=== PATIENT | female | born 1950 | race Caucasian/White ===

== ENCOUNTER → 2019-01-29 | Outpatient (CLI) | payer MEDICARE ==
--- NOTE | 2019-01-31 13:45 | MM ---
Reason for exam: screening (asymptomatic). Last mammogram was performed 11 years and 4 months ago. Physical Findings: A clinical breast exam by your physician is recommended on an annual basis and results should be correlated with mammographic findings. MG 3D Screening Mammo W/Cad Bilateral CC and MLO view(s) were taken. Prior study comparison: September 19, 2007, bilateral digital screening mammogram. The breast tissue is almost entirely fat. No significant changes when compared with prior studies. ASSESSMENT: Benign, BI-RAD 2 RECOMMENDATION: Routine screening mammogram of both breasts in 1 year.
== END | disposition home or self-care (01) ==
LOC: RADMAMWWP 13:16
PROVIDERS: ATTEND Family Medicine
DX: Z12.31 Encounter for screening mammogram for malignant neoplasm of breast (principal)
CPT/HCPCS: 77063; 77067

== ENCOUNTER → 2023-06-06 | Outpatient (CLI) | payer MEDICARE ==
--- NOTE | 2023-06-06 14:52 | XR ---
EXAMINATION TYPE: XR chest 2V DATE OF EXAM: 06/06/2023 COMPARISON: None HISTORY: 73-year-old female cough and shortness of breath TECHNIQUE: Frontal and lateral views FINDINGS: The heart is normal size. Aorta and pulmonary vasculature within normal limits. Atherosclerotic arch calcifications. Hyperinflation. There is patchy left basilar opacity in the periphery of the lung. No other consolidation or pleural effusion seen. IMPRESSION: 1. COPD. 2. There is some patchy opacity at the periphery of the left base that could represent atelectasis or a developing infiltrate/pneumonia. Clinically correlate.
== END | disposition home or self-care (01) ==
LOC: RADXRYALE 11:19
PROVIDERS: ATTEND Physician Assistant
DX: J44.9 Chronic obstructive pulmonary disease, unspecified (principal)
CPT/HCPCS: 71046

== ENCOUNTER 2023-06-17 12:51 | Inpatient (IN) | payer MEDICARE ==
[2023-06-17] MEDS ORDERED: DILTIAZEM DRIP BOLUS FROM BAG 1 MG SOLN IV STA (13:14)
[2023-06-17] MEDS ORDERED: ASPIRIN 81 MG PO STA (13:14)
[2023-06-17] MEDS ORDERED: DILTIAZEM 125 MG in SODIUM CHLORIDE 0.9% 100 ML IV SCH (13:15)
[2023-06-17] MEDS ORDERED: SODIUM CHLORIDE 0.9% 500 ML 500 ML IV STA (13:19)
--- NOTE | 2023-06-17 13:28 | ED ---
General Adult HPI - General Chief complaint: Arrhythmia/Palpitations Stated complaint: Tachycardia Time Seen by Provider: 06/17/23 13:02 Source: patient, RN notes reviewed, old records reviewed Mode of arrival: ambulatory Limitations: no limitations, physical limitation - History of Present Illness Initial comments: Patient is a 73-year-old female with past medical history remarkable for COPD, hypertension who presents mostly department: Palpitations and intermittent shortness of breath for last 2 days. Just finished a long course of steroids and antibiotics 3 days ago for upper respiratory infection as prescribed by PCP. States that since that time she has been feeling somewhat off. Originally thought it was just residual effects from the steroids however said comments today due to persistent palpitations. Denies any cristina chest pain. States she feels like her heart is racing. Denies nausea, vomiting, abdominal pain. Nurses mild exertional dyspnea. Is not usually on oxygen at home. Denies any lower extremity edema. No history of blood clots. No history of cardiac stents. Presents for further evaluation of this time. Is not on blood thinners. No trauma. - Related Data Home Medications Medication Instructions Recorded Confirmed Albuterol Sulfate [Albuterol 1 - 2 puff PO RT-Q4H PRN 06/17/23 06/17/23 Sulfate Hfa] Fluticasone/Umeclidin/Vilanter 1 puff INHALATION RT-DAILY 06/17/23 06/17/23 [Trelegy Ellipta 100-62.5-25] Lisinopril-Hctz 20-12.5 mg 1 tab PO DAILY 06/17/23 06/17/23 [Zestoretic 20-12.5] Allergies Allergy/AdvReac Type Severity Reaction Status Date / Time No Known Allergies Allergy Verified 06/17/23 17:11 Review of Systems ROS Statement: Those systems with pertinent positive or pertinent negative responses have been documented in the HPI. Review of Systems: CONST: Denies fever EYES: Denies blurry vision ENT: Denies nasal congestion C/V: Endorses palpitations RESP: Endorses mild shortness of breath GI: Denies abdominal pain : Denies dysuria SKIN: Denies rash. MSK: Denies joint pain. NEURO: Denies headache ROS Other: All systems not noted in ROS Statement are negative. Past Medical History Past Medical History: COPD, Hypertension History of Any Multi-Drug Resistant Organisms: None Reported Additional Past Surgical History / Comment(s): Eye Past Psychological History: No Psychological Hx Reported Smoking Status: Former smoker Past Alcohol Use History: Occasional Past Drug Use History: Marijuana General Exam - General Exam Comments Initial Comments: General: Appears in no acute distress. HEAD: Normal with no signs of head trauma. EYES: PERRLA, EOMI, conjunctiva normal, no discharge. ENT: Hearing grossly intact, normal oropharynx. RESPIRATORY: Clear breath sounds bilaterally. Very mild wheezing bilaterally C/V: Irregular rate and rhythm. S1 and S2 auscultated, no significant edema, peripheral pulses 2+ and intact throughout ABD: Abd is soft, nontender, nondistended EXT: Normal range of motion, no obvious deformity SKIN: No rashes or lesions observed on exposed skin.] NEURO:Alert and oriented x 4. Limitations: no limitations, physical limitation Course Vital Signs 06/17/23 06/17/23 06/17/23 12:54 13:30 13:59 Temperature 98.3 F Pulse Rate 170 H 158 H 144 H Respiratory 22 19 18 Rate Blood Pressure 60/32 129/88 116/72 O2 Sat by Pulse 92 L 97 Oximetry 06/17/23 06/17/23 14:00 15:00 Temperature Pulse Rate 133 H 120 H Respiratory 18 Rate Blood Pressure 98/82 113/82 O2 Sat by Pulse 97 Oximetry Medical Decision Making - Medical Decision Making Was pt. sent in by a medical professional or institution ([facility], OIL PIPE INSPECTOR, urgent care, hospital, or alf...) When possible be specific @ -No Did you speak to anyone other than the patient for history (EMS, parent, family, police, friend...)? What history was obtained from this source @ -No Did you review nursing and triage notes (agree or disagree)? Why? @ -I reviewed and agree with nursing and triage notes Were old charts reviewed (outside hosp., previous admission, EMS record, old EKG, old radiological studies, urgent care reports/EKG's, alf records)? Report findings @ -Old charts reviewed Differential Diagnosis (chest pain, altered mental status, abdominal pain women, abdominal pain men, vaginal bleeding, weakness, fever, dyspnea, syncope, headache, dizziness, GI bleed, back pain, seizure, CVA, palpatations, mental health, musculoskeletal)? @ -Differential Palpitations Ventricular arrhythmias, atrial arrhythmias, myocardial infarction, anemia, thyrotoxicosis, electrolyte imbalance, hypokalemia, pulmonary embolism, pulmonary disease, drugs, alcohol, anxiety, stress.... This is not meant to be an all-inclusive list. EKG interpreted by me (3pts min.). @ -As above X-rays interpreted by me (1pt min.). @ -Chest x-ray reveals possible right lower lobe infiltrate. CT interpreted by me (1pt min.). @ -None done U/S interpreted by me (1pt. min.). @ -None done What testing was considered but not performed or refused? (CT, X-rays, U/S, labs)? Why? @ -None What meds were considered but not given or refused? Why? @ -None Did you discuss the management of the patient with other professionals (professionals i.e. , PA, OIL PIPE INSPECTOR, lab, RT, psych nurse, social media job titles, radio sales account executive, teacher, mechanical engineering officer, field nurse case manager)? Give summary @ -I discussed with the admitting physician, Dr. Sánchez who accepted the patient. Was smoking cessation discussed for >3mins.? @ -No Was critical care preformed (if so, how long)? @ -Yes, 38 minutes Were there social determinants of health that impacted care today? How? (Homelessness, low income, unemployed, alcoholism, drug addiction, transportation, low edu. Level, literacy, decrease access to med. care, prison, rehab)? @ -No Was there de-escalation of care discussed even if they declined (Discuss DNR or withdrawal of care, Hospice)? DNR status @ -No What co-morbidities impacted this encounter? (DM, HTN, Smoking, COPD, CAD, Cancer, CVA, ARF, Chemo, Hep., AIDS, mental health diagnosis, sleep apnea, morbid obesity)? @ -None Was patient admitted / discharged? Hospital course, mention meds given and route, prescriptions, significant lab abnormalities, going to OR and other pertinent info. @ -Based on the patient's presentation and physical exam, patient presents lying of palpitations. Appears to be in atrial fibrillation with RVR. Blood pressure with questionable reliability obtained in triage was 60/32. Patient was brought to trauma bay 1. Repeat blood pressures within acceptable limits. Patient has no symptoms at this time other than mild palpitations and is in A. fib with RVR. We will obtain cardiac workup. Patient agreement this plan. She will receive a small bolus of IV fluids as well as Cardizem drip and an aspirin. We'll screen the patient for a PE. Patient was in agreement this plan. Patient also be started on heparin. Patient was in agreement this plan. Chest x-ray unremarkable other than possible mild developing right lower lobe infiltrate. Labs are remarkable for an elevated d-dimer at 2.19. Undetectable troponin. BNP slightly elevated for her age. Likely secondary to the A. fib. Remainder the labs are within acceptable limits. I discussed results of the patient. Due to the elevated d-dimer, we will obtain a CT PE. CT shows possible infectious process in bilateral lungs but no evidence of pulmonary embolism. On reevaluation, on a Cardizem drip patient's heart rate has improved from 170s to 180s to 120 or less on average. Remains hemodialysis stable. We discussed her workup as well as findings. We will treat the patient with IV antibiotics for the pneumonia, Rocephin as well as azithromycin. He'll be kept on Cardizem drip. She was started on a heparin drip for new onset A. fib. Patient in agreement with this plan. Cardiology consulted. Echo ordered. Discussed with the admitting team, Dr. Sánchez who accepted the patient. Undiagnosed new problem with uncertain prognosis? @ -No Drug Therapy requiring intensive monitoring for toxicity (Heparin, Nitro, Insulin, Cardizem)? @ -Heparin, Cardizem Were any procedures done? @ -No Diagnosis/symptom? @ -New-onset atrial fibrillation with RVR, pneumonia Acute, or Chronic, or Acute on Chronic? @ -Acute Uncomplicated (without systemic symptoms) or Complicated (systemic symptoms)? @ -Complicated Side effects of treatment? @ -No Exacerbation, Progression, or Severe Exacerbation? @ -No Poses a threat to life or bodily function? How? (Chest pain, USA, IA, pneumonia, PE, COPD, DKA, ARF, appy, cholecystitis, CVA, Diverticulitis, Homicidal, Suicidal, threat to staff... and all critical care pts) @ -Yes - Lab Data Result diagrams: 06/17/23 13:20 06/17/23 13:20 Lab Results 06/17/23 06/17/23 06/17/23 Range/Units 13:20 13:20 13:20 WBC 9.8 (3.8-10.6) k/uL RBC 3.92 (3.80-5.40) m/uL Hgb 13.8 (11.4-16.0) gm/dL Hct 41.2 (34.0-46.0) % MCV 105.0 H (80.0-100.0) fL MCH 35.2 H (25.0-35.0) pg MCHC 33.5 (31.0-37.0) g/dL RDW 13.2 (11.5-15.5) % Plt Count 298 (150-450) k/uL MPV 7.8 Neutrophils % 79 % Lymphocytes % 13 % Monocytes % 5 % Eosinophils % 1 % Basophils % 0 % Neutrophils # 7.8 H (1.3-7.7) k/uL Lymphocytes # 1.3 (1.0-4.8) k/uL Monocytes # 0.5 (0-1.0) k/uL Eosinophils # 0.1 (0-0.7) k/uL Basophils # 0.0 (0-0.2) k/uL Macrocytosis Slight PT 11.8 (10.0-12.5) sec INR 1.1 (<1.2) APTT 22.3 (22.0-30.0) sec D-Dimer 2.92 H (<0.60) mg/L FEU Sodium (137-145) mmol/L Potassium (3.5-5.1) mmol/L Chloride (98-107) mmol/L Carbon Dioxide (22-30) mmol/L Anion Gap mmol/L BUN (7-17) mg/dL Creatinine (0.52-1.04) mg/dL Est GFR (CKD-EPI)AfAm (>60 ml/min/1.73 sqM) Est GFR (CKD-EPI)NonAf (>60 ml/min/1.73 sqM) Glucose (74-99) mg/dL Calcium (8.4-10.2) mg/dL Magnesium (1.6-2.3) mg/dL Total Bilirubin (0.2-1.3) mg/dL AST (14-36) U/L ALT (4-34) U/L Alkaline Phosphatase (38-126) U/L Troponin I (0.000-0.034) ng/mL NT-Pro-B Natriuret Pep pg/mL Total Protein (6.3-8.2) g/dL Albumin (3.5-5.0) g/dL TSH (0.465-4.680) mIU/L Urine Color Yellow Urine Appearance Clear (Clear) Urine pH 6.0 (5.0-8.0) Ur Specific [place] 1.012 (1.001-1.035) Urine Protein Negative (Negative) Urine Glucose (UA) Negative (Negative) Urine Ketones Negative (Negative) Urine Blood Negative (Negative) Urine Nitrite Negative (Negative) Urine Bilirubin Negative (Negative) Urine Urobilinogen <2.0 (<2.0) mg/dL Ur Leukocyte Esterase Negative (Negative) Influenza Type A (PCR) (Not Detectd) Influenza Type B (PCR) (Not Detectd) RSV (PCR) (Not Detectd) SARS-CoV-2 (PCR) (Not Detectd) 06/17/23 06/17/23 06/17/23 Range/Units 13:20 13:20 13:20 WBC (3.8-10.6) k/uL RBC (3.80-5.40) m/uL Hgb (11.4-16.0) gm/dL Hct (34.0-46.0) % MCV (80.0-100.0) fL MCH (25.0-35.0) pg MCHC (31.0-37.0) g/dL RDW (11.5-15.5) % Plt Count (150-450) k/uL MPV Neutrophils % % Lymphocytes % % Monocytes % % Eosinophils % % Basophils % % Neutrophils # (1.3-7.7) k/uL Lymphocytes # (1.0-4.8) k/uL Monocytes # (0-1.0) k/uL Eosinophils # (0-0.7) k/uL Basophils # (0-0.2) k/uL Macrocytosis PT (10.0-12.5) sec INR (<1.2) APTT (22.0-30.0) sec D-Dimer (<0.60) mg/L FEU Sodium 131 L (137-145) mmol/L Potassium 4.0 (3.5-5.1) mmol/L Chloride 97 L (98-107) mmol/L Carbon Dioxide 22 (22-30) mmol/L Anion Gap 12 mmol/L BUN 15 (7-17) mg/dL Creatinine 0.62 (0.52-1.04) mg/dL Est GFR (CKD-EPI)AfAm >90 (>60 ml/min/1.73 sqM) Est GFR (CKD-EPI)NonAf >90 (>60 ml/min/1.73 sqM) Glucose 133 H (74-99) mg/dL Calcium 8.9 (8.4-10.2) mg/dL Magnesium 1.9 (1.6-2.3) mg/dL Total Bilirubin 0.7 (0.2-1.3) mg/dL AST 52 H (14-36) U/L ALT 66 H (4-34) U/L Alkaline Phosphatase 96 (38-126) U/L Troponin I <0.012 (0.000-0.034) ng/mL NT-Pro-B Natriuret Pep pg/mL Total Protein 6.6 (6.3-8.2) g/dL Albumin 3.6 (3.5-5.0) g/dL TSH 0.843 (0.465-4.680) mIU/L Urine Color Urine Appearance (Clear) Urine pH (5.0-8.0) Ur Specific [place] (1.001-1.035) Urine Protein (Negative) Urine Glucose (UA) (Negative) Urine Ketones (Negative) Urine Blood (Negative) Urine Nitrite (Negative) Urine Bilirubin (Negative) Urine Urobilinogen (<2.0) mg/dL Ur Leukocyte Esterase (Negative) Influenza Type A (PCR) Not Detected (Not Detectd) Influenza Type B (PCR) Not Detected (Not Detectd) RSV (PCR) Not Detected (Not Detectd) SARS-CoV-2 (PCR) Not Detected (Not Detectd) 06/17/23 Range/Units 13:20 WBC (3.8-10.6) k/uL RBC (3.80-5.40) m/uL Hgb (11.4-16.0) gm/dL Hct (34.0-46.0) % MCV (80.0-100.0) fL MCH (25.0-35.0) pg MCHC (31.0-37.0) g/dL RDW (11.5-15.5) % Plt Count (150-450) k/uL MPV Neutrophils % % Lymphocytes % % Monocytes % % Eosinophils % % Basophils % % Neutrophils # (1.3-7.7) k/uL Lymphocytes # (1.0-4.8) k/uL Monocytes # (0-1.0) k/uL Eosinophils # (0-0.7) k/uL Basophils # (0-0.2) k/uL Macrocytosis PT (10.0-12.5) sec INR (<1.2) APTT (22.0-30.0) sec D-Dimer (<0.60) mg/L FEU Sodium (137-145) mmol/L Potassium (3.5-5.1) mmol/L Chloride (98-107) mmol/L Carbon Dioxide (22-30) mmol/L Anion Gap mmol/L BUN (7-17) mg/dL Creatinine (0.52-1.04) mg/dL Est GFR (CKD-EPI)AfAm (>60 ml/min/1.73 sqM) Est GFR (CKD-EPI)NonAf (>60 ml/min/1.73 sqM) Glucose (74-99) mg/dL Calcium (8.4-10.2) mg/dL Magnesium (1.6-2.3) mg/dL Total Bilirubin (0.2-1.3) mg/dL AST (14-36) U/L ALT (4-34) U/L Alkaline Phosphatase (38-126) U/L Troponin I (0.000-0.034) ng/mL NT-Pro-B Natriuret Pep 2890 pg/mL Total Protein (6.3-8.2) g/dL Albumin (3.5-5.0) g/dL TSH (0.465-4.680) mIU/L Urine Color Urine Appearance (Clear) Urine pH (5.0-8.0) Ur Specific [place] (1.001-1.035) Urine Protein (Negative) Urine Glucose (UA) (Negative) Urine Ketones (Negative) Urine Blood (Negative) Urine Nitrite (Negative) Urine Bilirubin (Negative) Urine Urobilinogen (<2.0) mg/dL Ur Leukocyte Esterase (Negative) Influenza Type A (PCR) (Not Detectd) Influenza Type B (PCR) (Not Detectd) RSV (PCR) (Not Detectd) SARS-CoV-2 (PCR) (Not Detectd) - EKG Data -: EKG Interpreted by Me EKG Comments: 12-lead Electrocardiogram Interpretation Note EKG was reviewed and interpreted by myself. 12-lead ECG performed at 1259 is interpreted by me as revealing atrial fibrillation with RVR at a rate of 168 be ats per minute. [place] is normal. QRS duration is 101 ms, QTc is 344 ms.. There were no ST or T wave abnormalities to suggest myocardial ischemia or injury. R wave progression across the precordium was satisfactory. Critical Care Time Critical Care Time: Yes Total Critical Care Time: 38 Disposition Clinical Impression: Atrial fibrillation, Pneumonia Disposition: ADMITTED IP TO THIS HOSP Condition: Serious Time of Disposition: 16:18
[2023-06-17 13:56] LABS: Basophils % (A) 0 %; Eosinophils # (A) 0.1 k/uL (0-0.7); Eosinophils % (A) 1 %; HCT 41.2 % (34.0-46.0); HGB 13.8 gm/dL (11.4-16.0); Lymphocytes # (A) 1.3 k/uL (1.0-4.8); Lymphocytes % (A) 13 %; MCH 35.2 pg (25.0-35.0); MCHC 33.5 g/dL (31.0-37.0); Macrocytosis Slight; Mean Platelet Volume 7.8; Monocytes # (A) 0.5 k/uL (0-1.0); Monocytes % (A) 5 %; Neutrophils # (A) 7.8 k/uL (1.3-7.7); Neutrophils % (A) 79 %; Platelet Count 298 k/uL (150-450); RBC 3.92 m/uL (3.80-5.40); RDW 13.2 % (11.5-15.5); WBC 9.8 k/uL (3.8-10.6)
--- NOTE | 2023-06-17 14:00 | XR ---
EXAMINATION TYPE: XR chest 1V portable DATE OF EXAM: 06/17/2023 1:55 PM CLINICAL INDICATION:Female, 73 years old with history of cough; [facility] COMPARISON: Chest radiographs from 06/06/2023 TECHNIQUE: XR chest 1V portable Frontal view of the chest. FINDINGS: Lungs/Pleura: Subtle hazy airspace opacities within the right lung base. No evidence of pleural effus ion or pneumothorax Pulmonary vascularity: Unremarkable. Heart/mediastinum: Cardiomediastinal silhouette is unremarkable. Atherosclerotic calcifications are seen in the aorta. Musculoskeletal: No acute osseous pathology. IMPRESSION: Subtle hazy right lower lung airspace opacities which may represent developing airspace disease
[2023-06-17 14:09] LABS: INR 1.1 (<1.2); Partial Thromboplastin Time 22.3 sec (22.0-30.0); Prothrombin Time 11.8 sec (10.0-12.5)
[2023-06-17 14:17] LABS: ALT 66 U/L (4-34); AST 52 U/L (14-36); African American GFR (CKD) >90 (>60 ml/min/1.73 sqM); Albumin 3.6 g/dL (3.5-5.0); Alkaline Phosphatase 96 U/L (38-126); Anion Gap 12 mmol/L; Blood Urea Nitrogen 15 mg/dL (7-17); Calcium 8.9 mg/dL (8.4-10.2); Carbon Dioxide 22 mmol/L (22-30); Chloride 97 mmol/L (98-107); Glucose 133 mg/dL (74-99); Magnesium 1.9 mg/dL (1.6-2.3); Non-African American GFR(CKD) >90 (>60 ml/min/1.73 sqM); Sodium 131 mmol/L (137-145); Total Bilirubin 0.7 mg/dL (0.2-1.3); Total Protein 6.6 g/dL (6.3-8.2)
[2023-06-17 15:04] LABS: Appearance,Urine Clear (Clear); Bilirubin,Urine Negative (Negative); Blood,Urine Negative (Negative); Color,Urine Yellow; Glucose,Urine (UA) Negative (Negative); Ketones,Urine Negative (Negative); Leukocyte Esterase,Urine Negative (Negative); Nitrite,Urine Negative (Negative); Protein,Urine Negative (Negative); Specific Gravity,Urine 1.012 (1.001-1.035); Urobilinogen,Urine <2.0 mg/dL (<2.0)
--- NOTE | 2023-06-17 16:14 | CT ---
EXAMINATION TYPE: CT chest angio for PE CT DLP: 306ml mGycm, Automated exposure control for dose reduction was used. DATE OF EXAM: 06/17/2023 3:17 PM COMPARISON: None. CLINICAL INDICATION:Female, 73 years old with history of elevated dimer, eval for pe; elevated dimer, eval for pe and tachycardia TECHNIQUE/CONTRAST: CTA scan of the thorax is performed with IV Contrast, patient injected with 70ml mL of Isovue 370, [place] P images are created and reviewed these are created on a separate workstation.. FINDINGS: Pulmonary Artery: There is no evidence for a filling defect within the pulmonary vasculature to sugge st acute pulmonary embolism. The pulmonary artery is of normal size 2.5 cm. Heart: The heart is mildly enlarged for size. Mild to moderate coronary arterial calcifications. Vasculature: Mild/moderate calcified atherosclerosis of the aorta without evidence of aneurysm. Mediastinum: Multiple mildly prominent mediastinal nodes without enlargement by size criteria, likely reactive. Airway: Central airways are patent. Mild secretion in the distal trachea. Borderline bronchiectasis b ilaterally. Lower neck: No significant findings. Soft Tissues: Unremarkable. Lungs/Pleura: Moderate to severe centrilobular emphysematous changes bilaterally. There is no discret e mass seen. There are moderate right and small left pleural effusions. Mild stranding at the left lauren ng base, likely atelectasis over infiltrate. Some atelectasis adjacent to the right effusion, with th e appearance of patchy consolidation and some interstitial opacities in the right lung base raising c oncern for possible superimposed pneumonia. No pneumothorax. Musculoskeletal: Generalized bony demineralization. Mild/moderate degenerative changes throughout the spine with slightly exaggerated kyphosis. No acute bony abnormality is seen. Upper Abdomen: No acute abnormalities. There is reflux of contrast to the hepatic veins suggesting ri ght heart insufficiency. Calcified atherosclerotic plaque of the upper abdominal aorta. A low-density 3.3 cm partially exophytic nodule from the superior left kidney, consistent with a cyst. IMPRESSION: 1. No evidence of pulmonary embolism. 2. Atherosclerotic calcifications of the aorta and coronary arteries. 3. Mild cardiomegaly with evidence of right heart insufficiency. Moderate right and small left pleur al effusions. 4. Bibasilar pulmonary opacities, likely atelectasis, with superimposed infectious process considere d especially in the right lung base. 5. Moderate to severe centrilobular pulmonary emphysema.
[2023-06-17] MEDS ORDERED: HEPARIN SODIUM 1,000 UN/ML (10ML VL) IV ONE (16:40)
[2023-06-17] MEDS ORDERED: NALOXONE 0.4 MG/ML 1 ML VIAL IV PRN (16:41)
[2023-06-17] MEDS ORDERED: ONDANSETRON 4 MG/2 ML VIAL IVP PRN (16:41)
[2023-06-17] MEDS ORDERED: ACETAMINOPHEN TAB 325 MG TAB PO PRN (16:41)
[2023-06-17] MEDS ORDERED: SODIUM CHLORIDE 0.9% 1,000 ML IV SCH (16:45)
[2023-06-17] MEDS ORDERED: AZITHROMYCIN 500 MG in SODIUM CHLORIDE 0.9% 250 ML IVPB STA (16:46)
[2023-06-17] MEDS: HEPARIN SOD,PORK IN 0.45% NACL 25,000 UNIT in 0.45% NACL 1 250ML.BAG IV SCH (16:59)
[2023-06-17] MEDS ORDERED: IPRATROPIUM-ALBUTEROL 3 ML NEB INHALATION PRN (18:22)
--- NOTE | 2023-06-17 18:33 | P.HPIM ---
History of Present Illness H&P Date: 06/17/23 History of Presenting Illness: Patient is a very pleasant 73-year-old female with a past medical history of COPD and former nicotine dependence, hypertension, and hyperlipidemia. She reports that over the past 2 weeks she was battling a COPD exacerbation because of a upper respiratory infection. Patient reports she has been using her inhaler frequently and just completed a prednisone taper and 10 day course of doxycycline. Patient reports her upper respiratory infection seems a little better but today she presented to the emergency department secondary to concerns of palpitations and increasing shortness of breath over the past 2 days. Patient states she thought at first she was having a reaction to the steroids, but her PCP told her that is very unlikely she came to the emergency department for evaluation. Patient reports having significant palpitations occur heart is racing out of her chest and is noticed increased shortness of breath during this time. Patient denies having any fevers, chills, diaphoresis, headache, lightheadedness, dizziness, chest pain, or experiencing any numbness/tingling/weakness/swelling in extremities. Patient underwent full evaluation in the emergency department. Vital signs upon arrival heart rate 170, blood pressure 60/32, respiratory rate 22, temperature 98.3F, SpO2 of 92% on room air. EKG completed showing atrial fibrillation with RVR at 168 bpm. Chest x-ray completed showing subtle hazy right lower lung airspace opacities. Labs were completed and reviewed. CBC showing macrocytosis with MCV of 105.0 and MCH of 35.2. BMP showing hyponatremia with sodium of 131 and hypochloremia with chloride of 97. Liver profile showing elevated AST of 52 and ALT of 66. Troponin less than 0.012 and proBNP of 2890. TSH normal findings is 0.843. Urinalysis was negative for infection. Influenza A, influenza B, RSV, and Covid PCR negative. D-dimer coming back elevated at 2.9 to so patient was sent for a CTA chest. CT chest was completed showing no evidence of pulmonary emboli but did reveal mild cardiomegaly with evidence of right heart insufficiency, moderate right and small left pleural effusions, diabetes or pulmonary opacities likely atelectasis, and moderate to severe centrilobular pulmonary emphysema. Patient provided with IV fluid bolus followed by Cardizem bolus and initiation o f Cardizem infusion for control of rapid ventricular rate. Patient started on low intensity heparin infusion for new onset atrial fibrillation. Patient's ventricular rate initially fluctuating between 160s and 180s and is now showing improvement on Cardizem infusion ranging between 90s and 130's. Review of systems: Pertinent positives and negatives as discussed in HPI, a complete review of systems was performed and all other systems are negative. Physical exam: Vital signs reviewed and stable. General: Nontoxic, no distress and appears stated age. Derm: Skin warm and dry, normal coloration for ethnicity. Head: Atraumatic, normocephalic and symmetric. Eyes: EOMs intact, no lid lag, and anicteric sclera Mouth: no lip lesions, mucus membranes moist Cardiovascular: Irregularly irregular, positive posterior tibial pulses bilaterally, and cap refill < 2 seconds. Lungs: Respirations even, regular, and unlabored on room air. Lungs diminished with soft expiratory wheezes, no rhonchi, rales, or crackles noted at this time Abdominal: soft, nontender to palpation, no guarding, no appreciable orga nomegaly Ext: ROM intact. No gross muscle atrophy, no edema, no contractures Neuro: Speech clear, face symmetrical and CN II-XII grossly intact with no noted focal neuro deficits Psych: Alert and oriented to person, place, time, and situation. Appropriate and pleasant affect. Assessment and Plan of Care: New-onset atrial fibrillation with RVR Bilateral pleural effusions COPD with emphysema with mild exacerbation Hypertension Hyperlipidemia Elevated d-dimer, CTA negative for PE -Cardiology consulted for new onset atrial fibrillation with RVR, appreciate recommendations -Continuation of heparin infusion along intensity rate at 12 units/kg/hr. monitor PTT every 6 hours for therapeutic goal of 44-79 seconds. -Continuation of Cardizem infusion at 7.5 mg/hr. Patient's ventricular rate initially fluctuating between 160s and 180s and is now showing improvement on Cardizem infusion ranging between 90s and 130's. -Start patient on metoprolol 25 mg twice a day -Trend troponins -Placed order for Echocardiogram to be completed -Consult to Pulmonology for mild COPD exacerbation -Continue with IV antibiotics Rocephin 2 g IVPB daily and azithromycin 500 mg daily pending pro-calcitonin results. -Oxygenation to be administered and titrated as needed to maintain SPO2 equal to or greater than 92% -Patient remain on Telemetry monitoring. -Continuous Pulse-oximetry -Duonebs scheduled every 4 hours and as needed for SOB and/or wheezing -Incentive Spirometry -Steroids: Solu-Medrol 125 mg IVP 1 dose followed by 40 mg IVP twice daily. Data and imaging reviewed: -Vital signs upon arrival heart rate 170, blood pressure 60/32, respiratory rate 22, temperature 98.3F, SpO2 of 92% on room air. -EKG completed showing atrial fibrillation with RVR at 168 bpm. -Chest x-ray completed showing subtle hazy right lower lung airspace opacities. -Labs were completed and reviewed. CBC showing macrocytosis with MCV of 105.0 and MCH of 35.2. BMP showing hyponatremia with sodium of 131 and hypochloremia with chloride of 97. Liver profile showing elevated AST of 52 and ALT of 66. Troponin less than 0.012 and proBNP of 2890. TSH normal findings is 0.843. Urinalysis was negative for infection. -Influenza A, influenza B, RSV, and Covid PCR negative. -D-dimer coming back elevated at 2.9 to so patient was sent for a CTA chest. CT chest was completed showing no evidence of pulmonary emboli but did reveal mild cardiomegaly with evidence of right heart insufficiency, moderate right and small left pleural effusions, diabetes or pulmonary opacities likely atelect asis, and moderate to severe centrilobular pulmonary emphysema. The patient is admitted with an anticipated greater than 2 midnight stay for evaluation of atrial fibrillation with RVR CODE STATUS: Full code DVT prophylaxis: Heparin infusion Anticipated discharge date: Clinical course to determine Anticipated discharge place: Clinical course to determine Patient was seen independently by Nurse Practitioner. This document was prepared using [employer] dictation software. Please allow for errors in workers compensation analyst while rare they do occur. Ronan Downs NP rendered care for this patient independently, reviewed the findings and plan as documented in the note above. I did not physically speak with or examine the patient on this date. Past Medical History Past Medical History: COPD, Hypertension History of Any Multi-Drug Resistant Organisms: None Reported Additional Past Surgical History / Comment(s): Eye Past Psychological History: No Psychological Hx Reported Smoking Status: Former smoker Past Alcohol Use History: Occasional Past Drug Use History: Marijuana Medications and Allergies Home Medications Medication Instructions Recorded Confirmed Type Albuterol Sulfate [Albuterol 1 - 2 puff PO RT-Q4H PRN 06/17/23 06/17/23 History Sulfate Hfa] Fluticasone/Umeclidin/Vilanter 1 puff INHALATION RT-DAILY 06/17/23 06/17/23 History [Trelegy Ellipta 100-62.5-25] Lisinopril-Hctz 20-12.5 mg 1 tab PO DAILY 06/17/23 06/17/23 History [Zestoretic 20-12.5] Apixaban [Eliquis] 5 mg PO BID 30 Days #60 tab 06/18/23 Rx Allergies Allergy/AdvReac Type Severity Reaction Status Date / Time No Known Allergies Allergy Verified 06/17/23 17:11 Physical Exam Vitals: Vital Signs Temp Pulse Resp BP Pulse Ox 06/17/23 15:00 120 H 113/82 06/17/23 14:00 133 H 18 98/82 97 06/17/23 13:59 144 H 18 116/72 97 06/17/23 13:30 158 H 19 129/88 06/17/23 12:54 98.3 F 170 H 22 60/32 92 L Intake and Output 06/17/23 06/17/23 06/17/23 06:59 14:59 22:59 Other: Weight 71.214 kg Results CBC & Chem 7: 06/18/23 06:36 06/18/23 06:36 Labs: Abnormal Lab Results - Last 24 Hours (Table) 06/17/23 06/17/23 06/17/23 Range/Units 13:20 13:20 13:20 MCV 105.0 H (80.0-100.0) fL MCH 35.2 H (25.0-35.0) pg Neutrophils # 7.8 H (1.3-7.7) k/uL D-Dimer 2.92 H (<0.60) mg/L FEU Sodium 131 L (137-145) mmol/L Chloride 97 L (98-107) mmol/L Glucose 133 H (74-99) mg/dL AST 52 H (14-36) U/L ALT 66 H (4-34) U/L
[2023-06-17] MEDS: SODIUM CHLORIDE 0.9% 1,000 ML IV SCH (18:44)
[2023-06-17] MEDS: methylPREDNISolone SOD SUCCI 125 MG/2 ML VIAL IV STA (18:54)
[2023-06-17] MEDS: IPRATROPIUM-ALBUTEROL 3 ML NEB INHALATION SCH (19:42)
[2023-06-17] MEDS ORDERED: IPRATROPIUM-ALBUTEROL 3 ML NEB INHALATION SCH (20:00)
[2023-06-17] MEDS ORDERED: METOPROLOL TARTRATE 25 MG TAB PO SCH (21:00)
[2023-06-18] MEDS: HEPARIN SODIUM 1,000 UN/ML (10ML VL) IV PRN ×2 (01:50→13:16)
--- NOTE | 2023-06-18 03:57 | P.CNPUL ---
History of Present Illness Consult date: 06/18/23 Requesting physician: Ronan Downs Reason for consult: COPD Chief complaint: Heart palpitations, lightheadedness, shortness of breath History of present illness: I am seeing this patient in consultation today 06/18/2023 in the emergency room after the patient presented yesterday afternoon with the chief complaint of heart palpitations with associated lightheadedness and shortness of breath. She was found to be in atrial fibrillation with RVR. Also, likely has an exacerbation of her known COPD. Patient is a 73-year-old female with past medical history significant for hypertension, COPD, and his remote ex-smoker. Her PCP is Sherin Dow, delores PA out of Dr. Montenegro's office. She normally manages her COPD with a combination of Trelegy inhaler and albuterol rescue inhaler. Over the last 3 weeks, she's been struggling with URI-like symptoms, such as nasal congestion, postnasal drip, and cough with pale yellow sputum. Denies any fevers or chest pain. States that she thinks her granddaughter gave her a cold. She originally visited an urgent care center when this started, and then recently followed up with her PCP. She received a burst taper prednisone and doxycycline outpatient. She did have some initial improvement, but then started to experience chest palpitations that are accompanied with dizziness/lightheaded and shortness of breath. Denies any syncope. Denies any chest pain, lower extremity swelling. On arrival to the emergency room, the patient was found to be in atrial fibrillation with rapid ventricular rate. She was started on Cardizem which is currently infusing at 5 mg per hour. She is also been started on heparin per protocol. Chest x-ray on arrival demonstrated subtle haziness of the right lower lung which may represent developing airspace disease versus atelectasis. D-dimer was elevated. Patient did have a follow-up chest CTA which did not show any pulmonary embolism. There was mild cardiomegaly with evidence of right heart insufficiency. Moderate right and small left pleural effusions. Bibasilar pulmonary opacities likely atelectasis with possible superimposed infectious process at the right lung base. There is moderate to severe centrilobular pulmonary emphysema. Patient is currently sitting up in bed, on room air, in no acute distress. Heart rhythm remains atrial fibrillation with more controlled rate of about 100-110 bpm while at rest. Blood pressure is normotensive. Afebrile. CBC was unremarkable without any leukocytosis. BMP with sodium of 131, potassium 4, chloride 97, serum bicarb 22, BUN 15, creatinine 0.62, glucose 133. Troponins are elevated 3. NT proBNP was 2890. Procalcitonin level low at 0.07. Negative for influenza, RSV, COVID-19. Patient was started on a combination of azithromycin and Rocephin in the ER. Also receiving a combination of DuoNeb's, Symbicort inhaler, and IV Solu-Medrol. Patient is being admitted to the cardiac stepdown unit once bed available. Review of Systems REVIEW OF SYSTEMS: CONSTITUTIONAL: Denies any recent significant weight loss or weight gain. EYES: Denies change in vision. EARS, NOSE, MOUTH, THROAT: Denies headaches, denies sore throat. CARDIOVASCULAR: See HPI. RESPIRATORY: See HPI GASTROINTESTINAL: Denies change in appetite, abdominal pain, nausea and vomiting, or diarrhea GENITOURINARY: Denies hematuria, denies infections. MUSKULOSKELETAL: Denies pain, denies swelling. INTEGUMENTARY: Denies rash, denies eczema. NEUROLOGICAL: Denies recent memory loss, no recent seizure activity. PSYCHIATRIC: Denies anxiety, denies depression. HEMATOLOGIC/LYMPHATIC: Denies anemia, denies enlarged lymph nodes Past Medical History Past Medical History: COPD, Hypertension History of Any Multi-Drug Resistant Organisms: None Reported Additional Past Surgical History / Comment(s): Eye Past Psychological History: No Psychological Hx Reported Smoking Status: Former smoker Past Alcohol Use History: Occasional Past Drug Use History: Marijuana Medications and Allergies Home Medications Medication Instructions Recorded Confirmed Type Albuterol Sulfate [Albuterol 1 - 2 puff PO RT-Q4H PRN 06/17/23 06/17/23 History Sulfate Hfa] Fluticasone/Umeclidin/Vilanter 1 puff INHALATION RT-DAILY 06/17/23 06/17/23 History [Trelegy Ellipta 100-62.5-25] Lisinopril-Hctz 20-12.5 mg 1 tab PO DAILY 06/17/23 06/17/23 History [Zestoretic 20-12.5] Allergies Allergy/AdvReac Type Severity Reaction Status Date / Time No Known Allergies Allergy Verified 06/17/23 17:11 Physical Exam Vitals: Vital Signs Temp Pulse Resp BP Pulse Ox 06/18/23 01:17 107 H 14 105/57 06/17/23 23:18 101 H 14 107/70 92 L 06/17/23 22:21 96 14 91/58 92 L 06/17/23 21:28 93 14 91/59 92 L 06/17/23 20:23 105 H 90/59 92 L 06/17/23 19:44 111 H 16 91/58 95 06/17/23 19:37 104 H 06/17/23 19:32 102 H 06/17/23 18:57 101 H 18 96/47 94 L 06/17/23 15:00 120 H 113/82 06/17/23 14:00 133 H 18 98/82 97 06/17/23 13:59 144 H 18 116/72 97 06/17/23 13:30 158 H 19 129/88 06/17/23 12:54 98.3 F 170 H 22 60/32 92 L Intake and Output 06/17/23 06/17/23 06/18/23 14:59 22:59 06:59 Intake Total 75.062 Balance 75.062 Intake: Intake, IV Titration 75.062 Amount Heparin Sod,Pork in 0.45% 75.062 NaCl 25,000 unit In 0.45 % NaCl 1 250ml.bag @ 12 UNITS/KG/HR 8.546 mls/hr IV .Q24H [facility] Rx#: [id number] Other: Weight 71.214 kg GENERAL EXAM: Alert, 73-year-old white female appearing stated age, comfortable in no apparent distress. HEAD: Normocephalic and atraumatic EYES: Normal reaction of pupils, equal size. NOSE: Clear with pink turbinates. THROAT: No erythema or exudates. NECK: No masses, no JVD. CHEST: No chest wall deformity. LUNGS: Equal air entry with mild end expiratory wheezes heard throughout. No crackles, rhonchi, dullness. On room air. No conversational dyspnea or accessory muscle use.. CVS: S1 and S2 normal with no audible murmur, irregular rhythm. No extra heart sounds ABDOMEN: No hepatosplenomegaly, active bowel sounds, no guarding or rigidity. SPINE: No scoliosis or deformity SKIN: No rashes CENTRAL NERVOUS SYSTEM: No focal deficits, tone is normal in all 4 extremities. EXTREMITIES: There is no peripheral edema, clubbing, or cyanosis. Peripheral pulses are intact. Results - Laboratory Findings CBC and BMP: 06/17/23 13:20 06/17/23 13:20 PT/INR, D-dimer PT 11.8 sec (10.0-12.5) 06/17/23 13:20 INR 1.1 (<1.2) 06/17/23 13:20 D-Dimer 2.92 mg/L FEU (<0.60) H 06/17/23 13:20 Abnormal lab findings: Abnormal Labs 06/17/23 06/17/23 06/17/23 13:20 13:20 13:20 MCV 105.0 H MCH 35.2 H Neutrophils # 7.8 H APTT D-Dimer 2.92 H Sodium 131 L Chloride 97 L Glucose 133 H AST 52 H ALT 66 H 06/17/23 22:58 MCV MCH Neutrophils # APTT 34.5 H D-Dimer Sodium Chloride Glucose AST ALT - Diagnostic Findings Chest x-ray: image reviewed CT scan - chest: image reviewed Assessment and Plan Assessment: New-onset atrial fibrillation with rapid ventricular rate, ventricular response is better controlled, currently on Cardizem infusion Dyspnea, secondary to mild exacerbation of COPD and suspected exacerbation of congestive heart failure. Chest CTA did not show any pulmonary embolism. There was mild cardiomegaly with evidence of right heart insufficiency. Moderate right and small left pleural effusions. Bibasilar pulmonary opacities likely atelectasis with possible superimposed infectious process at the right lung base. There is moderate to severe centrilobular pulmonary emphysema. Benign essential hypertension Chronic obstructive pulmonary disease Remote ex-tobacco smoker Plan: Patient's medications, labs, imaging reviewed Currently on room air. Clinically, superimposed right-sided pneumonia is felt to be less likely. Empiric antibiotics started in ER. Procalcitonin level 0.07. Negative for influenza, RSV, COVID-19 Patient has been started on a combination of DuoNeb's, Symbicort inhaler, and IV Solu-Medrol. Remains on Cardizem infusion at 5 mg per hour and heparin per protocol Echocardiogram is pending. Cardiology also consulted for management of the patient's atrial fibrillation We will continue to follow I have personally seen and examined the patient, performed the documentation and the assessment and plan as written. Number of minutes spent on the visit:20 Time with Patient: Greater than 30
[2023-06-18] MEDS: methylPREDNISolone SOD SUCCI 125 MG/2 ML VIAL IV SCH ×4 (06:32→23:36)
[2023-06-18] MEDS ORDERED: IPRATROPIUM 0.5 MG/2.5 ML NEBU INHALATION SCH (08:00)
[2023-06-18] MEDS ORDERED: NON FORMULARY DRUG (Fluticasone/Umeclidin/Vilanter [Trelegy Ellipta 100-62.5-25] 1 EACH Bl INHALATION SCH (08:00)
[2023-06-18] MEDS ORDERED: SYMBICORT 80-4.5 MCG INHALER INHALATION SCH (08:00)
[2023-06-18] MEDS: SYMBICORT 160-4.5 MCG INHALER INHALATION SCH ×2 (08:11→21:24)
[2023-06-18] MEDS: IPRATROPIUM-ALBUTEROL 3 ML NEB INHALATION SCH ×4 (08:16→21:24)
[2023-06-18 08:49] LABS: Basophils % (A) 0 %; Eosinophils # (A) 0.1 k/uL (0-0.7); Eosinophils % (A) 2 %; HCT 38.3 % (34.0-46.0); HGB 12.6 gm/dL (11.4-16.0); Lymphocytes # (A) 1.4 k/uL (1.0-4.8); Lymphocytes % (A) 22 %; MCH 34.9 pg (25.0-35.0); MCHC 32.9 g/dL (31.0-37.0); MCV 106.2 fL (80.0-100.0); Macrocytosis Moderate; Mean Platelet Volume 8.3; Monocytes # (A) 0.5 k/uL (0-1.0); Monocytes % (A) 8 %; Neutrophils % (A) 65 %; Platelet Count 236 k/uL (150-450); RBC 3.61 m/uL (3.80-5.40); RDW 13.7 % (11.5-15.5); WBC 6.3 k/uL (3.8-10.6)
[2023-06-18] MEDS ORDERED: LISINOPRIL-HCTZ 20-12.5 MG 1 EACH TAB PO SCH (09:00)
[2023-06-18] MEDS ORDERED: AZITHROMYCIN 500 MG in SODIUM CHLORIDE 0.9% 250 ML IVPB SCH (09:00)
[2023-06-18] MEDS ORDERED: methylPREDNISolone SOD SUCCI 40 MG/ML 1 ML VIAL IV SCH (09:00)
[2023-06-18 09:01] LABS: INR 1.1 (<1.2); Prothrombin Time 11.7 sec (10.0-12.5)
[2023-06-18 09:13] LABS: African American GFR (CKD) >90 (>60 ml/min/1.73 sqM); Anion Gap 9 mmol/L; Blood Urea Nitrogen 13 mg/dL (7-17); Calcium 8.6 mg/dL (8.4-10.2); Carbon Dioxide 23 mmol/L (22-30); Chloride 100 mmol/L (98-107); Glucose 90 mg/dL (74-99); Non-African American GFR(CKD) >90 (>60 ml/min/1.73 sqM); Potassium 3.7 mmol/L (3.5-5.1); Sodium 132 mmol/L (137-145)
[2023-06-18] MEDS: METOPROLOL TARTRATE 50 MG TAB PO SCH ×2 (10:01→20:46)
--- NOTE | 2023-06-18 10:19 | CONS ---
CONSULTATION CHIEF COMPLAINT: Palpitations. HISTORY OF PRESENT ILLNESS: Emilia is a 73-year-old lady with history of hypertension and severe COPD, who presented to hospital with sustained palpitations and was found to be in atrial fibrillation with rapid ventricular rate. She has recently suffered from respiratory tract infection and has had COPD exacerbation. At the time of my evaluation, the patient is in atrial fibrillation with better controlled ventricular rate on intravenous Cardizem. There is no prior history of coronary artery disease or congestive heart failure. There is no prior history of atrial fibrillation. The patient's history is significant for hypertension and is currently on Zestoretic. I am going to stop the Cardizem, start her on Lopressor 50 b.i.d., obtain a 2D echo, continue the heparin and convert her to Eliquis or Xarelto depending upon what her insurance covers. PAST MEDICAL HISTORY: Significant for COPD and hypertension. MEDICATIONS: Include: 1. Zestoretic. 2. Albuterol. ALLERGIES: There are no known drug allergies. FAMILY HISTORY: Negative for premature coronary artery disease. SOCIAL HISTORY: Negative for smoking, EtOH abuse, or drug abuse. REVIEW OF SYSTEMS: HEENT: Unremarkable. CARDIAC: As described above. RESPIRATORY: As described above. GI: Negative. GENITOURINARY: Negative. ALLERGY/IMMUNOLOGY: Negative. SKIN: Negative. MUSCULOSKELETAL: Significant for arthritis. PSYCHOSOCIAL: Negative. DERM: Negative. CONSTITUTIONAL: Negative. ONCOLOGICAL: Negative. HAZARD WASTE HANDLER: Negative. Rest of the system review is not relevant. PHYSICAL EXAMINATION: GENERAL: The patient is comfortable at rest. VITAL SIGNS: Afebrile, heart rate is 80 beats per minute, blood pressure is 110/50, respiratory rate is 18. NECK: There is no jugular venous distention. Carotid upstroke is diminished. There is no bruit. CHEST: Reveals good air entry bilaterally without any crackles or rhonchi. HEART: Reveals first and second heart sounds. No gallop. No murmur. ABDOMEN: Soft and nontender. EXTREMITIES: Did not reveal any edema. Peripheral pulses are felt. LABORATORY DATA: Show hemoglobin of 12.6, platelet count is 236. Three sets of troponins are negative. BNP is 2890 of unclear clinical significance. D-dimer was elevated. However, a CT scan of the chest is negative for pulmonary embolism. The chest x-ray did not reveal any evidence of heart failure. CT scan of the chest revealed calcification of the coronaries and the aorta and no pulmonary embolism. ASSESSMENT: 1. Persistent atrial fibrillation with poorly-controlled ventricular rate. 2. Chronic obstructive pulmonary disease exacerbation. 3. Coronary artery disease. PLAN: I will treat the patient with Lopressor. Continue heparin. We need to find out whether she is covered for Eliquis or Xarelto. If not, the patient does not wish to take Coumadin, and if the insurance does not cover it, she states that she will not be able to afford either Xarelto or Eliquis, but we need to find out what it costs. If not, she wishes to take aspirin. MMODL / IJN: [id number] /
[2023-06-18] MEDS: SODIUM CHLORIDE 0.9% 1,000 ML IV SCH (13:27)
--- NOTE | 2023-06-18 14:40 | CA ---
Transthoracic Echo Report Name: Emilia Woodward Age: 73 Gender: F : 1950 Exam Date: 06/18/2023 11:59 Exam Location: [facility] Ht (in): 64 Wt (lb): 157 Ordering Physician: Ronan Downs Attending/Referring Phys: Split Leather Mosser Ted Tillman Procedure CPT: Indications: new-onset atrial fibrillation Cardiac Hx: Technical Quality: Fair Contrast 1: Total Dose (mL): Contrast 2: Total Dose (mL): MEASUREMENTS (Male / Female) Normal Values 2D ECHO LV Diastolic Diameter PLAX 5.4 cm 4.2 - 5.9 / 3.9 - 5.3 cm IVS Diastolic Thickness 0.8 cm 0.6 - 1.0 / 0.6 - 0.9 cm LVPW Diastolic Thickness 1.0 cm 0.6 - 1.0 / 0.6 - 0.9 cm LV Relative Wall Thickness 0.3 RV Internal Dim ED PLAX 2.5 cm LVOT Diameter 1.9 cm Aortic Root Diameter 2.2 cm LA Systolic Diameter LX 3.3 cm 3.0 - 4.0 / 2.7 - 3.8 cm LV Diastolic Volume MOD BP 72.4 cm??? 67 - 155 / 56 - 104 cm??? LV Systolic Volume MOD BP 49.5 cm??? 22 - 58 / 19 - 49 cm??? LV Ejection Fraction MOD BP 31.7 % >= 55 % LV Cardiac Index MOD BP 1128.2 cm???/min???m??? LV Diastolic Volume MOD 4C 69.2 cm??? LV Systolic Volume MOD 4C 51.0 cm??? LV Ejection Fraction MOD 4C 26.3 % LV Cardiac Index MOD 4C 896.0 cm???/min???m??? LV Diastolic Length 4C 6.6 cm LV Systolic Length 4C 6.4 cm LV Diastolic Volume MOD 2C 66.5 cm??? LV Systolic Volume MOD 2C 41.4 cm??? LV Ejection Fraction MOD 2C 37.7 % LV Cardiac Index MOD 2C 1231.7 cm???/min???m??? LV Diastolic Length 2C 5.8 cm LV Systolic Length 2C 5.5 cm LA Volume 50.8 cm??? 18 - 58 / 22 - 52 cm??? LA Volume Index 28.1 cm???/m??? 16 - 28 cm???/m??? Ascending Aorta Diameter 2.9 cm DOPPLER MV Peak Velocity 108.8 cm/s MV Peak Gradient 4.7 mmHg MV Mean Velocity 43.4 cm/s MV Mean Gradient 1.0 mmHg MV Velocity Time Integral 22.4 cm MR Peak Velocity 325.8 cm/s MR Peak Gradient 42.5 mmHg Mitral E Point Velocity 98.2 cm/s Mitral A Point Velocity 35.2 cm/s Mitral E to A Ratio 2.8 MV Deceleration Time 108.0 ms MV E' Velocity 8.8 cm/s Mitral E to MV E' Ratio 11.2 TR Peak Velocity 291.2 cm/s TR Peak Gradient 33.9 mmHg Right Ventricular Systolic Press 38.9 mmHg PV Peak Velocity 76.3 cm/s PV Peak Gradient 2.3 mmHg FINDINGS Left Ventricle Normal LV size and wall thickness. Left ventricular ejection fraction is estimated at 25-30 %. Right Ventricle Normal right ventricular size. RVSP=39mmHg. Right Atrium Normal right atrial size. Left Atrium Normal left atrial size. LA volume index= 29ml/m2 Mitral Valve Structurally normal mitral valve. Mild MR. Aortic Valve Trileaflet aortic valve. No aortic regurgitation. No aortic stenosis. Tricuspid Valve Structurally normal tricuspid valve. Mild to Moderate TR. Pulmonic Valve Pulmonic valve not well visualized. No pulmonic regurgitation. Pericardium Normal pericardium. Aorta Normal size aortic root . CONCLUSIONS Left ventricular ejection fraction 25-30% RVSP 39 Mild mitral regurgitation [id number] tricuspid regurgitation No pericardial effusion Previewed by: Dr. Blaise Urena DO (Electronically Signed) Final Date: 18 June 2023 14:39
--- NOTE | 2023-06-18 17:04 | P.PN ---
Subjective Progress Note Date: 06/18/23 Hospital course: Patient is a very pleasant 73-year-old female with a past medical history of COPD and former nicotine dependence, hypertension, and hyperlipidemia. She reports that over the past 2 weeks she was battling a COPD exacerbation because of a upper respiratory infection. Patient reports she has been using her inhaler frequently and just completed a prednisone taper and 10 day course of doxycycline. Patient reports her upper respiratory infection seems a little better but today she presented to the emergency department secondary to concerns of palpitations and increasing shortness of breath over the past 2 days. Patient states she thought at first she was having a reaction to the steroids, but her PCP told her that is very unlikely she came to the emergency department for evaluation. Patient reports having significant palpitations occur heart is racing out of her chest and is noticed increased shortness of breath during this time. Patient denies having any fevers, chills, diaphoresis, headache, lightheadedness, dizziness, chest pain, or experiencing any numbness/tingling/weakness/swelling in extremities. Patient underwent full e valuation in the emergency department. Vital signs upon arrival heart rate 170, blood pressure 60/32, respiratory rate 22, temperature 98.3F, SpO2 of 92% on room air. EKG completed showing atrial fibrillation with RVR at 168 bpm. Chest x-ray completed showing subtle hazy right lower lung airspace opacities. Labs were completed and reviewed. CBC showing macrocytosis with MCV of 105.0 and MCH of 35.2. BMP showing hyponatremia with sodium of 131 and hypochloremia with chloride of 97. Liver profile showing elevated AST of 52 and ALT of 66. Troponin less than 0.012 and proBNP of 2890. TSH normal findings is 0.843. Urinalysis was negative for infection. Influenza A, influenza B, RSV, and Covid PCR negative. D-dimer coming back elevated at 2.9 to so patient was sent for a CTA chest. CT chest was completed showing no evidence of pulmonary emboli but did reveal mild cardiomegaly with evidence of right heart insufficiency, moderate right and small left pleural effusions, diabetes or pulmonary opacities likely atelectasis, and moderate to severe centrilobular pulmonary emphysema. Patient provided with IV fluid bolus followed by Cardizem bolus and initiation of Cardizem infusion for control of rapid ventricular rate. Patient started on low intensity heparin infusion for new onset atrial fibrillation. Patient's ventricular rate initially fluctuating between 160s and 180s and is now showing improvement on Cardizem infusion ranging between 90s and 130's. Physical exam: Patient seen and fully evaluated at bedside this morning she remains with rapid ventricular rate and reports continued cough and shortness of breath. Patient d oes report being somewhat better but states her palpitations severely worsened with any movement just getting up to the bedside commode. Vital signs reviewed and stable. General: Nontoxic, no distress and appears stated age. Derm: Skin warm and dry, normal coloration for ethnicity. Head: Atraumatic, normocephalic and symmetric. Eyes: EOMs intact, no lid lag, and anicteric sclera Mouth: no lip lesions, mucus membranes moist Cardiovascular: Irregularly irregular, positive posterior tibial pulses bilaterally, and cap refill < 2 seconds. Lungs: Respirations even, regular, and unlabored on room air. Lungs diminished with soft expiratory wheezes, no rhonchi, rales, or crackles noted at this time Abdominal: soft, nontender to palpation, no guarding, no appreciable organomegaly Ext: ROM intact. No gross muscle atrophy, no edema, no contractures Neuro: Speech clear, face symmetrical and CN II-XII grossly intact with no noted focal neuro deficits Psych: Alert and oriented to person, place, time, and situation. Appropriate and pleasant affect. Assessment and Plan of Care: New-onset atrial fibrillation with persistent RVR Bilateral pleural effusions COPD with emphysema with mild exacerbation Hypertension Hyperlipidemia Elevated d-dimer, CTA negative for PE -Cardiology following increased metoprolol to 50 mg twice daily. -Continuation of heparin infusion along intensity rate at 12 units/kg/hr. m onitor PTT every 6 hours for therapeutic goal of 44-79 seconds.(PTT subtherapeutic at 22.4 heparin infusion increased to 18 units/kg/hr) -Cardizem infusion was discontinued and metoprolol was increased. -Troponins trended overnight all negative at less than 0.012, 0.016, and less than 0.012. -Placed order for Echocardiogram to be completed -Pulmonology following for mild COPD exacerbation and increased Solu-Medrol to 60 mg IVP every 6 hours. -Pro-calcitonin was negative at 0.07. Discontinued IV antibiotics Rocephin and azithromycin as patient just completed 10 day course of doxycycline. -Oxygenation to be administered and titrated as needed to maintain SPO2 equal to or greater than 92% -Patient remain on Telemetry monitoring. -Monitor Pulse-oximetry -Duonebs scheduled every 4 hours and as needed for SOB and/or wheezing -Incentive Spirometry Data and imaging reviewed: -Vital signs reviewed. Blood pressure 100/55, heart rate 1:15, respiratory rate 20, temp 97.2F, and SpO2 of 95% on room air. -Labs completed and reviewed. CBC unremarkable. BMP revealing hypernatremia with sodium 132. Eliquis script sent to pharmacy for verification of insurance coverage/cost, will plan to transition patient to oral anticoagulant tomorrow morning. CODE STATUS: Full code DVT prophylaxis: Heparin infusion Anticipated discharge date: Clinical course to determine Anticipated discharge place: Clinical course to determine Patient was seen independently by Nurse Practitioner. This document was prepared using [employer] dictation software. Please allow for errors in data warehouse specialist while rare they do occur. Ronan Downs NP rendered care for this patient independently, reviewed the f indings and plan as documented in the note above. I did not physically speak with or examine the patient on this date. Objective - Vital Signs Vital signs: Vital Signs Temp 98.3 F 06/17/23 12:54 Pulse 86 06/18/23 05:41 Resp 16 06/18/23 05:41 BP 103/55 06/18/23 05:41 Pulse Ox 92 L 06/18/23 08:16 FiO2 Intake & Output 06/17/23 06/18/23 06/18/23 18:59 06:59 18:59 Intake Total 75.062 Balance 75.062 Weight 71.214 kg Intake: Intake, IV Titration 75.062 Amount Heparin Sod,Pork in 0.45% 75.062 NaCl 25,000 unit In 0.45 % NaCl 1 250ml.bag @ 12 UNITS/KG/HR 8.546 mls/hr IV .Q24H [facility] Rx#: [id number] - Labs CBC & Chem 7: 06/18/23 06:36 06/18/23 06:36 Labs: Abnormal Lab Results - Last 24 Hours (Table) 06/17/23 06/17/23 06/17/23 Range/Units 13:20 13:20 13:20 MCV 105.0 H (80.0-100.0) fL MCH 35.2 H (25.0-35.0) pg Neutrophils # 7.8 H (1.3-7.7) k/uL APTT (22.0-30.0) sec D-Dimer 2.92 H (<0.60) mg/L FEU Sodium 131 L (137-145) mmol/L Chloride 97 L (98-107) mmol/L Glucose 133 H (74-99) mg/dL AST 52 H (14-36) U/L ALT 66 H (4-34) U/L // Range/Units 22:58 MCV (80.0-100.0) fL MCH (25.0-35.0) pg Neutrophils # (1.3-7.7) k/uL APTT 34.5 H (22.0-30.0) sec D-Dimer (<0.60) mg/L FEU Sodium (137-145) mmol/L Chloride (98-107) mmol/L Glucose (74-99) mg/dL AST (14-36) U/L ALT (4-34) U/L
[2023-06-19 02:29] LABS: Chol/HDL Ratio 2.75 Ratio; LDL Cholesterol,Calculated 86.8 mg/dL (0.0-131.0); VLDL Calculation 16.94 mg/dL (5.00-40.00)
[2023-06-19] MEDS: HEPARIN SOD,PORK IN 0.45% NACL 25,000 UNIT in 0.45% NACL 1 250ML.BAG IV SCH ×2 (03:10→20:28)
[2023-06-19] MEDS: methylPREDNISolone SOD SUCCI 125 MG/2 ML VIAL IV SCH (05:51)
[2023-06-19] MEDS: METOPROLOL TARTRATE 50 MG TAB PO SCH ×2 (08:44→19:59)
[2023-06-19] MEDS: SYMBICORT 160-4.5 MCG INHALER INHALATION SCH (09:53)
[2023-06-19] MEDS: IPRATROPIUM-ALBUTEROL 3 ML NEB INHALATION SCH (09:55)
--- NOTE | 2023-06-19 12:25 | P.PN ---
Subjective Progress Note Date: 06/19/23 Principal diagnosis: Shortness of breath. I am seeing this patient in consultation today 06/18/2023 in the emergency room after the patient presented yesterday afternoon with the chief complaint of heart palpitations with associated lightheadedness and shortness of breath. She was found to be in atrial fibrillation with RVR. Also, likely has an exacerbation of her known COPD. Patient is a 73-year-old female with past medical history significant for hypertension, COPD, and his remote ex-smoker. Her PCP is delores Houston out of Dr. Montenegro's office. She normally m anages her COPD with a combination of Trelegy inhaler and albuterol rescue inhaler. Over the last 3 weeks, she's been struggling with URI-like symptoms, such as nasal congestion, postnasal drip, and cough with pale yellow sputum. Denies any fevers or chest pain. States that she thinks her granddaughter gave her a cold. She originally visited an urgent care center when this started, and then recently followed up with her PCP. She received a burst taper prednisone and doxycycline outpatient. She did have some initial improvement, but then started to experience chest palpitations that are accompanied with dizziness/lightheaded and shortness of breath. Denies any syncope. Denies any chest pain, lower extremity swelling. On arrival to the emergency room, the patient was found to be in atrial fibrillation with rapid ventricular rate. She was started on Cardizem which is currently infusing at 5 mg per hour. She is also been started on heparin per protocol. Chest x-ray on arrival demonstrated subtle haziness of the right lower lung which may represent developing airspace disease versus atelectasis. D-dimer was elevated. Patient did have a follow-up chest CTA which did not show any pulmonary embolism. There was mild cardiomegaly with evidence of right heart insufficiency. Moderate right and small left pleural effusions. Bibasilar pulmonary opacities likely atelectasis with possible superimposed infectious process at the right lung base. There is moderate to severe centrilobular pulmonary emphysema. Patient is currently sitting up in bed, on room air, in no acute distress. Heart rhythm remains atrial fibrillation with more controlled rate of about 100-110 bpm while at rest. Blood pressure is normotensive. Afebrile. CBC was unremarkable without any leukocytosis. BMP with sodium of 131, potassium 4, chloride 97, serum bicarb 22, BUN 15, creatinine 0.62, glucose 133. Troponins are elevated 3. NT proBNP was 2890. Procalcitonin level low at 0.07. Negative for influenza, RSV, COVID-19. Patient was started on a combination of azithromycin and Rocephin in the ER. Also receiving a combination of DuoNeb's, Symbicort inhaler, and IV Solu-Medrol. Patient is being admitted to the cardiac stepdown unit once bed available. Progress note dated 06/19/2023. 73-year-old female who was seen in room 382. She was initially seen in the emergency department, for complaints of heart palpitations, lightheadedness, and shortness of breath. She was found to have atrial fibrillation with RVR. The patient does have a history of hypertension, and COPD. Typically, she is on an albuterol inhaler, and Trelegy. Currently, the patient is on room air. She is receiving IV heparin. We will DC her updrafts, and DC her Symbicort. She will use her home inhalers instead. Laboratory data today includes only a PTT of 55.2. Objective - Vital Signs Vital signs: Vital Signs Temp 97.7 F 06/19/23 08:00 Pulse 134 H 06/19/23 08:00 Resp 18 06/19/23 08:00 BP 95/63 06/19/23 08:00 Pulse Ox 95 06/19/23 08:00 FiO2 Intake & Output 06/18/23 06/19/23 06/19/23 18:59 06:59 18:59 Intake Total 174.938 0 Balance 174.938 0 Weight 63.5 kg 63.5 kg Intake: Intake, IV Titration 174.938 Amount Heparin Sod,Pork in 0.45% 174.938 NaCl 25,000 unit In 0.45 % NaCl 1 250ml.bag @ 12 UNITS/KG/HR 8.546 mls/hr IV .Q24H [facility] Rx#: [id number] Oral 0 Other: Voiding Method Bedside Commode Bedside Commode # Voids 1 # Bowel Movements 1 - Exam No acute distress, oriented 3. Currently on room air. Saturations are 95%. HEENT examination is grossly unremarkable. Mucous membranes are moist. No oral lesions. Neck supple. Full range of motion. No adenopathy thyromegaly or neck vein distention. Cardiovascular examination reveals an irregular rhythm and rate. S1-S2 normal. No S3 or S4. No discernible murmur noted. Heart rate is 134 bpm. The patient is clearly in atrial fibrillation. Lungs reveal mostly clear breath sounds. Breath sounds are equal bilaterally. Minimal scattered rhonchi and crackles are appreciated. No wheezes. Room air saturation 95%. Abdomen soft bowel sounds are heard. No masses or tenderness. Extremities are intact. No cyanosis clubbing or edema. Skin is without rash or lesion. Neurologic examination is brief but nonfocal. - Labs CBC & Chem 7: 06/18/23 06:36 06/18/23 06:36 Labs: Abnormal Lab Results - Last 24 Hours (Table) 06/18/23 06/19/23 Range/Units 19:21 08:14 APTT 59.0 H 55.2 H (22.0-30.0) sec Microbiology - Last 24 Hours (Table) 06/17/23 17:05 Blood Culture - Preliminary Blood 06/17/23 17:20 Blood Culture - Preliminary Blood Assessment and Plan Assessment: New-onset atrial fibrillation with rapid ventricular response. Shortness of breath, multifactorial, in part related to COPD exacerbation, mild CHF, and atrial fibrillation with RVR. Benign essential hypertension. History of COPD, from previous tobacco use. Plan: Plan dated 06/19/2023. The patient is seen in room 382. The patient continues on IV heparin. The patient will use her home inhalers, rather than what we've ordered here in the hospital. Respiratory status is stable. Her room air saturation is 95%. The patient has atrial fibrillation with RVR, with a heart rate of 134 bpm. We will continue to follow, and make recommendations along the way. Overall prognosis remains guarded. She seems relatively stable today. Labs, x-rays, and medications are reviewed. Time with Patient: Less than 30
[2023-06-19] MEDS: FUROSEMIDE 10 MG/ML 2 ML VIAL IV SCH (12:32)
--- NOTE | 2023-06-19 14:03 | P.PN ---
Subjective Progress Note Date: 06/19/23 Hospital course: Patient is a very pleasant 73-year-old female with a past medical history of COPD and former nicotine dependence, hypertension, and hyperlipidemia. She reports that over the past 2 weeks she was battling a COPD exacerbation because of a upper respiratory infection. Patient reports she has been using her inhaler frequently and just completed a prednisone taper and 10 day course of doxycycline. Patient reports her upper respiratory infection seems a little better but today she presented to the emergency department secondary to concerns of palpitations and increasing shortness of breath x2 days. Patient underwent full evaluation in the emergency department. Vital signs upon arrival heart rate 170, blood pressure 60/32, respiratory rate 22, temperature 98.3F, SpO2 of 92% on room air. EKG completed showing atrial fibrillation with RVR at 168 bpm. Chest x-ray completed showing subtle hazy right lower lung airspace opacities. Labs were completed and reviewed. CBC showing macrocytosis with MCV of 105.0 and MCH of 35.2. BMP showing hyponatremia with sodium of 131 and hypochloremia with chloride of 97. Liver profile showing elevated AST of 52 and ALT of 66. Troponin less than 0.012 and proBNP of 2890. TSH normal findings is 0.843. Urinalysis was negative for infection. Influenza A, influenza B, RSV, and Covid PCR negative. D-dimer coming back elevated at 2.9 to so patient was sent for a CTA chest. CT chest was completed showing no evidence of pulmonary emboli but did reveal mild cardiomegaly with evidence of right heart insufficiency, moderate right and small left pleural effusions, diabetes or pulmonary opacities likely atelectasis, and moderate to severe centrilobular pulmonary emphysema. Patient provided with IV fluid bolus followed by Cardizem bolus and initiation of Cardizem infusion for control of rapid ventricular rate, ventricular rate remains rapid but improved and patient's blood pressure did stabilize as well. Patient started on low intensity heparin infusion for new onset atrial fibrillation. She was admitted under our services of consultation to cardiology. Echocardiogram was completed showing a severely impaired EF of 25- 30% with mild to moderate tricuspid regurgitation. Despite medication changes patient remains with uncontrolled rapid ventricular rate. Cardiology discussed with patient recommendations for SHELIA with cardioversion and patient is in agreement. Patient is scheduled to undergo SHELIA with cardioversion tomorrow morning. Physical exam: Patient seen and fully evaluated at bedside this morning she remains with rapid uncontrolled ventricular rate and reports continued shortness of breath accompanied by palpitations with any movement or exertion. Vital signs reviewed and stable. General: Nontoxic, no distress and appears stated age. Derm: Skin warm and dry, normal coloration for ethnicity. Head: Atraumatic, normocephalic and symmetric. Eyes: EOMs intact, no lid lag, and anicteric sclera Mouth: no lip lesions, mucus membranes moist Cardiovascular: Irregularly irregular, positive posterior tibial pulses bilater ally, and cap refill < 2 seconds. Lungs: Respirations even, regular, and unlabored on room air. Lungs diminished with soft expiratory wheezes, no rhonchi, rales, or crackles noted at this time Abdominal: soft, nontender to palpation, no guarding, no appreciable organomegaly Ext: ROM intact. No gross muscle atrophy, no edema, no contractures Neuro: Speech clear, face symmetrical and CN II-XII grossly intact with no noted focal neuro deficits Psych: Alert and oriented to person, place, time, and situation. Appropriate and pleasant affect. Assessment and Plan of Care: New-onset atrial fibrillation with persistent RVR Bilateral pleural effusions secondary to acute systolic heart failure with EF of 25-30% COPD with emphysema with mild exacerbation Hypertension Hyperlipidemia Elevated d-dimer, CTA negative for PE -Cardiology following and discussed case with after school teacher, patient scheduled to undergo SHELIA with cardioversion tomorrow morning. -Continuation of heparin infusion at 18 units/kg/hr and scheduled to discontinue at 9 PM (2 hours after starting oral anticoagulation). Monitor PTT every 6 hours for therapeutic goal of 44-79 seconds.(PTT therapeutic this morning at 59.0, continue rate at 18 Units/kg/hr) -Eliquis sent to pharmacy for insurance auth/verification and will be $150/month. Pt states she is okay with this and order placed for patient to transition to oral anticoagulation with Eliquis 5 mg BID starting tonight. -Continue metoprolol 50 mg twice daily -Echocardiogram revealing Severely reduced EF 25-30% -Pulmonology following for mild COPD exacerbation and increased Solu-Medrol to 60 mg IVP every 6 hours. -Oxygenation to be administered and titrated as needed to maintain SPO2 equal to or greater than 92% -Patient to remain on Telemetry monitoring. -Monitor Pulse-oximetry -Duonebs scheduled every 4 hours and as needed for SOB and/or wheezing -Incentive Spirometry, recommended using 10-15 times hourly while awake. Data and imaging reviewed: -Vital signs reviewed. Blood pressure 95/63, heart rate 134, respiratory rate 18, temperature 97.7F, SpO2 is 95% on room air. CODE STATUS: Full code DVT prophylaxis: Heparin infusion, transitioning to oral anticoagulation with Eliquis. Anticipated discharge date: Clinical course to determine Anticipated discharge place: Clinical course to determine Patient was seen independently by Nurse Practitioner. This document was prepared using [email or web address] dictation software. Please allow for errors in fuse maker while rare they do occur. Ronan Downs NP rendered care for this patient independently, reviewed the findings and plan as documented in the note above. I did not physically speak with or examine the patient on this date. Objective - Vital Signs Vital signs: Vital Signs Temp 97.9 F 06/18/23 20:07 Pulse 110 H 06/19/23 03:55 Resp 18 06/19/23 03:55 BP 98/62 06/19/23 03:55 Pulse Ox 93 L 06/19/23 03:55 FiO2 Intake & Output 06/18/23 06/19/23 06/19/23 18:59 06:59 18:59 Intake Total 174.938 0 Balance 174.938 0 Weight 63.5 kg Intake: Intake, IV Titration 174.938 Amount Heparin Sod,Pork in 0.45% 174.938 NaCl 25,000 unit In 0.45 % NaCl 1 250ml.bag @ 12 UNITS/KG/HR 8.546 mls/hr IV .Q24H [facility] Rx#: [id number] Oral 0 Other: Voiding Method Bedside Commode # Voids 1 # Bowel Movements 1 - Labs CBC & Chem 7: 06/18/23 06:36 06/18/23 06:36 Labs: Abnormal Lab Results - Last 24 Hours (Table) 06/18/23 06/18/23 Range/Units 06:36 19:21 APTT 59.0 H (22.0-30.0) sec Sodium 132 L (137-145) mmol/L Microbiology - Last 24 Hours (Table) 06/17/23 17:05 Blood Culture - Preliminary Blood 06/17/23 17:20 Blood Culture - Preliminary Blood
[2023-06-19] MEDS ORDERED: MIDAZOLAM 2 MG/2 ML VIAL IV PRN (14:28)
[2023-06-19] MEDS ORDERED: BENZOCAINE SPRAY 1 CAN TOPICAL PRN (14:28)
[2023-06-19] MEDS ORDERED: fentaNYL (PF) 50 MCG/ML 5 ML AMP IVP PRN (14:28)
--- NOTE | 2023-06-19 17:56 | P.PN ---
Subjective Progress Note Date: 06/19/23 SUBJECTIVE: Patient continues to be in atrial fibrillation with rapid ventricular response. Her echo cardiac exam showed an EF of 20%. She appears mildly volume overloaded with elevated JVD and 1+ pitting edema in bilateral lower extremity Synopsis: 73-year-old with hypertension and severe COPD presented to the hospital with also of palpitations and chest heaviness. On admission she was found to be in atrial fibrillation with rapid ventricular response. Pulse 125, heart rate 108/77, PHYSICAL EXAMINATION Vital signs reviewed. Head: Normocephalic. Eyes: Sclerae nonicteric. Neck: Brisk carotid upstroke, no jugular venous distention. Lungs: Clear to auscultation. Heart: Irregularly irregular, S1-S2, no S3, no murmur or rub. Abdomen: Soft nontender, positive bowel sounds no organomegaly. Extremities: No edema, intact distal pulses. ASSESSMENT Persistent atrial fibrillation with rapid ventricular response. 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 Continue anticoagulation with Eliquis. Continue metoprolol Patient needs aggressive COPD exacerbation treatment with IV steroids and inhaler therapy. Objective - Vital Signs Vital signs: Vital Signs Temp 98.3 F 06/19/23 16:00 Pulse 125 H 06/19/23 16:00 Resp 18 06/19/23 16:00 BP 130/66 06/19/23 16:00 Pulse Ox 95 06/19/23 16:00 FiO2 Intake & Output 06/18/23 06/19/23 06/19/23 18:59 06:59 18:59 Intake Total 174.938 0 118 Balance 174.938 0 118 Weight 63.5 kg 63.5 kg Intake: Intake, IV Titration 174.938 Amount Heparin Sod,Pork in 0.45% 174.938 NaCl 25,000 unit In 0.45 % NaCl 1 250ml.bag @ 12 UNITS/KG/HR 8.546 mls/hr IV .Q24H [facility] Rx#: [id number] Oral 0 118 Other: Voiding Method Bedside Commode Bedside Commode # Voids 1 # Bowel Movements 1 - Labs CBC & Chem 7: 06/18/23 06:36 06/18/23 06:36 Labs: Abnormal Lab Results - Last 24 Hours (Table) 06/18/23 06/19/23 Range/Units 19:21 08:14 APTT 59.0 H 55.2 H (22.0-30.0) sec Microbiology - Last 24 Hours (Table) 06/17/23 17:05 Blood Culture - Preliminary Blood 06/17/23 17:20 Blood Culture - Preliminary Blood
[2023-06-19] MEDS: APIXABAN 5 MG TAB PO SCH (19:59)
[2023-06-19] MEDS: SODIUM CHLORIDE 0.9% 1,000 ML IV SCH (20:27)
[2023-06-20] MEDS: SODIUM CHLORIDE 0.9% 1,000 ML IV SCH (04:58)
[2023-06-20] MEDS: APIXABAN 5 MG TAB PO SCH ×2 (09:17→19:48)
[2023-06-20] MEDS: predniSONE 10 MG TAB PO SCH (09:17)
[2023-06-20] MEDS: METOPROLOL TARTRATE 50 MG TAB PO SCH ×2 (09:18→19:48)
[2023-06-20] MEDS: FUROSEMIDE 10 MG/ML 2 ML VIAL IV SCH (09:19)
[2023-06-20] MEDS ORDERED: LACTATED RINGERS 1,000 ML IV ONE (10:10)
[2023-06-20] MEDS ORDERED: LIDOCAINE 1% INJ 10MG/ML (20 ML MDV) ONE (10:15)
[2023-06-20] MEDS ORDERED: PROPOFOL 10 MG/ML 20 ML VIAL IV ONE (10:15)
[2023-06-20 10:36] VITALS: TEMP 98
[2023-06-20 12:26] LABS: HCT 38.3 % (34.0-46.0); HGB 12.6 gm/dL (11.4-16.0); MCH 35.2 pg (25.0-35.0); MCV 106.6 fL (80.0-100.0); Macrocytosis Moderate; Mean Platelet Volume 7.5; Platelet Count 235 k/uL (150-450); RBC 3.59 m/uL (3.80-5.40); RDW 13.3 % (11.5-15.5); WBC 11.4 k/uL (3.8-10.6)
[2023-06-20] MEDS: LOSARTAN 25 MG TAB PO SCH (12:32)
[2023-06-20] MEDS: AMIODARONE 200 MG TAB PO SCH ×2 (12:32→19:49)
[2023-06-20 12:44] LABS: ALT 63 U/L (4-34); AST 37 U/L (14-36); African American GFR (CKD) 88 (>60 ml/min/1.73 sqM); Albumin 3.3 g/dL (3.5-5.0); Alkaline Phosphatase 64 U/L (38-126); Anion Gap 10 mmol/L; Blood Urea Nitrogen 25 mg/dL (7-17); Calcium 8.8 mg/dL (8.4-10.2); Carbon Dioxide 26 mmol/L (22-30); Chloride 100 mmol/L (98-107); Glucose 111 mg/dL (74-99); Non-African American GFR(CKD) 76 (>60 ml/min/1.73 sqM); Potassium 3.3 mmol/L (3.5-5.1); Sodium 136 mmol/L (137-145); Total Bilirubin 0.5 mg/dL (0.2-1.3); Total Protein 6.1 g/dL (6.3-8.2)
--- NOTE | 2023-06-20 14:32 | P.PN ---
Subjective Progress Note Date: 06/20/23 Principal diagnosis: Shortness of breath. I am seeing this patient in consultation today 06/18/2023 in the emergency room after the patient presented yesterday afternoon with the chief complaint of heart palpitations with associated lightheadedness and shortness of breath. She was found to be in atrial fibrillation with RVR. Also, likely has an exacerbation of her known COPD. Patient is a 73-year-old female with past medical history significant for hypertension, COPD, and his remote ex-smoker. Her PCP is delores Houston out of Dr. Montenegro's office. She normally m anages her COPD with a combination of Trelegy inhaler and albuterol rescue inhaler. Over the last 3 weeks, she's been struggling with URI-like symptoms, such as nasal congestion, postnasal drip, and cough with pale yellow sputum. Denies any fevers or chest pain. States that she thinks her granddaughter gave her a cold. She originally visited an urgent care center when this started, and then recently followed up with her PCP. She received a burst taper prednisone and doxycycline outpatient. She did have some initial improvement, but then started to experience chest palpitations that are accompanied with dizziness/lightheaded and shortness of breath. Denies any syncope. Denies any chest pain, lower extremity swelling. On arrival to the emergency room, the patient was found to be in atrial fibrillation with rapid ventricular rate. She was started on Cardizem which is currently infusing at 5 mg per hour. She is also been started on heparin per protocol. Chest x-ray on arrival demonstrated subtle haziness of the right lower lung which may represent developing airspace disease versus atelectasis. D-dimer was elevated. Patient did have a follow-up chest CTA which did not show any pulmonary embolism. There was mild cardiomegaly with evidence of right heart insufficiency. Moderate right and small left pleural effusions. Bibasilar pulmonary opacities likely atelectasis with possible superimposed infectious process at the right lung base. There is moderate to severe centrilobular pulmonary emphysema. Patient is currently sitting up in bed, on room air, in no acute distress. Heart rhythm remains atrial fibrillation with more controlled rate of about 100-110 bpm while at rest. Blood pressure is normotensive. Afebrile. CBC was unremarkable without any leukocytosis. BMP with sodium of 131, potassium 4, chloride 97, serum bicarb 22, BUN 15, creatinine 0.62, glucose 133. Troponins are elevated 3. NT proBNP was 2890. Procalcitonin level low at 0.07. Negative for influenza, RSV, COVID-19. Patient was started on a combination of azithromycin and Rocephin in the ER. Also receiving a combination of DuoNeb's, Symbicort inhaler, and IV Solu-Medrol. Patient is being admitted to the cardiac stepdown unit once bed available. Progress note dated 06/19/2023. 73-year-old female who was seen in room 382. She was initially seen in the emergency department, for complaints of heart palpitations, lightheadedness, and shortness of breath. She was found to have atrial fibrillation with RVR. The patient does have a history of hypertension, and COPD. Typically, she is on an albuterol inhaler, and Trelegy. Currently, the patient is on room air. She is receiving IV heparin. We will DC her updrafts, and DC her Symbicort. She will use her home inhalers instead. Laboratory data today includes only a PTT of 55.2. Progress note dated 06/20/2023. 73-year-old female seen in consultation 2 days ago. She seen today in room 382. The patient is scheduled for a transesophageal echocardiogram, and cardioversion today. She's on room air. She has a basic IV. Currently, white count 11.4, hemoglobin 12.6, hematocrit 38.3, with a normal platelet count of 235,000. Sodium 136, potassium 3.3, chlorides 100, CO2 26, BUN 25, and creatinine 0.79. Objective - Vital Signs Vital signs: Vital Signs Temp 98 F 06/20/23 10:45 Pulse 114 H 06/20/23 12:31 Resp 17 06/20/23 11:28 BP 107/70 06/20/23 12:31 Pulse Ox 94 L 06/20/23 11:28 FiO2 Intake & Output 06/19/23 06/20/23 06/20/23 18:59 06:59 18:59 Intake Total 118 221.555 290 Balance 118 221.555 290 Weight 63.5 kg Intake: IV 50 Intake, IV Titration 221.555 Amount Heparin Sod,Pork in 0.45% 221.555 NaCl 25,000 unit In 0.45 % NaCl 1 250ml.bag @ 12 UNITS/KG/HR 8.546 mls/hr IV .Q24H [facility] Rx#: [id number] Oral 118 240 Other: Voiding Method Bedside Commode Bedside Commode Bedside Commode # Voids 3 - Exam No acute distress, oriented 3. Currently on room air. Saturations are 94%. HEENT examination is grossly unremarkable. Mucous membranes are moist. No oral lesions. Neck supple. Full range of motion. No adenopathy thyromegaly or neck vein distention. Cardiovascular examination reveals an irregular rhythm and rate. S1-S2 normal. No S3 or S4. No discernible murmur noted. Heart rate is 114 bpm. The patient is clearly in atrial fibrillation. Lungs reveal mostly clear breath sounds. Breath sounds are equal bilaterally. Minimal scattered rhonchi and crackles are appreciated. No wheezes. Room air saturation 94 %. Abdomen soft bowel sounds are heard. No masses or tenderness. Extremities are intact. No cyanosis clubbing or edema. Skin is without rash or lesion. Neurologic examination is brief but nonfocal. - Labs CBC & Chem 7: 06/20/23 11:52 06/20/23 11:52 Labs: Abnormal Lab Results - Last 24 Hours (Table) 06/20/23 06/20/23 Range/Units 11:52 11:52 WBC 11.4 H (3.8-10.6) k/uL RBC 3.59 L (3.80-5.40) m/uL MCV 106.6 H (80.0-100.0) fL MCH 35.2 H (25.0-35.0) pg Sodium 136 L (137-145) mmol/L Potassium 3.3 L (3.5-5.1) mmol/L BUN 25 H (7-17) mg/dL Glucose 111 H (74-99) mg/dL AST 37 H (14-36) U/L ALT 63 H (4-34) U/L Total Protein 6.1 L (6.3-8.2) g/dL Albumin 3.3 L (3.5-5.0) g/dL Microbiology - Last 24 Hours (Table) 06/17/23 17:05 Blood Culture - Preliminary Blood 06/17/23 17:20 Blood Culture - Preliminary Blood Assessment and Plan Assessment: New-onset atrial fibrillation with rapid ventricular response. Shortness of breath, multifactorial, in part related to COPD exacerbation, mild CHF, and atrial fibrillation with RVR. Benign essential hypertension. History of COPD, from previous tobacco use. Plan: Plan dated 06/19/2023. The patient is seen in room 382. The patient continues on IV heparin. The patient will use her home inhalers, rather than what we've ordered here in the hospital. Respiratory status is stable. Her room air saturation is 95%. The patient has atrial fibrillation with RVR, with a heart rate of 134 bpm. We will continue to follow, and make recommendations along the way. Overall prognosis remains guarded. She seems relatively stable today. Labs, x-rays, and medications are reviewed. Plan dated 06/20/2023. The patient is seen in room 382. The patient scheduled for a transesophageal echocardiogram, and possible cardioversion today. From the pulmonary standpoint, she is doing well. She's on room air. Saturations are 94%. She is using her home bronchodilators. Labs, x-rays, medications are reviewed. We will continue to follow the patient, and make recommendations where appropriate. Prognosis is guarded. Time with Patient: Less than 30
[2023-06-20] MEDS ORDERED: POTASSIUM CHLORIDE ER 20 MEQ TAB.ER PO STA (16:00)
--- NOTE | 2023-06-20 16:04 | P.PN ---
Subjective Progress Note Date: 06/20/23 (delayed charting seen at 1215) Patient is a t 73-year-old female with COPD , hypertension, and hyperlipidemia who presented to the ED with compliants of palpitations. For the last 2 weeks she has been battling a COPD exacerbation due to a upper respiratory tract infection, she just completed a prednisone taper and 10 day course of doxycycline. In the emergency department she underwent an extensive evaluation. Her initial heart rate was 170 and blood pressure 60/32. EKG confirmed atrial fibrillation with RVR. Chest x-ray demonstrated subtle right lower lobe opacities. CTA of the chest showed bilateral pulmonary opacities likely atelectasis, moderate to severe emphysema, and mild cardiomegaly with evidence of right heart insufficiency. Initial labs were remarkable for d-dimer of 2.92, sodium 132, BNP 2890. Insulin to A/P/RSV/COVID-19 testing was negative. Patient was subsequently started on IV fluids and a Cardizem bolus. She was then initiated on a heparin drip. New-onset A. fib. She was admitted with consultation to cardiology and pulmonary. She was transitioned from Cardizem to amiodarone. A cardiogram was completed and showed ejection fraction of 25-30% with mild to moderate tricuspid regurgitation. Her troponins remained negative. She continued to have atrial fibrillation with rapid ventricular spots the patient underwent cardioversion on 06/20/23. Unfortunately cardioversion was unsuccessful. Patient seen and examined at bedside. She continues to have some palpitation. She denies any overt chest discomfort. She has significant dyspnea when she attempts to move. She is frustrated that the cardioversion was unsuccessful. Vital signs reviewed General: nontoxic, no distress, appears at stated age Cardiovascular: S1-S2 regular and tachycardic, no murmur, positive posterior tibial pulse bilateral, Lungs: CTA bilateral, no rhonchi, no rales , no accessory muscle use Abdominal: soft, nontender to palpation, no guarding, no appreciable organomegaly Ext: no gross muscle atrophy, 1+ pitting edema bilateral lower extremities, no contractures Neuro: CN II-XI grossly intact, no focal neuro deficits Psych: Alert, oriented, appropriate affect Assessment/Plan: Newly discovered atrial fibrillation with rapid ventricular response Newly discovered systolic cardiomyopathy with acute exacerbation, ejection fraction 25-30% Transaminitis, improving, likely secondary congestion Hyponatremia, suspect secondary to fluid overload, improving Acute exacerbation of COPD -Eliquis 5 mg by mouth twice daily -Patient has been transitioned from IV amiodarone to amiodarone 400 mg by mouth twice daily, metoprolol 50 mg twice daily -Add Cozaar 12.5 mg daily for guideline-directed medical therapy, repeat K+ in AM and consider adding aldactone. -Pulmonary review: Continue with bronchodilators transitioned to oral prednisone -Prednisone 30 mg daily - Completed 2 doses of IV lasix. Hypokalemia -Potassium chloride 40 mEq by mouth 1 Imaging: None New Data Review: Labs reviewed from today include CBC and CMP which are remarkable for white blood cell count 11.4, sodium 136, potassium 3.3, AST 37, ALT 63 DVT prophylaxis: Discussed with: Anticipated discharge date: Anticipated discharge place: This dictation was prepared using [employer] voice recognition software. Though every attempt is made to correct errors during dictation some may still exist. Objective - Vital Signs Vital signs: Vital Signs Temp 98 F 06/20/23 10:45 Pulse 114 H 06/20/23 12:31 Resp 17 06/20/23 11:28 BP 107/59 06/20/23 14:30 Pulse Ox 94 L 06/20/23 11:28 FiO2 Intake & Output 06/19/23 06/20/23 06/20/23 18:59 06:59 18:59 Intake Total 118 221.555 290 Balance 118 221.555 290 Weight 63.5 kg Intake: IV 50 Intake, IV Titration 221.555 Amount Heparin Sod,Pork in 0.45% 221.555 NaCl 25,000 unit In 0.45 % NaCl 1 250ml.bag @ 12 UNITS/KG/HR 8.546 mls/hr IV .Q24H [facility] Rx#: [id number] Oral 118 240 Other: Voiding Method Bedside Commode Bedside Commode Bedside Commode # Voids 3 - Labs CBC & Chem 7: 06/20/23 11:52 06/20/23 11:52 Labs: Abnormal Lab Results - Last 24 Hours (Table) 06/20/23 06/20/23 Range/Units 11:52 11:52 WBC 11.4 H (3.8-10.6) k/uL RBC 3.59 L (3.80-5.40) m/uL MCV 106.6 H (80.0-100.0) fL MCH 35.2 H (25.0-35.0) pg Sodium 136 L (137-145) mmol/L Potassium 3.3 L (3.5-5.1) mmol/L BUN 25 H (7-17) mg/dL Glucose 111 H (74-99) mg/dL AST 37 H (14-36) U/L ALT 63 H (4-34) U/L Total Protein 6.1 L (6.3-8.2) g/dL Albumin 3.3 L (3.5-5.0) g/dL Microbiology - Last 24 Hours (Table) 06/17/23 17:05 Blood Culture - Preliminary Blood 06/17/23 17:20 Blood Culture - Preliminary Blood
--- NOTE | 2023-06-21 00:20 | CE ---
CARDIAC ELECTROPHYSIOLOGY REPORT INDICATION: Persistent atrial fibrillation with rapid ventricular rate. PROCEDURE: Transesophageal echocardiogram. INDICATION: To rule out intracardiac thrombus prior to cardioversion. PROCEDURE NOTE: After obtaining informed consent, transesophageal echocardiogram was performed in left lateral position using an Omniplane probe. Local and IV sedation were obtained by the electrical engineering technologist. FINDINGS: 1. There is no intracardiac thrombus within the left atrial appendage, left atrium, right atrium, left ventricle, or right ventricle. 2. There is severe biatrial enlargement. 3. Right ventricle has normal size and function. 4. Left ventricle appears mildly dilated, shows severe diffuse global hypokinesis with severe LV dysfunction with an ejection fraction 25% to 30%. 5. Mitral valve is anatomically normal. There is moderate central mitral regurgitation noted. 6. There is mild tricuspid regurgitation noted. 7. The aortic valve is a 3-leaflet valve. There is no evidence of aortic stenosis or regurgitation. Aortic root appears normal. 8. There is no evidence of [id number] shunt by color-flow Doppler or [id number]-[id number] shunt by agitated saline contrast study. CONCLUSIONS: 1. Severe LV systolic dysfunction. 2. No evidence of intracardiac thrombus. 3. Moderate central mitral regurgitation. PLAN: The patient will undergo cardioversion. CARDIOVERSION NOTE: INDICATION: Persistent atrial fibrillation with poorly controlled ventricular rate. PROCEDURE: After obtaining informed consent, electrical cardioversion was attempted with synchronized DC current escalating from 125 to 150 to 200. After 3 shocks, the patient did not convert to sinus rhythm. She was adequately anticoagulated with Eliquis and intracardiac thrombus was ruled out by transesophageal echo. We will continue on current medications and try to add rhythm suppressive agent and attempted cardioversion again down the road. MMODL / IJN: [id number] /
[2023-06-21] MEDS: SODIUM CHLORIDE 0.9% 1,000 ML IV SCH (06:59)
[2023-06-21] MEDS: METOPROLOL TARTRATE 50 MG TAB PO SCH (08:09)
[2023-06-21] MEDS: APIXABAN 5 MG TAB PO SCH (08:09)
[2023-06-21] MEDS: predniSONE 10 MG TAB PO SCH (08:09)
[2023-06-21] MEDS: AMIODARONE 200 MG TAB PO SCH (08:09)
[2023-06-21] MEDS: LOSARTAN 25 MG TAB PO SCH (08:09)
[2023-06-21 08:36] LABS: HCT 41.8 % (34.0-46.0); HGB 13.6 gm/dL (11.4-16.0); MCH 34.9 pg (25.0-35.0); MCHC 32.6 g/dL (31.0-37.0); Macrocytosis Moderate; Mean Platelet Volume 8.4; Platelet Count 261 k/uL (150-450); RBC 3.91 m/uL (3.80-5.40); RDW 13.9 % (11.5-15.5); WBC 13.5 k/uL (3.8-10.6)
[2023-06-21 09:03] LABS: African American GFR (CKD) >90 (>60 ml/min/1.73 sqM); Anion Gap 9 mmol/L; Blood Urea Nitrogen 22 mg/dL (7-17); Calcium 9.3 mg/dL (8.4-10.2); Carbon Dioxide 27 mmol/L (22-30); Chloride 101 mmol/L (98-107); Glucose 108 mg/dL (74-99); Magnesium 2.1 mg/dL (1.6-2.3); Non-African American GFR(CKD) 85 (>60 ml/min/1.73 sqM); Potassium 3.8 mmol/L (3.5-5.1); Sodium 137 mmol/L (137-145)
[2023-06-21 11:54] VITALS: BP 117/84; PULSE 103; RESP 15
[2023-06-21] MEDS ORDERED: FUROSEMIDE 20 MG TAB PO SCH (12:15)
[2023-06-21 12:17] VITALS: BMI 27.2
--- NOTE | 2023-06-21 12:55 | P.PN ---
Subjective HISTORY OF PRESENT ILLNESS: Patient continues to be in atrial fibrillation with rapid ventricular response. Her echo cardiac exam showed an EF of 20%. She appears mildly volume overloaded with elevated JVD and 1+ pitting edema in bilateral lower extremity Synopsis: 73-year-old with hypertension and severe COPD presented to the hospital with also of palpitations and chest heaviness. On admission she was found to be in atrial fibrillation with rapid ventricular response. Pulse 125, heart rate 108/77, 06/21/2023 Patient is status post attempted cardioversion 3 with unsuccessful conversion t o sinus mechanism. Oral amiodarone was added to patient's medication regimen. Telemetry this morning reveals atrial fibrillation with a heart rate in the 90- 110s. Blood pressure stable at 108/68. PHYSICAL EXAM: VITAL SIGNS: Reviewed. GENERAL: Well-developed in no acute distress. NECK: Supple. No JVD or thyromegaly LUNGS: Respirations even and unlabored. Lungs essentially clear to auscultation bilaterally. HEART: Irregular rate and rhythm. S1 and S2 heard. EXTREMITIES: Normal range of motion. No clubbing or cyanosis. Peripheral pulses intact. No lower extremity edema ASSESSMENT: Persistent atrial fibrillation with rapid ventricular response. 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 Signing provider agrees with the documented findings, assessment, and plan of care. Objective - Vital Signs Vital signs: Vital Signs Temp 98 F 06/20/23 10:45 Pulse 106 H 06/21/23 08:04 Resp 17 06/21/23 08:04 BP 108/68 06/21/23 08:04 Pulse Ox 96 06/21/23 08:04 FiO2 Intake & Output 06/20/23 06/21/23 06/21/23 18:59 06:59 18:59 Intake Total 650 360 Output Total 1250 Balance -600 360 Intake: IV 50 Oral 600 360 Output: Urine 1250 Other: Voiding Method Bedside Commode Bedside Commode Bedside Commode # Voids 2 - Labs CBC & Chem 7: 06/21/23 08:04 06/21/23 08:04 Labs: Abnormal Lab Results - Last 24 Hours (Table) 06/20/23 06/20/23 06/21/23 Range/Units 11:52 11:52 08:04 WBC 11.4 H 13.5 H (3.8-10.6) k/uL RBC 3.59 L (3.80-5.40) m/uL MCV 106.6 H 107.0 H (80.0-100.0) fL MCH 35.2 H (25.0-35.0) pg Sodium 136 L (137-145) mmol/L Potassium 3.3 L (3.5-5.1) mmol/L BUN 25 H (7-17) mg/dL Glucose 111 H (74-99) mg/dL AST 37 H (14-36) U/L ALT 63 H (4-34) U/L Total Protein 6.1 L (6.3-8.2) g/dL Albumin 3.3 L (3.5-5.0) g/dL 06/21/23 Range/Units 08:04 WBC (3.8-10.6) k/uL RBC (3.80-5.40) m/uL MCV (80.0-100.0) fL MCH (25.0-35.0) pg Sodium (137-145) mmol/L Potassium (3.5-5.1) mmol/L BUN 22 H (7-17) mg/dL Glucose 108 H (74-99) mg/dL AST (14-36) U/L ALT (4-34) U/L Total Protein (6.3-8.2) g/dL Albumin (3.5-5.0) g/dL Microbiology - Last 24 Hours (Table) 06/17/23 17:05 Blood Culture - Preliminary Blood 06/17/23 17:20 Blood Culture - Preliminary Blood
--- NOTE | 2023-06-21 14:27 | P.DS ---
Providers Date of admission: 06/17/23 16:45 Expected date of discharge: 06/21/23 Attending physician: Georges Sánchez MD Consults: 06/17/23 16:41 Consult Physician Routine Consulting Provider: [facility] Consult Reason/Comments: new onset afib Do you want consulting provider notified?: Yes 06/17/23 18:19 Consult Physician Routine Consulting Provider: Anderson Mix Consult Reason/Comments: COPD/Emphysema and bilat pleural effusions, mild exacerbation Do you want consulting provider notified?: Yes, Notify in am Primary care physician: McPherson Hospital Course: Discharge Diagnosis: Newly discovered atrial fibrillation with rapid ventricular response Newly discovered systolic cardiomyopathy with acute exacerbation, ejection fra ction 25-30% Transaminitis, improving, likely secondary congestion Hyponatremia, suspect secondary to fluid overload, improving Acute exacerbation of COPD Hypokalemia Hospital Course: Patient is a t 73-year-old female with COPD , hypertension, and hyperlipidemia who presented to the ED with complaints of palpitations. For the last 2 weeks she has been battling a COPD exacerbation due to a upper respiratory tract infection, she just completed a prednisone taper and 10 day course of doxycycline. In the emergency department she underwent an extensive evaluation. Her initial heart rate was 170 and blood pressure 60/32. EKG confirmed atrial fibrillation with RVR. Chest x-ray demonstrated subtle right lower lobe opacities. CTA of the chest showed bilateral pulmonary opacities likely atelectasis, moderate to severe emphysema, and mild cardiomegaly with evidence of right heart insufficiency. Initial labs were remarkable for d-dimer of 2.92, sodium 132, BNP 2890. Influenza A/B/RSV/COVID-19 testing was negative. Patient was subsequently started on IV fluids and a Cardizem bolus. She was then initiated on a heparin drip for New-onset A. fib. She was admitted with consultation to cardiology and pulmonary. She was transitioned from Cardizem to amiodarone. An echocardiogram was completed and showed ejection fraction of 25- 30% with mild to moderate tricuspid regurgitation. Her troponins remained negative. She continued to have atrial fibrillation with rapid ventricular response. She patient underwent cardioversion on 06/20/23. Unfortunately cardioversion was unsuccessful. Her medications were adjusted and she had improved rate control. Patient was able to ambulate in the hallways and required frequent breaks, but was otherwise asymptomatic. Her HR maxed at 130s wiht ambulation. She felt comfortable and cardio cleared her for discharge home. Follow-up: Dr. Ring in 1 week, Dr. Dumas in 1-2 days. Medications include amiodarone 400 mg twice daily, Lasix 20 mg daily, metoprolol 50 mg twice daily, Eliquis 5 mg twice daily, Cozaar 12.5 mg daily Patient seen and examined at bedside.Doing well, tolerated walking with short breaks. Wants to go home. Vital signs reviewed and stable. General: nontoxic, no distress, appears at stated age Cardiovascular: S1S2 irreg, no murmur, positive posterior tibial pulse bilateral, Lungs: CTA bilateral, no rhonchi, no rales , no accessory muscle use Abdominal: soft, nontender to palpation, no guarding, no appreciable organomegaly Ext: no gross muscle atrophy, no edema b/l lower extremities, no contractures Neuro: CN II-XI grossly intact, no focal neuro deficits Psych: Alert, oriented, appropriate affect A total of 32 minutes of time were spent preparing this complex discharge summary. Patient was discharged on 06/21/23. This dictation was prepared using [employer] voice recognition software. Though every attempt is made to correct errors during dictation some may still exist. Patient Condition at Discharge: Serious Plan - Discharge Summary Discharge Rx Participant: No New Discharge Prescriptions: New Furosemide [Lasix] 20 mg PO DAILY #90 tab Metoprolol Tartrate [Lopressor] 50 mg PO BID #180 tab Amiodarone [Cordarone] 400 mg PO BID #180 tab Apixaban [Eliquis] 5 mg PO BID 30 Days #60 tab Losartan [Cozaar] 12.5 mg PO DAILY #90 tab predniSONE [Deltasone] 20 mg PO DAILY #2 tab Continue Albuterol Sulfate [Albuterol Sulfate Hfa] 1 - 2 puff PO RT-Q4H PRN PRN Reason: Shortness Of Breath Fluticasone/Umeclidin/Vilanter [Trelegy Ellipta 100-62.5-25] 1 puff INHALATION RT-DAILY Discontinued Lisinopril-Hctz 20-12.5 mg [Zestoretic 20-12.5] 1 tab PO DAILY Discharge Medication List Albuterol Sulfate [Albuterol Sulfate Hfa] 1 - 2 puff PO RT-Q4H PRN 06/17/23 [History] Fluticasone/Umeclidin/Vilanter [Trelegy Ellipta 100-62.5-25] 1 puff INHALATION RT-DAILY 06/17/23 [History] Apixaban [Eliquis] 5 mg PO BID 30 Days #60 tab 06/18/23 [Rx] Amiodarone [Cordarone] 400 mg PO BID #180 tab 06/21/23 [Rx] Furosemide [Lasix] 20 mg PO DAILY #90 tab 06/21/23 [Rx] Losartan [Cozaar] 12.5 mg PO DAILY #90 tab 06/21/23 [Rx] Metoprolol Tartrate [Lopressor] 50 mg PO BID #180 tab 06/21/23 [Rx] predniSONE [Deltasone] 20 mg PO DAILY #2 tab 06/21/23 [Rx] Follow up Appointment(s)/Referral(s): Dusty Dumas DO [Primary Care Provider] - 1-2 days Claudy Ring MD [STAFF PHYSICIAN] - 1 Week Activity/Diet/Wound Care/Special Instructions: Activity: As tolerated Diet: [employer] Special Instructions: Return with worsening Shortness of breath, palpitations, light headedness, dizziness. Take your weight daily. Call the [facility] if you gain more than 3 pounds in 1 day or 5 pounds in 3 days. Discharge Disposition: HOME SELF-CARE
--- NOTE | 2023-06-21 15:02 | P.PN ---
Subjective Progress Note Date: 06/21/23 I am seeing this patient in consultation today 06/18/2023 in the emergency room after the patient presented yesterday afternoon with the chief complaint of heart palpitations with associated lightheadedness and shortness of breath. She was found to be in atrial fibrillation with RVR. Also, likely has an exacerbation of her known COPD. Patient is a 73-year-old female with past medical history significant for hypertension, COPD, and his remote ex-smoker. Her PCP is delores Houston out of Dr. Montenegro's office. She normally manages her COPD with a combination of Trelegy inhaler and albuterol rescue inhaler. Over the last 3 weeks, she's been struggling with URI-like symptoms, such as nasal congestion, postnasal drip, and cough with pale yellow sputum. Denies any fevers or chest pain. States that she thinks her granddaughter gave her a cold. She originally visited an urgent care center when this started, and then recently followed up with her PCP. She received a burst taper prednisone and doxycycline outpatient. She did have some initial improvement, but then started to experience chest palpitations that are accompanied with dizziness/lightheaded and shortness of breath. Denies any syncope. Denies any chest pain, lower extremity swelling. On arrival to the emergency room, the patient was found to be in atrial fibrillation with rapid ventricular rate. She was started on Cardizem which is currently infusing at 5 mg per hour. She is also been started on heparin per protocol. Chest x-ray on arrival demonstrated subtle haziness of the right lower lung which may represent developing airspace disease versus atelectasis. D-dimer was elevated. Patient did have a follow-up chest CTA which did not show any pulmonary embolism. There was mild cardiomegaly with evidence of right heart insufficiency. Moderate right and small left pleural effusions. Bibasilar pulmonary opacities likely atelectasis with possible superimposed infectious process at the right lung base. There is moderate to severe centrilobular pulmonary emphysema. Patient is currently sitting up in bed, on room air, in no acute distress. Heart rhythm remains atrial fibrillation with more controlled rate of about 100-110 bpm while at rest. Blood pressure is normotensive. Afebrile. CBC was unremarkable without any leukocytosis. BMP with sodium of 131, potassium 4, chloride 97, serum bicarb 22, BUN 15, creatinine 0.62, glucose 133. Troponins are elevated 3. NT proBNP was 2890. Procalcitonin level low at 0.07. Negative for influenza, RSV, COVID-19. Patient was started on a combination of azithromycin and Rocephin in the ER. Also receiving a combination of DuoNeb's, Symbicort inhaler, and IV Solu-Medrol. Patient is being admitted to the cardiac stepdown unit once bed available. Progress note dated 06/19/2023. 73-year-old female who was seen in room 382. She was initially seen in the emergency department, for complaints of heart palpitations, lightheadedness, and shortness of breath. She was found to have atrial fibrillation with RVR. The patient does have a history of hypertension, and COPD. Typically, she is on an albuterol inhaler, and Trelegy. Currently, the patient is on room air. She is receiving IV heparin. We will DC her updrafts, and DC her Symbicort. She will use her home inhalers instead. Laboratory data today includes only a PTT of 55.2. Progress note dated 06/20/2023. 73-year-old female seen in consultation 2 days ago. She seen today in room 382. The patient is scheduled for a transesophageal echocardiogram, and cardioversion today. She's on room air. She has a basic IV. Currently, white count 11.4, hemoglobin 12.6, hematocrit 38.3, with a normal platelet count of 235,000. Sodium 136, potassium 3.3, chlorides 100, CO2 26, BUN 25, and creatinine 0.79. The patient is seen today 06/21/2023 in follow-up on the selective care unit. She is currently sitting up in bed. Awake and alert in no acute distress. Maintaining good O2 saturations in the 90s on room air. She did undergo cardioversion that was not successful yesterday. She remains in atrial fibrillation. Cultures revealed no growth. White count 13.5. Hemoglobin 13.6. Sodium 137. Potassium 3.8. Bicarb 27. BUN 22. Creatinine 0.72. Glucose 108. He is continued on anticoagulation the form of Eliquis. She remains on bronchodilators and a prednisone taper. Objective - Vital Signs Vital signs: Vital Signs Temp 98 F 06/20/23 10:45 Pulse 103 H 06/21/23 11:33 Resp 15 06/21/23 11:33 BP 117/84 06/21/23 11:33 Pulse Ox 94 L 06/21/23 11:33 FiO2 Intake & Output 06/20/23 06/21/23 06/21/23 18:59 06:59 18:59 Intake Total 650 480 Output Total 1250 Balance -600 480 Weight 71.95 kg Intake: IV 50 Oral 600 480 Output: Urine 1250 Other: Voiding Method Bedside Commode Bedside Commode Bedside Commode # Voids 2 2 - Exam GENERAL EXAM: Alert, pleasant 73-year-old female, sitting up in bed, on room air, comfortable in no apparent distress. HEAD: Normocephalic. EYES: Normal reaction of pupils, equal size. NOSE: Clear with pink turbinates. THROAT: No erythema or exudates. NECK: No masses, no JVD. CHEST: No chest wall deformity. LUNGS: Equal air entry with no crackles, wheeze, rhonchi or dullness. CVS: S1 and S2 normal with no audible murmur, irregular rhythm. ABDOMEN: No hepatosplenomegaly, normal bowel sounds, no guarding or rigidity. SPINE: No scoliosis or deformity SKIN: No rashes CENTRAL NERVOUS SYSTEM: No focal deficits, tone is normal in all 4 extremities. EXTREMITIES: There is no peripheral edema. No clubbing, no cyanosis. Peripheral pulses are intact. - Labs CBC & Chem 7: 06/21/23 08:04 06/21/23 08:04 Labs: Abnormal Lab Results - Last 24 Hours (Table) 06/21/23 06/21/23 Range/Units 08:04 08:04 WBC 13.5 H (3.8-10.6) k/uL MCV 107.0 H (80.0-100.0) fL BUN 22 H (7-17) mg/dL Glucose 108 H (74-99) mg/dL Microbiology - Last 24 Hours (Table) 06/17/23 17:05 Blood Culture - Preliminary Blood 06/17/23 17:20 Blood Culture - Preliminary Blood Assessment and Plan Assessment: New-onset atrial fibrillation with rapid ventricular response. Failed cardioversion. Anticoagulated with Eliquis. Shortness of breath, multifactorial, in part related to COPD exacerbation, mild CHF, and atrial fibrillation with RVR. Benign essential hypertension. History of COPD, from previous tobacco use. Plan: The patient was seen and evaluated Stable and on room air Anticoagulated with Eliquis Home once cleared by cardiology Continue her home pulmonary medications, prednisone taper I have personally seen and examined the patient, performed the documentation and the assessment and plan as written. Number of minutes spent on the visit: 10.
== END 2023-06-21 15:27 | disposition home or self-care (01) | DRG 308 ==
LOC: EC 12:51 → 3SCARD 16:45
PROVIDERS: ADMIT Student in an Organized Health Care Education/Training Program; ATTEND Student in an Organized Health Care Education/Training Program
PROC: 5A2204Z Restoration of Cardiac Rhythm, Single (ICD-10-PCS; principal; 2023-06-20 07:30)
PROC: B246ZZ4 Ultrasonography of Right and Left Heart, Transesophageal (ICD-10-PCS; principal; 2023-06-20 07:30)
DX: I48.19 Other persistent atrial fibrillation (principal); I50.21 Acute systolic (congestive) heart failure; E87.1 Hypo-osmolality and hyponatremia; J44.1 Chronic obstructive pulmonary disease with (acute) exacerbation; J44.0 Chronic obstructive pulmonary disease with (acute) lower respiratory infection; J98.11 Atelectasis; I42.8 Other cardiomyopathies; E87.8 Other disorders of electrolyte and fluid balance, not elsewhere classified; J43.2 Centrilobular emphysema; I11.0 Hypertensive heart disease with heart failure; J22 Unspecified acute lower respiratory infection; I07.1 Rheumatic tricuspid insufficiency; E78.5 Hyperlipidemia, unspecified; E87.6 Hypokalemia; I25.10 Atherosclerotic heart disease of native coronary artery without angina pectoris; R74.01 Elevation of levels of liver transaminase levels; D75.89 Other specified diseases of blood and blood-forming organs; Z79.51 Long term (current) use of inhaled steroids; Z79.899 Other long term (current) drug therapy; Z87.891 Personal history of nicotine dependence
CPT/HCPCS: 36415; 71045; 71275; 80048; 80053; 80061; 81003; 83735; 83880; 84145; 84443; 84484; 85025; 85027; 85379; 85610; 85730; 87040; 87636; 92960; 93005; 93306; 93312; 93320; 93325; 94640; 94760; 96365; 96366; 96368; 96375; 99291

== ENCOUNTER 2023-08-17 03:03 | Inpatient (IN) | payer MEDICARE ==
[2023-08-17] MEDS ORDERED: IPRATROPIUM-ALBUTEROL 3 ML NEB INHALATION STA (03:07)
[2023-08-17] MEDS ORDERED: LORazepam 2 MG/ML INJ IV STA (03:11)
[2023-08-17] MEDS ORDERED: MAGNESIUM SULFATE-D5W PMX 1 GM in DEXTROSE/WATER 1 100ML.BAG IVPB STA (03:25)
[2023-08-17] MEDS ORDERED: methylPREDNISolone SOD SUCCI 125 MG/2 ML VIAL IV STA (03:25)
[2023-08-17 03:35] LABS: Allen Test Performed? Yes
[2023-08-17 03:38] LABS: Basophils # (A) 0.1 k/uL (0-0.2); Basophils % (A) 1 %; Eosinophils # (A) 0.1 k/uL (0-0.7); Eosinophils % (A) 1 %; HCT 47.2 % (34.0-46.0); HGB 15.3 gm/dL (11.4-16.0); Lymphocytes % (A) 11 %; MCH 34.8 pg (25.0-35.0); MCHC 32.4 g/dL (31.0-37.0); MCV 107.5 fL (80.0-100.0); Macrocytosis Moderate; Mean Platelet Volume 9.5; Monocytes # (A) 0.7 k/uL (0-1.0); Monocytes % (A) 8 %; Neutrophils # (A) 6.7 k/uL (1.3-7.7); Neutrophils % (A) 75 %; Platelet Count 184 k/uL (150-450); RBC 4.39 m/uL (3.80-5.40); RDW 13.9 % (11.5-15.5); WBC 8.9 k/uL (3.8-10.6)
[2023-08-17 03:41] LABS: ABG Base Excess -0.3 mmol/L; ABG HCO3 27 mmol/L (21-25); ABG Oxygen Saturation 98.1 % (94-97); ABG PCO2 60 mmHg (35-45); ABG PH 7.26 (7.35-7.45); ABG PO2 137 mmHg (83-108); ABG TCO2 29 mmol/L (19-24)
[2023-08-17 03:42] LABS: ALT 29 U/L (4-34); African American GFR (CKD) >90 (>60 ml/min/1.73 sqM); Albumin 4.3 g/dL (3.5-5.0); Anion Gap 8 mmol/L; Blood Urea Nitrogen 13 mg/dL (7-17); Calcium 8.8 mg/dL (8.4-10.2); Carbon Dioxide 23 mmol/L (22-30); Chloride 103 mmol/L (98-107); Glucose 223 mg/dL (74-99); Non-African American GFR(CKD) 89 (>60 ml/min/1.73 sqM); Sodium 134 mmol/L (137-145); Total Bilirubin 0.8 mg/dL (0.2-1.3); Total Protein 7.8 g/dL (6.3-8.2)
[2023-08-17 03:50] LABS: AST 51 U/L (14-36); Alkaline Phosphatase 94 U/L (38-126); Magnesium 1.8 mg/dL (1.6-2.3); NT-Pro-B-Type Natriuretic Pept 5220 pg/mL; Potassium 4.3 mmol/L (3.5-5.1)
--- NOTE | 2023-08-17 03:51 | ED ---
SOB HPI - General Chief Complaint: Shortness of Breath Stated Complaint: MONCHO Time Seen by Provider: 08/17/23 03:10 Source: patient Mode of arrival: EMS Limitations: no limitations - History of Present Illness Initial Comments: 73-year-old female with past medical history of COPD, CHF, A-fib who presents to the emergency department with shortness of breath. States she has been short of breath for the past couple of days. She has been using albuterol updrafts without any improvement in her symptoms. Upon EMS arrival patient had extremely labored breathing with oxygen saturations in the 70s. They attempted to place her on CPAP however she did not tolerate it. Patient has respiratory rate of 40. Denies fevers, chills or cough. No chest pain. Denies any lower extremity swelling. She was given a DuoNeb breathing treatment en route to the hospital. Patient has been taking her diuretic as directed without missed doses. No other alleviating, precipitating or modifying factors - Related Data Home Medications Medication Instructions Recorded Confirmed Fluticasone/Umeclidin/Vilanter 1 puff INHALATION RT-DAILY 06/17/23 06/17/23 [Trelegy Ellipta 100-62.5-25] Albuterol Inhaler [Ventolin Hfa 1 - 2 puff INHALATION RT-Q4H PRN 08/17/23 08/17/23 Inhaler] Amiodarone [Cordarone] 200 mg PO DAILY 08/17/23 08/17/23 Warfarin [Coumadin] 5 mg PO DAILY 08/17/23 08/17/23 Previous Rx's Medication Instructions Recorded Furosemide [Lasix] 20 mg PO DAILY #90 tab 06/21/23 Losartan [Cozaar] 12.5 mg PO DAILY #90 tab 06/21/23 Metoprolol Tartrate [Lopressor] 50 mg PO BID #180 tab 06/21/23 Allergies Allergy/AdvReac Type Severity Reaction Status Date / Time No Known Allergies Allergy Verified 08/17/23 07:43 Review of Systems ROS Statement: Those systems with pertinent positive or pertinent negative responses have been documented in the HPI. ROS Other: All systems not noted in ROS Statement are negative. Past Medical History Past Medical History: COPD, Hypertension History of Any Multi-Drug Resistant Organisms: None Reported Past Surgical History: Section, Hysterectomy Additional Past Surgical History / Comment(s): Eye Past Anesthesia/Blood Transfusion Reactions: No Reported Reaction Past Psychological History: No Psychological Hx Reported Smoking Status: Former smoker Past Alcohol Use History: Occasional Past Drug Use History: Marijuana General Exam Limitations: altered mental status General appearance: in distress Head exam: Present: atraumatic, normocephalic, normal inspection Eye exam: Present: normal appearance, PERRL, EOMI. Absent: scleral icterus, conjunctival injection, periorbital swelling ENT exam: Present: normal exam, mucous membranes moist Neck exam: Present: normal inspection. Absent: tenderness, meningismus, lymphadenopathy Respiratory exam: Present: wheezes, decreased breath sounds, other (Extremely diminished breath sounds) Cardiovascular Exam: Present: normal rhythm, tachycardia GI/Abdominal exam: Present: soft, normal bowel sounds. Absent: distended, tenderness, guarding, rebound, rigid Extremities exam: Present: normal inspection Back exam: Present: normal inspection Psychiatric exam: Present: anxious Skin exam: Present: diaphoretic Course Vital Signs 08/17/23 08/17/23 08/17/23 03:05 03:11 03:13 Temperature 98 F Pulse Rate 113 H 114 H 114 H Respiratory 40 H 42 H Rate Blood Pressure 197/174 212/118 O2 Sat by Pulse 95 95 Oximetry Fraction of Inspired Oxygen (FIO2) 08/17/23 08/17/23 08/17/23 03:18 03:20 03:23 Temperature Pulse Rate 124 H 114 H Respiratory 42 H 32 H Rate Blood Pressure 192/160 156/143 O2 Sat by Pulse 93 L 99 Oximetry Fraction of 80 Inspired Oxygen (FIO2) 08/17/23 08/17/23 08/17/23 03:25 03:45 03:47 Temperature Pulse Rate 113 H 102 H Respiratory 31 H Rate Blood Pressure 157/83 O2 Sat by Pulse 98 Oximetry Fraction of 50 Inspired Oxygen (FIO2) 08/17/23 08/17/23 08/17/23 03:58 04:00 04:30 Temperature Pulse Rate 96 85 Respiratory 28 H 28 H 22 Rate Blood Pressure 143/73 110/60 O2 Sat by Pulse 98 99 Oximetry Fraction of Inspired Oxygen (FIO2) 08/17/23 08/17/23 05:52 06:00 Temperature Pulse Rate 72 77 Respiratory 18 18 Rate Blood Pressure 120/57 117/56 O2 Sat by Pulse 99 97 Oximetry Fraction of Inspired Oxygen (FIO2) Procedures - ABG Interpretation Ph: 7.25 PCO2: 60 PO2: 137 Bicarbonate: 26.8 Interpretation: respiratory acidosis Medical Decision Making - Medical Decision Making Was pt. sent in by a medical professional or institution (CASEY Zamora, VENTILATION MECHANIC, urgent care, hospital, or correction...) When possible be specific @ -No Did you speak to anyone other than the patient for history (EMS, parent, family, police, friend...)? What history was obtained from this source @ -Spoke with EMS Did you review nursing and triage notes (agree or disagree)? Why? @ -I reviewed and agree with nursing and triage notes Were old charts reviewed (outside hosp., previous admission, EMS record, old EKG, old radiological studies, urgent care reports/EKG's, correction records)? Report findings @ -I reviewed patient's last echo which revealed an EF of 20% Differential Diagnosis (chest pain, altered mental status, abdominal pain women, abdominal pain men, vaginal bleeding, weakness, fever, dyspnea, syncope, headache, dizziness, GI bleed, back pain, seizure, CVA, palpatations, mental health, musculoskeletal)? @ -Differential Dyspnea: Coronary syndrome, arrhythmia, tamponade, asthma, COPD, pulmonary embolism, pneumonia, pneumothorax, pulmonary effusion, anaphylaxis, diabetic ketoacidosis, flailed chest, pulmonary contusion, diaphragmatic rupture, anemia, neuromuscular, this is not meant to be an all-inclusive list. EKG interpreted by me (3pts min.). @ -Yes and demonstrates sinus tachycardia with a rate of 108. MD interval 185. QRS 118. QTc is 415. No acute ST segment elevations or depressions X-rays interpreted by me (1pt min.). @ -Yes which demonstrates interstitial edema CT interpreted by me (1pt min.). @ -None done U/S interpreted by me (1pt. min.). @ -None done What testing was considered but not performed or refused? (CT, X-rays, U/S, labs)? Why? @ -None What meds were considered but not given or refused? Why? @ -None Did you discuss the management of the patient with other professionals (professionals i.e. CASEY Zamora, VENTILATION MECHANIC, lab, RT, psych nurse, long term care social worker, air traffic control supervisor, teacher, special forces warrant officer, rn case mgr)? Give summary @ -Spoke with Dr. Hernandez who will admit the patient Was smoking cessation discussed for >3mins.? @ -No Was critical care preformed (if so, how long)? @ -Yes, 40 minutes for BiPAP management Were there social determinants of health that impacted care today? How? (Homelessness, low income, unemployed, alcoholism, drug addiction, transportation, low edu. Level, literacy, decrease access to med. care, group home, rehab)? @ -No Was there de-escalation of care discussed even if they declined (Discuss DNR or withdrawal of care, Hospice)? DNR status @ -Yes, patient is DNR/DNI. I did confirm this with the patient's who is in agreement with this decision What co-morbidities impacted this encounter? (DM, HTN, Smoking, COPD, CAD, Cancer, CVA, ARF, Chemo, Hep., AIDS, mental health diagnosis, sleep apnea, morbid obesity)? @ -CHF, COPD, A-fib Was patient admitted / discharged? Hospital course, mention meds given and route, prescriptions, significant lab abnormalities, going to OR and other pertinent info. @ -Upon arrival patient was placed into room 2. Thorough history and physical exam was performed. Patient has significant increased work of breathing. She is on a nonrebreather. Patient was given 2 DuoNebs breathing treatments. Due to continued significant work of breathing we did recommend BiPAP. Patient requesting something for anxiety. She was given 2 mg of Ativan and placed on the BiPAP. Laboratory studies are conducted. Chest x-ray was performed. Laboratory studies are reviewed. Patient positive for RSV. BNP elevated. Chest x-ray performed which demonstrates some interstitial edema. Patient was given a 40 mg dose of Lasix. She was additionally given 1 g of magnesium and 125 Solu-Medrol. Due to patient's significant work of breathing I did recommend admission for which she was agreeable. At this time the patient has markedly improved and therefore stable for 3 S. I spoke with Dr. Hernandez who will be the admitting physician with pulmonology on consult Undiagnosed new problem with uncertain prognosis? @ -yes Drug Therapy requiring intensive monitoring for toxicity (Heparin, Nitro, Insulin, Cardizem)? @ -No Were any procedures done? @ -No Diagnosis/symptom? @ -Acute hypoxic respiratory failure, acute BiPAP dependent respiratory failure, acute exacerbation of COPD, acute exacerbation of CHF, rsv bronchitis Acute, or Chronic, or Acute on Chronic? @ -Acute Uncomplicated (without systemic symptoms) or Complicated (systemic symptoms)? @ -Complicated Side effects of treatment? @ -No Exacerbation, Progression, or Severe Exacerbation? @ -No Poses a threat to life or bodily function? How? (Chest pain, USA, SC, pneumonia, PE, COPD, DKA, ARF, appy, cholecystitis, CVA, Diverticulitis, Homicidal, Suicidal, threat to staff... and all critical care pts) @ -Yes patient did arrive in respiratory distress with hypoxia - Lab Data Result diagrams: 08/17/23 03:27 08/17/23 03:27 Lab Results 08/17/23 08/17/23 08/17/23 Range/Units 03:27 03: 03:27 WBC 8.9 (3.8-10.6) k/uL RBC 4.39 (3.80-5.40) m/uL Hgb 15.3 (11.4-16.0) gm/dL Hct 47.2 H (34.0-46.0) % MCV 107.5 H (80.0-100.0) fL MCH 34.8 (25.0-35.0) pg MCHC 32.4 (31.0-37.0) g/dL RDW 13.9 (11.5-15.5) % Plt Count 184 (150-450) k/uL MPV 9.5 Neutrophils % 75 % Lymphocytes % 11 % Monocytes % 8 % Eosinophils % 1 % Basophils % 1 % Neutrophils # 6.7 (1.3-7.7) k/uL Lymphocytes # 1.0 (1.0-4.8) k/uL Monocytes # 0.7 (0-1.0) k/uL Eosinophils # 0.1 (0-0.7) k/uL Basophils # 0.1 (0-0.2) k/uL Macrocytosis Moderate PT 40.3 H (10.0-12.5) sec INR 4.1 H (<1.2) APTT 22.6 (22.0-30.0) sec Sample Site ABG pH (7.35-7.45) ABG pCO2 (35-45) mmHg ABG pO2 (83-108) mmHg ABG HCO3 (21-25) mmol/L ABG Total CO2 (19-24) mmol/L ABG O2 Saturation (94-97) % ABG Base Excess mmol/L Bradnon Test FiO2 % Sodium 134 L (137-145) mmol/L Potassium 4.3 (3.5-5.1) mmol/L Chloride 103 (98-107) mmol/L Carbon Dioxide 23 (22-30) mmol/L Anion Gap 8 mmol/L BUN 13 (7-17) mg/dL Creatinine 0.66 (0.52-1.04) mg/dL Est GFR (CKD-EPI)AfAm >90 (>60 ml/min/1.73 sqM) Est GFR (CKD-EPI)NonAf 89 (>60 ml/min/1.73 sqM) Glucose 223 H (74-99) mg/dL Plasma Lactic Acid Luis (0.7-2.0) mmol/L Calcium 8.8 (8.4-10.2) mg/dL Magnesium 1.8 (1.6-2.3) mg/dL Total Bilirubin 0.8 (0.2-1.3) mg/dL AST 51 H (14-36) U/L ALT 29 (4-34) U/L Alkaline Phosphatase 94 (38-126) U/L Troponin I (0.000-0.034) ng/mL NT-Pro-B Natriuret Pep 5220 pg/mL Total Protein 7.8 (6.3-8.2) g/dL Albumin 4.3 (3.5-5.0) g/dL Influenza Type A (PCR) (Not Detectd) Influenza Type B (PCR) (Not Detectd) RSV (PCR) (Not Detectd) SARS-CoV-2 (PCR) (Not Detectd) 08/17/23 08/17/23 08/17/23 Range/Units 03:27 03:27 03:27 WBC (3.8-10.6) k/uL RBC (3.80-5.40) m/uL Hgb (11.4-16.0) gm/dL Hct (34.0-46.0) % MCV (80.0-100.0) fL MCH (25.0-35.0) pg MCHC (31.0-37.0) g/dL RDW (11.5-15.5) % Plt Count (150-450) k/uL MPV Neutrophils % % Lymphocytes % % Monocytes % % Eosinophils % % Basophils % % Neutrophils # (1.3-7.7) k/uL Lymphocytes # (1.0-4.8) k/uL Monocytes # (0-1.0) k/uL Eosinophils # (0-0.7) k/uL Basophils # (0-0.2) k/uL Macrocytosis PT (10.0-12.5) sec INR (<1.2) APTT (22.0-30.0) sec Sample Site L radial ABG pH 7.26 L (7.35-7.45) ABG pCO2 60 H (35-45) mmHg ABG pO2 137 H (83-108) mmHg ABG HCO3 27 H (21-25) mmol/L ABG Total CO2 29 H (19-24) mmol/L ABG O2 Saturation 98.1 H (94-97) % ABG Base Excess -0.3 mmol/L Brandon Test Yes FiO2 50 % Sodium (137-145) mmol/L Potassium (3.5-5.1) mmol/L Chloride (98-107) mmol/L Carbon Dioxide (22-30) mmol/L Anion Gap mmol/L BUN (7-17) mg/dL Creatinine (0.52-1.04) mg/dL Est GFR (CKD-EPI)AfAm (>60 ml/min/1.73 sqM) Est GFR (CKD-EPI)NonAf (>60 ml/min/1.73 sqM) Glucose (74-99) mg/dL Plasma Lactic Acid Luis 1.8 (0.7-2.0) mmol/L Calcium (8.4-10.2) mg/dL Magnesium (1.6-2.3) mg/dL Total Bilirubin (0.2-1.3) mg/dL AST (14-36) U/L ALT (4-34) U/L Alkaline Phosphatase (38-126) U/L Troponin I <0.012 (0.000-0.034) ng/mL NT-Pro-B Natriuret Pep pg/mL Total Protein (6.3-8.2) g/dL Albumin (3.5-5.0) g/dL Influenza Type A (PCR) (Not Detectd) Influenza Type B (PCR) (Not Detectd) RSV (PCR) (Not Detectd) SARS-CoV-2 (PCR) (Not Detectd) 08/17/23 Range/Units 03:50 WBC (3.8-10.6) k/uL RBC (3.80-5.40) m/uL Hgb (11.4-16.0) gm/dL Hct (34.0-46.0) % MCV (80.0-100.0) fL MCH (25.0-35.0) pg MCHC (31.0-37.0) g/dL RDW (11.5-15.5) % Plt Count (150-450) k/uL MPV Neutrophils % % Lymphocytes % % Monocytes % % Eosinophils % % Basophils % % Neutrophils # (1.3-7.7) k/uL Lymphocytes # (1.0-4.8) k/uL Monocytes # (0-1.0) k/uL Eosinophils # (0-0.7) k/uL Basophils # (0-0.2) k/uL Macrocytosis PT (10.0-12.5) sec INR (<1.2) APTT (22.0-30.0) sec Sample Site ABG pH (7.35-7.45) ABG pCO2 (35-45) mmHg ABG pO2 (83-108) mmHg ABG HCO3 (21-25) mmol/L ABG Total CO2 (19-24) mmol/L ABG O2 Saturation (94-97) % ABG Base Excess mmol/L Brandon Test FiO2 % Sodium (137-145) mmol/L Potassium (3.5-5.1) mmol/L Chloride (98-107) mmol/L Carbon Dioxide (22-30) mmol/L Anion Gap mmol/L BUN (7-17) mg/dL Creatinine (0.52-1.04) mg/dL Est GFR (CKD-EPI)AfAm (>60 ml/min/1.73 sqM) Est GFR (CKD-EPI)NonAf (>60 ml/min/1.73 sqM) Glucose (74-99) mg/dL Plasma Lactic Acid Luis (0.7-2.0) mmol/L Calcium (8.4-10.2) mg/dL Magnesium (1.6-2.3) mg/dL Total Bilirubin (0.2-1.3) mg/dL AST (14-36) U/L ALT (4-34) U/L Alkaline Phosphatase (38-126) U/L Troponin I (0.000-0.034) ng/mL NT-Pro-B Natriuret Pep pg/mL Total Protein (6.3-8.2) g/dL Albumin (3.5-5.0) g/dL Influenza Type A (PCR) Not Detected (Not Detectd) Influenza Type B (PCR) Not Detected (Not Detectd) RSV (PCR) Detected A (Not Detectd) SARS-CoV-2 (PCR) Not Detected (Not Detectd) Disposition Clinical Impression: COPD (chronic obstructive pulmonary disease), Pulmonary edema, RSV (respiratory syncytial virus infection), BiPAP (biphasic positive airway pressure) dependence Disposition: ADMITTED IP TO THIS [facility] Condition: Serious Is patient prescribed a controlled substance at d/c from ED?: No Time of Disposition: 04:47 Decision to Admit Reason: Admit from EC Decision Date: 08/17/23 Decision Time: 04:47
--- NOTE | 2023-08-17 04:27 | XR ---
EXAM: XR Chest, 1 View CLINICAL HISTORY: ITS.REASON XR Reason: sob TECHNIQUE: Frontal view of the chest. COMPARISON: 2 views of the chest June 06, 2023 IMPRESSION: 1. Diffuse interstitial changes in the lungs. Findings may relate to interstitial pulmonary edema given that this is more apparent than on prior study June 06, 2023.
[2023-08-17 04:29] LABS: INR 4.1 (<1.2); Partial Thromboplastin Time 22.6 sec (22.0-30.0); Prothrombin Time 40.3 sec (10.0-12.5)
[2023-08-17] MEDS ORDERED: FUROSEMIDE 10 MG/ML 4 ML VIAL IV STA (04:39)
[2023-08-17] MEDS ORDERED: NALOXONE 0.4 MG/ML 1 ML VIAL IV PRN (04:48)
--- NOTE | 2023-08-17 06:20 | P.HPIM ---
History of Present Illness H&P Date: 08/17/23 Chief Complaint: Shortness of breath 73-year-old female with atrial fibrillation on Eliquis, hypertension COPD not on home oxygen Patient coming into the hospital for evaluation due to sudden onset shortness of breath, she does report 2 to 3-day history of not feeling well having symptoms of upper respiratory infection with sore throat coughing fevers and chills. She denies any hemoptysis denies any chest pain she denies any recent travel or hospital stay denies any history of blood clots denies any known sick contacts. She became very hypoxic and short of breath today for which notified EMS and was brought into the hospital, she is currently on BiPAP and provides limited history due to BiPAP dependency. Patient denies tobacco smoking illicit drugs or heavy alcohol review of systems Pertinent positives as noted in HPI. All other systems were reviewed and are negative on exam Constitutional: No acute distress, BiPAP dependent Eyes: Anicteric sclerae, moist conjunctiva, Pupils equal round reactive to light ENMT: NC/AT Oropharynx clear, no erythema, or exudates Neck: Supple, no masses, or JVD No carotid bruits No thyromegaly Lungs: Decreased breath sounds with prolonged expiratory phase and wheezing Clear to percussion Patient using accessory muscles of respiration Cardiovascular: Heart regular in rate and rhythm, No murmurs, gallops, or rubs No peripheral edema Abdominal: Soft Nontender, no guarding, rebound or rigidity Abdomen moving with respiration Normoactive bowel sounds No hepatomegaly, No splenomegaly No palpable mass No abdominal wall hernia noted Extremities: No digital cyanosis No clubbing Pedal pulses intact and symmetrical Radial pulses intact and symmetrical No calf tenderness Psychiatric: Alert and oriented to person, place Neuro Muscles Strength 4/5 in all 4 extremities Sensation to light touch grossly present throughout Cranial nerves II-XII grossly intact Lymphatics: no palpable cervical or supraclavicular lymph nodes Past Medical History Past Medical History: COPD, Hypertension History of Any Multi-Drug Resistant Organisms: None Reported Past Surgical History: Section, Hysterectomy Additional Past Surgical History / Comment(s): Eye Past Anesthesia/Blood Transfusion Reactions: No Reported Reaction Past Psychological History: No Psychological Hx Reported Smoking Status: Former smoker Past Alcohol Use History: Occasional Past Drug Use History: Marijuana Medications and Allergies Home Medications Medication Instructions Recorded Confirmed Type Albuterol Sulfate [Albuterol 1 - 2 puff PO RT-Q4H PRN 06/17/23 06/17/23 History Sulfate Hfa] Fluticasone/Umeclidin/Vilanter 1 puff INHALATION RT-DAILY 06/17/23 06/17/23 History [Trelegy Ellipta 100-62.5-25] Apixaban [Eliquis] 5 mg PO BID 30 Days #60 tab 06/18/23 Rx Amiodarone [Cordarone] 400 mg PO BID #180 tab 06/21/23 Rx Furosemide [Lasix] 20 mg PO DAILY #90 tab 06/21/23 Rx Losartan [Cozaar] 12.5 mg PO DAILY #90 tab 06/21/23 Rx Metoprolol Tartrate [Lopressor] 50 mg PO BID #180 tab 06/21/23 Rx predniSONE [Deltasone] 20 mg PO DAILY #2 tab 06/21/23 Rx Allergies Allergy/AdvReac Type Severity Reaction Status Date / Time No Known Allergies Allergy Verified 06/17/23 17:11 Physical Exam Vitals: Vital Signs Temp Pulse Resp BP Pulse Ox FiO2 08/17/23 05:52 72 18 120/57 99 08/17/23 04:30 85 22 110/60 99 08/17/23 04:00 96 28 H 143/73 98 08/17/23 03:58 28 H 08/17/23 03:47 50 08/17/23 03:45 102 H 31 H 157/83 98 08/17/23 03:25 113 H 08/17/23 03:23 114 H 32 H 156/143 99 08/17/23 03:20 80 08/17/23 03:18 124 H 42 H 192/160 93 L 08/17/23 03:13 114 H 42 H 212/118 95 08/17/23 03:11 114 H 08/17/23 03:05 98 F 113 H 40 H 197/174 95 Intake and Output 08/16/23 08/16/23 08/17/23 14:59 22:59 06:59 Other: Weight 54.431 kg Results CBC & Chem 7: 08/17/23 03:27 08/17/23 03:27 Labs: Abnormal Lab Results - Last 24 Hours (Table) 08/17/23 08/17/23 08/17/23 Range/Units 03:27 03:27 03:27 Hct 47.2 H (34.0-46.0) % MCV 107.5 H (80.0-100.0) fL PT 40.3 H (10.0-12.5) sec INR 4.1 H (<1.2) ABG pH (7.35-7.45) ABG pCO2 (35-45) mmHg ABG pO2 (83-108) mmHg ABG HCO3 (21-25) mmol/L ABG Total CO2 (19-24) mmol/L ABG O2 Saturation (94-97) % Sodium 134 L (137-145) mmol/L Glucose 223 H (74-99) mg/dL AST 51 H (14-36) U/L RSV (PCR) (Not Detectd) 08/17/23 08/17/23 Range/Units 03:27 03:50 Hct (34.0-46.0) % MCV (80.0-100.0) fL PT (10.0-12.5) sec INR (<1.2) ABG pH 7.26 L (7.35-7.45) ABG pCO2 60 H (35-45) mmHg ABG pO2 137 H (83-108) mmHg ABG HCO3 27 H (21-25) mmol/L ABG Total CO2 29 H (19-24) mmol/L ABG O2 Saturation 98.1 H (94-97) % Sodium (137-145) mmol/L Glucose (74-99) mg/dL AST (14-36) U/L RSV (PCR) Detected A (Not Detectd) Assessment and Plan Assessment: 73-year-old female with A-fib, COPD not on home oxygen coming in with 3-day history of upper respiratory infection and today with sudden onset shortness of breath I discussed case with ED doctor accepted the admission for acute hypoxic respiratory failure secondary to COPD exacerbation secondary to RSV infection with anticipated length of stay more than 2 midnights Acute hypoxic and hypercapnic respiratory failure Acute viral pneumonia with RSV positive COPD exacerbation Supplemental oxygen as needed Systemic IV steroids with Solu-Medrol 60 mg IV every 6 hours DuoNebs every 4 hours and as needed Acute respiratory viral panel positive for RSV negative for influenza and COVID Supportive care Tylenol for fever ABG showing pH of 7.2 6/60/137 Paroxysmal A-fib on Eliquis Continue with Eliquis Continue with amiodarone home medication Troponin is negative EKG showing sinus tachycardia no acute ST changes Chest x-ray showed diffuse interstitial disease Hypertension controlled Continue with losartan and metoprolol home medications DVT prophylaxis on Eliquis for A-fib CODE STATUS DNR Blood work reviewed Hemoglobin 15.3 white count 8.9 Sodium 134 potassium 4.3 BUN 13 creatinine 0.6 renal function unremarkable
[2023-08-17] MEDS ORDERED: IPRATROPIUM-ALBUTEROL 3 ML NEB INHALATION SCH (08:00)
[2023-08-17] MEDS ORDERED: APIXABAN 5 MG TAB PO SCH (09:00)
[2023-08-17] MEDS ORDERED: AMIODARONE 200 MG TAB PO SCH (09:00)
[2023-08-17] MEDS: methylPREDNISolone SOD SUCCI 125 MG/2 ML VIAL IV SCH ×3 (10:04→21:49)
[2023-08-17] MEDS: AMIODARONE 200 MG TAB PO SCH (10:05)
[2023-08-17] MEDS: METOPROLOL TARTRATE 50 MG TAB PO SCH ×2 (10:05→21:49)
[2023-08-17] MEDS: LOSARTAN 25 MG TAB PO SCH (10:05)
[2023-08-17] MEDS: IPRATROPIUM-ALBUTEROL 3 ML NEB INHALATION SCH ×4 (10:09→22:03)
[2023-08-17] MEDS ORDERED: methylPREDNISolone SOD SUCCI 125 MG/2 ML VIAL IV SCH (11:00)
[2023-08-17] MEDS ORDERED: ALBUTEROL NEBULIZED 2.5 MG/3 ML INHALATION PRN (12:13)
--- NOTE | 2023-08-17 15:23 | P.CNPUL ---
History of Present Illness Consult date: 08/17/23 Requesting physician: Kameron Hernandez Reason for consult: dyspnea, hypoxemia, abnormal CXR/CT Chief complaint: Shortness of breath, cough, congestion History of present illness: This is a pleasant 73-year-old female patient with a known history of atrial fibrillation, anticoagulated with warfarin, chronic obstructive pulmonary disease, former smoker however quit 20 years ago, hypertension. She presented to the emergency room early this morning with a 3-day history of increasing shortness of breath, cough and congestion. Home updraft treatments were not improving her symptoms. She was found to have O2 saturations in the 70s by EMS and was placed on BiPAP. Chest x-ray reveals diffuse interstitial changes. Suspect interstitial pulmonary edema. White count 8.9. Hemoglobin 15.3. Pl atelets 184. Sodium 134. Potassium 4.3. BUN 13. Creatinine 0.66. Glucose 223. proBNP 5020. Troponin negative x 1. Viral screen is positive for RSV. Arterial blood gases on 50% FiO2 revealed a pO2 of 137, pCO2 of 60 and a pH of 7.26. She has been initiated on DuoNeb and elations, Pulmicort and perform scintillations, Solu-Medrol. Anticoagulated with warfarin. Currently sinus tachycardia. She is seen in consultation in the emergency department. She is sitting up in the stretcher. On BiPAP 14/6 and 50% FiO2. She is awake and alert in no acute distress. She is feeling a bit better than when she first presented. Review of Systems REVIEW OF SYSTEMS: CONSTITUTIONAL: Denies any recent significant weight loss or weight gain. EYES: Denies change in vision. EARS, NOSE, MOUTH, THROAT: Denies headaches, denies sore throat. CARDIOVASCULAR: Denies chest pain, palpitations or syncopal episodes. RESPIRATORY: Positive for shortness of breath, cough, congestion no hemoptysis. GASTROINTESTINAL: Denies change in appetite, denies abdominal pain GENITOURINARY: Denies hematuria, denies infections. MUSKULOSKELETAL: Denies pain, denies swelling. INTEGUMENTARY: Denies rash, denies eczema. NEUROLOGICAL: Denies recent memory loss, no recent seizure activity. PSYCHIATRIC: Denies anxiety, denies depression. HEMATOLOGIC/LYMPHATIC: Denies anemia, denies enlarged lymph nodes. Past Medical History Past Medical History: Atrial Fibrillation, Heart Failure, COPD, Hypertension History of Any Multi-Drug Resistant Organisms: None Reported Past Surgical History: Section, Hysterectomy Additional Past Surgical History / Comment(s): Eye Past Anesthesia/Blood Transfusion Reactions: No Reported Reaction Past Psychological History: No Psychological Hx Reported Smoking Status: Former smoker Past Alcohol Use History: Occasional Past Drug Use History: Marijuana - Past Family History Mother Additional Family Medical History / Comment(s): Wegeners disease Father Family Medical History: Congestive Heart Failure (CHF) Medications and Allergies Home Medications Medication Instructions Recorded Confirmed Type Fluticasone/Umeclidin/Vilanter 1 puff INHALATION RT-DAILY 06/17/23 08/17/23 History [Trelegy Ellipta 100-62.5-25] Furosemide [Lasix] 20 mg PO DAILY #90 tab 06/21/23 08/17/23 Rx Losartan [Cozaar] 12.5 mg PO DAILY #90 tab 06/21/23 08/17/23 Rx Metoprolol Tartrate [Lopressor] 50 mg PO BID #180 tab 06/21/23 08/17/23 Rx Albuterol Inhaler [Ventolin Hfa 1 - 2 puff INHALATION RT-Q4H PRN 08/17/23 08/17/23 History Inhaler] Amiodarone [Cordarone] 200 mg PO DAILY 08/17/23 08/17/23 History Warfarin [Coumadin] 5 mg PO DAILY 08/17/23 08/17/23 History Allergies Allergy/AdvReac Type Severity Reaction Status Date / Time No Known Allergies Allergy Verified 08/17/23 07:43 Physical Exam Vitals: Vital Signs Temp Pulse Pulse Resp BP BP Pulse Ox 08/17/23 13:16 72 22 131/70 100 08/17/23 12:23 63 08/17/23 12:12 60 08/17/23 10:21 72 08/17/23 10:10 71 08/17/23 10:00 98 F 75 19 127/58 96 08/17/23 06:00 77 18 117/56 97 08/17/23 05:52 72 18 120/57 99 08/17/23 04:30 85 22 110/60 99 08/17/23 04:00 96 28 H 143/73 98 08/17/23 03:58 28 H 08/17/23 03:47 08/17/23 03:45 102 H 31 H 157/83 98 08/17/23 03:25 113 H 08/17/23 03:23 114 H 32 H 156/143 99 08/17/23 03:20 08/17/23 03:18 124 H 42 H 192/160 93 L 08/17/23 03:13 114 H 42 H 212/118 95 08/17/23 03:11 114 H 08/17/23 03:05 98 F 113 H 40 H 197/174 95 FiO2 08/17/23 13:16 08/17/23 12:23 08/17/23 12:12 35 08/17/23 10:21 08/17/23 10:10 35 08/17/23 10:00 08/17/23 06:00 08/17/23 05:52 08/17/23 04:30 08/17/23 04:00 08/17/23 03:58 08/17/23 03:47 50 08/17/23 03:45 08/17/23 03:25 08/17/23 03:23 08/17/23 03:20 80 08/17/23 03:18 08/17/23 03:13 08/17/23 03:11 08/17/23 03:05 Intake and Output 08/17/23 08/17/23 08/17/23 06:59 14:59 22:59 Other: Weight 54.431 kg 54.431 kg GENERAL EXAM: Alert, very pleasant 73-year-old female, on BiPAP 14/6 and 50% FiO2, fairly comfortable in no apparent distress. HEAD: Normocephalic. EYES: Normal reaction of pupils, equal size. NOSE: Clear with pink turbinates. THROAT: No erythema or exudates. NECK: No masses, no JVD. CHEST: No chest wall deformity. LUNGS: Equal air entry with crackles in the bilateral bases. CVS: S1 and S2 normal with no audible murmur, regular rhythm. ABDOMEN: No hepatosplenomegaly, normal bowel sounds, no guarding or rigidity. SPINE: No scoliosis or deformity SKIN: No rashes CENTRAL NERVOUS SYSTEM: No focal deficits, tone is normal in all 4 extremities. EXTREMITIES: There is no peripheral edema. No clubbing, no cyanosis. Peripheral pulses are intact. Results - Laboratory Findings CBC and BMP: 08/17/23 03:27 08/17/23 03:27 ABG ABG pH 7.26 (7.35-7.45) L 08/17/23 03:27 ABG pCO2 60 mmHg (35-45) H 08/17/23 03:27 ABG pO2 137 mmHg (83-108) H 08/17/23 03:27 ABG O2 Saturation 98.1 % (94-97) H 08/17/23 03:27 PT/INR, D-dimer PT 40.3 sec (10.0-12.5) H 08/17/23 03:27 INR 4.1 (<1.2) H 08/17/23 03:27 Abnormal lab findings: Abnormal Labs 08/17/23 08/17/23 08/17/23 03:27 03:27 03:27 Hct 47.2 H MCV 107.5 H PT 40.3 H INR 4.1 H ABG pH ABG pCO2 ABG pO2 ABG HCO3 ABG Total CO2 ABG O2 Saturation Sodium 134 L Glucose 223 H AST 51 H RSV (PCR) 08/17/23 08/17/23 03:27 03:50 Hct MCV PT INR ABG pH 7.26 L ABG pCO2 60 H ABG pO2 137 H ABG HCO3 27 H ABG Total CO2 29 H ABG O2 Saturation 98.1 H Sodium Glucose AST RSV (PCR) Detected A - Diagnostic Findings Chest x-ray: image reviewed Assessment and Plan Assessment: Acute hypoxemic respiratory failure secondary to systolic congestive heart failure previous echocardiogram revealed impaired left ventricular systolic function with ejection fraction of 25 to 30% Acute hypercapnic respiratory failure secondary to suspected COPD exacerbation Former smoker however quit 20 years ago History of atrial fibrillation anticoagulated with warfarin, currently in sinus rhythm Hypertension Plan: The patient was seen and evaluated Chest x-ray, labs, ABGs and medications reviewed Titrate down the FiO2 as tolerated Transition to nasal cannula once recovered Continue DuoNeb ventilations, Pulmicort and perform inhalation, steroids Check a procalcitonin Continue diuretics Anticoagulated with warfarin We will continue to follow and make further recommendations based on her cl inical status I have personally seen and examined the patient, performed the documentation and the assessment and plan as written. Number of minutes spent on the visit: 20.
[2023-08-17] MEDS ORDERED: WARFARIN 0.5 MG TAB PO ONE (18:00)
[2023-08-17 20:45] LABS: Glucose,Whole Blood 210 mg/dL (70-110)
[2023-08-17 21:12] LABS: Glucose,Whole Blood 183 mg/dL (70-110)
[2023-08-17] MEDS: FORMOTEROL FUMARATE 20 MCG/2 ML NEBU INHALATION SCH (22:04)
[2023-08-17] MEDS: BUDESONIDE 1 MG/2 ML NEBU INHALATION SCH (22:04)
[2023-08-18] MEDS: methylPREDNISolone SOD SUCCI 125 MG/2 ML VIAL IV SCH ×2 (03:47→08:51)
[2023-08-18 06:11] LABS: Glucose,Whole Blood 203 mg/dL (70-110)
[2023-08-18] MEDS ORDERED: NON FORMULARY DRUG (Fluticasone/Umeclidin/Vilanter [Trelegy Ellipta 100-62.5-25] 1 EACH Bl INHALATION SCH (08:00)
[2023-08-18] MEDS: METOPROLOL TARTRATE 50 MG TAB PO SCH ×2 (08:51→20:22)
[2023-08-18] MEDS: LOSARTAN 25 MG TAB PO SCH (08:51)
[2023-08-18] MEDS: AMIODARONE 200 MG TAB PO SCH (08:51)
[2023-08-18 09:22] LABS: Basophils % (A) 0 %; Eosinophils % (A) 0 %; HGB 14.3 gm/dL (11.4-16.0); Lymphocytes # (A) 0.5 k/uL (1.0-4.8); Lymphocytes % (A) 8 %; MCH 34.3 pg (25.0-35.0); MCHC 32.4 g/dL (31.0-37.0); MCV 105.8 fL (80.0-100.0); Macrocytosis Moderate; Mean Platelet Volume 8.6; Monocytes # (A) 0.3 k/uL (0-1.0); Monocytes % (A) 4 %; Neutrophils # (A) 5.4 k/uL (1.3-7.7); Neutrophils % (A) 86 %; Platelet Count 194 k/uL (150-450); RBC 4.16 m/uL (3.80-5.40); RDW 14.3 % (11.5-15.5); WBC 6.2 k/uL (3.8-10.6)
[2023-08-18 09:35] LABS: INR 4.5 (<1.2); Prothrombin Time 44.3 sec (10.0-12.5)
[2023-08-18] MEDS: BUDESONIDE 1 MG/2 ML NEBU INHALATION SCH ×2 (09:39→22:11)
[2023-08-18] MEDS: IPRATROPIUM-ALBUTEROL 3 ML NEB INHALATION SCH ×4 (09:40→22:11)
[2023-08-18] MEDS: FORMOTEROL FUMARATE 20 MCG/2 ML NEBU INHALATION SCH ×2 (09:40→22:11)
[2023-08-18 09:46] LABS: African American GFR (CKD) >90 (>60 ml/min/1.73 sqM); Anion Gap 4 mmol/L; Blood Urea Nitrogen 20 mg/dL (7-17); Calcium 9.4 mg/dL (8.4-10.2); Carbon Dioxide 29 mmol/L (22-30); Chloride 99 mmol/L (98-107); Glucose 215 mg/dL (74-99); Non-African American GFR(CKD) >90 (>60 ml/min/1.73 sqM); Potassium 4.2 mmol/L (3.5-5.1); Sodium 132 mmol/L (137-145)
[2023-08-18 11:37] LABS: Glucose,Whole Blood 186 mg/dL (70-110)
[2023-08-18] MEDS ORDERED: DEXTROSE 50% SYRINGE 50 ML IVP PRN ×2 (11:46)
--- NOTE | 2023-08-18 11:47 | P.PN ---
Subjective Progress Note Date: 08/18/23 Hospital Course: 73-year-old female with a history of COPD, hypertension, atrial fibrillation on warfarin presenting with shortness of breath. On initial presentation, patient was hypertensive, tachycardic, and respiratory distress and required nonrebreather, and subsequently BiPAP. CBC was unremarkable. Patient was acidotic with pCO2 of 60, pH of 7.26, BMP unremarkable, proBNP 5000, troponin negative, procalcitonin 0.29, RSV positive. Patient started on IV steroids, and bronchodilators. Pulmonology also consulted. Subjective: Patient seen and examined at bedside. No acute events overnight. Respiratory function improved. Now on supplemental oxygen. Minimal cough. Denies any chest pain. Pertinent positives and negatives as discussed above, a complete review of systems was performed and all other systems are negative. Vitals Signs Reviewed. General: Nontoxic, no distress, appears at stated age Derm: Warm, dry Head: Atraumatic, normocephalic, symmetric Eyes: EOMI, no lid lag, anicteric sclera Mouth: No lip lesion, mucus membranes moist Cardiovascular: S1S2 reg, no murmur Lungs: Bibasilar Rales, scattered wheezing, no accessory muscle use, supplemental oxygen Abdominal: Soft, nontender to palpation, no guarding, no appreciable organomegaly Ext: No gross muscle atrophy, no edema, no contractures Neuro: CN II-XI grossly intact, no focal neuro deficits Psych: Alert, oriented, appropriate affect Data Reviewed Today: Pertinent Labs: WBC 6.2, hemoglobin 14.3, INR 4.5, sodium 132, creatinine 0.57, glucose range between 183-215 Imaging: No new imaging Assessment and Plan: Active: Acute hypoxic and hypercapnic respiratory failure Acute viral pneumonia with RSV Superimposed bacterial pneumonia Acute COPD exacerbation -Off of BiPAP, on nasal cannula, continue to wean oxygen -DuoNebs scheduled 4 times daily, continue budesonide twice daily, formoterol twice daily, albuterol as needed -Started on Medrol Dosepak per pulmonology -Also on azithromycin oral 500 daily for total of 3 doses -Pulmonology following -Continue home Lasix 20 mg daily Hypertension -Losartan 12.5 daily Atrial fibrillation Supratherapeutic INR -Continue metoprolol 50 twice daily, and 200 mg amiodarone daily -Warfarin pharmacy to dose -No active bleeding, continue to hold warfarin Hyperglycemia -Started on sliding scale insulin, A1c pending, monitor for hypoglycemia DVT ppx: Supratherapeutic INR Code status: DNR Anticipated discharge place: Pending clinical course Anticipated discharge time: Pending clinical course Objective - Vital Signs Vital signs: Vital Signs Temp 98.1 F 08/18/23 08:00 Pulse 72 08/18/23 10:04 Resp 16 08/18/23 08:00 BP 143/82 08/18/23 08:00 Pulse Ox 98 08/18/23 09:40 FiO2 35 08/17/23 12:12 Intake & Output 08/17/23 08/18/23 08/18/23 18:59 06:59 18:59 Intake Total 240 Balance 240 Weight 54.431 kg Intake: Oral 240 Other: Voiding Method Toilet Toilet # Voids 2 - Labs CBC & Chem 7: 08/18/23 08:22 08/18/23 08:22 Labs: Abnormal Lab Results - Last 24 Hours (Table) 08/17/23 08/17/23 08/17/23 Range/Units 09:25 20:44 21:10 MCV (80.0-100.0) fL Lymphocytes # (1.0-4.8) k/uL PT (10.0-12.5) sec INR (<1.2) Sodium (137-145) mmol/L BUN (7-17) mg/dL Glucose (74-99) mg/dL POC Glucose (mg/dL) 210 H 183 H (70-110) mg/dL Procalcitonin 0.29 H (0.02-0.09) ng/mL 08/18/23 08/18/23 08/18/23 Range/Units 06:09 08:22 08:22 MCV 105.8 H (80.0-100.0) fL Lymphocytes # 0.5 L (1.0-4.8) k/uL PT 44.3 H (10.0-12.5) sec INR 4.5 H (<1.2) Sodium (137-145) mmol/L BUN (7-17) mg/dL Glucose (74-99) mg/dL POC Glucose (mg/dL) 203 H (70-110) mg/dL Procalcitonin (0.02-0.09) ng/mL 08/18/23 08/18/23 Range/Units 08:22 11:32 MCV (80.0-100.0) fL Lymphocytes # (1.0-4.8) k/uL PT (10.0-12.5) sec INR (<1.2) Sodium 132 L (137-145) mmol/L BUN 20 H (7-17) mg/dL Glucose 215 H (74-99) mg/dL POC Glucose (mg/dL) 186 H (70-110) mg/dL Procalcitonin (0.02-0.09) ng/mL
[2023-08-18] MEDS: INSULIN ASPART (NovoLOG) 100 UNIT/ML VIAL SQ SCH ×3 (11:58→20:16)
[2023-08-18] MEDS: AZITHROMYCIN 500 MG TAB PO SCH (11:58)
--- NOTE | 2023-08-18 13:57 | P.PN ---
Subjective Progress Note Date: 08/18/23 This is a pleasant 73-year-old female patient with a known history of atrial fibrillation, anticoagulated with warfarin, chronic obstructive pulmonary disease, former smoker however quit 20 years ago, hypertension. She presented to the emergency room early this morning with a 3-day history of increasing shortness of breath, cough and congestion. Home updraft treatments were not improving her symptoms. She was found to have O2 saturations in the 70s by EMS and was placed on BiPAP. Chest x-ray reveals diffuse interstitial changes. Suspect interstitial pulmonary edema. White count 8.9. Hemoglobin 15.3. Platelets 184. Sodium 134. Potassium 4.3. BUN 13. Creatinine 0.66. Glucose 223. proBNP 5020. Troponin negative x 1. Viral screen is positive for RSV. Arterial blood gases on 50% FiO2 revealed a pO2 of 137, pCO2 of 60 and a pH of 7.26. She has been initiated on DuoNeb and elations, Pulmicort and perform scintillations, Solu-Medrol. Anticoagulated with warfarin. Currently sinus tachycardia. She is seen in consultation in the emergency department. She is sitting up in the stretcher. On BiPAP 14/6 and 50% FiO2. She is awake and alert in no acute distress. She is feeling a bit better than when she first presented. The patient is seen today August 18, 2023 in follow-up on the selective care unit. She is currently sitting up in bed. Awake and alert in no acute distre ss. She is maintaining O2 saturations in the 90s on 4 L/min per nasal cannula. White count 6.2. Hemoglobin 14.3. INR 4.5. Sodium 132. Potassium 4.2. Bicarb 29. BUN 20. Creatinine 0.57. Glucose 215. She remains on DuoNeb ventilations, Pulmicort and Perforomist inhalations. Warfarin adjustments per pharmacy. Objective - Vital Signs Vital signs: Vital Signs Temp 98.1 F 08/18/23 08:00 Pulse 72 08/18/23 13:12 Resp 16 08/18/23 12:00 BP 146/73 08/18/23 12:00 Pulse Ox 94 L 08/18/23 12:00 FiO2 35 08/17/23 12:12 Intake & Output 08/17/23 08/18/23 08/18/23 18:59 06:59 18:59 Intake Total 240 Balance 240 Weight 54.431 kg Intake: Oral 240 Other: Voiding Method Toilet Toilet # Voids 2 - Exam GENERAL EXAM: Alert, pleasant 73-year-old female, on 4 L nasal cannula, comfortable in no apparent distress. HEAD: Normocephalic. EYES: Normal reaction of pupils, equal size. NOSE: Clear with pink turbinates. THROAT: No erythema or exudates. NECK: No masses, no JVD. CHEST: No chest wall deformity. LUNGS: Equal air entry with crackles in the bilateral bases. CVS: S1 and S2 normal with no audible murmur, regular rhythm. ABDOMEN: No hepatosplenomegaly, normal bowel sounds, no guarding or rigidity. SPINE: No scoliosis or deformity SKIN: No rashes CENTRAL NERVOUS SYSTEM: No focal deficits, tone is normal in all 4 extremities. EXTREMITIES: There is no peripheral edema. No clubbing, no cyanosis. Peripheral pulses are intact. - Labs CBC & Chem 7: 08/18/23 08:22 08/18/23 08:22 Labs: Abnormal Lab Results - Last 24 Hours (Table) 08/17/23 08/17/23 08/17/23 Range/Units 09:25 20:44 21:10 MCV (80.0-100.0) fL Lymphocytes # (1.0-4.8) k/uL PT (10.0-12.5) sec INR (<1.2) Sodium (137-145) mmol/L BUN (7-17) mg/dL Glucose (74-99) mg/dL POC Glucose (mg/dL) 210 H 183 H (70-110) mg/dL Procalcitonin 0.29 H (0.02-0.09) ng/mL 08/18/23 08/18/23 08/18/23 Range/Units 06:09 08:22 08:22 MCV 105.8 H (80.0-100.0) fL Lymphocytes # 0.5 L (1.0-4.8) k/uL PT 44.3 H (10.0-12.5) sec INR 4.5 H (<1.2) Sodium (137-145) mmol/L BUN (7-17) mg/dL Glucose (74-99) mg/dL POC Glucose (mg/dL) 203 H (70-110) mg/dL Procalcitonin (0.02-0.09) ng/mL 08/18/23 08/18/23 Range/Units 08:22 11:32 MCV (80.0-100.0) fL Lymphocytes # (1.0-4.8) k/uL PT (10.0-12.5) sec INR (<1.2) Sodium 132 L (137-145) mmol/L BUN 20 H (7-17) mg/dL Glucose 215 H (74-99) mg/dL POC Glucose (mg/dL) 186 H (70-110) mg/dL Procalcitonin (0.02-0.09) ng/mL Assessment and Plan Assessment: Acute hypoxemic respiratory failure secondary to systolic congestive heart deangelo casey previous echocardiogram revealed impaired left ventricular systolic function with ejection fraction of 25 to 30% Acute hypercapnic respiratory failure secondary to suspected COPD exacerbation, complicated by RSV Former smoker however quit 20 years ago History of atrial fibrillation anticoagulated with warfarin, currently in sinus rhythm Hypertension Plan: The patient was seen and evaluated Labs and medications reviewed Titrate down the FiO2 as tolerated Continue bronchodilators Transition to Z-Tucker, Medrol Dosepak Probable discharge in the a.m. We will continue to follow I have personally seen and examined the patient, performed the documentation and the assessment and plan as written. Number of minutes spent on the visit: 10.
[2023-08-18 16:17] LABS: Glucose,Whole Blood 271 mg/dL (70-110)
[2023-08-18] MEDS ORDERED: WARFARIN 0.5 MG TAB PO ONE (18:00)
[2023-08-18 19:45] LABS: Glucose,Whole Blood 140 mg/dL (70-110)
[2023-08-19 06:05] LABS: Glucose,Whole Blood 144 mg/dL (70-110)
[2023-08-19] MEDS: INSULIN ASPART (NovoLOG) 100 UNIT/ML VIAL SQ SCH (06:07)
[2023-08-19] MEDS ORDERED: methylPREDNISolone 4 MG TAB TAPER PO SCH (09:00)
[2023-08-19] MEDS ORDERED: FUROSEMIDE 20 MG TAB PO SCH (09:00)
[2023-08-19] MEDS: IPRATROPIUM-ALBUTEROL 3 ML NEB INHALATION SCH (09:07)
[2023-08-19] MEDS: BUDESONIDE 1 MG/2 ML NEBU INHALATION SCH (09:08)
[2023-08-19] MEDS: FORMOTEROL FUMARATE 20 MCG/2 ML NEBU INHALATION SCH (09:08)
[2023-08-19] MEDS: AZITHROMYCIN 500 MG TAB PO SCH (09:12)
[2023-08-19] MEDS: LOSARTAN 25 MG TAB PO SCH (09:12)
[2023-08-19] MEDS: AMIODARONE 200 MG TAB PO SCH (09:12)
[2023-08-19] MEDS: METOPROLOL TARTRATE 50 MG TAB PO SCH (09:12)
[2023-08-19 09:38] LABS: INR 2.1 (<1.2); Prothrombin Time 20.7 sec (10.0-12.5)
--- NOTE | 2023-08-19 10:58 | P.DS ---
Providers Date of admission: 08/17/23 04:48 Expected date of discharge: 08/19/23 Attending physician: Kameron Hernandez MD Consults: 08/17/23 04:48 Consult Physician Urgent Consulting Provider: Anderson Mix Consult Reason/Comments: acute bipap dependant resp failure, aecopd, aechf, rsv Do you want consulting provider notified?: Yes Primary care physician: [facility] Course: Discharge Diagnosis: Acute hypoxic and hypercapnic respiratory failure Acute viral pneumonia with RSV Superimposed bacterial pneumonia Acute COPD exacerbation Atrial fibrillation Supratherapeutic INR Hyperglycemia Hypertension Hospital Course: 73-year-old female with a history of COPD, hypertension, atrial fibrillation on warfarin presenting with shortness of breath. On initial presentation, patient was hypertensive, tachycardic, and respiratory distress and required nonrebreather, and subsequently BiPAP. CBC was unremarkable. Patient was acidotic with pCO2 of 60, pH of 7.26, BMP unremarkable, proBNP 5000, troponin negative, procalcitonin 0.29, RSV positive. Patient started on IV steroids, and bronchodilators. Pulmonology also consulted. Also started on oral azithromycin . Respiratory function stable at the time of discharge. Patient on room air. INR therapeutic at the time of discharge. She has been discharged home with steroid taper and follow-up with pulmonology. Patient seen and examined at bedside. Vital signs reviewed and stable. General: Nontoxic, no distress, appears at stated age Derm: Warm, dry Head: Atraumatic, normocephalic, symmetric Eyes: EOMI, no lid lag, anicteric sclera Mouth: No lip lesion, mucus membranes moist Cardiovascular: S1S2 reg, no murmur Lungs: CTA bilateral, no rhonchi, no rales, no accessory muscle use Abdominal: Soft, nontender to palpation, no guarding, no appreciable organomegaly Ext: No gross muscle atrophy, no edema, no contractures Neuro: CN II-XI grossly intact, no focal neuro deficits Psych: Alert, oriented, appropriate affect A total of 33 minutes of time were spent preparing this complex discharge summary. Patient was discharged on 08/19/2023 at 10: 51. Patient Condition at Discharge: Serious Plan - Discharge Summary Discharge Rx Participant: Yes New Discharge Prescriptions: New Azithromycin [Zithromax] 500 mg PO DAILY #1 tab methylPREDNISolone Dose Pack [Medrol Dose Pack] 24 mg PO DAILY #15 tab Continue Furosemide [Lasix] 20 mg PO DAILY #90 tab Metoprolol Tartrate [Lopressor] 50 mg PO BID #180 tab Amiodarone [Cordarone] 200 mg PO DAILY Fluticasone/Umeclidin/Vilanter [Trelegy Ellipta 100-62.5-25] 1 puff INHALATION RT-DAILY Losartan [Cozaar] 12.5 mg PO DAILY #90 tab Albuterol Inhaler [Ventolin Hfa Inhaler] 1 - 2 puff INHALATION RT-Q4H PRN PRN Reason: Shortness Of Breath Warfarin [Coumadin] 5 mg PO DAILY Discharge Medication List Fluticasone/Umeclidin/Vilanter [Trelegy Ellipta 100-62.5-25] 1 puff INHALATION RT-DAILY 06/17/23 [History] Furosemide [Lasix] 20 mg PO DAILY #90 tab 06/21/23 [Rx] Losartan [Cozaar] 12.5 mg PO DAILY #90 tab 06/21/23 [Rx] Metoprolol Tartrate [Lopressor] 50 mg PO BID #180 tab 06/21/23 [Rx] Albuterol Inhaler [Ventolin Hfa Inhaler] 1 - 2 puff INHALATION RT-Q4H PRN 08/17/23 [History] Amiodarone [Cordarone] 200 mg PO DAILY 08/17/23 [History] Warfarin [Coumadin] 5 mg PO DAILY 08/17/23 [History] Azithromycin [Zithromax] 500 mg PO DAILY #1 tab 08/19/23 [Rx] methylPREDNISolone Dose Pack [Medrol Dose Pack] 24 mg PO DAILY #15 tab 08/19/23 [Rx] Follow up Appointment(s)/Referral(s): Anderson Mix MD [STAFF PHYSICIAN] - 1 Week Dusty Dumas DO [Primary Care Provider] - 1-2 days Patient Instructions/Handouts: Respiratory Syncytial Virus (DC), COPD (Chronic Obstructive Pulmonary Disease) (DC) Activity/Diet/Wound Care/Special Instructions: Please see PCP and pulmonology. No changes in warfarin dose. Your INR is now within range. You need repeat INR check on Sunday as discussed. Discharge Disposition: HOME SELF-CARE
[2023-08-19 11:13] VITALS: BP 115/58; PULSE 68; RESP 18; TEMP 97.6
--- NOTE | 2023-08-19 14:23 | P.PN ---
Subjective Progress Note Date: 08/19/23 Principal diagnosis: Acute hypoxic and hypercapnic respiratory failure with acute systolic congestive heart failure and acute exacerbation of COPD complicated by RSV This is a pleasant 73-year-old female patient with a known history of atrial fibrillation, anticoagulated with warfarin, chronic obstructive pulmonary disease, former smoker however quit 20 years ago, hypertension. She presented to the emergency room early this morning with a 3-day history of increasing shortness of breath, cough and congestion. Home updraft treatments were not improving her symptoms. She was found to have O2 saturations in the 70s by EMS and was placed on BiPAP. Chest x-ray reveals diffuse interstitial changes. Suspect interstitial pulmonary edema. White count 8.9. Hemoglobin 15.3. Platelets 184. Sodium 134. Potassium 4.3. BUN 13. Creatinine 0.66. Glucose 223. proBNP 5020. Troponin negative x 1. Viral screen is positive for RSV. Arterial blood gases on 50% FiO2 revealed a pO2 of 137, pCO2 of 60 and a pH of 7.26. She has been initiated on DuoNeb and elations, Pulmicort and perform scintillations, Solu-Medrol. Anticoagulated with warfarin. Currently sinus tachycardia. She is seen in consultation in the emergency department. She is sitting up in the stretcher. On BiPAP 14/6 and 50% FiO2. She is awake and alert in no acute distress. She is feeling a bit better than when she first presented. The patient is seen today August 18, 2023 in follow-up on the selective care unit. She is currently sitting up in bed. Awake and alert in no acute distress. She is maintaining O2 saturations in the 90s on 4 L/min per nasal cannula. White count 6.2. Hemoglobin 14.3. INR 4.5. Sodium 132. Potassium 4.2. Bicarb 29. BUN 20. Creatinine 0.57. Glucose 215. She remains on DuoNeb ventilations, Pulmicort and Perforomist inhalations. Warfarin adjustments per pharmacy. Reevaluate today on 08/19/2023, patient is doing well, she wants to go home, she is basically asymptomatic except for intermittent cough and wheezing feeling much better compared to how she felt when she came in, she is normally on albuterol and Trelegy Ellipta. She is also on diuretics for her congestive heart failure, doing great and again she would like to go home today. Objective - Vital Signs Vital signs: Vital Signs Temp 97.6 F 08/19/23 08:00 Pulse 71 08/19/23 09:30 Resp 18 08/19/23 08:00 BP 115/58 08/19/23 08:00 Pulse Ox 96 08/19/23 09:08 FiO2 35 08/17/23 12:12 Intake & Output 08/18/23 08/19/23 08/19/23 18:59 06:59 18:59 Intake Total 240 780 240 Balance 240 780 240 Intake: Oral 240 780 240 Other: Voiding Method Toilet Toilet Toilet # Voids 3 2 - Exam GENERAL EXAM: Alert, pleasant 73-year-old female, on room air, not in distress. HEAD: Normocephalic. EYES: Normal reaction of pupils, equal size. NOSE: Clear with pink turbinates. THROAT: No erythema or exudates. NECK: No masses, no JVD. CHEST: No chest wall deformity. LUNGS: Equal air entry . wheezing on forced expiratory maneuver. CVS: S1 and S2 normal with no audible murmur, regular rhythm. ABDOMEN: No hepatosplenomegaly, normal bowel sounds, no guarding or rigidity. CENTRAL NERVOUS SYSTEM: No focal deficits, tone is normal in all 4 extremities. EXTREMITIES: There is no peripheral edema. No clubbing, no cyanosis. Peripheral pulses are intact. Skin: No rashes - Labs CBC & Chem 7: 08/18/23 08:22 08/18/23 08:22 Labs: Abnormal Lab Results - Last 24 Hours (Table) 08/18/23 08/18/23 08/19/23 Range/Units 16:16 19:44 06:03 PT (10.0-12.5) sec INR (<1.2) POC Glucose (mg/dL) 271 H 140 H 144 H (70-110) mg/dL 08/19/23 Range/Units 08:29 PT 20.7 H (10.0-12.5) sec INR 2.1 H (<1.2) POC Glucose (mg/dL) (70-110) mg/dL Microbiology - Last 24 Hours (Table) 08/17/23 02:59 Blood Culture - Preliminary Blood 08/17/23 03:16 Blood Culture - Preliminary Blood Assessment and Plan Assessment: Pression:Acute hypoxemic respiratory failure secondary to systolic congestive heart failure previous echocardiogram revealed impaired left ventricular systolic function with ejection fraction of 25 to 30% Acute hypercapnic respiratory failure secondary to suspected COPD exacerbation, complicated by RSV Former smoker however quit 20 years ago History of atrial fibrillation anticoagulated with warfarin, currently in sinus rhythm Hypertension Recommendation: Continue Z-Tucker and Medrol Dosepak, Patient to go on her usual medication of albuterol/Ventolin and Trelegy Ellipta Will clear the patient for discharge Follow-up with me on outpatient basis in 1 to 2-week Time with Patient: Less than 30
[2023-08-19] MEDS ORDERED: WARFARIN 5 MG TAB PO ONE (18:00)
== END 2023-08-19 12:05 | disposition home or self-care (01) | DRG 193 ==
LOC: EC 03:03 → 3SCARD 04:48
PROVIDERS: ADMIT Internal Medicine; ATTEND Internal Medicine
PROC: 5A09357 Assistance with Respiratory Ventilation, Less than 24 Consecutive Hours, Continuous Positive Airway Pressure (ICD-10-PCS; principal; 2023-08-17)
DX: J12.1 Respiratory syncytial virus pneumonia (principal); I50.21 Acute systolic (congestive) heart failure; J96.01 Acute respiratory failure with hypoxia; J96.02 Acute respiratory failure with hypercapnia; J44.1 Chronic obstructive pulmonary disease with (acute) exacerbation; J44.0 Chronic obstructive pulmonary disease with (acute) lower respiratory infection; J15.9 Unspecified bacterial pneumonia; I11.0 Hypertensive heart disease with heart failure; I48.0 Paroxysmal atrial fibrillation; Z66 Do not resuscitate; R73.9 Hyperglycemia, unspecified; R79.1 Abnormal coagulation profile; F41.9 Anxiety disorder, unspecified; Z79.01 Long term (current) use of anticoagulants; Z79.51 Long term (current) use of inhaled steroids; Z79.899 Other long term (current) drug therapy; Z87.891 Personal history of nicotine dependence
CPT/HCPCS: 36415; 36600; 71045; 80048; 80053; 82805; 83036; 83605; 83735; 83880; 84145; 84484; 85025; 85610; 85730; 87040; 87636; 93005; 94640; 94660; 94760; 96365; 96375; 96376; 99291

== ENCOUNTER 2023-10-31 18:50 | Inpatient (IN) | payer MEDICARE ==
--- NOTE | 2023-10-31 19:14 | ED ---
General Adult HPI - General Chief complaint: Shortness of Breath Stated complaint: SOB congestion Time Seen by Provider: 10/31/23 19:00 Source: patient, RN notes reviewed, old records reviewed Mode of arrival: ambulatory Limitations: no limitations - History of Present Illness Initial comments: This is a 73-year-old female who presents to the emergency department complaining of difficulty breathing. Patient states she has a 40-year smoker and has quit. Patient states her breathing is gotten worse over the last couple of days she does have a slight cough but does not know if she has had any fever. Patient states she is getting tighter and tighter to the point where she needed to come to the emergency department. Patient is any chest pain or palpitations. Patient [place] any abdominal pain patient is nausea vomiting diarrhea. Patient has any swelling to the legs or calf tenderness. - Related Data Home Medications Medication Instructions Recorded Confirmed Fluticasone/Umeclidin/Vilanter 1 puff INHALATION RT-DAILY 06/17/23 08/17/23 [Trelegy Ellipta 100-62.5-25] Albuterol Inhaler [Ventolin Hfa 1 - 2 puff INHALATION RT-Q4H PRN 08/17/23 08/17/23 Inhaler] Amiodarone [Cordarone] 200 mg PO DAILY 08/17/23 08/17/23 Warfarin [Coumadin] 5 mg PO DAILY 08/17/23 08/17/23 Previous Rx's Medication Instructions Recorded Furosemide [Lasix] 20 mg PO DAILY #90 tab 06/21/23 Losartan [Cozaar] 12.5 mg PO DAILY #90 tab 06/21/23 Metoprolol Tartrate [Lopressor] 50 mg PO BID #180 tab 06/21/23 Azithromycin [Zithromax] 500 mg PO DAILY #1 tab 08/19/23 methylPREDNISolone Dose Pack 24 mg PO DAILY #15 tab 08/19/23 [Medrol Dose Pack] Allergies Allergy/AdvReac Type Severity Reaction Status Date / Time No Known Allergies Allergy Verified 10/31/23 18:56 Review of Systems ROS Statement: Those systems with pertinent positive or pertinent negative responses have been documented in the HPI. ROS Other: All systems not noted in ROS Statement are negative. Past Medical History Past Medical History: Atrial Fibrillation, Heart Failure, COPD, Hypertension History of Any Multi-Drug Resistant Organisms: None Reported Past Surgical History: Section, Hysterectomy Additional Past Surgical History / Comment(s): Eye Past Anesthesia/Blood Transfusion Reactions: No Reported Reaction Past Psychological History: No Psychological Hx Reported Smoking Status: Former smoker Past Alcohol Use History: Daily Past Drug Use History: Marijuana - Past Family History Mother Additional Family Medical History / Comment(s): Wegeners disease Father Family Medical History: Congestive Heart Failure (CHF) General Exam - General Exam Comments Initial Comments: GENERAL: Patient is well-developed and well-nourished. Patient is nontoxic and well- hydrated and is in mild distress. ENT: Neck is soft and supple. No significant lymphadenopathy is noted. Oropharynx is clear. Moist mucous membranes. Neck has full range of motion without eliciting any pain. EYES: The sclera were anicteric and conjunctiva were pink and moist. Extraocular movements were intact and pupils were equal round and reactive to light. Eyelids were unremarkable. PULMONARY: Patient is not moving much air. CARDIOVASCULAR: There is a regular rate and rhythm without any murmurs gallops or rubs. ABDOMEN: Soft and nontender with normal bowel sounds. SKIN: Skin is clear with no lesions or rashes and otherwise unremarkable. NEUROLOGIC: Patient is alert and oriented x3. Cranial nerves II through XII are grossly intact. Motor and sensory are also intact. Normal speech, volume and content. Symmetrical smile. MUSCULOSKELETAL: Normal extremities with adequate strength and full range of motion. LYMPHATICS: No significant lymphadenopathy is noted PSYCHIATRIC: Normal psychiatric evaluation. Limitations: no limitations Course Vital Signs 10/31/23 10/31/23 10/31/23 18:54 19:24 19:48 Temperature 99.2 F Pulse Rate 85 91 95 Respiratory 18 22 20 Rate Blood Pressure 179/77 O2 Sat by Pulse 90 L Oximetry 10/31/23 20:00 Temperature Pulse Rate 106 H Respiratory 30 H Rate Blood Pressure 113/85 O2 Sat by Pulse 85 L Oximetry Medical Decision Making - Medical Decision Making EKG is interpreted by myself. EKG shows a sinus rhythm with frequent PVCs at a rate of 89 bpm FL of 177 QRS is 117 QT interval 316 QTc is [address] segment elevation Was pt. sent in by a medical professional or institution (, PA, AUTOMATION CONTROL INTEGRATOR, urgent care, hospital, or [facility]...) When possible be specific @ -No Did you speak to anyone other than the patient for history (EMS, parent, family, police, friend...)? What history was obtained from this source @ -No Did you review nursing and triage notes (agree or disagree)? Why? @ -I reviewed and agree with nursing and triage notes Were old charts reviewed (outside hosp., previous admission, EMS record, old EKG, old radiological studies, urgent care reports/EKG's, [facility] records)? Report findings @ -Ambulatory chest x-ray with previous chest x-ray I saw no acute abnormality today's lab work was also compared to previous lab work. Differential Diagnosis (chest pain, altered mental status, abdominal pain women, abdominal pain men, vaginal bleeding, weakness, fever, dyspnea, syncope, headache, dizziness, GI bleed, back pain, seizure, CVA, palpatations, mental health, musculoskeletal)? @ -Differential Dyspnea: Coronary syndrome, arrhythmia, tamponade, asthma, COPD, pulmonary embolism, pneumonia, pneumothorax, pulmonary effusion, anaphylaxis, diabetic ketoacidosis, flailed chest, pulmonary contusion, diaphragmatic rupture, anemia, neuromuscular, this is not meant to be an all-inclusive list. EKG interpreted by me (3pts min.). @ -As above X-rays interpreted by me (1pt min.). @ -Chest x-ray shows no acute abnormality. CT interpreted by me (1pt min.). @ -None done U/S interpreted by me (1pt. min.). @ -None done What testing was considered but not performed or refused? (CT, X-rays, U/S, labs)? Why? @ -None What meds were considered but not given or refused? Why? @ -None Did you discuss the management of the patient with other professionals (professionals i.e. , PA, AUTOMATION CONTROL INTEGRATOR, lab, RT, psych nurse, social work supervisor, bridge builder, teacher, chief digital media officer, correctional casework specialist)? Give summary @ -I spoke with sound physicians they agreed to admit the patient Was smoking cessation discussed for >3mins.? @ -No Was critical care preformed (if so, how long)? @ -35 minutes Were there social determinants of health that impacted care today? How? (Homelessness, low income, unemployed, alcoholism, drug addiction, transportation, low edu. Level, literacy, decrease access to med. care, senior living, rehab)? @ -No Was there de-escalation of care discussed even if they declined (Discuss DNR or withdrawal of care, Hospice)? DNR status @ -No What co-morbidities impacted this encounter? (DM, HTN, Smoking, COPD, CAD, Cancer, CVA, ARF, Chemo, Hep., AIDS, mental health diagnosis, sleep apnea, morbid obesity)? @ -None Was patient admitted / discharged? Hospital course, mention meds given and route, prescriptions, significant lab abnormalities, going to OR and other perti nent info. @ -Patient was given multiple breathing treatments in the emergency department and steroids. Patient was also given Rocephin for the COPD exacerbation. Patient feels considerably better however patient will be admitted to hospital. Patient's potassium was slightly low patient had replacement in the emergency department. Drug Therapy requiring intensive monitoring for toxicity (Heparin, Nitro, Insulin, Cardizem)? @ -No Were any procedures done? @ -No Diagnosis/symptom? @ -Acute exacerbation of COPD Acute, or Chronic, or Acute on Chronic? @ -Default Uncomplicated (without systemic symptoms) or Complicated (systemic symptoms)? @ -Acute complicated Side effects of treatment? @ -No Exacerbation, Progression, or Severe Exacerbation? @ -No Poses a threat to life or bodily function? How? (Chest pain, [place], [place], pneumonia, PE, COPD, DKA, ARF, appy, cholecystitis, CVA, Diverticulitis, Homicidal, Suicidal, threat to staff... and all critical care pts) @ -Yes this can lead to hypoxia and endorgan dysfunction Diagnosis/symptom? @ -Hypokalemia Acute, or Chronic, or Acute on Chronic? @ -Acute Uncomplicated (without systemic symptoms) or Complicated (systemic symptoms)? @ -Uncomplicated Side effects of treatment? @ -None Exacerbation, Progression, or Severe Exacerbation] @ -No Poses a threat to life or bodily function? @ -No - Lab Data Result diagrams: 10/31/23 19:35 10/31/23 19:35 Lab Results 10/31/23 10/31/23 10/31/23 Range/Units 19:35 19:35 19:35 WBC 8.2 (3.8-10.6) k/uL RBC 4.13 (3.80-5.40) m/uL Hgb 14.3 (11.4-16.0) gm/dL Hct 44.2 (34.0-46.0) % MCV 106.8 H (80.0-100.0) fL MCH 34.5 (25.0-35.0) pg MCHC 32.3 (31.0-37.0) g/dL RDW 13.6 (11.5-15.5) % Plt Count 192 (150-450) k/uL MPV 8.8 Neutrophils % 81 % Lymphocytes % 7 % Monocytes % 8 % Eosinophils % 1 % Basophils % 0 % Neutrophils # 6.7 (1.3-7.7) k/uL Lymphocytes # 0.6 L (1.0-4.8) k/uL Monocytes # 0.6 (0-1.0) k/uL Eosinophils # 0.0 (0-0.7) k/uL Basophils # 0.0 (0-0.2) k/uL Macrocytosis Moderate PT 32.3 H (10.0-12.5) sec INR 3.3 H (<1.2) APTT 36.7 H (22.0-30.0) sec Sodium 136 L (137-145) mmol/L Potassium 2.8 L (3.5-5.1) mmol/L Chloride 96 L (98-107) mmol/L Carbon Dioxide 29 (22-30) mmol/L Anion Gap 11 mmol/L BUN 9 (7-17) mg/dL Creatinine 0.57 (0.52-1.04) mg/dL Est GFR (CKD-EPI)AfAm >90 (>60 ml/min/1.73 sqM) Est GFR (CKD-EPI)NonAf >90 (>60 ml/min/1.73 sqM) Glucose 128 H (74-99) mg/dL Plasma Lactic Acid Luis (0.7-2.0) mmol/L Calcium 9.1 (8.4-10.2) mg/dL Magnesium 1.6 (1.6-2.3) mg/dL Total Bilirubin 0.9 (0.2-1.3) mg/dL AST 47 H (14-36) U/L ALT 34 (4-34) U/L Alkaline Phosphatase 95 (38-126) U/L Total Protein 7.5 (6.3-8.2) g/dL Albumin 4.2 (3.5-5.0) g/dL 10/31/23 Range/Units 19:35 WBC (3.8-10.6) k/uL RBC (3.80-5.40) m/uL Hgb (11.4-16.0) gm/dL Hct (34.0-46.0) % MCV (80.0-100.0) fL MCH (25.0-35.0) pg MCHC (31.0-37.0) g/dL RDW (11.5-15.5) % Plt Count (150-450) k/uL MPV Neutrophils % % Lymphocytes % % Monocytes % % Eosinophils % % Basophils % % Neutrophils # (1.3-7.7) k/uL Lymphocytes # (1.0-4.8) k/uL Monocytes # (0-1.0) k/uL Eosinophils # (0-0.7) k/uL Basophils # (0-0.2) k/uL Macrocytosis PT (10.0-12.5) sec INR (<1.2) APTT (22.0-30.0) sec Sodium (137-145) mmol/L Potassium (3.5-5.1) mmol/L Chloride (98-107) mmol/L Carbon Dioxide (22-30) mmol/L Anion Gap mmol/L BUN (7-17) mg/dL Creatinine (0.52-1.04) mg/dL Est GFR (CKD-EPI)AfAm (>60 ml/min/1.73 sqM) Est GFR (CKD-EPI)NonAf (>60 ml/min/1.73 sqM) Glucose (74-99) mg/dL Plasma Lactic Acid Luis 1.9 (0.7-2.0) mmol/L Calcium (8.4-10.2) mg/dL Magnesium (1.6-2.3) mg/dL Total Bilirubin (0.2-1.3) mg/dL AST (14-36) U/L ALT (4-34) U/L Alkaline Phosphatase (38-126) U/L Total Protein (6.3-8.2) g/dL Albumin (3.5-5.0) g/dL Disposition Clinical Impression: Acute exacerbation of chronic obstructive pulmonary disease, Hypokalemia Disposition: ADMITTED IP TO THIS HOSP Referrals: Dusty Dumas DO [Primary Care Provider] - 1-2 days Time of Disposition: 21:03
[2023-10-31] MEDS: TERBUTALINE 1 MG/ML VIAL SQ STA (19:22)
[2023-10-31] MEDS: ALBUTEROL NEBULIZED 2.5 MG/3 ML INHALATION STA (19:23)
[2023-10-31] MEDS: IPRATROPIUM 0.5 MG/2.5 ML NEBU INHALATION STA (19:23)
[2023-10-31] MEDS: methylPREDNISolone SOD SUCCI 125 MG/2 ML VIAL IV STA (19:27)
[2023-10-31 19:52] LABS: Basophils % (A) 0 %; Eosinophils % (A) 1 %; HCT 44.2 % (34.0-46.0); HGB 14.3 gm/dL (11.4-16.0); Lymphocytes # (A) 0.6 k/uL (1.0-4.8); Lymphocytes % (A) 7 %; MCH 34.5 pg (25.0-35.0); MCHC 32.3 g/dL (31.0-37.0); MCV 106.8 fL (80.0-100.0); Macrocytosis Moderate; Mean Platelet Volume 8.8; Monocytes # (A) 0.6 k/uL (0-1.0); Monocytes % (A) 8 %; Neutrophils # (A) 6.7 k/uL (1.3-7.7); Neutrophils % (A) 81 %; Platelet Count 192 k/uL (150-450); RBC 4.13 m/uL (3.80-5.40); RDW 13.6 % (11.5-15.5); WBC 8.2 k/uL (3.8-10.6)
[2023-10-31] MEDS: cefTRIAXone IN SWFI 1,000 MG/10 ML SYRINGE IVP STA (20:16)
--- NOTE | 2023-10-31 20:30 | XR ---
EXAMINATION TYPE: XR chest 2V DATE OF EXAM: 10/31/2023 8:24 PM CLINICAL INDICATION:Female, 73 years old with history of difficulty breathing; [facility] COMPARISON: Chest radiographs from 08/29/2023 TECHNIQUE: XR chest 2V Frontal and lateral views of the chest. FINDINGS: Lungs/Pleura: There is no evidence of pleural effusion, focal consolidation, or pneumothorax. Pulmonary vascularity: Unremarkable. Heart/mediastinum: Cardiomediastinal silhouette is unremarkable. Atherosclerotic calcifications are seen in the aorta. Musculoskeletal: No acute osseous pathology. IMPRESSION: No acute cardiopulmonary disease/process.
[2023-10-31 20:49] LABS: INR 3.3 (<1.2); Partial Thromboplastin Time 36.7 sec (22.0-30.0); Prothrombin Time 32.3 sec (10.0-12.5)
[2023-10-31 20:55] LABS: ALT 34 U/L (4-34); AST 47 U/L (14-36); African American GFR (CKD) >90 (>60 ml/min/1.73 sqM); Albumin 4.2 g/dL (3.5-5.0); Alkaline Phosphatase 95 U/L (38-126); Anion Gap 11 mmol/L; Blood Urea Nitrogen 9 mg/dL (7-17); Calcium 9.1 mg/dL (8.4-10.2); Carbon Dioxide 29 mmol/L (22-30); Chloride 96 mmol/L (98-107); Glucose 128 mg/dL (74-99); Magnesium 1.6 mg/dL (1.6-2.3); Non-African American GFR(CKD) >90 (>60 ml/min/1.73 sqM); Potassium 2.8 mmol/L (3.5-5.1); Sodium 136 mmol/L (137-145); Total Bilirubin 0.9 mg/dL (0.2-1.3); Total Protein 7.5 g/dL (6.3-8.2)
[2023-10-31] MEDS ORDERED: NALOXONE 0.4 MG/ML 1 ML VIAL IVP PRN (21:03)
[2023-10-31] MEDS ORDERED: IPRATROPIUM-ALBUTEROL 3 ML NEB INHALATION PRN (21:03)
[2023-10-31] MEDS: POTASSIUM CHLORIDE 20 MEQ in WATER FOR INJECTION 1 100ML.BAG IVPB STA (21:06)
[2023-10-31] MEDS: POTASSIUM CHLORIDE ER 20 MEQ TAB.ER PO STA (21:07)
[2023-11-01] MEDS: methylPREDNISolone SOD SUCCI 125 MG/2 ML VIAL IV SCH (00:20)
--- NOTE | 2023-11-01 02:17 | P.HPIM ---
History of Present Illness H&P Date: 10/31/23 Patient is a 73-year-old female with a PMH of COPD with chronic hypoxic and hypercapnic respiratory failure, A-fib on Coumadin, and hypertension who presents to the emergency room with complaints of shortness of breath. Patient reports she has been experiencing cough productive of whitish-yellow phlegm, nasal congestion, and shortness of breath for the past 3 days, somewhat similar to her prior episode in July of this year. Denies experiencing chest discomfort, fever, chills, nausea, vomiting, abdominal pain, diarrhea. Also denied lower extremity swelling or pain. Chest x-ray in the emergency room was unremarkable with EKG showing sinus rhythm with PVCs at 89 bpm with an incomplete right bundle branch block as reviewed by me. Laboratory evaluation was remarkable for sodium 136, potassium 2.8, INR 3.3, chloride 96, glucose 128, troponin less than 0.012, and MCV 106.8 with WBC count 8.2. ED documentation reviewed and case discussed with ED provider. Review of systems: Pertinent positives and negatives as discussed in HPI, a complete review of systems was performed and all other systems are negative. Physical examination: Vital signs reviewed General: non toxic, no distress, appears at stated age, normal weight Derm: no unusual rashes/lesions, warm Head: atraumatic, normocephalic, symmetric Eyes: EOMI, no lid lag, anicteric sclera, pupils equal round reactive to light ENT: Nose and ears atraumatic Neck: No cervical lymphadenopathy, trachea midline, supple Mouth: no lip lesion, mucus membranes moist Cardiovascular: S1S2 reg, no murmur, positive dorsalis pedis pulse bilateral, no edema Lungs: Somewhat diminished air entry bilaterally without rhonchi or rales, no ac cessory muscle use Abdominal: soft, nontender to palpation, no guarding Ext: muscle strength 5 out of 5 in all 4 extremities grossly, no gross muscle atrophy, no contractures, Neuro: CN II-XI grossly intact, no gross focal neuro deficits Psych: Alert, oriented, appropriate affect Assessment: Acute COPD exacerbation Supratherapeutic INR on Coumadin Hypokalemia Macrocytosis Chronic conditions: A-fib on Coumadin, hypertension Imaging: Chest x-ray in the emergency room was unremarkable with EKG showing sinus rhythm with PVCs at 89 bpm with an incomplete right bundle branch block as reviewed by me. Data Review: Laboratory evaluation was remarkable for sodium 136, potassium 2.8, INR 3.3, chloride 96, glucose 128, troponin less than 0.012, and MCV 106.8 with WBC count 8.2. Plan: Continue with Solu-Medrol 60 mg every 6 hourly Continue DuoNeb [id number] and as needed Replace potassium and monitor BMP Hold patient's INR for now with pharmacy to dose subsequently Resume remaining home medications DVT prophylaxis: Coumadin The patient is admitted with an anticipated greater than 2 midnight stay for evaluation of acute COPD exacerbation CODE STATUS: Full Code Discussed with: Patient Anticipated discharge place: Home Past Medical History Past Medical History: Atrial Fibrillation, Heart Failure, COPD, Hypertension History of Any Multi-Drug Resistant Organisms: None Reported Past Surgical History: Section, Hysterectomy Additional Past Surgical History / Comment(s): cataracts Past Anesthesia/Blood Transfusion Reactions: No Reported Reaction Past Psychological History: No Psychological Hx Reported Smoking Status: Former smoker Past Alcohol Use History: Daily Past Drug Use History: Marijuana - Past Family History Mother Additional Family Medical History / Comment(s): Wegeners disease Father Family Medical History: Congestive Heart Failure (CHF) Medications and Allergies Home Medications Medication Instructions Recorded Confirmed Type Fluticasone/Umeclidin/Vilanter 1 puff INHALATION RT-DAILY 06/17/23 10/31/23 History [[place] Ellipta 100-62.5-25] Furosemide [Lasix] 20 mg PO DAILY #90 tab 06/21/23 10/31/23 Rx Losartan [Cozaar] 12.5 mg PO DAILY #90 tab 06/21/23 10/31/23 Rx Metoprolol Tartrate [Lopressor] 50 mg PO BID #180 tab 06/21/23 10/31/23 Rx Albuterol Inhaler [Ventolin Hfa 1 - 2 puff INHALATION RT-Q4H PRN 08/17/23 10/31/23 History Inhaler] Amiodarone [Cordarone] 200 mg PO DAILY 08/17/23 10/31/23 History Warfarin [Coumadin] 5 mg PO SUTUWETHSA 08/17/23 10/31/23 History Cetirizine HCl [Zyrtec] 10 mg PO DAILY PRN 10/31/23 10/31/23 History Fluticasone Nasal [place] [Flonase 1 spray EA NOSTRIL DAILY PRN 10/31/23 10/31/23 History Nasal [place]] Warfarin [Coumadin] 2.5 mg PO MOFR 10/31/23 10/31/23 History Allergies Allergy/AdvReac Type Severity Reaction Status Date / Time No Known Allergies Allergy Verified 10/31/23 21:02 Physical Exam Vitals: Vital Signs Temp Pulse Pulse Resp BP BP Pulse Ox 10/31/23 22:06 98.3 F 84 16 152/71 94 L 10/31/23 21:00 94 24 113/85 94 L 10/31/23 20:00 106 H 30 H 113/85 85 L 10/31/23 19:48 95 20 10/31/23 19:24 91 22 10/31/23 18:54 99.2 F 85 18 179/77 90 L Intake and Output 10/31/23 10/31/23 11/01/23 14:59 22:59 06:59 Other: # Voids 1 Weight 71.214 kg Results CBC & Chem 7: 10/31/23 19:35 10/31/23 19:35 Labs: Abnormal Lab Results - Last 24 Hours (Table) 10/31/23 10/31/23 10/31/23 Range/Units 19:35 19:35 19:35 MCV 106.8 H (80.0-100.0) fL Lymphocytes # 0.6 L (1.0-4.8) k/uL PT 32.3 H (10.0-12.5) sec INR 3.3 H (<1.2) APTT 36.7 H (22.0-30.0) sec Sodium 136 L (137-145) mmol/L Potassium 2.8 L (3.5-5.1) mmol/L Chloride 96 L (98-107) mmol/L Glucose 128 H (74-99) mg/dL AST 47 H (14-36) U/L Thrombosis Risk Factor Assmnt - Choose All That Apply Any of the Below Risk Factors Present?: Yes Each Factor Represents 1 point: Abnormal pulmonary function (COPD) Each Risk Factor Represents 2 Points: Age 61-74 years Thrombosis Risk Factor Assessment Total Risk Factor Score: 3 Thrombosis Risk Factor Assessment Level: Moderate Risk
[2023-11-01 04:58] LABS: HCT 39.8 % (34.0-46.0); HGB 13.2 gm/dL (11.4-16.0); MCH 35.5 pg (25.0-35.0); MCHC 33.2 g/dL (31.0-37.0); MCV 107.1 fL (80.0-100.0); Macrocytosis Moderate; Mean Platelet Volume 7.8; Platelet Count 200 k/uL (150-450); RBC 3.72 m/uL (3.80-5.40); RDW 13.5 % (11.5-15.5); WBC 4.4 k/uL (3.8-10.6)
[2023-11-01 05:12] LABS: Blood Urea Nitrogen 9 mg/dL (7-17); Calcium 8.8 mg/dL (8.4-10.2); Chloride 101 mmol/L (98-107); Glucose 191 mg/dL (74-99); Potassium 3.7 mmol/L (3.5-5.1); Sodium 136 mmol/L (137-145)
[2023-11-01 05:17] LABS: African American GFR (CKD) >90 (>60 ml/min/1.73 sqM); Anion Gap 5 mmol/L; Carbon Dioxide 30 mmol/L (22-30); Non-African American GFR(CKD) >90 (>60 ml/min/1.73 sqM)
[2023-11-01 06:10] LABS: Glucose,Whole Blood 174 mg/dL (70-110)
[2023-11-01] MEDS: INSULIN ASPART (NovoLOG) 100 UNIT/ML VIAL SQ SCH (06:26)
[2023-11-01] MEDS: IPRATROPIUM-ALBUTEROL 3 ML NEB INHALATION SCH (07:42)
[2023-11-01] MEDS: SYMBICORT 80-4.5 MCG INHALER INHALATION SCH (07:42)
[2023-11-01] MEDS: AMIODARONE 200 MG TAB PO SCH (09:37)
[2023-11-01] MEDS: FUROSEMIDE 20 MG TAB PO SCH (09:37)
[2023-11-01] MEDS: AMOXIC-POT CLAV 875-125MG 1 EACH TAB PO SCH (09:37)
[2023-11-01] MEDS: LOSARTAN 25 MG TAB PO SCH (09:38)
[2023-11-01] MEDS: METOPROLOL TARTRATE 50 MG TAB PO SCH (09:38)
[2023-11-01 11:10] LABS: Glucose,Whole Blood 205 mg/dL (70-110)
--- NOTE | 2023-11-01 11:33 | P.PN ---
Subjective Progress Note Date: 11/01/23 Patient is a 73-year-old female with a PMH of COPD with chronic hypoxic and hypercapnic respiratory failure, A-fib on Coumadin, and hypertension who presents to the emergency room with complaints of shortness of breath. Patient reports she has been experiencing cough productive of whitish-yellow phlegm, nasal congestion, and shortness of breath for the past 3 days, somewhat similar to her prior episode in July of this year. Denies experiencing chest discomfort, fever, chills, nausea, vomiting, abdominal pain, diarrhea. Also denied lower extremity swelling or pain. Chest x-ray in the emergency room was unremarkable with EKG showing sinus rhythm with PVCs at 89 bpm with an incomplete right bundle branch block. Laboratory evaluation was remarkable for sodium 136, potassium 2.8, INR 3.3, chloride 96, glucose 128, troponin less than 0.012, and MCV 106.8 with WBC count 8.2. Started on bronchodilators and SoluMedrol. 10/31 Patient was seen and examined. Breathing 50% better. Does not have a nebulizer at home. Follows Dr. Mix. CBC RBC 3.72, MCV 107.1. BMP Na 136, Cr 0.47, glu 191. Vital signs reviewed General: non toxic, no distress, appears at stated age, normal weight Derm: no unusual rashes/lesions, warm Head: atraumatic, normocephalic, symmetric Eyes: EOMI, no lid lag, anicteric sclera ENT: Nose and ears atraumatic Neck: No cervical lymphadenopathy, trachea midline, supple Mouth: no lip lesion, mucus membranes moist Cardiovascular: S1S2 reg, no murmur, no edema Lungs: Mild diffuse rhonchi without wheezing, no accessory muscle use Ext: muscle strength 5 out of 5 in all 4 extremities grossly, no gross muscle atrophy, no contractures, Neuro: no gross focal neuro deficits Psych: Alert, oriented, appropriate affect Based on my assessment of this patient, this patient meets a high complexity level of care. Patient has an acute diagnosis of COPD exacerbation that poses a threat to life or bodily function. Acute hypoxic respiratory failure Acute COPD exacerbation: DuoNeb QID scheduled and Q2H PRN for SOB/wheezing. SoluMedrol 60 mg IV Q6H. Pulmonary consult. Supratherapeutic INR on Coumadin: Coumadin dosed per pharmacy. Hypokalemia: Resolved. Macrocytosis CODE STATUS: FULL CODE. DVT Prophylaxis: Coumadin GI Prophylaxis: Protonix Designated medical POA if patient is not able to make medical decisions for themselves: I have reviewed the following bi consultant notes: I have reviewed the results of the following tests: CBC, BMP I have ordered the following tests: I have discussed the care of this patient with the following independent historian: I have independently interpreted the following test below: I have discussed the management of this patient with the following physician: Objective - Vital Signs Vital signs: Vital Signs Temp 97.8 F 11/01/23 07:05 Pulse 65 11/01/23 08:00 Resp 16 11/01/23 08:00 BP 155/80 11/01/23 07:05 Pulse Ox 96 11/01/23 07:45 FiO2 Intake & Output 10/31/23 11/01/23 11/01/23 18:59 06:59 18:59 Intake Total 200 Balance 200 Weight 71.214 kg 71.214 kg Intake: Oral 200 Other: Voiding Method Toilet # Voids 1 - Labs CBC & Chem 7: 11/01/23 04:34 11/01/23 04:34 Labs: Abnormal Lab Results - Last 24 Hours (Table) 10/31/23 10/31/23 10/31/23 Range/Units 19:35 19:35 19:35 RBC (3.80-5.40) m/uL MCV 106.8 H (80.0-100.0) fL MCH (25.0-35.0) pg Lymphocytes # 0.6 L (1.0-4.8) k/uL PT 32.3 H (10.0-12.5) sec INR 3.3 H (<1.2) APTT 36.7 H (22.0-30.0) sec Sodium 136 L (137-145) mmol/L Potassium 2.8 L (3.5-5.1) mmol/L Chloride 96 L (98-107) mmol/L Creatinine (0.52-1.04) mg/dL Glucose 128 H (74-99) mg/dL POC Glucose (mg/dL) (70-110) mg/dL AST 47 H (14-36) U/L 11/01/23 11/01/23 11/01/23 Range/Units 04:34 04:34 06:08 RBC 3.72 L (3.80-5.40) m/uL MCV 107.1 H (80.0-100.0) fL MCH 35.5 H (25.0-35.0) pg Lymphocytes # (1.0-4.8) k/uL PT (10.0-12.5) sec INR (<1.2) APTT (22.0-30.0) sec Sodium 136 L (137-145) mmol/L Potassium (3.5-5.1) mmol/L Chloride (98-107) mmol/L Creatinine 0.47 L (0.52-1.04) mg/dL Glucose 191 H (74-99) mg/dL POC Glucose (mg/dL) 174 H (70-110) mg/dL AST (14-36) U/L 11/01/23 Range/Units 11:08 RBC (3.80-5.40) m/uL MCV (80.0-100.0) fL MCH (25.0-35.0) pg Lymphocytes # (1.0-4.8) k/uL PT (10.0-12.5) sec INR (<1.2) APTT (22.0-30.0) sec Sodium (137-145) mmol/L Potassium (3.5-5.1) mmol/L Chloride (98-107) mmol/L Creatinine (0.52-1.04) mg/dL Glucose (74-99) mg/dL POC Glucose (mg/dL) 205 H (70-110) mg/dL AST (14-36) U/L
[2023-11-01 12:04] LABS: INR 2.76 sec (0.93-1.11); Prothrombin Time 27.9 sec (9.9-11.9)
--- NOTE | 2023-11-01 15:21 | P.CNPUL ---
History of Present Illness Consult date: 11/01/23 Reason for consult: COPD History of present illness: This is a 73-year-old female patient was being seen in the hospital for worsening shortness of breath. The patient follows up in our office regarding her COPD. She is a ex-smoker. She is currently maintained on Trelegy Ellipta regarding her COPD and using albuterol on as-needed basis. She also has history of chronic A-fib maintained on anticoagulation with warfarin. The patient started experiencing increased dyspnea cough chest tightness chest congestion and wheezing. This has been going on for the past 3 days. She had a similar episode back in July of this year and at that time, the patient was diagnosed having an RSV infection and she required a brief hospitalization. The patient has quit smoking around 20 years ago. She carries more than [id number] smoking history. She also has history of CHF and she has impaired LV function with systolic heart failure and ejection fraction of 25%. Current INR is at 2.7 with a hemoglobin of 13.2 and a white cell count of 4.4. BUN is at 9 with a creatinine of 0.7 and sodium levels at 136. Troponins are negative. The LFTs are normal. The patient had a chest x-ray at the time of admission that showed no acute cardiopulmonary abnormalities. Her EKG showed sinus rhythm with frequent PVCs and incomplete right bundle branch block pattern. Review of Systems CONSTITUTIONAL: Denies any recent significant weight loss or weight gain. EYES: Denies change in vision. EARS, NOSE, MOUTH, THROAT: Denies headaches, denies sore throat. CARDIOVASCULAR: Denies chest pain, palpitations or syncopal episodes. RESPIRATORY: Positive for shortness of breath, cough, congestion no hemoptysis. GASTROINTESTINAL: Denies change in appetite, denies abdominal pain GENITOURINARY: Denies hematuria, denies infections. MUSKULOSKELETAL: Denies pain, denies swelling. INTEGUMENTARY: Denies rash, denies eczema. NEUROLOGICAL: Denies recent memory loss, no recent seizure activity. PSYCHIATRIC: Denies anxiety, denies depression. HEMATOLOGIC/LYMPHATIC: Denies anemia, denies enlarged lymph nodes. Constitutional: Reports fatigue Eyes: denies as per HPI, denies blurred vision, denies bulging eye, denies decreased vision, denies diplopia, denies discharge, denies dry eye, denies irritation, denies itching, denies pain, denies photophobia, denies loss of peripheral vision, denies loss of vision, denies tunnel vision/blind spots Ears: deny: decreased hearing, ear discharge, earache, tinnitus Ears, nose, mouth and throat: Reports as per HPI Breasts: absent: as per HPI, change in shape, gynecomastia, masses, nipple discharge, pain, skin changes, swelling Cardiovascular: Reports decreased exercise tolerance, Reports dyspnea on exertion, Reports irregular heart beat Respiratory: Reports congestion, Reports dyspnea, Reports wheezing Gastrointestinal: Reports as per HPI Genitourinary: Reports as per HPI Menstruation: Reports as per HPI Musculoskeletal: Reports as per HPI Musculoskeletal: absent: ankle pain, ankle stiffness, ankle swelling Integumentary: Reports as per HPI Neurological: Reports as per HPI Psychiatric: Reports as per HPI Endocrine: Reports as per HPI Hematologic/Lymphatic: Reports as per HPI Past Medical History Past Medical History: Atrial Fibrillation, Heart Failure, COPD, Hypertension History of Any Multi-Drug Resistant Organisms: None Reported Past Surgical History: Section, Hysterectomy Additional Past Surgical History / Comment(s): cataracts Past Anesthesia/Blood Transfusion Reactions: No Reported Reaction Past Psychological History: No Psychological Hx Reported Smoking Status: Former smoker Past Alcohol Use History: Daily Past Drug Use History: Marijuana - Past Family History Mother Additional Family Medical History / Comment(s): Wegeners disease Father Family Medical History: Congestive Heart Failure (CHF) Medications and Allergies Home Medications Medication Instructions Recorded Confirmed Type Fluticasone/Umeclidin/Vilanter 1 puff INHALATION RT-DAILY 06/17/23 10/31/23 History [[place] H[place]ron 100-62.5-25] Furosemide [Lasix] 20 mg PO DAILY #90 tab 06/21/23 10/31/23 Rx Losartan [Cozaar] 12.5 mg PO DAILY #90 tab 06/21/23 10/31/23 Rx Metoprolol Tartrate [Lopressor] 50 mg PO BID #180 tab 06/21/23 10/31/23 Rx Albuterol Inhaler [Ventolin Hfa 1 - 2 puff INHALATION RT-Q4H PRN 08/17/23 10/31/23 History Inhaler] Amiodarone [Cordarone] 200 mg PO DAILY 08/17/23 10/31/23 History Warfarin [Coumadin] 5 mg PO SUTUWETHSA 08/17/23 10/31/23 History Cetirizine HCl [Zyrtec] 10 mg PO DAILY PRN 10/31/23 10/31/23 History Fluticasone Nasal [place] [Flonase 1 spray EA NOSTRIL DAILY PRN 10/31/23 10/31/23 History Nasal [place]] Warfarin [Coumadin] 2.5 mg PO MOFR 10/31/23 10/31/23 History Allergies Allergy/AdvReac Type Severity Reaction Status Date / Time No Known Allergies Allergy Verified 10/31/23 21:02 Physical Exam Vitals: Vital Signs Temp Pulse Pulse Resp BP BP Pulse Ox 11/01/23 08:00 65 16 11/01/23 07:55 92 11/01/23 07:45 88 96 11/01/23 07:05 97.8 F 65 13 155/80 97 11/01/23 01:53 98.1 F 68 15 138/68 92 L 10/31/23 22:06 98.3 F 84 16 152/71 94 L 10/31/23 21:00 94 24 113/85 94 L 10/31/23 20:00 106 H 30 H 113/85 85 L 10/31/23 19:48 95 20 10/31/23 19:24 91 22 10/31/23 18:54 99.2 F 85 18 179/77 90 L Intake and Output 10/31/23 11/01/23 11/01/23 22:59 06:59 14:59 Intake Total 200 Balance 200 Intake: Oral 200 Other: Voiding Method Toilet # Voids 1 Weight 71.214 kg GENERAL EXAM: Alert, very pleasant 73-year-old female, on 3 L of oxygen by nasal cannula,, comfortable not in acute respiratory distress. EYES: Normal reaction of pupils, equal size. NOSE: Clear with pink turbinates. THROAT: No erythema or exudates. NECK: No masses, no JVD. CHEST: No chest wall deformity. LUNGS: Exhalation phase of breathing. CVS: S1 and S2 normal with no audible murmur, regular rhythm. ABDOMEN: No hepatosplenomegaly, normal bowel sounds, no guarding or rigidity. SPINE: No scoliosis or deformity SKIN: No rashes CENTRAL NERVOUS SYSTEM: No focal deficits, tone is normal in all 4 extremities. EXTREMITIES: There is no peripheral edema. No clubbing, no cyanosis. Perip heral pulses are intact. Results - Laboratory Findings CBC and BMP: 11/01/23 04:34 11/01/23 04:34 PT/INR, D-dimer PT 32.3 sec (10.0-12.5) H 10/31/23 19:35 INR 3.3 (<1.2) H 10/31/23 19:35 Abnormal lab findings: Abnormal Labs 10/31/23 10/31/23 10/31/23 19:35 19:35 19:35 RBC MCV 106.8 H MCH Lymphocytes # 0.6 L PT 32.3 H INR 3.3 H APTT 36.7 H Sodium 136 L Potassium 2.8 L Chloride 96 L Creatinine Glucose 128 H POC Glucose (mg/dL) AST 47 H 11/01/23 11/01/23 11/01/23 04:34 04:34 06:08 RBC 3.72 L MCV 107.1 H MCH 35.5 H Lymphocytes # PT INR APTT Sodium 136 L Potassium Chloride Creatinine 0.47 L Glucose 191 H POC Glucose (mg/dL) 174 H AST 11/01/23 11:08 RBC MCV MCH Lymphocytes # PT INR APTT Sodium Potassium Chloride Creatinine Glucose POC Glucose (mg/dL) 205 H AST - Diagnostic Findings Chest x-ray: image reviewed Assessment and Plan Plan: Acute hypoxemic respiratory failure, currently on 3 L of oxygen by nasal cannula and this is related to the COPD exacerbation. COPD exacerbation. Rule out underlying tracheobronchitis. No evidence of pneumonia based on today's chest x-ray.. The patient has been maintained on Trelegy Ellipta on an outpatient basis regarding her COPD. systolic congestive heart failure previous echocardiogram revealed impaired left ventricular systolic function with ejection fraction of 25 to 30% Chronic atrial fibrillation, current rhythm is sinus and the patient has a normal sinus rhythm with a RBB pattern and frequent PVCs. Acute hypercapnic respiratory failure secondary RSV infection in Jul 2023 Former smoker however quit 20 years ago and she has 40 pyear smoking Plan Titrate oxygen flow to maintain saturation above 90% Obtain viral screen including RSV COVID-19 and influenza Start the patient on DuoNeb nebulized treatments [id number] Trelegy Ellipta has been replaced with Symbicort as maintenance during her hospital stay IV Solu-Medrol 60 mg every 6 hours Resume home medications Daily PT/INR monitoring and monitored and adjusted warfarin dose No signs of any decompensated heart failure at this point in time We will continue to follow
[2023-11-01 16:16] LABS: Glucose,Whole Blood 144 mg/dL (70-110)
[2023-11-01] MEDS: WARFARIN 5 MG TAB PO ONE (18:36)
[2023-11-01 20:13] LABS: Glucose,Whole Blood 213 mg/dL (70-110)
[2023-11-02 05:54] LABS: Glucose,Whole Blood 172 mg/dL (70-110)
[2023-11-02] MEDS: PANTOPRAZOLE 40 MG TABLET PO SCH (05:58)
[2023-11-02 06:39] LABS: INR 2.3 (<1.2); Prothrombin Time 22.6 sec (10.0-12.5)
[2023-11-02] MEDS ORDERED: ALBUTEROL NEBULIZED 2.5 MG/3 ML INHALATION PRN (10:06)
--- NOTE | 2023-11-02 11:37 | CA ---
Transthoracic Echo Report Name: Emilia Woodward Age: 73 Gender: F : 1950 Exam Date: 11/02/2023 10:15 Exam Location: [facility] Ht (in): 64 Wt (lb): 157 Ordering Physician: Rubina Callahan MD Attending/Referring Phys: Fisher Mussel May De Jesus RDCS Procedure CPT: Indications: chf Cardiac Hx: Technical Quality: Technically difficult study Contrast 1: Definity Total Dose (mL): 2 Contrast 2: Total Dose (mL): MEASUREMENTS (Male / Female) Normal Values 2D ECHO LV Diastolic Diameter PLAX 5.4 cm 4.2 - 5.9 / 3.9 - 5.3 cm LV Systolic Diameter PLAX 4.0 cm IVS Diastolic Thickness 1.1 cm 0.6 - 1.0 / 0.6 - 0.9 cm LVPW Diastolic Thickness 1.0 cm 0.6 - 1.0 / 0.6 - 0.9 cm LV Relative Wall Thickness 0.4 RV Internal Dim ED PLAX 3.5 cm LV Diastolic Volume MOD BP 98.1 cm??? 67 - 155 / 56 - 104 cm??? LV Systolic Volume MOD BP 65.3 cm??? 22 - 58 / 19 - 49 cm??? LV Ejection Fraction MOD BP 33.4 % >= 55 % LV Cardiac Index MOD BP 1195.2 cm???/min???m??? LV Diastolic Volume MOD 4C 87.0 cm??? LV Systolic Volume MOD 4C 68.5 cm??? LV Ejection Fraction MOD 4C 21.3 % LV Cardiac Index MOD 4C 675.2 cm???/min???m??? LV Diastolic Length 4C 6.8 cm LV Systolic Length 4C 5.7 cm LV Diastolic Volume MOD 2C 107.4 cm??? LV Systolic Volume MOD 2C 60.8 cm??? LV Ejection Fraction MOD 2C 43.4 % LV Cardiac Index MOD 2C 1700.0 cm???/min???m??? LV Diastolic Length 2C 7.0 cm LV Systolic Length 2C 5.5 cm LA Volume 99.2 cm??? 18 - 58 / 22 - 52 cm??? LA Volume Index 54.8 cm???/m??? 16 - 28 cm???/m??? M-MODE LV Diastolic Diameter MM 6.5 cm 4.2 - 5.9 / 3.9 - 5.3 cm LV Systolic Diameter MM 5.6 cm LV Cardiac Index MM Teich 2173.3 cm???/min???m??? IVS Diastolic Thickness MM 1.3 cm 0.6 - 1.0 / 0.6 - 0.9 cm LVPW Diastolic Thickness MM 1.6 cm 0.6 - 1.0 / 0.6 - 0.9 cm LV Relative Wall Thickness MM 0.5 0.24 - 0.42 / 0.22 - 0.42 LV Mass Index MM 257.0 g/m??? 49 - 115 / 43 - 95 g/m??? Aortic Root Diameter MM 2.6 cm LA Systolic Diameter MM 5.2 cm LA Ao Ratio MM 2.0 AV Cusp Separation MM 2.0 cm DOPPLER AV Peak Velocity 153.5 cm/s AV Peak Gradient 9.4 mmHg AV Mean Velocity 120.7 cm/s AV Mean Gradient 6.1 mmHg AV Velocity Time Integral 33.5 cm LVOT Peak Velocity 105.7 cm/s LVOT Peak Gradient 4.5 mmHg LVOT Velocity Time Integral 23.7 cm MV Area PHT 4.5 cm??? Mitral E Point Velocity 94.9 cm/s Mitral A Point Velocity 84.6 cm/s Mitral E to A Ratio 1.1 MV Deceleration Time 166.8 ms MV E' Velocity 4.8 cm/s Mitral E to MV E' Ratio 19.7 TR Peak Velocity 319.8 cm/s TR Peak Gradient 40.9 mmHg Right Ventricular Systolic Press 45.9 mmHg FINDINGS Left Ventricle Severely increased left ventricular mass. Mildly increased septal wall thickness. Mildly increased posterior wall thickness. Moderately decreased left ventricular ejection fraction. Left ventricular ejection fraction is estimated at 40-45 %. Grade 2 diastolic dysfunction. Right Ventricle Mild right ventricular dilatation. Mild pulmonary hypertension. Right Atrium Mild right atrial dilatation. Left Atrium Severely increased left atrial volume. Mildly increased left atrial area. Mitral Valve Structurally normal mitral valve. Mild mitral annular calcification. Moderate mitral regurgitation. Aortic Valve No aortic valve stenosis or regurgitation. Tricuspid Valve Structurally normal tricuspid valve. Moderate tricuspid regurgitation. Pulmonic Valve Structurally normal pulmonic valve. Pericardium No pericardial effusion. Aorta Normal size aortic root and proximal ascending aorta. CONCLUSIONS Left ventricle is at upper limits of normal with moderate concentric LVH. Right ventricle is mildly dilated. There is mild pulmonary hypertension. Mitral annular calcification and aortic valve sclerosis without restriction. Moderate mitral regurgitation. No pericardial effusion. The global decrease in contractility noted ejection fraction is about 40-45 % Previewed by: Dr. John Paul Wright MD (Electronically Signed) Final Date: 02 November 2023 11:36
[2023-11-02 11:42] LABS: Glucose,Whole Blood 233 mg/dL (70-110)
[2023-11-02] MEDS: methylPREDNISolone SOD SUCCI 125 MG/2 ML VIAL IV SCH (13:07)
--- NOTE | 2023-11-02 15:18 | P.PN ---
Subjective Progress Note Date: 11/02/23 Patient is a 73-year-old female with a PMH of COPD with chronic hypoxic and hypercapnic respiratory failure, A-fib on Coumadin, and hypertension who presents to the emergency room with complaints of shortness of breath. Patient reports she has been experiencing cough productive of whitish-yellow phlegm, nasal congestion, and shortness of breath for the past 3 days, somewhat similar to her prior episode in July of this year. Denies experiencing chest discomfort, fever, chills, nausea, vomiting, abdominal pain, diarrhea. Also denied lower extremity swelling or pain. Chest x-ray in the emergency room was unremarkable with EKG showing sinus rhythm with PVCs at 89 bpm with an incomplete right bundle branch block. Laboratory evaluation was remarkable for sodium 136, potassium 2.8, INR 3.3, chloride 96, glucose 128, troponin less than 0.012, and MCV 106.8 with WBC count 8.2. Started on bronchodilators and SoluMedrol. 10/31 Patient was seen and examined. Breathing 50% better. Does not have a nebulizer at home. Follows Dr. Mix. CBC RBC 3.72, MCV 107.1. BMP Na 136, Cr 0.47, glu 191. 11/01 Patient was seen and examined this morning. Breathing better. Still wheezing. Home O2 eval shows that she desaturates to 84% on RA. We will monitor the patient for one more day to possibly avoid discharging her with oxygen. INR 2.3 PT 22.6. Vital signs reviewed General: non toxic, no distress, appears at stated age, normal weight Derm: no unusual rashes/lesions, warm Head: atraumatic, normocephalic, symmetric Eyes: EOMI, no lid lag, anicteric sclera ENT: Nose and ears atraumatic Neck: No cervical lymphadenopathy, trachea midline, supple Mouth: no lip lesion, mucus membranes moist Cardiovascular: S1S2 reg, no murmur, no edema Lungs: Mild diffuse rhonchi without wheezing, no accessory muscle use Ext: muscle strength 5 out of 5 in all 4 extremities grossly, no gross muscle atrophy, no contractures, Neuro: no gross focal neuro deficits Psych: Alert, oriented, appropriate affect Based on my assessment of this patient, this patient meets a high complexity level of care. Patient has an acute diagnosis of COPD exacerbation that poses a threat to life or bodily function. Acute hypoxic respiratory failure Acute COPD exacerbation: DuoNeb QID scheduled and Q2H PRN for SOB/wheezing. Linsey uMedrol 60 mg IV Q6H. Pulmonary consult. Supratherapeutic INR on Coumadin: Coumadin dosed per pharmacy. Hypokalemia: Resolved. Macrocytosis CODE STATUS: FULL CODE. DVT Prophylaxis: Coumadin GI Prophylaxis: Protonix Designated medical POA if patient is not able to make medical decisions for themselves: I have reviewed the following farm consultant notes: Pulmonary I have reviewed the results of the following tests: INR. I have ordered the following tests: I have discussed the care of this patient with the following independent historian: HORACIO. I have independently interpreted the following test below: I have discussed the management of this patient with the following physician: Objective - Vital Signs Vital signs: Vital Signs Temp 98.7 F 11/02/23 14:05 Pulse 85 11/02/23 14:05 Resp 17 11/02/23 14:05 BP 153/79 11/02/23 14:05 Pulse Ox 93 L 11/02/23 14:05 FiO2 Intake & Output 11/01/23 11/02/23 11/02/23 18:59 06:59 18:59 Intake Total 450 Balance 450 Intake: Oral 450 Other: Voiding Method Toilet Toilet # Voids 1 2 3 - Labs CBC & Chem 7: 11/01/23 04:34 11/01/23 04:34 Labs: Abnormal Lab Results - Last 24 Hours (Table) 11/01/23 11/01/23 11/02/23 Range/Units 16:15 20:12 05:52 PT (10.0-12.5) sec INR (<1.2) POC Glucose (mg/dL) 144 H 213 H 172 H (70-110) mg/dL 11/02/23 11/02/23 Range/Units 05:55 11:40 PT 22.6 H (10.0-12.5) sec INR 2.3 H (<1.2) POC Glucose (mg/dL) 233 H (70-110) mg/dL Microbiology - Last 24 Hours (Table) 10/31/23 19:45 Blood Culture - Preliminary Blood
--- NOTE | 2023-11-02 15:39 | P.PN ---
Subjective Progress Note Date: 11/02/23 This is a 73-year-old female patient was being seen in the hospital for worseni ng shortness of breath. The patient follows up in our office regarding her COPD. She is a ex-smoker. She is currently maintained on Trelegy Ellipta regarding her COPD and using albuterol on as-needed basis. She also has history of chronic A-fib maintained on anticoagulation with warfarin. The patient started experiencing increased dyspnea cough chest tightness chest congestion and wheezing. This has been going on for the past 3 days. She had a similar episode back in July of this year and at that time, the patient was diagnosed having an RSV infection and she required a brief hospitalization. The patient has quit smoking around 20 years ago. She carries more than [id number] smo ankita history. She also has history of CHF and she has impaired LV function with systolic heart failure and ejection fraction of 25%. Current INR is at 2.7 with a hemoglobin of 13.2 and a white cell count of 4.4. BUN is at 9 with a creatinine of 0.7 and sodium levels at 136. Troponins are negative. The LFTs are normal. The patient had a chest x-ray at the time of admission that showed no acute cardiopulmonary abnormalities. Her EKG showed sinus rhythm with frequent PVCs and incomplete right bundle branch block pattern. On today's evaluation of 11/02/2023, the patient is being seen for a follow-up. The patient is known to have COPD maintained Trelegy Ellipta on outpatient basis and the patient also has issues with chronic atrial fibrillation. Patient also has CHF with impaired LV function with an ejection fraction of 25 to 30%. On today's evaluation, she is feeling better. Less short of breath and less bronchospastic compared to yesterday although she is not fully recovered. No fever. No chills. INR is at 2.3 and the patient remains on warfarin. She is currently Augmentin as an empiric antibiotic coverage for now. No other significant events overnight. The patient remains on 2 L of oxygen by nasal cannula with a pulse ox of 92%. Objective - Vital Signs Vital signs: Vital Signs Temp 98.9 F 11/02/23 07:42 Pulse 70 11/02/23 12:04 Resp 18 11/02/23 07:42 BP 159/83 11/02/23 07:42 Pulse Ox 94 L 11/02/23 08:32 FiO2 Intake & Output 11/01/23 11/02/23 11/02/23 18:59 06:59 18:59 Intake Total 450 Balance 450 Intake: Oral 450 Other: Voiding Method Toilet Toilet # Voids 1 2 - Exam GENERAL EXAM: Alert, very pleasant 73-year-old female, on 3 L of oxygen by nasal cannula,, comfortable not in acute respiratory distress. EYES: Normal reaction of pupils, equal size. NOSE: Clear with pink turbinates. THROAT: No erythema or exudates. NECK: No masses, no JVD. CHEST: No chest wall deformity. LUNGS: Exhalation phase of breathing. CVS: S1 and S2 normal with no audible murmur, regular rhythm. ABDOMEN: No hepatosplenomegaly, normal bowel sounds, no guarding or rigidity. SPINE: No scoliosis or deformity SKIN: No rashes CENTRAL NERVOUS SYSTEM: No focal deficits, tone is normal in all 4 extremities. EXTREMITIES: There is no peripheral edema. No clubbing, no cyanosis. Peripheral pulses are intact. - Labs CBC & Chem 7: 11/01/23 04:34 11/01/23 04:34 Labs: Abnormal Lab Results - Last 24 Hours (Table) 11/01/23 11/01/23 11/02/23 Range/Units 16:15 20:12 05:52 PT (10.0-12.5) sec INR (<1.2) POC Glucose (mg/dL) 144 H 213 H 172 H (70-110) mg/dL 11/02/23 11/02/23 Range/Units 05:55 11:40 PT 22.6 H (10.0-12.5) sec INR 2.3 H (<1.2) POC Glucose (mg/dL) 233 H (70-110) mg/dL Microbiology - Last 24 Hours (Table) 10/31/23 19:45 Blood Culture - Preliminary Blood Assessment and Plan Plan: Acute hypoxemic respiratory failure, currently on 2 L of oxygen by nasal cannula and this is related to the COPD exacerbation. COPD exacerbation. Rule out underlying tracheobronchitis. No evidence of pneumonia based on today's chest x-ray.. The patient has been maintained on Trelegy Ellipta on an outpatient basis regarding her COPD. Clinically improving and less short of breath compared to yesterday systolic congestive heart failure previous echocardiogram revealed impaired left ventricular systolic function with ejection fraction of 25 to 30% Chronic atrial fibrillation, current rhythm is sinus and the patient has a normal sinus rhythm with a RBB pattern and frequent PVCs. Acute hypercapnic respiratory failure secondary RSV infection in Jul 2023 Former smoker however quit 20 years ago and she has 40 pyear smoking Plan Clinically improving and less bronchospastic and wheezy on today's evaluation Titrate oxygen flow to maintain saturation above 90% Obtain viral screen including RSV COVID-19 and influenza Continue the patient on DuoNeb nebulized treatments [id number] Trelegy Ellipta has been replaced with Symbicort as maintenance during her hospital stay IV Solu-Medrol 60 mg every 6 hours Resume home medications Daily PT/INR monitoring and monitored and adjusted warfarin dose, INR therapeutic at 2.3 No signs of any decompensated heart failure at this point in time We will continue to follow
[2023-11-02 16:23] LABS: Glucose,Whole Blood 142 mg/dL (70-110)
[2023-11-02] MEDS: WARFARIN 2.5 MG TAB PO ONE (18:19)
[2023-11-02 21:21] LABS: Glucose,Whole Blood 217 mg/dL (70-110)
[2023-11-03 05:59] LABS: Glucose,Whole Blood 184 mg/dL (70-110)
[2023-11-03 07:21] LABS: INR 2.2 (<1.2); Prothrombin Time 22.2 sec (10.0-12.5)
[2023-11-03 09:26] VITALS: BP 162/77; PULSE 76; RESP 18; TEMP 98
--- NOTE | 2023-11-03 11:02 | P.DS ---
Providers Date of admission: 10/31/23 21:04 Expected date of discharge: 11/03/23 Attending physician: Dawson Fleming MD Consults: 11/01/23 07:07 Consult Physician Stat Consulting Provider: Diane Barth Consult Reason/Comments: COPD Do you want consulting provider notified?: Yes Primary care physician: [facility] Course: Patient is a 73-year-old female with a PMH of COPD with chronic hypoxic and hypercapnic respiratory failure, A-fib on Coumadin, and hypertension who presents to the emergency room with complaints of shortness of breath. Patient reports she has been experiencing cough productive of whitish-yellow phlegm, nasal congestion, and shortness of breath for the past 3 days, somewhat similar to her prior episode in July of this year. Denies experiencing chest discomfort, fever, chills, nausea, vomiting, abdominal pain, diarrhea. Also denied lower extremity swelling or pain. Chest x-ray in the emergency room was unremarkable with EKG showing sinus rhythm with PVCs at 89 bpm with an incomplete right bundle branch block. Laboratory evaluation was remarkable for sodium 136, potassium 2.8, INR 3.3, chloride 96, glucose 128, troponin less than 0.012, and MCV 106.8 with WBC count 8.2. Started on bronchodilators and SoluMedrol. Pulmonology consulted. Started on Augmentin. Echo showed EF 40-45% with G2DD. 10/31 Patient was seen and examined. Breathing 50% better. Does not have a nebulizer at home. Follows Dr. Mix. CBC RBC 3.72, MCV 107.1. BMP Na 136, Cr 0.47, glu 191. 11/01 Patient was seen and examined this morning. Breathing better. Still wheezing. Home O2 eval shows that she desaturates to 84% on RA. We will monitor the patient for one more day to possibly avoid discharging her with oxygen. INR 2.3 PT 22.6. 11/02 Patient was seen and examined. Breathing better. Desaturated to 80s on rest on RA. Plans to obtain oxygen today. Plans for discharge home today. Vital signs reviewed General: non toxic, no distress, appears at stated age, normal weight Derm: no unusual rashes/lesions, warm Head: atraumatic, normocephalic, symmetric Eyes: EOMI, no lid lag, anicteric sclera ENT: Nose and ears atraumatic Neck: No cervical lymphadenopathy, trachea midline, supple Mouth: no lip lesion, mucus membranes moist Cardiovascular: S1S2 reg, no murmur, no edema Lungs: Mild expiratory wheezing scattered, no accessory muscle use Ext: muscle strength 5 out of 5 in all 4 extremities grossly, no gross muscle atrophy, no contractures, Neuro: no gross focal neuro deficits Psych: Alert, oriented, appropriate affect Discharge Diagnosis: Acute hypoxic respiratory failure Acute COPD exacerbation Supratherapeutic INR on Coumadin Atrial fibrillation Hypertension Hypokalemia Macrocytosis This complex discharge took 35 minutes to complete. Patient Condition at Discharge: Stable Plan - Discharge Summary Discharge Rx Participant: Yes New Discharge Prescriptions: New Ipratropium-Albuterol Nebulize [Duoneb 0.5 mg-3 mg/3 ml Soln] 3 ml INHALATION RT-Q2H PRN #120 each PRN Reason: Shortness Of Breath Or Wheezing predniSONE See Taper PO DIRECTED #30 tab Amoxic-Pot Clav 875-125Mg [Augmentin 875-125] 1 each PO Q12HR #5 tab Pantoprazole [Protonix] 40 mg PO AC-BRKFST #30 tab Continue Furosemide [Lasix] 20 mg PO DAILY #90 tab Metoprolol Tartrate [Lopressor] 50 mg PO BID #180 tab Amiodarone [Cordarone] 200 mg PO DAILY Fluticasone Nasal Potrero [Flonase Nasal Potrero] 1 spray EA NOSTRIL DAILY PRN PRN Reason: Allergy Symptoms Cetirizine HCl [Zyrtec] 10 mg PO DAILY PRN PRN Reason: Allergy Symptoms Warfarin [Coumadin] 2.5 mg PO MOFR Fluticasone/Umeclidin/Vilanter [Trelegy Ellipta 100-62.5-25] 1 puff INHALATION RT-DAILY Losartan [Cozaar] 12.5 mg PO DAILY #90 tab Albuterol Inhaler [Ventolin Hfa Inhaler] 1 - 2 puff INHALATION RT-Q4H PRN PRN Reason: Shortness Of Breath Warfarin [Coumadin] 5 mg PO SUTUWETHSA Discharge Medication List Fluticasone/Umeclidin/Vilanter [Trelegy Ellipta 100-62.5-25] 1 puff INHALATION RT-DAILY 06/17/23 [History] Furosemide [Lasix] 20 mg PO DAILY #90 tab 06/21/23 [Rx] Losartan [Cozaar] 12.5 mg PO DAILY #90 tab 06/21/23 [Rx] Metoprolol Tartrate [Lopressor] 50 mg PO BID #180 tab 06/21/23 [Rx] Albuterol Inhaler [Ventolin Hfa Inhaler] 1 - 2 puff INHALATION RT-Q4H PRN 08/17/23 [History] Amiodarone [Cordarone] 200 mg PO DAILY 08/17/23 [History] Warfarin [Coumadin] 5 mg PO SUTUWETHSA 08/17/23 [History] Cetirizine HCl [Zyrtec] 10 mg PO DAILY PRN 10/31/23 [History] Fluticasone Nasal Potrero [Flonase Nasal Potrero] 1 spray EA NOSTRIL DAILY PRN 10/31/23 [History] Warfarin [Coumadin] 2.5 mg PO MOFR 10/31/23 [History] Amoxic-Pot Clav 875-125Mg [Augmentin 875-125] 1 each PO Q12HR #5 tab 11/03/23 [Rx] Ipratropium-Albuterol Nebulize [Duoneb 0.5 mg-3 mg/3 ml Soln] 3 ml INHALATION RT-Q2H PRN #120 each 11/03/23 [Rx] Pantoprazole [Protonix] 40 mg PO AC-BRKFST #30 tab 11/03/23 [Rx] predniSONE See Taper PO DIRECTED #30 tab 11/03/23 [Rx] Follow up Appointment(s)/Referral(s): [facility] [NON-STAFF] - As Needed (nebulizer) Dusty Dumas DO [Primary Care Provider] - 1-2 days Diane Barth MD [STAFF PHYSICIAN] - 1 Week Discharge Disposition: HOME SELF-CARE
--- NOTE | 2023-11-03 16:15 | P.PN ---
Subjective Progress Note Date: 11/03/23 This is a 73-year-old female patient was being seen in the hospital for worseni ng shortness of breath. The patient follows up in our office regarding her COPD. She is a ex-smoker. She is currently maintained on Trelegy Ellipta regarding her COPD and using albuterol on as-needed basis. She also has history of chronic A-fib maintained on anticoagulation with warfarin. The patient started experiencing increased dyspnea cough chest tightness chest congestion and wheezing. This has been going on for the past 3 days. She had a similar episode back in July of this year and at that time, the patient was diagnosed having an RSV infection and she required a brief hospitalization. The patient has quit smoking around 20 years ago. She carries more than [id number] smo ankita history. She also has history of CHF and she has impaired LV function with systolic heart failure and ejection fraction of 25%. Current INR is at 2.7 with a hemoglobin of 13.2 and a white cell count of 4.4. BUN is at 9 with a creatinine of 0.7 and sodium levels at 136. Troponins are negative. The LFTs are normal. The patient had a chest x-ray at the time of admission that showed no acute cardiopulmonary abnormalities. Her EKG showed sinus rhythm with frequent PVCs and incomplete right bundle branch block pattern. On today's evaluation of 11/02/2023, the patient is being seen for a follow-up. The patient is known to have COPD maintained Trelegy Ellipta on outpatient basis and the patient also has issues with chronic atrial fibrillation. Patient also has CHF with impaired LV function with an ejection fraction of 25 to 30%. On today's evaluation, she is feeling better. Less short of breath and less bronchospastic compared to yesterday although she is not fully recovered. No fever. No chills. INR is at 2.3 and the patient remains on warfarin. She is currently Augmentin as an empiric antibiotic coverage for now. No other significant events overnight. The patient remains on 2 L of oxygen by nasal cannula with a pulse ox of 92%. On today's evaluation of 11/03/2023, the patient is doing well. No specific complaints. Feeling well. No chest pain. No significant cough sputum production chest tightness or wheezing. Shortness of breath is improved and the patient recovered from her COPD exacerbation. As such, the patient is being considered for discharge. She is known to have chronic A-fib. She is also known to have chronic systolic heart failure. No new labs are available from today. Her INR is at 2.2 as the patient is taking warfarin for anticoagulation. She has been maintained on Trelegy Ellipta on outpatient basis. Objective - Vital Signs Vital signs: Vital Signs Temp 98.0 F 11/03/23 07:30 Pulse 76 11/03/23 09:08 Resp 18 11/03/23 07:30 BP 162/77 11/03/23 07:30 Pulse Ox 94 L 11/03/23 08:58 FiO2 Intake & Output 11/02/23 11/03/23 11/03/23 18:59 06:59 18:59 Weight 73.4 kg Other: Voiding Method Toilet Toilet Toilet # Voids 3 1 - Exam GENERAL EXAM: Alert, very pleasant 73-year-old female, on 3 L of oxygen by nasal cannula,, comfortable not in acute respiratory distress. EYES: Normal reaction of pupils, equal size. NOSE: Clear with pink turbinates. THROAT: No erythema or exudates. NECK: No masses, no JVD. CHEST: No chest wall deformity. LUNGS: Exhalation phase of breathing. CVS: S1 and S2 normal with no audible murmur, regular rhythm. ABDOMEN: No hepatosplenomegaly, normal bowel sounds, no guarding or rigidity. SPINE: No scoliosis or deformity SKIN: No rashes CENTRAL NERVOUS SYSTEM: No focal deficits, tone is normal in all 4 extremities. EXTREMITIES: There is no peripheral edema. No clubbing, no cyanosis. Peripheral pulses are intact. - Labs CBC & Chem 7: 11/01/23 04:34 11/01/23 04:34 Labs: Abnormal Lab Results - Last 24 Hours (Table) 11/02/23 11/02/23 11/02/23 Range/Units 11:40 16:21 21:19 PT (10.0-12.5) sec INR (<1.2) POC Glucose (mg/dL) 233 H 142 H 217 H (70-110) mg/dL 11/03/23 11/03/23 Range/Units 05:58 06:06 PT 22.2 H (10.0-12.5) sec INR 2.2 H (<1.2) POC Glucose (mg/dL) 184 H (70-110) mg/dL Microbiology - Last 24 Hours (Table) 10/31/23 19:45 Blood Culture - Preliminary Blood Assessment and Plan Plan: Acute hypoxemic respiratory failure, currently on 2 L of oxygen by nasal cannula and this is related to the COPD exacerbation. COPD exacerbation. Rule out underlying tracheobronchitis. No evidence of pneumonia based on today's chest x-ray.. The patient has been maintained on Trelegy Ellipta on an outpatient basis regarding her COPD. Clinically improving and less short of breath compared to yesterday systolic congestive heart failure previous echocardiogram revealed impaired left ventricular systolic function with ejection fraction of 25 to 30% Chronic atrial fibrillation, current rhythm is sinus and the patient has a normal sinus rhythm with a RBB pattern and frequent PVCs. Acute hypercapnic respiratory failure secondary RSV infection in Jul 2023 Former smoker however quit 20 years ago and she has 40 pyear smoking Plan Clinically improving and less bronchospastic and wheezy and the patient will be discharged home today on a prednisone burst taper. Resume Trelegy Ellipta at home Prednisone burst taper Resume home medications Daily PT/INR monitoring and monitored and adjusted warfarin dose, INR therapeutic is therapeutic No signs of any decompensated heart failure at this point in time We will continue to follow on outpatient basis
[2023-11-03] MEDS ORDERED: WARFARIN 2 MG TAB PO ONE (18:00)
== END 2023-11-03 12:50 | disposition home or self-care (01) | DRG 190 ==
LOC: EC 18:50 → 4SSUR 21:04
PROVIDERS: ADMIT Internal Medicine; ATTEND Internal Medicine
DX: J44.1 Chronic obstructive pulmonary disease with (acute) exacerbation (principal); J96.21 Acute and chronic respiratory failure with hypoxia; J96.22 Acute and chronic respiratory failure with hypercapnia; I50.22 Chronic systolic (congestive) heart failure; I48.20 Chronic atrial fibrillation, unspecified; R79.1 Abnormal coagulation profile; T45.515A Adverse effect of anticoagulants, initial encounter; I45.10 Unspecified right bundle-branch block; I11.0 Hypertensive heart disease with heart failure; E87.6 Hypokalemia; D75.89 Other specified diseases of blood and blood-forming organs; Z79.01 Long term (current) use of anticoagulants; Z79.899 Other long term (current) drug therapy; Z87.891 Personal history of nicotine dependence; Z11.52 Encounter for screening for COVID-19
CPT/HCPCS: 36415; 71046; 80048; 80053; 83605; 83735; 84484; 85025; 85027; 85610; 85730; 87040; 87636; 93005; 93306; 94640; 94760; 96365; 96372; 96375; 99291

== ENCOUNTER 2024-08-28 17:48 | Inpatient (IN) | payer MEDICARE ==
--- NOTE | 2024-08-28 18:01 | ED ---
General Adult HPI - General Stated complaint: MONCHO Time Seen by Provider: 08/28/24 17:48 Source: patient, RN notes reviewed, old records reviewed - History of Present Illness Initial comments: This is a 74-year-old female with a past medical history significant for COPD and congestive heart failure. Patient states for the last week she has been getting worse and worse with her breathing and she also has been having a significant cough. Patient was unable to continue at home she was called the ambulance. According to EMS the patient was in the tripod position and breathing quite heavy and they finally got around of BiPAP which considerably improved her breathing and she is feeling much more comfortable. Patient denies any chest pain or palpitations. Patient denies any back pain. Patient has abdominal pain patient has nausea vomiting diarrhea. Patient states swelling in her feet has gotten considerably worse over the last week. - Related Data Home Medications Medication Instructions Recorded Confirmed Albuterol Inhaler [Ventolin Hfa 2 puff INHALATION RT-Q4H 08/17/23 08/28/24 Inhaler] Warfarin [Coumadin] 2.5 mg PO SUTUWEFRSA 08/17/23 08/28/24 Warfarin [Coumadin] 5 mg PO MOTH 10/31/23 08/28/24 Amiodarone [Cordarone] 100 mg PO DAILY 08/28/24 08/28/24 Budesonide/Glycopyr/Formoterol 2 puff INHALATION RT-BID 08/28/24 08/28/24 [Breztri Aerosphere Inhaler] Ipratropium-Albuterol Nebulize 3 ml INHALATION RT-QID 08/28/24 08/28/24 [Duoneb 0.5 mg-3 mg/3 ml Soln] Levothyroxine Sodium [Synthroid] 100 mcg PO DAILY 08/28/24 08/28/24 Spironolactone [Aldactone] 25 mg PO DAILY 08/28/24 08/28/24 Previous Rx's Medication Instructions Recorded Furosemide [Lasix] 20 mg PO DAILY #90 tab 06/21/23 Losartan [Cozaar] 12.5 mg PO DAILY #90 tab 06/21/23 Metoprolol Tartrate [Lopressor] 50 mg PO BID #180 tab 06/21/23 Allergies Allergy/AdvReac Type Severity Reaction Status Date / Time No Known Allergies Allergy Verified 08/28/24 18:46 Review of Systems ROS Statement: Those systems with pertinent positive or pertinent negative responses have been documented in the HPI. ROS Other: All systems not noted in ROS Statement are negative. Past Medical History Past Medical History: Atrial Fibrillation, Heart Failure, COPD, Hypertension History of Any Multi-Drug Resistant Organisms: None Reported Past Surgical History: Section, Hysterectomy Additional Past Surgical History / Comment(s): cataracts Past Anesthesia/Blood Transfusion Reactions: No Reported Reaction Past Psychological History: No Psychological Hx Reported Smoking Status: Former smoker Past Alcohol Use History: Daily Past Drug Use History: Marijuana - Past Family History Mother Additional Family Medical History / Comment(s): Wegeners disease Father Family Medical History: Congestive Heart Failure (CHF) General Exam - General Exam Comments Initial Comments: GENERAL: Patient is well-developed and well-nourished. Patient is nontoxic and well-hydrated and is in moderate distress. ENT: Neck is soft and supple. No significant lymphadenopathy is noted. Oropharynx is clear. Moist mucous membranes. Neck has full range of motion without eliciting any pain. EYES: The sclera were anicteric and conjunctiva were pink and moist. Extraocular mov ements were intact and pupils were equal round and reactive to light. Eyelids were unremarkable. PULMONARY: Patient has diminished breath sounds CARDIOVASCULAR: There is a regular rate and rhythm without any murmurs gallops or rubs. ABDOMEN: Soft and nontender with normal bowel sounds. No palpable organomegaly was noted. There is no palpable pulsatile mass. SKIN: Skin is clear with no lesions or rashes and otherwise unremarkable. NEUROLOGIC: Patient is alert and oriented x3. Cranial nerves II through XII are grossly intact. Motor and sensory are also intact. Normal speech, volume and content. Symmetrical smile. MUSCULOSKELETAL: Normal extremities with adequate strength and full range of motion. 2+ edema bilaterally LYMPHATICS: No significant lymphadenopathy is noted PSYCHIATRIC: Normal psychiatric evaluation. Course Vital Signs 08/28/24 08/28/24 08/28/24 17:50 17:56 18:00 Temperature 101.2 F H Pulse Rate 105 H Respiratory 45 H Rate Blood Pressure 142/82 O2 Sat by Pulse 99 Oximetry Fraction of 100 70 Inspired Oxygen (FIO2) 08/28/24 08/28/24 08/28/24 18:07 18:35 18:47 Temperature Pulse Rate 96 100 100 Respiratory 36 H Rate Blood Pressure 145/89 O2 Sat by Pulse 99 Oximetry Fraction of Inspired Oxygen (FIO2) 08/28/24 08/28/24 19:20 19:30 Temperature 99.6 F Pulse Rate 95 Respiratory 18 Rate Blood Pressure 140/78 O2 Sat by Pulse 99 Oximetry Fraction of 50 Inspired Oxygen (FIO2) Medical Decision Making - Medical Decision Making EKG is interpreted by myself but EKG shows a sinus tachycardia at 101 bpm NV 176 QRS 121 QT interval 358 QTc is 416. Patient's EKG shows no ST segment elevation or depression. Was pt. sent in by a medical professional or institution (, [facility], FAMILY DEVELOPMENT SPECIALIST, urgent care, hospital, or assisted...) When possible be specific @ -No Did you speak to anyone other than the patient for history (EMS, parent, family, police, friend...)? What history was obtained from this source @ -No Did you review nursing and triage notes (agree or disagree)? Why? @ -I reviewed and agree with nursing and triage notes Were old charts reviewed (outside hosp., previous admission, EMS record, old EKG, old radiological studies, urgent care reports/EKG's, assisted records)? Report findings @ -No old charts were reviewed Differential Diagnosis? @ -Differential Dyspnea: Coronary syndrome, arrhythmia, tamponade, asthma, COPD, pulmonary embolism, pneumonia, pneumothorax, pulmonary effusion, anaphylaxis, diabetic ketoacidosis, flailed chest, pulmonary contusion, diaphragmatic rupture, anemia, neuromuscular, this is not meant to be an all-inclusive list. EKG interpreted by me (3pts min.). @ -As above X-rays interpreted by me (1pt min.). @ -Chest x-ray shows pulmonary edema CT interpreted by me (1pt min.). @ -None done U/S interpreted by me (1pt. min.). @ -None done What testing was considered but not performed or refused? (CT, X-rays, U/S, labs)? Why? @ -None What meds were considered but not given or refused? Why? @ -None Did you discuss the management of the patient with other professionals (professionals i.e. [facility]Y Zamora, FAMILY DEVELOPMENT SPECIALIST, lab, RT, psych nurse, nephrology social worker, title lawyer, teacher, identification officer, outsole caser)? Give summary @ -I spoke with sound physicians agreed admit the patient admit the patient wrote admitting orders Was smoking cessation discussed for >3mins.? @ -No Was critical care preformed (if so, how long)? @ -35 minutes Were there social determinants of health that impacted care today? How? (Homelessness, low income, unemployed, alcoholism, drug addiction, transportation, low edu. Level, literacy, decrease access to med. care, senior care, rehab)? @ -No Was there de-escalation of care discussed even if they declined (Discuss DNR or withdrawal of care, Hospice)? DNR status @ -No What co-morbidities impacted this encounter? (DM, HTN, Smoking, COPD, CAD, Cancer, CVA, ARF, Chemo, Hep., AIDS, mental health diagnosis, sleep apnea, morbid obesity)? @ -None Was patient admitted / discharged? Hospital course, mention meds given and route, prescriptions, significant lab abnormalities, going to OR and other pertinent info. @ -Patient was placed on BiPAP as soon as she got here she was feeling much better on BiPAP. Patient eventually want to be taken off the BiPAP and so she was. Patient was flu positive patient also had elevated BNP and pulmonary edema on x-ray and a low magnesium the patient's liver enzymes are also elevated. Patient was on 4 L and resting comfortably and satting 96% patient did receive Lasix also received breathing treatments and steroids because she has a COPD her and initially her breath sounds were significantly diminished I will admit to sound physicians Undiagnosed new problem with uncertain prognosis? @ -No Drug Therapy requiring intensive monitoring for toxicity (Heparin, Nitro, Insulin, Cardizem)? @ -No Were any procedures done? @ -No Diagnosis/symptom? @ -Pulmonary edema Acute, or Chronic, or Acute on Chronic? @ -Acute Uncomplicated (without systemic symptoms) or Complicated (systemic symptoms)? @ -Complicated Side effects of treatment? @ -No Exacerbation, Progression, or Severe Exacerbation? @ -No Poses a threat to life or bodily function? How? (Chest pain, [place], [place], pneumonia, PE, COPD, DKA, ARF, appy, cholecystitis, CVA, Diverticulitis, Homicidal, Suicidal, threat to staff... and all critical care pts) @ -Yes this can lead to hypoxia and endorgan dysfunction Diagnosis/symptom? @ -Hypomagnesemia Acute, or Chronic, or Acute on Chronic? @ -Acute Uncomplicated (without systemic symptoms) or Complicated (systemic symptoms)? @ -Uncomplicated Side effects of treatment? @ -None Exacerbation, Progression, or Severe Exacerbation] @ -No Poses a threat to life or bodily function? @ -No Diagnosis/symptom? @ -Flu Acute, or Chronic, or Acute on Chronic? @ -Acute Uncomplicated (without systemic symptoms) or Complicated (systemic symptoms)? @ -Uncomplicated Side effects of treatment? @ -None Exacerbation, Progression, or Severe Exacerbation] @ -No Poses a threat to life or bodily function? @ -No Diagnosis/symptom? @ -Hyperbilirubinemia and transaminitis Acute, or Chronic, or Acute on Chronic? @ -Acute Uncomplicated (without systemic symptoms) or Complicated (systemic symptoms)? @ -Complicated Side effects of treatment? @ -None Exacerbation, Progression, or Severe Exacerbation] @ -No Poses a threat to life or bodily function? @ -No - Lab Data Result diagrams: 08/28/24 18:09 08/28/24 18:09 Lab Results 08/28/24 08/28/24 08/28/24 Range/Units 18:09 18:09 18:09 WBC 10.2 (3.8-10.6) k/uL RBC 4.14 (3.80-5.40) m/uL Hgb 14.5 (11.4-16.0) gm/dL Hct 42.9 (34.0-46.0) % MCV 103.7 H (80.0-100.0) fL MCH 34.9 (25.0-35.0) pg MCHC 33.7 (31.0-37.0) g/dL RDW 14.7 (11.5-15.5) % Plt Count 151 (150-450) k/uL MPV 10.6 Neutrophils % 88 % Lymphocytes % 6 % Monocytes % 5 % Eosinophils % 0 % Basophils % 0 % Neutrophils # 8.9 H (1.3-7.7) k/uL Lymphocytes # 0.6 L (1.0-4.8) k/uL Monocytes # 0.5 (0-1.0) k/uL Eosinophils # 0.0 (0-0.7) k/uL Basophils # 0.0 (0-0.2) k/uL Manual Slide Review Performed Large Platelets Present Polychromasia Present Macrocytosis Slight PT 27.3 H (10.0-12.5) sec INR 2.7 H (<1.2) APTT 24.5 (22.0-30.0) sec Sodium 131 L (137-145) mmol/L Potassium 3.9 (3.5-5.1) mmol/L Chloride 87 L (98-107) mmol/L Carbon Dioxide 30 (22-30) mmol/L Anion Gap 14 mmol/L BUN 18 H (7-17) mg/dL Creatinine 0.77 (0.52-1.04) mg/dL Est GFR (CKD-EPI)AfAm 89 (>60 ml/min/1.73 sqM) Est GFR (CKD-EPI)NonAf 77 (>60 ml/min/1.73 sqM) Glucose 117 H (74-99) mg/dL Plasma Lactic Acid Luis (0.7-2.0) mmol/L Calcium 8.7 (8.4-10.2) mg/dL Magnesium 1.3 L (1.6-2.3) mg/dL Total Bilirubin 3.5 H (0.2-1.3) mg/dL AST 77 H (14-36) U/L ALT 48 H (4-34) U/L Alkaline Phosphatase 145 H (38-126) U/L Troponin I (0.000-0.034) ng/mL NT-Pro-B Natriuret Pep 8330 pg/mL Total Protein 7.3 (6.3-8.2) g/dL Albumin 3.7 (3.5-5.0) g/dL Influenza Type A (PCR) (Not Detectd) Influenza Type B (PCR) (Not Detectd) RSV (PCR) (Not Detectd) SARS-CoV-2 (PCR) (Not Detectd) 08/28/24 08/28/24 08/28/24 Range/Units 18:09 18:09 18:12 WBC (3.8-10.6) k/uL RBC (3.80-5.40) m/uL Hgb (11.4-16.0) gm/dL Hct (34.0-46.0) % MCV (80.0-100.0) fL MCH (25.0-35.0) pg MCHC (31.0-37.0) g/dL RDW (11.5-15.5) % Plt Count (150-450) k/uL MPV Neutrophils % % Lymphocytes % % Monocytes % % Eosinophils % % Basophils % % Neutrophils # (1.3-7.7) k/uL Lymphocytes # (1.0-4.8) k/uL Monocytes # (0-1.0) k/uL Eosinophils # (0-0.7) k/uL Basophils # (0-0.2) k/uL Manual Slide Review Large Platelets Polychromasia Macrocytosis PT (10.0-12.5) sec INR (<1.2) APTT (22.0-30.0) sec Sodium (137-145) mmol/L Potassium (3.5-5.1) mmol/L Chloride (98-107) mmol/L Carbon Dioxide (22-30) mmol/L Anion Gap mmol/L BUN (7-17) mg/dL Creatinine (0.52-1.04) mg/dL Est GFR (CKD-EPI)AfAm (>60 ml/min/1.73 sqM) Est GFR (CKD-EPI)NonAf (>60 ml/min/1.73 sqM) Glucose (74-99) mg/dL Plasma Lactic Acid Luis 3.5 H* (0.7-2.0) mmol/L Calcium (8.4-10.2) mg/dL Magnesium (1.6-2.3) mg/dL Total Bilirubin (0.2-1.3) mg/dL AST (14-36) U/L ALT (4-34) U/L Alkaline Phosphatase (38-126) U/L Troponin I <0.012 (0.000-0.034) ng/mL NT-Pro-B Natriuret Pep pg/mL Total Protein (6.3-8.2) g/dL Albumin (3.5-5.0) g/dL Influenza Type A (PCR) Detected A (Not Detectd) Influenza Type B (PCR) Not Detected (Not Detectd) RSV (PCR) Not Detected (Not Detectd) SARS-CoV-2 (PCR) Not Detected (Not Detectd) Disposition Clinical Impression: Acute pulmonary edema, Influenza, Hypomagnesemia, Transaminitis, Hyperbilirubinemia Disposition: ADMITTED IP TO THIS HOSP Referrals: Dusty Dumas DO [Primary Care Provider] - 1-2 days Time of Disposition: 20:47
[2024-08-28] MEDS: IBUPROFEN 600 MG TAB PO STA (18:06)
[2024-08-28] MEDS: ALBUTEROL NEBULIZED 2.5 MG/3 ML INHALATION STA (18:06)
[2024-08-28] MEDS: IPRATROPIUM 0.5 MG/2.5 ML NEBU INHALATION STA (18:07)
[2024-08-28] MEDS: ACETAMINOPHEN TAB 500 MG TAB PO STA (18:07)
[2024-08-28] MEDS: methylPREDNISolone SOD SUCCI 125 MG/2 ML VIAL IV STA (18:15)
[2024-08-28] MEDS: FUROSEMIDE 10 MG/ML 4 ML VIAL IV STA (18:18)
[2024-08-28 18:26] LABS: Basophils % (A) 0 %; Eosinophils % (A) 0 %; HCT 42.9 % (34.0-46.0); HGB 14.5 gm/dL (11.4-16.0); Lymphocytes # (A) 0.6 k/uL (1.0-4.8); Lymphocytes % (A) 6 %; MCH 34.9 pg (25.0-35.0); MCHC 33.7 g/dL (31.0-37.0); MCV 103.7 fL (80.0-100.0); Macrocytosis Slight; Mean Platelet Volume 10.6; Monocytes # (A) 0.5 k/uL (0-1.0); Monocytes % (A) 5 %; Neutrophils # (A) 8.9 k/uL (1.3-7.7); Neutrophils % (A) 88 %; RBC 4.14 m/uL (3.80-5.40); RDW 14.7 % (11.5-15.5); WBC 10.2 k/uL (3.8-10.6)
[2024-08-28 18:28] LABS: INR 2.7 (<1.2); Partial Thromboplastin Time 24.5 sec (22.0-30.0); Prothrombin Time 27.3 sec (10.0-12.5)
[2024-08-28 18:37] LABS: ALT 48 U/L (4-34); AST 77 U/L (14-36); African American GFR (CKD) 89 (>60 ml/min/1.73 sqM); Albumin 3.7 g/dL (3.5-5.0); Alkaline Phosphatase 145 U/L (38-126); Anion Gap 14 mmol/L; Blood Urea Nitrogen 18 mg/dL (7-17); Calcium 8.7 mg/dL (8.4-10.2); Carbon Dioxide 30 mmol/L (22-30); Chloride 87 mmol/L (98-107); Glucose 117 mg/dL (74-99); Magnesium 1.3 mg/dL (1.6-2.3); Non-African American GFR(CKD) 77 (>60 ml/min/1.73 sqM); Potassium 3.9 mmol/L (3.5-5.1); Sodium 131 mmol/L (137-145); Total Bilirubin 3.5 mg/dL (0.2-1.3); Total Protein 7.3 g/dL (6.3-8.2)
[2024-08-28 18:44] LABS: NT-Pro-B-Type Natriuretic Pept 8330 pg/mL
[2024-08-28 18:57] LABS: Influenza A Detected (Not Detectd); Influenza B Not Detected (Not Detectd); RSV Not Detected (Not Detectd)
[2024-08-28 19:01] LABS: Large Platelets Present
[2024-08-28 19:02] LABS: Polychromasia Present
[2024-08-28 19:04] LABS: Platelet Count 151 k/uL (150-450)
--- NOTE | 2024-08-28 20:01 | XR ---
EXAMINATION TYPE: XR chest 1V portable DATE OF EXAM: 08/28/2024 6:34 PM COMPARISON: 10/31/2023 CLINICAL INDICATION: Female, 74 years old with history of difficulty breathing, TECHNIQUE: XR chest 1V portable view(s) obtained. FINDINGS: The heart size is slightly prominent.. The pulmonary vasculature is prominent. Diffuse increased lung markings are present. Correlate for congestive heart failure IMPRESSION: 1. Cardiomegaly with prominent pulmonary vascular markings and increased lung markings. Correlate for congestive heart failure. [facility], Workstation: [facility], 08/28/2024 7:59 PM
[2024-08-28] MEDS ORDERED: NALOXONE 0.4 MG/ML 1 ML VIAL IVP PRN (20:49)
[2024-08-28] MEDS: MAGNESIUM SULFATE-D5W PMX 1 GM in DEXTROSE/WATER 1 100ML.BAG IVPB SCH (21:14)
[2024-08-28] MEDS: METOPROLOL TARTRATE 50 MG TAB PO SCH (21:14)
--- NOTE | 2024-08-29 00:25 | P.HPIM ---
History of Present Illness H&P Date: 08/28/24 Chief Complaint: difficulty breathing Patient is a 74-year-old female with past medical history significant for COPD, CHF, atrial fibrillation on Coumadin, and hypertension presents today for 1 week worsening of breathing as well as significant cough. She wears 2 L of oxygen at night but says that she has had to wear 2 L 24/7 for the past week. About 5 days ago she saw Dr. Lorenzo and he started her on spironolactone due to leg swelling and fluid retention. She states that the leg swelling has improved since. She has experienced COPD exacerbations like this before. Of note her granddaughter had the flu last week. At the time of this interview, she states that she is feeling better after receiving BiPAP, Lasix, and breathing treatments. Initially in the ED: Albuterol nebulizer 5 mg x 1, Lasix IV 40 mg x 1, ipratropium nebulized 0.5 mg x 1, Solu-Medrol IV 125 mg x 1 Initial EKG: Sinus tachycardia with a ventricular rate of 101 bpm Initial chest x-ray: Cardiomegaly with prominent pulmonary vascular markings and increased lung markings, correlate for congestive heart failure Review of Systems Constitutional: Denies chills, Denies fever Cardiovascular: Reports dyspnea on exertion, Reports leg edema, Reports orthopnea, Reports shortness of breath, Denies chest pain, Denies palpitations Respiratory: Reports cough with sputum (dark yellow), Reports dyspnea, Reports home oxygen (2 L) Gastrointestinal: Denies abdominal pain, Denies BRBPR, Denies nausea, Denies vomiting Genitourinary: Denies hematuria Past Medical History Past Medical History: Atrial Fibrillation, Heart Failure, COPD, Hypertension History of Any Multi-Drug Resistant Organisms: None Reported Past Surgical History: Section, Hysterectomy Additional Past Surgical History / Comment(s): cataracts Past Anesthesia/Blood Transfusion Reactions: No Reported Reaction Past Psychological History: No Psychological Hx Reported Smoking Status: Former smoker Past Alcohol Use History: Daily Past Drug Use History: Marijuana - Past Family History Mother Additional Family Medical History / Comment(s): Wegeners disease Father Family Medical History: Congestive Heart Failure (CHF) Medications and Allergies Home Medications Medication Instructions Recorded Confirmed Type Furosemide [Lasix] 20 mg PO DAILY #90 tab 06/21/23 08/28/24 Rx Losartan [Cozaar] 12.5 mg PO DAILY #90 tab 06/21/23 08/28/24 Rx Metoprolol Tartrate [Lopressor] 50 mg PO BID #180 tab 06/21/23 08/28/24 Rx Albuterol Inhaler [Ventolin Hfa 2 puff INHALATION RT-Q4H 08/17/23 08/28/24 History Inhaler] Warfarin [Coumadin] 2.5 mg PO SUTUWEFRSA 08/17/23 08/28/24 History Warfarin [Coumadin] 5 mg PO MOTH 10/31/23 08/28/24 History Amiodarone [Cordarone] 100 mg PO DAILY 08/28/24 08/28/24 History Budesonide/Glycopyr/Formoterol 2 puff INHALATION RT-BID 08/28/24 08/28/24 History [Breztri Aerosphere Inhaler] Ipratropium-Albuterol Nebulize 3 ml INHALATION RT-QID 08/28/24 08/28/24 History [Duoneb 0.5 mg-3 mg/3 ml Soln] Levothyroxine Sodium [Synthroid] 100 mcg PO DAILY 08/28/24 08/28/24 History Spironolactone [Aldactone] 25 mg PO DAILY 08/28/24 08/28/24 History Allergies Allergy/AdvReac Type Severity Reaction Status Date / Time No Known Allergies Allergy Verified 08/28/24 18:46 Physical Exam Vitals: Vital Signs Temp Pulse Resp BP Pulse Ox FiO2 08/28/24 19:30 99.6 F 95 18 140/78 99 08/28/24 19:20 50 08/28/24 18:47 100 36 H 145/89 99 08/28/24 18:35 100 08/28/24 18:07 96 08/28/24 18:00 70 08/28/24 17:56 100 08/28/24 17:50 101.2 F H 105 H 45 H 142/82 99 Intake and Output 08/28/24 08/28/24 08/28/24 06:59 14:59 22:59 Other: Weight 71.214 kg - Constitutional General appearance: no acute distress - Respiratory Respiratory: bilateral: wheezing (expiratory) - Cardiovascular Rhythm: regular (distant) leg Peripheral Edema: bilateral: 1+ (to the thigh) - Gastrointestinal General gastrointestinal: normal bowel sounds, no tenderness - Psychiatric Psychiatric: A&O x's 3, appropriate affect, intact judgment & insight Results CBC & Chem 7: 08/28/24 18:09 08/28/24 18:09 Labs: Abnormal Lab Results - Last 24 Hours (Table) 08/28/24 08/28/24 08/28/24 Range/Units 18:09 18:09 18:09 MCV 103.7 H (80.0-100.0) fL Neutrophils # 8.9 H (1.3-7.7) k/uL Lymphocytes # 0.6 L (1.0-4.8) k/uL PT 27.3 H (10.0-12.5) sec INR 2.7 H (<1.2) Sodium 131 L (137-145) mmol/L Chloride 87 L (98-107) mmol/L BUN 18 H (7-17) mg/dL Glucose 117 H (74-99) mg/dL Plasma Lactic Acid Luis (0.7-2.0) mmol/L Magnesium 1.3 L (1.6-2.3) mg/dL Total Bilirubin 3.5 H (0.2-1.3) mg/dL AST 77 H (14-36) U/L ALT 48 H (4-34) U/L Alkaline Phosphatase 145 H (38-126) U/L Influenza Type A (PCR) (Not Detectd) 08/28/24 08/28/24 Range/Units 18:09 18:12 MCV (80.0-100.0) fL Neutrophils # (1.3-7.7) k/uL Lymphocytes # (1.0-4.8) k/uL PT (10.0-12.5) sec INR (<1.2) Sodium (137-145) mmol/L Chloride (98-107) mmol/L BUN (7-17) mg/dL Glucose (74-99) mg/dL Plasma Lactic Acid Luis 3.5 H* (0.7-2.0) mmol/L Magnesium (1.6-2.3) mg/dL Total Bilirubin (0.2-1.3) mg/dL AST (14-36) U/L ALT (4-34) U/L Alkaline Phosphatase (38-126) U/L Influenza Type A (PCR) Detected A (Not Detectd) Thrombosis Risk Factor Assmnt - DVT/VTE Prophylaxis DVT/VTE Prophylaxis: Pharmacologic Prophylaxis ordered - Choose All That Apply Any of the Below Risk Factors Present?: Yes Each Factor Represents 1 point: Abnormal pulmonary function (COPD), Obesity (BMI >25), Swollen legs (current) Each Risk Factor Represents 2 Points: Age 61-74 years Thrombosis Risk Factor Assessment Total Risk Factor Score: 5 Thrombosis Risk Factor Assessment Level: High Risk Assessment and Plan Assessment: Patient is a 74-year-old female with past medical history significant for COPD, CHF with reduced ejection fraction, atrial fibrillation on Coumadin, and hypertension admitted for acute CHF exacerbation. #. Sepsis, criteria met: Tachycardic, tachypneic, lactic acidosis on admission #. Acute exacerbation of CHF with reduced ejection fraction, EF 40-45% (11/03/2023) #. Acute COPD exacerbation #. Hypomagnesemia #. Transaminitis #. Influenza A #. Hypertension #. Paroxysmal atrial fibrillation maintained on warfarin #. Hypothyroidism Plan: #. Sepsis, criteria met: Tachycardic, tachypneic, lactic acidosis on admission Initial lactic acid 3.5, repeat is 2 Acute on chronic hypoxic respiratory failure multifactorial , pulmonary congestion , and copd #. Acute exacerbation of CHF with reduced ejection fraction, EF 40-45% (11/03/2023) Chest x-ray: Cardiomegaly with prominent pulmonary vascular markings and increased lung markings, correlate for congestive heart failure Given IV Lasix 40 mg in ED IV Lasix 40 mg every 12 hours Spironolactone 25 mg daily #. COPD exacerbation Oxygen supplementation as needed to maintain O2 saturation >88% DuoNebs 4 times daily Solu-Medrol IV 60 mg every 6 hours Spiriva daily Symbicort 160-4.5 mcg twice daily no tamiflu as symptoms started a 1 week ago no antibiotics as this is thought to be precipitated by acute viral infection influenza A #. Hypomagnesemia Initial magnesium 1.3 Replete magnesium 1 g x 2 repeat level s in am #. Transaminitis Total bilirubin 3.5, AST 77, ALT 48, alkaline phosphatase 145 Repeat CMP in the morning #. Influenza A Patient not currently symptomatic no tamiflu as symptoms started a 1 week ago #. Hypertension Lopressor 50 mg twice daily Cozaar 12.5 mg daily #. Paroxysmal atrial fibrillation maintained on warfarin Continue warfarin, pharmacy to dose goal INR 2-3 Amiodarone 100 mg daily #. Hypothyroidism Levothyroxine 100 mcg daily DVT ppx on coumadin full code I have seen and evaluated the patient today. I Discussed the case with the resident and agree with the resident's findings I edited the assessment and plan as necessary as documented in the resident's note.
[2024-08-29] MEDS: methylPREDNISolone SOD SUCCI 125 MG/2 ML VIAL IV SCH ×2 (00:41→16:22)
[2024-08-29] MEDS: NITROGLYCERIN OINT 1 INCH/GM PACKET TOPICAL SCH (00:41)
[2024-08-29] MEDS ORDERED: FUROSEMIDE 10 MG/ML 4 ML VIAL IV SCH ×2 (02:00)
[2024-08-29] MEDS: LORazepam 2 MG/ML INJ IV PRN ×3 (04:13→23:21)
[2024-08-29] MEDS: LEVOTHYROXINE 100 MCG TAB PO SCH (06:50)
[2024-08-29 07:06] LABS: INR 2.3 (<1.2); Prothrombin Time 23.2 sec (10.0-12.5)
[2024-08-29] MEDS: PANTOPRAZOLE 40 MG TABLET PO SCH (07:17)
[2024-08-29 07:21] LABS: ALT 59 U/L (4-34); AST 83 U/L (14-36); African American GFR (CKD) 85 (>60 ml/min/1.73 sqM); Albumin 3.2 g/dL (3.5-5.0); Alkaline Phosphatase 119 U/L (38-126); Anion Gap 8 mmol/L; Blood Urea Nitrogen 21 mg/dL (7-17); Calcium 8.3 mg/dL (8.4-10.2); Carbon Dioxide 37 mmol/L (22-30); Chloride 91 mmol/L (98-107); Glucose 149 mg/dL (74-99); Non-African American GFR(CKD) 74 (>60 ml/min/1.73 sqM); Potassium 3.5 mmol/L (3.5-5.1); Sodium 136 mmol/L (137-145); Total Bilirubin 2.5 mg/dL (0.2-1.3); Total Protein 6.6 g/dL (6.3-8.2)
[2024-08-29] MEDS: SYMBICORT 160-4.5 MCG INHALER INHALATION SCH (07:53)
[2024-08-29] MEDS: IPRATROPIUM-ALBUTEROL 3 ML NEB INHALATION SCH (07:53)
[2024-08-29] MEDS: TIOTROPIUM 2.5 MCG INHALER INHALATION SCH (07:54)
[2024-08-29] MEDS: LOSARTAN 25 MG TAB PO SCH (08:09)
[2024-08-29] MEDS: SPIRONOLACTONE 25 MG TAB PO SCH (08:09)
[2024-08-29] MEDS: AMIODARONE 100 MG TAB PO SCH (08:09)
[2024-08-29] MEDS: FUROSEMIDE 10 MG/ML 4 ML VIAL IV SCH (08:09)
[2024-08-29] MEDS: DAPAGLIFLOZIN PROPANEDIOL 10 MG TABLET PO SCH (10:09)
--- NOTE | 2024-08-29 11:27 | P.CRDCN ---
History of Present Illness History of present illness: HISTORY OF PRESENT ILLNESS: This is a 74-year-old female with a past medical history significant for persistent atrial fibrillation, valvular heart disease, congestive heart failure, and nonischemic cardiomyopathy. Patient follows in the office with Dr. Ring. We have been asked to see the patient in consultation for CHF. Patient examined at the bedside in the emergency room. Patient states over the past few weeks she has been noticing increased lower extremity edema and mild shortness of breath. 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 She states despite that she continued to have shortness of breath. Patient presented to the hospital for further evaluation. Patient was found to be positive for influenza. She was also found to be in acute CHF and was started on IV diuretics. She continues to report shortness of breath this morning although improved. She reports a cough with thick yellow sputum production. She denies any chest pain or pressure. DIAGNOSTICS: - EKG reveals sinus tachycardia with no signs of acute ischemia. - Chest xray with prominent pulmonary vascular markings. Correlate for CHF. - Most recent echocardiogram obtained in October 2023 revealed ejection fraction 40 to 45%, moderate MR, moderate TR - Patient underwent Lexiscan stress test in July 2023 revealing nonischemic cardiomyopathy and no reversible perfusion defects noted. REVIEW OF SYSTEMS: At the time of my exam: CONSTITUTIONAL: Denies fever or chills. HEENT: Denies blurred vision, vision changes, or eye pain. Denies hemoptysis CARDIOVASCULAR: Denies chest pain. Denies orthopnea. Denies PND. Denies palpitations RESPIRATORY: Denies shortness of breath. GASTROINTESTINAL: Denies abdominal pain. Denies nausea or vomiting. HEMATOLOGIC: Denies bleeding disorders. GENITOURINARY: Denies any blood in urine. SKIN: Denies pruitis. Denies rash. PHYSICAL EXAM: VITAL SIGNS: Reviewed. GENERAL: Well-developed in no acute distress. HEENT: Head is normocephalic. Pupils are equal, round. Sclerae anicteric. Mucous membranes of the mouth are moist. Neck supple. No JVD or thyromegaly LUNGS: Respirations even and unlabored. Lungs with expiratory wheezing bilaterally HEART: Regular rate and rhythm. S1 and S2 heard. ABDOMEN: Soft. Nondistended. Nontender. EXTREMITIES: Normal range of motion. No clubbing or cyanosis. Peripheral pulses intact. No lower extremity edema NEUROLOGIC: Awake and alert. Oriented x 3. ASSESSMENT: Acute influenza A Shortness of breath Acute on chronic heart failure with reduced EF Paroxysmal atrial fibrillation, on Coumadin outpatient History of nonischemic cardiomyopathy Hypertension Hyperlipidemia Moderate mitral regurgitation PLAN: Obtain 2D echo to assess cardiac structure and function Resume home cardiac medications Continue anticoagulation with Coumadin. Monitor INR. Continue IV Lasix Daily weights, accurate intake and output, and monitoring of kidney function Further recommendations pending patient course Nurse practitioner note has been reviewed by physician. Signing provider agrees with the documented findings, assessment, and plan of care documented by JINRIKISHA DRIVER as a scribe. Past Medical History Past Medical History: Atrial Fibrillation, Heart Failure, COPD, Hypertension History of Any Multi-Drug Resistant Organisms: None Reported Past Surgical History: Section, Hysterectomy Additional Past Surgical History / Comment(s): cataracts Past Anesthesia/Blood Transfusion Reactions: No Reported Reaction Past Psychological History: No Psychological Hx Reported Smoking Status: Former smoker Past Alcohol Use History: Daily Past Drug Use History: Marijuana - Past Family History Mother Additional Family Medical History / Comment(s): Wegeners disease Father Family Medical History: Congestive Heart Failure (CHF) Medications and Allergies Home Medications Medication Instructions Recorded Confirmed Type Furosemide [Lasix] 20 mg PO DAILY #90 tab 06/21/23 08/28/24 Rx Losartan [Cozaar] 12.5 mg PO DAILY #90 tab 06/21/23 08/28/24 Rx Metoprolol Tartrate [Lopressor] 50 mg PO BID #180 tab 06/21/23 08/28/24 Rx Albuterol Inhaler [Ventolin Hfa 2 puff INHALATION RT-Q4H 08/17/23 08/28/24 History Inhaler] Warfarin [Coumadin] 2.5 mg PO SUTUWEFRSA 08/17/23 08/28/24 History Warfarin [Coumadin] 5 mg PO MOTH 10/31/23 08/28/24 History Amiodarone [Cordarone] 100 mg PO DAILY 08/28/24 08/28/24 History Budesonide/Glycopyr/Formoterol 2 puff INHALATION RT-BID 08/28/24 08/28/24 History [Breztri Aerosphere Inhaler] Ipratropium-Albuterol Nebulize 3 ml INHALATION RT-QID 08/28/24 08/28/24 History [Duoneb 0.5 mg-3 mg/3 ml Soln] Levothyroxine Sodium [Synthroid] 100 mcg PO DAILY 08/28/24 08/28/24 History Spironolactone [Aldactone] 25 mg PO DAILY 08/28/24 08/28/24 History Allergies Allergy/AdvReac Type Severity Reaction Status Date / Time No Known Allergies Allergy Verified 08/28/24 18:46 Physical Exam Vitals: Vital Signs Temp Pulse Resp BP Pulse Ox FiO2 08/29/24 10:10 69 18 114/89 95 08/29/24 08:12 82 08/29/24 07:54 78 08/29/24 07:50 50 08/29/24 07:25 80 16 123/83 95 08/29/24 06:30 65 18 128/71 98 08/29/24 04:10 80 20 145/78 98 08/29/24 03:40 50 08/29/24 02:46 77 18 142/106 98 08/29/24 00:00 78 18 122/68 98 08/28/24 22:00 80 18 139/99 98 08/28/24 21:00 88 18 140/93 96 08/28/24 19:30 99.6 F 95 18 140/78 99 08/28/24 19:20 50 08/28/24 18:47 100 36 H 145/89 99 08/28/24 18:35 100 08/28/24 18:07 96 08/28/24 18:00 70 08/28/24 17:56 100 08/28/24 17:50 101.2 F H 105 H 45 H 142/82 99 Intake and Output 08/28/24 08/29/24 08/29/24 22:59 06:59 14:59 Output Total 300 Balance -300 Output: Urine 300 Female - External 300 Other: Weight 71.214 kg Results 08/28/24 18:09 08/29/24 05:19 Cardiac Enzymes 08/28/24 08/28/24 08/29/24 Range/Units 18:09 18:09 05:19 AST 77 H 83 H (14-36) U/L Troponin I <0.012 (0.000-0.034) ng/mL Coagulation 08/28/24 08/29/24 Range/Units 18:09 05:19 PT 27.3 H 23.2 H (10.0-12.5) sec APTT 24.5 (22.0-30.0) sec CBC 08/28/24 Range/Units 18:09 WBC 10.2 (3.8-10.6) k/uL RBC 4.14 (3.80-5.40) m/uL Hgb 14.5 (11.4-16.0) gm/dL Hct 42.9 (34.0-46.0) % Plt Count 151 (150-450) k/uL Comprehensive Metabolic Panel 08/28/24 08/29/24 Range/Units 18:09 05:19 Sodium 131 L 136 L (137-145) mmol/L Potassium 3.9 3.5 (3.5-5.1) mmol/L Chloride 87 L 91 L (98-107) mmol/L Carbon Dioxide 30 37 H (22-30) mmol/L BUN 18 H 21 H (7-17) mg/dL Creatinine 0.77 0.80 (0.52-1.04) mg/dL Glucose 117 H 149 H (74-99) mg/dL Calcium 8.7 8.3 L (8.4-10.2) mg/dL AST 77 H 83 H (14-36) U/L ALT 48 H 59 H (4-34) U/L Alkaline Phosphatase 145 H 119 (38-126) U/L Total Protein 7.3 6.6 (6.3-8.2) g/dL Albumin 3.7 3.2 L (3.5-5.0) g/dL Current Medications Generic Name Dose Route Start Last Admin Trade Name Freq PRN Reason Stop Dose Admin Acetaminophen 650 mg 08/28/24 20:49 Acetaminophen Tab 325 Mg Tab PO Q4HR PRN Mild Pain or Fever > 100.5 Albuterol/Ipratropium 3 ml 08/29/24 08:00 08/29/24 07:53 Ipratropium-Albuterol 3 Ml Neb INHALATION 3 ml RT-QID CARLY Administration Amiodarone HCl 100 mg 08/29/24 09:00 08/29/24 08:09 Amiodarone 100 Mg Tab PO 100 mg DAILY CARLY Administration Budesonide/Formoterol Fumarate 2 puff 08/29/24 08:00 08/29/24 07:53 Symbicort 160-4.5 Mcg Inhaler INHALATION 2 puff RT-BID CARLY Administration Dapagliflozin 10 mg 08/29/24 09:00 08/29/24 10:09 Dapagliflozin Propanediol 10 Mg Tablet PO 10 mg DAILY ON LICENSE OF [facility] Administration Furosemide 40 mg 08/29/24 09:00 08/29/24 08:09 Furosemide 10 Mg/Ml 4 Ml Vial IV 40 mg Q12HR CARLY Administration Levothyroxine Sodium 100 mcg 08/29/24 06:30 08/29/24 06:50 Levothyroxine 100 Mcg Tab PO 100 mcg DAILY@0630 ON LICENSE OF [facility] Administration Lorazepam 1 mg 08/29/24 03:56 08/29/24 04:13 Lorazepam 2 Mg/Ml Inj IV 1 mg Q6HR PRN Administration Anxiety Losartan Potassium 12.5 mg 08/29/24 09:00 08/29/24 08:09 Losartan 25 Mg Tab PO 12.5 mg DAILY ON LICENSE OF [facility] Administration Methylprednisolone Sodium Succinate 60 mg 08/29/24 16:00 Methylprednisolone Sod Succi 125 Mg/2 Ml Vial IV Q8HR ON LICENSE OF [facility] Metoprolol Tartrate 50 mg 08/28/24 21:00 08/29/24 08:09 Metoprolol Tartrate 50 Mg Tab PO 50 mg BID ON LICENSE OF [facility] Administration Miscellaneous Information 0 each 08/28/24 21:04 Warfarin Per Pharmacy MISCELLANE DIRECTED PRN PER PROTOCOL Naloxone HCl 0.2 mg 08/28/24 20:49 Naloxone 0.4 Mg/Ml 1 Ml Vial IVP Q2M PRN Opioid Reversal Pantoprazole Sodium 40 mg 08/29/24 07:30 08/29/24 07:17 Pantoprazole 40 Mg Tablet PO Not Given AC-BRKFST ON LICENSE OF [facility] Spironolactone 25 mg 08/29/24 09:00 08/29/24 08:09 Spironolactone 25 Mg Tab PO 25 mg DAILY ON LICENSE OF [facility] Administration Tiotropium Alta 2 puff 08/29/24 08:00 08/29/24 07:54 Tiotropium 2.5 Mcg Inhaler INHALATION 2 puff RT-DAILY ON LICENSE OF [facility] Administration Warfarin Sodium 2.5 mg 08/29/24 18:00 Warfarin 2.5 Mg Tab PO SuTuWeFrSa@1800 ON LICENSE OF [facility] Protocol Warfarin Sodium 5 mg 09/01/24 18:00 Warfarin 5 Mg Tab PO MoTh@1800 ON LICENSE OF [facility] Protocol Intake and Output 08/28/24 08/29/24 08/29/24 22:59 06:59 14:59 Output Total 300 Balance -300 Output: Urine 300 Female - External 300 Other: Weight 71.214 kg 08/28/24 18:09 08/29/24 05:19
--- NOTE | 2024-08-29 12:43 | P.PN ---
Subjective Progress Note Date: 08/29/24 Hospital Course: shira is a 74-year-old female with past medical history significant for COPD, CHF, atrial fibrillation on Coumadin, and hypertension presents today for 1 week worsening of breathing as well as significant cough. She wears 2 L of oxygen at night but says that she has had to wear 2 L 24/7 for the past week. About 5 days ago she saw Dr. Lorenzo and he started her on spironolactone due to leg swelling and fluid retention. She states that the leg swelling has improved since. She has experienced COPD exacerbations like this before. Of note her granddaughter had the flu last week. Treated for management of acute on chronic hypoxic respiratory failure secondary to COPD exacerbation, influenza A, acute HFrEF exacerbation. Cardiology consulted. Started on IV Lasix, Coumadin continued, TTE ordered. Subjective: Seen and examined at bedside in the ER, feeling better, continues to have productive cough, shortness of breath improved, denies chest pain, abdominal pa in Pertinent positives and negatives as discussed above, a complete review of systems was performed and all other systems are negative. Vitals Signs Reviewed. General: [nontoxic], [no distress], [appears at stated age] Derm: [warm], [dry] Head: [atraumatic], [normocephalic], [symmetric] Eyes: [EOMI], [no lid lag], [anicteric sclera] Mouth: [no lip lesion], [mucus membranes moist] Cardiovascular: [S1S2 reg], [no murmur] Lungs: Arthrodesis], [no rhonchi, no rales] , [no accessory muscle use] Abdominal: [soft], [ nontender to palpation], [no guarding], [no appreciable organomegaly] Ext: [no gross muscle atrophy], [no lower extremity edema], [no contractures] Neuro: [ CN II-XI grossly intact], [no focal neuro deficits] Psych: [Alert], [oriented], [appropriate affect] Data Reviewed Today: Pertinent Labs: INR 2.3, sodium 136, potassium 2.5, creatinine 0.8, glucose 149, AST 83, ALT 59., Total bilirubin 2.4- Assessment and Plan: Acute on chronic hypoxic respiratory failure multifactorial, secondary to acute influenza A, acute COPD exacerbation, acute on chronic HFrEF Patient met sepsis criteria, likely caused by acute on chronic respiratory distress, nonseptic -Cardiology consulted -Continue IV Lasix 40 twice daily -TTE ordered, pending -Continue breathing treatment -Continue Solu-Medrol, decreased to 60 every 8 hours -Continue supplemental oxygen Paroxysmal A-fib on Coumadin, continue Lopressor 50 twice daily, Coumadin pharmacy to dose INR goal 2-3, continue amiodarone 100 daily Hypothyroidism: Continue levothyroxine 100 mcg daily HTN: Continue home Lopressor 50 twice daily, Cozaar 12.5 HLD Moderate mitral regurgitation Transaminitis Elevated bilirubin -Monitor CMP, ordered abdominal ultrasound, limited abdominal pain DVT ppx: coumadin Anticipated discharge pending Clinical course Anticipated discharge time: pending Clinical course Objective - Vital Signs Vital signs: Vital Signs Temp 99.6 F 08/28/24 19:30 Pulse 82 08/29/24 11:59 Resp 18 08/29/24 10:10 BP 114/89 08/29/24 10:10 Pulse Ox 95 08/29/24 10:10 FiO2 50 08/29/24 07:50 Intake & Output 08/28/24 08/29/24 08/29/24 18:59 06:59 18:59 Output Total 300 Balance -300 Weight 71.214 kg Output: Urine 300 Female - External 300 - Labs CBC & Chem 7: 08/28/24 18:09 08/29/24 05:19 Labs: Abnormal Lab Results - Last 24 Hours (Table) 08/28/24 08/28/24 08/28/24 Range/Units 18:09 18:09 18:09 MCV 103.7 H (80.0-100.0) fL Neutrophils # 8.9 H (1.3-7.7) k/uL Lymphocytes # 0.6 L (1.0-4.8) k/uL PT 27.3 H (10.0-12.5) sec INR 2.7 H (<1.2) Sodium 131 L (137-145) mmol/L Chloride 87 L (98-107) mmol/L Carbon Dioxide (22-30) mmol/L BUN 18 H (7-17) mg/dL Glucose 117 H (74-99) mg/dL Plasma Lactic Acid Luis (0.7-2.0) mmol/L Calcium (8.4-10.2) mg/dL Magnesium 1.3 L (1.6-2.3) mg/dL Total Bilirubin 3.5 H (0.2-1.3) mg/dL AST 77 H (14-36) U/L ALT 48 H (4-34) U/L Alkaline Phosphatase 145 H (38-126) U/L Albumin (3.5-5.0) g/dL Influenza Type A (PCR) (Not Detectd) 08/28/24 08/28/24 08/29/24 Range/Units 18:09 18:12 05:19 MCV (80.0-100.0) fL Neutrophils # (1.3-7.7) k/uL Lymphocytes # (1.0-4.8) k/uL PT 23.2 H (10.0-12.5) sec INR 2.3 H (<1.2) Sodium (137-145) mmol/L Chloride (98-107) mmol/L Carbon Dioxide (22-30) mmol/L BUN (7-17) mg/dL Glucose (74-99) mg/dL Plasma Lactic Acid Luis 3.5 H* (0.7-2.0) mmol/L Calcium (8.4-10.2) mg/dL Magnesium (1.6-2.3) mg/dL Total Bilirubin (0.2-1.3) mg/dL AST (14-36) U/L ALT (4-34) U/L Alkaline Phosphatase (38-126) U/L Albumin (3.5-5.0) g/dL Influenza Type A (PCR) Detected A (Not Detectd) 08/29/24 Range/Units 05:19 MCV (80.0-100.0) fL Neutrophils # (1.3-7.7) k/uL Lymphocytes # (1.0-4.8) k/uL PT (10.0-12.5) sec INR (<1.2) Sodium 136 L (137-145) mmol/L Chloride 91 L (98-107) mmol/L Carbon Dioxide 37 H (22-30) mmol/L BUN 21 H (7-17) mg/dL Glucose 149 H (74-99) mg/dL Plasma Lactic Acid Luis (0.7-2.0) mmol/L Calcium 8.3 L (8.4-10.2) mg/dL Magnesium (1.6-2.3) mg/dL Total Bilirubin 2.5 H (0.2-1.3) mg/dL AST 83 H (14-36) U/L ALT 59 H (4-34) U/L Alkaline Phosphatase (38-126) U/L Albumin 3.2 L (3.5-5.0) g/dL Influenza Type A (PCR) (Not Detectd)
--- NOTE | 2024-08-29 17:19 | CA ---
Transthoracic Echo Report Name: Emilia Woodward Age: 74 Gender: F : 1950 Exam Date: 08/29/2024 10:26 Exam Location: [place] [facility] Ht (in): 63 Wt (lb): 157 Ordering Physician: Archana Campos Attending/Referring Phys: [id number], Andres Mender [employer] Nithya Reynolds RDCS Procedure CPT: Indications: LV function, CHF, + flu Cardiac Hx: Technical Quality: Technically difficult study Contrast 1: Definity Total Dose (mL): 3 Contrast 2: Total Dose (mL): MEASUREMENTS (Male / Female) Normal Values 2D ECHO LV Diastolic Diameter PLAX 6.1 cm 4.2 - 5.9 / 3.9 - 5.3 cm LV Systolic Diameter PLAX 5.5 cm IVS Diastolic Thickness 0.6 cm 0.6 - 1.0 / 0.6 - 0.9 cm LVPW Diastolic Thickness 0.7 cm 0.6 - 1.0 / 0.6 - 0.9 cm LV Relative Wall Thickness 0.2 LVOT Diameter 1.8 cm LV Diastolic Volume MOD BP 151.6 cm??? 67 - 155 / 56 - 104 cm??? LV Systolic Volume MOD BP 98.6 cm??? 22 - 58 / 19 - 49 cm??? LV Ejection Fraction MOD BP 35.0 % >= 55 % LV Cardiac Index MOD BP 2122.8 cm???/min???m??? LV Diastolic Volume MOD 4C 154.7 cm??? LV Systolic Volume MOD 4C 95.3 cm??? LV Ejection Fraction MOD 4C 38.4 % LV Cardiac Index MOD 4C 2377.4 cm???/min???m??? LV Diastolic Length 4C 8.4 cm LV Systolic Length 4C 7.5 cm LV Diastolic Volume MOD 2C 145.2 cm??? LV Systolic Volume MOD 2C 102.1 cm??? LV Ejection Fraction MOD 2C 29.7 % LV Cardiac Index MOD 2C 1728.2 cm???/min???m??? LV Diastolic Length 2C 8.2 cm LV Systolic Length 2C 7.5 cm LA Volume 81.2 cm??? 18 - 58 / 22 - 52 cm??? LA Volume Index 45.1 cm???/m??? 16 - 28 cm???/m??? DOPPLER AV Peak Velocity 100.2 cm/s AV Peak Gradient 4.0 mmHg AV Mean Velocity 76.9 cm/s AV Mean Gradient 2.5 mmHg AV Velocity Time Integral 22.0 cm LVOT Peak Velocity 97.3 cm/s LVOT Peak Gradient 3.8 mmHg LVOT Velocity Time Integral 19.9 cm LVOT Stroke Volume 49.8 cm??? LVOT Stroke Volume Index 28.5 ml/m??? LVOT Cardiac Index 1991.6 cm???/min???m??? AV Area Cont Eq vti 2.3 cm??? AV Area Cont Eq pk 2.4 cm??? MV Area PHT 4.9 cm??? Mitral E Point Velocity 89.7 cm/s Mitral A Point Velocity 55.1 cm/s Mitral E to A Ratio 1.6 MV Deceleration Time 154.7 ms TR Peak Velocity 354.6 cm/s TR Peak Gradient 50.3 mmHg Right Atrial Pressure 20.0 mmHg Pulmonary Artery Systolic Pressu 70.3 mmHg Right Ventricular Systolic Press 70.3 mmHg PV Peak Velocity 77.5 cm/s PV Peak Gradient 2.4 mmHg FINDINGS Left Ventricle Left ventricular ejection fraction is estimated at 30- %. Moderately increased left ventricular diastolic diameter. Severely increased left ventricular diastolic volume. Severely increased left ventricular systolic volume. Moderately decreased left ventricular ejection fraction. Right Ventricle Right ventricular dilatation with moderately reduced function. Severe pulmonary hypertension. Right Atrium Severe right atrial dilatation. Left Atrium Severely increased left atrial volume. Mildly increased left atrial area. Mitral Valve Mitral valve thickened. Mitral annular calcification. No evidence for mitral valve prolapse. No mitral stenosis. Mild mitral regurgitation. Aortic Valve Trileaflet aortic valve. No aortic valve stenosis or regurgitation. Tricuspid Valve Structurally normal tricuspid valve. No tricuspid stenosis. [id number] tricuspid regurgitation. Pulmonic Valve Pulmonic valve not well visualized. No pulmonic stenosis. Trace pulmonic regurgitation. Pericardium No pericardial effusion. Aorta Aortic annulus normal. CONCLUSIONS Severe LV systolic dysfunction with an ejection fraction 35% Severe pulmonary hypertension Mild biatrial enlargement Mild mitral and [id number] tricuspid regurgitation Previewed by: Dr. Claudy Ring MD (Electronically Signed) Final Date: 29 August 2024 17:18
[2024-08-29] MEDS: WARFARIN 2.5 MG TAB PO SCH (19:45)
--- NOTE | 2024-08-29 20:57 | US ---
EXAMINATION TYPE: US abdomen limited DATE OF EXAM: 08/29/2024 COMPARISON: NONE CLINICAL INDICATION: Female, 74 years old with history of hyperbilirubinemia, elevated LFTs; Hyperbil irubinemia, elevated LFTs TECHNIQUE: Grayscale and color Doppler imaging of the right upper quadrant. FINDINGS: EXAM MEASUREMENTS: Liver Length: 16.8 cm Gallbladder Wall: 0.25 cm CBD: 0.40 cm, color Doppler imaging was utilized to isolate the common bile duct for measurement. Right Kidney: 11.4 x 5.2 x 4.3 cm RECREATIONAL RESORT MANAGER NOTES: Exam is very limited due to great amount of gas and a lot of patient movement. Pancreas: Head and tail were obscured. Liver: Appears heterogeneous. Gallbladder: limited. Hyperechoic area seen attached to gallbladder wall: 0.3 x 0.2 x 0.2 cm. Evidence for sonographic Underwood's sign: No CBD: wnl Right Kidney: *Hyperechoic focus seen at mid: 0.4 x 0.3 x 0.4 cm. IMPRESSION: 1. No evidence for acute process. 2. Adherent gallstone versus small polyp measuring 3 mm. 3. Nonobstructing right renal calculi. [facility], , 08/29/2024 8:55 PM
[2024-08-29 22:55] LABS: Glucose,Whole Blood 166 mg/dL (70-110)
[2024-08-29] MEDS: chlordiazePOXIDE 25 MG CAP PO SCH (23:00)
--- NOTE | 2024-08-29 23:03 | XR ---
EXAMINATION TYPE: XR chest 1V portable DATE OF EXAM: 08/29/2024 10:38 PM COMPARISON: Chest radiographs from 08/28/2024 CLINICAL INDICATION: Female, 74 years old with history of Resp distress; [facility] TECHNIQUE: XR chest 1V portable Frontal view of the chest. FINDINGS: Lungs/Pleura: There is no evidence of pleural effusion, focal consolidation, or pneumothorax. Pulmonary vascularity: Pulmonary vascular congestion. Heart/mediastinum: Cardiomediastinal silhouette is enlarged and stable. Musculoskeletal: No acute osseous pathology. IMPRESSION: Cardiomegaly and mild pulmonary vascular congestion. Correlate with BNP for congestive heart failure. [facility], , 08/29/2024 11:01 PM
[2024-08-29] MEDS: ACETAMINOPHEN IV (For NPO) 1,000 MG in EMPTY BAG 1 BAG IVPB SCH (23:35)
[2024-08-29] MEDS ORDERED: NALOXONE 0.4 MG/ML 1 ML VIAL IV PRN (23:47)
[2024-08-29] MEDS: THIAMINE 100 MG/ML 2 ML VIAL IM STA (23:52)
[2024-08-30 00:16] LABS: Basophils % (A) 0 %; Eosinophils % (A) 0 %; HCT 42.7 % (34.0-46.0); HGB 13.6 gm/dL (11.4-16.0); Lymphocytes # (A) 0.2 k/uL (1.0-4.8); Lymphocytes % (A) 2 %; MCH 33.9 pg (25.0-35.0); MCHC 31.8 g/dL (31.0-37.0); MCV 106.8 fL (80.0-100.0); Macrocytosis Moderate; Mean Platelet Volume 8.4; Monocytes # (A) 0.9 k/uL (0-1.0); Monocytes % (A) 6 %; Neutrophils # (A) 14.1 k/uL (1.3-7.7); Neutrophils % (A) 92 %; Platelet Count 283 k/uL (150-450); RBC 3.99 m/uL (3.80-5.40); RDW 14.4 % (11.5-15.5); WBC 15.3 k/uL (3.8-10.6)
[2024-08-30 00:22] LABS: African American GFR (CKD) 79 (>60 ml/min/1.73 sqM); Anion Gap 11 mmol/L; Blood Urea Nitrogen 28 mg/dL (7-17); Calcium 8.7 mg/dL (8.4-10.2); Carbon Dioxide 31 mmol/L (22-30); Chloride 92 mmol/L (98-107); Glucose 161 mg/dL (74-99); Magnesium 1.9 mg/dL (1.6-2.3); Non-African American GFR(CKD) 68 (>60 ml/min/1.73 sqM); Sodium 134 mmol/L (137-145)
[2024-08-30] MEDS: MAGNESIUM SULFATE-D5W PMX 1 GM in DEXTROSE/WATER 1 100ML.BAG IVPB ONE ×2 (00:48→06:02)
[2024-08-30 05:14] LABS: HCT 39.4 % (34.0-46.0); HGB 12.3 gm/dL (11.4-16.0); Hypochromasia Slight; MCH 33.5 pg (25.0-35.0); MCHC 31.3 g/dL (31.0-37.0); MCV 106.9 fL (80.0-100.0); Macrocytosis Moderate; Mean Platelet Volume 8.1; Platelet Count 210 k/uL (150-450); RBC 3.69 m/uL (3.80-5.40); RDW 14.1 % (11.5-15.5); WBC 11.9 k/uL (3.8-10.6)
[2024-08-30 05:28] LABS: ALT 88 U/L (4-34); AST 135 U/L (14-36); African American GFR (CKD) >90 (>60 ml/min/1.73 sqM); Albumin 2.8 g/dL (3.5-5.0); Alkaline Phosphatase 102 U/L (38-126); Anion Gap 3 mmol/L; Blood Urea Nitrogen 28 mg/dL (7-17); Calcium 8.2 mg/dL (8.4-10.2); Carbon Dioxide 39 mmol/L (22-30); Chloride 93 mmol/L (98-107); Glucose 137 mg/dL (74-99); Magnesium 1.9 mg/dL (1.6-2.3); Non-African American GFR(CKD) 79 (>60 ml/min/1.73 sqM); Potassium 3.4 mmol/L (3.5-5.1); Sodium 135 mmol/L (137-145); Total Bilirubin 1.8 mg/dL (0.2-1.3)
[2024-08-30 05:30] LABS: INR 3.1 (<1.2); Prothrombin Time 30.3 sec (10.0-12.5)
[2024-08-30] MEDS: POTASSIUM CHLORIDE 10 MEQ in WATER FOR INJECTION 1 100ML.BAG IVPB SCH (06:01)
--- NOTE | 2024-08-30 07:02 | XR ---
EXAMINATION TYPE: XR chest 1V portable DATE OF EXAM: 08/30/2024 COMPARISON: 08/29/2024 CLINICAL INDICATION: Female, 74 years old with history of pulmonary edema; TECHNIQUE: Single frontal view of the chest is obtained. FINDINGS: There is no change in the diffuse opacity and mild cardiomegaly. There has been interval de velopment of a small left pleural effusion. There is no pneumothorax. IMPRESSION: No significant interval change in the pulmonary vascular congestion and interstitial edema. Developme nt of a small left pleural effusion. [facility], Workstation: [email or web address], 08/30/2024 7:00 AM
--- NOTE | 2024-08-30 09:12 | P.PN ---
Subjective Progress Note Date: 08/30/24 Was seen and evaluated this morning but apparently she was transferred to the intensive care unit overnight because of change in mental status and deterioration of the respiratory status but currently she is on BiPAP. She underwent an echo which revealed cardiomyopathy with EF appeared to be in the range of 30% with evidence of severe pulmonary hypertension and she is on maximized medical treatment for cardiomyopathy except that she is not on SGLT2 inhibitors and with that and going to add Farxiga to the current medical regimen. Also follow-up with the second set of troponin. She continues to be on Lasix IV. Kidney function remains stable. ASSESSMENT: Acute influenza A Shortness of breath Acute on chronic heart failure with reduced EF Paroxysmal atrial fibrillation, on Coumadin outpatient History of nonischemic cardiomyopathy Hypertension Hyperlipidemia Moderate mitral regurgitation PLAN: Continue anticoagulation with Coumadin. Monitor INR. Continue IV Lasix Add Farxiga to the current medical regimen Daily weights, accurate intake and output, and monitoring of kidney function Further recommendations pending patient course Objective - Vital Signs Vital signs: Vital Signs Temp 97.9 F 08/30/24 04:00 Pulse 75 08/30/24 07:00 Resp 18 08/30/24 07:00 BP 128/78 08/30/24 07:00 Pulse Ox 95 08/30/24 07:00 FiO2 50 08/30/24 08:14 Intake & Output 08/29/24 08/30/24 08/30/24 18:59 06:59 18:59 Intake Total 600 Output Total 795 Balance -195 Weight 71 kg Intake: IV 600 ACETAMINOPHEN IV (For NPO 200 ) 1,000 mg In Empty Bag 1 bag @ 400 mls/hr IVPB Q6HR [facility] Rx#:[id number] Magnesium Sulfate-D5w Pmx 200 1 gm In Dextrose/Water 1 100ml.bag @ 100 mls/hr IVPB ONCE ONE Rx#: [id number] Potassium Chloride 10 meq 200 In Water For Injection 1 100ml.bag @ 100 mls/hr IVPB Q1HR [facility] Rx#: [id number] Output: Urine 795 Other: Voiding Method Indwelling Catheter - Labs CBC & Chem 7: 08/30/24 03:55 08/30/24 03:55 Labs: Abnormal Lab Results - Last 24 Hours (Table) 08/29/24 08/29/24 08/29/24 Range/Units 22:54 23:15 23:15 WBC 15.3 H (3.8-10.6) k/uL RBC (3.80-5.40) m/uL MCV 106.8 H (80.0-100.0) fL Neutrophils # 14.1 H (1.3-7.7) k/uL Lymphocytes # 0.2 L (1.0-4.8) k/uL PT (10.0-12.5) sec INR (<1.2) Sodium 134 L (137-145) mmol/L Potassium (3.5-5.1) mmol/L Chloride 92 L (98-107) mmol/L Carbon Dioxide 31 H (22-30) mmol/L BUN 28 H (7-17) mg/dL Glucose 161 H (74-99) mg/dL POC Glucose (mg/dL) 166 H (70-110) mg/dL Calcium (8.4-10.2) mg/dL Total Bilirubin (0.2-1.3) mg/dL AST (14-36) U/L ALT (4-34) U/L Total Protein (6.3-8.2) g/dL Albumin (3.5-5.0) g/dL 08/30/24 08/30/24 08/30/24 Range/Units 03:55 03:55 03:55 WBC 11.9 H (3.8-10.6) k/uL RBC 3.69 L (3.80-5.40) m/uL MCV 106.9 H (80.0-100.0) fL Neutrophils # (1.3-7.7) k/uL Lymphocytes # (1.0-4.8) k/uL PT 30.3 H (10.0-12.5) sec INR 3.1 H (<1.2) Sodium 135 L (137-145) mmol/L Potassium 3.4 L (3.5-5.1) mmol/L Chloride 93 L (98-107) mmol/L Carbon Dioxide 39 H (22-30) mmol/L BUN 28 H (7-17) mg/dL Glucose 137 H (74-99) mg/dL POC Glucose (mg/dL) (70-110) mg/dL Calcium 8.2 L (8.4-10.2) mg/dL Total Bilirubin 1.8 H (0.2-1.3) mg/dL AST 135 H (14-36) U/L ALT 88 H (4-34) U/L Total Protein 6.0 L (6.3-8.2) g/dL Albumin 2.8 L (3.5-5.0) g/dL
[2024-08-30] MEDS: THIAMINE 100 MG TAB PO SCH (10:06)
--- NOTE | 2024-08-30 11:44 | P.CNPUL ---
History of Present Illness Consult date: 08/30/24 Requesting physician: Kameron Hernandez Reason for consult: COPD Chief complaint: Worsening shortness of breath History of present illness: This is a 74-year-old female, familiar to my service, patient is known to have history of COPD, severe, history of chronic cor pulmonale, history of nonische saroj cardiomyopathy and LV dysfunction as well as history of chronic atrial fibrillation maintained on Coumadin. Patient is also known to have history of moderate mitral regurgitation. Patient is normally on oxygen at 2 L/min, she is normally on diuretics, and she was very seen about a week ago in my office with worsening swelling of her lower extremities, and patient was placed on Aldactone in addition to her Lasix. Her leg swelling improved, however patient came into the ER on 08/28/2024, came in mostly with worsening shortness of breath, cough, wheezing, apparently when she was brought in by EMS she was found to be in tripod position and she was breathing quite heavy. Patient was placed on BiPAP, that seemed to improve her pulmonary status significantly on BiPAP. In the ER, patient was noted to have positive screening for acute influenza A. Last night I was notified about this patient about her shortness of breath and being BiPAP dependent, patient is known to have history of alcohol drinking, and there was also a concern about the patient going into alcohol withdrawal. Patient required some Ativan, admitted to the ICU for close monitoring. I was asked to see her in consultation. In addition to her COPD, patient had positive screening for influenza A. Today I saw the patient in the ICU, she is still on BiPAP 12/5/40%, patient is receiving Lasix, she is also on Aldactone, patient is on Tamiflu, and she is on her usual bronchodilators and on Solu-Medrol. WBC count is 11.9 hemoglobin 12.3 INR is 3.1 electrolytes are normal renal profile is normal troponin is less than 0.012 Review of Systems CONSTITUTIONAL: Weakness fatigue no fever no chills no weight loss Head: Negative HEENT: Negative CARDIOVASCULAR: Negative RESPIRATORY: As noted in HPI mostly cough and shortness of breath GASTROINTESTINAL: Negative. HEMATOLOGIC: No clotting bleeding or bruising GENITOURINARY: No hematuria, no dysuria no frequency no urgency SKIN: No rashes, no itching Psychiatric: No symptoms of active depression. Past Medical History Past Medical History: Atrial Fibrillation, Heart Failure, COPD, Hypertension History of Any Multi-Drug Resistant Organisms: None Reported Past Surgical History: Section, Hysterectomy Additional Past Surgical History / Comment(s): cataracts Past Anesthesia/Blood Transfusion Reactions: No Reported Reaction Past Psychological History: No Psychological Hx Reported Smoking Status: Former smoker Past Alcohol Use History: Daily Past Drug Use History: Marijuana - Past Family History Mother Additional Family Medical History / Comment(s): Wegeners disease Father Family Medical History: Congestive Heart Failure (CHF) Medications and Allergies Home Medications Medication Instructions Recorded Confirmed Type Furosemide [Lasix] 20 mg PO DAILY #90 tab 06/21/23 08/28/24 Rx Losartan [Cozaar] 12.5 mg PO DAILY #90 tab 06/21/23 08/28/24 Rx Metoprolol Tartrate [Lopressor] 50 mg PO BID #180 tab 06/21/23 08/28/24 Rx Albuterol Inhaler [Ventolin Hfa 2 puff INHALATION RT-Q4H 08/17/23 08/28/24 History Inhaler] Warfarin [Coumadin] 2.5 mg PO SUTUWEFRSA 08/17/23 08/28/24 History Warfarin [Coumadin] 5 mg PO MOTH 10/31/23 08/28/24 History Amiodarone [Cordarone] 100 mg PO DAILY 08/28/24 08/28/24 History Budesonide/Glycopyr/Formoterol 2 puff INHALATION RT-BID 08/28/24 08/28/24 History [Breztri Aerosphere Inhaler] Ipratropium-Albuterol Nebulize 3 ml INHALATION RT-QID 08/28/24 08/28/24 History [Duoneb 0.5 mg-3 mg/3 ml Soln] Levothyroxine Sodium [Synthroid] 100 mcg PO DAILY 08/28/24 08/28/24 History Spironolactone [Aldactone] 25 mg PO DAILY 08/28/24 08/28/24 History Allergies Allergy/AdvReac Type Severity Reaction Status Date / Time No Known Allergies Allergy Verified 08/28/24 18:46 Physical Exam Vitals: Vital Signs Temp Pulse Resp BP Pulse Ox FiO2 08/30/24 09:40 100 08/30/24 09:30 100 08/30/24 08:14 50 08/30/24 07:00 75 18 128/78 95 08/30/24 06:00 76 15 118/55 96 08/30/24 05:00 87 24 118/59 95 08/30/24 04:00 97.9 F 79 18 111/47 98 50 08/30/24 03:41 50 08/30/24 03:00 83 21 112/60 98 08/30/24 02:00 79 19 105/53 97 08/30/24 01:00 82 19 95/45 96 08/30/24 00:00 100.8 F H 93 21 147/86 96 50 08/29/24 23:45 102 H 23 147/86 96 08/29/24 23:09 50 08/29/24 23:00 36 H 147/85 94 L 08/29/24 22:15 116 H 26 H 103/91 98 08/29/24 22:00 101.8 F H 116 H 32 H 153/107 99 08/29/24 21:46 117 H 08/29/24 21:45 118 H 24 153/102 98 08/29/24 21:36 120 H 50 08/29/24 21:30 118 H 24 156/112 99 08/29/24 21:04 107 H 94 L 08/29/24 21:00 108 H 24 131/83 08/29/24 20:36 98 26 H 131/83 97 08/29/24 20:00 92 22 144/76 98 08/29/24 19:52 92 26 H 144/76 98 08/29/24 19:00 88 23 130/74 100 08/29/24 18:00 89 24 122/78 96 08/29/24 17:00 86 21 140/79 08/29/24 16:49 85 08/29/24 16:39 82 08/29/24 16:00 78 29 H 132/69 99 08/29/24 15:00 74 17 120/57 100 08/29/24 14:00 81 22 128/62 98 50 08/29/24 13:00 75 24 133/69 98 08/29/24 12:00 75 24 118/85 96 08/29/24 11:59 82 08/29/24 11:43 78 Intake and Output 08/29/24 08/30/24 08/30/24 22:59 06:59 14:59 Intake Total 600 Output Total 795 Balance -195 Intake: IV 600 ACETAMINOPHEN IV (For NPO 200 ) 1,000 mg In Empty Bag 1 bag @ 400 mls/hr IVPB Q6HR [facility] Rx#:[id number] Magnesium Sulfate-D5w Pmx 200 1 gm In Dextrose/Water 1 100ml.bag @ 100 mls/hr IVPB ONCE ONE Rx#: [id number] Potassium Chloride 10 meq 200 In Water For Injection 1 100ml.bag @ 100 mls/hr IVPB Q1HR [facility] Rx#: [id number] Output: Urine 795 Other: Voiding Method Indwelling Catheter Weight 71 kg General: Revealed 72-year-old female in no distress, on BiPAP Head: Atraumatic normocephalicPupils are equal, round. Sclerae anicteric. Moist mucous membranes no JVD LUNGS: Diminished breath sound bilaterally some wheezing on forced expiratory maneuver HEART: Regular rate and rhythm. S1 and S2 heard. ABDOMEN: Soft nontender no rebound no guarding positive bowel sounds EXTREMITIES: No clubbing edema or cyanosis a NEUROLOGIC: Patient is arousable, seems to be a bit confused, otherwise no gross focal deficit Psychiatric: Normal mood affect and confused mental status. Results - Laboratory Findings CBC and BMP: 08/30/24 03:55 08/30/24 03:55 PT/INR, D-dimer PT 30.3 sec (10.0-12.5) H 08/30/24 03:55 INR 3.1 (<1.2) H 08/30/24 03:55 Abnormal lab findings: Abnormal Labs 08/28/24 08/28/24 08/28/24 18:09 18:09 18:09 WBC RBC MCV 103.7 H Neutrophils # 8.9 H Lymphocytes # 0.6 L PT 27.3 H INR 2.7 H Sodium 131 L Potassium Chloride 87 L Carbon Dioxide BUN 18 H Glucose 117 H POC Glucose (mg/dL) Plasma Lactic Acid Luis Calcium Magnesium 1.3 L Total Bilirubin 3.5 H AST 77 H ALT 48 H Alkaline Phosphatase 145 H Total Protein Albumin Influenza Type A (PCR) 08/28/24 08/28/24 08/29/24 18:09 18:12 05:19 WBC RBC MCV Neutrophils # Lymphocytes # PT 23.2 H INR 2.3 H Sodium Potassium Chloride Carbon Dioxide BUN Glucose POC Glucose (mg/dL) Plasma Lactic Acid Luis 3.5 H* Calcium Magnesium Total Bilirubin AST ALT Alkaline Phosphatase Total Protein Albumin Influenza Type A (PCR) Detected A 08/29/24 08/29/24 08/29/24 05:19 22:54 23:15 WBC 15.3 H RBC MCV 106.8 H Neutrophils # 14.1 H Lymphocytes # 0.2 L PT INR Sodium 136 L Potassium Chloride 91 L Carbon Dioxide 37 H BUN 21 H Glucose 149 H POC Glucose (mg/dL) 166 H Plasma Lactic Acid Luis Calcium 8.3 L Magnesium Total Bilirubin 2.5 H AST 83 H ALT 59 H Alkaline Phosphatase Total Protein Albumin 3.2 L Influenza Type A (PCR) 08/29/24 08/30/24 08/30/24 23:15 03:55 03:55 WBC RBC MCV Neutrophils # Lymphocytes # PT 30.3 H INR 3.1 H Sodium 134 L 135 L Potassium 3.4 L Chloride 92 L 93 L Carbon Dioxide 31 H 39 H BUN 28 H 28 H Glucose 161 H 137 H POC Glucose (mg/dL) Plasma Lactic Acid Luis Calcium 8.2 L Magnesium Total Bilirubin 1.8 H AST 135 H ALT 88 H Alkaline Phosphatase Total Protein 6.0 L Albumin 2.8 L Influenza Type A (PCR) 08/30/24 03:55 WBC 11.9 H RBC 3.69 L MCV 106.9 H Neutrophils # Lymphocytes # PT INR Sodium Potassium Chloride Carbon Dioxide BUN Glucose POC Glucose (mg/dL) Plasma Lactic Acid Luis Calcium Magnesium Total Bilirubin AST ALT Alkaline Phosphatase Total Protein Albumin Influenza Type A (PCR) - Diagnostic Findings Chest x-ray: image reviewed (Chest x-ray showed minimal interstitial congestion and interstitial edema with small left pleural effusion) Assessment and Plan Assessment: Impression: Acute influenza A chronic hypoxic respiratory failure Paroxysmal atrial fibrillation Acute exacerbation of COPD Acute on chronic systolic congestive heart failure History of alcohol use Moderate mitral regurgitation Nonischemic cardiomyopathy Hypertension Dyslipidemia History of hypothyroidism Recommendation: Continue BiPAP for now Continue Tamiflu Continue bronchodilators Continue diuretics GI DVT prophylaxis Resume home meds Continue steroids CIWA protocol for history of alcohol use Will continue to follow Time with Patient: Greater than 30
--- NOTE | 2024-08-30 13:58 | P.PN ---
Subjective Progress Note Date: 08/30/24 shira is a 74-year-old female with past medical history significant for COPD, CHF, atrial fibrillation on Coumadin, and hypertension presents today for 1 week worsening of breathing as well as significant cough. She wears 2 L of oxygen at night but says that she has had to wear 2 L 24/7 for the past week. About 5 days ago she saw Dr. Lorenzo and he started her on spironolactone due to leg sw elling and fluid retention. She states that the leg swelling has improved since. She has experienced COPD exacerbations like this before. Of note her granddaughter had the flu last week. Treated for management of acute on chronic hypoxic respiratory failure secondary to COPD exacerbation, influenza A, acute HFrEF exacerbation. Cardiology consulted. Started on IV Lasix, Coumadin continued, TTE ordered. Severe LV systolic dysfunction with EF 35%, severe pulmonary hypertension. Added Farxiga to her current medical regimen. Elevated LFTs, bilirubin, abdominal ultrasound was obtained and showed no acute finding, negative Underwood sign, adherent gallstone versus small polyp measuring 3 mm. Nonobstructing renal calculi on the right. 08/29 in the evening patient became progressively short of breath, started hallucinating. She was placed on BiPAP, given her history of alcohol drinking, she was started on CIWA with Ativan, transferred to ICU for close monitoring. Subjective: At bedside in the ICU, patient was on BiPAP, complains of shortness of breath, denied chest pain, abdominal pain. Pertinent positives and negatives as discussed above, a complete review of systems was performed and all other systems are negative. Vitals Signs Reviewed. General: [nontoxic], [no distress], [appears at stated age] Derm: [warm], [dry] Head: [atraumatic], [normocephalic], [symmetric] Eyes: [EOMI], [no lid lag], [anicteric sclera] Mouth: [no lip lesion], [mucus membranes moist] Cardiovascular: [S1S2 irregular, Lungs: Coarse breath sounds bilaterally, [no rhonchi, no rales] , [no accessory muscle use] Abdominal: [soft], [ nontender to palpation], [no guarding], [no appreciable organomegaly] Ext: [no gross muscle atrophy], [no lower extremity edema], [no contractures] Neuro: [ CN II-XI grossly intact], [no focal neuro deficits] Psych: [Alert], [oriented], [appropriate affect] Data Reviewed Today: Pertinent Labs: WBC is trending down 11.9, hemoglobin normal stable at 12.3, platelet count 210, INR 3.1, sodium 135, potassium 3.4, carbon dioxide 39, creatinine 0.76, AST and ALT trending up 135 and 88 accordingly, troponin negative Assessment and Plan: Acute on chronic hypoxic respiratory failure multifactorial, secondary to acute influenza A, acute COPD exacerbation, acute on chronic HFrEF Severe pulmonary hypertension Acute toxic metabolic encephalopathy History of alcohol use Patient met sepsis criteria, likely caused by acute on chronic respiratory distress, nonseptic -Cardiology consulted: Added Farxiga -Continue IV Lasix 40 twice daily -Continue breathing treatment -Continue Solu-Medrol, decreased to 60 every 8 hours -CIWA with Ativan. Thiamine -Continue supplemental oxygen -08/30 Attempted to call patient's and patient's son, no response Paroxysmal A-fib on Coumadin, continue Lopressor 50 twice daily, Coumadin pharmacy to dose INR goal 2-3, continue amiodarone 100 daily Hypothyroidism: Continue levothyroxine 100 mcg daily HTN: Continue home Lopressor 50 twice daily, Cozaar 12.5 HLD nephroLithiasis, right Moderate mitral regurgitation Transaminitis Elevated bilirubin -Monitor CMP, ordered abdominal ultrasound, -negative -No abdominal pain, nausea DVT ppx: coumadin Anticipated discharge pending Clinical course Anticipated discharge time: pending Clinical course Objective - Vital Signs Vital signs: Vital Signs Temp 97.9 F 08/30/24 04:00 Pulse 90 08/30/24 12:00 Resp 22 08/30/24 12:00 BP 113/81 08/30/24 12:00 Pulse Ox 95 08/30/24 12:00 FiO2 40 08/30/24 09:00 Intake & Output 08/29/24 08/30/24 08/30/24 18:59 06:59 18:59 Intake Total 600 Output Total 795 Balance -195 Weight 71 kg 71 kg Intake: IV 600 ACETAMINOPHEN IV (For NPO 200 ) 1,000 mg In Empty Bag 1 bag @ 400 mls/hr IVPB Q6HR [facility] Rx#:[id number] Magnesium Sulfate-D5w Pmx 200 1 gm In Dextrose/Water 1 100ml.bag @ 100 mls/hr IVPB ONCE ONE Rx#: [id number] Potassium Chloride 10 meq 200 In Water For Injection 1 100ml.bag @ 100 mls/hr IVPB Q1HR [facility] Rx#: [id number] Output: Urine 795 Other: Voiding Method Indwelling Catheter - Labs CBC & Chem 7: 08/30/24 03:55 08/30/24 03:55 Labs: Abnormal Lab Results - Last 24 Hours (Table) 08/29/24 08/29/24 08/29/24 Range/Units 22:54 23:15 23:15 WBC 15.3 H (3.8-10.6) k/uL RBC (3.80-5.40) m/uL MCV 106.8 H (80.0-100.0) fL Neutrophils # 14.1 H (1.3-7.7) k/uL Lymphocytes # 0.2 L (1.0-4.8) k/uL PT (10.0-12.5) sec INR (<1.2) Sodium 134 L (137-145) mmol/L Potassium (3.5-5.1) mmol/L Chloride 92 L (98-107) mmol/L Carbon Dioxide 31 H (22-30) mmol/L BUN 28 H (7-17) mg/dL Glucose 161 H (74-99) mg/dL POC Glucose (mg/dL) 166 H (70-110) mg/dL Calcium (8.4-10.2) mg/dL Total Bilirubin (0.2-1.3) mg/dL AST (14-36) U/L ALT (4-34) U/L Total Protein (6.3-8.2) g/dL Albumin (3.5-5.0) g/dL 08/30/24 08/30/24 08/30/24 Range/Units 03:55 03:55 03:55 WBC 11.9 H (3.8-10.6) k/uL RBC 3.69 L (3.80-5.40) m/uL MCV 106.9 H (80.0-100.0) fL Neutrophils # (1.3-7.7) k/uL Lymphocytes # (1.0-4.8) k/uL PT 30.3 H (10.0-12.5) sec INR 3.1 H (<1.2) Sodium 135 L (137-145) mmol/L Potassium 3.4 L (3.5-5.1) mmol/L Chloride 93 L (98-107) mmol/L Carbon Dioxide 39 H (22-30) mmol/L BUN 28 H (7-17) mg/dL Glucose 137 H (74-99) mg/dL POC Glucose (mg/dL) (70-110) mg/dL Calcium 8.2 L (8.4-10.2) mg/dL Total Bilirubin 1.8 H (0.2-1.3) mg/dL AST 135 H (14-36) U/L ALT 88 H (4-34) U/L Total Protein 6.0 L (6.3-8.2) g/dL Albumin 2.8 L (3.5-5.0) g/dL
[2024-08-30] MEDS: WARFARIN 1 MG TAB PO ONE (18:08)
[2024-08-31] MEDS: LORazepam 2 MG/ML INJ IV PRN (00:17)
[2024-08-31 06:00] LABS: Basophils % (A) 0 %; Eosinophils % (A) 0 %; HCT 44.4 % (34.0-46.0); HGB 14.3 gm/dL (11.4-16.0); Hypochromasia Moderate; Lymphocytes # (A) 0.2 k/uL (1.0-4.8); Lymphocytes % (A) 2 %; MCH 34.9 pg (25.0-35.0); MCHC 32.3 g/dL (31.0-37.0); Macrocytosis Marked; Mean Platelet Volume 8.5; Monocytes # (A) 0.4 k/uL (0-1.0); Monocytes % (A) 4 %; Neutrophils # (A) 10.6 k/uL (1.3-7.7); Neutrophils % (A) 93 %; Platelet Count 217 k/uL (150-450); RBC 4.11 m/uL (3.80-5.40); WBC 11.4 k/uL (3.8-10.6)
[2024-08-31 06:28] LABS: INR 3.3 (<1.2); Prothrombin Time 32.4 sec (10.0-12.5)
[2024-08-31 06:29] LABS: African American GFR (CKD) >90 (>60 ml/min/1.73 sqM); Anion Gap 10 mmol/L; Blood Urea Nitrogen 27 mg/dL (7-17); Calcium 8.7 mg/dL (8.4-10.2); Chloride 92 mmol/L (98-107); Glucose 117 mg/dL (74-99); Non-African American GFR(CKD) 89 (>60 ml/min/1.73 sqM); Potassium 3.9 mmol/L (3.5-5.1); Sodium 142 mmol/L (137-145)
[2024-08-31 06:39] LABS: Carbon Dioxide 40 mmol/L (22-30)
--- NOTE | 2024-08-31 06:52 | XR ---
EXAMINATION TYPE: XR chest 1V portable DATE OF EXAM: 08/31/2024 COMPARISON: 08/30/2024 CLINICAL INDICATION: Female, 74 years old with history of flu A; TECHNIQUE: Single frontal view of the chest is obtained. FINDINGS: Persistent mild cardiomegaly and pulmonary vascular congestion. Small partially consolidated infiltra te retrocardiac region which could reflect pulmonary edema or small pneumonic infiltrate. There is no pleural effusion or pneumothorax. The osseous structures are. IMPRESSION: 1. No change in mild cardiomegaly and pulmonary vascular congestion. Findings most consistent with CH F. 2. Cannot exclude small retrocardiac infiltrate could reflect pulmonary edema or focal pneumonic infi ltrate. [facility], Workstation: [email or web address], 08/31/2024 6:50 AM
[2024-08-31] MEDS: POTASSIUM CHLORIDE ER 20 MEQ TAB.ER PO SCH (06:54)
[2024-08-31] MEDS: DOXYCYCLINE 100 MG CAP PO SCH (10:22)
--- NOTE | 2024-08-31 12:02 | P.PN ---
Subjective Progress Note Date: 08/31/24 Principal diagnosis: Acute influenza A infection with acute exacerbation of COPD This is a 74-year-old female, familiar to my service, patient is known to have history of COPD, severe, history of chronic cor pulmonale, history of nonischemic cardiomyopathy and LV dysfunction as well as history of chronic atrial fibrillation maintained on Coumadin. Patient is also known to have history of moderate mitral regurgitation. Patient is normally on oxygen at 2 L/min, she is normally on diuretics, and she was very seen about a week ago in my office with worsening swelling of her lower extremities, and patient was placed on Aldactone in addition to her Lasix. Her leg swelling improved, however patient came into the ER on 08/28/2024, came in mostly with worsening shortness of breath, cough, wheezing, apparently when she was brought in by EMS she was found to be in tripod position and she was breathing quite heavy. Patient was placed on BiPAP, that seemed to improve her pulmonary status significantly on BiPAP. In the ER, patient was noted to have positive screening for acute influenza A. Last night I was notified about this patient about her shortness of breath and being BiPAP dependent, patient is known to have history of alcohol drinking, and there was also a concern about the patient going into alcohol withdrawal. Patient required some Ativan, admitted to the ICU for close monitoring. I was asked to see her in consultation. In addition to her COPD, patient had positive screening for influenza A. Today I saw the patient in the ICU, she is still on BiPAP 12/5/40%, patient is receiving Lasix, she is also on Aldactone, patient is on Tamiflu, and she is on her usual bronchodilators and on Solu-Medrol. WBC count is 11.9 hemoglobin 12.3 INR is 3.1 electrolytes are normal renal profile is normal troponin is less than 0.012 Evaluated today on 08/31/2024, patient remains in the ICU, patient is on 4 L nasal cannula, last night she was on BiPAP 12/5/40%, patient remains on bronchodilators, Lasix, Coumadin, and she is also on doxycycline. Baseline FEV1 from my office chart is 42% at best. Clearly the patient has severe underlying COPD. Patient is now on nasal cannula, had to be on BiPAP yesterday. Chest x- ray today is suggestive of interstitial edema, underlying pneumonia is felt to be less likely but not entirely ruled out. WBC count is 11.4 hemoglobin is 14.3 INR is 3.3 electrolytes are normal bicarb is 4 0 BUN is 27 creatinine 0.66 Objective - Vital Signs Vital signs: Vital Signs Temp 99.7 F H 08/31/24 08:00 Pulse 98 08/31/24 11:00 Resp 28 H 08/31/24 11:00 BP 130/62 08/31/24 11:00 Pulse Ox 95 08/31/24 11:00 FiO2 40 08/31/24 04:25 Intake & Output 08/30/24 08/31/24 08/31/24 18:59 06:59 18:59 Intake Total 400 130 20 Output Total 2225 1515 785 Balance -3024 -1212 -884 Weight 71 kg 86.7 kg Intake: IV 400 130 20 ACETAMINOPHEN IV (For NPO 100 ) 1,000 mg In Empty Bag 1 bag @ 400 mls/hr IVPB Q6HR [facility] Rx#:[id number] Normal Saline as KVO @ 100 130 20 10mL/hr Potassium Chloride 10 meq 200 In Water For Injection 1 100ml.bag @ 100 mls/hr IVPB Q1HR [facility] Rx#: [id number] Output: Urine 2225 1515 785 Other: Voiding Method Indwelling Catheter Indwelling Catheter Indwelling Catheter - Exam General: Revealed 72-year-old female in no distress, on 4 L nasal cannula patient is a little lethargic, confused. Head: Atraumatic normocephalicPupils are equal, round. Sclerae anicteric. Moist mucous membranes no JVD LUNGS: Diminished breath sound bilaterally some wheezing on forced expiratory maneuver HEART: Regular rate and rhythm. S1 and S2 heard. ABDOMEN: Soft nontender no rebound no guarding positive bowel sounds EXTREMITIES: No clubbing edema or cyanosis a NEUROLOGIC: Patient is arousable, seems to be a bit confused, otherwise no gross focal deficit Psychiatric: Normal mood affect and confused mental status. - Labs CBC & Chem 7: 08/31/24 05:20 08/31/24 05:20 Labs: Abnormal Lab Results - Last 24 Hours (Table) 08/31/24 08/31/24 08/31/24 Range/Units 05:20 05:20 05:20 WBC 11.4 H (3.8-10.6) k/uL MCV 108.0 H (80.0-100.0) fL Neutrophils # 10.6 H (1.3-7.7) k/uL Lymphocytes # 0.2 L (1.0-4.8) k/uL Macrocytosis Marked A PT 32.4 H (10.0-12.5) sec INR 3.3 H (<1.2) Chloride 92 L (98-107) mmol/L Carbon Dioxide 40 H (22-30) mmol/L BUN 27 H (7-17) mg/dL Glucose 117 H (74-99) mg/dL Microbiology - Last 24 Hours (Table) 08/29/24 23:15 Blood Culture - Preliminary Blood Assessment and Plan Assessment: Impression: Acute influenza A chronic hypoxic respiratory failure Paroxysmal atrial fibrillation Acute exacerbation of COPD Acute on chronic systolic congestive heart failure Acute metabolic encephalopathy History of alcohol use Moderate mitral regurgitation Nonischemic cardiomyopathy Hypertension Dyslipidemia History of hypothyroidism Recommendation: Continue to monitor in the ICU for now. As the patient seems to have marginal pulmonary status. Continue alternating BiPAP with nasal cannula as needed Continue Tamiflu Continue bronchodilators Continue doxycycline Continue diuretics GI DVT prophylaxis Continue steroids [place] protocol for history of alcohol use Will continue to follow Time with Patient: Less than 30
--- NOTE | 2024-08-31 13:08 | P.PN ---
Subjective Progress Note Date: 08/31/24 Patient is a 74-year-old female with past medical history significant for COPD, CHF, atrial fibrillation on Coumadin, and hypertension presents today for 1 week worsening of breathing as well as significant cough. She wears 2 L of oxygen at night but says that she has had to wear 2 L / for the past week. About 5 days ago she saw Dr. Lorenzo and he started her on spironolactone due to leg swelling and fluid retention. She states that the leg swelling has improved since. She has experienced COPD exacerbations like this before. Of note her granddaughter had the flu last week. Treated for management of acute on chronic hypoxic respiratory failure secondary to COPD exacerbation, influenza A, acute HFrEF exacerbation. Cardiology consulted. Started on IV Lasix, Coumadin continued, TTE ordered. Severe LV systolic dysfunction with EF 35%, severe pulmonary hypertension. Added Farxiga to her current medical regimen. Elevated LFTs, bilirubin, abdominal ultrasound was obtained and showed no acute finding, negative Underwood sign, adherent gallstone versus small polyp measuring 3 mm. Nonobstructing renal calculi on the right. 08/29 in the evening patient became progressively short of breath, started hallucinating. She was placed on BiPAP, given her history of alcohol drinking, she was started on CIWA with Ativan, transferred to ICU for close monitoring. Subjective: Patient seen this morning. She was sitting up in the chair. However she was encephalopathic so no history could be obtained from the patient. She was mumbling her words. She is not really following any commands. Vitals Signs Reviewed. General examination - Alert and Oriented 0 in NAD, appears chronically debilitated Heart - + S1S2 no murmurs Lungs -diminished sounds bilaterally Abdomen soft NT ND +ve BS Extremities - No edema [facility] [employer] - Moving all 4 extremities spontaneously, not following any commands Psych -confused Assessment and Plan: Acute on chronic hypoxic respiratory failure multifactorial, secondary to acute influenza A, acute COPD exacerbation, acute on chronic HFrEF Severe pulmonary hypertension Acute COPD exacerbation Anxiety Acute on chronic systolic heart failure Severe pulmonary hypertension Moderate mitral regurgitation I have reviewed chest x-ray from this morning that shows interstitial edema Continue with IV Lasix 40 mg twice daily and spironolactone 25 mg p.o. daily Continue with IV Solu-Medrol 60 mg every 8 hours and doxycycline 100 mg p.o. twice daily Continue with DuoNeb 4 times a day Continue Symbicort 162 puffs twice daily Continue with Farxiga 10 mg p.o. daily and metoprolol 50 mg p.o. twice daily and losartan 12.5 mg p.o. daily WBC this morning 11.4. CBC to monitor infection Creatinine 0.66 and potassium 3.4. Trend BMP while patient on diuretics Notes was tolerated. Patient currently on 3 L nasal cannula Cardiology on board. Digital Associate on board Acute toxic metabolic encephalopathy secondary to the above History of alcohol abuse Continue with Librium 25 mg p.o. 3 times daily and thiamine 1 mg p.o. daily CIWA protocol Patient still confused this morning Paroxysmal Atrial fibrillation Pharmacy to dose Coumadin At this morning 3.3. Pharmacy to adjust dose for goal of 2-3 Continue with amiodarone 200 mg p.o. daily Continue beta-sudha Hypertension Continue with home meds as mentioned above DVT prophylaxis: Patient on Coumadin Anticipated discharge pending Clinical course Anticipated discharge time: pending Clinical course Objective - Vital Signs Vital signs: Vital Signs Temp 99.9 F H 08/31/24 12:00 Pulse 88 08/31/24 13:00 Resp 26 H 08/31/24 13:00 BP 140/70 08/31/24 13:00 Pulse Ox 92 L 08/31/24 13:00 FiO2 40 08/31/24 04:25 Intake & Output 08/30/24 08/31/24 08/31/24 18:59 06:59 18:59 Intake Total 400 130 20 Output Total 2225 1515 785 Balance -2669 -4859 -763 Weight 71 kg 86.7 kg 86.7 kg Intake: IV 400 130 20 ACETAMINOPHEN IV (For NPO 100 ) 1,000 mg In Empty Bag 1 bag @ 400 mls/hr IVPB Q6HR [facility] Rx#:[id number] Normal Saline as KVO @ 100 130 20 10mL/hr Potassium Chloride 10 meq 200 In Water For Injection 1 100ml.bag @ 100 mls/hr IVPB Q1HR [facility] Rx#: [id number] Output: Urine 2225 1515 785 Other: Voiding Method Indwelling Catheter Indwelling Catheter Indwelling Catheter - Labs CBC & Chem 7: 08/31/24 05:20 08/31/24 05:20 Labs: Abnormal Lab Results - Last 24 Hours (Table) 02/04/1608/31/24 08/31/24 Range/Units 05:20 05:20 05:20 WBC 11.4 H (3.8-10.6) k/uL MCV 108.0 H (80.0-100.0) fL Neutrophils # 10.6 H (1.3-7.7) k/uL Lymphocytes # 0.2 L (1.0-4.8) k/uL Macrocytosis Marked A PT 32.4 H (10.0-12.5) sec INR 3.3 H (<1.2) Chloride 92 L (98-107) mmol/L Carbon Dioxide 40 H (22-30) mmol/L BUN 27 H (7-17) mg/dL Glucose 117 H (74-99) mg/dL Microbiology - Last 24 Hours (Table) 08/29/24 23:15 Blood Culture - Preliminary Blood
--- NOTE | 2024-08-31 15:25 | P.PN ---
Subjective Progress Note Date: 08/31/24 Was seen and evaluated this morning but apparently she was transferred to the intensive care unit overnight because of change in mental status and deterioration of the respiratory status but currently she is on BiPAP. She underwent an echo which revealed cardiomyopathy with EF appeared to be in the range of 30% with evidence of severe pulmonary hypertension and she is on maximized medical treatment for cardiomyopathy except that she is not on SGLT2 inhibitors and with that and going to add Farxiga to the current medical regimen. Also follow-up with the second set of troponin. She continues to be on Lasix IV. Kidney function remains stable. August 31, 2024 The patient was seen and evaluated this morning. She is overall doing better. She was on BiPAP and now she is on nasal cannula which she has been diuresing very well with the kidney function remains stable. She is on oral anticoagula tion with Coumadin. From a cardiovascular standpoint of view, we will continue the current medical regimen including the current dose of Lasix IV and continue monitor the kidney function and electrolytes and follow-up with the patient. The physical examination is remarkable for bilateral rhonchi and bilateral lower extremities edema ASSESSMENT: Acute influenza A Shortness of breath Acute on chronic heart failure with reduced EF Paroxysmal atrial fibrillation, on Coumadin outpatient History of nonischemic cardiomyopathy Hypertension Hyperlipidemia Moderate mitral regurgitation PLAN: Continue anticoagulation with Coumadin. Monitor INR. Continue IV Lasix Daily weights, accurate intake and output, and monitoring of kidney function Further recommendations pending patient course Objective - Vital Signs Vital signs: Vital Signs Temp 99.9 F H 08/31/24 12:00 Pulse 88 08/31/24 13:00 Resp 26 H 08/31/24 13:00 BP 140/70 08/31/24 13:00 Pulse Ox 92 L 08/31/24 13:00 FiO2 40 08/31/24 04:25 Intake & Output 08/30/24 08/31/24 08/31/24 18:59 06:59 18:59 Intake Total 400 130 20 Output Total 0108 1249 787 Balance -8891 -9561 -454 Weight 71 kg 86.7 kg 86.7 kg Intake: IV 400 130 20 ACETAMINOPHEN IV (For NPO 100 ) 1,000 mg In Empty Bag 1 bag @ 400 mls/hr IVPB Q6HR [facility] Rx#:[id number] Normal Saline as KVO @ 100 130 20 10mL/hr Potassium Chloride 10 meq 200 In Water For Injection 1 100ml.bag @ 100 mls/hr IVPB Q1HR [facility] Rx#: [id number] Output: Urine 2348 4735 785 Other: Voiding Method Indwelling Catheter Indwelling Catheter Indwelling Catheter - Labs CBC & Chem 7: 08/31/24 05:20 08/31/24 05:20 Labs: Abnormal Lab Results - Last 24 Hours (Table) 08/31/24 08/31/24 08/31/24 Range/Units 05:20 05:20 05:20 WBC 11.4 H (3.8-10.6) k/uL MCV 108.0 H (80.0-100.0) fL Neutrophils # 10.6 H (1.3-7.7) k/uL Lymphocytes # 0.2 L (1.0-4.8) k/uL Macrocytosis Marked A PT 32.4 H (10.0-12.5) sec INR 3.3 H (<1.2) Chloride 92 L (98-107) mmol/L Carbon Dioxide 40 H (22-30) mmol/L BUN 27 H (7-17) mg/dL Glucose 117 H (74-99) mg/dL Microbiology - Last 24 Hours (Table) 08/29/24 23:15 Blood Culture - Preliminary Blood
[2024-08-31] MEDS: WARFARIN 0.5 MG TAB PO ONE (17:54)
[2024-09-01 05:36] LABS: African American GFR (CKD) >90 (>60 ml/min/1.73 sqM); Blood Urea Nitrogen 39 mg/dL (7-17); Calcium 8.6 mg/dL (8.4-10.2); Chloride 93 mmol/L (98-107); Glucose 154 mg/dL (74-99); Non-African American GFR(CKD) 88 (>60 ml/min/1.73 sqM); Potassium 3.9 mmol/L (3.5-5.1); Sodium 150 mmol/L (137-145)
[2024-09-01 05:42] LABS: Anion Gap 12 mmol/L
[2024-09-01 05:53] LABS: INR 4.8 (<1.2)
[2024-09-01 05:54] LABS: HCT 46.8 % (34.0-46.0); HGB 14.4 gm/dL (11.4-16.0); Hypochromasia Marked; MCH 34.1 pg (25.0-35.0); MCHC 30.8 g/dL (31.0-37.0); MCV 110.5 fL (80.0-100.0); Macrocytosis Marked; Mean Platelet Volume 8.8; Platelet Count 169 k/uL (150-450); RBC 4.23 m/uL (3.80-5.40); RDW 14.2 % (11.5-15.5); WBC 11.4 k/uL (3.8-10.6)
[2024-09-01 06:03] LABS: Carbon Dioxide 45 mmol/L (22-30)
[2024-09-01 06:04] LABS: Prothrombin Time 47.6 sec (10.0-12.5)
--- NOTE | 2024-09-01 08:26 | XR ---
EXAMINATION TYPE: XR chest 1V portable DATE OF EXAM: 09/01/2024 4:48 AM COMPARISON: 08/31/2024 CLINICAL INDICATION: Female, 74 years old with history of fluid overload/Flu A+, , FINDINGS: Heart is moderately enlarged. Mild hyperinflation. Diffuse medium interstitial opacities without markie k consolidation or pleural effusion. IMPRESSION: Overall similar moderate interstitial opacities. [facility], Workstation: [facility], 09/01/2024 8:24 AM
[2024-09-01] MEDS: WARFARIN 0.5 MG TAB PO ONE (08:48)
[2024-09-01] MEDS ORDERED: Potassium Replacement Protocol 1 EACH MISC MISCELLANE PRN (09:21)
[2024-09-01] MEDS ORDERED: Magnesium Replacement Protocol 1 EACH MISC MISCELLANE PRN (09:21)
[2024-09-01 09:36] LABS: ABG Oxygen Saturation 93.2 % (94-97); ABG PH 7.39 (7.35-7.45); ABG PO2 69 mmHg (83-108); ABG PO2, Temp Corrected 68.8; Allen Test Performed? Yes
[2024-09-01 09:38] LABS: ABG HCO3 42 mmol/L (21-25); ABG PCO2 79 mmHg (35-45)
[2024-09-01 09:39] LABS: ABG Base Excess 22.3 mmol/L; ABG TCO2 79 mmol/L (19-24)
[2024-09-01] MEDS ORDERED: HALOPERIDOL LACTATE 5 MG/ML 1 ML VIAL IVP PRN (09:55)
[2024-09-01] MEDS: POTASSIUM CHLORIDE 10 MEQ in WATER FOR INJECTION 1 100ML.BAG IVPB SCH (10:02)
[2024-09-01] MEDS: HALOPERIDOL LACTATE 5 MG/ML 1 ML VIAL IVP PRN (10:02)
[2024-09-01] MEDS: MAGNESIUM SULFATE-D5W PMX 1 GM in DEXTROSE/WATER 1 100ML.BAG IVPB ONE (10:02)
[2024-09-01] MEDS: HYDROmorphone 0.5 MG/0.5 ML SYRINGE IVP PRN (10:03)
--- NOTE | 2024-09-01 12:35 | P.PN ---
Subjective Progress Note Date: 09/01/24 This is a 74-year-old female, familiar to my service, patient is known to have history of COPD, severe, history of chronic cor pulmonale, history of nonischemic cardiomyopathy and LV dysfunction as well as history of chronic atrial fibrillation maintained on Coumadin. Patient is also known to have history of moderate mitral regurgitation. Patient is normally on oxygen at 2 L/min, she is normally on diuretics, and she was very seen about a week ago in my office with worsening swelling of her lower extremities, and patient was placed on Aldactone in addition to her Lasix. Her leg swelling improved, however patient came into the ER on 08/28/2024, came in mostly with worsening shortness of breath, cough, wheezing, apparently when she was brought in by EMS she was found to be in tripod position and she was breathing quite heavy. Patient was placed on BiPAP, that seemed to improve her pulmonary status significantly on BiPAP. In the ER, patient was noted to have positive screening for acute influenza A. Last night I was notified about this patient about her shortness of breath and being BiPAP dependent, patient is known to have history of alcohol drinking, and there was also a concern about the patient going into alcohol withdrawal. Patient required some Ativan, admitted to the ICU for close monitoring. I was asked to see her in consultation. In addition to her COPD, patient had positive screening for influenza A. Today I saw the patient in the ICU, she is still on BiPAP 12/5/40%, patient is receiving Lasix, she is also on Aldactone, patient is on Tamiflu, and she is on her usual bronchodilators and on Solu-Medrol. WBC count is 11.9 hemoglobin 12.3 INR is 3.1 electrolytes are normal renal profile is normal troponin is less than 0.012 Evaluated today on 08/31/2024, patient remains in the ICU, patient is on 4 L nasal cannula, last night she was on BiPAP 12/5/40%, patient remains on bronchodilators, Lasix, Coumadin, and she is also on doxycycline. Baseline FEV1 from my office chart is 42% at best. Clearly the patient has severe underlying COPD. Patient is now on nasal cannula, had to be on BiPAP yesterday. Chest x- ray today is suggestive of interstitial edema, underlying pneumonia is felt to be less likely but not entirely ruled out. WBC count is 11.4 hemoglobin is 14.3 INR is 3.3 electrolytes are normal bicarb is 4 0 BUN is 27 creatinine 0.66 The patient is seen today September 01, 2024 in follow-up in the intensive care unit. She is currently sitting up in bed. She is quite restless. Moving from [id number]. She was on BiPAP 12/5 and 40% FiO2. She is currently on 4 L nasal cannula. Her O2 saturation did drop into the 70s when she had her oxygen off. She did require Ativan throughout the night. Recent arterial blood gases revealed a PH of 69, pCO2 79 and a pH of 7.38. She is continued on DuoNeb inhalations, Symbicort, Solu-Medrol. Empiric antibiotics in the form of doxycycline. She remains on IV diuretics. Remains on the [facility] protocol. Anticoagulated with warfarin. White count 11.4. Hemoglobin 14.4. Platelets 169. INR 4.8. Sodium 150. Potassium 3.9. Bicarb 45. BUN 39. Creatinine 0.67. Chest x-ray reveals similar moderate interstitial opacities. Objective - Vital Signs Vital signs: Vital Signs Temp 98.4 F 09/01/24 11:27 Pulse 78 09/01/24 12:11 Resp 13 09/01/24 12:11 BP 119/54 09/01/24 11:00 Pulse Ox 93 L 09/01/24 11:00 FiO2 40 09/01/24 11:57 Intake & Output 08/31/24 09/01/24 09/01/24 18:59 06:59 18:59 Intake Total 20 20 220 Output Total 1065 1385 570 Balance -1045 1365 -350 Weight 86.7 kg 86.3 kg Intake: IV 20 20 220 Invasive Line 4 20 20 Magnesium Sulfate-D5w Pmx 100 1 gm In Dextrose/Water 1 100ml.bag @ 100 mls/hr IVPB ONCE ONE Rx#: [id number] Normal Saline as KVO @ 20 10mL/hr Potassium Chloride 10 meq 100 In Water For Injection 1 100ml.bag @ 100 mls/hr IVPB Q1H [facility] Rx#: [id number] Output: Urine 1065 1385 570 Other: Voiding Method Indwelling Catheter Indwelling Catheter Indwelling Catheter - Exam GENERAL EXAM: Alert, Frieda, confused 74-year-old female, on BiPAP 12/5 and 40% FiO2. HEAD: Normocephalic. EYES: Normal reaction of pupils, equal size. NOSE: Clear with pink turbinates. THROAT: No erythema or exudates. NECK: No masses, no JVD. CHEST: No chest wall deformity. LUNGS: Equal air entry with few scattered rhonchi. CVS: S1 and S2 normal with no audible murmur, regular rhythm. ABDOMEN: No hepatosplenomegaly, normal bowel sounds, no guarding or rigidity. SPINE: No scoliosis or deformity SKIN: No rashes CENTRAL NERVOUS SYSTEM: No focal deficits, tone is normal in all 4 extremities. EXTREMITIES: There is no peripheral edema. No clubbing, no cyanosis. Peripheral pulses are intact. - Labs CBC & Chem 7: 09/01/24 04:21 09/01/24 04:21 Labs: Abnormal Lab Results - Last 24 Hours (Table) 09/01/24 09/01/24 09/01/24 Range/Units 04:21 04:21 04:21 WBC 11.4 H (3.8-10.6) k/uL Hct 46.8 H (34.0-46.0) % MCV 110.5 H (80.0-100.0) fL MCHC 30.8 L (31.0-37.0) g/dL Macrocytosis Marked A PT 47.6 H (10.0-12.5) sec INR 4.8 H (<1.2) ABG pCO2 (35-45) mmHg ABG pO2 (83-108) mmHg ABG HCO3 (21-25) mmol/L ABG Total CO2 (19-24) mmol/L ABG O2 Saturation (94-97) % Sodium 150 H (137-145) mmol/L Chloride 93 L (98-107) mmol/L Carbon Dioxide 45 H* (22-30) mmol/L BUN 39 H (7-17) mg/dL Glucose 154 H (74-99) mg/dL 09/01/24 Range/Units 09:34 WBC (3.8-10.6) k/uL Hct (34.0-46.0) % MCV (80.0-100.0) fL MCHC (31.0-37.0) g/dL Macrocytosis PT (10.0-12.5) sec INR (<1.2) ABG pCO2 79 H* (35-45) mmHg ABG pO2 69 L (83-108) mmHg ABG HCO3 42 H* (21-25) mmol/L ABG Total CO2 79 H (19-24) mmol/L ABG O2 Saturation 93.2 L (94-97) % Sodium (137-145) mmol/L Chloride (98-107) mmol/L Carbon Dioxide (22-30) mmol/L BUN (7-17) mg/dL Glucose (74-99) mg/dL Microbiology - Last 24 Hours (Table) 08/29/24 23:15 Blood Culture - Preliminary Blood Assessment and Plan Assessment: Acute on chronic hypoxic respiratory failure secondary to a COPD exacerbation, systolic CHF exacerbation, influenza A Acute influenza A Acute exacerbation of COPD Acute on chronic systolic congestive heart failure History of alcohol use Acute metabolic encephalopathy secondary to above Paroxysmal atrial fibrillation, anticoagulated with warfarin Moderate mitral regurgitation Nonischemic cardiomyopathy Hypertension Dyslipidemia Hypothyroidism Plan: The patient was seen and evaluated Chest x-ray, ABGs, labs and medications reviewed The patient sodium is up to 150 Add D5W at 75 mls per hour Hold warfarin today Check LFTs The patient is fairly altered today Continue the CIWA protocol Add Dilaudid 0.5 mg every 6 hours as needed Add Haldol 4 to 8 mg every 6 hours as needed Continue BiPAP support for now Alternate with nasal cannula as tolerated We will continue to follow and make further recommendations based on her clinical status I have personally seen and examined the patient, performed the documentation and the assessment and plan as written. Number of minutes spent on the visit: 20 Dictation was produced using [employer] dictation software. Please excuse any grammatical, word or spelling errors.
[2024-09-01 13:40] LABS: ALT 73 U/L (4-34); AST 70 U/L (14-36)
[2024-09-01] MEDS: PANTOPRAZOLE 40 MG/10 ML VIAL IVP SCH (15:17)
[2024-09-01] MEDS: THIAMINE 100 MG/ML 2 ML VIAL IVP SCH (16:40)
[2024-09-01] MEDS: METOPROLOL TARTRATE 5 MG/5 ML VIAL IVP SCH (17:06)
--- NOTE | 2024-09-01 17:10 | P.PN ---
Subjective Progress Note Date: 09/01/24 Was seen and evaluated this morning but apparently she was transferred to the intensive care unit overnight because of change in mental status and deterioration of the respiratory status but currently she is on BiPAP. She underwent an echo which revealed cardiomyopathy with EF appeared to be in the range of 30% with evidence of severe pulmonary hypertension and she is on maximized medical treatment for cardiomyopathy except that she is not on SGLT2 inhibitors and with that and going to add Farxiga to the current medical regimen. Also follow-up with the second set of troponin. She continues to be on Lasix IV. Kidney function remains stable. August 31, 2024 The patient was seen and evaluated this morning. She is overall doing better. She was on BiPAP and now she is on nasal cannula which she has been diuresing very well with the kidney function remains stable. She is on oral anticoagul ation with Coumadin. From a cardiovascular standpoint of view, we will continue the current medical regimen including the current dose of Lasix IV and continue monitor the kidney function and electrolytes and follow-up with the patient. The physical examination is remarkable for bilateral rhonchi and bilateral lower extremities edema 09/01/2024 Patient is seen and examined at bedside this a.m. She is on BiPAP support. Patient was getting agitated for which she received some Dilaudid and currently patient is somnolent. On exam Regular pulses, S1-S2 audible, no significant murmurs appreciated On BiPAP support, crackles or rhonchi audible in bilateral lung perez 1+ edema in bilateral lower extremity, mild elevated JVP ASSESSMENT: Acute influenza A Shortness of breath Acute on chronic heart failure with reduced EF Cardiomyopathy with a EF of 35% Severe pulmonary hypertension Paroxysmal atrial fibrillation, on Coumadin outpatient History of nonischemic cardiomyopathy Hypertension Hyperlipidemia Moderate mitral regurgitation PLAN: Patient is not tolerating oral medications. She is on Farxiga, amiodarone 100 mg, metoprolol, warfarin which are on hold at this time Continue IV metoprolol 2.5 mg every 8 hours. Hold if heart rate less than 60 and sleep less than 100. Once patient starts tolerating oral medication Continue IV Lasix 40 mg twice daily Objective - Vital Signs Vital signs: Vital Signs Temp 98.4 F 09/01/24 11:27 Pulse 80 09/01/24 15:42 Resp 13 09/01/24 15:42 BP 115/52 09/01/24 14:00 Pulse Ox 94 L 09/01/24 14:00 FiO2 40 09/01/24 15:34 Intake & Output 08/31/24 09/01/24 09/01/24 18:59 06:59 18:59 Intake Total 20 20 320 Output Total 1065 1385 895 Balance -2099 -6294 -725 Weight 86.7 kg 86.3 kg Intake: IV 20 20 320 Invasive Line 4 20 20 Magnesium Sulfate-D5w Pmx 100 1 gm In Dextrose/Water 1 100ml.bag @ 100 mls/hr IVPB ONCE ONE Rx#: [id number] Normal Saline as KVO @ 20 10mL/hr Potassium Chloride 10 meq 200 In Water For Injection 1 100ml.bag @ 100 mls/hr IVPB Q1H [facility] Rx#: [id number] Output: Urine 1065 1385 895 Other: Voiding Method Indwelling Catheter Indwelling Catheter Indwelling Catheter - Labs CBC & Chem 7: 09/01/24 04:21 09/01/24 04:21 Labs: Abnormal Lab Results - Last 24 Hours (Table) 09/01/24 09/01/24 09/01/24 Range/Units 04:21 04:21 04:21 WBC 11.4 H (3.8-10.6) k/uL Hct 46.8 H (34.0-46.0) % MCV 110.5 H (80.0-100.0) fL MCHC 30.8 L (31.0-37.0) g/dL Macrocytosis Marked A PT 47.6 H (10.0-12.5) sec INR 4.8 H (<1.2) ABG pCO2 (35-45) mmHg ABG pO2 (83-108) mmHg ABG HCO3 (21-25) mmol/L ABG Total CO2 (19-24) mmol/L ABG O2 Saturation (94-97) % Sodium 150 H (137-145) mmol/L Chloride 93 L (98-107) mmol/L Carbon Dioxide 45 H* (22-30) mmol/L BUN 39 H (7-17) mg/dL Glucose 154 H (74-99) mg/dL AST (14-36) U/L ALT (4-34) U/L 09/01/24 09/01/24 Range/Units 04:21 09:34 WBC (3.8-10.6) k/uL Hct (34.0-46.0) % MCV (80.0-100.0) fL MCHC (31.0-37.0) g/dL Macrocytosis PT (10.0-12.5) sec INR (<1.2) ABG pCO2 79 H* (35-45) mmHg ABG pO2 69 L (83-108) mmHg ABG HCO3 42 H* (21-25) mmol/L ABG Total CO2 79 H (19-24) mmol/L ABG O2 Saturation 93.2 L (94-97) % Sodium (137-145) mmol/L Chloride (98-107) mmol/L Carbon Dioxide (22-30) mmol/L BUN (7-17) mg/dL Glucose (74-99) mg/dL AST 70 H (14-36) U/L ALT 73 H (4-34) U/L Microbiology - Last 24 Hours (Table) 08/29/24 23:15 Blood Culture - Preliminary Blood
--- NOTE | 2024-09-01 17:16 | P.PN ---
Subjective Progress Note Date: 09/01/24 Patient is a 74-year-old female with past medical history significant for COPD, CHF, atrial fibrillation on Coumadin, and hypertension presents today for 1 week worsening of breathing as well as significant cough. She wears 2 L of oxygen at night but says that she has had to wear 2 L 24/ for the past week. About 5 days ago she saw Dr. Lorenzo and he started her on spironolactone due to leg swelling and fluid retention. She states that the leg swelling has improved since. She has experienced COPD exacerbations like this before. Of note her granddaughter had the flu last week. Treated for management of acute on chronic hypoxic respiratory failure secondary to COPD exacerbation, influenza A, acute HFrEF exacerbation. Cardiology consulted. Started on IV Lasix, Coumadin continued, TTE ordered. Severe LV systolic dysfunction with EF 35%, severe pulmonary hypertension. Added Farxiga to her current medical regimen. Elevated LFTs, bilirubin, abdominal ultrasound was obtained and showed no acute finding, negative Underwood sign, adherent gallstone versus small polyp measuring 3 mm. Nonobstructing renal calculi on the right. 08/29 in the evening patient became progressively short of breath, started hallucinating. She was placed on BiPAP, given her history of alcohol drinking, she was started on CIWA with Ativan, transferred to ICU for close monitoring. Subjective: She was hypoxic and restless this morning requiring Haldol. Currently on BiPAP 12/5 FiO2 40%. She is sedated. CBC, Coag panel, CMP significant for WBC 11.4, Hct 46.8, MCV 110.5, PT 47.6, INR 4.8, Na 150, Cl 93, bicarb 45, BUN 39, glu 154, AST 70, ALT 73. Vitals Signs Reviewed. 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 Continue with IV Lasix 40 mg twice daily and spironolactone 25 mg p.o. daily Continue with IV Solu-Medrol 60 mg every 8 hours and doxycycline 100 mg p.o. twice daily Continue with DuoNeb 4 times a day Continue Symbicort 162 puffs twice daily Continue with Farxiga 10 mg p.o. daily and metoprolol 50 mg p.o. twice daily and losartan 12.5 mg p.o. daily WBC this morning 11.4. CBC to monitor infection Creatinine 0.67 and potassium 3.9. Trend BMP while patient on diuretics Notes was tolerated. Patient currently on 3 L nasal cannula Cardiology on board. Neonatal Nurse Practitioner on board Acute toxic metabolic encephalopathy secondary to the above History of alcohol abuse Continue with Librium 25 mg p.o. 3 times daily and thiamine 1 mg p.o. daily Haldol 4 mg IV Q6H PRN agitation CIWA protocol with Ativan PRN Paroxysmal Atrial fibrillation Pharmacy to dose Coumadin At this morning 4.8. Pharmacy to adjust dose for goal of 2-3 Continue with amiodarone 200 mg p.o. daily Continue beta-sudha Hypertension Continue with home meds as mentioned above DVT prophylaxis: Patient on Coumadin Anticipated discharge pending Clinical course Anticipated discharge time: pending Clinical course Objective - Vital Signs Vital signs: Vital Signs Temp 98.4 F 09/01/24 11:27 Pulse 80 09/01/24 15:42 Resp 13 09/01/24 15:42 BP 115/52 09/01/24 14:00 Pulse Ox 94 L 09/01/24 14:00 FiO2 40 09/01/24 15:34 Intake & Output 08/31/24 09/01/24 09/01/24 18:59 06:59 18:59 Intake Total 20 20 320 Output Total 1065 1385 895 Balance -8474 -2371 -845 Weight 86.7 kg 86.3 kg Intake: IV 20 20 320 Invasive Line 4 20 20 Magnesium Sulfate-D5w Pmx 100 1 gm In Dextrose/Water 1 100ml.bag @ 100 mls/hr IVPB ONCE ONE Rx#: [id number] Normal Saline as KVO @ 20 10mL/hr Potassium Chloride 10 meq 200 In Water For Injection 1 100ml.bag @ 100 mls/hr IVPB Q1H [facility] Rx#: [id number] Output: Urine 1065 1385 895 Other: Voiding Method Indwelling Catheter Indwelling Catheter Indwelling Catheter - Labs CBC & Chem 7: 09/01/24 04:21 09/01/24 04:21 Labs: Abnormal Lab Results - Last 24 Hours (Table) 09/01/24 09/01/24 09/01/24 Range/Units 04:21 04:21 04:21 WBC 11.4 H (3.8-10.6) k/uL Hct 46.8 H (34.0-46.0) % MCV 110.5 H (80.0-100.0) fL MCHC 30.8 L (31.0-37.0) g/dL Macrocytosis Marked A PT 47.6 H (10.0-12.5) sec INR 4.8 H (<1.2) ABG pCO2 (35-45) mmHg ABG pO2 (83-108) mmHg ABG HCO3 (21-25) mmol/L ABG Total CO2 (19-24) mmol/L ABG O2 Saturation (94-97) % Sodium 150 H (137-145) mmol/L Chloride 93 L (98-107) mmol/L Carbon Dioxide 45 H* (22-30) mmol/L BUN 39 H (7-17) mg/dL Glucose 154 H (74-99) mg/dL AST (14-36) U/L ALT (4-34) U/L 09/01/24 09/01/24 Range/Units 04:21 09:34 WBC (3.8-10.6) k/uL Hct (34.0-46.0) % MCV (80.0-100.0) fL MCHC (31.0-37.0) g/dL Macrocytosis PT (10.0-12.5) sec INR (<1.2) ABG pCO2 79 H* (35-45) mmHg ABG pO2 69 L (83-108) mmHg ABG HCO3 42 H* (21-25) mmol/L ABG Total CO2 79 H (19-24) mmol/L ABG O2 Saturation 93.2 L (94-97) % Sodium (137-145) mmol/L Chloride (98-107) mmol/L Carbon Dioxide (22-30) mmol/L BUN (7-17) mg/dL Glucose (74-99) mg/dL AST 70 H (14-36) U/L ALT 73 H (4-34) U/L Microbiology - Last 24 Hours (Table) 08/29/24 23:15 Blood Culture - Preliminary Blood
[2024-09-01] MEDS ORDERED: WARFARIN 5 MG TAB PO SCH (18:00)
[2024-09-01] MEDS: DOXYCYCLINE 100 MG in SODIUM CHLORIDE 0.9% 100 ML IVPB SCH (21:36)
[2024-09-01] MEDS: METOPROLOL TARTRATE 5 MG/5 ML VIAL IVP STA (23:29)
[2024-09-02] MEDS: DEXTROSE 5% IN WATER 1,000 ML IV SCH (00:40)
[2024-09-02 00:47] LABS: Glucose,Whole Blood 201 mg/dL (70-110)
[2024-09-02] MEDS: DEXTROSE 5% IN WATER 100 ML with AMIODARONE 150 MG IV ONE (00:48)
[2024-09-02] MEDS: AMIODARONE 360 MG in DEXTROSE 5% IN WATER 200 ML IV ONE (01:24)
[2024-09-02] MEDS: LEVOTHYROXINE IVP 100 MCG/5 ML VIAL IV SCH (05:30)
[2024-09-02 06:15] LABS: Basophils # (A) 0.1 k/uL (0-0.2); Basophils % (A) 1 %; Eosinophils % (A) 0 %; HCT 48.7 % (34.0-46.0); HGB 14.7 gm/dL (11.4-16.0); Hypochromasia Marked; Lymphocytes # (A) 0.1 k/uL (1.0-4.8); Lymphocytes % (A) 1 %; MCH 33.9 pg (25.0-35.0); MCHC 30.2 g/dL (31.0-37.0); Macrocytosis Marked; Mean Platelet Volume 8.6; Monocytes # (A) 0.5 k/uL (0-1.0); Monocytes % (A) 4 %; Neutrophils # (A) 10.5 k/uL (1.3-7.7); Neutrophils % (A) 92 %; Platelet Count 173 k/uL (150-450); RBC 4.33 m/uL (3.80-5.40); RDW 14.2 % (11.5-15.5); WBC 11.4 k/uL (3.8-10.6)
[2024-09-02 06:21] LABS: MCV 112.4 fL (80.0-100.0)
[2024-09-02 06:28] LABS: African American GFR (CKD) >90 (>60 ml/min/1.73 sqM); Blood Urea Nitrogen 59 mg/dL (7-17); Calcium 8.5 mg/dL (8.4-10.2); Chloride 95 mmol/L (98-107); Glucose 294 mg/dL (74-99); Magnesium 2.2 mg/dL (1.6-2.3); Non-African American GFR(CKD) 88 (>60 ml/min/1.73 sqM); Potassium 4.2 mmol/L (3.5-5.1); Sodium 150 mmol/L (137-145)
[2024-09-02 06:35] LABS: Anion Gap 8 mmol/L
[2024-09-02 06:43] LABS: Carbon Dioxide 47 mmol/L (22-30)
[2024-09-02] MEDS: AMIODARONE 450 MG in DEXTROSE 5% IN WATER 250 ML IV SCH (06:46)
[2024-09-02 06:51] LABS: Prothrombin Time 72.2 sec (10.0-12.5)
[2024-09-02 06:53] LABS: INR 7.2 (<1.2)
[2024-09-02 07:20] LABS: ALT 58 U/L (4-34); AST 50 U/L (14-36); Albumin 2.6 g/dL (3.5-5.0); Alkaline Phosphatase 87 U/L (38-126); Total Bilirubin 1.7 mg/dL (0.2-1.3)
[2024-09-02] MEDS: PHYTONADIONE 10 MG in SODIUM CHLORIDE 0.9% 50 ML IVPB STA (08:12)
--- NOTE | 2024-09-02 08:14 | XR ---
EXAMINATION TYPE: XR chest 1V portable DATE OF EXAM: 09/02/2024 4:06 AM COMPARISON: 09/01/2024 CLINICAL INDICATION: Female, 74 years old with history of f/u CHF exacerbation, , FINDINGS: Patient rotated towards the left altering the normal cardiac and mediastinal contours. Heart remains mild to moderately enlarged. Hyperinflation. Diffuse interstitial opacities persist with Kevin B caroline es. Some mild patchy bibasilar densities also persist. No sizable pleural effusion on the frontal vie w. IMPRESSION: COPD with ongoing superimposed CHF with interstitial pulmonary edema. [facility], Workstation: [id number], 09/02/2024 8:12 AM
[2024-09-02 08:24] LABS: ABG Base Excess 20.5 mmol/L; ABG Oxygen Saturation 96.5 % (94-97); ABG PH 7.34 (7.35-7.45); ABG PO2 90 mmHg (83-108); ABG TCO2 55 mmol/L (19-24); Allen Test Performed? Yes
[2024-09-02 08:25] LABS: ABG PCO2 97 mmHg (35-45)
[2024-09-02 08:26] LABS: ABG HCO3 52 mmol/L (21-25)
[2024-09-02] MEDS ORDERED: LEVOTHYROXINE IVP 100 MCG/5 ML VIAL IV SCH (09:00)
[2024-09-02] MEDS ORDERED: IPRATROPIUM-ALBUTEROL 3 ML NEB INHALATION PRN (09:44)
[2024-09-02 09:57] LABS: Glucose,Whole Blood 351 mg/dL (70-110)
[2024-09-02] MEDS: MORPHINE SULFATE 4 MG/ML SYRINGE IVP STA (10:21)
[2024-09-02] MEDS: LORazepam 2 MG/ML INJ IV STA (10:22)
[2024-09-02] MEDS: CISATRACURIUM 2 MG/ML 5 ML VIAL IV PRN (10:30)
[2024-09-02] MEDS: CISATRACURIUM 2 MG/ML 5 ML VIAL IV ONE (10:30)
[2024-09-02] MEDS: SUCCINYLCHOLINE CHLORIDE 200 MG/10 ML VIAL IV STA (10:43)
[2024-09-02] MEDS ORDERED: DEXTROSE 50% SYRINGE 50 ML IVP PRN (10:48)
[2024-09-02 11:02] LABS: ABG Base Excess 20.9 mmol/L; ABG Oxygen Saturation >100.0 % (94-97); ABG PH 7.43 (7.35-7.45); ABG PO2 332 mmHg (83-108); ABG TCO2 52 mmol/L (19-24)
[2024-09-02 11:04] LABS: ABG HCO3 50 mmol/L (21-25); ABG PCO2 75 mmHg (35-45)
--- NOTE | 2024-09-02 11:09 | P.PN ---
Subjective Progress Note Date: 09/02/24 Was seen and evaluated this morning but apparently she was transferred to the intensive care unit overnight because of change in mental status and deterioration of the respiratory status but currently she is on BiPAP. She underwent an echo which revealed cardiomyopathy with EF appeared to be in the range of 30% with evidence of severe pulmonary hypertension and she is on maximized medical treatment for cardiomyopathy except that she is not on SGLT2 inhibitors and with that and going to add Farxiga to the current medical regimen. Also follow-up with the second set of troponin. She continues to be on Lasix IV. Kidney function remains stable. August 31, 2024 The patient was seen and evaluated this morning. She is overall doing better. She was on BiPAP and now she is on nasal cannula which she has been diuresing very well with the kidney function remains stable. She is on oral anticoagula tion with Coumadin. From a cardiovascular standpoint of view, we will continue the current medical regimen including the current dose of Lasix IV and continue monitor the kidney function and electrolytes and follow-up with the patient. The physical examination is remarkable for bilateral rhonchi and bilateral lower extremities edema 09/01/2024 Patient is seen and examined at bedside this a.m. She is on BiPAP support. Patient was getting agitated for which she received some Dilaudid and currently patient is somnolent. 09/02/2024 Patient is seen and examined at bedside this a.m. Patient was obtunded and not tolerating BiPAP with increased work of breathing. For this she was intubated this morning. Labs shows hemoglobin 14.7, MCV is elevated at 112, INR is elevated at 7.2 ABG shows respiratory alkalosis with hypercapnia BUN 59, creatinine 0.6 On exam Regular pulses, S1-S2 audible, no significant murmurs appreciated Intubated, ET tube in place, on ventilator support, mild crackles or rhonchi audible No significant swelling noticed in bilateral lower extremity Under sedation, detailed neuroexam was not performed ASSESSMENT: Acute influenza A Shortness of breath Acute on chronic heart failure with reduced EF Cardiomyopathy with a EF of 35% Severe pulmonary hypertension Paroxysmal atrial fibrillation, on Coumadin outpatient Supratherapeutic INR History of nonischemic cardiomyopathy Hypertension Hyperlipidemia Moderate mitral regurgitation PLAN: Patient is not tolerating oral medications. She is on Farxiga, amiodarone 100 mg, metoprolol 50 mg twice daily. Hold Farxiga Continue amiodarone at 100 mg daily. Continue metoprolol at 50 mg twice daily. Hold warfarin. Monitor INR Continue IV Lasix 40 mg twice daily Objective - Vital Signs Vital signs: Vital Signs Temp 100.0 F H 09/02/24 08:00 Pulse 142 H 09/02/24 08:00 Resp 12 09/02/24 08:00 BP 102/83 09/02/24 08:00 Pulse Ox 96 09/02/24 08:00 FiO2 100 09/02/24 10:26 Intake & Output 09/01/24 09/02/24 09/02/24 18:59 06:59 18:59 Intake Total 330 860 169 Output Total 1285 520 60 Balance -955 340 109 Weight 85.1 kg Intake: IV 330 660 169 Dextrose 5% in Water 1, 600 149 000 ml @ 75 mls/hr IV . [id number] [facility] Rx#:[id number] Invasive Line 4 30 40 10 Invasive Line 5 20 10 Magnesium Sulfate-D5w Pmx 100 1 gm In Dextrose/Water 1 100ml.bag @ 100 mls/hr IVPB ONCE ONE Rx#: [id number] Potassium Chloride 10 meq 200 In Water For Injection 1 100ml.bag @ 100 mls/hr IVPB Q1H [facility] Rx#: [id number] Intake, IV Titration 200 Amount Dextrose 5% in Water 100 100 ml @ 618 mls/hr IV .Q10M ONE with Amiodarone 150 mg Rx#:[id number] Doxycycline 100 mg In 100 Sodium Chloride 0.9% 100 ml @ 100 mls/hr IVPB Q12HR [facility] Rx#:[id number] Output: Urine 1285 520 60 Other: Voiding Method Indwelling Catheter Indwelling Catheter Indwelling Catheter - Labs CBC & Chem 7: 09/02/24 05:24 09/02/24 05:24 Labs: Abnormal Lab Results - Last 24 Hours (Table) 09/01/24 09/01/24 09/02/24 Range/Units 04:21 04:21 00:46 WBC (3.8-10.6) k/uL Hct (34.0-46.0) % MCV (80.0-100.0) fL MCHC (31.0-37.0) g/dL Neutrophils # (1.3-7.7) k/uL Lymphocytes # (1.0-4.8) k/uL Macrocytosis PT (10.0-12.5) sec INR (<1.2) ABG pH (7.35-7.45) ABG pCO2 (35-45) mmHg ABG pO2 (83-108) mmHg ABG HCO3 (21-25) mmol/L ABG Total CO2 (19-24) mmol/L ABG O2 Saturation (94-97) % Sodium (137-145) mmol/L Chloride (98-107) mmol/L Carbon Dioxide (22-30) mmol/L BUN (7-17) mg/dL Glucose (74-99) mg/dL POC Glucose (mg/dL) 201 H (70-110) mg/dL Total Bilirubin (0.2-1.3) mg/dL AST 70 H (14-36) U/L ALT 73 H (4-34) U/L Total Protein (6.3-8.2) g/dL Albumin (3.5-5.0) g/dL Procalcitonin 0.71 H (0.02-0.50) ng/mL 09/02/24 09/02/24 09/02/24 Range/Units 05:24 05:24 05:24 WBC 11.4 H (3.8-10.6) k/uL Hct 48.7 H (34.0-46.0) % MCV 112.4 H (80.0-100.0) fL MCHC 30.2 L (31.0-37.0) g/dL Neutrophils # 10.5 H (1.3-7.7) k/uL Lymphocytes # 0.1 L (1.0-4.8) k/uL Macrocytosis Marked A PT 72.2 H (10.0-12.5) sec INR 7.2 H* (<1.2) ABG pH (7.35-7.45) ABG pCO2 (35-45) mmHg ABG pO2 (83-108) mmHg ABG HCO3 (21-25) mmol/L ABG Total CO2 (19-24) mmol/L ABG O2 Saturation (94-97) % Sodium 150 H (137-145) mmol/L Chloride 95 L (98-107) mmol/L Carbon Dioxide 47 H* (22-30) mmol/L BUN 59 H (7-17) mg/dL Glucose 294 H (74-99) mg/dL POC Glucose (mg/dL) (70-110) mg/dL Total Bilirubin 1.7 H (0.2-1.3) mg/dL AST 50 H (14-36) U/L ALT 58 H (4-34) U/L Total Protein 6.0 L (6.3-8.2) g/dL Albumin 2.6 L (3.5-5.0) g/dL Procalcitonin (0.02-0.50) ng/mL 09/02/24 09/02/24 09/02/24 Range/Units 08:21 09:55 11:00 WBC (3.8-10.6) k/uL Hct (34.0-46.0) % MCV (80.0-100.0) fL MCHC (31.0-37.0) g/dL Neutrophils # (1.3-7.7) k/uL Lymphocytes # (1.0-4.8) k/uL Macrocytosis PT (10.0-12.5) sec INR (<1.2) ABG pH 7.34 L (7.35-7.45) ABG pCO2 97 H* 75 H* (35-45) mmHg ABG pO2 332 H (83-108) mmHg ABG HCO3 52 H* 50 H* (21-25) mmol/L ABG Total CO2 55 H 52 H (19-24) mmol/L ABG O2 Saturation >100.0 H (94-97) % Sodium (137-145) mmol/L Chloride (98-107) mmol/L Carbon Dioxide (22-30) mmol/L BUN (7-17) mg/dL Glucose (74-99) mg/dL POC Glucose (mg/dL) 351 H (70-110) mg/dL Total Bilirubin (0.2-1.3) mg/dL AST (14-36) U/L ALT (4-34) U/L Total Protein (6.3-8.2) g/dL Albumin (3.5-5.0) g/dL Procalcitonin (0.02-0.50) ng/mL Microbiology - Last 24 Hours (Table) 08/29/24 23:15 Blood Culture - Preliminary Blood
--- NOTE | 2024-09-02 11:20 | XR ---
EXAMINATION TYPE: XR chest 1V portable DATE OF EXAM: 09/02/2024 11:09 AM COMPARISON: 09/02/2024 CLINICAL INDICATION: Female, 74 years old with history of Tube placement, , FINDINGS: ET tube is satisfactory. NG tube side hole close to the GE junction. Consider slight further advancem ent. Left subclavian CVC tip at the cavoatrial junction. Heart mildly enlarged. Mild interstitial den sity. Similar patchy left basilar retrocardiac opacity. Overall aeration shows slight improvement. Mi ld hyperinflation. IMPRESSION: Consider COPD with superimposed pulmonary vascular congestion. Aeration is improving from prior. Ongo ing patchy left basilar and retrocardiac opacity. [facility], , 09/02/2024 11:18 AM
--- NOTE | 2024-09-02 11:38 | PCN ---
PROCEDURE NOTE PROCEDURE: Emergent intubation. PREOPERATIVE DIAGNOSIS: Respiratory failure. POSTOPERATIVE DIAGNOSIS: Respiratory failure. There was informed consent and universal timeout. The patient's procedure took place in room 254. The patient received sedation prior including 2 mg of Ativan, 5 mg of morphine, 3 mL of succinylcholine and then after intubation, 10 mg of Nimbex. We used a standard laryngoscope with #3 Eric blade and a #8 endotracheal tube. OPERATORS: Dr. Fox, Dr. Pruitt, and Dr. Sánchez. After the patient was adequately sedated and being bagged, with 100% oxygen, the laryngoscope was used to evaluate the glottic opening and visualize the glottic opening. A #8 endotracheal tube was seen to pass through the glottic opening into the trachea. The balloon on the endotracheal tube was inflated. The capnograph device was used to see that there was a good color change, and that we were properly placed. The tube was secured. The patient was connected to the mechanical ventilator. There was no immediate complication. A chest x-ray was ordered to check placement. MMODL / IJN: [id number] /
--- NOTE | 2024-09-02 11:38 | PCN ---
PROCEDURE NOTE PROCEDURE: Right radial arterial line. PREOPERATIVE DIAGNOSIS: Frequent blood draws and blood gas monitoring. POSTOPERATIVE DIAGNOSIS: Frequent blood draws and blood gas monitoring. OPERATORS: Dr. Fox, Dr. Pruitt, and Dr. Sánchez. We used the right radial artery. There was informed consent and universal timeout. The patient's procedure took place in room 254. ARTERIAL LINE PLACEMENT: Indications: Hemodynamic monitoring. A time-out was completed verifying correct patient, procedure, site, positioning, and implant(s) or special equipment if applicable. Brandon's test was performed to ensure adequate perfusion. The patient's right wrist or right groin was prepped and draped in sterile fashion. 1% Lidocaine was used to anesthetize the area. An 18G Arrow arterial line was introduced into the right radial artery. The catheter was threaded over the guide wire and the needle was removed with appropriate pulsatile blood return. Blood loss was minimal. The catheter was then sutured in place to the skin and a sterile dressing applied. Perfusion to the extremity distal to the point of catheter insertion was checked and found to be adequate. The patient tolerated the procedure well and there were no complications. We used a right radial artery. There was good waveform and blood pressure reading. The catheter was sutured in place. Sterile dressing was applied by the nurse. There was no immediate complication. MMODL / IJN: [id number] /
--- NOTE | 2024-09-02 11:38 | PCN ---
PROCEDURE NOTE PROCEDURE: Insertion of a left subclavian triple-lumen catheter. PREOPERATIVE DIAGNOSIS: Administration of fluids and pressors. POSTOPERATIVE DIAGNOSIS: Administration of fluids and pressors. OPERATORS: Dr. Fox, Dr. Pruitt, and Dr. Sánchez. There was informed consent and universal timeout. The patient's procedure took place in room 254. We used the left subclavian site. TRIPLE LUMEN CATHETER PLACEMENT: Indication: Hemodynamic monitoring/Intravenous access. A time-out was completed verifying correct patient, procedure, site, positioning, and implant(s) or special equipment if applicable. The patient was placed in a dependent position appropriate for triple lumen catheter placement based on the vein to be cannulated. The patient's left shoulder or left neck or left groin was prepped and draped in sterile fashion. 1% Lidocaine was used to anesthetize the surrounding skin area. A triple lumen 9F Cordis catheter was introduced into the left subclavian vein using Seldinger technique. The catheter was threaded smoothly over the guide wire and appropriate blood return was obtained. Each lumen of the catheter was evacuated of air and flushed with sterile saline. The catheter was then sutured in place to the skin and a sterile dressing applied. Perfusion to the extremity distal to the point of catheter insertion was checked and found to be adequate. There was no immediate complication. There was good blood return from all 3 ports. The catheter was sutured in place. Sterile dressing was applied by the nurse. The tip of the catheter was seen at the junction of superior vena cava and right atrium. The patient tolerated the procedure well without any complications whatsoever. There was informed consent and universal timeout. MMODL / IJN: [id number] /
[2024-09-02] MEDS: NOREPINEPHRINE 4 MG in SODIUM CHLORIDE 0.9% 250 ML IV SCH (11:58)
[2024-09-02] MEDS: METOPROLOL TARTRATE 50 MG TAB PO SCH (12:01)
[2024-09-02] MEDS: NOREPINEPHRINE 8 MG in SODIUM CHLORIDE 0.9% 250 ML IV SCH (12:01)
[2024-09-02 12:08] LABS: Glucose,Whole Blood 378 mg/dL (70-110)
[2024-09-02] MEDS: INSULIN REGULAR 100 UNIT in SODIUM CHLORIDE 0.9% 100 ML IV SCH (12:13)
--- NOTE | 2024-09-02 12:38 | P.PN ---
Subjective Progress Note Date: 09/02/24 This is a 74-year-old female, familiar to my service, patient is known to have history of COPD, severe, history of chronic cor pulmonale, history of nonischemic cardiomyopathy and LV dysfunction as well as history of chronic atrial fibrillation maintained on Coumadin. Patient is also known to have history of moderate mitral regurgitation. Patient is normally on oxygen at 2 L/min, she is normally on diuretics, and she was very seen about a week ago in my office with worsening swelling of her lower extremities, and patient was placed on Aldactone in addition to her Lasix. Her leg swelling improved, however patient came into the ER on 08/28/2024, came in mostly with worsening shortness of breath, cough, wheezing, apparently when she was brought in by EMS she was found to be in tripod position and she was breathing quite heavy. Patient was placed on BiPAP, that seemed to improve her pulmonary status significantly on BiPAP. In the ER, patient was noted to have positive screening for acute influenza A. Last night I was notified about this patient about her shortness of breath and being BiPAP dependent, patient is known to have history of alcohol drinking, and there was also a concern about the patient going into alcohol withdrawal. Patient required some Ativan, admitted to the ICU for close monitoring. I was asked to see her in consultation. In addition to her COPD, patient had positive screening for influenza A. Today I saw the patient in the ICU, she is still on BiPAP 12/5/40%, patient is receiving Lasix, she is also on Aldactone, patient is on Tamiflu, and she is on her usual bronchodilators and on Solu-Medrol. WBC count is 11.9 hemoglobin 12.3 INR is 3.1 electrolytes are normal renal profile is normal troponin is less than 0.012 Evaluated today on 08/31/2024, patient remains in the ICU, patient is on 4 L nasal cannula, last night she was on BiPAP 12/5/40%, patient remains on bronchodilators, Lasix, Coumadin, and she is also on doxycycline. Baseline FEV1 from my office chart is 42% at best. Clearly the patient has severe underlying COPD. Patient is now on nasal cannula, had to be on BiPAP yesterday. Chest x- ray today is suggestive of interstitial edema, underlying pneumonia is felt to be less likely but not entirely ruled out. WBC count is 11.4 hemoglobin is 14.3 INR is 3.3 electrolytes are normal bicarb is 4 0 BUN is 27 creatinine 0.66 The patient is seen today September 01, 2024 in follow-up in the intensive care unit. She is currently sitting up in bed. She is quite restless. Moving from [id number]. She was on BiPAP 12/5 and 40% FiO2. She is currently on 4 L nasal cannula. Her O2 saturation did drop into the 70s when she had her oxygen off. She did require Ativan throughout the night. Recent arterial blood gases revealed a PH of 69, pCO2 79 and a pH of 7.38. She is continued on DuoNeb inhalations, Symbicort, Solu-Medrol. Empiric antibiotics in the form of doxycycline. She remains on IV diuretics. Remains on the CINV protocol. Anticoagulated with warfarin. White count 11.4. Hemoglobin 14.4. Platelets 169. INR 4.8. Sodium 150. Potassium 3.9. Bicarb 45. BUN 39. Creatinine 0.67. Chest x-ray reveals similar moderate interstitial opacities. The patient is seen today September 02, 2024 in follow-up in the intensive care unit. Throughout the night and early this morning she became more obtunded. She was maintained on BiPAP 12/5 and 50% FiO2. PaO2 of 90, pCO2 of 97 and a pH of 7.34. She subsequently had undergone intubation and mechanical ventilatory support. She is currently on assist-control mode at a rate of 20, tidal volume 350, FiO2 100% and a PEEP of 5. Follow-up blood gases revealed a PaO2 of 332, pCO2 75 and a pH of 7.43. The FiO2 was decreased to 40%. White count 11.4. Hemoglobin 14.7. Platelets 173. Sodium 150. Potassium 4.2. Bicarb 47. BUN 59. Creatinine 0.67. Glucose 378. AST 50. ALT 58. Amiodarone at 0.5 mg/h. Her INR was 7.2. She did receive vitamin K. She is requiring norepinephrine at 0.03 mcg/kg/min. Propofol at 15 mcg/kg/min. Continued on DuoNeb inhalations, Symbicort, doxycycline. Chest x-ray shows evidence of COPD with superimposed pulmonary vascular congestion. Ongoing patchy left basilar and retrocardiac opacity. Objective - Vital Signs Vital signs: Vital Signs Temp 100.0 F H 09/02/24 08:00 Pulse 131 H 09/02/24 11:37 Resp 20 09/02/24 11:37 BP 102/83 09/02/24 08:00 Pulse Ox 96 09/02/24 08:00 FiO2 40 09/02/24 12:24 Intake & Output 09/01/24 09/02/24 09/02/24 18:59 06:59 18:59 Intake Total 330 860 469 Output Total 1285 520 375 Balance -955 340 94 Weight 85.1 kg Intake: IV 330 660 469 Dextrose 5% in Water 1, 600 449 000 ml @ 75 mls/hr IV . [id number] [facility] Rx#:[id number] Invasive Line 4 30 40 10 Invasive Line 5 20 10 Magnesium Sulfate-D5w Pmx 100 1 gm In Dextrose/Water 1 100ml.bag @ 100 mls/hr IVPB ONCE ONE Rx#: [id number] Potassium Chloride 10 meq 200 In Water For Injection 1 100ml.bag @ 100 mls/hr IVPB Q1H [facility] Rx#: [id number] Intake, IV Titration 200 Amount Dextrose 5% in Water 100 100 ml @ 618 mls/hr IV .Q10M ONE with Amiodarone 150 mg Rx#:[id number] Doxycycline 100 mg In 100 Sodium Chloride 0.9% 100 ml @ 100 mls/hr IVPB Q12HR [facility] Rx#:[id number] Output: Urine 1285 520 375 Other: Voiding Method Indwelling Catheter Indwelling Catheter Indwelling Catheter # Bowel Movements 0 - Exam GENERAL EXAM: Intubated, sedated 74-year-old female, on the mechanical ventilator. HEAD: Normocephalic. EYES: Normal reaction of pupils, equal size. NOSE: Clear with pink turbinates. THROAT: No erythema or exudates. NECK: No masses, no JVD. CHEST: No chest wall deformity. LUNGS: Equal air entry with few scattered rhonchi. CVS: S1 and S2 normal with no audible murmur, regular rhythm. ABDOMEN: No hepatosplenomegaly, normal bowel sounds, no guarding or rigidity. SPINE: No scoliosis or deformity SKIN: Areas of ecchymosis and bruising. CENTRAL NERVOUS SYSTEM: Sedated, tone is normal in all 4 extremities. EXTREMITIES: There is no peripheral edema. No clubbing, no cyanosis. Peripheral pulses are intact. - Labs CBC & Chem 7: 09/02/24 05:24 09/02/24 05:24 Labs: Abnormal Lab Results - Last 24 Hours (Table) 09/01/24 09/01/24 09/02/24 Range/Units 04:21 04:21 00:46 WBC (3.8-10.6) k/uL Hct (34.0-46.0) % MCV (80.0-100.0) fL MCHC (31.0-37.0) g/dL Neutrophils # (1.3-7.7) k/uL Lymphocytes # (1.0-4.8) k/uL Macrocytosis PT (10.0-12.5) sec INR (<1.2) ABG pH (7.35-7.45) ABG pCO2 (35-45) mmHg ABG pO2 (83-108) mmHg ABG HCO3 (21-25) mmol/L ABG Total CO2 (19-24) mmol/L ABG O2 Saturation (94-97) % Sodium (137-145) mmol/L Chloride (98-107) mmol/L Carbon Dioxide (22-30) mmol/L BUN (7-17) mg/dL Glucose (74-99) mg/dL POC Glucose (mg/dL) 201 H (70-110) mg/dL Total Bilirubin (0.2-1.3) mg/dL AST 70 H (14-36) U/L ALT 73 H (4-34) U/L Total Protein (6.3-8.2) g/dL Albumin (3.5-5.0) g/dL Procalcitonin 0.71 H (0.02-0.50) ng/mL 09/02/24 09/02/24 09/02/24 Range/Units 05:24 05:24 05:24 WBC 11.4 H (3.8-10.6) k/uL Hct 48.7 H (34.0-46.0) % MCV 112.4 H (80.0-100.0) fL MCHC 30.2 L (31.0-37.0) g/dL Neutrophils # 10.5 H (1.3-7.7) k/uL Lymphocytes # 0.1 L (1.0-4.8) k/uL Macrocytosis Marked A PT 72.2 H (10.0-12.5) sec INR 7.2 H* (<1.2) ABG pH (7.35-7.45) ABG pCO2 (35-45) mmHg ABG pO2 (83-108) mmHg ABG HCO3 (21-25) mmol/L ABG Total CO2 (19-24) mmol/L ABG O2 Saturation (94-97) % Sodium 150 H (137-145) mmol/L Chloride 95 L (98-107) mmol/L Carbon Dioxide 47 H* (22-30) mmol/L BUN 59 H (7-17) mg/dL Glucose 294 H (74-99) mg/dL POC Glucose (mg/dL) (70-110) mg/dL Total Bilirubin 1.7 H (0.2-1.3) mg/dL AST 50 H (14-36) U/L ALT 58 H (4-34) U/L Total Protein 6.0 L (6.3-8.2) g/dL Albumin 2.6 L (3.5-5.0) g/dL Procalcitonin (0.02-0.50) ng/mL 09/02/24 09/02/24 09/02/24 Range/Units 08:21 09:55 11:00 WBC (3.8-10.6) k/uL Hct (34.0-46.0) % MCV (80.0-100.0) fL MCHC (31.0-37.0) g/dL Neutrophils # (1.3-7.7) k/uL Lymphocytes # (1.0-4.8) k/uL Macrocytosis PT (10.0-12.5) sec INR (<1.2) ABG pH 7.34 L (7.35-7.45) ABG pCO2 97 H* 75 H* (35-45) mmHg ABG pO2 332 H (83-108) mmHg ABG HCO3 52 H* 50 H* (21-25) mmol/L ABG Total CO2 55 H 52 H (19-24) mmol/L ABG O2 Saturation >100.0 H (94-97) % Sodium (137-145) mmol/L Chloride (98-107) mmol/L Carbon Dioxide (22-30) mmol/L BUN (7-17) mg/dL Glucose (74-99) mg/dL POC Glucose (mg/dL) 351 H (70-110) mg/dL Total Bilirubin (0.2-1.3) mg/dL AST (14-36) U/L ALT (4-34) U/L Total Protein (6.3-8.2) g/dL Albumin (3.5-5.0) g/dL Procalcitonin (0.02-0.50) ng/mL 09/02/24 Range/Units 12:07 WBC (3.8-10.6) k/uL Hct (34.0-46.0) % MCV (80.0-100.0) fL MCHC (31.0-37.0) g/dL Neutrophils # (1.3-7.7) k/uL Lymphocytes # (1.0-4.8) k/uL Macrocytosis PT (10.0-12.5) sec INR (<1.2) ABG pH (7.35-7.45) ABG pCO2 (35-45) mmHg ABG pO2 (83-108) mmHg ABG HCO3 (21-25) mmol/L ABG Total CO2 (19-24) mmol/L ABG O2 Saturation (94-97) % Sodium (137-145) mmol/L Chloride (98-107) mmol/L Carbon Dioxide (22-30) mmol/L BUN (7-17) mg/dL Glucose (74-99) mg/dL POC Glucose (mg/dL) 378 H (70-110) mg/dL Total Bilirubin (0.2-1.3) mg/dL AST (14-36) U/L ALT (4-34) U/L Total Protein (6.3-8.2) g/dL Albumin (3.5-5.0) g/dL Procalcitonin (0.02-0.50) ng/mL Microbiology - Last 24 Hours (Table) 08/29/24 23:15 Blood Culture - Preliminary Blood Assessment and Plan Assessment: Acute on chronic hypoxic respiratory failure secondary to a COPD exacerbation, systolic CHF exacerbation, influenza A. The patient required intubation and mechanical ventilatory support on 09/02/2024 Acute influenza A Acute exacerbation of COPD Acute on chronic systolic congestive heart failure History of alcohol use Acute metabolic encephalopathy secondary to above Paroxysmal atrial fibrillation, anticoagulated with warfarin Transaminitis with coagulopathy, warfarin on hold Moderate mitral regurgitation Nonischemic cardiomyopathy Hypertension Dyslipidemia Hypothyroidism Plan: The patient was seen and evaluated Chest x-ray, ABGs, labs and medications reviewed The patient patient became quite obtunded while on BiPAP She ended up requiring intubation and mechanical ventilatory support She will be sedated on propofol Norepinephrine for hypotension Continued on amiodarone Continue on D5W at 75 mL/h Lasix discontinued Warfarin remains on hold for an INR of 7.2 Continue DuoNeb inhalations every 4 hours Continued on doxycycline Insulin drip for hyperglycemia Change Symbicort to Pulmicort and Perforomist inhalations Consult dietitian for nutritional support We will continue to follow and make further recommendations based on her clinical status I have personally seen and examined the patient, performed the documentation and the assessment and plan as written. Number of minutes spent on the visit: 30 Dictation was produced using [employer] dictation software. Please excuse any grammatical, word or spelling errors.
[2024-09-02 12:58] LABS: Glucose,Whole Blood 377 mg/dL (70-110)
[2024-09-02 14:04] LABS: Glucose,Whole Blood 296 mg/dL (70-110)
--- NOTE | 2024-09-02 14:27 | P.PN ---
Subjective Progress Note Date: 09/02/24 Patient is a 74-year-old female with past medical history significant for COPD, CHF, atrial fibrillation on Coumadin, and hypertension presents today for 1 week worsening of breathing as well as significant cough. She wears 2 L of oxygen at night but says that she has had to wear 2 L 24/7 for the past week. About 5 days ago she saw Dr. Lorenzo and he started her on spironolactone due to leg swelling and fluid retention. She states that the leg swelling has improved since. She has experienced COPD exacerbations like this before. Of note her granddaughter had the flu last week. Treated for management of acute on chronic hypoxic respiratory failure secondary to COPD exacerbation, influenza A, acute HFrEF exacerbation. Cardiology consulted. Started on IV Lasix, Coumadin continued, TTE ordered. Severe LV systolic dysfunction with EF 35%, severe pulmonary hypertension. Added Farxiga to her current medical regimen. Elevated LFTs, bilirubin, abdominal ultrasound was obtained and showed no acute finding, negative Underwood sign, adherent gallstone versus small polyp measuring 3 mm. Nonobstructing renal calculi on the right. 08/29 in the evening patient became progressively short of breath, started hallucinating. She was placed on BiPAP, given her history of alcohol drinking, she was started on CIWA with Ativan, transferred to ICU for close monitoring. Patient became obtunded and was intubated on 09/02. Subjective: Intubated. Currently AFib RVR with HR in the 140s. Rate of 20, tidal volume 250, FiO2 100% with PEEP of 5. Currently on Propofol at 20 mcg/kg/min. Also on Levophed at 0.03 mcg/kg/min. Amiodarone at 0.5 mg/min. CBC, Coag panel, CMP significant for WBC 11.4, Hct 48.7, MCV 112.4, PT 72.2, INR 7.2, Na 150, Cl 95, bicarb 47, BUN 59, glu 294, T. Bili 1.7, AST 50, ALT 58. ABG pH 7.43, pCO2 75. CXR consistent with CHF exacerbation slightly improved from previous day. Vitals Signs Reviewed. General examination - Intubated Heart - + S1S2 no murmurs Lungs -diminished sounds bilaterally Abdomen soft NT ND +ve BS Extremities - No edema [employer] - unable to determine Psych -unable to determine Assessment and Plan: Atrial fibrillation with RVR and Supratherapeutic INR Pharmacy to dose Coumadin Status post vitamin K At this morning 7.2. Pharmacy to adjust dose for goal of 2-3 Continue amiodarone drip. Continue Metoprolol 50 mg PO BID. Acute on chronic hypoxic respiratory failure multifactorial, secondary to acute influenza A, acute COPD exacerbation, acute on chronic HFrEF Severe pulmonary hypertension Acute COPD exacerbation Anxiety Acute on chronic systolic heart failure Severe pulmonary hypertension Moderate mitral regurgitation I have reviewed chest x-ray from this morning that shows interstitial edema similar to yesterdays CXR. Laisx, Aldactone, Losartan, Farxiga on hold. Continue with IV Solu-Medrol 60 mg every 8 hours and doxycycline 100 mg p.o. twice daily Continue with DuoNeb 4 times a day Continue Symbicort 162 puffs twice daily WBC this morning 11.4. CBC to monitor infection Cardiology on board. [employer] on board Acute toxic metabolic encephalopathy secondary to the above History of alcohol abuse Continue with Librium 25 mg p.o. 3 times daily and thiamine 1 mg p.o. daily Haldol 4 mg IV Q6H PRN agitation CIWA protocol with Ativan PRN Hypertension now hypotensive DVT prophylaxis: Patient on Coumadin Anticipated discharge pending Clinical course Anticipated discharge time: pending Clinical course Objective - Vital Signs Vital signs: Vital Signs Temp 99.7 F H 09/02/24 12:00 Pulse 134 H 09/02/24 13:00 Resp 20 09/02/24 13:00 BP 127/77 09/02/24 12:00 Pulse Ox 93 L 09/02/24 13:00 FiO2 40 09/02/24 13:00 Intake & Output 09/01/24 09/02/24 09/02/24 18:59 06:59 18:59 Intake Total 330 860 575.411 Output Total 1285 520 410 Balance -955 340 165.411 Weight 85.1 kg 85.1 kg Intake: IV 330 660 564 Dextrose 5% in Water 1, 600 524 000 ml @ 75 mls/hr IV . [id number] [facility] Rx#:[id number] Invasive Line 4 30 40 20 Invasive Line 5 20 20 Magnesium Sulfate-D5w Pmx 100 1 gm In Dextrose/Water 1 100ml.bag @ 100 mls/hr IVPB ONCE ONE Rx#: [id number] Potassium Chloride 10 meq 200 In Water For Injection 1 100ml.bag @ 100 mls/hr IVPB Q1H [facility] Rx#: [id number] Intake, IV Titration 200 11.411 Amount Dextrose 5% in Water 100 100 ml @ 618 mls/hr IV .Q10M ONE with Amiodarone 150 mg Rx#:[id number] Doxycycline 100 mg In 100 Sodium Chloride 0.9% 100 ml @ 100 mls/hr IVPB Q12HR [facility] Rx#:[id number] Insulin Regular 100 unit 10.645 In Sodium Chloride 0.9% 100 ml @ Titrate IV .Q0M [facility] Rx#:[id number] propofoL 1,000 mg In 0.766 Empty Bag 1 bag @ 15 MCG/ KG/MIN 7.659 mls/hr IV . Q13H4M [facility] Rx#:[id number] Output: Urine 1285 520 410 Other: Voiding Method Indwelling Catheter Indwelling Catheter Indwelling Catheter # Bowel Movements 0 ABP, PAP, CO, CI - Last Documented Arterial Blood Pressure 96/52 - Labs CBC & Chem 7: 09/02/24 05:24 09/02/24 05:24 Labs: Abnormal Lab Results - Last 24 Hours (Table) 09/01/24 09/02/24 09/02/24 Range/Units 04:21 00:46 05:24 WBC (3.8-10.6) k/uL Hct (34.0-46.0) % MCV (80.0-100.0) fL MCHC (31.0-37.0) g/dL Neutrophils # (1.3-7.7) k/uL Lymphocytes # (1.0-4.8) k/uL Macrocytosis PT 72.2 H (10.0-12.5) sec INR 7.2 H* (<1.2) ABG pH (7.35-7.45) ABG pCO2 (35-45) mmHg ABG pO2 (83-108) mmHg ABG HCO3 (21-25) mmol/L ABG Total CO2 (19-24) mmol/L ABG O2 Saturation (94-97) % Sodium (137-145) mmol/L Chloride (98-107) mmol/L Carbon Dioxide (22-30) mmol/L BUN (7-17) mg/dL Glucose (74-99) mg/dL POC Glucose (mg/dL) 201 H (70-110) mg/dL Total Bilirubin (0.2-1.3) mg/dL AST (14-36) U/L ALT (4-34) U/L Total Protein (6.3-8.2) g/dL Albumin (3.5-5.0) g/dL Procalcitonin 0.71 H (0.02-0.50) ng/mL 09/02/24 09/02/24 09/02/24 Range/Units 05:24 05:24 08:21 WBC 11.4 H (3.8-10.6) k/uL Hct 48.7 H (34.0-46.0) % MCV 112.4 H (80.0-100.0) fL MCHC 30.2 L (31.0-37.0) g/dL Neutrophils # 10.5 H (1.3-7.7) k/uL Lymphocytes # 0.1 L (1.0-4.8) k/uL Macrocytosis Marked A PT (10.0-12.5) sec INR (<1.2) ABG pH 7.34 L (7.35-7.45) ABG pCO2 97 H* (35-45) mmHg ABG pO2 (83-108) mmHg ABG HCO3 52 H* (21-25) mmol/L ABG Total CO2 55 H (19-24) mmol/L ABG O2 Saturation (94-97) % Sodium 150 H (137-145) mmol/L Chloride 95 L (98-107) mmol/L Carbon Dioxide 47 H* (22-30) mmol/L BUN 59 H (7-17) mg/dL Glucose 294 H (74-99) mg/dL POC Glucose (mg/dL) (70-110) mg/dL Total Bilirubin 1.7 H (0.2-1.3) mg/dL AST 50 H (14-36) U/L ALT 58 H (4-34) U/L Total Protein 6.0 L (6.3-8.2) g/dL Albumin 2.6 L (3.5-5.0) g/dL Procalcitonin (0.02-0.50) ng/mL 09/02/24 09/02/24 09/02/24 Range/Units 09:55 11:00 12:07 WBC (3.8-10.6) k/uL Hct (34.0-46.0) % MCV (80.0-100.0) fL MCHC (31.0-37.0) g/dL Neutrophils # (1.3-7.7) k/uL Lymphocytes # (1.0-4.8) k/uL Macrocytosis PT (10.0-12.5) sec INR (<1.2) ABG pH (7.35-7.45) ABG pCO2 75 H* (35-45) mmHg ABG pO2 332 H (83-108) mmHg ABG HCO3 50 H* (21-25) mmol/L ABG Total CO2 52 H (19-24) mmol/L ABG O2 Saturation >100.0 H (94-97) % Sodium (137-145) mmol/L Chloride (98-107) mmol/L Carbon Dioxide (22-30) mmol/L BUN (7-17) mg/dL Glucose (74-99) mg/dL POC Glucose (mg/dL) 351 H 378 H (70-110) mg/dL Total Bilirubin (0.2-1.3) mg/dL AST (14-36) U/L ALT (4-34) U/L Total Protein (6.3-8.2) g/dL Albumin (3.5-5.0) g/dL Procalcitonin (0.02-0.50) ng/mL 09/02/24 09/02/24 Range/Units 12:57 14:03 WBC (3.8-10.6) k/uL Hct (34.0-46.0) % MCV (80.0-100.0) fL MCHC (31.0-37.0) g/dL Neutrophils # (1.3-7.7) k/uL Lymphocytes # (1.0-4.8) k/uL Macrocytosis PT (10.0-12.5) sec INR (<1.2) ABG pH (7.35-7.45) ABG pCO2 (35-45) mmHg ABG pO2 (83-108) mmHg ABG HCO3 (21-25) mmol/L ABG Total CO2 (19-24) mmol/L ABG O2 Saturation (94-97) % Sodium (137-145) mmol/L Chloride (98-107) mmol/L Carbon Dioxide (22-30) mmol/L BUN (7-17) mg/dL Glucose (74-99) mg/dL POC Glucose (mg/dL) 377 H 296 H (70-110) mg/dL Total Bilirubin (0.2-1.3) mg/dL AST (14-36) U/L ALT (4-34) U/L Total Protein (6.3-8.2) g/dL Albumin (3.5-5.0) g/dL Procalcitonin (0.02-0.50) ng/mL Microbiology - Last 24 Hours (Table) 08/29/24 23:15 Blood Culture - Preliminary Blood
[2024-09-02 14:57] LABS: Glucose,Whole Blood 249 mg/dL (70-110)
[2024-09-02] MEDS: IPRATROPIUM-ALBUTEROL 3 ML NEB INHALATION SCH (15:07)
[2024-09-02 16:18] LABS: Glucose,Whole Blood 189 mg/dL (70-110)
[2024-09-02] MEDS: WARFARIN 0.5 MG TAB PO ONE (16:48)
[2024-09-02 16:54] LABS: Glucose,Whole Blood 162 mg/dL (70-110)
[2024-09-02 18:02] LABS: Glucose,Whole Blood 132 mg/dL (70-110)
[2024-09-02] MEDS: FORMOTEROL FUMARATE 20 MCG/2 ML NEBU INHALATION SCH (18:37)
[2024-09-02] MEDS: BUDESONIDE 1 MG/2 ML NEBU INHALATION SCH (18:37)
[2024-09-02 19:02] LABS: Glucose,Whole Blood 125 mg/dL (70-110)
[2024-09-02 20:14] LABS: Glucose,Whole Blood 142 mg/dL (70-110)
[2024-09-02 21:26] LABS: Glucose,Whole Blood 219 mg/dL (70-110)
[2024-09-02 21:59] LABS: Glucose,Whole Blood 219 mg/dL (70-110)
[2024-09-02 23:00] LABS: Glucose,Whole Blood 204 mg/dL (70-110)
[2024-09-03] MEDS: AMIODARONE 360 MG in DEXTROSE 5% IN WATER 200 ML IV ONE (00:22)
[2024-09-03 00:54] LABS: Glucose,Whole Blood 177 mg/dL (70-110)
[2024-09-03 01:56] LABS: Glucose,Whole Blood 171 mg/dL (70-110)
[2024-09-03 02:56] LABS: Glucose,Whole Blood 189 mg/dL (70-110)
[2024-09-03 03:55] LABS: Glucose,Whole Blood 185 mg/dL (70-110)
[2024-09-03 04:58] LABS: Glucose,Whole Blood 194 mg/dL (70-110)
[2024-09-03 05:12] LABS: ABG Base Excess 17.3 mmol/L; ABG Oxygen Saturation 96.4 % (94-97); ABG PH 7.38 (7.35-7.45); ABG PO2 83 mmHg (83-108); ABG TCO2 50 mmol/L (19-24)
[2024-09-03 05:16] LABS: ABG HCO3 47 mmol/L (21-25); ABG PCO2 80 mmHg (35-45); Allen Test Performed? no
[2024-09-03 05:24] LABS: African American GFR (CKD) 73 (>60 ml/min/1.73 sqM); Blood Urea Nitrogen 70 mg/dL (7-17); Calcium 8.6 mg/dL (8.4-10.2); Chloride 86 mmol/L (98-107); Glucose 213 mg/dL (74-99); Non-African American GFR(CKD) 63 (>60 ml/min/1.73 sqM); Potassium 3.8 mmol/L (3.5-5.1); Sodium 136 mmol/L (137-145)
[2024-09-03 05:27] LABS: INR 1.6 (<1.2)
[2024-09-03 05:30] LABS: Anion Gap 5 mmol/L
[2024-09-03 05:37] LABS: Carbon Dioxide 45 mmol/L (22-30)
[2024-09-03 05:51] LABS: Glucose,Whole Blood 206 mg/dL (70-110)
[2024-09-03 05:53] LABS: Basophils # (A) 0.2 k/uL (0-0.2); Basophils % (A) 1 %; Eosinophils # (A) 0.1 k/uL (0-0.7); Eosinophils % (A) 0 %; HCT 47.2 % (34.0-46.0); HGB 14.5 gm/dL (11.4-16.0); Hypochromasia Marked; Lymphocytes # (A) 0.3 k/uL (1.0-4.8); Lymphocytes % (A) 2 %; MCH 33.8 pg (25.0-35.0); MCHC 30.7 g/dL (31.0-37.0); Mean Platelet Volume 8.3; Monocytes # (A) 0.6 k/uL (0-1.0); Monocytes % (A) 3 %; Neutrophils # (A) 15.7 k/uL (1.3-7.7); Neutrophils % (A) 92 %; Platelet Count 222 k/uL (150-450); RBC 4.29 m/uL (3.80-5.40)
[2024-09-03] MEDS: POTASSIUM BICARBONATE/CIT AC 20 MEQ TABLET.EFF NG-TUBE SCH (05:55)
[2024-09-03 06:02] LABS: Macrocytosis Marked
[2024-09-03 06:49] LABS: Glucose,Whole Blood 181 mg/dL (70-110)
[2024-09-03 08:16] LABS: Glucose,Whole Blood 178 mg/dL (70-110)
--- NOTE | 2024-09-03 08:47 | XR ---
EXAMINATION TYPE: XR chest 1V portable DATE OF EXAM: 09/03/2024 4:34 AM COMPARISON: 09/02/2024 CLINICAL INDICATION: Female, 74 years old with history of Tube placement, , FINDINGS: ET tube satisfactory. NG tube courses below the diaphragm. Leftward patient rotation A normal cardiac mediastinal contours. There is a left subclavian CVC catheter with tip at the cavoatrial junction. H eart mildly enlarged. Hyperinflation with diffuse interstitial densities persisting. Underlying small left pleural effusion with dense retrocardiac opacity. IMPRESSION: Overall similar exam with diffuse interstitial changes on a background of COPD. Small left pleural ef fusion with extensive retrocardiac consolidation/atelectasis. [facility], , 09/03/2024 8:45 AM
[2024-09-03 09:05] LABS: Glucose,Whole Blood 150 mg/dL (70-110)
[2024-09-03] MEDS: LACTATED RINGERS 1,000 ML IV SCH (09:30)
[2024-09-03 09:59] LABS: Glucose,Whole Blood 145 mg/dL (70-110)
[2024-09-03 11:17] LABS: Glucose,Whole Blood 144 mg/dL (70-110)
[2024-09-03 12:01] LABS: Glucose,Whole Blood 137 mg/dL (70-110)
--- NOTE | 2024-09-03 12:14 | P.PN ---
Subjective Progress Note Date: 09/03/24 This is a 74-year-old female, familiar to my service, patient is known to have history of COPD, severe, history of chronic cor pulmonale, history of nonischemic cardiomyopathy and LV dysfunction as well as history of chronic atrial fibrillation maintained on Coumadin. Patient is also known to have history of moderate mitral regurgitation. Patient is normally on oxygen at 2 L/min, she is normally on diuretics, and she was very seen about a week ago in my office with worsening swelling of her lower extremities, and patient was placed on Aldactone in addition to her Lasix. Her leg swelling improved, however patient came into the ER on 08/28/2024, came in mostly with worsening shortness of breath, cough, wheezing, apparently when she was brought in by EMS she was found to be in tripod position and she was breathing quite heavy. Patient was placed on BiPAP, that seemed to improve her pulmonary status significantly on BiPAP. In the ER, patient was noted to have positive screening for acute influenza A. Last night I was notified about this patient about her shortness of breath and being BiPAP dependent, patient is known to have history of alcohol drinking, and there was also a concern about the patient going into alcohol withdrawal. Patient required some Ativan, admitted to the ICU for close monitoring. I was asked to see her in consultation. In addition to her COPD, patient had positive screening for influenza A. Today I saw the patient in the ICU, she is still on BiPAP 12/5/40%, patient is receiving Lasix, she is also on Aldactone, patient is on Tamiflu, and she is on her usual bronchodilators and on Solu-Medrol. WBC count is 11.9 hemoglobin 12.3 INR is 3.1 electrolytes are normal renal profile is normal troponin is less than 0.012 Evaluated today on 08/31/2024, patient remains in the ICU, patient is on 4 L nasal cannula, last night she was on BiPAP 12/5/40%, patient remains on bronchodilators, Lasix, Coumadin, and she is also on doxycycline. Baseline FEV1 from my office chart is 42% at best. Clearly the patient has severe underlying COPD. Patient is now on nasal cannula, had to be on BiPAP yesterday. Chest x- ray today is suggestive of interstitial edema, underlying pneumonia is felt to be less likely but not entirely ruled out. WBC count is 11.4 hemoglobin is 14.3 INR is 3.3 electrolytes are normal bicarb is 4 0 BUN is 27 creatinine 0.66 The patient is seen today September 01, 2024 in follow-up in the intensive care unit. She is currently sitting up in bed. She is quite restless. Moving from [id number]. She was on BiPAP 12/5 and 40% FiO2. She is currently on 4 L nasal cannula. Her O2 saturation did drop into the 70s when she had her oxygen off. She did require Ativan throughout the night. Recent arterial blood gases revealed a PH of 69, pCO2 79 and a pH of 7.38. She is continued on DuoNeb inhalations, Symbicort, Solu-Medrol. Empiric antibiotics in the form of doxycycline. She remains on IV diuretics. Remains on the CINY protocol. Anticoagulated with warfarin. White count 11.4. Hemoglobin 14.4. Platelets 169. INR 4.8. Sodium 150. Potassium 3.9. Bicarb 45. BUN 39. Creatinine 0.67. Chest x-ray reveals similar moderate interstitial opacities. The patient is seen today September 02, 2024 in follow-up in the intensive care unit. Throughout the night and early this morning she became more obtunded. She was maintained on BiPAP 12/5 and 50% FiO2. PaO2 of 90, pCO2 of 97 and a pH of 7.34. She subsequently had undergone intubation and mechanical ventilatory support. She is currently on assist-control mode at a rate of 20, tidal volume 350, FiO2 100% and a PEEP of 5. Follow-up blood gases revealed a PaO2 of 332, pCO2 75 and a pH of 7.43. The FiO2 was decreased to 40%. White count 11.4. Hemoglobin 14.7. Platelets 173. Sodium 150. Potassium 4.2. Bicarb 47. BUN 59. Creatinine 0.67. Glucose 378. AST 50. ALT 58. Amiodarone at 0.5 mg/h. Her INR was 7.2. She did receive vitamin K. She is requiring norepinephrine at 0.03 mcg/kg/min. Propofol at 15 mcg/kg/min. Continued on DuoNeb inhalations, Symbicort, doxycycline. Chest x-ray shows evidence of COPD with superimposed pulmonary vascular congestion. Ongoing patchy left basilar and retrocardiac opacity. The patient is seen today September 03, 2024 in follow-up in the intensive care unit. She remains intubated on mechanical ventilator. Currently on assist- control mode with a rate of 20, tidal volume 350, FiO2 40% and a PEEP of 5. Morning blood gases revealed a PaO2 of 83, pCO2 of 80 and a pH of 7.38. She is still having issues with atrial fibrillation with rapid ventricular response. She is on a amiodarone drip at 1 mg/min. Remains on norepinephrine at 3.4 mcg/min. D5W at 125 mL/h. Propofol at 20 mcg/kg/min. Insulin drip at 6 units/h. She is being nourished with vital HP at 30 mL/h with a goal of 38. Chest x-ray reveals diffuse interstitial changes on a background of COPD. Small left pleural effusion. Retrocardiac consolidation/atelectasis. Blood culture reveals no growth. Sputum culture reveals no growth to date. 14.5. Platelets 222. INR 1.6. Sodium 136. Potassium 3.8. Bicarb 45. BUN 70. Creatinine 0. 91. Glucose 213. She remains on DuoNeb and elations, Pulmicort and Perforomist inhalations, IV Solu-Medrol. Remains on warfarin. Remains on Protonix. Objective - Vital Signs Vital signs: Vital Signs Temp 99.5 F 09/03/24 04:00 Pulse 137 H 09/03/24 10:15 Resp 20 09/03/24 10:15 BP 91/66 09/03/24 10:15 Pulse Ox 96 09/03/24 10:15 FiO2 40 09/03/24 10:00 Intake & Output 09/02/24 09/03/24 09/03/24 18:59 06:59 18:59 Intake Total 2193.108 2398.356 673.216 Output Total 590 335 160 Balance 7090.067 5408.356 513.216 Weight 85.1 kg Intake: IV 2033 1535 520 Dextrose 5% in Water 1973 137 400 000 ml @ 125 mls/hr IV . Q8H [facility] Rx#:[id number] Doxycycline 100 mg In 100 100 Sodium Chloride 0.9% 100 ml @ 100 mls/hr IVPB Q12HR [facility] Rx#:[id number] Invasive Line 4 30 30 10 Invasive Line 5 30 30 10 Intake, IV Titration 129.108 633.356 133.216 Amount Amiodarone 360 mg In 173.332 Dextrose 5% in Water 200 ml @ 1 MG/MIN 33.333 mls/ hr IV .Q6H ONE Rx#: [id number] Amiodarone 450 mg In 293.061 Dextrose 5% in Water 250 ml @ 0.5 MG/MIN 16.667 mls/hr IV .Q15H [facility] Rx#: [id number] Insulin Regular 100 unit 47.837 32.299 In Sodium Chloride 0.9% 100 ml @ Titrate IV .Q0M [facility] Rx#:[id number] Norepinephrine 8 mg In 48.110 133.216 Sodium Chloride 0.9% 250 ml @ 0.03 MCG/KG/MIN 4.94 mls/hr IV .Q24H [facility] Rx#: [id number] propofoL 1,000 mg In 81.271 86.554 Empty Bag 1 bag @ 15 MCG/ KG/MIN 7.659 mls/hr IV . Q13H4M [facility] Rx#:[id number] Tube Feeding 30 170 20 Other 60 Output: Urine 590 335 160 Other: Voiding Method Indwelling Catheter Indwelling Catheter Indwelling Catheter # Bowel Movements 0 ABP, PAP, CO, CI - Last Documented Arterial Blood Pressure 102/61 - Exam GENERAL EXAM: Intubated, sedated 74-year-old female, on 40% FiO2 and a PEEP of 5 on the mechanical ventilator. HEAD: Normocephalic. EYES: Normal reaction of pupils, equal size. NOSE: Clear with pink turbinates. THROAT: No erythema or exudates. NECK: No masses, no JVD. CHEST: No chest wall deformity. LUNGS: Equal air entry with few scattered rhonchi. CVS: S1 and S2 normal with no audible murmur, regular rhythm. ABDOMEN: No hepatosplenomegaly, normal bowel sounds, no guarding or rigidity. SPINE: No scoliosis or deformity SKIN: Areas of ecchymosis and bruising. CENTRAL NERVOUS SYSTEM: Sedated, tone is normal in all 4 extremities. EXTREMITIES: There is no peripheral edema. No clubbing, no cyanosis. Peripheral pulses are intact. - Labs CBC & Chem 7: 09/03/24 05:45 09/03/24 04:55 Labs: Abnormal Lab Results - Last 24 Hours (Table) 09/02/24 09/02/24 09/02/24 Range/Units 05:24 12:07 12:57 WBC (3.8-10.6) k/uL Hct (34.0-46.0) % MCV (80.0-100.0) fL MCHC (31.0-37.0) g/dL Neutrophils # (1.3-7.7) k/uL Lymphocytes # (1.0-4.8) k/uL Macrocytosis PT (10.0-12.5) sec INR (<1.2) ABG pCO2 (35-45) mmHg ABG HCO3 (21-25) mmol/L ABG Total CO2 (19-24) mmol/L Sodium (137-145) mmol/L Chloride (98-107) mmol/L Carbon Dioxide (22-30) mmol/L BUN (7-17) mg/dL Glucose (74-99) mg/dL POC Glucose (mg/dL) 378 H 377 H (70-110) mg/dL Hemoglobin A1c 6.8 H (<=6.0) % 09/02/24 09/02/24 09/02/24 Range/Units 14:03 14:56 16:15 WBC (3.8-10.6) k/uL Hct (34.0-46.0) % MCV (80.0-100.0) fL MCHC (31.0-37.0) g/dL Neutrophils # (1.3-7.7) k/uL Lymphocytes # (1.0-4.8) k/uL Macrocytosis PT (10.0-12.5) sec INR (<1.2) ABG pCO2 (35-45) mmHg ABG HCO3 (21-25) mmol/L ABG Total CO2 (19-24) mmol/L Sodium (137-145) mmol/L Chloride (98-107) mmol/L Carbon Dioxide (22-30) mmol/L BUN (7-17) mg/dL Glucose (74-99) mg/dL POC Glucose (mg/dL) 296 H 249 H 189 H (70-110) mg/dL Hemoglobin A1c (<=6.0) % 09/02/24 09/02/24 09/02/24 Range/Units 16:52 18:00 19:00 WBC (3.8-10.6) k/uL Hct (34.0-46.0) % MCV (80.0-100.0) fL MCHC (31.0-37.0) g/dL Neutrophils # (1.3-7.7) k/uL Lymphocytes # (1.0-4.8) k/uL Macrocytosis PT (10.0-12.5) sec INR (<1.2) ABG pCO2 (35-45) mmHg ABG HCO3 (21-25) mmol/L ABG Total CO2 (19-24) mmol/L Sodium (137-145) mmol/L Chloride (98-107) mmol/L Carbon Dioxide (22-30) mmol/L BUN (7-17) mg/dL Glucose (74-99) mg/dL POC Glucose (mg/dL) 162 H 132 H 125 H (70-110) mg/dL Hemoglobin A1c (<=6.0) % 09/02/24 09/02/24 09/02/24 Range/Units 20:12 21:25 21:57 WBC (3.8-10.6) k/uL Hct (34.0-46.0) % MCV (80.0-100.0) fL MCHC (31.0-37.0) g/dL Neutrophils # (1.3-7.7) k/uL Lymphocytes # (1.0-4.8) k/uL Macrocytosis PT (10.0-12.5) sec INR (<1.2) ABG pCO2 (35-45) mmHg ABG HCO3 (21-25) mmol/L ABG Total CO2 (19-24) mmol/L Sodium (137-145) mmol/L Chloride (98-107) mmol/L Carbon Dioxide (22-30) mmol/L BUN (7-17) mg/dL Glucose (74-99) mg/dL POC Glucose (mg/dL) 142 H 219 H 219 H (70-110) mg/dL Hemoglobin A1c (<=6.0) % 09/02/24 09/03/24 09/03/24 Range/Units 22:59 00:52 01:53 WBC (3.8-10.6) k/uL Hct (34.0-46.0) % MCV (80.0-100.0) fL MCHC (31.0-37.0) g/dL Neutrophils # (1.3-7.7) k/uL Lymphocytes # (1.0-4.8) k/uL Macrocytosis PT (10.0-12.5) sec INR (<1.2) ABG pCO2 (35-45) mmHg ABG HCO3 (21-25) mmol/L ABG Total CO2 (19-24) mmol/L Sodium (137-145) mmol/L Chloride (98-107) mmol/L Carbon Dioxide (22-30) mmol/L BUN (7-17) mg/dL Glucose (74-99) mg/dL POC Glucose (mg/dL) 204 H 177 H 171 H (70-110) mg/dL Hemoglobin A1c (<=6.0) % 09/03/24 09/03/24 09/03/24 Range/Units 02:54 03:53 04:55 WBC (3.8-10.6) k/uL Hct (34.0-46.0) % MCV (80.0-100.0) fL MCHC (31.0-37.0) g/dL Neutrophils # (1.3-7.7) k/uL Lymphocytes # (1.0-4.8) k/uL Macrocytosis PT 17.0 H (10.0-12.5) sec INR 1.6 H (<1.2) ABG pCO2 (35-45) mmHg ABG HCO3 (21-25) mmol/L ABG Total CO2 (19-24) mmol/L Sodium (137-145) mmol/L Chloride (98-107) mmol/L Carbon Dioxide (22-30) mmol/L BUN (7-17) mg/dL Glucose (74-99) mg/dL POC Glucose (mg/dL) 189 H 185 H (70-110) mg/dL Hemoglobin A1c (<=6.0) % 09/03/24 09/03/24 09/03/24 Range/Units 04:55 04:56 05:06 WBC (3.8-10.6) k/uL Hct (34.0-46.0) % MCV (80.0-100.0) fL MCHC (31.0-37.0) g/dL Neutrophils # (1.3-7.7) k/uL Lymphocytes # (1.0-4.8) k/uL Macrocytosis PT (10.0-12.5) sec INR (<1.2) ABG pCO2 80 H* (35-45) mmHg ABG HCO3 47 H* (21-25) mmol/L ABG Total CO2 50 H (19-24) mmol/L Sodium 136 L (137-145) mmol/L Chloride 86 L (98-107) mmol/L Carbon Dioxide 45 H* (22-30) mmol/L BUN 70 H (7-17) mg/dL Glucose 213 H (74-99) mg/dL POC Glucose (mg/dL) 194 H (70-110) mg/dL Hemoglobin A1c (<=6.0) % 09/03/24 09/03/24 09/03/24 Range/Units 05:45 05:49 06:47 WBC 17.0 H (3.8-10.6) k/uL Hct 47.2 H (34.0-46.0) % MCV 110.0 H (80.0-100.0) fL MCHC 30.7 L (31.0-37.0) g/dL Neutrophils # 15.7 H (1.3-7.7) k/uL Lymphocytes # 0.3 L (1.0-4.8) k/uL Macrocytosis Marked A PT (10.0-12.5) sec INR (<1.2) ABG pCO2 (35-45) mmHg ABG HCO3 (21-25) mmol/L ABG Total CO2 (19-24) mmol/L Sodium (137-145) mmol/L Chloride (98-107) mmol/L Carbon Dioxide (22-30) mmol/L BUN (7-17) mg/dL Glucose (74-99) mg/dL POC Glucose (mg/dL) 206 H 181 H (70-110) mg/dL Hemoglobin A1c (<=6.0) % 09/03/24 09/03/24 09/03/24 Range/Units 08:13 09:03 09:58 WBC (3.8-10.6) k/uL Hct (34.0-46.0) % MCV (80.0-100.0) fL MCHC (31.0-37.0) g/dL Neutrophils # (1.3-7.7) k/uL Lymphocytes # (1.0-4.8) k/uL Macrocytosis PT (10.0-12.5) sec INR (<1.2) ABG pCO2 (35-45) mmHg ABG HCO3 (21-25) mmol/L ABG Total CO2 (19-24) mmol/L Sodium (137-145) mmol/L Chloride (98-107) mmol/L Carbon Dioxide (22-30) mmol/L BUN (7-17) mg/dL Glucose (74-99) mg/dL POC Glucose (mg/dL) 178 H 150 H 145 H (70-110) mg/dL Hemoglobin A1c (<=6.0) % 09/03/24 Range/Units 11:16 WBC (3.8-10.6) k/uL Hct (34.0-46.0) % MCV (80.0-100.0) fL MCHC (31.0-37.0) g/dL Neutrophils # (1.3-7.7) k/uL Lymphocytes # (1.0-4.8) k/uL Macrocytosis PT (10.0-12.5) sec INR (<1.2) ABG pCO2 (35-45) mmHg ABG HCO3 (21-25) mmol/L ABG Total CO2 (19-24) mmol/L Sodium (137-145) mmol/L Chloride (98-107) mmol/L Carbon Dioxide (22-30) mmol/L BUN (7-17) mg/dL Glucose (74-99) mg/dL POC Glucose (mg/dL) 144 H (70-110) mg/dL Hemoglobin A1c (<=6.0) % Microbiology - Last 24 Hours (Table) 09/02/24 11:36 Gram Stain - Preliminary Sputum Sputum Culture - Preliminary Assessment and Plan Assessment: Acute on chronic hypoxic respiratory failure secondary to a COPD exacerbation, systolic CHF exacerbation, influenza A. The patient required intubation and mechanical ventilatory support on 09/02/2024 Acute influenza A Acute exacerbation of COPD Acute on chronic systolic congestive heart failure History of alcohol use Acute metabolic encephalopathy secondary to above Paroxysmal atrial fibrillation, anticoagulated with warfarin Transaminitis with coagulopathy, warfarin on hold Moderate mitral regurgitation Nonischemic cardiomyopathy Hypertension Dyslipidemia Hypothyroidism Plan: The patient was seen and evaluated Chest x-ray, ABGs, labs and medications reviewed Discontinue D5W infusion Changed to lactated Ringer's at 75 mL/h Continue bronchodilators, steroids Continued on doxycycline Remains on amiodarone drip Remains on warfarin Norepinephrine for blood pressure support Propofol for sedation Vital HP for nutritional support We will continue to follow and make further recommendations based on her clinical status I have personally seen and examined the patient, performed the documentation and the assessment and plan as written. Number of minutes spent on the visit: 30 Dictation was produced using [employer] dictation software. Please excuse any grammatical, word or spelling errors.
[2024-09-03 13:01] LABS: Glucose,Whole Blood 163 mg/dL (70-110)
[2024-09-03] MEDS: HEPARIN SOD,PORK IN 0.45% NACL 25,000 UNIT in 0.45% NACL 1 250ML.BAG IV SCH (13:42)
[2024-09-03 13:56] LABS: Glucose,Whole Blood 175 mg/dL (70-110)
[2024-09-03] MEDS: SODIUM CHLORIDE 0.9% 500 ML 500 ML IV ONE (14:16)
--- NOTE | 2024-09-03 14:33 | P.PN ---
Subjective Progress Note Date: 09/03/24 Was seen and evaluated this morning but apparently she was transferred to the intensive care unit overnight because of change in mental status and deterioration of the respiratory status but currently she is on BiPAP. She underwent an echo which revealed cardiomyopathy with EF appeared to be in the range of 30% with evidence of severe pulmonary hypertension and she is on maximized medical treatment for cardiomyopathy except that she is not on SGLT2 inhibitors and with that and going to add Farxiga to the current medical regimen. Also follow-up with the second set of troponin. She continues to be on Lasix IV. Kidney function remains stable. August 31, 2024 The patient was seen and evaluated this morning. She is overall doing better. She was on BiPAP and now she is on nasal cannula which she has been diuresing very well with the kidney function remains stable. She is on oral anticoagula tion with Coumadin. From a cardiovascular standpoint of view, we will continue the current medical regimen including the current dose of Lasix IV and continue monitor the kidney function and electrolytes and follow-up with the patient. The physical examination is remarkable for bilateral rhonchi and bilateral lower extremities edema 09/01/2024 Patient is seen and examined at bedside this a.m. She is on BiPAP support. Patient was getting agitated for which she received some Dilaudid and currently patient is somnolent. 09/02/2024 Patient is seen and examined at bedside this a.m. Patient was obtunded and not tolerating BiPAP with increased work of breathing. For this she was intubated this morning. Labs shows hemoglobin 14.7, MCV is elevated at 112, INR is elevated at 7.2 ABG shows respiratory alkalosis with hypercapnia BUN 59, creatinine 0.6 09/03/2024 Patient seen and examined at bedside this a.m. On 09/02/2024 she was intubated because of being obtunded and because of increased work of breathing. Since intubation and with propofol, patient had stayed hypotensive. For this she has required norepinephrine. Currently she is on 0.03 mcg infusion. With the use of norepinephrine she has persisted in A-fib RVR with minimal response to beta-sudha and amiodarone. On exam Irregularly irregular pulses, S1-S2 audible, no significant murmurs appreciated Intubated, ET tube in place, on ventilator support, mild crackles or rhonchi audible No significant swelling noticed in bilateral lower extremity Under sedation, detailed neuroexam was not performed ASSESSMENT: # Atrial fibrillation with RVR since 09/01/2024, 11 PM # Mixed shock with complaints of distributive and cardiogenic etiology # Ventilator-dependent respiratory failure due to Acute influenza A # Acute on chronic heart failure with reduced EF # Nonischemic cardiomyopathy with a EF of 35% # Severe pulmonary hypertension # History of paroxysmal atrial fibrillation, on Coumadin outpatient # Supratherapeutic INR, present on admission. Now resolved. # History of nonischemic cardiomyopathy # Hypertension # Hyperlipidemia # Moderate mitral regurgitation PLAN: Due to hemodynamic compromise and continues requirement for norepinephrine, will attempt cardioversion for temporary relief from A-fib RVR. Placed pacer pads. Discontinue warfarin, start IV heparin. Once PTT is therapeutic, do synchronized cardioversion at 200 J. Continue IV amiodarone drip. Once cardioverted, start metoprolol 50 mg twice daily, and wean down norepinephrine. Hold Farxiga. Hold diuretics for now. Objective - Vital Signs Vital signs: Vital Signs Temp 99.5 F 09/03/24 12:00 Pulse 129 H 09/03/24 13:00 Resp 20 09/03/24 13:00 BP 97/70 09/03/24 13:00 Pulse Ox 96 09/03/24 13:00 FiO2 40 09/03/24 13:00 Intake & Output 09/02/24 09/03/24 09/03/24 18:59 06:59 18:59 Intake Total 2193.108 2398.356 1298.351 Output Total 590 335 300 Balance 3403.114 3060.356 998.351 Weight 85.1 kg Intake: IV 2033 1535 840 Dextrose 5% in Water 1973 137 400 000 ml @ 125 mls/hr IV . Q8H [facility] Rx#:[id number] Doxycycline 100 mg In 100 100 Sodium Chloride 0.9% 100 ml @ 100 mls/hr IVPB Q12HR [facility] Rx#:[id number] Invasive Line 4 30 30 20 Invasive Line 5 30 30 20 Lactated Ringers 1,000 ml 300 @ 75 mls/hr IV .[id number] [facility] Rx#:[id number] Intake, IV Titration 129.108 633.356 168.351 Amount Amiodarone 360 mg In 173.332 Dextrose 5% in Water 200 ml @ 1 MG/MIN 33.333 mls/ hr IV .Q6H ONE Rx#: [id number] Amiodarone 450 mg In 293.061 0 Dextrose 5% in Water 250 ml @ 0.5 MG/MIN 16.667 mls/hr IV .Q15H [facility] Rx#: [id number] Insulin Regular 100 unit 47.837 32.299 33.9 In Sodium Chloride 0.9% 100 ml @ Titrate IV .Q0M [facility] Rx#:[id number] Norepinephrine 8 mg In 48.110 134.451 Sodium Chloride 0.9% 250 ml @ 0.03 MCG/KG/MIN 4.94 mls/hr IV .Q24H [facility] Rx#: [id number] propofoL 1,000 mg In 81.271 86.554 Empty Bag 1 bag @ 15 MCG/ KG/MIN 7.659 mls/hr IV . Q13H4M [facility] Rx#:[id number] Tube Feeding 30 170 230 Other 60 60 Output: Urine 590 335 300 Other: Voiding Method Indwelling Catheter Indwelling Catheter Indwelling Catheter # Bowel Movements 0 ABP, PAP, CO, CI - Last Documented Arterial Blood Pressure 112/55 - Labs CBC & Chem 7: 09/03/24 05:45 09/03/24 04:55 Labs: Abnormal Lab Results - Last 24 Hours (Table) 09/02/24 09/02/24 09/02/24 Range/Units 05:24 14:56 16:15 WBC (3.8-10.6) k/uL Hct (34.0-46.0) % MCV (80.0-100.0) fL MCHC (31.0-37.0) g/dL Neutrophils # (1.3-7.7) k/uL Lymphocytes # (1.0-4.8) k/uL Macrocytosis PT (10.0-12.5) sec INR (<1.2) ABG pCO2 (35-45) mmHg ABG HCO3 (21-25) mmol/L ABG Total CO2 (19-24) mmol/L Sodium (137-145) mmol/L Chloride (98-107) mmol/L Carbon Dioxide (22-30) mmol/L BUN (7-17) mg/dL Glucose (74-99) mg/dL POC Glucose (mg/dL) 249 H 189 H (70-110) mg/dL Hemoglobin A1c 6.8 H (<=6.0) % 09/02/24 09/02/24 09/02/24 Range/Units 16:52 18:00 19:00 WBC (3.8-10.6) k/uL Hct (34.0-46.0) % MCV (80.0-100.0) fL MCHC (31.0-37.0) g/dL Neutrophils # (1.3-7.7) k/uL Lymphocytes # (1.0-4.8) k/uL Macrocytosis PT (10.0-12.5) sec INR (<1.2) ABG pCO2 (35-45) mmHg ABG HCO3 (21-25) mmol/L ABG Total CO2 (19-24) mmol/L Sodium (137-145) mmol/L Chloride (98-107) mmol/L Carbon Dioxide (22-30) mmol/L BUN (7-17) mg/dL Glucose (74-99) mg/dL POC Glucose (mg/dL) 162 H 132 H 125 H (70-110) mg/dL Hemoglobin A1c (<=6.0) % 09/02/24 09/02/24 09/02/24 Range/Units 20:12 21:25 21:57 WBC (3.8-10.6) k/uL Hct (34.0-46.0) % MCV (80.0-100.0) fL MCHC (31.0-37.0) g/dL Neutrophils # (1.3-7.7) k/uL Lymphocytes # (1.0-4.8) k/uL Macrocytosis PT (10.0-12.5) sec INR (<1.2) ABG pCO2 (35-45) mmHg ABG HCO3 (21-25) mmol/L ABG Total CO2 (19-24) mmol/L Sodium (137-145) mmol/L Chloride (98-107) mmol/L Carbon Dioxide (22-30) mmol/L BUN (7-17) mg/dL Glucose (74-99) mg/dL POC Glucose (mg/dL) 142 H 219 H 219 H (70-110) mg/dL Hemoglobin A1c (<=6.0) % 09/02/24 09/03/24 09/03/24 Range/Units 22:59 00:52 01:53 WBC (3.8-10.6) k/uL Hct (34.0-46.0) % MCV (80.0-100.0) fL MCHC (31.0-37.0) g/dL Neutrophils # (1.3-7.7) k/uL Lymphocytes # (1.0-4.8) k/uL Macrocytosis PT (10.0-12.5) sec INR (<1.2) ABG pCO2 (35-45) mmHg ABG HCO3 (21-25) mmol/L ABG Total CO2 (19-24) mmol/L Sodium (137-145) mmol/L Chloride (98-107) mmol/L Carbon Dioxide (22-30) mmol/L BUN (7-17) mg/dL Glucose (74-99) mg/dL POC Glucose (mg/dL) 204 H 177 H 171 H (70-110) mg/dL Hemoglobin A1c (<=6.0) % 09/03/24 09/03/24 09/03/24 Range/Units 02:54 03:53 04:55 WBC (3.8-10.6) k/uL Hct (34.0-46.0) % MCV (80.0-100.0) fL MCHC (31.0-37.0) g/dL Neutrophils # (1.3-7.7) k/uL Lymphocytes # (1.0-4.8) k/uL Macrocytosis PT 17.0 H (10.0-12.5) sec INR 1.6 H (<1.2) ABG pCO2 (35-45) mmHg ABG HCO3 (21-25) mmol/L ABG Total CO2 (19-24) mmol/L Sodium (137-145) mmol/L Chloride (98-107) mmol/L Carbon Dioxide (22-30) mmol/L BUN (7-17) mg/dL Glucose (74-99) mg/dL POC Glucose (mg/dL) 189 H 185 H (70-110) mg/dL Hemoglobin A1c (<=6.0) % 09/03/24 09/03/24 09/03/24 Range/Units 04:55 04:56 05:06 WBC (3.8-10.6) k/uL Hct (34.0-46.0) % MCV (80.0-100.0) fL MCHC (31.0-37.0) g/dL Neutrophils # (1.3-7.7) k/uL Lymphocytes # (1.0-4.8) k/uL Macrocytosis PT (10.0-12.5) sec INR (<1.2) ABG pCO2 80 H* (35-45) mmHg ABG HCO3 47 H* (21-25) mmol/L ABG Total CO2 50 H (19-24) mmol/L Sodium 136 L (137-145) mmol/L Chloride 86 L (98-107) mmol/L Carbon Dioxide 45 H* (22-30) mmol/L BUN 70 H (7-17) mg/dL Glucose 213 H (74-99) mg/dL POC Glucose (mg/dL) 194 H (70-110) mg/dL Hemoglobin A1c (<=6.0) % 09/03/24 09/03/24 09/03/24 Range/Units 05:45 05:49 06:47 WBC 17.0 H (3.8-10.6) k/uL Hct 47.2 H (34.0-46.0) % MCV 110.0 H (80.0-100.0) fL MCHC 30.7 L (31.0-37.0) g/dL Neutrophils # 15.7 H (1.3-7.7) k/uL Lymphocytes # 0.3 L (1.0-4.8) k/uL Macrocytosis Marked A PT (10.0-12.5) sec INR (<1.2) ABG pCO2 (35-45) mmHg ABG HCO3 (21-25) mmol/L ABG Total CO2 (19-24) mmol/L Sodium (137-145) mmol/L Chloride (98-107) mmol/L Carbon Dioxide (22-30) mmol/L BUN (7-17) mg/dL Glucose (74-99) mg/dL POC Glucose (mg/dL) 206 H 181 H (70-110) mg/dL Hemoglobin A1c (<=6.0) % 09/03/24 09/03/24 09/03/24 Range/Units 08:13 09:03 09:58 WBC (3.8-10.6) k/uL Hct (34.0-46.0) % MCV (80.0-100.0) fL MCHC (31.0-37.0) g/dL Neutrophils # (1.3-7.7) k/uL Lymphocytes # (1.0-4.8) k/uL Macrocytosis PT (10.0-12.5) sec INR (<1.2) ABG pCO2 (35-45) mmHg ABG HCO3 (21-25) mmol/L ABG Total CO2 (19-24) mmol/L Sodium (137-145) mmol/L Chloride (98-107) mmol/L Carbon Dioxide (22-30) mmol/L BUN (7-17) mg/dL Glucose (74-99) mg/dL POC Glucose (mg/dL) 178 H 150 H 145 H (70-110) mg/dL Hemoglobin A1c (<=6.0) % 09/03/24 09/03/24 09/03/24 Range/Units 11:16 11:58 13:00 WBC (3.8-10.6) k/uL Hct (34.0-46.0) % MCV (80.0-100.0) fL MCHC (31.0-37.0) g/dL Neutrophils # (1.3-7.7) k/uL Lymphocytes # (1.0-4.8) k/uL Macrocytosis PT (10.0-12.5) sec INR (<1.2) ABG pCO2 (35-45) mmHg ABG HCO3 (21-25) mmol/L ABG Total CO2 (19-24) mmol/L Sodium (137-145) mmol/L Chloride (98-107) mmol/L Carbon Dioxide (22-30) mmol/L BUN (7-17) mg/dL Glucose (74-99) mg/dL POC Glucose (mg/dL) 144 H 137 H 163 H (70-110) mg/dL Hemoglobin A1c (<=6.0) % 09/03/24 Range/Units 13:54 WBC (3.8-10.6) k/uL Hct (34.0-46.0) % MCV (80.0-100.0) fL MCHC (31.0-37.0) g/dL Neutrophils # (1.3-7.7) k/uL Lymphocytes # (1.0-4.8) k/uL Macrocytosis PT (10.0-12.5) sec INR (<1.2) ABG pCO2 (35-45) mmHg ABG HCO3 (21-25) mmol/L ABG Total CO2 (19-24) mmol/L Sodium (137-145) mmol/L Chloride (98-107) mmol/L Carbon Dioxide (22-30) mmol/L BUN (7-17) mg/dL Glucose (74-99) mg/dL POC Glucose (mg/dL) 175 H (70-110) mg/dL Hemoglobin A1c (<=6.0) % Microbiology - Last 24 Hours (Table) 09/02/24 11:36 Gram Stain - Preliminary Sputum Sputum Culture - Preliminary
[2024-09-03 15:31] LABS: Glucose,Whole Blood 198 mg/dL (70-110)
[2024-09-03 16:04] LABS: Glucose,Whole Blood 235 mg/dL (70-110)
[2024-09-03] MEDS: INSULIN ASPART (NovoLOG) 100 UNIT/ML VIAL SQ SCH ×2 (16:06→18:16)
--- NOTE | 2024-09-03 16:36 | P.PN ---
Subjective Progress Note Date: 09/03/24 Patient is a 74-year-old female with past medical history significant for COPD, CHF, atrial fibrillation on Coumadin, and hypertension presents today for 1 week worsening of breathing as well as significant cough. She wears 2 L of oxygen at night but says that she has had to wear 2 L 24/7 for the past week. About 5 days ago she saw Dr. Lorenzo and he started her on spironolactone due to leg swelling and fluid retention. She states that the leg swelling has improved since. She has experienced COPD exacerbations like this before. Of note her granddaughter had the flu last week. Treated for management of acute on chronic hypoxic respiratory failure secondary to COPD exacerbation, influenza A, acute HFrEF exacerbation. Cardiology consulted. Started on IV Lasix, Coumadin continued, TTE ordered. Severe LV systolic dysfunction with EF 35%, severe pulmonary hypertension. Added Farxiga to her current medical regimen. Elevated LFTs, bilirubin, abdominal ultrasound was obtained and showed no acute finding, negative Underwood sign, adherent gallstone versus small polyp measuring 3 mm. Nonobstructing renal calculi on the right. 08/29 in the evening patient became progressively short of breath, started hallucinating. She was placed on BiPAP, given her history of alcohol drinking, she was started on CIWA with Ativan, transferred to ICU for close monitoring. Patient became obtunded and was intubated on 09/02. Subjective: Intubated. Currently AFib RVR with HR in the 120s. Rate of 20, tidal volume 350, FiO2 40% with PEEP of 5. Currently on Propofol at 20 mcg/kg/min. Also on Levophed at 0.01 mcg/kg/min. Amiodarone at 0.5 mg/min. Cardiology plans of heparin infusion and cardioversion when APTT therapeutic. CBC, Coag panel, BMP significant for WBC 17, Hct 47.2, MCV 110, PT 17, INR 1.6, Na 136, Cl 86, bicarb 45, BUN 70, glu 213. ABG pH 7.38, pCO2 80. CXR consistent with CHF exacerbation similar to previous day. Vitals Signs Reviewed. General examination - Intubated Heart - + S1S2 no murmurs Lungs -diminished sounds bilaterally Abdomen soft NT ND +ve BS Extremities - No edema POLICY CHECKER - unable to determine Psych -unable to determine Assessment and Plan: Atrial fibrillation with RVR and Supratherapeutic INR Coumadin discontinued and started on Heparin infusion with plans for cardioversion when APTT therapeutic. Continue amiodarone drip. Continue Metoprolol 50 mg PO BID. Acute on chronic hypoxic respiratory failure multifactorial, secondary to acute influenza A, acute COPD exacerbation, acute on chronic HFrEF Severe pulmonary hypertension Acute COPD exacerbation Anxiety Acute on chronic systolic heart failure Severe pulmonary hypertension Moderate mitral regurgitation I have reviewed chest x-ray from this morning that shows interstitial edema similar to yesterdays CXR. Laisx, Aldactone, Losartan, Farxiga on hold. Continue with IV Solu-Medrol 60 mg every 8 hours and doxycycline 100 mg p.o. t wice daily Continue with DuoNeb 4 times a day Continue Symbicort 162 puffs twice daily WBC this morning 17. CBC to monitor infection Cardiology on board. Market Development Executive on board Acute toxic metabolic encephalopathy secondary to the above History of alcohol abuse Haldol 4 mg IV Q6H PRN agitation CIWA protocol with Ativan PRN Hypertension now hypotensive DVT prophylaxis: Heparin drip Anticipated discharge pending Clinical course Anticipated discharge time: pending Clinical course Objective - Vital Signs Vital signs: Vital Signs Temp 99.5 F 09/03/24 12:00 Pulse 129 H 09/03/24 13:00 Resp 20 09/03/24 13:00 BP 97/70 09/03/24 13:00 Pulse Ox 96 09/03/24 13:00 FiO2 40 09/03/24 16:11 Intake & Output 09/02/24 09/03/24 09/03/24 18:59 06:59 18:59 Intake Total 2193.108 2398.356 1403.351 Output Total 590 335 360 Balance 2814.537 5801.356 1043.351 Weight 85.1 kg Intake: IV 2033 1535 915 Dextrose 5% in Water 1973 137 400 000 ml @ 125 mls/hr IV . Q8H [facility] Rx#:[id number] Doxycycline 100 mg In 100 100 Sodium Chloride 0.9% 100 ml @ 100 mls/hr IVPB Q12HR [facility] Rx#:[id number] Invasive Line 4 30 30 20 Invasive Line 5 30 30 20 Lactated Ringers 1,000 ml 375 @ 75 mls/hr IV .[id number] [facility] Rx#:[id number] Intake, IV Titration 129.108 633.356 168.351 Amount Amiodarone 360 mg In 173.332 Dextrose 5% in Water 200 ml @ 1 MG/MIN 33.333 mls/ hr IV .Q6H ONE Rx#: [id number] Amiodarone 450 mg In 293.061 0 Dextrose 5% in Water 250 ml @ 0.5 MG/MIN 16.667 mls/hr IV .Q15H [facility] Rx#: [id number] Insulin Regular 100 unit 47.837 32.299 33.9 In Sodium Chloride 0.9% 100 ml @ Titrate IV .Q0M [facility] Rx#:[id number] Norepinephrine 8 mg In 48.110 134.451 Sodium Chloride 0.9% 250 ml @ 0.03 MCG/KG/MIN 4.94 mls/hr IV .Q24H [facility] Rx#: [id number] propofoL 1,000 mg In 81.271 86.554 Empty Bag 1 bag @ 15 MCG/ KG/MIN 7.659 mls/hr IV . Q13H4M [facility] Rx#:[id number] Tube Feeding 30 170 260 Other 60 60 Output: Urine 590 335 360 Other: Voiding Method Indwelling Catheter Indwelling Catheter Indwelling Catheter # Bowel Movements 0 ABP, PAP, CO, CI - Last Documented Arterial Blood Pressure 112/55 - Labs CBC & Chem 7: 09/03/24 05:45 09/03/24 04:55 Labs: Abnormal Lab Results - Last 24 Hours (Table) 09/02/24 09/02/24 09/02/24 Range/Units 16:52 18:00 19:00 WBC (3.8-10.6) k/uL Hct (34.0-46.0) % MCV (80.0-100.0) fL MCHC (31.0-37.0) g/dL Neutrophils # (1.3-7.7) k/uL Lymphocytes # (1.0-4.8) k/uL Macrocytosis PT (10.0-12.5) sec INR (<1.2) ABG pCO2 (35-45) mmHg ABG HCO3 (21-25) mmol/L ABG Total CO2 (19-24) mmol/L Sodium (137-145) mmol/L Chloride (98-107) mmol/L Carbon Dioxide (22-30) mmol/L BUN (7-17) mg/dL Glucose (74-99) mg/dL POC Glucose (mg/dL) 162 H 132 H 125 H (70-110) mg/dL 09/02/24 09/02/24 09/02/24 Range/Units 20:12 21:25 21:57 WBC (3.8-10.6) k/uL Hct (34.0-46.0) % MCV (80.0-100.0) fL MCHC (31.0-37.0) g/dL Neutrophils # (1.3-7.7) k/uL Lymphocytes # (1.0-4.8) k/uL Macrocytosis PT (10.0-12.5) sec INR (<1.2) ABG pCO2 (35-45) mmHg ABG HCO3 (21-25) mmol/L ABG Total CO2 (19-24) mmol/L Sodium (137-145) mmol/L Chloride (98-107) mmol/L Carbon Dioxide (22-30) mmol/L BUN (7-17) mg/dL Glucose (74-99) mg/dL POC Glucose (mg/dL) 142 H 219 H 219 H (70-110) mg/dL 09/02/24 09/03/24 09/03/24 Range/Units 22:59 00:52 01:53 WBC (3.8-10.6) k/uL Hct (34.0-46.0) % MCV (80.0-100.0) fL MCHC (31.0-37.0) g/dL Neutrophils # (1.3-7.7) k/uL Lymphocytes # (1.0-4.8) k/uL Macrocytosis PT (10.0-12.5) sec INR (<1.2) ABG pCO2 (35-45) mmHg ABG HCO3 (21-25) mmol/L ABG Total CO2 (19-24) mmol/L Sodium (137-145) mmol/L Chloride (98-107) mmol/L Carbon Dioxide (22-30) mmol/L BUN (7-17) mg/dL Glucose (74-99) mg/dL POC Glucose (mg/dL) 204 H 177 H 171 H (70-110) mg/dL 09/03/24 09/03/24 09/03/24 Range/Units 02:54 03:53 04:55 WBC (3.8-10.6) k/uL Hct (34.0-46.0) % MCV (80.0-100.0) fL MCHC (31.0-37.0) g/dL Neutrophils # (1.3-7.7) k/uL Lymphocytes # (1.0-4.8) k/uL Macrocytosis PT 17.0 H (10.0-12.5) sec INR 1.6 H (<1.2) ABG pCO2 (35-45) mmHg ABG HCO3 (21-25) mmol/L ABG Total CO2 (19-24) mmol/L Sodium (137-145) mmol/L Chloride (98-107) mmol/L Carbon Dioxide (22-30) mmol/L BUN (7-17) mg/dL Glucose (74-99) mg/dL POC Glucose (mg/dL) 189 H 185 H (70-110) mg/dL 09/03/24 09/03/24 09/03/24 Range/Units 04:55 04:56 05:06 WBC (3.8-10.6) k/uL Hct (34.0-46.0) % MCV (80.0-100.0) fL MCHC (31.0-37.0) g/dL Neutrophils # (1.3-7.7) k/uL Lymphocytes # (1.0-4.8) k/uL Macrocytosis PT (10.0-12.5) sec INR (<1.2) ABG pCO2 80 H* (35-45) mmHg ABG HCO3 47 H* (21-25) mmol/L ABG Total CO2 50 H (19-24) mmol/L Sodium 136 L (137-145) mmol/L Chloride 86 L (98-107) mmol/L Carbon Dioxide 45 H* (22-30) mmol/L BUN 70 H (7-17) mg/dL Glucose 213 H (74-99) mg/dL POC Glucose (mg/dL) 194 H (70-110) mg/dL 09/03/24 09/03/24 09/03/24 Range/Units 05:45 05:49 06:47 WBC 17.0 H (3.8-10.6) k/uL Hct 47.2 H (34.0-46.0) % MCV 110.0 H (80.0-100.0) fL MCHC 30.7 L (31.0-37.0) g/dL Neutrophils # 15.7 H (1.3-7.7) k/uL Lymphocytes # 0.3 L (1.0-4.8) k/uL Macrocytosis Marked A PT (10.0-12.5) sec INR (<1.2) ABG pCO2 (35-45) mmHg ABG HCO3 (21-25) mmol/L ABG Total CO2 (19-24) mmol/L Sodium (137-145) mmol/L Chloride (98-107) mmol/L Carbon Dioxide (22-30) mmol/L BUN (7-17) mg/dL Glucose (74-99) mg/dL POC Glucose (mg/dL) 206 H 181 H (70-110) mg/dL 09/03/24 09/03/24 09/03/24 Range/Units 08:13 09:03 09:58 WBC (3.8-10.6) k/uL Hct (34.0-46.0) % MCV (80.0-100.0) fL MCHC (31.0-37.0) g/dL Neutrophils # (1.3-7.7) k/uL Lymphocytes # (1.0-4.8) k/uL Macrocytosis PT (10.0-12.5) sec INR (<1.2) ABG pCO2 (35-45) mmHg ABG HCO3 (21-25) mmol/L ABG Total CO2 (19-24) mmol/L Sodium (137-145) mmol/L Chloride (98-107) mmol/L Carbon Dioxide (22-30) mmol/L BUN (7-17) mg/dL Glucose (74-99) mg/dL POC Glucose (mg/dL) 178 H 150 H 145 H (70-110) mg/dL 09/03/24 09/03/24 09/03/24 Range/Units 11:16 11:58 13:00 WBC (3.8-10.6) k/uL Hct (34.0-46.0) % MCV (80.0-100.0) fL MCHC (31.0-37.0) g/dL Neutrophils # (1.3-7.7) k/uL Lymphocytes # (1.0-4.8) k/uL Macrocytosis PT (10.0-12.5) sec INR (<1.2) ABG pCO2 (35-45) mmHg ABG HCO3 (21-25) mmol/L ABG Total CO2 (19-24) mmol/L Sodium (137-145) mmol/L Chloride (98-107) mmol/L Carbon Dioxide (22-30) mmol/L BUN (7-17) mg/dL Glucose (74-99) mg/dL POC Glucose (mg/dL) 144 H 137 H 163 H (70-110) mg/dL 09/03/24 09/03/24 09/03/24 Range/Units 13:54 15:29 16:02 WBC (3.8-10.6) k/uL Hct (34.0-46.0) % MCV (80.0-100.0) fL MCHC (31.0-37.0) g/dL Neutrophils # (1.3-7.7) k/uL Lymphocytes # (1.0-4.8) k/uL Macrocytosis PT (10.0-12.5) sec INR (<1.2) ABG pCO2 (35-45) mmHg ABG HCO3 (21-25) mmol/L ABG Total CO2 (19-24) mmol/L Sodium (137-145) mmol/L Chloride (98-107) mmol/L Carbon Dioxide (22-30) mmol/L BUN (7-17) mg/dL Glucose (74-99) mg/dL POC Glucose (mg/dL) 175 H 198 H 235 H (70-110) mg/dL Microbiology - Last 24 Hours (Table) 09/02/24 11:36 Gram Stain - Preliminary Sputum Sputum Culture - Preliminary
[2024-09-03 17:53] LABS: Glucose,Whole Blood 222 mg/dL (70-110)
[2024-09-03] MEDS ORDERED: WARFARIN 2.5 MG TAB PO ONE (18:00)
[2024-09-03 19:49] LABS: Glucose,Whole Blood 203 mg/dL (70-110)
[2024-09-03] MEDS: methylPREDNISolone SOD SUCCI 40 MG/ML 1 ML VIAL IV SCH (19:56)
[2024-09-03] MEDS: INSULIN DETEMIR (LEVEMIR) 100 UNIT/ML SYR SQ SCH (20:34)
[2024-09-03] MEDS: HEPARIN SODIUM 1,000 UN/ML (10ML VL) IV PRN (21:02)
[2024-09-04 00:15] LABS: Glucose,Whole Blood 150 mg/dL (70-110)
[2024-09-04 04:54] LABS: ABG Base Excess 14.7 mmol/L; ABG PH 7.36 (7.35-7.45); ABG PO2 76 mmHg (83-108); ABG TCO2 46 mmol/L (19-24)
[2024-09-04 05:08] LABS: ABG PCO2 77 mmHg (35-45)
[2024-09-04 05:09] LABS: ABG HCO3 44 mmol/L (21-25); Allen Test Performed? no
[2024-09-04 06:06] LABS: INR 1.3 (<1.2); Prothrombin Time 13.7 sec (10.0-12.5)
[2024-09-04 06:30] LABS: Glucose,Whole Blood 166 mg/dL (70-110)
[2024-09-04 06:53] LABS: Basophils # (A) 0.1 k/uL (0-0.2); Basophils % (A) 1 %; Eosinophils % (A) 0 %; HCT 44.9 % (34.0-46.0); HGB 13.9 gm/dL (11.4-16.0); Hypochromasia Slight; Lymphocytes # (A) 0.2 k/uL (1.0-4.8); Lymphocytes % (A) 2 %; MCH 33.5 pg (25.0-35.0); MCHC 30.9 g/dL (31.0-37.0); MCV 108.6 fL (80.0-100.0); Macrocytosis Marked; Mean Platelet Volume 8.6; Monocytes # (A) 0.9 k/uL (0-1.0); Monocytes % (A) 6 %; Neutrophils # (A) 12.5 k/uL (1.3-7.7); Neutrophils % (A) 90 %; Platelet Count 157 k/uL (150-450); RBC 4.13 m/uL (3.80-5.40); RDW 14.4 % (11.5-15.5); WBC 13.8 k/uL (3.8-10.6)
[2024-09-04 07:09] LABS: African American GFR (CKD) 70 (>60 ml/min/1.73 sqM); Blood Urea Nitrogen 89 mg/dL (7-17); Calcium 8.5 mg/dL (8.4-10.2); Chloride 89 mmol/L (98-107); Glucose 178 mg/dL (74-99); Non-African American GFR(CKD) 60 (>60 ml/min/1.73 sqM); Sodium 132 mmol/L (137-145)
[2024-09-04 07:17] LABS: Anion Gap 8 mmol/L; Carbon Dioxide 35 mmol/L (22-30); Potassium 4.9 mmol/L (3.5-5.1)
--- NOTE | 2024-09-04 07:58 | XR ---
EXAMINATION TYPE: XR chest 1V portable DATE OF EXAM: 09/04/2024 5:17 AM COMPARISON: Chest radiographs from CLINICAL INDICATION: Female, 74 years old with history of Tube placement; [facility] TECHNIQUE: XR chest 1V portable Frontal view of the chest. FINDINGS: Lungs/Pleura: There is no evidence of pleural effusion, focal consolidation, or pneumothorax. Pulmonary vascularity: Unremarkable. Heart/mediastinum: Cardiomediastinal silhouette is unremarkable. Musculoskeletal: No acute osseous pathology. Other findings: None Lines/Tubes: Endotracheal tube with distal tip 5.5 cm above the charles. Nasogastric tube with its distal tip and side-port projecting under the diaphragm. Left central venous catheter with distal tip at the cavoatrial junction. IMPRESSION: 1. Stable support line and tubes. 2. Cardiomegaly with small left pleural effusion. Correlate with serum BNP. [facility], , 09/04/2024 7:55 AM
[2024-09-04] MEDS: METOPROLOL TARTRATE 50 MG TAB PO SCH (11:29)
--- NOTE | 2024-09-04 11:52 | P.PN ---
Subjective Progress Note Date: 09/04/24 This is a 74-year-old female, familiar to my service, patient is known to have history of COPD, severe, history of chronic cor pulmonale, history of nonischemic cardiomyopathy and LV dysfunction as well as history of chronic atrial fibrillation maintained on Coumadin. Patient is also known to have history of moderate mitral regurgitation. Patient is normally on oxygen at 2 L/min, she is normally on diuretics, and she was very seen about a week ago in my office with worsening swelling of her lower extremities, and patient was placed on Aldactone in addition to her Lasix. Her leg swelling improved, however patient came into the ER on 08/28/2024, came in mostly with worsening shortness of breath, cough, wheezing, apparently when she was brought in by EMS she was found to be in tripod position and she was breathing quite heavy. Patient was placed on BiPAP, that seemed to improve her pulmonary status significantly on BiPAP. In the ER, patient was noted to have positive screening for acute influenza A. Last night I was notified about this patient about her shortness of breath and being BiPAP dependent, patient is known to have history of alcohol drinking, and there was also a concern about the patient going into alcohol withdrawal. Patient required some Ativan, admitted to the ICU for close monitoring. I was asked to see her in consultation. In addition to her COPD, patient had positive screening for influenza A. Today I saw the patient in the ICU, she is still on BiPAP 12/5/40%, patient is receiving Lasix, she is also on Aldactone, patient is on Tamiflu, and she is on her usual bronchodilators and on Solu-Medrol. WBC count is 11.9 hemoglobin 12.3 INR is 3.1 electrolytes are normal renal profile is normal troponin is less than 0.012 Evaluated today on 08/31/2024, patient remains in the ICU, patient is on 4 L nasal cannula, last night she was on BiPAP 12/5/40%, patient remains on bronchodilators, Lasix, Coumadin, and she is also on doxycycline. Baseline FEV1 from my office chart is 42% at best. Clearly the patient has severe underlying COPD. Patient is now on nasal cannula, had to be on BiPAP yesterday. Chest x- ray today is suggestive of interstitial edema, underlying pneumonia is felt to be less likely but not entirely ruled out. WBC count is 11.4 hemoglobin is 14.3 INR is 3.3 electrolytes are normal bicarb is 4 0 BUN is 27 creatinine 0.66 The patient is seen today September 01, 2024 in follow-up in the intensive care unit. She is currently sitting up in bed. She is quite restless. Moving from [id number]-[id number]. She was on BiPAP 12/5 and 40% FiO2. She is currently on 4 L nasal cannula. Her O2 saturation did drop into the 70s when she had her oxygen off. She did require Ativan throughout the night. Recent arterial blood gases revealed a PH of 69, pCO2 79 and a pH of 7.38. She is continued on DuoNeb inhalations, Symbicort, Solu-Medrol. Empiric antibiotics in the form of doxycycline. She remains on IV diuretics. Remains on the CIID protocol. Anticoagulated with warfarin. White count 11.4. Hemoglobin 14.4. Platelets 169. INR 4.8. Sodium 150. Potassium 3.9. Bicarb 45. BUN 39. Creatinine 0.67. Chest x-ray reveals similar moderate interstitial opacities. The patient is seen today September 02, 2024 in follow-up in the intensive care unit. Throughout the night and early this morning she became more obtunded. She was maintained on BiPAP 12/5 and 50% FiO2. PaO2 of 90, pCO2 of 97 and a pH of 7.34. She subsequently had undergone intubation and mechanical ventilatory support. She is currently on assist-control mode at a rate of 20, tidal volume 350, FiO2 100% and a PEEP of 5. Follow-up blood gases revealed a PaO2 of 332, pCO2 75 and a pH of 7.43. The FiO2 was decreased to 40%. White count 11.4. Hemoglobin 14.7. Platelets 173. Sodium 150. Potassium 4.2. Bicarb 47. BUN 59. Creatinine 0.67. Glucose 378. AST 50. ALT 58. Amiodarone at 0.5 mg/h. Her INR was 7.2. She did receive vitamin K. She is requiring norepinephrine at 0.03 mcg/kg/min. Propofol at 15 mcg/kg/min. Continued on DuoNeb inhalations, Symbicort, doxycycline. Chest x-ray shows evidence of COPD with superimposed pulmonary vascular congestion. Ongoing patchy left basilar and retrocardiac opacity. The patient is seen today September 03, 2024 in follow-up in the intensive care unit. She remains intubated on mechanical ventilator. Currently on assist- control mode with a rate of 20, tidal volume 350, FiO2 40% and a PEEP of 5. Morning blood gases revealed a PaO2 of 83, pCO2 of 80 and a pH of 7.38. She is still having issues with atrial fibrillation with rapid ventricular response. She is on a amiodarone drip at 1 mg/min. Remains on norepinephrine at 3.4 mcg/min. D5W at 125 mL/h. Propofol at 20 mcg/kg/min. Insulin drip at 6 units/h. She is being nourished with vital HP at 30 mL/h with a goal of 38. Chest x-ray reveals diffuse interstitial changes on a background of COPD. Small left pleural effusion. Retrocardiac consolidation/atelectasis. Blood culture reveals no growth. Sputum culture reveals no growth to date. 14.5. Platelets 222. INR 1.6. Sodium 136. Potassium 3.8. Bicarb 45. BUN 70. Creatinine 0. 91. Glucose 213. She remains on DuoNeb and elations, Pulmicort and Perforomist inhalations, IV Solu-Medrol. Remains on warfarin. Remains on Protonix. The patient is seen today September 04, 2024 in follow-up in the intensive care unit. She remains intubated on the mechanical ventilator. Currently on assist- control mode with a rate of 20, tidal volume 350, FiO2 40% and a PEEP of 5. Morning blood gases revealed a PaO2 of 76, pCO2 77 and a pH of 7.36. She remains in atrial fibrillation with a rapid ventricular response and an undergone cardioversion this a.m. with 200 J and is currently back in sinus rhythm. She remains on amiodarone drip at 0.5 mg/min. Heparin drip per weight- based protocol. Sedated with propofol at 30 mcg/kg/min. Norepinephrine at 1 mcg/min. Lactated Ringer's at 75 mL/h. She is being nourished with vital HP at 38 mL/h which is goal. She is continued on DuoNeb and elations, Pulmicort and Perforomist inhalations, IV Solu-Medrol. Protonix for GI prophylaxis. Remains on doxycycline. Sputum culture now revealing Streptococcus pneumoniae. White count 13.8. Hemoglobin 13.9. Platelets 157. INR 1.3. Sodium 132. Potassium 4.9. Bicarb 35. BUN 89. Creatinine 0.95. Glucose 178. Objective - Vital Signs Vital signs: Vital Signs Temp 98.2 F 09/04/24 10:00 Pulse 93 09/04/24 11:30 Resp 20 09/04/24 11:30 BP 132/56 09/04/24 11:30 Pulse Ox 93 L 09/04/24 11:30 FiO2 40 09/04/24 10:00 Intake & Output 09/03/24 09/04/24 09/04/24 18:59 06:59 18:59 Intake Total 2533.477 2058.488 794.094 Output Total 620 410 315 Balance 0325.282 8827.488 479.094 Weight 85.1 kg Intake: IV 1743 1041 405 0.9 3cc/ hr a-line 9 33 15 0.9 3cc/hr cvp 9 33 15 Dextrose 5% in Water 1, 400 000 ml @ 125 mls/hr IV . Q8H [facility] Rx#:[id number] Doxycycline 100 mg In 100 100 Sodium Chloride 0.9% 100 ml @ 100 mls/hr IVPB Q12HR [facility] Rx#:[id number] Invasive Line 4 20 30 Invasive Line 5 30 20 Lactated Ringers 1,000 ml 675 825 375 @ 75 mls/hr IV .[id number] [facility] Rx#:[id number] Sodium Chloride 0.9% 500 500 ml 500 ml @ 999 mls/hr IV .Q31M [facility] Rx#:[id number] Intake, IV Titration 296.477 509.488 169.094 Amount Amiodarone 450 mg In 0 218.338 Dextrose 5% in Water 250 ml @ 0.5 MG/MIN 16.667 mls/hr IV .Q15H [facility] Rx#: [id number] Heparin Sod,Pork in 0.45% 73.167 169.094 NaCl 25,000 unit In 0.45 % NaCl 1 250ml.bag @ 11. 751 UNITS/KG/HR 10 mls/hr IV .Q24H [facility] Rx#: [id number] Insulin Regular 100 unit 33.9 In Sodium Chloride 0.9% 100 ml @ Titrate IV .Q0M [facility] Rx#:[id number] Norepinephrine 8 mg In 134.451 47.563 0 Sodium Chloride 0.9% 250 ml @ 0.03 MCG/KG/MIN 4.94 mls/hr IV .Q24H [facility] Rx#: [id number] propofoL 1,000 mg In 128.126 170.420 Empty Bag 1 bag @ 15 MCG/ KG/MIN 7.659 mls/hr IV . Q13H4M [facility] Rx#:[id number] Tube Feeding 404 418 190 Other 90 90 30 Output: Urine 620 410 315 Other: Voiding Method Indwelling Catheter Indwelling Catheter ABP, PAP, CO, CI - Last Documented Arterial Blood Pressure 122/41 - Exam GENERAL EXAM: Intubated, sedated 74-year-old female, resting in bed, on 40% FiO2 and a PEEP of 5 on the ventilator. HEAD: Normocephalic. EYES: Normal reaction of pupils, equal size. NOSE: Clear with pink turbinates. THROAT: Oral endotracheal and gastric tube secured in place. No erythema or exudates. NECK: No masses, no JVD. CHEST: No chest wall deformity. Left subclavian triple-lumen catheter in place. LUNGS: Equal air entry with few scattered rhonchi. CVS: S1 and S2 normal with no audible murmur, regular rhythm. ABDOMEN: No hepatosplenomegaly, normal bowel sounds, no guarding or rigidity. SPINE: No scoliosis or deformity SKIN: Areas of ecchymosis and bruising. CENTRAL NERVOUS SYSTEM: Sedated, tone is normal in all 4 extremities. EXTREMITIES: Right radial arterial line in place. There is no peripheral edema. Peripheral pulses are intact. - Labs CBC & Chem 7: 09/04/24 06:14 09/04/24 06:14 Labs: Abnormal Lab Results - Last 24 Hours (Table) 09/03/24 09/03/24 09/03/24 Range/Units 11:58 13:00 13:54 WBC (3.8-10.6) k/uL MCV (80.0-100.0) fL MCHC (31.0-37.0) g/dL Neutrophils # (1.3-7.7) k/uL Lymphocytes # (1.0-4.8) k/uL Macrocytosis PT (10.0-12.5) sec INR (<1.2) APTT (22.0-30.0) sec ABG pCO2 (35-45) mmHg ABG pO2 (83-108) mmHg ABG HCO3 (21-25) mmol/L ABG Total CO2 (19-24) mmol/L Sodium (137-145) mmol/L Chloride (98-107) mmol/L Carbon Dioxide (22-30) mmol/L BUN (7-17) mg/dL Glucose (74-99) mg/dL POC Glucose (mg/dL) 137 H 163 H 175 H (70-110) mg/dL 09/03/24 09/03/24 09/03/24 Range/Units 15:29 16:02 17:52 WBC (3.8-10.6) k/uL MCV (80.0-100.0) fL MCHC (31.0-37.0) g/dL Neutrophils # (1.3-7.7) k/uL Lymphocytes # (1.0-4.8) k/uL Macrocytosis PT (10.0-12.5) sec INR (<1.2) APTT (22.0-30.0) sec ABG pCO2 (35-45) mmHg ABG pO2 (83-108) mmHg ABG HCO3 (21-25) mmol/L ABG Total CO2 (19-24) mmol/L Sodium (137-145) mmol/L Chloride (98-107) mmol/L Carbon Dioxide (22-30) mmol/L BUN (7-17) mg/dL Glucose (74-99) mg/dL POC Glucose (mg/dL) 198 H 235 H 222 H (70-110) mg/dL 09/03/24 09/03/24 09/04/24 Range/Units 19:48 20:00 00:14 WBC (3.8-10.6) k/uL MCV (80.0-100.0) fL MCHC (31.0-37.0) g/dL Neutrophils # (1.3-7.7) k/uL Lymphocytes # (1.0-4.8) k/uL Macrocytosis PT (10.0-12.5) sec INR (<1.2) APTT 32.5 H (22.0-30.0) sec ABG pCO2 (35-45) mmHg ABG pO2 (83-108) mmHg ABG HCO3 (21-25) mmol/L ABG Total CO2 (19-24) mmol/L Sodium (137-145) mmol/L Chloride (98-107) mmol/L Carbon Dioxide (22-30) mmol/L BUN (7-17) mg/dL Glucose (74-99) mg/dL POC Glucose (mg/dL) 203 H 150 H (70-110) mg/dL 09/04/24 09/04/24 09/04/24 Range/Units 02:15 04:47 05:15 WBC (3.8-10.6) k/uL MCV (80.0-100.0) fL MCHC (31.0-37.0) g/dL Neutrophils # (1.3-7.7) k/uL Lymphocytes # (1.0-4.8) k/uL Macrocytosis PT 13.7 H (10.0-12.5) sec INR 1.3 H (<1.2) APTT 45.4 H (22.0-30.0) sec ABG pCO2 77 H* (35-45) mmHg ABG pO2 76 L (83-108) mmHg ABG HCO3 44 H* (21-25) mmol/L ABG Total CO2 46 H (19-24) mmol/L Sodium (137-145) mmol/L Chloride (98-107) mmol/L Carbon Dioxide (22-30) mmol/L BUN (7-17) mg/dL Glucose (74-99) mg/dL POC Glucose (mg/dL) (70-110) mg/dL 09/04/24 09/04/24 09/04/24 Range/Units 06:14 06:14 06:28 WBC 13.8 H (3.8-10.6) k/uL MCV 108.6 H (80.0-100.0) fL MCHC 30.9 L (31.0-37.0) g/dL Neutrophils # 12.5 H (1.3-7.7) k/uL Lymphocytes # 0.2 L (1.0-4.8) k/uL Macrocytosis Marked A PT (10.0-12.5) sec INR (<1.2) APTT (22.0-30.0) sec ABG pCO2 (35-45) mmHg ABG pO2 (83-108) mmHg ABG HCO3 (21-25) mmol/L ABG Total CO2 (19-24) mmol/L Sodium 132 L (137-145) mmol/L Chloride 89 L (98-107) mmol/L Carbon Dioxide 35 H (22-30) mmol/L BUN 89 H (7-17) mg/dL Glucose 178 H (74-99) mg/dL POC Glucose (mg/dL) 166 H (70-110) mg/dL Microbiology - Last 24 Hours (Table) 09/02/24 11:36 Gram Stain - Preliminary Sputum Sputum Culture - Preliminary Streptococcus pneumoniae 08/29/24 23:15 Blood Culture - Final Blood Assessment and Plan Assessment: Acute on chronic hypoxic respiratory failure secondary to a COPD exacerbation, systolic CHF exacerbation, influenza A. The patient required intubation and mechanical ventilatory support on 09/02/2024 Acute influenza A Acute exacerbation of COPD Acute on chronic systolic congestive heart failure Atrial fibrillation with rapid ventricular response, cardioverted today with 200 J, currently in sinus rhythm, remains on a heparin drip. Amiodarone drip. History of alcohol use Acute metabolic encephalopathy secondary to above Transaminitis with coagulopathy, warfarin on hold Moderate mitral regurgitation Nonischemic cardiomyopathy Hypertension Dyslipidemia Hypothyroidism Plan: The patient was seen and evaluated Chest x-ray, ABGs, labs and medications reviewed Sputum culture showing strep pneumoniae Discontinue doxycycline, add Rocephin Status post cardioversion today, currently in sinus rhythm Continue heparin drip Continue amiodarone drip Titrate the norepinephrine as tolerated Propofol for sedation Being nourished with vital HP Continue lactated Ringer's at 75 mL/h Continue bronchodilators, steroids We will continue to follow I have personally seen and examined the patient, performed the documentation and the assessment and plan as written. Number of minutes spent on the visit: 20 Dictation was produced using [employer] dictation software. Please excuse any grammatical, word or spelling errors.
[2024-09-04 12:04] LABS: Glucose,Whole Blood 184 mg/dL (70-110)
--- NOTE | 2024-09-04 16:41 | P.PN ---
Subjective Progress Note Date: 09/04/24 Patient is a 74-year-old female with past medical history significant for COPD, CHF, atrial fibrillation on Coumadin, and hypertension presents today for 1 week worsening of breathing as well as significant cough. She wears 2 L of oxygen at night but says that she has had to wear 2 L 24/7 for the past week. About 5 days ago she saw Dr. Lorenzo and he started her on spironolactone due to leg swelling and fluid retention. She states that the leg swelling has improved since. She has experienced COPD exacerbations like this before. Of note her granddaughter had the flu last week. Treated for management of acute on chronic hypoxic respiratory failure secondary to COPD exacerbation, influenza A, acute HFrEF exacerbation. Cardiology consulted. Started on IV Lasix, Coumadin continued, TTE ordered. Severe LV systolic dysfunction with EF 35%, severe pulmonary hypertension. Added Farxiga to her current medical regimen. Elevated LFTs, bilirubin, abdominal ultrasound was obtained and showed no acute finding, negative Underwood sign, adherent gallstone versus small polyp measuring 3 mm. Nonobstructing renal calculi on the right. 08/29 in the evening patient became progressively short of breath, started hallucinating. She was placed on BiPAP, given her history of alcohol drinking, she was started on CIWA with Ativan, transferred to ICU for close monitoring. Patient became obtunded and was intubated on 09/02. Went into A-Fib with RVR, successfully cardioverted on 09/03. Subjective: Intubated. Currently AFib RVR with HR in the 120s. Rate of 20, tidal volume 350, FiO2 40% with PEEP of 5. Currently on Propofol at 30 mcg/kg/min. Also on Levophed at 0.02 mcg/kg/min. Amiodarone at 0.5 mg/min. Anticoagulation include heparin drip at 13.751 units/kg/hr. Underwent cardioversion successfully. CBC, Coag panel, BMP significant for WBC 13.8, MCV 108.6, PT 13.7, INR 1.3, Na 132, Cl 89, bicarb 35, BUN 89, glu 178. ABG pH 7.36, pCO2 77. CXR consistent with CHF exacerbation similar to previous day. Vitals Signs Reviewed. 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 Continue amiodarone drip at 0.5 mg/min. Continue Metoprolol 50 mg PO BID. Continue heparin drip while monitoring APTT. Acute on chronic hypoxic respiratory failure multifactorial, secondary to acute influenza A, acute COPD exacerbation, acute on chronic HFrEF Severe pulmonary hypertension Acute COPD exacerbation Anxiety Acute on chronic systolic heart failure Severe pulmonary hypertension Moderate mitral regurgitation I have reviewed chest x-ray from this morning that shows interstitial edema similar to yesterdays CXR. Laisx, Aldactone, Losartan, Farxiga on hold. Continue with IV Solu-Medrol 60 mg every 8 hours. Doxycycline switched to Rocephin 2g IV QD today. Continue with DuoNeb Q4H scheduled and Q2N PRN. Continue Pulmicort 1 mg INH BID and Performist 20 mcg INH BID. WBC this morning 13.8. CBC to monitor infection Cardiology on board. [employer] Application Developer on board Acute toxic metabolic encephalopathy secondary to the above History of alcohol abuse Haldol 4 mg IV Q6H PRN agitation CIWA protocol with Ativan PRN Hypertension now hypotensive requiring Levophed at 0.02 mcg/kg/min DVT prophylaxis: Heparin drip Anticipated discharge pending Clinical course Anticipated discharge time: pending Clinical course Objective - Vital Signs Vital signs: Vital Signs Temp 98.3 F 09/04/24 12:00 Pulse 76 09/04/24 15:30 Resp 20 09/04/24 15:30 BP 115/60 09/04/24 15:15 Pulse Ox 96 09/04/24 15:30 FiO2 40 09/04/24 12:44 Intake & Output 09/03/24 09/04/24 09/04/24 18:59 06:59 18:59 Intake Total 2533.477 2058.488 1415.094 Output Total 620 410 540 Balance 2955.021 1805.488 875.094 Weight 85.1 kg Intake: IV 1743 1041 798 0.9 3cc/ hr a-line 9 33 24 0.9 3cc/hr cvp 9 33 24 Dextrose 5% in Water 1, 400 000 ml @ 125 mls/hr IV . Q8H [facility] Rx#:[id number] Doxycycline 100 mg In 100 100 100 Sodium Chloride 0.9% 100 ml @ 100 mls/hr IVPB Q12HR [facility] Rx#:[id number] Invasive Line 4 20 30 Invasive Line 5 30 20 Lactated Ringers 1,000 ml 675 825 600 @ 75 mls/hr IV .[id number] [facility] Rx#:[id number] Sodium Chloride 0.9% 500 500 ml 500 ml @ 999 mls/hr IV .Q31M [facility] Rx#:[id number] cefTRIAXone 2 gm In 50 Sodium Chloride 0.9% 50 ml @ 100 mls/hr IVPB Q24HR [facility] Rx#:[id number] Intake, IV Titration 296.477 509.488 269.094 Amount Amiodarone 450 mg In 0 218.338 Dextrose 5% in Water 250 ml @ 0.5 MG/MIN 16.667 mls/hr IV .Q15H [facility] Rx#: [id number] Heparin Sod,Pork in 0.45% 73.167 169.094 NaCl 25,000 unit In 0.45 % NaCl 1 250ml.bag @ 11. 751 UNITS/KG/HR 10 mls/hr IV .Q24H [facility] Rx#: [id number] Insulin Regular 100 unit 33.9 In Sodium Chloride 0.9% 100 ml @ Titrate IV .Q0M [facility] Rx#:[id number] Norepinephrine 8 mg In 134.451 47.563 0 Sodium Chloride 0.9% 250 ml @ 0.03 MCG/KG/MIN 4.94 mls/hr IV .Q24H [facility] Rx#: [id number] propofoL 1,000 mg In 128.126 170.420 100 Empty Bag 1 bag @ 15 MCG/ KG/MIN 7.659 mls/hr IV . Q13H4M [facility] Rx#:[id number] Tube Feeding 404 418 288 Other 90 90 60 Output: Urine 620 410 540 Other: Voiding Method Indwelling Catheter Indwelling Catheter Indwelling Catheter ABP, PAP, CO, CI - Last Documented Arterial Blood Pressure 116/43 - Labs CBC & Chem 7: 09/04/24 06:14 09/04/24 06:14 Labs: Abnormal Lab Results - Last 24 Hours (Table) 02/12/25 02/12/25 02/12/25 Range/Units 17:52 19:48 20:00 WBC (3.8-10.6) k/uL MCV (80.0-100.0) fL MCHC (31.0-37.0) g/dL Neutrophils # (1.3-7.7) k/uL Lymphocytes # (1.0-4.8) k/uL Macrocytosis PT (10.0-12.5) sec INR (<1.2) APTT 32.5 H (22.0-30.0) sec ABG pCO2 (35-45) mmHg ABG pO2 (83-108) mmHg ABG HCO3 (21-25) mmol/L ABG Total CO2 (19-24) mmol/L Sodium (137-145) mmol/L Chloride (98-107) mmol/L Carbon Dioxide (22-30) mmol/L BUN (7-17) mg/dL Glucose (74-99) mg/dL POC Glucose (mg/dL) 222 H 203 H (70-110) mg/dL 09/04/24 09/04/24 09/04/24 Range/Units 00:14 02:15 04:47 WBC (3.8-10.6) k/uL MCV (80.0-100.0) fL MCHC (31.0-37.0) g/dL Neutrophils # (1.3-7.7) k/uL Lymphocytes # (1.0-4.8) k/uL Macrocytosis PT (10.0-12.5) sec INR (<1.2) APTT 45.4 H (22.0-30.0) sec ABG pCO2 77 H* (35-45) mmHg ABG pO2 76 L (83-108) mmHg ABG HCO3 44 H* (21-25) mmol/L ABG Total CO2 46 H (19-24) mmol/L Sodium (137-145) mmol/L Chloride (98-107) mmol/L Carbon Dioxide (22-30) mmol/L BUN (7-17) mg/dL Glucose (74-99) mg/dL POC Glucose (mg/dL) 150 H (70-110) mg/dL 09/04/24 09/04/24 09/04/24 Range/Units 05:15 06:14 06:14 WBC 13.8 H (3.8-10.6) k/uL MCV 108.6 H (80.0-100.0) fL MCHC 30.9 L (31.0-37.0) g/dL Neutrophils # 12.5 H (1.3-7.7) k/uL Lymphocytes # 0.2 L (1.0-4.8) k/uL Macrocytosis Marked A PT 13.7 H (10.0-12.5) sec INR 1.3 H (<1.2) APTT (22.0-30.0) sec ABG pCO2 (35-45) mmHg ABG pO2 (83-108) mmHg ABG HCO3 (21-25) mmol/L ABG Total CO2 (19-24) mmol/L Sodium 132 L (137-145) mmol/L Chloride 89 L (98-107) mmol/L Carbon Dioxide 35 H (22-30) mmol/L BUN 89 H (7-17) mg/dL Glucose 178 H (74-99) mg/dL POC Glucose (mg/dL) (70-110) mg/dL 09/04/24 09/04/24 Range/Units 06:28 12:03 WBC (3.8-10.6) k/uL MCV (80.0-100.0) fL MCHC (31.0-37.0) g/dL Neutrophils # (1.3-7.7) k/uL Lymphocytes # (1.0-4.8) k/uL Macrocytosis PT (10.0-12.5) sec INR (<1.2) APTT (22.0-30.0) sec ABG pCO2 (35-45) mmHg ABG pO2 (83-108) mmHg ABG HCO3 (21-25) mmol/L ABG Total CO2 (19-24) mmol/L Sodium (137-145) mmol/L Chloride (98-107) mmol/L Carbon Dioxide (22-30) mmol/L BUN (7-17) mg/dL Glucose (74-99) mg/dL POC Glucose (mg/dL) 166 H 184 H (70-110) mg/dL Microbiology - Last 24 Hours (Table) 09/02/24 11:36 Gram Stain - Preliminary Sputum Sputum Culture - Preliminary Klebsiella oxytoca Streptococcus pneumoniae 09/03/24 10:16 Urine Culture - Final Urine,Catheterized 08/29/24 23:15 Blood Culture - Final Blood
[2024-09-04 18:18] LABS: Glucose,Whole Blood 166 mg/dL (70-110)
[2024-09-04 21:06] LABS: Glucose,Whole Blood 220 mg/dL (70-110)
[2024-09-04] MEDS: AMIODARONE 200 MG TAB PO SCH (21:08)
[2024-09-05 00:27] LABS: Glucose,Whole Blood 196 mg/dL (70-110)
[2024-09-05 04:54] LABS: ABG Base Excess 14.5 mmol/L; ABG Oxygen Saturation 96.7 % (94-97); ABG PH 7.38 (7.35-7.45); ABG PO2 87 mmHg (83-108); ABG TCO2 45 mmol/L (19-24)
[2024-09-05 05:27] LABS: ABG PCO2 73 mmHg (35-45)
[2024-09-05 05:28] LABS: ABG HCO3 43 mmol/L (21-25); Allen Test Performed? no
[2024-09-05 05:36] LABS: HGB 12.8 gm/dL (11.4-16.0); Hypochromasia Moderate; MCH 33.5 pg (25.0-35.0); MCHC 31.3 g/dL (31.0-37.0); MCV 106.9 fL (80.0-100.0); Macrocytosis Moderate; Mean Platelet Volume 9.6; Platelet Count 147 k/uL (150-450); RBC 3.84 m/uL (3.80-5.40); RDW 14.2 % (11.5-15.5)
[2024-09-05 05:51] LABS: African American GFR (CKD) 70 (>60 ml/min/1.73 sqM); Anion Gap 4 mmol/L; Blood Urea Nitrogen 84 mg/dL (7-17); Calcium 8.6 mg/dL (8.4-10.2); Chloride 92 mmol/L (98-107); Glucose 176 mg/dL (74-99); Non-African American GFR(CKD) 61 (>60 ml/min/1.73 sqM); Potassium 4.7 mmol/L (3.5-5.1); Sodium 136 mmol/L (137-145)
[2024-09-05 06:00] LABS: Glucose,Whole Blood 165 mg/dL (70-110)
[2024-09-05 06:10] LABS: Carbon Dioxide 40 mmol/L (22-30)
--- NOTE | 2024-09-05 07:49 | XR ---
EXAMINATION TYPE: XR chest 1V portable DATE OF EXAM: 09/05/2024 5:00 AM COMPARISON: Chest radiograph from one day prior. CLINICAL INDICATION: Female, 74 years old with history of Tube placement; [facility] TECHNIQUE: XR chest 1V portable Frontal view of the chest. Lungs/Pleura: There is no evidence of pleural effusion, focal consolidation, or pneumothorax. Pulmonary vascularity: Unremarkable. Heart/mediastinum: Cardiomediastinal silhouette is unremarkable. Musculoskeletal: No acute osseous pathology. Other findings: None Lines/Tubes: Endotracheal tube with distal tip 3.9 cm above the charles. Nasogastric tube with its distal tip and side-port projecting under the diaphragm. Left central venous catheter with distal tip at the cavoatrial junction. IMPRESSION: 1. Stable support line and tubes. 2. Cardiomegaly with small left pleural effusion. Correlate with serum BNP. [facility], , 09/05/2024 7:47 AM
[2024-09-05 11:52] LABS: Glucose,Whole Blood 153 mg/dL (70-110)
--- NOTE | 2024-09-05 13:10 | P.PN ---
Subjective Progress Note Date: 09/05/24 This is a 74-year-old female, familiar to my service, patient is known to have history of COPD, severe, history of chronic cor pulmonale, history of nonischemic cardiomyopathy and LV dysfunction as well as history of chronic atrial fibrillation maintained on Coumadin. Patient is also known to have history of moderate mitral regurgitation. Patient is normally on oxygen at 2 L/min, she is normally on diuretics, and she was very seen about a week ago in my office with worsening swelling of her lower extremities, and patient was placed on Aldactone in addition to her Lasix. Her leg swelling improved, however patient came into the ER on 08/28/2024, came in mostly with worsening shortness of breath, cough, wheezing, apparently when she was brought in by EMS she was found to be in tripod position and she was breathing quite heavy. Patient was placed on BiPAP, that seemed to improve her pulmonary status significantly on BiPAP. In the ER, patient was noted to have positive screening for acute influenza A. Last night I was notified about this patient about her shortness of breath and being BiPAP dependent, patient is known to have history of alcohol drinking, and there was also a concern about the patient going into alcohol withdrawal. Patient required some Ativan, admitted to the ICU for close monitoring. I was asked to see her in consultation. In addition to her COPD, patient had positive screening for influenza A. Today I saw the patient in the ICU, she is still on BiPAP 12/5/40%, patient is receiving Lasix, she is also on Aldactone, patient is on Tamiflu, and she is on her usual bronchodilators and on Solu-Medrol. WBC count is 11.9 hemoglobin 12.3 INR is 3.1 electrolytes are normal renal profile is normal troponin is less than 0.012 Evaluated today on 08/31/2024, patient remains in the ICU, patient is on 4 L nasal cannula, last night she was on BiPAP 12/5/40%, patient remains on bronchodilators, Lasix, Coumadin, and she is also on doxycycline. Baseline FEV1 from my office chart is 42% at best. Clearly the patient has severe underlying COPD. Patient is now on nasal cannula, had to be on BiPAP yesterday. Chest x- ray today is suggestive of interstitial edema, underlying pneumonia is felt to be less likely but not entirely ruled out. WBC count is 11.4 hemoglobin is 14.3 INR is 3.3 electrolytes are normal bicarb is 4 0 BUN is 27 creatinine 0.66 The patient is seen today September 01, 2024 in follow-up in the intensive care unit. She is currently sitting up in bed. She is quite restless. Moving from [id number]. She was on BiPAP 12/5 and 40% FiO2. She is currently on 4 L nasal cannula. Her O2 saturation did drop into the 70s when she had her oxygen off. She did require Ativan throughout the night. Recent arterial blood gases revealed a PH of 69, pCO2 79 and a pH of 7.38. She is continued on DuoNeb inhalations, Symbicort, Solu-Medrol. Empiric antibiotics in the form of doxycycline. She remains on IV diuretics. Remains on the CINM protocol. Anticoagulated with warfarin. White count 11.4. Hemoglobin 14.4. Platelets 169. INR 4.8. Sodium 150. Potassium 3.9. Bicarb 45. BUN 39. Creatinine 0.67. Chest x-ray reveals similar moderate interstitial opacities. The patient is seen today September 02, 2024 in follow-up in the intensive care unit. Throughout the night and early this morning she became more obtunded. She was maintained on BiPAP 12/5 and 50% FiO2. PaO2 of 90, pCO2 of 97 and a pH of 7.34. She subsequently had undergone intubation and mechanical ventilatory support. She is currently on assist-control mode at a rate of 20, tidal volume 350, FiO2 100% and a PEEP of 5. Follow-up blood gases revealed a PaO2 of 332, pCO2 75 and a pH of 7.43. The FiO2 was decreased to 40%. White count 11.4. Hemoglobin 14.7. Platelets 173. Sodium 150. Potassium 4.2. Bicarb 47. BUN 59. Creatinine 0.67. Glucose 378. AST 50. ALT 58. Amiodarone at 0.5 mg/h. Her INR was 7.2. She did receive vitamin K. She is requiring norepinephrine at 0.03 mcg/kg/min. Propofol at 15 mcg/kg/min. Continued on DuoNeb inhalations, Symbicort, doxycycline. Chest x-ray shows evidence of COPD with superimposed pulmonary vascular congestion. Ongoing patchy left basilar and retrocardiac opacity. The patient is seen today September 03, 2024 in follow-up in the intensive care unit. She remains intubated on mechanical ventilator. Currently on assist- control mode with a rate of 20, tidal volume 350, FiO2 40% and a PEEP of 5. Morning blood gases revealed a PaO2 of 83, pCO2 of 80 and a pH of 7.38. She is still having issues with atrial fibrillation with rapid ventricular response. She is on a amiodarone drip at 1 mg/min. Remains on norepinephrine at 3.4 mcg/min. D5W at 125 mL/h. Propofol at 20 mcg/kg/min. Insulin drip at 6 units/h. She is being nourished with vital HP at 30 mL/h with a goal of 38. Chest x-ray reveals diffuse interstitial changes on a background of COPD. Small left pleural effusion. Retrocardiac consolidation/atelectasis. Blood culture reveals no growth. Sputum culture reveals no growth to date. 14.5. Platelets 222. INR 1.6. Sodium 136. Potassium 3.8. Bicarb 45. BUN 70. Creatinine 0. 91. Glucose 213. She remains on DuoNeb and elations, Pulmicort and Perforomist inhalations, IV Solu-Medrol. Remains on warfarin. Remains on Protonix. The patient is seen today September 04, 2024 in follow-up in the intensive care unit. She remains intubated on the mechanical ventilator. Currently on assist- control mode with a rate of 20, tidal volume 350, FiO2 40% and a PEEP of 5. Morning blood gases revealed a PaO2 of 76, pCO2 77 and a pH of 7.36. She remains in atrial fibrillation with a rapid ventricular response and an undergone cardioversion this a.m. with 200 J and is currently back in sinus rhythm. She remains on amiodarone drip at 0.5 mg/min. Heparin drip per weight- based protocol. Sedated with propofol at 30 mcg/kg/min. Norepinephrine at 1 mcg/min. Lactated Ringer's at 75 mL/h. She is being nourished with vital HP at 38 mL/h which is goal. She is continued on DuoNeb and elations, Pulmicort and Perforomist inhalations, IV Solu-Medrol. Protonix for GI prophylaxis. Remains on doxycycline. Sputum culture now revealing Streptococcus pneumoniae. White count 13.8. Hemoglobin 13.9. Platelets 157. INR 1.3. Sodium 132. Potassium 4.9. Bicarb 35. BUN 89. Creatinine 0.95. Glucose 178. The patient is seen today September 05, 2024 in follow-up in the intensive care unit. She remains intubated on the mechanical ventilator. Currently on assist- control mode with a rate of 20, tidal valve 350, FiO2 40% and a PEEP of 5. Morning blood gases revealed a PaO2 of 87, pCO2 of 73 and a pH of 7.38. Chest x-ray reveals cardiomegaly with small left pleural effusion. She is sedated on propofol at 30 mcg/kg/min. Remains on norepinephrine at 2 mcg/min. Continued on a heparin drip per weight-based protocol. Lactated Ringer's at 75 mL/h. She is being nourished with vital HP at 30 mL/h which is goal. She is continued on ceftriaxone. Sputum culture was positive for Klebsiella oxytoca and Streptococcus pneumoniae. Blood culture revealed no growth. Urine culture revealed no growth. White count 16.0. Hemoglobin 12.8. Platelets 147. Sodium 136. Potassium 4.7. Bicarb 40. BUN 84. Creatinine 0.94. Glucose 176. She is maintained on DuoNeb inhalations, Pulmicort and Perforomist inhalations, Solu-Medrol. Protonix for GI prophylaxis. Objective - Vital Signs Vital signs: Vital Signs Temp 98.4 F 09/05/24 12:00 Pulse 85 09/05/24 12:00 Resp 21 09/05/24 12:00 BP 125/56 09/05/24 10:00 Pulse Ox 95 09/05/24 12:00 FiO2 40 09/05/24 12:00 Intake & Output 09/04/24 09/05/24 09/05/24 18:59 06:59 18:59 Intake Total 0465.561 9072.591 1237.926 Output Total 890 1055 724 Balance 995.120 546.591 513.926 Weight 85.1 kg 72.6 kg Intake: IV 1122 972 536 0.9 3cc/ hr a-line 36 36 18 0.9 3cc/hr cvp 36 36 18 Doxycycline 100 mg In 100 Sodium Chloride 0.9% 100 ml @ 100 mls/hr IVPB Q12HR [facility] Rx#:[id number] Lactated Ringers 1,000 ml 900 900 450 @ 75 mls/hr IV .[id number] [facility] Rx#:[id number] cefTRIAXone 2 gm In 50 50 Sodium Chloride 0.9% 50 ml @ 100 mls/hr IVPB Q24HR [facility] Rx#:[id number] Intake, IV Titration 385.120 179.591 401.926 Amount Heparin Sod,Pork in 0.45% 169.094 250 NaCl 25,000 unit In 0.45 % NaCl 1 250ml.bag @ 11. 751 UNITS/KG/HR 10 mls/hr IV .Q24H [facility] Rx#: [id number] Norepinephrine 8 mg In 16.026 79.591 47.288 Sodium Chloride 0.9% 250 ml @ 0.03 MCG/KG/MIN 4.94 mls/hr IV .Q24H [facility] Rx#: [id number] propofoL 1,000 mg In 200 100 104.638 Empty Bag 1 bag @ 15 MCG/ KG/MIN 7.659 mls/hr IV . Q13H4M [facility] Rx#:[id number] Oral 60 Tube Feeding 318 360 180 Other 60 90 60 Output: Urine 890 1055 724 Other: Voiding Method Indwelling Catheter Indwelling Catheter Indwelling Catheter ABP, PAP, CO, CI - Last Documented Arterial Blood Pressure 131/43 - Exam GENERAL EXAM: Intubated, sedated 74-year-old female, on the ventilator. HEAD: Normocephalic. EYES: Sluggish reaction of pupils, equal size. NOSE: Clear with pink turbinates. THROAT: Oral endotracheal and gastric tube secured in place. No erythema or exudates. NECK: No masses, no JVD. CHEST: No chest wall deformity. Left subclavian triple-lumen catheter in place. LUNGS: Equal air entry with few scattered rhonchi. CVS: S1 and S2 normal with no audible murmur, regular rhythm. ABDOMEN: No hepatosplenomegaly, normal bowel sounds, no guarding or rigidity. SPINE: No scoliosis or deformity SKIN: Areas of ecchymosis and bruising. CENTRAL NERVOUS SYSTEM: Sedated, tone is normal in all 4 extremities. EXTREMITIES: Right radial arterial line in place. There is no peripheral edema. Peripheral pulses are intact. - Labs CBC & Chem 7: 09/05/24 05:08 09/05/24 05:08 Labs: Abnormal Lab Results - Last 24 Hours (Table) 09/04/24 09/04/24 09/05/24 Range/Units 18:16 21:05 00:26 WBC (3.8-10.6) k/uL MCV (80.0-100.0) fL Plt Count (150-450) k/uL APTT (22.0-30.0) sec ABG pCO2 (35-45) mmHg ABG HCO3 (21-25) mmol/L ABG Total CO2 (19-24) mmol/L Sodium (137-145) mmol/L Chloride (98-107) mmol/L Carbon Dioxide (22-30) mmol/L BUN (7-17) mg/dL Glucose (74-99) mg/dL POC Glucose (mg/dL) 166 H 220 H 196 H (70-110) mg/dL 09/05/24 09/05/24 09/05/24 Range/Units 01:45 04:52 05:08 WBC 16.0 H (3.8-10.6) k/uL MCV 106.9 H (80.0-100.0) fL Plt Count 147 L (150-450) k/uL APTT 46.2 H (22.0-30.0) sec ABG pCO2 73 H* (35-45) mmHg ABG HCO3 43 H* (21-25) mmol/L ABG Total CO2 45 H (19-24) mmol/L Sodium (137-145) mmol/L Chloride (98-107) mmol/L Carbon Dioxide (22-30) mmol/L BUN (7-17) mg/dL Glucose (74-99) mg/dL POC Glucose (mg/dL) (70-110) mg/dL 09/05/24 09/05/24 09/05/24 Range/Units 05:08 05:59 11:50 WBC (3.8-10.6) k/uL MCV (80.0-100.0) fL Plt Count (150-450) k/uL APTT (22.0-30.0) sec ABG pCO2 (35-45) mmHg ABG HCO3 (21-25) mmol/L ABG Total CO2 (19-24) mmol/L Sodium 136 L (137-145) mmol/L Chloride 92 L (98-107) mmol/L Carbon Dioxide 40 H (22-30) mmol/L BUN 84 H (7-17) mg/dL Glucose 176 H (74-99) mg/dL POC Glucose (mg/dL) 165 H 153 H (70-110) mg/dL Microbiology - Last 24 Hours (Table) 09/02/24 11:36 Gram Stain - Final Sputum Sputum Culture - Final Klebsiella oxytoca Streptococcus pneumoniae 09/03/24 10:16 Urine Culture - Final Urine,Catheterized Assessment and Plan Assessment: Acute on chronic hypoxic respiratory failure secondary to a COPD exacerbation, systolic CHF exacerbation, influenza A. The patient required intubation and mechanical ventilatory support on 09/02/2024 Acute influenza A Acute exacerbation of COPD Acute on chronic systolic congestive heart failure Acute Klebsiella oxytoca, Streptococcus pneumoniae pneumonia Atrial fibrillation with rapid ventricular response, cardioverted today with 200 J, currently in sinus rhythm, remains on a heparin drip History of alcohol use Acute metabolic encephalopathy secondary to above Transaminitis with coagulopathy, warfarin on hold Moderate mitral regurgitation Nonischemic cardiomyopathy Hypertension Dyslipidemia Hypothyroidism Plan: The patient was seen and evaluated Chest x-ray, ABGs, labs and medications reviewed Give Lasix 20 mg IVP x 1 Continue Rocephin Continue heparin drip Titrate the norepinephrine as tolerated Propofol for sedation Being nourished with vital HP Continue lactated Ringer's at 75 mL/h Continue bronchodilators, steroids Interruption of sedation We will continue to follow I have personally seen and examined the patient, performed the documentation and the assessment and plan as written. Number of minutes spent on the visit: 20 Dictation was produced using [employer] dictation software. Please excuse any grammatical, word or spelling errors.
[2024-09-05] MEDS: FUROSEMIDE 10 MG/ML 2 ML VIAL IV ONE (13:28)
--- NOTE | 2024-09-05 14:49 | P.PN ---
Subjective Progress Note Date: 09/05/24 Hospital Course: Patient is a 74-year-old female with past medical history significant for COPD, CHF, atrial fibrillation on Coumadin, and hypertension presents today for 1 week worsening of breathing as well as significant cough. She wears 2 L of oxygen at night but says that she has had to wear 2 L 24/7 for the past week. About 5 days ago she saw Dr. Lorenzo and he started her on spironolactone due to leg swelling and fluid retention. She states that the leg swelling has improved since. She has experienced COPD exacerbations like this before. Of note her granddaughter had the flu last week. Treated for management of acute on chronic hypoxic respiratory failure secondary to COPD exacerbation, influenza A, acute HFrEF exacerbation. Cardiology consulted. Started on IV Lasix, Coumadin continued, TTE ordered. Severe LV systolic dysfunction with EF 35%, severe pulmonary hypertension. Added Farxiga to her current medical regimen. Elevated LFTs, bilirubin, abdominal ultrasound was obtained and showed no acute finding, negative Underwood sign, adherent gallstone versus small polyp measuring 3 mm. Nonobstructing renal calculi on the right. 08/29 in the evening patient became progressively short of breath, started hallucinating. She was placed on BiPAP, given her history of alcohol drinking, she was started on CIWA with Ativan, transferred to ICU for close monitoring. Patient became obtunded and was intubated on 09/02. Went into A-Fib with RVR, successfully cardioverted on 09/03. Pertinent Imaging: Chest x-ray reviewed personally, left pleural effusion noted, cardiomegaly. Subjective: Patient is intubated and sedated Vitals Signs Reviewed. General: [Ill-appearing, intubated, sedated Derm: [warm], [dry], multiple bruises Head: [atraumatic], [normocephalic], [symmetric] Eyes: [EOMI], [no lid lag], [anicteric sclera] Mouth: [no lip lesion], [mucus membranes moist] Cardiovascular: [S1S2 reg], [no murmur] Lungs diminished breath sounds bilaterally Abdominal: [soft], [ nontender to palpation], [no guarding], [no appreciable organomegaly] Ext: [no gross muscle atrophy], [no edema], [no contractures] Neuro: Pupils reactive, does not follow commands Psych: [Intubated, sedated Data Reviewed Today: Pertinent Labs: CBC showed WBC of 16.0, normal stable hemoglobin, platelet count 147, ABG with normal pH, pCO2 73, pO2 1 7, less than 136, bicarb 40, normal and stable creatinine, blood sugars well-controlled. Assessment and Plan: Atrial fibrillation with RVR and Supratherapeutic INR Status post cardioversion 09/03. Started on amiodarone 40 mg p.o. twice daily Continue Metoprolol 50 mg PO BID. Continue heparin drip while monitoring APTT. Acute on chronic hypoxic respiratory failure multifactorial, secondary to acute influenza A, bacterial pneumonia Klebsiella oxytoca Streptococcus pneumonia, acute COPD exacerbation, acute on chronic HFrEF Severe pulmonary hypertension Acute COPD exacerbation Anxiety Acute on chronic systolic heart failure Severe pulmonary hypertension Moderate mitral regurgitation -Laisx, Aldactone, Losartan, Farxiga on hold. One-time dose Lasix 2 09/05 -decrease IV Solu-Medrol 40 mg every 12 hours. -Doxycycline switched to Rocephin 2g IV QD today. -Continue with DuoNeb Q4H scheduled and Q2N PRN. -Continue Pulmicort 1 mg INH BID and Performist 20 mcg INH BID. -WBC this morning 16.0. CBC to monitor infection -Cardiology on board. Director Dental Services on board -Discussed with RN, plan for sedation holidays -called family at [phone] - no response 09/05 Acute toxic metabolic encephalopathy secondary to the above History of alcohol abuse Haldol 4 mg IV Q6H PRN agitation CIWA protocol with Ativan PRN IV thiamine 100 daily Hypertension now hypotensive requiring Levophed at 0.03 mcg/kg/min DVT prophylaxis: Heparin drip Anticipated discharge pending Clinical course Objective - Vital Signs Vital signs: Vital Signs Temp 98.4 F 09/05/24 12:00 Pulse 80 09/05/24 14:15 Resp 20 09/05/24 14:15 BP 125/56 09/05/24 10:00 Pulse Ox 94 L 09/05/24 14:15 FiO2 40 09/05/24 12:00 Intake & Output 09/04/24 09/05/24 09/05/24 18:59 06:59 18:59 Intake Total 7357.741 1228.591 1459.926 Output Total 890 1055 1100 Balance 995.120 546.591 359.926 Weight 85.1 kg 72.6 kg Intake: IV 1122 972 698 0.9 3cc/ hr a-line 36 36 24 0.9 3cc/hr cvp 36 36 24 Doxycycline 100 mg In 100 Sodium Chloride 0.9% 100 ml @ 100 mls/hr IVPB Q12HR [facility] Rx#:[id number] Lactated Ringers 1,000 ml 900 900 600 @ 75 mls/hr IV .[id number] [facility] Rx#:[id number] cefTRIAXone 2 gm In 50 50 Sodium Chloride 0.9% 50 ml @ 100 mls/hr IVPB Q24HR [facility] Rx#:[id number] Intake, IV Titration 385.120 179.591 401.926 Amount Heparin Sod,Pork in 0.45% 169.094 250 NaCl 25,000 unit In 0.45 % NaCl 1 250ml.bag @ 11. 751 UNITS/KG/HR 10 mls/hr IV .Q24H [facility] Rx#: [id number] Norepinephrine 8 mg In 16.026 79.591 47.288 Sodium Chloride 0.9% 250 ml @ 0.03 MCG/KG/MIN 4.94 mls/hr IV .Q24H [facility] Rx#: [id number] propofoL 1,000 mg In 200 100 104.638 Empty Bag 1 bag @ 15 MCG/ KG/MIN 7.659 mls/hr IV . Q13H4M [facility] Rx#:[id number] Oral 60 Tube Feeding 318 360 240 Other 60 90 60 Output: Urine 890 1055 1100 Other: Voiding Method Indwelling Catheter Indwelling Catheter Indwelling Catheter ABP, PAP, CO, CI - Last Documented Arterial Blood Pressure 127/41 - Labs CBC & Chem 7: 09/05/24 05:08 09/05/24 05:08 Labs: Abnormal Lab Results - Last 24 Hours (Table) 09/04/24 09/04/24 09/05/24 Range/Units 18:16 21:05 00:26 WBC (3.8-10.6) k/uL MCV (80.0-100.0) fL Plt Count (150-450) k/uL APTT (22.0-30.0) sec ABG pCO2 (35-45) mmHg ABG HCO3 (21-25) mmol/L ABG Total CO2 (19-24) mmol/L Sodium (137-145) mmol/L Chloride (98-107) mmol/L Carbon Dioxide (22-30) mmol/L BUN (7-17) mg/dL Glucose (74-99) mg/dL POC Glucose (mg/dL) 166 H 220 H 196 H (70-110) mg/dL 09/05/24 09/05/24 09/05/24 Range/Units 01:45 04:52 05:08 WBC 16.0 H (3.8-10.6) k/uL MCV 106.9 H (80.0-100.0) fL Plt Count 147 L (150-450) k/uL APTT 46.2 H (22.0-30.0) sec ABG pCO2 73 H* (35-45) mmHg ABG HCO3 43 H* (21-25) mmol/L ABG Total CO2 45 H (19-24) mmol/L Sodium (137-145) mmol/L Chloride (98-107) mmol/L Carbon Dioxide (22-30) mmol/L BUN (7-17) mg/dL Glucose (74-99) mg/dL POC Glucose (mg/dL) (70-110) mg/dL 09/05/24 09/05/24 09/05/24 Range/Units 05:08 05:59 11:50 WBC (3.8-10.6) k/uL MCV (80.0-100.0) fL Plt Count (150-450) k/uL APTT (22.0-30.0) sec ABG pCO2 (35-45) mmHg ABG HCO3 (21-25) mmol/L ABG Total CO2 (19-24) mmol/L Sodium 136 L (137-145) mmol/L Chloride 92 L (98-107) mmol/L Carbon Dioxide 40 H (22-30) mmol/L BUN 84 H (7-17) mg/dL Glucose 176 H (74-99) mg/dL POC Glucose (mg/dL) 165 H 153 H (70-110) mg/dL Microbiology - Last 24 Hours (Table) 09/02/24 11:36 Gram Stain - Final Sputum Sputum Culture - Final Klebsiella oxytoca Streptococcus pneumoniae 09/03/24 10:16 Urine Culture - Final Urine,Catheterized
--- NOTE | 2024-09-05 16:32 | P.PN ---
Subjective Progress Note Date: 09/05/24 Was seen and evaluated this morning but apparently she was transferred to the intensive care unit overnight because of change in mental status and deterioration of the respiratory status but currently she is on BiPAP. She underwent an echo which revealed cardiomyopathy with EF appeared to be in the range of 30% with evidence of severe pulmonary hypertension and she is on maximized medical treatment for cardiomyopathy except that she is not on SGLT2 inhibitors and with that and going to add Farxiga to the current medical regimen. Also follow-up with the second set of troponin. She continues to be on Lasix IV. Kidney function remains stable. August 31, 2024 The patient was seen and evaluated this morning. She is overall doing better. She was on BiPAP and now she is on nasal cannula which she has been diuresing very well with the kidney function remains stable. She is on oral anticoagula tion with Coumadin. From a cardiovascular standpoint of view, we will continue the current medical regimen including the current dose of Lasix IV and continue monitor the kidney function and electrolytes and follow-up with the patient. The physical examination is remarkable for bilateral rhonchi and bilateral lower extremities edema 09/01/2024 Patient is seen and examined at bedside this a.m. She is on BiPAP support. Patient was getting agitated for which she received some Dilaudid and currently patient is somnolent. 09/02/2024 Patient is seen and examined at bedside this a.m. Patient was obtunded and not tolerating BiPAP with increased work of breathing. For this she was intubated this morning. Labs shows hemoglobin 14.7, MCV is elevated at 112, INR is elevated at 7.2 ABG shows respiratory alkalosis with hypercapnia BUN 59, creatinine 0.6 09/03/2024 Patient seen and examined at bedside this a.m. On 09/02/2024 she was intubated because of being obtunded and because of increased work of breathing. Since intubation and with propofol, patient had stayed hypotensive. For this she has required norepinephrine. Currently she is on 0.03 mcg infusion. With the use of norepinephrine she has persisted in A-fib RVR with minimal response to beta-sudha and amiodarone. 09/04/2024 Underwent DCCV with successful cardioversion to normal sinus rhythm. Started on beta-sudha. 09/05/2024 Patient is seen and examined at bedside this a.m. She continues to be on ventilator support. Continues to be in sinus rhythm. On minimal norepinephrine. On exam Irregularly irregular pulses, S1-S2 audible, no significant murmurs appreciated Intubated, ET tube in place, on ventilator support, mild crackles or rhonchi audible No significant swelling noticed in bilateral lower extremity Under sedation, detailed neuroexam was not performed ASSESSMENT: # Atrial fibrillation with RVR since 09/01/2024, 11 PM # Mixed shock with complaints of distributive and cardiogenic etiology # Ventilator-dependent respiratory failure due to Acute influenza A # Acute on chronic heart failure with reduced EF # Nonischemic cardiomyopathy with a EF of 35% # Severe pulmonary hypertension # History of paroxysmal atrial fibrillation, on Coumadin outpatient # Supratherapeutic INR, present on admission. Now resolved. # History of nonischemic cardiomyopathy # Hypertension # Hyperlipidemia # Moderate mitral regurgitation PLAN: Wean down norepinephrine Continue amiodarone and metoprolol 50 mg twice isha Hold Farxiga. Hold diuretics for now. Prognosis is guarded Objective - Vital Signs Vital signs: Vital Signs Temp 98.4 F 09/05/24 12:00 Pulse 83 09/05/24 16:15 Resp 20 09/05/24 16:15 BP 125/56 09/05/24 10:00 Pulse Ox 93 L 09/05/24 16:15 FiO2 40 09/05/24 16:00 Intake & Output 09/04/24 09/05/24 09/05/24 18:59 06:59 18:59 Intake Total 0819.529 2773.591 1711.926 Output Total 890 1055 1575 Balance 995.120 546.591 136.926 Weight 85.1 kg 72.6 kg Intake: IV 1122 972 860 0.9 3cc/ hr a-line 36 36 30 0.9 3cc/hr cvp 36 36 30 Doxycycline 100 mg In 100 Sodium Chloride 0.9% 100 ml @ 100 mls/hr IVPB Q12HR [facility] Rx#:[id number] Lactated Ringers 1,000 ml 900 900 750 @ 75 mls/hr IV .[id number] [facility] Rx#:[id number] cefTRIAXone 2 gm In 50 50 Sodium Chloride 0.9% 50 ml @ 100 mls/hr IVPB Q24HR [facility] Rx#:[id number] Intake, IV Titration 385.120 179.591 401.926 Amount Heparin Sod,Pork in 0.45% 169.094 250 NaCl 25,000 unit In 0.45 % NaCl 1 250ml.bag @ 11. 751 UNITS/KG/HR 10 mls/hr IV .Q24H [facility] Rx#: [id number] Norepinephrine 8 mg In 16.026 79.591 47.288 Sodium Chloride 0.9% 250 ml @ 0.03 MCG/KG/MIN 4.94 mls/hr IV .Q24H [facility] Rx#: [id number] propofoL 1,000 mg In 200 100 104.638 Empty Bag 1 bag @ 15 MCG/ KG/MIN 7.659 mls/hr IV . Q13H4M [facility] Rx#:[id number] Oral 60 Tube Feeding 318 360 300 Other 60 90 90 Output: Urine 890 1055 1575 Other: Voiding Method Indwelling Catheter Indwelling Catheter Indwelling Catheter ABP, PAP, CO, CI - Last Documented Arterial Blood Pressure 118/37 - Labs CBC & Chem 7: 09/05/24 05:08 09/05/24 05:08 Labs: Abnormal Lab Results - Last 24 Hours (Table) 09/04/24 09/04/24 09/05/24 Range/Units 18:16 21:05 00:26 WBC (3.8-10.6) k/uL MCV (80.0-100.0) fL Plt Count (150-450) k/uL APTT (22.0-30.0) sec ABG pCO2 (35-45) mmHg ABG HCO3 (21-25) mmol/L ABG Total CO2 (19-24) mmol/L Sodium (137-145) mmol/L Chloride (98-107) mmol/L Carbon Dioxide (22-30) mmol/L BUN (7-17) mg/dL Glucose (74-99) mg/dL POC Glucose (mg/dL) 166 H 220 H 196 H (70-110) mg/dL 09/05/24 09/05/24 09/05/24 Range/Units 01:45 04:52 05:08 WBC 16.0 H (3.8-10.6) k/uL MCV 106.9 H (80.0-100.0) fL Plt Count 147 L (150-450) k/uL APTT 46.2 H (22.0-30.0) sec ABG pCO2 73 H* (35-45) mmHg ABG HCO3 43 H* (21-25) mmol/L ABG Total CO2 45 H (19-24) mmol/L Sodium (137-145) mmol/L Chloride (98-107) mmol/L Carbon Dioxide (22-30) mmol/L BUN (7-17) mg/dL Glucose (74-99) mg/dL POC Glucose (mg/dL) (70-110) mg/dL 09/05/24 09/05/24 09/05/24 Range/Units 05:08 05:59 11:50 WBC (3.8-10.6) k/uL MCV (80.0-100.0) fL Plt Count (150-450) k/uL APTT (22.0-30.0) sec ABG pCO2 (35-45) mmHg ABG HCO3 (21-25) mmol/L ABG Total CO2 (19-24) mmol/L Sodium 136 L (137-145) mmol/L Chloride 92 L (98-107) mmol/L Carbon Dioxide 40 H (22-30) mmol/L BUN 84 H (7-17) mg/dL Glucose 176 H (74-99) mg/dL POC Glucose (mg/dL) 165 H 153 H (70-110) mg/dL Microbiology - Last 24 Hours (Table) 09/02/24 11:36 Gram Stain - Final Sputum Sputum Culture - Final Klebsiella oxytoca Streptococcus pneumoniae 09/03/24 10:16 Urine Culture - Final Urine,Catheterized
[2024-09-05 17:34] LABS: Glucose,Whole Blood 162 mg/dL (70-110)
[2024-09-06 00:05] LABS: Glucose,Whole Blood 131 mg/dL (70-110)
[2024-09-06 04:46] LABS: HCT 39.1 % (34.0-46.0); HGB 12.2 gm/dL (11.4-16.0); MCH 32.9 pg (25.0-35.0); MCHC 31.1 g/dL (31.0-37.0); MCV 105.7 fL (80.0-100.0); Macrocytosis Moderate; Mean Platelet Volume 9.4; Platelet Count 157 k/uL (150-450); RDW 14.7 % (11.5-15.5); WBC 13.2 k/uL (3.8-10.6)
[2024-09-06 05:11] LABS: ABG Base Excess 16.1 mmol/L; ABG Oxygen Saturation 95.8 % (94-97); ABG PCO2 66 mmHg (35-45); ABG PH 7.43 (7.35-7.45); ABG PO2 79 mmHg (83-108); ABG TCO2 46 mmol/L (19-24)
[2024-09-06 05:15] LABS: ABG HCO3 44 mmol/L (21-25); Allen Test Performed? no
[2024-09-06 05:20] LABS: Anion Gap 4 mmol/L; Chloride 96 mmol/L (98-107); Glucose 137 mg/dL (74-99); Potassium 5.3 mmol/L (3.5-5.1); Sodium 140 mmol/L (137-145)
[2024-09-06 05:50] LABS: African American GFR (CKD) 89 (>60 ml/min/1.73 sqM); Blood Urea Nitrogen 76 mg/dL (7-17); Calcium 8.4 mg/dL (8.4-10.2); Non-African American GFR(CKD) 77 (>60 ml/min/1.73 sqM)
[2024-09-06 05:53] LABS: Glucose,Whole Blood 106 mg/dL (70-110)
[2024-09-06 05:59] LABS: Carbon Dioxide 40 mmol/L (22-30)
--- NOTE | 2024-09-06 07:42 | XR ---
EXAMINATION TYPE: XR chest 1V portable DATE OF EXAM: 09/06/2024 5:08 AM COMPARISON: Chest radiograph from one day prior. CLINICAL INDICATION: Female, 74 years old with history of intubated; [facility] TECHNIQUE: XR chest 1V portable Frontal view of the chest. FINDINGS: Lungs/Pleura: There is no evidence of pleural effusion, focal consolidation, or pneumothorax. Pulmonary vascularity: Unremarkable. Heart/mediastinum: Cardiomediastinal silhouette is unremarkable. Musculoskeletal: No acute osseous pathology. Other findings: None Lines/Tubes: Endotracheal tube with distal tip 3.1 cm above the charles. Nasogastric tube with its distal tip and side-port projecting under the diaphragm. Left central venous catheter with distal tip at the cavoatrial junction. IMPRESSION: 1. Stable support line and tubes. 2. Cardiomegaly with small left pleural effusion. Correlate with serum BNP. [facility], , 09/06/2024 7:40 AM
[2024-09-06] MEDS: SENNOSIDES 8.6 MG TAB PO SCH (09:48)
--- NOTE | 2024-09-06 11:02 | P.PN ---
Subjective Progress Note Date: 09/06/24 This is a 74-year-old female, familiar to my service, patient is known to have history of COPD, severe, history of chronic cor pulmonale, history of nonischemic cardiomyopathy and LV dysfunction as well as history of chronic atrial fibrillation maintained on Coumadin. Patient is also known to have history of moderate mitral regurgitation. Patient is normally on oxygen at 2 L/min, she is normally on diuretics, and she was very seen about a week ago in my office with worsening swelling of her lower extremities, and patient was placed on Aldactone in addition to her Lasix. Her leg swelling improved, however patient came into the ER on 08/28/2024, came in mostly with worsening shortness of breath, cough, wheezing, apparently when she was brought in by EMS she was found to be in tripod position and she was breathing quite heavy. Patient was placed on BiPAP, that seemed to improve her pulmonary status significantly on BiPAP. In the ER, patient was noted to have positive screening for acute influenza A. Last night I was notified about this patient about her shortness of breath and being BiPAP dependent, patient is known to have history of alcohol drinking, and there was also a concern about the patient going into alcohol withdrawal. Patient required some Ativan, admitted to the ICU for close monitoring. I was asked to see her in consultation. In addition to her COPD, patient had positive screening for influenza A. Today I saw the patient in the ICU, she is still on BiPAP 12/5/40%, patient is receiving Lasix, she is also on Aldactone, patient is on Tamiflu, and she is on her usual bronchodilators and on Solu-Medrol. WBC count is 11.9 hemoglobin 12.3 INR is 3.1 electrolytes are normal renal profile is normal troponin is less than 0.012 Evaluated today on 08/31/2024, patient remains in the ICU, patient is on 4 L nasal cannula, last night she was on BiPAP 12/5/40%, patient remains on bronchodilators, Lasix, Coumadin, and she is also on doxycycline. Baseline FEV1 from my office chart is 42% at best. Clearly the patient has severe underlying COPD. Patient is now on nasal cannula, had to be on BiPAP yesterday. Chest x- ray today is suggestive of interstitial edema, underlying pneumonia is felt to be less likely but not entirely ruled out. WBC count is 11.4 hemoglobin is 14.3 INR is 3.3 electrolytes are normal bicarb is 4 0 BUN is 27 creatinine 0.66 The patient is seen today September 01, 2024 in follow-up in the intensive care unit. She is currently sitting up in bed. She is quite restless. Moving from [id number]. She was on BiPAP 12/5 and 40% FiO2. She is currently on 4 L nasal cannula. Her O2 saturation did drop into the 70s when she had her oxygen off. She did require Ativan throughout the night. Recent arterial blood gases revealed a PH of 69, pCO2 79 and a pH of 7.38. She is continued on DuoNeb inhalations, Symbicort, Solu-Medrol. Empiric antibiotics in the form of doxycycline. She remains on IV diuretics. Remains on the CIKY protocol. Anticoagulated with warfarin. White count 11.4. Hemoglobin 14.4. Platelets 169. INR 4.8. Sodium 150. Potassium 3.9. Bicarb 45. BUN 39. Creatinine 0.67. Chest x-ray reveals similar moderate interstitial opacities. The patient is seen today September 02, 2024 in follow-up in the intensive care unit. Throughout the night and early this morning she became more obtunded. She was maintained on BiPAP 12/5 and 50% FiO2. PaO2 of 90, pCO2 of 97 and a pH of 7.34. She subsequently had undergone intubation and mechanical ventilatory support. She is currently on assist-control mode at a rate of 20, tidal volume 350, FiO2 100% and a PEEP of 5. Follow-up blood gases revealed a PaO2 of 332, pCO2 75 and a pH of 7.43. The FiO2 was decreased to 40%. White count 11.4. Hemoglobin 14.7. Platelets 173. Sodium 150. Potassium 4.2. Bicarb 47. BUN 59. Creatinine 0.67. Glucose 378. AST 50. ALT 58. Amiodarone at 0.5 mg/h. Her INR was 7.2. She did receive vitamin K. She is requiring norepinephrine at 0.03 mcg/kg/min. Propofol at 15 mcg/kg/min. Continued on DuoNeb inhalations, Symbicort, doxycycline. Chest x-ray shows evidence of COPD with superimposed pulmonary vascular congestion. Ongoing patchy left basilar and retrocardiac opacity. The patient is seen today September 03, 2024 in follow-up in the intensive care unit. She remains intubated on mechanical ventilator. Currently on assist- control mode with a rate of 20, tidal volume 350, FiO2 40% and a PEEP of 5. Morning blood gases revealed a PaO2 of 83, pCO2 of 80 and a pH of 7.38. She is still having issues with atrial fibrillation with rapid ventricular response. She is on a amiodarone drip at 1 mg/min. Remains on norepinephrine at 3.4 mcg/min. D5W at 125 mL/h. Propofol at 20 mcg/kg/min. Insulin drip at 6 units/h. She is being nourished with vital HP at 30 mL/h with a goal of 38. Chest x-ray reveals diffuse interstitial changes on a background of COPD. Small left pleural effusion. Retrocardiac consolidation/atelectasis. Blood culture reveals no growth. Sputum culture reveals no growth to date. 14.5. Platelets 222. INR 1.6. Sodium 136. Potassium 3.8. Bicarb 45. BUN 70. Creatinine 0. 91. Glucose 213. She remains on DuoNeb and elations, Pulmicort and Perforomist inhalations, IV Solu-Medrol. Remains on warfarin. Remains on Protonix. The patient is seen today September 04, 2024 in follow-up in the intensive care unit. She remains intubated on the mechanical ventilator. Currently on assist- control mode with a rate of 20, tidal volume 350, FiO2 40% and a PEEP of 5. Morning blood gases revealed a PaO2 of 76, pCO2 77 and a pH of 7.36. She remains in atrial fibrillation with a rapid ventricular response and an undergone cardioversion this a.m. with 200 J and is currently back in sinus rhythm. She remains on amiodarone drip at 0.5 mg/min. Heparin drip per weight- based protocol. Sedated with propofol at 30 mcg/kg/min. Norepinephrine at 1 mcg/min. Lactated Ringer's at 75 mL/h. She is being nourished with vital HP at 38 mL/h which is goal. She is continued on DuoNeb and elations, Pulmicort and Perforomist inhalations, IV Solu-Medrol. Protonix for GI prophylaxis. Remains on doxycycline. Sputum culture now revealing Streptococcus pneumoniae. White count 13.8. Hemoglobin 13.9. Platelets 157. INR 1.3. Sodium 132. Potassium 4.9. Bicarb 35. BUN 89. Creatinine 0.95. Glucose 178. The patient is seen today September 05, 2024 in follow-up in the intensive care unit. She remains intubated on the mechanical ventilator. Currently on assist- control mode with a rate of 20, tidal valve 350, FiO2 40% and a PEEP of 5. Morning blood gases revealed a PaO2 of 87, pCO2 of 73 and a pH of 7.38. Chest x-ray reveals cardiomegaly with small left pleural effusion. She is sedated on propofol at 30 mcg/kg/min. Remains on norepinephrine at 2 mcg/min. Continued on a heparin drip per weight-based protocol. Lactated Ringer's at 75 mL/h. She is being nourished with vital HP at 30 mL/h which is goal. She is continued on ceftriaxone. Sputum culture was positive for Klebsiella oxytoca and Streptococcus pneumoniae. Blood culture revealed no growth. Urine culture revealed no growth. White count 16.0. Hemoglobin 12.8. Platelets 147. Sodium 136. Potassium 4.7. Bicarb 40. BUN 84. Creatinine 0.94. Glucose 176. She is maintained on DuoNeb inhalations, Pulmicort and Perforomist inhalations, Solu-Medrol. Protonix for GI prophylaxis. The patient is seen today September 06, 2019 tidal valve 350, FiO2 40% and a PEEP of 5. Morning blood gases revealed a PaO2 of 79, pCO2 of 66 and a pH of 7.43. She is sedated with propofol 25 mcg/kg/min. Currently on norepinephrine at 2.1 mcg/min. Lactated Ringer's at 75 mL/h. Heparin drip per weight-based protocol. She is being nourished with vital HP 30 mL/h which is goal. She is currently in sinus rhythm. Yesterday's daily interruption of sedation the patient became quite hypertensive and tachycardic. Plan for DIS again today. Performance improved Pulmicort inhalations. IV Solu-Medrol. Continued on ceftriaxone. Sputum culture was positive for Klebsiella oxytoca and Streptococcus pneumoniae. Blood culture revealed no growth. Urine culture revealed no growth 0.2. Hemoglobin 12.2. Platelets 157. Sodium 140. Potassium 4.3. Bicarb 40. BUN 76. Creatinine 0.77. Objective - Vital Signs Vital signs: Vital Signs Temp 100.0 F H 09/06/24 08:00 Pulse 89 09/06/24 10:00 Resp 23 09/06/24 10:00 BP 143/70 09/06/24 03:00 Pulse Ox 93 L 09/06/24 10:00 FiO2 40 09/06/24 08:20 Intake & Output 09/05/24 09/06/24 09/06/24 18:59 06:59 18:59 Intake Total 3383.750 4964.122 169.474 Output Total 1760 1150 55 Balance 214.391 577.122 114.474 Weight 70.4 kg Intake: IV 1022 972 81 0.9 3cc/ hr a-line 36 36 3 0.9 3cc/hr cvp 36 36 3 Lactated Ringers 1,000 ml 900 900 75 @ 75 mls/hr IV .[id number] [facility] Rx#:[id number] cefTRIAXone 2 gm In 50 Sodium Chloride 0.9% 50 ml @ 100 mls/hr IVPB Q24HR [facility] Rx#:[id number] Intake, IV Titration 442.391 305.122 88.474 Amount Heparin Sod,Pork in 0.45% 250 212.923 NaCl 25,000 unit In 0.45 % NaCl 1 250ml.bag @ 11. 751 UNITS/KG/HR 10 mls/hr IV .Q24H [facility] Rx#: [id number] Norepinephrine 8 mg In 47.288 9.304 16.054 Sodium Chloride 0.9% 250 ml @ 0.03 MCG/KG/MIN 4.94 mls/hr IV .Q24H [facility] Rx#: [id number] propofoL 1,000 mg In 145.103 82.895 72.420 Empty Bag 1 bag @ 15 MCG/ KG/MIN 7.659 mls/hr IV . Q13H4M [facility] Rx#:[id number] Oral 60 Tube Feeding 360 360 Other 90 90 Output: Urine 1760 1150 55 Other: Voiding Method Indwelling Catheter Indwelling Catheter ABP, PAP, CO, CI - Last Documented Arterial Blood Pressure 121/44 - Exam GENERAL EXAM: Intubated, sedated 74-year-old female, on the ventilator, in no acute distress. HEAD: Normocephalic. EYES: Sluggish reaction of pupils, equal size. NOSE: Clear with pink turbinates. THROAT: Oral endotracheal and gastric tube secured in place. No erythema or exudates. NECK: No masses, no JVD. CHEST: No chest wall deformity. Left subclavian triple-lumen catheter in place. LUNGS: Equal air entry with few scattered rhonchi. CVS: S1 and S2 normal with no audible murmur, regular rhythm. ABDOMEN: No hepatosplenomegaly, normal bowel sounds, no guarding or rigidity. SPINE: No scoliosis or deformity SKIN: Areas of ecchymosis and bruising. CENTRAL NERVOUS SYSTEM: Sedated, tone is normal in all 4 extremities. EXTREMITIES: Right radial arterial line in place. There is no peripheral edema. Peripheral pulses are intact. - Labs CBC & Chem 7: 09/06/24 04:34 09/06/24 04:34 Labs: Abnormal Lab Results - Last 24 Hours (Table) 09/05/24 09/05/24 09/06/24 Range/Units 11:50 17:32 00:04 WBC (3.8-10.6) k/uL RBC (3.80-5.40) m/uL MCV (80.0-100.0) fL APTT (22.0-30.0) sec ABG pCO2 (35-45) mmHg ABG pO2 (83-108) mmHg ABG HCO3 (21-25) mmol/L ABG Total CO2 (19-24) mmol/L Potassium (3.5-5.1) mmol/L Chloride (98-107) mmol/L Carbon Dioxide (22-30) mmol/L BUN (7-17) mg/dL Glucose (74-99) mg/dL POC Glucose (mg/dL) 153 H 162 H 131 H (70-110) mg/dL 09/06/24 09/06/24 09/06/24 Range/Units 02:25 04:34 04:34 WBC 13.2 H (3.8-10.6) k/uL RBC 3.70 L (3.80-5.40) m/uL MCV 105.7 H (80.0-100.0) fL APTT 38.2 H (22.0-30.0) sec ABG pCO2 (35-45) mmHg ABG pO2 (83-108) mmHg ABG HCO3 (21-25) mmol/L ABG Total CO2 (19-24) mmol/L Potassium 5.3 H (3.5-5.1) mmol/L Chloride 96 L (98-107) mmol/L Carbon Dioxide 40 H (22-30) mmol/L BUN 76 H (7-17) mg/dL Glucose 137 H (74-99) mg/dL POC Glucose (mg/dL) (70-110) mg/dL 09/06/24 Range/Units 05:09 WBC (3.8-10.6) k/uL RBC (3.80-5.40) m/uL MCV (80.0-100.0) fL APTT (22.0-30.0) sec ABG pCO2 66 H (35-45) mmHg ABG pO2 79 L (83-108) mmHg ABG HCO3 44 H* (21-25) mmol/L ABG Total CO2 46 H (19-24) mmol/L Potassium (3.5-5.1) mmol/L Chloride (98-107) mmol/L Carbon Dioxide (22-30) mmol/L BUN (7-17) mg/dL Glucose (74-99) mg/dL POC Glucose (mg/dL) (70-110) mg/dL Microbiology - Last 24 Hours (Table) 09/02/24 11:36 Gram Stain - Final Sputum Sputum Culture - Final Klebsiella oxytoca Streptococcus pneumoniae Assessment and Plan Assessment: Acute on chronic hypoxic respiratory failure secondary to a COPD exacerbation, systolic CHF exacerbation, influenza A. The patient required intubation and mechanical ventilatory support on 09/02/2024 Acute influenza A Acute exacerbation of COPD Acute on chronic systolic congestive heart failure Acute Klebsiella oxytoca, Streptococcus pneumoniae pneumonia Atrial fibrillation with rapid ventricular response, cardioverted today with 200 J, currently in sinus rhythm, remains on a heparin drip History of alcohol use Acute metabolic encephalopathy secondary to above Transaminitis with coagulopathy, warfarin on hold Moderate mitral regurgitation Nonischemic cardiomyopathy Hypertension Dyslipidemia Hypothyroidism Plan: The patient was seen and evaluated Chest x-ray, ABGs, labs and medications reviewed Continue the current treatment plan Being nourished with vital HP Continue lactated Ringer's at 75 mL/h Continue bronchodilators, steroids Perform daily interruption of sedation We will continue to follow I have personally seen and examined the patient, performed the documentation and the assessment and plan as written. Number of minutes spent on the visit: 20 Dictation was produced using marshallindexation software. Please excuse any grammatical, word or spelling errors.
[2024-09-06 11:53] LABS: Glucose,Whole Blood 132 mg/dL (70-110)
--- NOTE | 2024-09-06 13:24 | P.PN ---
Subjective Progress Note Date: 09/06/24 Hospital Course: Patient is a 74-year-old female with past medical history significant for COPD, CHF, atrial fibrillation on Coumadin, and hypertension presents today for 1 week worsening of breathing as well as significant cough. She wears 2 L of oxygen at night but says that she has had to wear 2 L 24/7 for the past week. About 5 days ago she saw Dr. Lorenzo and he started her on spironolactone due to leg swelling and fluid retention. She states that the leg swelling has improved since. She has experienced COPD exacerbations like this before. Of note her granddaughter had the flu last week. Treated for management of acute on chronic hypoxic respiratory failure secondary to COPD exacerbation, influenza A, acute HFrEF exacerbation. Cardiology consulted. Started on IV Lasix, Coumadin continued, TTE ordered. Severe LV systolic dysfunction with EF 35%, severe pulmonary hypertension. Added Farxiga to her current medical regimen. Elevated LFTs, bilirubin, abdominal ultrasound was obtained and showed no acute finding, negative Underwood sign, adherent gallstone versus small polyp measuring 3 mm. Nonobstructing renal calculi on the right. 08/29 in the evening patient became progressively short of breath, started hallucinating. She was placed on BiPAP, given her history of alcohol drinking, she was started on CIWA with Ativan, transferred to ICU for close monitoring. Patient became obtunded and was intubated on 09/02. Went into A-Fib with RVR, successfully cardioverted on 09/03. Sedation holidays 09/05: Patient became tachypneic,reattempt 09/06 Pertinent Imaging: Chest x-ray reviewed personally, left pleural effusion noted, cardiomegaly. Subjective: Patient is intubated and sedated Vitals Signs Reviewed. General: [Ill-appearing, intubated, sedated Derm: [warm], [dry], multiple bruises Head: [atraumatic], [normocephalic], [symmetric] Eyes: [EOMI], [no lid lag], [anicteric sclera] Mouth: [no lip lesion], [mucus membranes moist] Cardiovascular: [S1S2 reg], [no murmur] Lungs diminished breath sounds bilaterally Abdominal: [soft], [ nontender to palpation], [no guarding], [no appreciable organomegaly] Ext: [no gross muscle atrophy], [upper extremity swelling], [no contractures] Neuro: Pupils reactive, does not follow commands Psych: [Intubated, sedated Data Reviewed Today: Pertinent Labs: CBC with leukocytosis 13.2, hemoglobin 12.2, platelet count nor mal, ABG with normal pH, pCO2 79, pCO2 66, sodium normal, potassium 5.3, bicarb 48, creatinine normal 0.77, blood glucose is controlled Assessment and Plan: Atrial fibrillation with RVR and Supratherapeutic INR Status post cardioversion 09/03. Started on amiodarone 40 mg p.o. twice daily Continue Metoprolol 50 mg PO BID. Continue heparin drip while monitoring APTT. Acute on chronic hypoxic respiratory failure multifactorial, secondary to acute influenza A, bacterial pneumonia Klebsiella oxytoca Streptococcus pneumonia, acute COPD exacerbation, acute on chronic HFrEF Severe pulmonary hypertension Acute COPD exacerbation Anxiety Acute on chronic systolic heart failure Severe pulmonary hypertension Moderate mitral regurgitation -Laisx, Aldactone, Losartan, Farxiga on hold. One-time dose Lasix 2 09/05 -decrease IV Solu-Medrol 40 mg every 12 hours. -Doxycycline switched to Rocephin 2g IV QD today. -Continue with DuoNeb Q4H scheduled and Q2N PRN. -Continue Pulmicort 1 mg INH BID and Performist 20 mcg INH BID. -Cardiology on board. Financial Economist on board -Discussed with RN, plan for sedation holidays -called family at [phone] - no response 09/05, 09/06 -Discussed with RN, patient's son visited several days ago and plan regular dressing with staff, patient's never visited Hyperkalemia: Recheck potassium ordered Constipation: Senna scheduled Acute toxic metabolic encephalopathy secondary to the above History of alcohol abuse Haldol 4 mg IV Q6H PRN agitation CIWA protocol with Ativan PRN IV thiamine 100 daily Hypertension now hypotensive requiring Levophed at 0.03 mcg/kg/min DVT prophylaxis: Heparin drip Anticipated discharge pending Clinical course Objective - Vital Signs Vital signs: Vital Signs Temp 100.2 F H 09/06/24 12:00 Pulse 84 09/06/24 13:00 Resp 20 09/06/24 13:00 BP 143/70 09/06/24 12:00 Pulse Ox 94 L 09/06/24 13:00 FiO2 40 09/06/24 12:00 Intake & Output 09/05/24 09/06/24 09/06/24 18:59 06:59 18:59 Intake Total 8879.487 1108.122 977.533 Output Total 1760 1150 625 Balance 214.391 577.122 352.533 Weight 70.4 kg Intake: IV 1022 972 617 0.9 3cc/ hr a-line 36 36 21 0.9 3cc/hr cvp 36 36 21 Lactated Ringers 1,000 ml 900 900 525 @ 75 mls/hr IV .[id number] [facility] Rx#:[id number] cefTRIAXone 2 gm In 50 50 Sodium Chloride 0.9% 50 ml @ 100 mls/hr IVPB Q24HR [facility] Rx#:[id number] Intake, IV Titration 442.391 305.122 90.533 Amount Heparin Sod,Pork in 0.45% 250 212.923 NaCl 25,000 unit In 0.45 % NaCl 1 250ml.bag @ 11. 751 UNITS/KG/HR 10 mls/hr IV .Q24H [facility] Rx#: [id number] Norepinephrine 8 mg In 47.288 9.304 18.113 Sodium Chloride 0.9% 250 ml @ 0.03 MCG/KG/MIN 4.94 mls/hr IV .Q24H [facility] Rx#: [id number] propofoL 1,000 mg In 145.103 82.895 72.420 Empty Bag 1 bag @ 15 MCG/ KG/MIN 7.659 mls/hr IV . Q13H4M [facility] Rx#:[id number] Oral 60 Tube Feeding 360 360 180 Other 90 90 90 Output: Urine 1760 1150 625 Other: Voiding Method Indwelling Catheter Indwelling Catheter ABP, PAP, CO, CI - Last Documented Arterial Blood Pressure 142/55 - Labs CBC & Chem 7: 09/06/24 04:34 09/06/24 04:34 Labs: Abnormal Lab Results - Last 24 Hours (Table) 09/05/24 09/06/24 09/06/24 Range/Units 17:32 00:04 02:25 WBC (3.8-10.6) k/uL RBC (3.80-5.40) m/uL MCV (80.0-100.0) fL APTT 38.2 H (22.0-30.0) sec ABG pCO2 (35-45) mmHg ABG pO2 (83-108) mmHg ABG HCO3 (21-25) mmol/L ABG Total CO2 (19-24) mmol/L Potassium (3.5-5.1) mmol/L Chloride (98-107) mmol/L Carbon Dioxide (22-30) mmol/L BUN (7-17) mg/dL Glucose (74-99) mg/dL POC Glucose (mg/dL) 162 H 131 H (70-110) mg/dL 09/06/24 09/06/24 09/06/24 Range/Units 04:34 04:34 05:09 WBC 13.2 H (3.8-10.6) k/uL RBC 3.70 L (3.80-5.40) m/uL MCV 105.7 H (80.0-100.0) fL APTT (22.0-30.0) sec ABG pCO2 66 H (35-45) mmHg ABG pO2 79 L (83-108) mmHg ABG HCO3 44 H* (21-25) mmol/L ABG Total CO2 46 H (19-24) mmol/L Potassium 5.3 H (3.5-5.1) mmol/L Chloride 96 L (98-107) mmol/L Carbon Dioxide 40 H (22-30) mmol/L BUN 76 H (7-17) mg/dL Glucose 137 H (74-99) mg/dL POC Glucose (mg/dL) (70-110) mg/dL 09/06/24 09/06/24 Range/Units 10:32 11:51 WBC (3.8-10.6) k/uL RBC (3.80-5.40) m/uL MCV (80.0-100.0) fL APTT 52.9 H (22.0-30.0) sec ABG pCO2 (35-45) mmHg ABG pO2 (83-108) mmHg ABG HCO3 (21-25) mmol/L ABG Total CO2 (19-24) mmol/L Potassium (3.5-5.1) mmol/L Chloride (98-107) mmol/L Carbon Dioxide (22-30) mmol/L BUN (7-17) mg/dL Glucose (74-99) mg/dL POC Glucose (mg/dL) 132 H (70-110) mg/dL Microbiology - Last 24 Hours (Table) 09/02/24 11:36 Gram Stain - Final Sputum Sputum Culture - Final Klebsiella oxytoca Streptococcus pneumoniae
--- NOTE | 2024-09-06 14:37 | P.PN ---
Subjective Progress Note Date: 09/06/24 Was seen and evaluated this morning but apparently she was transferred to the intensive care unit overnight because of change in mental status and deterioration of the respiratory status but currently she is on BiPAP. She underwent an echo which revealed cardiomyopathy with EF appeared to be in the range of 30% with evidence of severe pulmonary hypertension and she is on maximized medical treatment for cardiomyopathy except that she is not on SGLT2 inhibitors and with that and going to add Farxiga to the current medical regimen. Also follow-up with the second set of troponin. She continues to be on Lasix IV. Kidney function remains stable. August 31, 2024 The patient was seen and evaluated this morning. She is overall doing better. She was on BiPAP and now she is on nasal cannula which she has been diuresing very well with the kidney function remains stable. She is on oral anticoagula tion with Coumadin. From a cardiovascular standpoint of view, we will continue the current medical regimen including the current dose of Lasix IV and continue monitor the kidney function and electrolytes and follow-up with the patient. The physical examination is remarkable for bilateral rhonchi and bilateral lower extremities edema 09/01/2024 Patient is seen and examined at bedside this a.m. She is on BiPAP support. Patient was getting agitated for which she received some Dilaudid and currently patient is somnolent. 09/02/2024 Patient is seen and examined at bedside this a.m. Patient was obtunded and not tolerating BiPAP with increased work of breathing. For this she was intubated this morning. Labs shows hemoglobin 14.7, MCV is elevated at 112, INR is elevated at 7.2 ABG shows respiratory alkalosis with hypercapnia BUN 59, creatinine 0.6 09/03/2024 Patient seen and examined at bedside this a.m. On 09/02/2024 she was intubated because of being obtunded and because of increased work of breathing. Since intubation and with propofol, patient had stayed hypotensive. For this she has required norepinephrine. Currently she is on 0.03 mcg infusion. With the use of norepinephrine she has persisted in A-fib RVR with minimal response to beta-sudha and amiodarone. 09/04/2024 Underwent DCCV with successful cardioversion to normal sinus rhythm. Started on beta-sudha. 09/05/2024 Patient is seen and examined at bedside this a.m. She continues to be on ventilator support. Continues to be in sinus rhythm. On minimal norepinephrine. 09/06/2024 Patient is seen and examined at bedside this a.m. Patient continues to be on ventilator support. Continues to be in sinus rhythm. On minimal norepinephrine of 0.03 mics On exam Regular pulses, S1-S2 audible, no significant murmurs appreciated Intubated, ET tube in place, on ventilator support, mild crackles or rhonchi audible No significant swelling noticed in bilateral lower extremity Under sedation, detailed neuroexam was not performed ASSESSMENT: # Atrial fibrillation with RVR since 09/01/2024, 11 PM # Mixed shock with complaints of distributive and cardiogenic etiology # Ventilator-dependent respiratory failure due to Acute influenza A # Acute on chronic heart failure with reduced EF # Nonischemic cardiomyopathy with a EF of 35% # Severe pulmonary hypertension # History of paroxysmal atrial fibrillation, on Coumadin outpatient # Supratherapeutic INR, present on admission. Now resolved. # History of nonischemic cardiomyopathy # Hypertension # Hyperlipidemia # Moderate mitral regurgitation PLAN: Continue amiodarone and metoprolol 50 mg twice isha Hold [facility]. Hold diuretics for now. Prognosis is guarded Objective - Vital Signs Vital signs: Vital Signs Temp 100.2 F H 09/06/24 12:00 Pulse 84 09/06/24 14:00 Resp 20 09/06/24 14:00 BP 143/70 09/06/24 12:00 Pulse Ox 94 L 09/06/24 14:00 FiO2 40 09/06/24 12:00 Intake & Output 09/05/24 09/06/24 09/06/24 18:59 06:59 18:59 Intake Total 9065.073 2014.122 977.533 Output Total 1760 1150 625 Balance 214.391 577.122 352.533 Weight 70.4 kg Intake: IV 1022 972 617 0.9 3cc/ hr a-line 36 36 21 0.9 3cc/hr cvp 36 36 21 Lactated Ringers 1,000 ml 900 900 525 @ 75 mls/hr IV .[id number] [facility] Rx#:[id number] cefTRIAXone 2 gm In 50 50 Sodium Chloride 0.9% 50 ml @ 100 mls/hr IVPB Q24HR [facility] Rx#:[id number] Intake, IV Titration 442.391 305.122 90.533 Amount Heparin Sod,Pork in 0.45% 250 212.923 NaCl 25,000 unit In 0.45 % NaCl 1 250ml.bag @ 11. 751 UNITS/KG/HR 10 mls/hr IV .Q24H [facility] Rx#: [id number] Norepinephrine 8 mg In 47.288 9.304 18.113 Sodium Chloride 0.9% 250 ml @ 0.03 MCG/KG/MIN 4.94 mls/hr IV .Q24H [facility] Rx#: [id number] propofoL 1,000 mg In 145.103 82.895 72.420 Empty Bag 1 bag @ 15 MCG/ KG/MIN 7.659 mls/hr IV . Q13H4M [facility] Rx#:[id number] Oral 60 Tube Feeding 360 360 180 Other 90 90 90 Output: Urine 1760 1150 625 Other: Voiding Method Indwelling Catheter Indwelling Catheter Indwelling Catheter ABP, PAP, CO, CI - Last Documented Arterial Blood Pressure 139/55 - Labs CBC & Chem 7: 09/06/24 04:34 09/06/24 04:34 Labs: Abnormal Lab Results - Last 24 Hours (Table) 09/05/24 09/06/24 09/06/24 Range/Units 17:32 00:04 02:25 WBC (3.8-10.6) k/uL RBC (3.80-5.40) m/uL MCV (80.0-100.0) fL APTT 38.2 H (22.0-30.0) sec ABG pCO2 (35-45) mmHg ABG pO2 (83-108) mmHg ABG HCO3 (21-25) mmol/L ABG Total CO2 (19-24) mmol/L Potassium (3.5-5.1) mmol/L Chloride (98-107) mmol/L Carbon Dioxide (22-30) mmol/L BUN (7-17) mg/dL Glucose (74-99) mg/dL POC Glucose (mg/dL) 162 H 131 H (70-110) mg/dL 09/06/24 09/06/24 09/06/24 Range/Units 04:34 04:34 05:09 WBC 13.2 H (3.8-10.6) k/uL RBC 3.70 L (3.80-5.40) m/uL MCV 105.7 H (80.0-100.0) fL APTT (22.0-30.0) sec ABG pCO2 66 H (35-45) mmHg ABG pO2 79 L (83-108) mmHg ABG HCO3 44 H* (21-25) mmol/L ABG Total CO2 46 H (19-24) mmol/L Potassium 5.3 H (3.5-5.1) mmol/L Chloride 96 L (98-107) mmol/L Carbon Dioxide 40 H (22-30) mmol/L BUN 76 H (7-17) mg/dL Glucose 137 H (74-99) mg/dL POC Glucose (mg/dL) (70-110) mg/dL 09/06/24 09/06/24 Range/Units 10:32 11:51 WBC (3.8-10.6) k/uL RBC (3.80-5.40) m/uL MCV (80.0-100.0) fL APTT 52.9 H (22.0-30.0) sec ABG pCO2 (35-45) mmHg ABG pO2 (83-108) mmHg ABG HCO3 (21-25) mmol/L ABG Total CO2 (19-24) mmol/L Potassium (3.5-5.1) mmol/L Chloride (98-107) mmol/L Carbon Dioxide (22-30) mmol/L BUN (7-17) mg/dL Glucose (74-99) mg/dL POC Glucose (mg/dL) 132 H (70-110) mg/dL Microbiology - Last 24 Hours (Table) 09/02/24 11:36 Gram Stain - Final Sputum Sputum Culture - Final Klebsiella oxytoca Streptococcus pneumoniae
[2024-09-06 18:13] LABS: Glucose,Whole Blood 181 mg/dL (70-110)
[2024-09-06 20:52] LABS: Glucose,Whole Blood 168 mg/dL (70-110)
[2024-09-06 23:47] LABS: Glucose,Whole Blood 123 mg/dL (70-110)
[2024-09-07 04:42] LABS: Basophils % (A) 0 %; Eosinophils % (A) 0 %; HCT 42.6 % (34.0-46.0); HGB 13.7 gm/dL (11.4-16.0); Hypochromasia Slight; Lymphocytes # (A) 0.2 k/uL (1.0-4.8); Lymphocytes % (A) 1 %; MCH 34.3 pg (25.0-35.0); MCHC 32.1 g/dL (31.0-37.0); MCV 106.6 fL (80.0-100.0); Macrocytosis Moderate; Mean Platelet Volume 9.1; Monocytes # (A) 0.8 k/uL (0-1.0); Monocytes % (A) 5 %; Neutrophils # (A) 15.6 k/uL (1.3-7.7); Neutrophils % (A) 93 %; Platelet Count 175 k/uL (150-450); RBC 3.99 m/uL (3.80-5.40); RDW 14.2 % (11.5-15.5); WBC 16.8 k/uL (3.8-10.6)
[2024-09-07 05:09] LABS: Glucose,Whole Blood 107 mg/dL (70-110)
[2024-09-07 05:14] LABS: ABG Base Excess 14.8 mmol/L; ABG PCO2 64 mmHg (35-45); ABG PH 7.43 (7.35-7.45); ABG PO2 82 mmHg (83-108); ABG TCO2 44 mmol/L (19-24)
[2024-09-07 05:23] LABS: ABG HCO3 42 mmol/L (21-25); Allen Test Performed? No
[2024-09-07 05:41] LABS: Glucose,Whole Blood 104 mg/dL (70-110)
[2024-09-07 05:52] LABS: African American GFR (CKD) >90 (>60 ml/min/1.73 sqM); Anion Gap 2 mmol/L; Blood Urea Nitrogen 70 mg/dL (7-17); Calcium 8.6 mg/dL (8.4-10.2); Chloride 99 mmol/L (98-107); Glucose 100 mg/dL (74-99); Magnesium 2.1 mg/dL (1.6-2.3); Non-African American GFR(CKD) 79 (>60 ml/min/1.73 sqM); Potassium 5.8 mmol/L (3.5-5.1); Sodium 141 mmol/L (137-145)
[2024-09-07 05:58] LABS: Carbon Dioxide 40 mmol/L (22-30)
[2024-09-07] MEDS: INSULIN REGULAR 100 UNIT/ML VIAL (IV) IV ONE (06:56)
[2024-09-07] MEDS: DEXTROSE 50% SYRINGE 50 ML IVP STA (06:57)
--- NOTE | 2024-09-07 07:33 | XR ---
EXAMINATION TYPE: XR chest 1V portable DATE OF EXAM: 09/07/2024 5:25 AM COMPARISON: Chest radiograph from one day prior. CLINICAL INDICATION: Female, 74 years old with history of intubated pt; [facility] TECHNIQUE: XR chest 1V portable Frontal view of the chest. FINDINGS: Lungs/Pleura: Scattered subtle reticular and hazy opacities. No evidence of pneumothorax, focal conso lidation or pleural effusion. Pulmonary vascularity: Unremarkable. Heart/mediastinum: Cardiomediastinal silhouette is unremarkable. Atherosclerotic calcifications are seen in the aorta. Musculoskeletal: No acute osseous pathology. Other findings: None Lines/Tubes: Endotracheal tube with distal tip 3.7 cm above the charles. Nasogastric tube with its distal tip and side-port projecting under the diaphragm. Left central venous catheter with distal tip at the cavoatrial junction. IMPRESSION: 1. Stable support line and tubes. 2. Similar multifocal interstitial opacities. Correlate with serum BNP. [facility], , 09/07/2024 7:30 AM
--- NOTE | 2024-09-07 11:21 | P.PN ---
Subjective Progress Note Date: 09/07/24 This is a 74-year-old female, familiar to my service, patient is known to have history of COPD, severe, history of chronic cor pulmonale, history of nonischemic cardiomyopathy and LV dysfunction as well as history of chronic atrial fibrillation maintained on Coumadin. Patient is also known to have history of moderate mitral regurgitation. Patient is normally on oxygen at 2 L/min, she is normally on diuretics, and she was very seen about a week ago in my office with worsening swelling of her lower extremities, and patient was placed on Aldactone in addition to her Lasix. Her leg swelling improved, however patient came into the ER on 08/28/2024, came in mostly with worsening shortness of breath, cough, wheezing, apparently when she was brought in by EMS she was found to be in tripod position and she was breathing quite heavy. Patient was placed on BiPAP, that seemed to improve her pulmonary status significantly on BiPAP. In the ER, patient was noted to have positive screening for acute influenza A. Last night I was notified about this patient about her shortness of breath and being BiPAP dependent, patient is known to have history of alcohol drinking, and there was also a concern about the patient going into alcohol withdrawal. Patient required some Ativan, admitted to the ICU for close monitoring. I was asked to see her in consultation. In addition to her COPD, patient had positive screening for influenza A. Today I saw the patient in the ICU, she is still on BiPAP 12/5/40%, patient is receiving Lasix, she is also on Aldactone, patient is on Tamiflu, and she is on her usual bronchodilators and on Solu-Medrol. WBC count is 11.9 hemoglobin 12.3 INR is 3.1 electrolytes are normal renal profile is normal troponin is less than 0.012 Evaluated today on 08/31/2024, patient remains in the ICU, patient is on 4 L nasal cannula, last night she was on BiPAP 12/5/40%, patient remains on bronchodilators, Lasix, Coumadin, and she is also on doxycycline. Baseline FEV1 from my office chart is 42% at best. Clearly the patient has severe underlying COPD. Patient is now on nasal cannula, had to be on BiPAP yesterday. Chest x- ray today is suggestive of interstitial edema, underlying pneumonia is felt to be less likely but not entirely ruled out. WBC count is 11.4 hemoglobin is 14.3 INR is 3.3 electrolytes are normal bicarb is 4 0 BUN is 27 creatinine 0.66 The patient is seen today September 01, 2024 in follow-up in the intensive care unit. She is currently sitting up in bed. She is quite restless. Moving from [id number]. She was on BiPAP 12/5 and 40% FiO2. She is currently on 4 L nasal cannula. Her O2 saturation did drop into the 70s when she had her oxygen off. She did require Ativan throughout the night. Recent arterial blood gases revealed a PH of 69, pCO2 79 and a pH of 7.38. She is continued on DuoNeb inhalations, Symbicort, Solu-Medrol. Empiric antibiotics in the form of doxycycline. She remains on IV diuretics. Remains on the CIID protocol. Anticoagulated with warfarin. White count 11.4. Hemoglobin 14.4. Platelets 169. INR 4.8. Sodium 150. Potassium 3.9. Bicarb 45. BUN 39. Creatinine 0.67. Chest x-ray reveals similar moderate interstitial opacities. The patient is seen today September 02, 2024 in follow-up in the intensive care unit. Throughout the night and early this morning she became more obtunded. She was maintained on BiPAP 12/5 and 50% FiO2. PaO2 of 90, pCO2 of 97 and a pH of 7.34. She subsequently had undergone intubation and mechanical ventilatory support. She is currently on assist-control mode at a rate of 20, tidal volume 350, FiO2 100% and a PEEP of 5. Follow-up blood gases revealed a PaO2 of 332, pCO2 75 and a pH of 7.43. The FiO2 was decreased to 40%. White count 11.4. Hemoglobin 14.7. Platelets 173. Sodium 150. Potassium 4.2. Bicarb 47. BUN 59. Creatinine 0.67. Glucose 378. AST 50. ALT 58. Amiodarone at 0.5 mg/h. Her INR was 7.2. She did receive vitamin K. She is requiring norepinephrine at 0.03 mcg/kg/min. Propofol at 15 mcg/kg/min. Continued on DuoNeb inhalations, Symbicort, doxycycline. Chest x-ray shows evidence of COPD with superimposed pulmonary vascular congestion. Ongoing patchy left basilar and retrocardiac opacity. The patient is seen today September 03, 2024 in follow-up in the intensive care unit. She remains intubated on mechanical ventilator. Currently on assist- control mode with a rate of 20, tidal volume 350, FiO2 40% and a PEEP of 5. Morning blood gases revealed a PaO2 of 83, pCO2 of 80 and a pH of 7.38. She is still having issues with atrial fibrillation with rapid ventricular response. She is on a amiodarone drip at 1 mg/min. Remains on norepinephrine at 3.4 mcg/min. D5W at 125 mL/h. Propofol at 20 mcg/kg/min. Insulin drip at 6 units/h. She is being nourished with vital HP at 30 mL/h with a goal of 38. Chest x-ray reveals diffuse interstitial changes on a background of COPD. Small left pleural effusion. Retrocardiac consolidation/atelectasis. Blood culture reveals no growth. Sputum culture reveals no growth to date. 14.5. Platelets 222. INR 1.6. Sodium 136. Potassium 3.8. Bicarb 45. BUN 70. Creatinine 0. 91. Glucose 213. She remains on DuoNeb and elations, Pulmicort and Perforomist inhalations, IV Solu-Medrol. Remains on warfarin. Remains on Protonix. The patient is seen today September 04, 2024 in follow-up in the intensive care unit. She remains intubated on the mechanical ventilator. Currently on assist- control mode with a rate of 20, tidal volume 350, FiO2 40% and a PEEP of 5. Morning blood gases revealed a PaO2 of 76, pCO2 77 and a pH of 7.36. She remains in atrial fibrillation with a rapid ventricular response and an undergone cardioversion this a.m. with 200 J and is currently back in sinus rhythm. She remains on amiodarone drip at 0.5 mg/min. Heparin drip per weight- based protocol. Sedated with propofol at 30 mcg/kg/min. Norepinephrine at 1 mcg/min. Lactated Ringer's at 75 mL/h. She is being nourished with vital HP at 38 mL/h which is goal. She is continued on DuoNeb and elations, Pulmicort and Perforomist inhalations, IV Solu-Medrol. Protonix for GI prophylaxis. Remains on doxycycline. Sputum culture now revealing Streptococcus pneumoniae. White count 13.8. Hemoglobin 13.9. Platelets 157. INR 1.3. Sodium 132. Potassium 4.9. Bicarb 35. BUN 89. Creatinine 0.95. Glucose 178. The patient is seen today September 05, 2024 in follow-up in the intensive care unit. She remains intubated on the mechanical ventilator. Currently on assist- control mode with a rate of 20, tidal valve 350, FiO2 40% and a PEEP of 5. Morning blood gases revealed a PaO2 of 87, pCO2 of 73 and a pH of 7.38. Chest x-ray reveals cardiomegaly with small left pleural effusion. She is sedated on propofol at 30 mcg/kg/min. Remains on norepinephrine at 2 mcg/min. Continued on a heparin drip per weight-based protocol. Lactated Ringer's at 75 mL/h. She is being nourished with vital HP at 30 mL/h which is goal. She is continued on ceftriaxone. Sputum culture was positive for Klebsiella oxytoca and Streptococcus pneumoniae. Blood culture revealed no growth. Urine culture revealed no growth. White count 16.0. Hemoglobin 12.8. Platelets 147. Sodium 136. Potassium 4.7. Bicarb 40. BUN 84. Creatinine 0.94. Glucose 176. She is maintained on DuoNeb inhalations, Pulmicort and Perforomist inhalations, Solu-Medrol. Protonix for GI prophylaxis. The patient is seen today September 06, 2019 tidal valve 350, FiO2 40% and a PEEP of 5. Morning blood gases revealed a PaO2 of 79, pCO2 of 66 and a pH of 7.43. She is sedated with propofol 25 mcg/kg/min. Currently on norepinephrine at 2.1 mcg/min. Lactated Ringer's at 75 mL/h. Heparin drip per weight-based protocol. She is being nourished with vital HP 30 mL/h which is goal. She is currently in sinus rhythm. Yesterday's daily interruption of sedation the patient became quite hypertensive and tachycardic. Plan for DIS again today. Performance improved Pulmicort inhalations. IV Solu-Medrol. Continued on ceftriaxone. Sputum culture was positive for Klebsiella oxytoca and Streptococcus pneumoniae. Blood culture revealed no growth. Urine culture revealed no growth 0.2. Hemoglobin 12.2. Platelets 157. Sodium 140. Potassium 4.3. Bicarb 40. BUN 76. Creatinine 0.77. The patient is seen today September 07, 2024 in follow-up in the intensive care unit. She remains intubated on the mechanical ventilator and assist-control mode at a rate of 20, tidal valve 350, FiO2 40% and a PEEP of 5. Morning blood gases revealed a PaO2 of 82, pCO2 of 64 and a pH of 7.43. She is on a heparin drip per weight-based protocol. Lactated Ringer's at 75 mL/h. Vital HP at 30 mL/h which is goal. Her propofol has been off for over 24 hours. She remains unresponsive. Chest x-ray reveals similar multifocal interstitial opacities. Endotracheal nasogastric tubes in good position. Left triple-lumen catheter in position. Sputum culture was positive for Klebsiella oxytoca and Streptococcus pneumoniae. Blood and urine cultures revealed no growth. White count 16.8. Hemoglobin 13.7. Platelets 175. Sodium 141. Potassium 5.8. Bicarb 40. BUN 70. Creatinine 0.76. Glucose 100. He is continued on DuoNeb inhalations, Pulmicort and Perforomist inhalations, Solu-Medrol. Protonix for GI prophy laxis. She remains on Levemir and NovoLog sliding scale. She remains on ceftriaxone. She remains in a positive balance of 1.3 L. Objective - Vital Signs Vital signs: Vital Signs Temp 99.0 F 09/07/24 08:00 Pulse 80 09/07/24 10:00 Resp 20 09/07/24 10:00 BP 143/70 09/07/24 06:00 Pulse Ox 94 L 09/07/24 10:00 FiO2 40 09/07/24 08:06 Intake & Output 09/06/24 09/07/24 09/07/24 18:59 06:59 18:59 Intake Total 6555.480 4642.4 479 Output Total 1110 820 260 Balance 452.533 846.4 219 Weight 73.6 kg Intake: IV 1022 972 299 0.9 3cc/ hr a-line 36 36 12 0.9 3cc/hr cvp 36 36 12 Lactated Ringers 1,000 ml 900 900 225 @ 75 mls/hr IV .[id number] [facility] Rx#:[id number] cefTRIAXone 2 gm In 50 50 Sodium Chloride 0.9% 50 ml @ 100 mls/hr IVPB Q24HR [facility] Rx#:[id number] Intake, IV Titration 90.533 244.4 Amount Heparin Sod,Pork in 0.45% 244.4 NaCl 25,000 unit In 0.45 % NaCl 1 250ml.bag @ 11. 751 UNITS/KG/HR 10 mls/hr IV .Q24H [facility] Rx#: [id number] Norepinephrine 8 mg In 18.113 Sodium Chloride 0.9% 250 ml @ 0.03 MCG/KG/MIN 4.94 mls/hr IV .Q24H [facility] Rx#: [id number] propofoL 1,000 mg In 72.420 Empty Bag 1 bag @ 15 MCG/ KG/MIN 7.659 mls/hr IV . Q13H4M [facility] Rx#:[id number] Tube Feeding 330 360 120 Other 120 90 60 Output: Urine 1110 820 260 Other: Voiding Method Indwelling Catheter Indwelling Catheter # Voids 100 ABP, PAP, CO, CI - Last Documented Arterial Blood Pressure 139/46 - Exam GENERAL EXAM: Intubated, unresponsive, off sedation, 74-year-old female, on the ventilator, in no acute distress. HEAD: Normocephalic. EYES: Sluggish reaction of pupils, equal size. NOSE: Clear with pink turbinates. THROAT: Oral endotracheal and gastric tube secured in place. No erythema or exudates. NECK: No masses, no JVD. CHEST: No chest wall deformity. Left subclavian triple-lumen catheter in place. LUNGS: Equal air entry with few scattered rhonchi. CVS: S1 and S2 normal with no audible murmur, regular rhythm. ABDOMEN: No hepatosplenomegaly, normal bowel sounds, no guarding or rigidity. SPINE: No scoliosis or deformity SKIN: Areas of ecchymosis and bruising. CENTRAL NERVOUS SYSTEM: Sedated, tone is normal in all 4 extremities. EXTREMITIES: Right radial arterial line in place. There is no peripheral edema. Peripheral pulses are intact. - Labs CBC & Chem 7: 09/07/24 04:28 09/07/24 04:28 Labs: Abnormal Lab Results - Last 24 Hours (Table) 09/06/24 09/06/24 09/06/24 Range/Units 10:32 11:51 18:12 WBC (3.8-10.6) k/uL MCV (80.0-100.0) fL Neutrophils # (1.3-7.7) k/uL Lymphocytes # (1.0-4.8) k/uL APTT 52.9 H (22.0-30.0) sec ABG pCO2 (35-45) mmHg ABG pO2 (83-108) mmHg ABG HCO3 (21-25) mmol/L ABG Total CO2 (19-24) mmol/L Potassium 5.8 H (3.5-5.1) mmol/L Carbon Dioxide (22-30) mmol/L BUN (7-17) mg/dL Glucose (74-99) mg/dL POC Glucose (mg/dL) 132 H (70-110) mg/dL 09/06/24 09/06/24 09/06/24 Range/Units 18:12 20:51 23:46 WBC (3.8-10.6) k/uL MCV (80.0-100.0) fL Neutrophils # (1.3-7.7) k/uL Lymphocytes # (1.0-4.8) k/uL APTT (22.0-30.0) sec ABG pCO2 (35-45) mmHg ABG pO2 (83-108) mmHg ABG HCO3 (21-25) mmol/L ABG Total CO2 (19-24) mmol/L Potassium (3.5-5.1) mmol/L Carbon Dioxide (22-30) mmol/L BUN (7-17) mg/dL Glucose (74-99) mg/dL POC Glucose (mg/dL) 181 H 168 H 123 H (70-110) mg/dL 09/07/24 09/07/24 09/07/24 Range/Units 04:28 04:28 04:28 WBC 16.8 H (3.8-10.6) k/uL MCV 106.6 H (80.0-100.0) fL Neutrophils # 15.6 H (1.3-7.7) k/uL Lymphocytes # 0.2 L (1.0-4.8) k/uL APTT 49.9 H (22.0-30.0) sec ABG pCO2 (35-45) mmHg ABG pO2 (83-108) mmHg ABG HCO3 (21-25) mmol/L ABG Total CO2 (19-24) mmol/L Potassium 5.8 H (3.5-5.1) mmol/L Carbon Dioxide 40 H (22-30) mmol/L BUN 70 H (7-17) mg/dL Glucose 100 H (74-99) mg/dL POC Glucose (mg/dL) (70-110) mg/dL 09/07/24 Range/Units 05:06 WBC (3.8-10.6) k/uL MCV (80.0-100.0) fL Neutrophils # (1.3-7.7) k/uL Lymphocytes # (1.0-4.8) k/uL APTT (22.0-30.0) sec ABG pCO2 64 H (35-45) mmHg ABG pO2 82 L (83-108) mmHg ABG HCO3 42 H* (21-25) mmol/L ABG Total CO2 44 H (19-24) mmol/L Potassium (3.5-5.1) mmol/L Carbon Dioxide (22-30) mmol/L BUN (7-17) mg/dL Glucose (74-99) mg/dL POC Glucose (mg/dL) (70-110) mg/dL Assessment and Plan Assessment: Acute on chronic hypoxic respiratory failure secondary to a COPD exacerbation, systolic CHF exacerbation, influenza A. The patient required intubation and mechanical ventilatory support on 09/02/2024 Acute influenza A Acute exacerbation of COPD Acute on chronic systolic congestive heart failure Acute Klebsiella oxytoca, Streptococcus pneumoniae pneumonia Atrial fibrillation with rapid ventricular response, cardioverted today with 200 J, currently in sinus rhythm, remains on a heparin drip History of alcohol use Acute metabolic encephalopathy secondary to above Transaminitis with coagulopathy, warfarin on hold Moderate mitral regurgitation Nonischemic cardiomyopathy Hypertension Dyslipidemia Hypothyroidism Plan: The patient was seen and evaluated Chest x-ray, ABGs, labs and medications reviewed Remains in a positive balance, Lasix 40 mg IVP x 1 Remains unresponsive off sedation for greater than [address] scan of the brain without contrast Continue vital HP for nutritional support Continue bronchodilators, steroids Remains on a heparin drip Remains in sinus rhythm We will continue to follow I have personally seen and examined the patient, performed the documentation and the assessment and plan as written. Number of minutes spent on the visit: 20 Dictation was produced using [employer] dictation software. Please excuse any grammatical, word or spelling errors.
[2024-09-07 11:42] LABS: Glucose,Whole Blood 125 mg/dL (70-110)
[2024-09-07] MEDS: FUROSEMIDE 10 MG/ML 4 ML VIAL IV STA (11:59)
--- NOTE | 2024-09-07 13:58 | P.PN ---
Subjective Progress Note Date: 09/07/24 Hospital Course: Patient is a 74-year-old female with past medical history significant for COPD, CHF, atrial fibrillation on Coumadin, and hypertension presents today for 1 week worsening of breathing as well as significant cough. She wears 2 L of oxygen at night but says that she has had to wear 2 L 24/7 for the past week. About 5 days ago she saw Dr. Lorenzo and he started her on spironolactone due to leg swelling and fluid retention. She states that the leg swelling has improved since. She has experienced COPD exacerbations like this before. Of note her granddaughter had the flu last week. Treated for management of acute on chronic hypoxic respiratory failure secondary to COPD exacerbation, influenza A, acute HFrEF exacerbation. Cardiology consulted. Started on IV Lasix, Coumadin continued, TTE ordered. Severe LV systolic dysfunction with EF 35%, severe pulmonary hypertension. Added Farxiga to her current medical regimen. Elevated LFTs, bilirubin, abdominal ultrasound was obtained and showed no acute finding, negative Underwood sign, adherent gallstone versus small polyp measuring 3 mm. Nonobstructing renal calculi on the right. 08/29 in the evening patient became progressively short of breath, started hallucinating. She was placed on BiPAP, given her history of alcohol drinking, she was started on CIWA with Ativan, transferred to ICU for close monitoring. Patient became obtunded and was intubated on 09/02. Went into A-Fib with RVR, successfully cardioverted on 09/03. Sedation holidays 09/05: Patient became tachypneic,reattempt 09/06-patient is off sedation since 09/06 10:30, AM on 09/07 patient is nonresponsive, no withdrawal to pain, verbal stimuli, horizontal nystagmus noted, pupils are reactive. Patient required 2 doses of Dilaudid 0.[address] brain ordered. No pressor support required today Subjective: Patient is intubated and sedated Vitals Signs Reviewed. General: [Ill-appearing, intubated, Derm: [warm], [dry], multiple bruises Head: [atraumatic], [normocephalic], [symmetric] Eyes: [EOMI], [no lid lag], [anicteric sclera] Mouth: [no lip lesion], [mucus membranes moist] Cardiovascular: [S1S2 reg], [no murmur] Lungs diminished breath sounds bilaterally Abdominal: [soft], [ nontender to palpation], [no guarding], [no appreciable organomegaly] Ext: [no gross muscle atrophy], [upper extremity swelling], [no contractures] Neuro: Pupils reactive, does not follow commands, no reaction to painful or verbal stimuli Psych: [Intubated, Data Reviewed Today: Pertinent Labs: CBC with leukocytosis leukocytosis 16.8, hemoglobin normal stable, ABG with pH of 7.43, pCO2 of 64, pO2 82, sodium 141, potassium 5.8, creatinine 0.76, blood glucose is controlled, magnesium 2.1. Chest x-ray: Multifocal interstitial opacities Assessment and Plan: Atrial fibrillation with RVR and Supratherapeutic INR Status post cardioversion 09/03. Started on amiodarone 40 mg p.o. twice daily Continue Metoprolol 50 mg PO BID. Continue heparin drip while monitoring APTT. Acute on chronic hypoxic respiratory failure multifactorial, secondary to acute influenza A, bacterial pneumonia Klebsiella oxytoca Streptococcus pneumonia, acute COPD exacerbation, acute on chronic HFrEF Severe pulmonary hypertension Acute COPD exacerbation Anxiety Acute on chronic systolic heart failure Severe pulmonary hypertension Moderate mitral regurgitation -Laisx, Aldactone, Losartan, Farxiga on hold. One-time dose Lasix 09/05 - IV Solu-Medrol 40 mg every 12 hours. -Doxycycline switched to Rocephin 2g IV QD . -Continue with DuoNeb Q4H scheduled and Q2N PRN. -Continue Pulmicort 1 mg INH BID and Performist 20 mcg INH BID. -Cardiology on board. [employer] on board -Discussed with RN, counter former -CT brain for unresponsiveness -called family at [phone] - no response 09/05, 09/06 Updated on current condition, treatment, plan. Patient's states that he would like to see how she does with sedation holidays. I explained that there is high likelihood that she will not be able to come off of the vent, explained severity of her condition. He demonstrated understanding but wanted to give her couple more days to monitor progress. -Discussed with RN, patient's son visited several days ago and plan regular dressing with staff, patient's never visited Hyperkalemia: Recheck potassium ordered, s/p insulin+D50 Constipation: Senna scheduled Acute toxic metabolic encephalopathy secondary to the above History of alcohol abuse Haldol 4 mg IV Q6H PRN agitation CIWA protocol with Ativan PRN IV thiamine 100 daily Hypertension not hypotensive anymore, Levophed stopped 09/06 814 DVT prophylaxis: Heparin drip Anticipated discharge pending Clinical course Objective - Vital Signs Vital signs: Vital Signs Temp 99.0 F 09/07/24 08:00 Pulse 80 09/07/24 10:00 Resp 20 09/07/24 10:00 BP 143/70 09/07/24 06:00 Pulse Ox 94 L 09/07/24 10:00 FiO2 40 09/07/24 08:06 Intake & Output 09/06/24 09/07/24 09/07/24 18:59 06:59 18:59 Intake Total 2317.599 8820.4 479 Output Total 1110 820 260 Balance 452.533 846.4 219 Weight 73.6 kg Intake: IV 1022 972 299 0.9 3cc/ hr a-line 36 36 12 0.9 3cc/hr cvp 36 36 12 Lactated Ringers 1,000 ml 900 900 225 @ 75 mls/hr IV .[id number] [facility] Rx#:[id number] cefTRIAXone 2 gm In 50 50 Sodium Chloride 0.9% 50 ml @ 100 mls/hr IVPB Q24HR [facility] Rx#:[id number] Intake, IV Titration 90.533 244.4 Amount Heparin Sod,Pork in 0.45% 244.4 NaCl 25,000 unit In 0.45 % NaCl 1 250ml.bag @ 11. 751 UNITS/KG/HR 10 mls/hr IV .Q24H [facility] Rx#: [id number] Norepinephrine 8 mg In 18.113 Sodium Chloride 0.9% 250 ml @ 0.03 MCG/KG/MIN 4.94 mls/hr IV .Q24H [facility] Rx#: [id number] propofoL 1,000 mg In 72.420 Empty Bag 1 bag @ 15 MCG/ KG/MIN 7.659 mls/hr IV . Q13H4M [facility] Rx#:[id number] Tube Feeding 330 360 120 Other 120 90 60 Output: Urine 1110 820 260 Other: Voiding Method Indwelling Catheter Indwelling Catheter # Voids 100 ABP, PAP, CO, CI - Last Documented Arterial Blood Pressure 139/46 - Labs CBC & Chem 7: 09/07/24 04:28 09/07/24 10:12 Labs: Abnormal Lab Results - Last 24 Hours (Table) 09/06/24 09/06/24 09/06/24 Range/Units 10:32 11:51 18:12 WBC (3.8-10.6) k/uL MCV (80.0-100.0) fL Neutrophils # (1.3-7.7) k/uL Lymphocytes # (1.0-4.8) k/uL APTT 52.9 H (22.0-30.0) sec ABG pCO2 (35-45) mmHg ABG pO2 (83-108) mmHg ABG HCO3 (21-25) mmol/L ABG Total CO2 (19-24) mmol/L Potassium 5.8 H (3.5-5.1) mmol/L Carbon Dioxide (22-30) mmol/L BUN (7-17) mg/dL Glucose (74-99) mg/dL POC Glucose (mg/dL) 132 H (70-110) mg/dL 09/06/24 09/06/24 09/06/24 Range/Units 18:12 20:51 23:46 WBC (3.8-10.6) k/uL MCV (80.0-100.0) fL Neutrophils # (1.3-7.7) k/uL Lymphocytes # (1.0-4.8) k/uL APTT (22.0-30.0) sec ABG pCO2 (35-45) mmHg ABG pO2 (83-108) mmHg ABG HCO3 (21-25) mmol/L ABG Total CO2 (19-24) mmol/L Potassium (3.5-5.1) mmol/L Carbon Dioxide (22-30) mmol/L BUN (7-17) mg/dL Glucose (74-99) mg/dL POC Glucose (mg/dL) 181 H 168 H 123 H (70-110) mg/dL 09/07/24 09/07/24 09/07/24 Range/Units 04:28 04:28 04:28 WBC 16.8 H (3.8-10.6) k/uL MCV 106.6 H (80.0-100.0) fL Neutrophils # 15.6 H (1.3-7.7) k/uL Lymphocytes # 0.2 L (1.0-4.8) k/uL APTT 49.9 H (22.0-30.0) sec ABG pCO2 (35-45) mmHg ABG pO2 (83-108) mmHg ABG HCO3 (21-25) mmol/L ABG Total CO2 (19-24) mmol/L Potassium 5.8 H (3.5-5.1) mmol/L Carbon Dioxide 40 H (22-30) mmol/L BUN 70 H (7-17) mg/dL Glucose 100 H (74-99) mg/dL POC Glucose (mg/dL) (70-110) mg/dL 09/07/24 Range/Units 05:06 WBC (3.8-10.6) k/uL MCV (80.0-100.0) fL Neutrophils # (1.3-7.7) k/uL Lymphocytes # (1.0-4.8) k/uL APTT (22.0-30.0) sec ABG pCO2 64 H (35-45) mmHg ABG pO2 82 L (83-108) mmHg ABG HCO3 42 H* (21-25) mmol/L ABG Total CO2 44 H (19-24) mmol/L Potassium (3.5-5.1) mmol/L Carbon Dioxide (22-30) mmol/L BUN (7-17) mg/dL Glucose (74-99) mg/dL POC Glucose (mg/dL) (70-110) mg/dL
--- NOTE | 2024-09-07 16:00 | P.PN ---
Subjective Progress Note Date: 09/07/24 Was seen and evaluated this morning but apparently she was transferred to the intensive care unit overnight because of change in mental status and deterioration of the respiratory status but currently she is on BiPAP. She underwent an echo which revealed cardiomyopathy with EF appeared to be in the range of 30% with evidence of severe pulmonary hypertension and she is on maximized medical treatment for cardiomyopathy except that she is not on SGLT2 inhibitors and with that and going to add Farxiga to the current medical regimen. Also follow-up with the second set of troponin. She continues to be on Lasix IV. Kidney function remains stable. August 31, 2024 The patient was seen and evaluated this morning. She is overall doing better. She was on BiPAP and now she is on nasal cannula which she has been diuresing very well with the kidney function remains stable. She is on oral anticoagula tion with Coumadin. From a cardiovascular standpoint of view, we will continue the current medical regimen including the current dose of Lasix IV and continue monitor the kidney function and electrolytes and follow-up with the patient. The physical examination is remarkable for bilateral rhonchi and bilateral lower extremities edema 09/01/2024 Patient is seen and examined at bedside this a.m. She is on BiPAP support. Patient was getting agitated for which she received some Dilaudid and currently patient is somnolent. 09/02/2024 Patient is seen and examined at bedside this a.m. Patient was obtunded and not tolerating BiPAP with increased work of breathing. For this she was intubated this morning. Labs shows hemoglobin 14.7, MCV is elevated at 112, INR is elevated at 7.2 ABG shows respiratory alkalosis with hypercapnia BUN 59, creatinine 0.6 09/03/2024 Patient seen and examined at bedside this a.m. On 09/02/2024 she was intubated because of being obtunded and because of increased work of breathing. Since intubation and with propofol, patient had stayed hypotensive. For this she has required norepinephrine. Currently she is on 0.03 mcg infusion. With the use of norepinephrine she has persisted in A-fib RVR with minimal response to beta-sudha and amiodarone. 09/04/2024 Underwent DCCV with successful cardioversion to normal sinus rhythm. Started on beta-sudha. 09/05/2024 Patient is seen and examined at bedside this a.m. She continues to be on ventilator support. Continues to be in sinus rhythm. On minimal norepinephrine. 09/06/2024 Patient is seen and examined at bedside this a.m. Patient continues to be on ventilator support. Continues to be in sinus rhythm. On minimal norepinephrine of 0.03 mics On exam Regular pulses, S1-S2 audible, no significant murmurs appreciated Intubated, ET tube in place, on ventilator support, mild crackles or rhonchi audible No significant swelling noticed in bilateral lower extremity Under sedation, detailed neuroexam was not performed ASSESSMENT: # Atrial fibrillation with RVR since 09/01/2024, 11 PM # Mixed shock with complaints of distributive and cardiogenic etiology # Ventilator-dependent respiratory failure due to Acute influenza A # Acute on chronic heart failure with reduced EF # Nonischemic cardiomyopathy with a EF of 35% # Severe pulmonary hypertension # History of paroxysmal atrial fibrillation, on Coumadin outpatient # Supratherapeutic INR, present on admission. Now resolved. # History of nonischemic cardiomyopathy # Hypertension # Hyperlipidemia # Moderate mitral regurgitation PLAN: Continue amiodarone and metoprolol 50 mg twice daily d/c heparin, start eliquis. She was on warfarin at home. Will try to do Eliquis on discharge. Request social work to see if it would be covered or not. Hold Farxiga. Hold diuretics for now. Prognosis is guarded Objective - Vital Signs Vital signs: Vital Signs Temp 99.0 F 09/07/24 12:00 Pulse 77 09/07/24 15:54 Resp 24 09/07/24 14:00 BP 143/70 09/07/24 11:00 Pulse Ox 93 L 09/07/24 14:00 FiO2 40 09/07/24 15:54 Intake & Output 09/06/24 09/07/24 09/07/24 18:59 06:59 18:59 Intake Total 8349.988 9139.4 816 Output Total 1110 820 380 Balance 452.533 846.4 436 Weight 73.6 kg Intake: IV 1022 972 546 0.9 3cc/ hr a-line 36 36 18 0.9 3cc/hr cvp 36 36 18 0.9 at KVO 10 Lactated Ringers 1,000 ml 900 900 450 @ 75 mls/hr IV .[id number] [facility] Rx#:[id number] cefTRIAXone 2 gm In 50 50 Sodium Chloride 0.9% 50 ml @ 100 mls/hr IVPB Q24HR [facility] Rx#:[id number] Intake, IV Titration 90.533 244.4 Amount Heparin Sod,Pork in 0.45% 244.4 NaCl 25,000 unit In 0.45 % NaCl 1 250ml.bag @ 11. 751 UNITS/KG/HR 10 mls/hr IV .Q24H [facility] Rx#: [id number] Norepinephrine 8 mg In 18.113 Sodium Chloride 0.9% 250 ml @ 0.03 MCG/KG/MIN 4.94 mls/hr IV .Q24H [facility] Rx#: [id number] propofoL 1,000 mg In 72.420 Empty Bag 1 bag @ 15 MCG/ KG/MIN 7.659 mls/hr IV . Q13H4M [facility] Rx#:[id number] Tube Feeding 330 360 180 Other 120 90 90 Output: Urine 1110 820 380 Other: Voiding Method Indwelling Catheter Indwelling Catheter Indwelling Catheter # Voids 100 ABP, PAP, CO, CI - Last Documented Arterial Blood Pressure 144/53 - Labs CBC & Chem 7: 09/07/24 04:28 09/07/24 10:12 Labs: Abnormal Lab Results - Last 24 Hours (Table) 09/06/24 09/06/24 09/06/24 Range/Units 18:12 18:12 20:51 WBC (3.8-10.6) k/uL MCV (80.0-100.0) fL Neutrophils # (1.3-7.7) k/uL Lymphocytes # (1.0-4.8) k/uL APTT (22.0-30.0) sec ABG pCO2 (35-45) mmHg ABG pO2 (83-108) mmHg ABG HCO3 (21-25) mmol/L ABG Total CO2 (19-24) mmol/L Potassium 5.8 H (3.5-5.1) mmol/L Carbon Dioxide (22-30) mmol/L BUN (7-17) mg/dL Glucose (74-99) mg/dL POC Glucose (mg/dL) 181 H 168 H (70-110) mg/dL 02/15/25 02/16/25 02/16/25 Range/Units 23:46 04:28 04:28 WBC 16.8 H (3.8-10.6) k/uL MCV 106.6 H (80.0-100.0) fL Neutrophils # 15.6 H (1.3-7.7) k/uL Lymphocytes # 0.2 L (1.0-4.8) k/uL APTT (22.0-30.0) sec ABG pCO2 (35-45) mmHg ABG pO2 (83-108) mmHg ABG HCO3 (21-25) mmol/L ABG Total CO2 (19-24) mmol/L Potassium 5.8 H (3.5-5.1) mmol/L Carbon Dioxide 40 H (22-30) mmol/L BUN 70 H (7-17) mg/dL Glucose 100 H (74-99) mg/dL POC Glucose (mg/dL) 123 H (70-110) mg/dL 09/07/24 09/07/24 09/07/24 Range/Units 04:28 05:06 10:12 WBC (3.8-10.6) k/uL MCV (80.0-100.0) fL Neutrophils # (1.3-7.7) k/uL Lymphocytes # (1.0-4.8) k/uL APTT 49.9 H (22.0-30.0) sec ABG pCO2 64 H (35-45) mmHg ABG pO2 82 L (83-108) mmHg ABG HCO3 42 H* (21-25) mmol/L ABG Total CO2 44 H (19-24) mmol/L Potassium 5.7 H (3.5-5.1) mmol/L Carbon Dioxide (22-30) mmol/L BUN (7-17) mg/dL Glucose (74-99) mg/dL POC Glucose (mg/dL) (70-110) mg/dL 09/07/24 Range/Units 11:40 WBC (3.8-10.6) k/uL MCV (80.0-100.0) fL Neutrophils # (1.3-7.7) k/uL Lymphocytes # (1.0-4.8) k/uL APTT (22.0-30.0) sec ABG pCO2 (35-45) mmHg ABG pO2 (83-108) mmHg ABG HCO3 (21-25) mmol/L ABG Total CO2 (19-24) mmol/L Potassium (3.5-5.1) mmol/L Carbon Dioxide (22-30) mmol/L BUN (7-17) mg/dL Glucose (74-99) mg/dL POC Glucose (mg/dL) 125 H (70-110) mg/dL
[2024-09-07 17:23] LABS: Glucose,Whole Blood 183 mg/dL (70-110)
[2024-09-07] MEDS: APIXABAN 5 MG TAB PO SCH (20:34)
[2024-09-07 23:18] LABS: Glucose,Whole Blood 140 mg/dL (70-110)
--- NOTE | 2024-09-07 23:23 | CT ---
EXAM: CT Head Without Intravenous Contrast CLINICAL HISTORY: ITS.REASON CT Reason: Neuro deficit TECHNIQUE: Axial computed tomography images of the head/brain without intravenous contrast. CTDI is 49.2 mGy and DLP is 1080.4 mGy-cm. This CT exam was performed using one or more of the following dose reduction techniques: automated exposure control, adjustment of the mA and/or kV according to patient size, and/or use of iterative reconstruction technique. COMPARISON: No relevant prior studies available. FINDINGS: Brain: Unremarkable. No hemorrhage. Mild nonspecific white matter changes. No edema. Ventricles: Unremarkable. No ventriculomegaly. Bones/joints: Unremarkable. No acute fracture. Soft tissues: Unremarkable. Sinuses: Chronic ethmoid sinusitis. No acute sinusitis. Mastoid air cells: There is a small moderate fluid in the mastoid air cells. No mastoid effusion. IMPRESSION: No evidence of acute intracranial pathology.
[2024-09-08 05:12] LABS: Basophils % (A) 0 %; Eosinophils % (A) 0 %; HCT 35.7 % (34.0-46.0); HGB 12.3 gm/dL (11.4-16.0); Lymphocytes # (A) 0.2 k/uL (1.0-4.8); Lymphocytes % (A) 1 %; MCH 36.2 pg (25.0-35.0); MCHC 34.5 g/dL (31.0-37.0); MCV 105.1 fL (80.0-100.0); Macrocytosis Moderate; Mean Platelet Volume 9.9; Monocytes # (A) 0.6 k/uL (0-1.0); Monocytes % (A) 4 %; Neutrophils # (A) 16.1 k/uL (1.3-7.7); Neutrophils % (A) 95 %; Platelet Count 149 k/uL (150-450); RDW 14.3 % (11.5-15.5)
[2024-09-08 05:28] LABS: Glucose,Whole Blood 116 mg/dL (70-110)
[2024-09-08 05:33] LABS: ABG Base Excess 16.6 mmol/L; ABG Oxygen Saturation 95.1 % (94-97); ABG PCO2 68 mmHg (35-45); ABG PH 7.42 (7.35-7.45); ABG PO2 78 mmHg (83-108); ABG TCO2 47 mmol/L (19-24)
[2024-09-08 06:04] LABS: ABG HCO3 45 mmol/L (21-25); Allen Test Performed? No
[2024-09-08 06:10] LABS: African American GFR (CKD) 77 (>60 ml/min/1.73 sqM); Blood Urea Nitrogen 68 mg/dL (7-17); Calcium 8.6 mg/dL (8.4-10.2); Chloride 96 mmol/L (98-107); Glucose 120 mg/dL (74-99); Non-African American GFR(CKD) 67 (>60 ml/min/1.73 sqM); Potassium 5.4 mmol/L (3.5-5.1); Sodium 139 mmol/L (137-145)
[2024-09-08 06:16] LABS: Anion Gap 1 mmol/L
[2024-09-08 06:23] LABS: Carbon Dioxide 42 mmol/L (22-30)
--- NOTE | 2024-09-08 07:28 | P.PN ---
Subjective Progress Note Date: 09/08/24 PROGRESS NOTE The patient is a 74-year-old female with known history of COPD, nonischemic cardiomyopathy, permanent atrial fibrillation with attempted cardioversion in May 2023 who presented with progressive dyspnea and worsening peripheral edema, was diagnosed with influenza A infection. She had worsening of her respiratory status requiring mechanical ventilation. She remains intubated, good urine output and tolerating feeding. She has no evidence of malignant arrhythmia. Her echocardiogram and admission showed an ejection fraction of 35% with mild to moderate tricuspid regurgitation and severe pulmonary hypertension that has been documented in the past. She is in sinus mechanism at this time. She underwent CT scan of the head that showed no evidence of acute events. Medications: Amiodarone 400 mg twice a day, Eliquis 5 mg twice a day, insulin, metoprolol tartrate 50 mg twice a day, Solu-Medrol, thiamine PHYSICAL EXAMINATION: Blood pressure 133/45 heart rate 75, intubated LUNGS: Clear to auscultation anteriorly HEART: Regular rate and rhythm, S1, S2. No S3. Systolic ejection murmur ABDOMEN: Soft, nontender, no organomegaly EXTREMETIES: Trace edema LAB: Hemoglobin 12.3, potassium 5.4, BUN 68, creatinine 0.87. WBC 17,000 IMPRESSION: 1. Respiratory failure with COPD exacerbation, influenza A and history of CHF with reduced ejection fraction 2. Chronic cardiomyopathy, nonischemic 3. Atrial fibrillation, maintaining sinus mechanism, status post cardioversion 4. Prior history of alcohol intake 5. Streptococcus pneumonia 6. Prior history of hypertension PLAN: 1. Continue present therapy 2. Follow renal functions and blood pressure, and if tolerated start Entresto 3. Wean as tolerated, depending on mental status 4. Prognosis is guarded Objective - Vital Signs Vital signs: Vital Signs Temp 99.1 F 09/08/24 04:00 Pulse 77 09/08/24 07:00 Resp 20 09/08/24 07:00 BP 143/70 09/08/24 00:00 Pulse Ox 97 09/08/24 07:00 FiO2 40 09/08/24 04:00 Intake & Output 09/07/24 09/08/24 09/08/24 18:59 06:59 18:59 Intake Total 1822 1347 Output Total 0987 1055 Balance -503 292 Weight 74.6 kg Intake: IV 1092 1017 0.9 3cc/ hr a-line 36 36 0.9 3cc/hr cvp 36 36 0.9 at KVO 70 120 Lactated Ringers 1,000 ml 900 825 @ 75 mls/hr IV .[id number] [facility] Rx#:[id number] cefTRIAXone 2 gm In 50 Sodium Chloride 0.9% 50 ml @ 100 mls/hr IVPB Q24HR [facility] Rx#:[id number] Intake, IV Titration 250 Amount Heparin Sod,Pork in 0.45% 250 NaCl 25,000 unit In 0.45 % NaCl 1 250ml.bag @ 11. 751 UNITS/KG/HR 10 mls/hr IV .Q24H [facility] Rx#: [id number] Tube Feeding 360 270 Other 120 60 Output: Urine 2325 1055 Other: Voiding Method Indwelling Catheter Indwelling Catheter ABP, PAP, CO, CI - Last Documented Arterial Blood Pressure 133/45 - Labs CBC & Chem 7: 09/08/24 05:00 09/08/24 05:00 Labs: Abnormal Lab Results - Last 24 Hours (Table) 09/07/24 09/07/24 09/07/24 Range/Units 10:12 11:40 17:22 WBC (3.8-10.6) k/uL RBC (3.80-5.40) m/uL MCV (80.0-100.0) fL MCH (25.0-35.0) pg Plt Count (150-450) k/uL Neutrophils # (1.3-7.7) k/uL Lymphocytes # (1.0-4.8) k/uL ABG pCO2 (35-45) mmHg ABG pO2 (83-108) mmHg ABG HCO3 (21-25) mmol/L ABG Total CO2 (19-24) mmol/L Potassium 5.7 H (3.5-5.1) mmol/L Chloride (98-107) mmol/L Carbon Dioxide (22-30) mmol/L BUN (7-17) mg/dL Glucose (74-99) mg/dL POC Glucose (mg/dL) 125 H 183 H (70-110) mg/dL 09/07/24 09/07/24 09/08/24 Range/Units 17:23 23:16 05:00 WBC 17.0 H (3.8-10.6) k/uL RBC 3.40 L (3.80-5.40) m/uL MCV 105.1 H (80.0-100.0) fL MCH 36.2 H (25.0-35.0) pg Plt Count 149 L (150-450) k/uL Neutrophils # 16.1 H (1.3-7.7) k/uL Lymphocytes # 0.2 L (1.0-4.8) k/uL ABG pCO2 (35-45) mmHg ABG pO2 (83-108) mmHg ABG HCO3 (21-25) mmol/L ABG Total CO2 (19-24) mmol/L Potassium 5.5 H (3.5-5.1) mmol/L Chloride (98-107) mmol/L Carbon Dioxide (22-30) mmol/L BUN (7-17) mg/dL Glucose (74-99) mg/dL POC Glucose (mg/dL) 140 H (70-110) mg/dL 09/08/24 09/08/24 09/08/24 Range/Units 05:00 05:08 05:27 WBC (3.8-10.6) k/uL RBC (3.80-5.40) m/uL MCV (80.0-100.0) fL MCH (25.0-35.0) pg Plt Count (150-450) k/uL Neutrophils # (1.3-7.7) k/uL Lymphocytes # (1.0-4.8) k/uL ABG pCO2 68 H (35-45) mmHg ABG pO2 78 L (83-108) mmHg ABG HCO3 45 H* (21-25) mmol/L ABG Total CO2 47 H (19-24) mmol/L Potassium 5.4 H (3.5-5.1) mmol/L Chloride 96 L (98-107) mmol/L Carbon Dioxide 42 H* (22-30) mmol/L BUN 68 H (7-17) mg/dL Glucose 120 H (74-99) mg/dL POC Glucose (mg/dL) 116 H (70-110) mg/dL
[2024-09-08 07:52] LABS: Glucose,Whole Blood 201 mg/dL (70-110)
--- NOTE | 2024-09-08 07:59 | XR ---
EXAMINATION TYPE: XR chest 1V portable DATE OF EXAM: 09/08/2024 5:30 AM COMPARISON: Chest radiographs from 09/07/2024 TECHNIQUE: XR chest 1V portable Portable AP radiograph of the chest. CLINICAL INDICATION:Female, 74 years old with history of mechanical ventilation; FINDINGS: Patient is rotated which limits evaluation. Lungs/Pleura: No pneumothorax. Blunting of the left costophrenic angle. Persistent diffuse interstiti al opacities. Heart/mediastinum: Cardiomediastinal silhouette is unremarkable. Musculoskeletal: No acute osseous pathology. Other findings: None Lines/Tubes: Endotracheal tube with distal tip 3.1 cm above the charles Nasogastric tube with its distal tip and side-port projecting under the diaphragm and projecting over the gastric lumen. Left subclavian jugular central venous catheter with distal tip at the cavoatrial junction. IMPRESSION: 1. Similar diffuse interstitial changes with small left pleural effusion. 2. Stable support lines and tubes. [facility], , 09/08/2024 7:56 AM
[2024-09-08] MEDS: SODIUM ZIRCONIUM CYCLOSILICATE 10 GM PACKET PO ONE (08:16)
[2024-09-08] MEDS: FUROSEMIDE 10 MG/ML 2 ML VIAL IV SCH (09:34)
[2024-09-08 11:47] LABS: Glucose,Whole Blood 103 mg/dL (70-110)
--- NOTE | 2024-09-08 12:09 | P.PN ---
Subjective Progress Note Date: 09/08/24 This is a 74-year-old female, familiar to my service, patient is known to have history of COPD, severe, history of chronic cor pulmonale, history of nonischemic cardiomyopathy and LV dysfunction as well as history of chronic atrial fibrillation maintained on Coumadin. Patient is also known to have histo ry of moderate mitral regurgitation. Patient is normally on oxygen at 2 L/min, she is normally on diuretics, and she was very seen about a week ago in my office with worsening swelling of her lower extremities, and patient was placed on Aldactone in addition to her Lasix. Her leg swelling improved, however patient came into the ER on 08/28/2024, came in mostly with worsening shortness of breath, cough, wheezing, apparently when she was brought in by EMS she was found to be in tripod position and she was breathing quite heavy. Patient was placed on BiPAP, that seemed to improve her pulmonary status significantly on BiPAP. In the ER, patient was noted to have positive screening for acute influenza A. Last night I was notified about this patient about her shortness of breath and being BiPAP dependent, patient is known to have history of alcohol drinking, and there was also a concern about the patient going into alcohol withdrawal. Patient required some Ativan, admitted to the ICU for close monitoring. I was asked to see her in consultation. In addition to her COPD, patient had positive screening for influenza A. Today I saw the patient in the ICU, she is still on BiPAP 12/5/40%, patient is receiving Lasix, she is also on Aldactone, patient is on Tamiflu, and she is on her usual bronchodilators and on Solu-Medrol. WBC count is 11.9 hemoglobin 12.3 INR is 3.1 electrolytes are normal renal profile is normal troponin is less than 0.012 Evaluated today on 08/31/2024, patient remains in the ICU, patient is on 4 L nasal cannula, last night she was on BiPAP 12/5/40%, patient remains on bronchodilators, Lasix, Coumadin, and she is also on doxycycline. Baseline FEV1 from my office chart is 42% at best. Clearly the patient has severe underlying COPD. Patient is now on nasal cannula, had to be on BiPAP yesterday. Chest x- ray today is suggestive of interstitial edema, underlying pneumonia is felt to be less likely but not entirely ruled out. WBC count is 11.4 hemoglobin is 14.3 INR is 3.3 electrolytes are normal bicarb is 4 0 BUN is 27 creatinine 0.66 The patient is seen today September 01, 2024 in follow-up in the intensive care unit. She is currently sitting up in bed. She is quite restless. Moving from [id number]. She was on BiPAP 12/5 and 40% FiO2. She is currently on 4 L nasal cannula. Her O2 saturation did drop into the 70s when she had her oxygen off. She did require Ativan throughout the night. Recent arterial blood gases revealed a PH of 69, pCO2 79 and a pH of 7.38. She is continued on DuoNeb inhalations, Symbicort, Solu-Medrol. Empiric antibiotics in the form of doxycycline. She remains on IV diuretics. Remains on the CIAR protocol. Anticoagulated with warfarin. White count 11.4. Hemoglobin 14.4. Platelets 169. INR 4.8. Sodium 150. Potassium 3.9. Bicarb 45. BUN 39. Creatinine 0.67. Chest x-ray reveals similar moderate interstitial opacities. The patient is seen today September 02, 2024 in follow-up in the intensive care unit. Throughout the night and early this morning she became more obtunded. She was maintained on BiPAP 12/5 and 50% FiO2. PaO2 of 90, pCO2 of 97 and a pH of 7.34. She subsequently had undergone intubation and mechanical ventilatory support. She is currently on assist-control mode at a rate of 20, tidal volume 350, FiO2 100% and a PEEP of 5. Follow-up blood gases revealed a PaO2 of 332, pCO2 75 and a pH of 7.43. The FiO2 was decreased to 40%. White count 11.4. Hemoglobin 14.7. Platelets 173. Sodium 150. Potassium 4.2. Bicarb 47. BUN 59. Creatinine 0.67. Glucose 378. AST 50. ALT 58. Amiodarone at 0.5 mg/h. Her INR was 7.2. She did receive vitamin K. She is requiring norepinephrine at 0.03 mcg/kg/min. Propofol at 15 mcg/kg/min. Continued on DuoNeb inhalations, S ymbicort, doxycycline. Chest x-ray shows evidence of COPD with superimposed pulmonary vascular congestion. Ongoing patchy left basilar and retrocardiac opacity. The patient is seen today September 03, 2024 in follow-up in the intensive care unit. She remains intubated on mechanical ventilator. Currently on assist- control mode with a rate of 20, tidal volume 350, FiO2 40% and a PEEP of 5. Morning blood gases revealed a PaO2 of 83, pCO2 of 80 and a pH of 7.38. She is still having issues with atrial fibrillation with rapid ventricular response. She is on a amiodarone drip at 1 mg/min. Remains on norepinephrine at 3.4 mcg/min. D5W at 125 mL/h. Propofol at 20 mcg/kg/min. Insulin drip at 6 units/h. She is being nourished with vital HP at 30 mL/h with a goal of 38. Chest x-ray reveals diffuse interstitial changes on a background of COPD. Small left pleural effusion. Retrocardiac consolidation/atelectasis. Blood culture reveals no growth. Sputum culture reveals no growth to date. 14.5. Platelets 222. INR 1.6. Sodium 136. Potassium 3.8. Bicarb 45. BUN 70. Creatinine 0 .91. Glucose 213. She remains on DuoNeb and elations, Pulmicort and Perforomist inhalations, IV Solu-Medrol. Remains on warfarin. Remains on Protonix. The patient is seen today September 04, 2024 in follow-up in the intensive care unit. She remains intubated on the mechanical ventilator. Currently on assist- control mode with a rate of 20, tidal volume 350, FiO2 40% and a PEEP of 5. Morning blood gases revealed a PaO2 of 76, pCO2 77 and a pH of 7.36. She remains in atrial fibrillation with a rapid ventricular response and an undergone cardioversion this a.m. with 200 J and is currently back in sinus rhythm. She remains on amiodarone drip at 0.5 mg/min. Heparin drip per weight- based protocol. Sedated with propofol at 30 mcg/kg/min. Norepinephrine at 1 mcg/min. Lactated Ringer's at 75 mL/h. She is being nourished with vital HP at 38 mL/h which is goal. She is continued on DuoNeb and elations, Pulmicort and Perforomist inhalations, IV Solu-Medrol. Protonix for GI prophylaxis. Remains on doxycycline. Sputum culture now revealing Streptococcus pneumoniae. White count 13.8. Hemoglobin 13.9. Platelets 157. INR 1.3. Sodium 132. Potassium 4.9. Bicarb 35. BUN 89. Creatinine 0.95. Glucose 178. The patient is seen today September 05, 2024 in follow-up in the intensive care unit. She remains intubated on the mechanical ventilator. Currently on assist- control mode with a rate of 20, tidal valve 350, FiO2 40% and a PEEP of 5. Morning blood gases revealed a PaO2 of 87, pCO2 of 73 and a pH of 7.38. Chest x-ray reveals cardiomegaly with small left pleural effusion. She is sedated on propofol at 30 mcg/kg/min. Remains on norepinephrine at 2 mcg/min. Continued on a heparin drip per weight-based protocol. Lactated Ringer's at 75 mL/h. She is being nourished with vital HP at 30 mL/h which is goal. She is continued on ceftriaxone. Sputum culture was positive for Klebsiella oxytoca and Streptococcus pneumoniae. Blood culture revealed no growth. Urine culture revealed no growth. White count 16.0. Hemoglobin 12.8. Platelets 147. Sodium 136. Potassium 4.7. Bicarb 40. BUN 84. Creatinine 0.94. Glucose 176. She is maintained on DuoNeb inhalations, Pulmicort and Perforomist inhalations, Solu-Medrol. Protonix for GI prophylaxis. The patient is seen today September 06, 2019 tidal valve 350, FiO2 40% and a PEEP of 5. Morning blood gases revealed a PaO2 of 79, pCO2 of 66 and a pH of 7.43. She is sedated with propofol 25 mcg/kg/min. Currently on norepinephrine at 2.1 mcg/min. Lactated Ringer's at 75 mL/h. Heparin drip per weight-based protocol. She is being nourished with vital HP 30 mL/h which is goal. She is currently in sinus rhythm. Yesterday's daily interruption of sedation the patient became quite hypertensive and tachycardic. Plan for DIS again today. Performance improved Pulmicort inhalations. IV Solu-Medrol. Continued on ceftriaxone. Sputum culture was positive for Klebsiella oxytoca and Streptococcus pneumoniae. Blood culture revealed no growth. Urine culture revealed no growth 0.2. Hemoglobin 12.2. Platelets 157. Sodium 140. Potassium 4.3. Bicarb 40. BUN 76. Creatinine 0.77. The patient is seen today September 07, 2024 in follow-up in the intensive care unit. She remains intubated on the mechanical ventilator and assist-control mode at a rate of 20, tidal valve 350, FiO2 40% and a PEEP of 5. Morning blood gases revealed a PaO2 of 82, pCO2 of 64 and a pH of 7.43. She is on a heparin drip per weight-based protocol. Lactated Ringer's at 75 mL/h. Vital HP at 30 mL/h which is goal. Her propofol has been off for over 24 hours. She remains unresponsive. Chest x-ray reveals similar multifocal interstitial opacities. Endotracheal nasogastric tubes in good position. Left triple-lumen catheter in position. Sputum culture was positive for Klebsiella oxytoca and Streptococcus pneumoniae. Blood and urine cultures revealed no growth. White count 16.8. Hemoglobin 13.7. Platelets 175. Sodium 141. Potassium 5.8. Bicarb 40. BUN 70. Creatinine 0.76. Glucose 100. He is continued on DuoNeb inhalations, Pulmicort and Perforomist inhalations, Solu-Medrol. Protonix for GI proph ylaxis. She remains on Levemir and NovoLog sliding scale. She remains on ceftriaxone. She remains in a positive balance of 1.3 L. On 09/08/2024, the patient is being seen for a follow-up. The patient remains intubated on mechanical ventilator. Noted the patient has been off sedation since 09/05/2024 and the patient is very sluggish in response. This was noted yesterday and a CAT scan of the brain was done that showed no acute abnormalities. On today's evaluation, the patient grimaces only to deep painful stimulation. She is able to give me a slight grab using her right hand. Otherwise, she is not following any commands and she is considerably encephalopathic still. She remains on mechanical ventilator assist-control mode with rate of 20, tidal volume of 350, FiO2 40% with a PEEP of 5. Blood gas from today shows a pH of 7.42 with a pCO2 of 68 and pO2 of 72. She has a left sub clavian triple-lumen catheter. Chest x-ray shows a small left-sided pleural effusion and there is diffuse interstitial changes bilaterally. The patient remains hemodynamically stable. The patient is on lactated Ringer at rate of 75 cc an hour. The patient remains on IV Rocephin. The patient remains on IV Solu-Medrol. Cardiac rhythm is sinus. The patient remains on vital high- protein at rate of 30 cc an hour. The blood work from today shows a WBC count of 17 with a heme of 12.3 and a platelet count of 149. Sodium is at 139, bicarb is at 42 with a BUN of 68 and a creatinine of 0.87. The fluid balance is +1.2 L over the past 24 hours and the patient was given a dose of Lasix yesterday with improvement in urine output. The patient remains on Levemir insulin 30 units daily along with a sign scale coverage. Objective - Vital Signs Vital signs: Vital Signs Temp 98.6 F 09/08/24 08:00 Pulse 79 09/08/24 08:00 Resp 20 09/08/24 08:00 BP 143/70 09/08/24 00:00 Pulse Ox 96 09/08/24 08:00 FiO2 40 09/08/24 08:00 Intake & Output 09/07/24 09/08/24 09/08/24 18:59 06:59 18:59 Intake Total 1822 1347 493 Output Total 2325 1055 135 Balance -503 292 358 Weight 74.6 kg Intake: IV 1092 1017 373 0.9 3cc/ hr a-line 36 36 9 0.9 3cc/hr cvp 36 36 9 0.9 at KVO 70 120 30 Lactated Ringers 1,000 ml 900 825 225 @ 75 mls/hr IV .[id number] CARLY Rx#:[id number] cefTRIAXone 2 gm In 50 100 Sodium Chloride 0.9% 50 ml @ 100 mls/hr IVPB Q24HR [facility]LY Rx#:[id number] Intake, IV Titration 250 Amount Heparin Sod,Pork in 0.45% 250 NaCl 25,000 unit In 0.45 % NaCl 1 250ml.bag @ 11. 751 UNITS/KG/HR 10 mls/hr IV .Q24H CARLY Rx#: [id number] Tube Feeding 360 270 90 Other 120 60 30 Output: Urine 2325 1055 135 Other: Voiding Method Indwelling Catheter Indwelling Catheter Indwelling Catheter ABP, PAP, CO, CI - Last Documented Arterial Blood Pressure 144/47 - Exam GENERAL EXAM: Intubated, unresponsive, off sedation, 74-year-old female, on the ventilator, in no acute distress. HEAD: Normocephalic. EYES: Sluggish reaction of pupils, equal size. NOSE: Clear with pink turbinates. THROAT: Oral endotracheal and gastric tube secured in place. No erythema or exudates. NECK: No masses, no JVD. CHEST: No chest wall deformity. Left subclavian triple-lumen catheter in place. LUNGS: Equal air entry with few scattered rhonchi. CVS: S1 and S2 normal with no audible murmur, regular rhythm. ABDOMEN: No hepatosplenomegaly, normal bowel sounds, no guarding or rigidity. SPINE: No scoliosis or deformity SKIN: Areas of ecchymosis and bruising. CENTRAL NERVOUS SYSTEM: Sedated, tone is normal in all 4 extremities. The patient remains encephalopathic. She grimaces to painful stimulation. She has been off sedation for more than 48 hours. EXTREMITIES: Right radial arterial line in place. There is no peripheral edema. Peripheral pulses are intact. - Labs CBC & Chem 7: 09/08/24 05:00 09/08/24 05:00 Labs: Abnormal Lab Results - Last 24 Hours (Table) 09/02/24 09/07/24 09/07/24 Range/Units 23:52 10:12 11:40 WBC (3.8-10.6) k/uL RBC (3.80-5.40) m/uL MCV (80.0-100.0) fL MCH (25.0-35.0) pg Plt Count (150-450) k/uL Neutrophils # (1.3-7.7) k/uL Lymphocytes # (1.0-4.8) k/uL ABG pCO2 (35-45) mmHg ABG pO2 (83-108) mmHg ABG HCO3 (21-25) mmol/L ABG Total CO2 (19-24) mmol/L Potassium 5.7 H (3.5-5.1) mmol/L Chloride (98-107) mmol/L Carbon Dioxide (22-30) mmol/L BUN (7-17) mg/dL Glucose (74-99) mg/dL POC Glucose (mg/dL) 201 H 125 H (70-110) mg/dL 09/07/24 09/07/24 09/07/24 Range/Units 17:22 17:23 23:16 WBC (3.8-10.6) k/uL RBC (3.80-5.40) m/uL MCV (80.0-100.0) fL MCH (25.0-35.0) pg Plt Count (150-450) k/uL Neutrophils # (1.3-7.7) k/uL Lymphocytes # (1.0-4.8) k/uL ABG pCO2 (35-45) mmHg ABG pO2 (83-108) mmHg ABG HCO3 (21-25) mmol/L ABG Total CO2 (19-24) mmol/L Potassium 5.5 H (3.5-5.1) mmol/L Chloride (98-107) mmol/L Carbon Dioxide (22-30) mmol/L BUN (7-17) mg/dL Glucose (74-99) mg/dL POC Glucose (mg/dL) 183 H 140 H (70-110) mg/dL 09/08/24 09/08/24 09/08/24 Range/Units 05:00 05:00 05:08 WBC 17.0 H (3.8-10.6) k/uL RBC 3.40 L (3.80-5.40) m/uL MCV 105.1 H (80.0-100.0) fL MCH 36.2 H (25.0-35.0) pg Plt Count 149 L (150-450) k/uL Neutrophils # 16.1 H (1.3-7.7) k/uL Lymphocytes # 0.2 L (1.0-4.8) k/uL ABG pCO2 68 H (35-45) mmHg ABG pO2 78 L (83-108) mmHg ABG HCO3 45 H* (21-25) mmol/L ABG Total CO2 47 H (19-24) mmol/L Potassium 5.4 H (3.5-5.1) mmol/L Chloride 96 L (98-107) mmol/L Carbon Dioxide 42 H* (22-30) mmol/L BUN 68 H (7-17) mg/dL Glucose 120 H (74-99) mg/dL POC Glucose (mg/dL) (70-110) mg/dL 09/08/24 Range/Units 05:27 WBC (3.8-10.6) k/uL RBC (3.80-5.40) m/uL MCV (80.0-100.0) fL MCH (25.0-35.0) pg Plt Count (150-450) k/uL Neutrophils # (1.3-7.7) k/uL Lymphocytes # (1.0-4.8) k/uL ABG pCO2 (35-45) mmHg ABG pO2 (83-108) mmHg ABG HCO3 (21-25) mmol/L ABG Total CO2 (19-24) mmol/L Potassium (3.5-5.1) mmol/L Chloride (98-107) mmol/L Carbon Dioxide (22-30) mmol/L BUN (7-17) mg/dL Glucose (74-99) mg/dL POC Glucose (mg/dL) 116 H (70-110) mg/dL Assessment and Plan Plan: Acute on chronic hypoxic respiratory failure secondary to a COPD exacerbation, systolic CHF exacerbation, influenza A. The patient required intubation and mechanical ventilatory support on 09/02/2024. The patient remains intubated on mechanical ventilator. Chest x-ray shows diffuse interstitial pattern and small left-sided pleural effusion. Adequate oxygenation and ventilation. Neurologically, the patient has diminished level of consciousness and the patient has been off sedation since 09/05/2024. CAT scan of the brain done on 09/07/2024 showed no acute abnormalities. Acute influenza A, completed a course of Tamiflu Acute exacerbation of COPD, remains on bronchodilators and systemic steroids Acute on chronic systolic congestive heart failure. The patient has impairment of the LV function with an ejection fraction of 35%, nonischemic cardiomyopathy with moderate degree of mitral regurgitation. Bilateral pneumonia, likely superinfection following influenza A infection and the patient has positive cultures with Streptococcus pneumonia and Klebsiella oxytoca. The patient remains on IV Rocephin. Leukocytosis Atrial fibrillation with rapid ventricular response, the patient has received cardioversion on 09/07/2024 and the patient is back in normal sinus rhythm.The patient is currently on amiodarone 4 mg p.o. twice a day and the patient is also on anticoagulation with Eliquis 5 mg p.o. twice a day. The patient is also on metoprolol 50 mg twice daily. Cardiac rhythm is sinus as stated. Hemodynamically stable and the patient is currently off pressors. Alcoholism Acute metabolic encephalopathy secondary to above. The patient remains to have diminished level of consciousness. The patient has been off sedation since 09/05/2024 and the patient had a follow-up CAT scan of the brain done on that showed no acute abnormalities. Transaminitis, likely secondary to alcoholism Moderate mitral regurgitation Nonischemic cardiomyopathy, EF of 35% Hypertension Dyslipidemia Hypothyroidism Plan: Continue ventilator support No changes on the mechanical ventilator for today Of concern is her diminished level of consciousness. Will keep the patient on propofol. Consult neurology and obtain an EEG. IV fluids are currently at KVO Started patient on Lasix 20 mg IV every 12 hours Continue IV Rocephin Continue bronchodilators Continue steroids Continue combination of amiodarone, metoprolol anticoagulation with Eliquis Continue vital HP for nutritional support We will continue to follow Condition remains quite critical and this evaluation was done in 40 minutes. Evaluation was done in the intensive care unit. Time with Patient: Greater than 30
--- NOTE | 2024-09-08 13:25 | P.PN ---
Subjective Progress Note Date: 09/08/24 Hospital Course: Patient is a 74-year-old female with past medical history significant for COPD, CHF, atrial fibrillation on Coumadin, and hypertension presents today for 1 week worsening of breathing as well as significant cough. She wears 2 L of oxygen at night but says that she has had to wear 2 L 24/7 for the past week. About 5 days ago she saw Dr. Loernzo and he started her on spironolactone due to leg swelling and fluid retention. She states that the leg swelling has improved since. She has experienced COPD exacerbations like this before. Of note her granddaughter had the flu last week. Treated for management of acute on chronic hypoxic respiratory failure secondary to COPD exacerbation, influenza A, acute HFrEF exacerbation. Cardiology consulted. Started on IV Lasix, Coumadin continued, TTE ordered. Severe LV systolic dysfunction with EF 35%, severe pulmonary hypertension. Added Farxiga to her current medical regimen. Elevated LFTs, bilirubin, abdominal ultrasound was obtained and showed no acute finding, negative Underwood sign, adherent gallstone versus small polyp measuring 3 mm. Nonobstructing renal calculi on the right. 08/29 in the evening patient became progressively short of breath, started hallucinating. She was placed on BiPAP, given her history of alcohol drinking, she was started on CIWA with Ativan, transferred to ICU for close monitoring. Patient became obtunded and was intubated on 09/02. Went into A-Fib with RVR, successfully cardioverted on 09/03. Sedation holidays 09/05: Patient became tachypneic,reattempt 09/06-patient is off sedation since 09/06 10:30, AM on 09/07 patient is nonresponsive, no withdrawal to pain, verbal stimuli, horizontal nystagmus noted, pupils are reactive. Patient required 2 doses of Dilaudid 0.[address] brain ordered. No pressor support required 09/08: Patient is minimally responsive today, tries to open eyes, does not squeeze hands, does not move the toes. CT brain showed no acute abnormalities, EEG ordered, neurology consulted Subjective: Patient is intubated and sedated Vitals Signs Reviewed. General: [Ill-appearing, intubated, Derm: [warm], [dry], multiple bruises Head: [atraumatic], [normocephalic], [symmetric] Eyes: [EOMI], [no lid lag], [anicteric sclera] Mouth: [no lip lesion], [mucus membranes moist] Cardiovascular: [S1S2 reg], [no murmur] Lungs diminished breath sounds bilaterally Abdominal: [soft], [ nontender to palpation], [no guarding], [no appreciable organomegaly] Ext: [no gross muscle atrophy], [upper extremity swelling], [no contractures] Neuro: Pupils reactive, tries to opens eyes to verbal stimuli Psych: [Intubated, Data Reviewed Today: Pertinent Labs: CBC with leukocytosis leukocytosis 17.0, hemoglobin normal stable, ABG with pH of 7.42, pCO2 68, pO2 78, sodium 1 39, potassium 5. 4, creatinine normal, blood glucose is controlled, magnesium 2. Chest x-ray: Multifocal interstitial opacities Assessment and Plan: Atrial fibrillation with RVR and Supratherapeutic INR Status post cardioversion 09/03. Started on amiodarone 400 mg p.o. twice daily Continue Metoprolol 50 mg PO BID. Started on Eliquis 5 twice daily Acute on chronic hypoxic respiratory failure multifactorial, secondary to acute influenza A, bacterial pneumonia Klebsiella oxytoca Streptococcus pneumonia, acute COPD exacerbation, acute on chronic HFrEF requiring intubation decreased level of consciousness Acute toxic metabolic encephalopathy secondary to the above Severe pulmonary hypertension Acute COPD exacerbation Anxiety Acute on chronic systolic heart failure Severe pulmonary hypertension Moderate mitral regurgitation -Laisx 20 IV twice daily, Aldactone, Losartan, Farxiga on hold. - IV Solu-Medrol 40 mg every 12 hours. -Doxycycline switched to Rocephin 2g IV QD on 09/04/2024. -Continue with DuoNeb Q4H scheduled and Q2N PRN. -Continue Pulmicort 1 mg INH BID and Performist 20 mcg INH BID. -Cardiology on board. Forest Manager on board -Discussed with RN, warp hauler -CT brain for unresponsiveness was negative -EEG, neurology Hyperkalemia: Recheck potassium ordered,, Lokelma given09/08 Constipation: Senna scheduled, added lactulose History of alcohol abuse Haldol 4 mg IV Q6H PRN agitation CIWA protocol with Ativan PRN IV thiamine 100 daily Hypertension not hypotensive anymore, Levophed stopped 09/06 0815 DVT prophylaxis: Heparin drip Anticipated discharge pending Clinical course Objective - Vital Signs Vital signs: Vital Signs Temp 99.1 F 09/08/24 12:00 Pulse 77 09/08/24 12:29 Resp 20 09/08/24 12:29 BP 143/70 09/08/24 00:00 Pulse Ox 94 L 09/08/24 12:00 FiO2 40 09/08/24 12:24 Intake & Output 09/07/24 09/08/24 09/08/24 18:59 06:59 18:59 Intake Total 1822 1347 741 Output Total 2325 1055 885 Balance -503 292 -144 Weight 74.6 kg 74.6 kg Intake: IV 1092 1017 481 0.9 3cc/ hr a-line 36 36 18 0.9 3cc/hr cvp 36 36 18 0.9 at KVO 70 120 60 Lactated Ringers 1,000 ml 900 825 285 @ 20 mls/hr IV .Q24H [facility] Rx#:[id number] cefTRIAXone 2 gm In 50 100 Sodium Chloride 0.9% 50 ml @ 100 mls/hr IVPB Q24HR [facility] Rx#:[id number] Intake, IV Titration 250 Amount Heparin Sod,Pork in 0.45% 250 NaCl 25,000 unit In 0.45 % NaCl 1 250ml.bag @ 11. 751 UNITS/KG/HR 10 mls/hr IV .Q24H [facility]LY Rx#: [id number] Tube Feeding 360 270 200 Other 120 60 60 Output: Urine 2325 1055 885 Other: Voiding Method Indwelling Catheter Indwelling Catheter Indwelling Catheter ABP, PAP, CO, CI - Last Documented Arterial Blood Pressure 138/47 - Labs CBC & Chem 7: 09/08/24 05:00 09/08/24 05:00 Labs: Abnormal Lab Results - Last 24 Hours (Table) 09/02/24 09/07/24 09/07/24 Range/Units 23:52 17:22 17:23 WBC (3.8-10.6) k/uL RBC (3.80-5.40) m/uL MCV (80.0-100.0) fL MCH (25.0-35.0) pg Plt Count (150-450) k/uL Neutrophils # (1.3-7.7) k/uL Lymphocytes # (1.0-4.8) k/uL ABG pCO2 (35-45) mmHg ABG pO2 (83-108) mmHg ABG HCO3 (21-25) mmol/L ABG Total CO2 (19-24) mmol/L Potassium 5.5 H (3.5-5.1) mmol/L Chloride (98-107) mmol/L Carbon Dioxide (22-30) mmol/L BUN (7-17) mg/dL Glucose (74-99) mg/dL POC Glucose (mg/dL) 201 H 183 H (70-110) mg/dL 09/07/24 09/08/24 09/08/24 Range/Units 23:16 05:00 05:00 WBC 17.0 H (3.8-10.6) k/uL RBC 3.40 L (3.80-5.40) m/uL MCV 105.1 H (80.0-100.0) fL MCH 36.2 H (25.0-35.0) pg Plt Count 149 L (150-450) k/uL Neutrophils # 16.1 H (1.3-7.7) k/uL Lymphocytes # 0.2 L (1.0-4.8) k/uL ABG pCO2 (35-45) mmHg ABG pO2 (83-108) mmHg ABG HCO3 (21-25) mmol/L ABG Total CO2 (19-24) mmol/L Potassium 5.4 H (3.5-5.1) mmol/L Chloride 96 L (98-107) mmol/L Carbon Dioxide 42 H* (22-30) mmol/L BUN 68 H (7-17) mg/dL Glucose 120 H (74-99) mg/dL POC Glucose (mg/dL) 140 H (70-110) mg/dL 09/08/24 09/08/24 Range/Units 05:08 05:27 WBC (3.8-10.6) k/uL RBC (3.80-5.40) m/uL MCV (80.0-100.0) fL MCH (25.0-35.0) pg Plt Count (150-450) k/uL Neutrophils # (1.3-7.7) k/uL Lymphocytes # (1.0-4.8) k/uL ABG pCO2 68 H (35-45) mmHg ABG pO2 78 L (83-108) mmHg ABG HCO3 45 H* (21-25) mmol/L ABG Total CO2 47 H (19-24) mmol/L Potassium (3.5-5.1) mmol/L Chloride (98-107) mmol/L Carbon Dioxide (22-30) mmol/L BUN (7-17) mg/dL Glucose (74-99) mg/dL POC Glucose (mg/dL) 116 H (70-110) mg/dL
[2024-09-08] MEDS: LACTULOSE 20 GM/30 ML CUP PO SCH (14:21)
[2024-09-08 16:52] LABS: Glucose,Whole Blood 155 mg/dL (70-110)
--- NOTE | 2024-09-08 17:46 | P.CNNES ---
History of Present Illness Consult date: 09/08/24 Requesting physician: Diane Barth Reason for Consult: Encephalopathy History of Present Illness: Patient is a 74-year-old female came to the hospital by ambulance on 08/28/2024 for respiratory distress, with difficulty breathing. Patient was having severe labored respirations. Patient unable to speak more than 1 word. Patient was intubated on 09/02/2024. She was sedation, but this has been discontinued on 09/05/2024, (3 days ago). Patient has not been responding, which prompted this neurology consultation. Patient's labs and CT head reports are mentioned below. Blood test shows WBC 17.0 hemoglobin 12.3 with elevated MCV 105.1. Platelets 149. ABG today with pH of 7.42, pCO2 68, saturation 95.1. Sodium is normal potassium 5.4, BUN [address] head performed yesterday showed no evidence of acute intracranial pathology. I personally reviewed CT head, agree with the findings. 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 Also evidence of old lacunar in the right anterior limb of internal capsule. Chest x-ray from this morning showed similar diffuse interstitial changes with small left pleural effusion. Stable support lines and tubes. I spoke with the nurse, who mentioned that overnight, to this morning, she is showing some movements. She does have some weak head shakes, "kind of squeeze". She does move to the sound at times. Please refer to examination below. Review of Systems ROS unobtainable: due to endotracheal tube, due to mental status Past Medical History Past Medical History: Atrial Fibrillation, Heart Failure, COPD, Hypertension History of Any Multi-Drug Resistant Organisms: None Reported Past Surgical History: Section, Hysterectomy Additional Past Surgical History / Comment(s): cataracts Past Anesthesia/Blood Transfusion Reactions: No Reported Reaction Past Psychological History: No Psychological Hx Reported Smoking Status: Former smoker Past Alcohol Use History: Daily Additional Past Alcohol Use History / Comment(s): glass of wine or rum & coke daily Past Drug Use History: Marijuana - Past Family History Mother Additional Family Medical History / Comment(s): Wegeners disease Father Family Medical History: Congestive Heart Failure (CHF) Medications and Allergies Home Medications Medication Instructions Recorded Confirmed Type Albuterol Inhaler [Ventolin Hfa 2 puff INHALATION RT-Q4H 08/17/23 08/28/24 History Inhaler] Budesonide/Glycopyr/Formoterol 2 puff INHALATION RT-BID 08/28/24 08/28/24 History [Breztri Aerosphere Inhaler] Ipratropium-Albuterol Nebulize 3 ml INHALATION RT-QID 08/28/24 08/28/24 History [Duoneb 0.5 mg-3 mg/3 ml Soln] Amiodarone [Cordarone] 200 mg PO BID tab 09/17/24 Rx Budesonide [Pulmicort] 1 mg INHALATION RT-BID ml 09/17/24 Rx Fluconazole [Diflucan] 100 mg PO DAILY tab 09/17/24 Rx Formoterol Fumarate [Perforomist] 20 mcg INHALATION RT-BID ml 09/17/24 Rx Heparin Sodium,Porcine (1 ml) 5,000 unit SQ Q8HR each 09/17/24 Rx [Heparin Sodium] INSULIN LISPRO (HumaLOG) [HumaLOG] 0 unit SQ Q6HR each 09/17/24 Rx INSULIN LISPRO (HumaLOG) [HumaLOG] 10 unit SQ AC-TID each 09/17/24 Rx Insulin Glargine (Lantus) [Lantus 30 unit SQ HS each 09/17/24 Rx Vial] Lactulose [Cephulac] 20 gm PO DAILY ml 09/17/24 Rx Levothyroxine Sodium [Synthroid] 50 mcg PO DAILY@0630 tab 09/17/24 Rx Metoprolol Tartrate [Lopressor] 50 mg PO BID tab 09/17/24 Rx Sacubitril/Valsartan [Entresto 24 1 each PO BID tab 09/17/24 Rx mg-26 mg Tablet] Sennosides [Senokot] 8.6 mg PO BID tab 09/17/24 Rx Vancomycin 1,250 mg IVPB Q16H each 09/17/24 Rx cefTRIAXone [Rocephin] 2 gm IVPB Q24HR each 09/17/24 Rx valACYclovir HCL [Valtrex] 1,000 mg PO BID tab 09/17/24 Rx Allergies Allergy/AdvReac Type Severity Reaction Status Date / Time No Known Allergies Allergy Verified 08/28/24 18:46 Physical Examination - Vital Signs Vital Signs: Vital Signs Temp Pulse Resp BP Pulse Ox FiO2 09/08/24 17:00 83 21 94 L 09/08/24 16:37 85 24 09/08/24 16:03 82 21 09/08/24 16:00 99.1 F 84 22 94 L 40 09/08/24 15:00 80 20 94 L 09/08/24 14:00 79 20 95 09/08/24 13:00 79 20 94 L 09/08/24 12:29 77 20 09/08/24 12:24 40 09/08/24 12:21 77 20 09/08/24 12:00 99.1 F 77 20 94 L 40 09/08/24 11:24 40 09/08/24 11:00 79 20 95 09/08/24 10:00 75 21 97 09/08/24 09:48 78 11 L 09/08/24 09:18 40 09/08/24 09:00 75 20 97 09/08/24 08:00 98.6 F 79 20 96 40 09/08/24 07:00 77 20 97 09/08/24 06:00 77 20 94 L 09/08/24 05:00 80 20 94 L 09/08/24 04:27 80 09/08/24 04:03 85 09/08/24 04:00 99.1 F 83 14 95 40 09/08/24 03:54 40 09/08/24 03:00 82 23 93 L 09/08/24 02:00 81 21 94 L 09/08/24 01:00 77 20 92 L 09/08/24 00:00 99.0 F 76 20 143/70 92 L 40 09/07/24 23:38 80 09/07/24 23:31 77 20 143/70 92 L 09/07/24 23:29 40 09/07/24 23:28 78 09/07/24 23:00 76 20 91 L 09/07/24 22:00 74 21 95 09/07/24 21:00 75 20 94 L 09/07/24 20:23 90 09/07/24 20:15 84 09/07/24 20:14 82 09/07/24 20:00 99.1 F 79 21 94 L 40 09/07/24 19:57 40 09/07/24 19:00 78 20 94 L 09/07/24 18:00 76 20 92 L Intake and Output 09/08/24 09/08/24 09/08/24 06:59 14:59 22:59 Intake Total 833 893 258 Output Total 610 1260 400 Balance 223 -367 -142 Intake: IV 653 553 108 0.9 3cc/ hr a-line 24 24 9 0.9 3cc/hr cvp 24 24 9 0.9 at KVO 80 80 30 Lactated Ringers 1,000 ml 525 325 60 @ 20 mls/hr IV .Q24H [facility] Rx#:[id number] cefTRIAXone 2 gm In 100 Sodium Chloride 0.9% 50 ml @ 100 mls/hr IVPB Q24HR [facility]LY Rx#:[id number] Tube Feeding 150 280 120 Other 30 60 30 Output: Urine 610 1260 400 Other: Voiding Method Indwelling Catheter Indwelling Catheter Indwelling Catheter Weight 74.6 kg 74.6 kg ABP, PAP, CO, CI - Last 8 Hours Arterial Blood Pressure 123/41 Arterial Blood Pressure 133/47 Arterial Blood Pressure 129/46 Arterial Blood Pressure 120/41 Arterial Blood Pressure 129/42 Arterial Blood Pressure 138/47 Arterial Blood Pressure 160/56 Arterial Blood Pressure 154/50 Patient is an elderly female, who is intubated, not on any sedation for last 3 days. Patient is severely encephalopathic. Patient does not respond to calling her name. With painful stimuli (nailbed pressure) of all 4 extremities, patient responds very equally with facial grimacing. However on slight pinching on the shoulders, patient responded much more better. She does breathe over the ventilator. Patient does have gag and cough. No obvious seizure-like activity noted. Speech and language functions cannot be assessed. Attention, concentration and fund of knowledge cannot be assessed. Patient is severely encephalopathic. On cranial nerve examination, pupils are equal, round and reacting to light, oculocephalics are present, corneal reflex present bilaterally. Visual perez cannot be tested. Patient does have a gag and cough. On muscle strength testing, patient did not move her arms or legs to command. With painful stimulus, as mentioned above. Deep tendon reflexes are symmetric absent in the upper limbs, trace to 1 at the knees, plantars are downgoing bilaterally. No clonus. Sensory to touch cannot be assessed. Cerebellar function cannot be assessed. Tone and bulk of muscles normal. Gait deferred.. On general examination, there is no carotid bruit or murmur, S1-S2 audible. Chest is clear on consultation. Abdomen is soft nontender. No organomegaly, bowel sounds present. Peripheral pulses are present. No peripheral edema. Results - Laboratory Findings CBC and BMP: 09/17/24 05:05 09/17/24 05:05 Abnormal Lab Findings: Abnormal Labs 08/28/24 08/28/24 08/28/24 18:09 18:09 18:09 WBC RBC Hct MCV 103.7 H MCH MCHC Plt Count Neutrophils # 8.9 H Lymphocytes # 0.6 L Macrocytosis PT 27.3 H INR 2.7 H APTT ABG pH ABG pCO2 ABG pO2 ABG HCO3 ABG Total CO2 ABG O2 Saturation Sodium 131 L Potassium Chloride 87 L Carbon Dioxide BUN 18 H Glucose 117 H POC Glucose (mg/dL) Hemoglobin A1c Plasma Lactic Acid Luis Calcium Magnesium 1.3 L Total Bilirubin 3.5 H AST 77 H ALT 48 H Alkaline Phosphatase 145 H Total Protein Albumin Procalcitonin Influenza Type A (PCR) 08/28/24 08/28/24 08/29/24 18:09 18:12 05:19 WBC RBC Hct MCV MCH MCHC Plt Count Neutrophils # Lymphocytes # Macrocytosis PT 23.2 H INR 2.3 H APTT ABG pH ABG pCO2 ABG pO2 ABG HCO3 ABG Total CO2 ABG O2 Saturation Sodium Potassium Chloride Carbon Dioxide BUN Glucose POC Glucose (mg/dL) Hemoglobin A1c Plasma Lactic Acid Luis 3.5 H* Calcium Magnesium Total Bilirubin AST ALT Alkaline Phosphatase Total Protein Albumin Procalcitonin Influenza Type A (PCR) Detected A 08/29/24 08/29/24 08/29/24 05:19 22:54 23:15 WBC 15.3 H RBC Hct MCV 106.8 H MCH MCHC Plt Count Neutrophils # 14.1 H Lymphocytes # 0.2 L Macrocytosis PT INR APTT ABG pH ABG pCO2 ABG pO2 ABG HCO3 ABG Total CO2 ABG O2 Saturation Sodium 136 L Potassium Chloride 91 L Carbon Dioxide 37 H BUN 21 H Glucose 149 H POC Glucose (mg/dL) 166 H Hemoglobin A1c Plasma Lactic Acid Luis Calcium 8.3 L Magnesium Total Bilirubin 2.5 H AST 83 H ALT 59 H Alkaline Phosphatase Total Protein Albumin 3.2 L Procalcitonin Influenza Type A (PCR) 08/29/24 08/30/24 08/30/24 23:15 03:55 03:55 WBC RBC Hct MCV MCH MCHC Plt Count Neutrophils # Lymphocytes # Macrocytosis PT 30.3 H INR 3.1 H APTT ABG pH ABG pCO2 ABG pO2 ABG HCO3 ABG Total CO2 ABG O2 Saturation Sodium 134 L 135 L Potassium 3.4 L Chloride 92 L 93 L Carbon Dioxide 31 H 39 H BUN 28 H 28 H Glucose 161 H 137 H POC Glucose (mg/dL) Hemoglobin A1c Plasma Lactic Acid Luis Calcium 8.2 L Magnesium Total Bilirubin 1.8 H AST 135 H ALT 88 H Alkaline Phosphatase Total Protein 6.0 L Albumin 2.8 L Procalcitonin Influenza Type A (PCR) 08/30/24 08/31/24 08/31/24 03:55 05:20 05:20 WBC 11.9 H RBC 3.69 L Hct MCV 106.9 H MCH MCHC Plt Count Neutrophils # Lymphocytes # Macrocytosis PT 32.4 H INR 3.3 H APTT ABG pH ABG pCO2 ABG pO2 ABG HCO3 ABG Total CO2 ABG O2 Saturation Sodium Potassium Chloride 92 L Carbon Dioxide 40 H BUN 27 H Glucose 117 H POC Glucose (mg/dL) Hemoglobin A1c Plasma Lactic Acid Luis Calcium Magnesium Total Bilirubin AST ALT Alkaline Phosphatase Total Protein Albumin Procalcitonin Influenza Type A (PCR) 08/31/24 09/01/24 09/01/24 05:20 04:21 04:21 WBC 11.4 H 11.4 H RBC Hct 46.8 H MCV 108.0 H 110.5 H MCH MCHC 30.8 L Plt Count Neutrophils # 10.6 H Lymphocytes # 0.2 L Macrocytosis Marked A Marked A PT INR APTT ABG pH ABG pCO2 ABG pO2 ABG HCO3 ABG Total CO2 ABG O2 Saturation Sodium 150 H Potassium Chloride 93 L Carbon Dioxide 45 H* BUN 39 H Glucose 154 H POC Glucose (mg/dL) Hemoglobin A1c Plasma Lactic Acid Luis Calcium Magnesium Total Bilirubin AST ALT Alkaline Phosphatase Total Protein Albumin Procalcitonin Influenza Type A (PCR) 09/01/24 09/01/24 09/01/24 04:21 04:21 04:21 WBC RBC Hct MCV MCH MCHC Plt Count Neutrophils # Lymphocytes # Macrocytosis PT 47.6 H INR 4.8 H APTT ABG pH ABG pCO2 ABG pO2 ABG HCO3 ABG Total CO2 ABG O2 Saturation Sodium Potassium Chloride Carbon Dioxide BUN Glucose POC Glucose (mg/dL) Hemoglobin A1c Plasma Lactic Acid Luis Calcium Magnesium Total Bilirubin AST 70 H ALT 73 H Alkaline Phosphatase Total Protein Albumin Procalcitonin 0.71 H Influenza Type A (PCR) 09/01/24 09/02/24 09/02/24 09:34 00:46 05:24 WBC RBC Hct MCV MCH MCHC Plt Count Neutrophils # Lymphocytes # Macrocytosis PT 72.2 H INR 7.2 H* APTT ABG pH ABG pCO2 79 H* ABG pO2 69 L ABG HCO3 42 H* ABG Total CO2 79 H ABG O2 Saturation 93.2 L Sodium Potassium Chloride Carbon Dioxide BUN Glucose POC Glucose (mg/dL) 201 H Hemoglobin A1c Plasma Lactic Acid Luis Calcium Magnesium Total Bilirubin AST ALT Alkaline Phosphatase Total Protein Albumin Procalcitonin Influenza Type A (PCR) 09/02/24 09/02/24 09/02/24 05:24 05:24 05:24 WBC 11.4 H RBC Hct 48.7 H MCV 112.4 H MCH MCHC 30.2 L Plt Count Neutrophils # 10.5 H Lymphocytes # 0.1 L Macrocytosis Marked A PT INR APTT ABG pH ABG pCO2 ABG pO2 ABG HCO3 ABG Total CO2 ABG O2 Saturation Sodium 150 H Potassium Chloride 95 L Carbon Dioxide 47 H* BUN 59 H Glucose 294 H POC Glucose (mg/dL) Hemoglobin A1c 6.8 H Plasma Lactic Acid Luis Calcium Magnesium Total Bilirubin 1.7 H AST 50 H ALT 58 H Alkaline Phosphatase Total Protein 6.0 L Albumin 2.6 L Procalcitonin Influenza Type A (PCR) 09/02/24 09/02/24 09/02/24 08:21 09:55 11:00 WBC RBC Hct MCV MCH MCHC Plt Count Neutrophils # Lymphocytes # Macrocytosis PT INR APTT ABG pH 7.34 L ABG pCO2 97 H* 75 H* ABG pO2 332 H ABG HCO3 52 H* 50 H* ABG Total CO2 55 H 52 H ABG O2 Saturation >100.0 H Sodium Potassium Chloride Carbon Dioxide BUN Glucose POC Glucose (mg/dL) 351 H Hemoglobin A1c Plasma Lactic Acid Luis Calcium Magnesium Total Bilirubin AST ALT Alkaline Phosphatase Total Protein Albumin Procalcitonin Influenza Type A (PCR) 09/02/24 09/02/24 09/02/24 12:07 12:57 14:03 WBC RBC Hct MCV MCH MCHC Plt Count Neutrophils # Lymphocytes # Macrocytosis PT INR APTT ABG pH ABG pCO2 ABG pO2 ABG HCO3 ABG Total CO2 ABG O2 Saturation Sodium Potassium Chloride Carbon Dioxide BUN Glucose POC Glucose (mg/dL) 378 H 377 H 296 H Hemoglobin A1c Plasma Lactic Acid Luis Calcium Magnesium Total Bilirubin AST ALT Alkaline Phosphatase Total Protein Albumin Procalcitonin Influenza Type A (PCR) 09/02/24 09/02/24 09/02/24 14:56 16:15 16:52 WBC RBC Hct MCV MCH MCHC Plt Count Neutrophils # Lymphocytes # Macrocytosis PT INR APTT ABG pH ABG pCO2 ABG pO2 ABG HCO3 ABG Total CO2 ABG O2 Saturation Sodium Potassium Chloride Carbon Dioxide BUN Glucose POC Glucose (mg/dL) 249 H 189 H 162 H Hemoglobin A1c Plasma Lactic Acid Luis Calcium Magnesium Total Bilirubin AST ALT Alkaline Phosphatase Total Protein Albumin Procalcitonin Influenza Type A (PCR) 09/02/24 09/02/24 09/02/24 18:00 19:00 20:12 WBC RBC Hct MCV MCH MCHC Plt Count Neutrophils # Lymphocytes # Macrocytosis PT INR APTT ABG pH ABG pCO2 ABG pO2 ABG HCO3 ABG Total CO2 ABG O2 Saturation Sodium Potassium Chloride Carbon Dioxide BUN Glucose POC Glucose (mg/dL) 132 H 125 H 142 H Hemoglobin A1c Plasma Lactic Acid Luis Calcium Magnesium Total Bilirubin AST ALT Alkaline Phosphatase Total Protein Albumin Procalcitonin Influenza Type A (PCR) 09/02/24 09/02/24 09/02/24 21:25 21:57 22:59 WBC RBC Hct MCV MCH MCHC Plt Count Neutrophils # Lymphocytes # Macrocytosis PT INR APTT ABG pH ABG pCO2 ABG pO2 ABG HCO3 ABG Total CO2 ABG O2 Saturation Sodium Potassium Chloride Carbon Dioxide BUN Glucose POC Glucose (mg/dL) 219 H 219 H 204 H Hemoglobin A1c Plasma Lactic Acid Luis Calcium Magnesium Total Bilirubin AST ALT Alkaline Phosphatase Total Protein Albumin Procalcitonin Influenza Type A (PCR) 09/02/24 09/03/24 09/03/24 23:52 00:52 01:53 WBC RBC Hct MCV MCH MCHC Plt Count Neutrophils # Lymphocytes # Macrocytosis PT INR APTT ABG pH ABG pCO2 ABG pO2 ABG HCO3 ABG Total CO2 ABG O2 Saturation Sodium Potassium Chloride Carbon Dioxide BUN Glucose POC Glucose (mg/dL) 201 H 177 H 171 H Hemoglobin A1c Plasma Lactic Acid Luis Calcium Magnesium Total Bilirubin AST ALT Alkaline Phosphatase Total Protein Albumin Procalcitonin Influenza Type A (PCR) 09/03/24 09/03/24 09/03/24 02:54 03:53 04:55 WBC RBC Hct MCV MCH MCHC Plt Count Neutrophils # Lymphocytes # Macrocytosis PT 17.0 H INR 1.6 H APTT ABG pH ABG pCO2 ABG pO2 ABG HCO3 ABG Total CO2 ABG O2 Saturation Sodium Potassium Chloride Carbon Dioxide BUN Glucose POC Glucose (mg/dL) 189 H 185 H Hemoglobin A1c Plasma Lactic Acid Luis Calcium Magnesium Total Bilirubin AST ALT Alkaline Phosphatase Total Protein Albumin Procalcitonin Influenza Type A (PCR) 09/03/24 09/03/24 09/03/24 04:55 04:56 05:06 WBC RBC Hct MCV MCH MCHC Plt Count Neutrophils # Lymphocytes # Macrocytosis PT INR APTT ABG pH ABG pCO2 80 H* ABG pO2 ABG HCO3 47 H* ABG Total CO2 50 H ABG O2 Saturation Sodium 136 L Potassium Chloride 86 L Carbon Dioxide 45 H* BUN 70 H Glucose 213 H POC Glucose (mg/dL) 194 H Hemoglobin A1c Plasma Lactic Acid Luis Calcium Magnesium Total Bilirubin AST ALT Alkaline Phosphatase Total Protein Albumin Procalcitonin Influenza Type A (PCR) 09/03/24 09/03/24 09/03/24 05:45 05:49 06:47 WBC 17.0 H RBC Hct 47.2 H MCV 110.0 H MCH MCHC 30.7 L Plt Count Neutrophils # 15.7 H Lymphocytes # 0.3 L Macrocytosis Marked A PT INR APTT ABG pH ABG pCO2 ABG pO2 ABG HCO3 ABG Total CO2 ABG O2 Saturation Sodium Potassium Chloride Carbon Dioxide BUN Glucose POC Glucose (mg/dL) 206 H 181 H Hemoglobin A1c Plasma Lactic Acid Luis Calcium Magnesium Total Bilirubin AST ALT Alkaline Phosphatase Total Protein Albumin Procalcitonin Influenza Type A (PCR) 09/03/24 09/03/24 09/03/24 08:13 09:03 09:58 WBC RBC Hct MCV MCH MCHC Plt Count Neutrophils # Lymphocytes # Macrocytosis PT INR APTT ABG pH ABG pCO2 ABG pO2 ABG HCO3 ABG Total CO2 ABG O2 Saturation Sodium Potassium Chloride Carbon Dioxide BUN Glucose POC Glucose (mg/dL) 178 H 150 H 145 H Hemoglobin A1c Plasma Lactic Acid Luis Calcium Magnesium Total Bilirubin AST ALT Alkaline Phosphatase Total Protein Albumin Procalcitonin Influenza Type A (PCR) 09/03/24 09/03/24 09/03/24 11:16 11:58 13:00 WBC RBC Hct MCV MCH MCHC Plt Count Neutrophils # Lymphocytes # Macrocytosis PT INR APTT ABG pH ABG pCO2 ABG pO2 ABG HCO3 ABG Total CO2 ABG O2 Saturation Sodium Potassium Chloride Carbon Dioxide BUN Glucose POC Glucose (mg/dL) 144 H 137 H 163 H Hemoglobin A1c Plasma Lactic Acid Luis Calcium Magnesium Total Bilirubin AST ALT Alkaline Phosphatase Total Protein Albumin Procalcitonin Influenza Type A (PCR) 09/03/24 09/03/24 09/03/24 13:54 15:29 16:02 WBC RBC Hct MCV MCH MCHC Plt Count Neutrophils # Lymphocytes # Macrocytosis PT INR APTT ABG pH ABG pCO2 ABG pO2 ABG HCO3 ABG Total CO2 ABG O2 Saturation Sodium Potassium Chloride Carbon Dioxide BUN Glucose POC Glucose (mg/dL) 175 H 198 H 235 H Hemoglobin A1c Plasma Lactic Acid Luis Calcium Magnesium Total Bilirubin AST ALT Alkaline Phosphatase Total Protein Albumin Procalcitonin Influenza Type A (PCR) 09/03/24 09/03/24 09/03/24 17:52 19:48 20:00 WBC RBC Hct MCV MCH MCHC Plt Count Neutrophils # Lymphocytes # Macrocytosis PT INR APTT 32.5 H ABG pH ABG pCO2 ABG pO2 ABG HCO3 ABG Total CO2 ABG O2 Saturation Sodium Potassium Chloride Carbon Dioxide BUN Glucose POC Glucose (mg/dL) 222 H 203 H Hemoglobin A1c Plasma Lactic Acid Luis Calcium Magnesium Total Bilirubin AST ALT Alkaline Phosphatase Total Protein Albumin Procalcitonin Influenza Type A (PCR) 09/04/24 09/04/24 09/04/24 00:14 02:15 04:47 WBC RBC Hct MCV MCH MCHC Plt Count Neutrophils # Lymphocytes # Macrocytosis PT INR APTT 45.4 H ABG pH ABG pCO2 77 H* ABG pO2 76 L ABG HCO3 44 H* ABG Total CO2 46 H ABG O2 Saturation Sodium Potassium Chloride Carbon Dioxide BUN Glucose POC Glucose (mg/dL) 150 H Hemoglobin A1c Plasma Lactic Acid Luis Calcium Magnesium Total Bilirubin AST ALT Alkaline Phosphatase Total Protein Albumin Procalcitonin Influenza Type A (PCR) 09/04/24 09/04/24 09/04/24 05:15 06:14 06:14 WBC 13.8 H RBC Hct MCV 108.6 H MCH MCHC 30.9 L Plt Count Neutrophils # 12.5 H Lymphocytes # 0.2 L Macrocytosis Marked A PT 13.7 H INR 1.3 H APTT ABG pH ABG pCO2 ABG pO2 ABG HCO3 ABG Total CO2 ABG O2 Saturation Sodium 132 L Potassium Chloride 89 L Carbon Dioxide 35 H BUN 89 H Glucose 178 H POC Glucose (mg/dL) Hemoglobin A1c Plasma Lactic Acid Luis Calcium Magnesium Total Bilirubin AST ALT Alkaline Phosphatase Total Protein Albumin Procalcitonin Influenza Type A (PCR) 09/04/24 09/04/24 09/04/24 06:28 12:03 18:16 WBC RBC Hct MCV MCH MCHC Plt Count Neutrophils # Lymphocytes # Macrocytosis PT INR APTT ABG pH ABG pCO2 ABG pO2 ABG HCO3 ABG Total CO2 ABG O2 Saturation Sodium Potassium Chloride Carbon Dioxide BUN Glucose POC Glucose (mg/dL) 166 H 184 H 166 H Hemoglobin A1c Plasma Lactic Acid Luis Calcium Magnesium Total Bilirubin AST ALT Alkaline Phosphatase Total Protein Albumin Procalcitonin Influenza Type A (PCR) 09/04/24 09/05/24 09/05/24 21:05 00:26 01:45 WBC RBC Hct MCV MCH MCHC Plt Count Neutrophils # Lymphocytes # Macrocytosis PT INR APTT 46.2 H ABG pH ABG pCO2 ABG pO2 ABG HCO3 ABG Total CO2 ABG O2 Saturation Sodium Potassium Chloride Carbon Dioxide BUN Glucose POC Glucose (mg/dL) 220 H 196 H Hemoglobin A1c Plasma Lactic Acid Luis Calcium Magnesium Total Bilirubin AST ALT Alkaline Phosphatase Total Protein Albumin Procalcitonin Influenza Type A (PCR) 09/05/24 09/05/24 09/05/24 04:52 05:08 05:08 WBC 16.0 H RBC Hct MCV 106.9 H MCH MCHC Plt Count 147 L Neutrophils # Lymphocytes # Macrocytosis PT INR APTT ABG pH ABG pCO2 73 H* ABG pO2 ABG HCO3 43 H* ABG Total CO2 45 H ABG O2 Saturation Sodium 136 L Potassium Chloride 92 L Carbon Dioxide 40 H BUN 84 H Glucose 176 H POC Glucose (mg/dL) Hemoglobin A1c Plasma Lactic Acid Luis Calcium Magnesium Total Bilirubin AST ALT Alkaline Phosphatase Total Protein Albumin Procalcitonin Influenza Type A (PCR) 09/05/24 09/05/24 09/05/24 05:59 11:50 17:32 WBC RBC Hct MCV MCH MCHC Plt Count Neutrophils # Lymphocytes # Macrocytosis PT INR APTT ABG pH ABG pCO2 ABG pO2 ABG HCO3 ABG Total CO2 ABG O2 Saturation Sodium Potassium Chloride Carbon Dioxide BUN Glucose POC Glucose (mg/dL) 165 H 153 H 162 H Hemoglobin A1c Plasma Lactic Acid Luis Calcium Magnesium Total Bilirubin AST ALT Alkaline Phosphatase Total Protein Albumin Procalcitonin Influenza Type A (PCR) 09/06/24 09/06/24 09/06/24 00:04 02: 04:34 WBC RBC Hct MCV MCH MCHC Plt Count Neutrophils # Lymphocytes # Macrocytosis PT INR APTT 38.2 H ABG pH ABG pCO2 ABG pO2 ABG HCO3 ABG Total CO2 ABG O2 Saturation Sodium Potassium 5.3 H Chloride 96 L Carbon Dioxide 40 H BUN 76 H Glucose 137 H POC Glucose (mg/dL) 131 H Hemoglobin A1c Plasma Lactic Acid Luis Calcium Magnesium Total Bilirubin AST ALT Alkaline Phosphatase Total Protein Albumin Procalcitonin Influenza Type A (PCR) 09/06/24 09/06/24 09/06/24 04:34 05:09 10:32 WBC 13.2 H RBC 3.70 L Hct MCV 105.7 H MCH MCHC Plt Count Neutrophils # Lymphocytes # Macrocytosis PT INR APTT 52.9 H ABG pH ABG pCO2 66 H ABG pO2 79 L ABG HCO3 44 H* ABG Total CO2 46 H ABG O2 Saturation Sodium Potassium Chloride Carbon Dioxide BUN Glucose POC Glucose (mg/dL) Hemoglobin A1c Plasma Lactic Acid Luis Calcium Magnesium Total Bilirubin AST ALT Alkaline Phosphatase Total Protein Albumin Procalcitonin Influenza Type A (PCR) 09/06/24 09/06/24 09/06/24 11:51 18:12 18:12 WBC RBC Hct MCV MCH MCHC Plt Count Neutrophils # Lymphocytes # Macrocytosis PT INR APTT ABG pH ABG pCO2 ABG pO2 ABG HCO3 ABG Total CO2 ABG O2 Saturation Sodium Potassium 5.8 H Chloride Carbon Dioxide BUN Glucose POC Glucose (mg/dL) 132 H 181 H Hemoglobin A1c Plasma Lactic Acid Luis Calcium Magnesium Total Bilirubin AST ALT Alkaline Phosphatase Total Protein Albumin Procalcitonin Influenza Type A (PCR) 09/06/24 09/06/24 09/07/24 20:51 23:46 04:28 WBC 16.8 H RBC Hct MCV 106.6 H MCH MCHC Plt Count Neutrophils # 15.6 H Lymphocytes # 0.2 L Macrocytosis PT INR APTT ABG pH ABG pCO2 ABG pO2 ABG HCO3 ABG Total CO2 ABG O2 Saturation Sodium Potassium Chloride Carbon Dioxide BUN Glucose POC Glucose (mg/dL) 168 H 123 H Hemoglobin A1c Plasma Lactic Acid Luis Calcium Magnesium Total Bilirubin AST ALT Alkaline Phosphatase Total Protein Albumin Procalcitonin Influenza Type A (PCR) 09/07/24 09/07/24 09/07/24 04:28 04:28 05:06 WBC RBC Hct MCV MCH MCHC Plt Count Neutrophils # Lymphocytes # Macrocytosis PT INR APTT 49.9 H ABG pH ABG pCO2 64 H ABG pO2 82 L ABG HCO3 42 H* ABG Total CO2 44 H ABG O2 Saturation Sodium Potassium 5.8 H Chloride Carbon Dioxide 40 H BUN 70 H Glucose 100 H POC Glucose (mg/dL) Hemoglobin A1c Plasma Lactic Acid Luis Calcium Magnesium Total Bilirubin AST ALT Alkaline Phosphatase Total Protein Albumin Procalcitonin Influenza Type A (PCR) 09/07/24 09/07/24 09/07/24 10:12 11:40 17:22 WBC RBC Hct MCV MCH MCHC Plt Count Neutrophils # Lymphocytes # Macrocytosis PT INR APTT ABG pH ABG pCO2 ABG pO2 ABG HCO3 ABG Total CO2 ABG O2 Saturation Sodium Potassium 5.7 H Chloride Carbon Dioxide BUN Glucose POC Glucose (mg/dL) 125 H 183 H Hemoglobin A1c Plasma Lactic Acid Luis Calcium Magnesium Total Bilirubin AST ALT Alkaline Phosphatase Total Protein Albumin Procalcitonin Influenza Type A (PCR) 09/07/24 09/07/24 09/08/24 17:23 23:16 05:00 WBC 17.0 H RBC 3.40 L Hct MCV 105.1 H MCH 36.2 H MCHC Plt Count 149 L Neutrophils # 16.1 H Lymphocytes # 0.2 L Macrocytosis PT INR APTT ABG pH ABG pCO2 ABG pO2 ABG HCO3 ABG Total CO2 ABG O2 Saturation Sodium Potassium 5.5 H Chloride Carbon Dioxide BUN Glucose POC Glucose (mg/dL) 140 H Hemoglobin A1c Plasma Lactic Acid Luis Calcium Magnesium Total Bilirubin AST ALT Alkaline Phosphatase Total Protein Albumin Procalcitonin Influenza Type A (PCR) 09/08/24 09/08/24 09/08/24 05:00 05:08 05:27 WBC RBC Hct MCV MCH MCHC Plt Count Neutrophils # Lymphocytes # Macrocytosis PT INR APTT ABG pH ABG pCO2 68 H ABG pO2 78 L ABG HCO3 45 H* ABG Total CO2 47 H ABG O2 Saturation Sodium Potassium 5.4 H Chloride 96 L Carbon Dioxide 42 H* BUN 68 H Glucose 120 H POC Glucose (mg/dL) 116 H Hemoglobin A1c Plasma Lactic Acid Luis Calcium Magnesium Total Bilirubin AST ALT Alkaline Phosphatase Total Protein Albumin Procalcitonin Influenza Type A (PCR) 09/08/24 16:50 WBC RBC Hct MCV MCH MCHC Plt Count Neutrophils # Lymphocytes # Macrocytosis PT INR APTT ABG pH ABG pCO2 ABG pO2 ABG HCO3 ABG Total CO2 ABG O2 Saturation Sodium Potassium Chloride Carbon Dioxide BUN Glucose POC Glucose (mg/dL) 155 H Hemoglobin A1c Plasma Lactic Acid Luis Calcium Magnesium Total Bilirubin AST ALT Alkaline Phosphatase Total Protein Albumin Procalcitonin Influenza Type A (PCR) Assessment and Plan Assessment: Altered mental status, likely due to toxic metabolic encephalopathy. Reasons multifactorial as mentioned below Elevated pCO2, 65 Acute renal insufficiency, improving Ventilatory dependent respiratory failure COPD exacerbation CHF exacerbation Acute influenza A, completed course of Tamiflu Bilateral pneumonia Leukocytosis Atrial fibrillation with rapid ventricular response History of alcoholism Moderate MR Nonischemic cardiomyopathy with EF 35% Hypertension Hyperlipidemia Hypothyroidism Plan: * EEG was performed, which was abnormal, due to background slowing of moderate to severe degree. This is suggestive of generalized cerebral dysfunction as c an be seen with toxic metabolic encephalopathy or related to diffuse structural brain abnormality. Correlation is recommended. No epileptiform activity was seen. * CT head showed no acute process. * Medical management as per IM, critical care and other specialties on board. * Hopefully patient's mentation will improve, once metabolic conditions comes under control. * Thank you for the consult.
[2024-09-08 17:59] LABS: Glucose,Whole Blood 183 mg/dL (70-110)
--- NOTE | 2024-09-08 18:38 | EEG ---
ELECTROENCEPHALOGRAM REPORT PREAMBLE: This is a 74-year-old female with altered mental status. The patient is intubated. Also has history of alcohol abuse. CURRENT MEDICATIONS: 1. Cordarone. 2. Eliquis. 3. Lasix. 4. Dilaudid. 5. Lopressor. 6. Propofol. 7. Senokot. EEG FINDINGS: This is a 21-channel digital EEG recorded with video component, utilizing 10/20 international system with referential and bipolar montages. The background consists of predominantly low amplitude, diffuse 2 to 3 hertz generalized delta slowing seen in bihemispheric region. Occasionally, slightly better background was seen with presence of 7 hertz theta seen sporadically in posterior head region. Different stages of sleep were not clearly seen. Hyperventilation and photic stimulation were not performed. No focal or generalized epileptiform activity was seen. IMPRESSION: This is an abnormal EEG due to background slowing of moderate to severe degree. This is suggestive of generalized cerebral dysfunction as can be seen with toxic metabolic encephalopathy or related to diffuse structural brain abnormality, or related to medication effect. Clinical correlation is recommended. No epileptiform activity was seen. MMODL / IJN: [id number] /
[2024-09-09 00:10] LABS: Glucose,Whole Blood 123 mg/dL (70-110)
[2024-09-09 05:29] LABS: ABG Base Excess 17.2 mmol/L; ABG PCO2 61 mmHg (35-45); ABG PH 7.47 (7.35-7.45); ABG PO2 67 mmHg (83-108); ABG TCO2 46 mmol/L (19-24)
[2024-09-09 05:38] LABS: Glucose,Whole Blood 162 mg/dL (70-110)
[2024-09-09 05:43] LABS: ABG HCO3 44 mmol/L (21-25); Allen Test Performed? no
[2024-09-09 05:50] LABS: African American GFR (CKD) 72 (>60 ml/min/1.73 sqM); Blood Urea Nitrogen 65 mg/dL (7-17); Calcium 8.4 mg/dL (8.4-10.2); Chloride 93 mmol/L (98-107); Glucose 163 mg/dL (74-99); Non-African American GFR(CKD) 62 (>60 ml/min/1.73 sqM); Sodium 140 mmol/L (137-145)
[2024-09-09 05:57] LABS: Anion Gap 6 mmol/L
[2024-09-09 05:58] LABS: Carbon Dioxide 41 mmol/L (22-30)
[2024-09-09 06:42] LABS: Basophils % (A) 0 %; Eosinophils % (A) 0 %; HCT 40.6 % (34.0-46.0); HGB 12.9 gm/dL (11.4-16.0); Lymphocytes # (A) 0.2 k/uL (1.0-4.8); Lymphocytes % (A) 0 %; MCH 33.4 pg (25.0-35.0); MCHC 31.8 g/dL (31.0-37.0); MCV 104.9 fL (80.0-100.0); Macrocytosis Moderate; Monocytes # (A) 0.9 k/uL (0-1.0); Monocytes % (A) 3 %; Neutrophils # (A) 33.9 k/uL (1.3-7.7); Neutrophils % (A) 96 %; RBC 3.87 m/uL (3.80-5.40); RDW 14.4 % (11.5-15.5); WBC 35.2 k/uL (3.8-10.6)
--- NOTE | 2024-09-09 07:27 | P.PN ---
Subjective Progress Note Date: 09/09/24 PROGRESS NOTE The patient is a 74-year-old female with known history of COPD, nonischemic cardiomyopathy, permanent atrial fibrillation with attempted cardioversion in May 2023 who presented with progressive dyspnea and worsening peripheral edema, was diagnosed with influenza A infection. She had worsening of her respiratory status requiring mechanical ventilation. She remains intubated, good urine output and tolerating feeding. She has no evidence of malignant arrhythmia. Her echocardiogram and admission showed an ejection fraction of 35% with mild to moderate tricuspid regurgitation and severe pulmonary hypertension that has been documented in the past. She is in sinus mechanism at this time. She underwent CT scan of the head that showed no evidence of acute events. September 09: The patient remains intubated, not following verbal command. She is in sinus mechanism on no vasopressors. Her urinary output has been good. She has been evaluated by the neurology service for her mental status and felt probably to have metabolic encephalopathy. There is no evidence of recurrent atrial fibrillation. She continues to be in sinus mechanism. Medications: Amiodarone 400 mg twice a day, Eliquis 5 mg twice a day, insulin, metoprolol tartrate 50 mg twice a day, Solu-Medrol, thiamine Lasix 20 mg IV every 12 hours PHYSICAL EXAMINATION: Blood pressure 130/45 heart rate 96, intubated LUNGS: Clear to auscultation anteriorly HEART: Regular rate and rhythm, S1, S2. No S3. Systolic ejection murmur ABDOMEN: Soft, positive bowel sounds, no organomegaly EXTREMETIES: No edema LAB: Hemoglobin 12.9, potassium 5.0, BUN 65, creatinine 0.93. WBC 35.2 IMPRESSION: 1. Respiratory failure with COPD exacerbation, influenza A and history of CHF with reduced ejection fraction 2. Chronic cardiomyopathy, nonischemic 3. Atrial fibrillation, maintaining sinus mechanism, status post cardioversion 4. Prior history of alcohol intake 5. Streptococcus pneumonia with leukocytosis 6. Prior history of hypertension PLAN: 1. Continue present therapy 2. Start Entresto and follow renal functions 3. Taper amiodarone as planned 4. Continue anticoagulation and beta-sudha 5. Follow WBC Objective - Vital Signs Vital signs: Vital Signs Temp 99.1 F 09/09/24 04:00 Pulse 96 09/09/24 07:00 Resp 19 09/09/24 07:00 BP 143/70 09/09/24 04:00 Pulse Ox 93 L 09/09/24 07:00 FiO2 40 09/09/24 04:06 Intake & Output 09/08/24 09/09/24 09/09/24 18:59 06:59 18:59 Intake Total 1227 1198 Output Total 181 182 Balance -583 -622 Weight 74.6 kg 75.5 kg Intake: IV 697 468 0.9 3cc/ hr a-line 36 39 0.9 3cc/hr cvp 36 39 0.9 at KVO 120 130 Lactated Ringers 1,000 ml 405 260 @ 20 mls/hr IV .Q24H [facility] Rx#:[id number] cefTRIAXone 2 gm In 100 Sodium Chloride 0.9% 50 ml @ 100 mls/hr IVPB Q24HR [facility] Rx#:[id number] Tube Feeding 440 640 Other 90 90 Output: Urine 1809 1819 Other: Voiding Method Indwelling Catheter Indwelling Catheter ABP, PAP, CO, CI - Last Documented Arterial Blood Pressure 130/45 - Labs CBC & Chem 7: 09/09/24 05:00 09/09/24 05:00 Labs: Abnormal Lab Results - Last 24 Hours (Table) 09/02/24 09/08/24 09/08/24 Range/Units 23:52 16:50 17:57 WBC (3.8-10.6) k/uL MCV (80.0-100.0) fL ABG pH (7.35-7.45) ABG pCO2 (35-45) mmHg ABG pO2 (83-108) mmHg ABG HCO3 (21-25) mmol/L ABG Total CO2 (19-24) mmol/L ABG O2 Saturation (94-97) % Potassium (3.5-5.1) mmol/L Chloride (98-107) mmol/L Carbon Dioxide (22-30) mmol/L BUN (7-17) mg/dL Glucose (74-99) mg/dL POC Glucose (mg/dL) 201 H 155 H 183 H (70-110) mg/dL 09/08/24 09/09/24 09/09/24 Range/Units 20:47 00:09 04:54 WBC (3.8-10.6) k/uL MCV (80.0-100.0) fL ABG pH 7.47 H (7.35-7.45) ABG pCO2 61 H (35-45) mmHg ABG pO2 67 L (83-108) mmHg ABG HCO3 44 H* (21-25) mmol/L ABG Total CO2 46 H (19-24) mmol/L ABG O2 Saturation 93.0 L (94-97) % Potassium 5.2 H (3.5-5.1) mmol/L Chloride (98-107) mmol/L Carbon Dioxide (22-30) mmol/L BUN (7-17) mg/dL Glucose (74-99) mg/dL POC Glucose (mg/dL) 123 H (70-110) mg/dL 09/09/24 09/09/24 09/09/24 Range/Units 05:00 05:00 05:37 WBC 35.2 H (3.8-10.6) k/uL MCV 104.9 H (80.0-100.0) fL ABG pH (7.35-7.45) ABG pCO2 (35-45) mmHg ABG pO2 (83-108) mmHg ABG HCO3 (21-25) mmol/L ABG Total CO2 (19-24) mmol/L ABG O2 Saturation (94-97) % Potassium (3.5-5.1) mmol/L Chloride 93 L (98-107) mmol/L Carbon Dioxide 41 H* (22-30) mmol/L BUN 65 H (7-17) mg/dL Glucose 163 H (74-99) mg/dL POC Glucose (mg/dL) 162 H (70-110) mg/dL
--- NOTE | 2024-09-09 07:47 | XR ---
EXAMINATION TYPE: XR chest 1V portable DATE OF EXAM: 09/09/2024 4:03 AM COMPARISON: Multiple radiographs, with the most recent on 09/08/2024 TECHNIQUE: XR chest 1V portable Portable AP radiograph of the chest. CLINICAL INDICATION:Female, 74 years old with history of mechanical ventilation; FINDINGS: Patient is rotated which limits evaluation. Lungs/Pleura: No pneumothorax. Blunting of both costophrenic angles. Persistent diffuse interstitial opacities. Hyperinflation. Heart/mediastinum: Cardiomediastinal silhouette is unremarkable. Atherosclerotic calcifications are seen in the aorta. Musculoskeletal: No acute osseous pathology. Other findings: There is some enteric contrast identified within the stomach. Lines/Tubes: Endotracheal tube with distal tip 3.4 cm above the charles Nasogastric tube with its distal tip and side-port projecting under the diaphragm and projecting over the gastric lumen. Left subclavian approach central venous catheter with distal tip at the superior cavoatrial junction. IMPRESSION: 1. Similar diffuse interstitial changes with small bilateral pleural effusions. 2. Stable support lines and tubes. 3. COPD changes. [facility], , 09/09/2024 7:44 AM
[2024-09-09] MEDS ORDERED: VANCOMYCIN IV PER PHARMACY 1 EACH MISC MISCELLANE PRN (08:13)
[2024-09-09] MEDS: CEFEPIME 2 GM in SODIUM CHLORIDE 0.9% 100 ML IVPB SCH (10:00)
[2024-09-09] MEDS: SACUBITRIL/VALSARTAN 24 MG-26 MG TABLET PO SCH (10:07)
[2024-09-09] MEDS: VANCOMYCIN 1,500 MG in SODIUM CHLORIDE 0.9% 500 ML 500 ML IVPB ONE (10:27)
[2024-09-09] MEDS: ACETAMINOPHEN TAB 325 MG TAB PO PRN (10:36)
[2024-09-09 11:51] LABS: Platelet Count 182 k/uL (150-450)
--- NOTE | 2024-09-09 12:09 | P.PN ---
Subjective Progress Note Date: 09/09/24 This is a 74-year-old female, familiar to my service, patient is known to have history of COPD, severe, history of chronic cor pulmonale, history of nonischemic cardiomyopathy and LV dysfunction as well as history of chronic atrial fibrillation maintained on Coumadin. Patient is also known to have histo ry of moderate mitral regurgitation. Patient is normally on oxygen at 2 L/min, she is normally on diuretics, and she was very seen about a week ago in my office with worsening swelling of her lower extremities, and patient was placed on Aldactone in addition to her Lasix. Her leg swelling improved, however patient came into the ER on 08/28/2024, came in mostly with worsening shortness of breath, cough, wheezing, apparently when she was brought in by EMS she was found to be in tripod position and she was breathing quite heavy. Patient was placed on BiPAP, that seemed to improve her pulmonary status significantly on BiPAP. In the ER, patient was noted to have positive screening for acute influenza A. Last night I was notified about this patient about her shortness of breath and being BiPAP dependent, patient is known to have history of alcohol drinking, and there was also a concern about the patient going into alcohol withdrawal. Patient required some Ativan, admitted to the ICU for close monitoring. I was asked to see her in consultation. In addition to her COPD, patient had positive screening for influenza A. Today I saw the patient in the ICU, she is still on BiPAP 12/5/40%, patient is receiving Lasix, she is also on Aldactone, patient is on Tamiflu, and she is on her usual bronchodilators and on Solu-Medrol. WBC count is 11.9 hemoglobin 12.3 INR is 3.1 electrolytes are normal renal profile is normal troponin is less than 0.012 Evaluated today on 08/31/2024, patient remains in the ICU, patient is on 4 L nasal cannula, last night she was on BiPAP 12/5/40%, patient remains on bronchodilators, Lasix, Coumadin, and she is also on doxycycline. Baseline FEV1 from my office chart is 42% at best. Clearly the patient has severe underlying COPD. Patient is now on nasal cannula, had to be on BiPAP yesterday. Chest x- ray today is suggestive of interstitial edema, underlying pneumonia is felt to be less likely but not entirely ruled out. WBC count is 11.4 hemoglobin is 14.3 INR is 3.3 electrolytes are normal bicarb is 4 0 BUN is 27 creatinine 0.66 The patient is seen today September 01, 2024 in follow-up in the intensive care unit. She is currently sitting up in bed. She is quite restless. Moving from [id number]. She was on BiPAP 12/5 and 40% FiO2. She is currently on 4 L nasal cannula. Her O2 saturation did drop into the 70s when she had her oxygen off. She did require Ativan throughout the night. Recent arterial blood gases revealed a PH of 69, pCO2 79 and a pH of 7.38. She is continued on DuoNeb inhalations, Symbicort, Solu-Medrol. Empiric antibiotics in the form of doxycycline. She remains on IV diuretics. Remains on the CILA protocol. Anticoagulated with warfarin. White count 11.4. Hemoglobin 14.4. Platelets 169. INR 4.8. Sodium 150. Potassium 3.9. Bicarb 45. BUN 39. Creatinine 0.67. Chest x-ray reveals similar moderate interstitial opacities. The patient is seen today September 02, 2024 in follow-up in the intensive care unit. Throughout the night and early this morning she became more obtunded. She was maintained on BiPAP 12/5 and 50% FiO2. PaO2 of 90, pCO2 of 97 and a pH of 7.34. She subsequently had undergone intubation and mechanical ventilatory support. She is currently on assist-control mode at a rate of 20, tidal volume 350, FiO2 100% and a PEEP of 5. Follow-up blood gases revealed a PaO2 of 332, pCO2 75 and a pH of 7.43. The FiO2 was decreased to 40%. White count 11.4. Hemoglobin 14.7. Platelets 173. Sodium 150. Potassium 4.2. Bicarb 47. BUN 59. Creatinine 0.67. Glucose 378. AST 50. ALT 58. Amiodarone at 0.5 mg/h. Her INR was 7.2. She did receive vitamin K. She is requiring norepinephrine at 0.03 mcg/kg/min. Propofol at 15 mcg/kg/min. Continued on DuoNeb inhalations, S ymbicort, doxycycline. Chest x-ray shows evidence of COPD with superimposed pulmonary vascular congestion. Ongoing patchy left basilar and retrocardiac opacity. The patient is seen today September 03, 2024 in follow-up in the intensive care unit. She remains intubated on mechanical ventilator. Currently on assist- control mode with a rate of 20, tidal volume 350, FiO2 40% and a PEEP of 5. Morning blood gases revealed a PaO2 of 83, pCO2 of 80 and a pH of 7.38. She is still having issues with atrial fibrillation with rapid ventricular response. She is on a amiodarone drip at 1 mg/min. Remains on norepinephrine at 3.4 mcg/min. D5W at 125 mL/h. Propofol at 20 mcg/kg/min. Insulin drip at 6 units/h. She is being nourished with vital HP at 30 mL/h with a goal of 38. Chest x-ray reveals diffuse interstitial changes on a background of COPD. Small left pleural effusion. Retrocardiac consolidation/atelectasis. Blood culture reveals no growth. Sputum culture reveals no growth to date. 14.5. Platelets 222. INR 1.6. Sodium 136. Potassium 3.8. Bicarb 45. BUN 70. Creatinine 0 .91. Glucose 213. She remains on DuoNeb and elations, Pulmicort and Perforomist inhalations, IV Solu-Medrol. Remains on warfarin. Remains on Protonix. The patient is seen today September 04, 2024 in follow-up in the intensive care unit. She remains intubated on the mechanical ventilator. Currently on assist- control mode with a rate of 20, tidal volume 350, FiO2 40% and a PEEP of 5. Morning blood gases revealed a PaO2 of 76, pCO2 77 and a pH of 7.36. She remains in atrial fibrillation with a rapid ventricular response and an undergone cardioversion this a.m. with 200 J and is currently back in sinus rhythm. She remains on amiodarone drip at 0.5 mg/min. Heparin drip per weight- based protocol. Sedated with propofol at 30 mcg/kg/min. Norepinephrine at 1 mcg/min. Lactated Ringer's at 75 mL/h. She is being nourished with vital HP at 38 mL/h which is goal. She is continued on DuoNeb and elations, Pulmicort and Perforomist inhalations, IV Solu-Medrol. Protonix for GI prophylaxis. Remains on doxycycline. Sputum culture now revealing Streptococcus pneumoniae. White count 13.8. Hemoglobin 13.9. Platelets 157. INR 1.3. Sodium 132. Potassium 4.9. Bicarb 35. BUN 89. Creatinine 0.95. Glucose 178. The patient is seen today September 05, 2024 in follow-up in the intensive care unit. She remains intubated on the mechanical ventilator. Currently on assist- control mode with a rate of 20, tidal valve 350, FiO2 40% and a PEEP of 5. Morning blood gases revealed a PaO2 of 87, pCO2 of 73 and a pH of 7.38. Chest x-ray reveals cardiomegaly with small left pleural effusion. She is sedated on propofol at 30 mcg/kg/min. Remains on norepinephrine at 2 mcg/min. Continued on a heparin drip per weight-based protocol. Lactated Ringer's at 75 mL/h. She is being nourished with vital HP at 30 mL/h which is goal. She is continued on ceftriaxone. Sputum culture was positive for Klebsiella oxytoca and Streptococcus pneumoniae. Blood culture revealed no growth. Urine culture revealed no growth. White count 16.0. Hemoglobin 12.8. Platelets 147. Sodium 136. Potassium 4.7. Bicarb 40. BUN 84. Creatinine 0.94. Glucose 176. She is maintained on DuoNeb inhalations, Pulmicort and Perforomist inhalations, Solu-Medrol. Protonix for GI prophylaxis. The patient is seen today September 06, 2019 tidal valve 350, FiO2 40% and a PEEP of 5. Morning blood gases revealed a PaO2 of 79, pCO2 of 66 and a pH of 7.43. She is sedated with propofol 25 mcg/kg/min. Currently on norepinephrine at 2.1 mcg/min. Lactated Ringer's at 75 mL/h. Heparin drip per weight-based protocol. She is being nourished with vital HP 30 mL/h which is goal. She is currently in sinus rhythm. Yesterday's daily interruption of sedation the patient became quite hypertensive and tachycardic. Plan for DIS again today. Performance improved Pulmicort inhalations. IV Solu-Medrol. Continued on ceftriaxone. Sputum culture was positive for Klebsiella oxytoca and Streptococcus pneumoniae. Blood culture revealed no growth. Urine culture revealed no growth 0.2. Hemoglobin 12.2. Platelets 157. Sodium 140. Potassium 4.3. Bicarb 40. BUN 76. Creatinine 0.77. The patient is seen today September 07, 2024 in follow-up in the intensive care unit. She remains intubated on the mechanical ventilator and assist-control mode at a rate of 20, tidal valve 350, FiO2 40% and a PEEP of 5. Morning blood gases revealed a PaO2 of 82, pCO2 of 64 and a pH of 7.43. She is on a heparin drip per weight-based protocol. Lactated Ringer's at 75 mL/h. Vital HP at 30 mL/h which is goal. Her propofol has been off for over 24 hours. She remains unresponsive. Chest x-ray reveals similar multifocal interstitial opacities. Endotracheal nasogastric tubes in good position. Left triple-lumen catheter in position. Sputum culture was positive for Klebsiella oxytoca and Streptococcus pneumoniae. Blood and urine cultures revealed no growth. White count 16.8. Hemoglobin 13.7. Platelets 175. Sodium 141. Potassium 5.8. Bicarb 40. BUN 70. Creatinine 0.76. Glucose 100. He is continued on DuoNeb inhalations, Pulmicort and Perforomist inhalations, Solu-Medrol. Protonix for GI proph ylaxis. She remains on Levemir and NovoLog sliding scale. She remains on ceftriaxone. She remains in a positive balance of 1.3 L. On 09/08/2024, the patient is being seen for a follow-up. The patient remains intubated on mechanical ventilator. Noted the patient has been off sedation since 09/05/2024 and the patient is very sluggish in response. This was noted yesterday and a CAT scan of the brain was done that showed no acute abnormalities. On today's evaluation, the patient grimaces only to deep painful stimulation. She is able to give me a slight grab using her right hand. Otherwise, she is not following any commands and she is considerably encephalopathic still. She remains on mechanical ventilator assist-control mode with rate of 20, tidal volume of 350, FiO2 40% with a PEEP of 5. Blood gas from today shows a pH of 7.42 with a pCO2 of 68 and pO2 of 72. She has a left sub clavian triple-lumen catheter. Chest x-ray shows a small left-sided pleural effusion and there is diffuse interstitial changes bilaterally. The patient remains hemodynamically stable. The patient is on lactated Ringer at rate of 75 cc an hour. The patient remains on IV Rocephin. The patient remains on IV Solu-Medrol. Cardiac rhythm is sinus. The patient remains on vital high- protein at rate of 30 cc an hour. The blood work from today shows a WBC count of 17 with a heme of 12.3 and a platelet count of 149. Sodium is at 139, bicarb is at 42 with a BUN of 68 and a creatinine of 0.87. The fluid balance is +1.2 L over the past 24 hours and the patient was given a dose of Lasix yesterday with improvement in urine output. The patient remains on Levemir insulin 30 units daily along with a sign scale coverage. 09/09/2024, the patient is being seen for a follow-up. The patient remains neurologically unchanged. Noted the patient has been off sedation and there is no reasonable neurologic recovery. She grimaces only to deep painful stimulation. No seizure activity. EEG was done it was consistent with encephalopathy and diffuse slowing/metabolic encephalopathy. No seizure activ ity has been noted. The patient remains on mechanical ventilator. She is on assist-control mode with rate of 20, tidal volume of 350, FiO2 of 40% with a PEEP of 5. Blood gas showed a pH of 7.47 with a pCO2 of 61 and pO2 of 67. Chest x-ray remains essentially unchanged. IV fluids at KVO. The patient is a normal sinus rhythm. The patient is eating vital high-protein at rate of 40 cc an hour for enteral feeding nutrition support. The fluid balance is negative to 11 cc over the past 24 hours. She has a left subclavian triple-lumen catheter in place. The white cell count is currently up to 35, no clear source of infection. The patient is broad in terms of antibiotic coverage and she was placed on a combination of cefepime and vancomycin. As noted, the chest x-ray shows diffuse interstitial changes bilaterally with small bilateral pleural effusions and background COPD. Of concern, is her ongoing encephalopathy. In terms of her blood work, the white cell count is at 35 with a hemoglobin 12.5 and platelet count of 185. Sodium is at 140, BUN 65 with a creatinine of 0.9 and a sodium level is at 140 and a potassium level is at 5.0. Calcium level is at 8.4. Neurology consultation was obtained.The patient remains on Levemir insulin for blood sugar control and the patient is currently on Levemir insulin 30 units along with NovoLog 10 units 4 times a day and sliding scale coverage. Blood sugar control is adequate at this point in time. Objective - Vital Signs Vital signs: Vital Signs Temp 99.1 F 09/09/24 04:00 Pulse 120 H 09/09/24 08:25 Resp 19 09/09/24 07:00 BP 143/70 09/09/24 04:00 Pulse Ox 93 L 09/09/24 07:00 FiO2 40 09/09/24 08:12 Intake & Output 09/08/24 09/09/24 09/09/24 18:59 06:59 18:59 Intake Total 1227 1198 Output Total 1810 1820 Balance -583 -622 Weight 74.6 kg 75.5 kg Intake: IV 697 468 0.9 3cc/ hr a-line 36 39 0.9 3cc/hr cvp 36 39 0.9 at KVO 120 130 Lactated Ringers 1,000 ml 405 260 @ 20 mls/hr IV .Q24H [facility] Rx#:[id number] cefTRIAXone 2 gm In 100 Sodium Chloride 0.9% 50 ml @ 100 mls/hr IVPB Q24HR [facility] Rx#:[id number] Tube Feeding 440 640 Other 90 90 Output: Urine 1810 1820 Other: Voiding Method Indwelling Catheter Indwelling Catheter ABP, PAP, CO, CI - Last Documented Arterial Blood Pressure 130/45 - Exam GENERAL EXAM: Intubated, unresponsive, off sedation, 74-year-old female, on the ventilator, in no acute distress. Unable to follow commands. Unable to communicate. Grimaces only to deep painful stimulation. Neurologic function has been essentially unchanged. HEAD: Normocephalic. EYES: Sluggish reaction of pupils, equal size. NOSE: Clear with pink turbinates. THROAT: Oral endotracheal and gastric tube secured in place. No erythema or exudates. NECK: No masses, no JVD. CHEST: No chest wall deformity. Left subclavian triple-lumen catheter in place. LUNGS: Equal air entry with few scattered rhonchi. CVS: S1 and S2 normal with no audible murmur, regular rhythm. ABDOMEN: No hepatosplenomegaly, normal bowel sounds, no guarding or rigidity. SPINE: No scoliosis or deformity SKIN: Areas of ecchymosis and bruising. CENTRAL NERVOUS SYSTEM: Sedated, tone is normal in all 4 extremities. The patient remains encephalopathic. She grimaces to painful stimulation. She has been off sedation for more than 72 hours. EXTREMITIES: Right radial arterial line in place. There is no peripheral edema. Peripheral pulses are intact. - Labs CBC & Chem 7: 09/09/24 05:00 09/09/24 05:00 Labs: Abnormal Lab Results - Last 24 Hours (Table) 09/08/24 09/08/24 09/08/24 Range/Units 16:50 17:57 20:47 WBC (3.8-10.6) k/uL MCV (80.0-100.0) fL ABG pH (7.35-7.45) ABG pCO2 (35-45) mmHg ABG pO2 (83-108) mmHg ABG HCO3 (21-25) mmol/L ABG Total CO2 (19-24) mmol/L ABG O2 Saturation (94-97) % Potassium 5.2 H (3.5-5.1) mmol/L Chloride (98-107) mmol/L Carbon Dioxide (22-30) mmol/L BUN (7-17) mg/dL Glucose (74-99) mg/dL POC Glucose (mg/dL) 155 H 183 H (70-110) mg/dL 09/09/24 09/09/24 09/09/24 Range/Units 00:09 04:54 05:00 WBC 35.2 H (3.8-10.6) k/uL MCV 104.9 H (80.0-100.0) fL ABG pH 7.47 H (7.35-7.45) ABG pCO2 61 H (35-45) mmHg ABG pO2 67 L (83-108) mmHg ABG HCO3 44 H* (21-25) mmol/L ABG Total CO2 46 H (19-24) mmol/L ABG O2 Saturation 93.0 L (94-97) % Potassium (3.5-5.1) mmol/L Chloride (98-107) mmol/L Carbon Dioxide (22-30) mmol/L BUN (7-17) mg/dL Glucose (74-99) mg/dL POC Glucose (mg/dL) 123 H (70-110) mg/dL 09/09/24 09/09/24 Range/Units 05:00 05:37 WBC (3.8-10.6) k/uL MCV (80.0-100.0) fL ABG pH (7.35-7.45) ABG pCO2 (35-45) mmHg ABG pO2 (83-108) mmHg ABG HCO3 (21-25) mmol/L ABG Total CO2 (19-24) mmol/L ABG O2 Saturation (94-97) % Potassium (3.5-5.1) mmol/L Chloride 93 L (98-107) mmol/L Carbon Dioxide 41 H* (22-30) mmol/L BUN 65 H (7-17) mg/dL Glucose 163 H (74-99) mg/dL POC Glucose (mg/dL) 162 H (70-110) mg/dL Assessment and Plan Plan: Acute on chronic hypoxic respiratory failure secondary to a COPD exacerbation, systolic CHF exacerbation, influenza A. The patient required intubation and mechanical ventilatory support on 09/02/2024. The patient remains intubated on mechanical ventilator. Chest x-ray shows diffuse interstitial pattern and small left-sided pleural effusion. Adequate oxygenation and ventilation. Neurologically, the patient has diminished level of consciousness and the patient has been off sedation since 09/05/2024. CAT scan of the brain done on 09/07/2024 showed no acute abnormalities. EEG was done and the patient is showing diffuse encephalopathy and diffuse slowing. No seizure activity has been noted. Acute influenza A, completed a course of Tamiflu Acute exacerbation of COPD, remains on bronchodilators and systemic steroids Acute on chronic systolic congestive heart failure. The patient has impairment of the LV function with an ejection fraction of 35%, nonischemic cardiomyopathy with moderate degree of mitral regurgitation. Bilateral pneumonia, likely superinfection following influenza A infection and the patient has positive cultures with Streptococcus pneumonia and Klebsiella oxytoca. The patient remains on broad-spectrum antibiotics and the patient is currently on a combination of cefepime and vancomycin Leukocytosis, with further rise in the white cell count. Antibiotic modific ation has been performed. Atrial fibrillation with rapid ventricular response, the patient has received cardioversion on 09/07/2024 and the patient is back in normal sinus rhythm.The patient is currently on amiodarone 4 mg p.o. twice a day and the patient is also on anticoagulation with Eliquis 5 mg p.o. twice a day. The patient is also on metoprolol 50 mg twice daily. Cardiac rhythm is sinus as stated. Hemodynamically stable and the patient is currently off pressors. Alcoholism Acute metabolic encephalopathy secondary to above. The patient remains to have diminished level of consciousness. The patient has been off sedation since 09/05/2024 and the patient had a follow-up CAT scan of the brain done on 09/07/2024 that showed no acute abnormalities. EEG showed encephalopathy and diffuse slowing. Transaminitis, likely secondary to alcoholism Moderate mitral regurgitation Nonischemic cardiomyopathy, EF of 35% Hypertension Dyslipidemia Hypothyroidism Plan: Continue ventilator support, no changes Avoid any form of sedation Monitor mental status Hold anticoagulation in anticipation for a lumbar puncture should the patient's mental status remain unchanged. Neurology input is appreciated IV fluids are currently at KVO Continue broad-spectrum antibiotics and the patient is currently on a combination of cefepime and vancomycin. Monitor the white cell count Obtain 2 sets of blood cultures Obtain urine cultures continue diuresis with IV Lasix 40 mg every 12 hours Continue bronchodilators Continue steroids Continue combination of amiodarone, metoprolol and anticoagulation will be placed on hold Continue vital HP for nutritional support We will continue to follow Condition remains quite critical and this evaluation was done in 35 minutes. Evaluation was done in the intensive care unit. Time with Patient: Greater than 30
[2024-09-09 16:34] LABS: Glucose,Whole Blood 187 mg/dL (70-110)
--- NOTE | 2024-09-09 16:38 | P.PN ---
Subjective Progress Note Date: 09/09/24 Hospital Course: Patient is a 74-year-old female with past medical history significant for COPD, CHF, atrial fibrillation on Coumadin, and hypertension presents today for 1 week worsening of breathing as well as significant cough. She wears 2 L of oxygen at night but says that she has had to wear 2 L 24/7 for the past week. About 5 days ago she saw Dr. Lorenzo and he started her on spironolactone due to leg swelling and fluid retention. She states that the leg swelling has improved since. She has experienced COPD exacerbations like this before. Of note her granddaughter had the flu last week. Treated for management of acute on chronic hypoxic respiratory failure secondary to COPD exacerbation, influenza A, acute HFrEF exacerbation. Cardiology consulted. Started on IV Lasix, Coumadin continued, TTE ordered. Severe LV systolic dysfunction with EF 35%, severe pulmonary hypertension. Added Farxiga to her current medical regimen. Elevated LFTs, bilirubin, abdominal ultrasound was obtained and showed no acute finding, negative Underwood sign, adherent gallstone versus small polyp measuring 3 mm. Nonobstructing renal calculi on the right. 08/29 in the evening patient became progressively short of breath, started hallucinating. She was placed on BiPAP, given her history of alcohol drinking, she was started on CIWA with Ativan, transferred to ICU for close monitoring. Patient became obtunded and was intubated on 09/02. Went into A-Fib with RVR, successfully cardioverted on 09/03. Sedation holidays 09/05: Patient became tachypneic,reattempt 09/06-patient is off sedation since 09/06 10:30, AM on 09/07 patient is nonresponsive, no withdrawal to pain, verbal stimuli, horizontal nystagmus noted, pupils are reactive. Patient required 2 doses of Dilaudid 0.[address] brain ordered. No pressor support required 09/08: Patient is minimally responsive today, tries to open eyes, does not squeeze hands, does not move the toes. CT brain showed no acute abnormalities, EEG ordered, neurology consulted. EEG showed background slowing moderate to severe degree, CT head with no acute process. Plan for possible LP, patient is still minimally responsive, Eliquis on hold in anticipation of LP. Overnight started spiking fever, leukocytosis worsened, ordered repeat blood cultures, started patient on broad-spectrum antibiotics with vancomycin and cefepime SOT 09/09. Subjective: Patient is intubated Vitals Signs Reviewed. General: [Ill-appearing, intubated, Derm: [warm], [dry], multiple bruises Head: [atraumatic], [normocephalic], [symmetric] Eyes: [EOMI], [no lid lag], [anicteric sclera] Mouth: [no lip lesion], [mucus membranes moist] Cardiovascular: [S1S2 reg], [no murmur] Lungs diminished breath sounds bilaterally Abdominal: [soft], [ nontender to palpation], [no guarding], [no appreciable organomegaly] Ext: [no gross muscle atrophy], [upper extremity swelling, improved], [no contractures] Neuro: Pupils reactive, patient reacts to verbal stimuli, turns head on voice, does not squeeze hands Psych: [Intubated, Data Reviewed Today: Pertinent Labs: Worsening leukocytosis 35.2, platelet count and hemoglobin normal and stable, ABG with pH of 7.47, pCO2 61, pO2 67, sodium and potassium normal, bicarb 41 blood sugar has been controlled Chest x-ray: Multifocal interstitial opacities Assessment and Plan: Atrial fibrillation with RVR and Supratherapeutic INR Status post cardioversion 09/03. Started on amiodarone 400 mg p.o. twice daily Continue Metoprolol 50 mg PO BID. Started on Eliquis 5 twice daily, currently on hold in anticipation of LP Acute on chronic hypoxic respiratory failure multifactorial, secondary to acute influenza A, bacterial pneumonia Klebsiella oxytoca Streptococcus pneumonia, acute COPD exacerbation, acute on chronic HFrEF requiring intubation Sepsis, undetermined source in the ventilated patient decreased level of consciousness Acute toxic metabolic encephalopathy secondary to the above Severe pulmonary hypertension Acute COPD exacerbation Anxiety Acute on chronic systolic heart failure Severe pulmonary hypertension Moderate mitral regurgitation -Laisx 20 IV twice daily, Aldactone, Losartan, Farxiga on hold. - IV Solu-Medrol 40 mg every 12 hours. -Doxycycline switched to Rocephin 2g IV QD on 09/04/2024., Antibiotics broadened to cefepime 2 g twice daily and vancomycin pharmacy to dose due to spiking fever and worsening leukocytosis, blood cultures and sputum cultures -Continue with DuoNeb Q4H scheduled and Q2N PRN. -Continue Pulmicort 1 mg INH BID and Performist 20 mcg INH BID. -Cardiology on board. [employer]oc Director Combat Operations Officer on board -Discussed with RN, project management professor -CT brain for unresponsiveness was negative -EEG with moderate to severe background slowing, neurology following Hyperkalemia, resolved: Recheck potassium ordered,, Lokelma given09/08 Constipation: Senna scheduled, added lactulose History of alcohol abuse Haldol 4 mg IV Q6H PRN agitation CIWA protocol with Ativan PRN IV thiamine 100 daily Hypertension not hypotensive anymore, Levophed stopped 09/06 814 DVT prophylaxis: Heparin drip Anticipated discharge pending Clinical course Objective - Vital Signs Vital signs: Vital Signs Temp 99.6 F 09/09/24 15:00 Pulse 85 09/09/24 16:05 Resp 20 09/09/24 16:00 BP 143/70 09/09/24 16:00 Pulse Ox 93 L 09/09/24 16:00 FiO2 40 09/09/24 16:00 Intake & Output 09/08/24 09/09/24 09/09/24 18:59 06:59 18:59 Intake Total 1227 1198 1464 Output Total 1810 1820 940 Balance -583 -622 524 Weight 74.6 kg 75.5 kg Intake: IV 697 468 324 0.9 3cc/ hr a-line 36 39 27 0.9 3cc/hr cvp 36 39 27 0.9 at KVO 120 130 90 Lactated Ringers 1,000 ml 405 260 180 @ 20 mls/hr IV .Q24H [facility] Rx#:[id number] cefTRIAXone 2 gm In 100 Sodium Chloride 0.9% 50 ml @ 100 mls/hr IVPB Q24HR [facility] Rx#:[id number] Intake, IV Titration 600 Amount Cefepime 2 gm In Sodium 100 Chloride 0.9% 100 ml @ 25 mls/hr IVPB Q12HR [facility] Rx #:[id number] Vancomycin 1,500 mg In 500 Sodium Chloride 0.9% 500 ml 500 ml @ 167 mls/hr IVPB ONCE ONE Rx#: [id number] Tube Feeding 440 640 450 Other 90 90 90 Output: Urine 1810 1820 940 Other: Voiding Method Indwelling Catheter Indwelling Catheter Indwelling Catheter ABP, PAP, CO, CI - Last Documented Arterial Blood Pressure 153/54 - Labs CBC & Chem 7: 09/09/24 05:00 09/09/24 05:00 Labs: Abnormal Lab Results - Last 24 Hours (Table) 09/08/24 09/08/24 09/08/24 Range/Units 16:50 17:57 20:47 WBC (3.8-10.6) k/uL MCV (80.0-100.0) fL Neutrophils # (1.3-7.7) k/uL Lymphocytes # (1.0-4.8) k/uL ABG pH (7.35-7.45) ABG pCO2 (35-45) mmHg ABG pO2 (83-108) mmHg ABG HCO3 (21-25) mmol/L ABG Total CO2 (19-24) mmol/L ABG O2 Saturation (94-97) % Potassium 5.2 H (3.5-5.1) mmol/L Chloride (98-107) mmol/L Carbon Dioxide (22-30) mmol/L BUN (7-17) mg/dL Glucose (74-99) mg/dL POC Glucose (mg/dL) 155 H 183 H (70-110) mg/dL 09/09/24 09/09/24 09/09/24 Range/Units 00:09 04:54 05:00 WBC 35.2 H (3.8-10.6) k/uL MCV 104.9 H (80.0-100.0) fL Neutrophils # 33.9 H (1.3-7.7) k/uL Lymphocytes # 0.2 L (1.0-4.8) k/uL ABG pH 7.47 H (7.35-7.45) ABG pCO2 61 H (35-45) mmHg ABG pO2 67 L (83-108) mmHg ABG HCO3 44 H* (21-25) mmol/L ABG Total CO2 46 H (19-24) mmol/L ABG O2 Saturation 93.0 L (94-97) % Potassium (3.5-5.1) mmol/L Chloride (98-107) mmol/L Carbon Dioxide (22-30) mmol/L BUN (7-17) mg/dL Glucose (74-99) mg/dL POC Glucose (mg/dL) 123 H (70-110) mg/dL 0209/09/24 09/09/24 Range/Units 05:00 05:37 16:32 WBC (3.8-10.6) k/uL MCV (80.0-100.0) fL Neutrophils # (1.3-7.7) k/uL Lymphocytes # (1.0-4.8) k/uL ABG pH (7.35-7.45) ABG pCO2 (35-45) mmHg ABG pO2 (83-108) mmHg ABG HCO3 (21-25) mmol/L ABG Total CO2 (19-24) mmol/L ABG O2 Saturation (94-97) % Potassium (3.5-5.1) mmol/L Chloride 93 L (98-107) mmol/L Carbon Dioxide 41 H* (22-30) mmol/L BUN 65 H (7-17) mg/dL Glucose 163 H (74-99) mg/dL POC Glucose (mg/dL) 162 H 187 H (70-110) mg/dL
[2024-09-09] MEDS: SODIUM CHLORIDE 0.9% 500 ML 500 ML IV ONE (18:55)
[2024-09-09] MEDS: SODIUM CHLORIDE 0.9% 1,000 ML IV ONE (19:44)
[2024-09-09] MEDS: CHLORHEXIDINE GLUCONATE 15 ML CUP MUCOUS MEM SCH (21:18)
[2024-09-09 23:18] LABS: Glucose,Whole Blood 199 mg/dL (70-110)
[2024-09-10] MEDS: MORPHINE SULFATE 2 MG/ML SYRINGE IVP PRN (01:38)
[2024-09-10] MEDS: INSULIN ASPART (NovoLOG) 100 UNIT/ML VIAL SQ SCH ×2 (01:47→07:33)
[2024-09-10 04:43] LABS: HCT 40.3 % (34.0-46.0); Hypochromasia Slight; MCH 34.2 pg (25.0-35.0); MCHC 32.3 g/dL (31.0-37.0); MCV 105.9 fL (80.0-100.0); Macrocytosis Moderate; Mean Platelet Volume 9.4; Platelet Count 188 k/uL (150-450); RDW 14.1 % (11.5-15.5); WBC 24.3 k/uL (3.8-10.6)
[2024-09-10 05:11] LABS: Glucose,Whole Blood 154 mg/dL (70-110)
[2024-09-10 05:14] LABS: ABG Base Excess 11.9 mmol/L; ABG HCO3 39 mmol/L (21-25); ABG Oxygen Saturation 93.8 % (94-97); ABG PCO2 58 mmHg (35-45); ABG PH 7.43 (7.35-7.45); ABG PO2 72 mmHg (83-108); ABG TCO2 40 mmol/L (19-24)
[2024-09-10 05:16] LABS: Allen Test Performed? no
[2024-09-10 05:42] LABS: African American GFR (CKD) >90 (>60 ml/min/1.73 sqM); Blood Urea Nitrogen 61 mg/dL (7-17); Calcium 8.3 mg/dL (8.4-10.2); Chloride 99 mmol/L (98-107); Glucose 166 mg/dL (74-99); Non-African American GFR(CKD) 87 (>60 ml/min/1.73 sqM); Potassium 4.8 mmol/L (3.5-5.1); Sodium 139 mmol/L (137-145)
[2024-09-10 05:49] LABS: Anion Gap 4 mmol/L; Carbon Dioxide 36 mmol/L (22-30)
--- NOTE | 2024-09-10 07:35 | XR ---
EXAMINATION TYPE: XR chest 1V portable DATE OF EXAM: 09/10/2024 5:26 AM COMPARISON: 09/09/2024 CLINICAL INDICATION: Female, 74 years old with history of mechanical ventilation, difficulty breathin g TECHNIQUE: XR chest 1V portable view(s) obtained. FINDINGS: The heart size is prominent. The pulmonary vasculature is prominent. Mild diffuse increased lung markings are present bilaterally. Consider pulmonary edema. Slightly more focal infiltrate is above the right diaphragm may be some atelectasis. IMPRESSION: 1. Mild diffuse increased lung markings with prominent heart pulmonary vascular markings. Correlate f or volume overload and congestive heart failure. [facility], , 09/10/2024 7:32 AM
--- NOTE | 2024-09-10 07:36 | CA ---
Transthoracic Echo Report Name: Emilia Woodward Age: 74 Gender: F : 1950 Exam Date: 09/09/2024 11:08 Exam Location: [facility] Ht (in): 63 Wt (lb): 166 Ordering Physician: Ceasar Sánchez MD Attending/Referring Phys: Rivet Sticker Nithya Reynolds RDCS Procedure CPT: Indications: last Ef 35% h/o cardioversion Cardiac Hx: Limited, last echo 08/29/24 Technical Quality: Technically difficult study Contrast 1: Definity Total Dose (mL): 3 Contrast 2: Total Dose (mL): MEASUREMENTS (Male / Female) Normal Values 2D ECHO LV Diastolic Diameter PLAX 6.3 cm 4.2 - 5.9 / 3.9 - 5.3 cm LV Systolic Diameter PLAX 4.6 cm IVS Diastolic Thickness 0.8 cm 0.6 - 1.0 / 0.6 - 0.9 cm LVPW Diastolic Thickness 0.7 cm 0.6 - 1.0 / 0.6 - 0.9 cm LV Relative Wall Thickness 0.2 LVOT Diameter 2.0 cm LV Diastolic Volume MOD BP 179.5 cm??? 67 - 155 / 56 - 104 cm??? LV Systolic Volume MOD BP 93.5 cm??? 22 - 58 / 19 - 49 cm??? LV Ejection Fraction MOD BP 47.9 % >= 55 % LV Cardiac Index MOD BP 3989.6 cm???/min???m??? LV Diastolic Volume MOD 4C 217.0 cm??? LV Systolic Volume MOD 4C 117.1 cm??? LV Ejection Fraction MOD 4C 46.0 % LV Cardiac Index MOD 4C 4636.5 cm???/min???m??? LV Diastolic Length 4C 8.6 cm LV Systolic Length 4C 6.9 cm LV Diastolic Volume MOD 2C 132.7 cm??? LV Systolic Volume MOD 2C 70.2 cm??? LV Ejection Fraction MOD 2C 47.1 % LV Cardiac Index MOD 2C 2902.5 cm???/min???m??? LV Diastolic Length 2C 7.7 cm LV Systolic Length 2C 6.4 cm DOPPLER TR Peak Velocity 313.1 cm/s TR Peak Gradient 39.2 mmHg Right Atrial Pressure 15.0 mmHg Pulmonary Artery Systolic Pressu 54.2 mmHg Right Ventricular Systolic Press 54.2 mmHg PV Peak Velocity 81.3 cm/s PV Peak Gradient 2.6 mmHg PV Mean Velocity 43.9 cm/s PV Mean Gradient 0.8 mmHg PV Velocity Time Integral 12.0 cm FINDINGS Left Ventricle Left ventricular ejection fraction is estimated at 40 to 45%. Severely increased left ventricular diastolic diameter. Severely increased left ventricular diastolic volume. Severely increased left ventricular systolic volume. Mildly decreased left ventricular ejection fraction. Right Ventricle Right ventricular dilatation. Moderately reduced right ventricular global systolic function. Moderate to severe pulmonary hypertension. Right Atrium Right atrial dilatation. Left Atrium Left atrial dilatation. Mitral Valve Structurally normal mitral valve. Mild mitral regurgitation. Aortic Valve Trileaflet aortic valve. Tricuspid Valve Structurally normal tricuspid valve. No tricuspid stenosis. [id number] tricuspid regurgitation. Pulmonic Valve Structurally normal pulmonic valve. No pulmonic stenosis. Trace pulmonic regurgitation. Pericardium No pericardial effusion. Aorta Aortic root and proximal ascending aorta not well visualized. CONCLUSIONS Technically difficult study for interpretation Impaired LV function with EF between 40 to 45% and Moderate to severe pulmonary hypertension. Dilated RV No pericardial effusion Previewed by: Dr. Dheeraj Negron MD (Electronically Signed) Final Date: 10 September 2024 07:36
[2024-09-10] MEDS: VANCOMYCIN 1,250 MG in SODIUM CHLORIDE 0.9% 250 ML IVPB SCH (08:22)
--- NOTE | 2024-09-10 08:23 | P.PN ---
Subjective Progress Note Date: 09/10/24 PROGRESS NOTE The patient is a 74-year-old female with known history of COPD, nonischemic cardiomyopathy, permanent atrial fibrillation with attempted cardioversion in May 2023 who presented with progressive dyspnea and worsening peripheral edema, was diagnosed with influenza A infection. She had worsening of her respiratory status requiring mechanical ventilation. She remains intubated, good urine output and tolerating feeding. She has no evidence of malignant arrhythmia. Her echocardiogram and admission showed an ejection fraction of 35% with mild to moderate tricuspid regurgitation and severe pulmonary hypertension that has been documented in the past. She is in sinus mechanism at this time. She underwent CT scan of the head that showed no evidence of acute events. September 09: The patient remains intubated, not following verbal command. She is in sinus mechanism on no vasopressors. Her urinary output has been good. She has been evaluated by the neurology service for her mental status and felt probably to have metabolic encephalopathy. There is no evidence of recurrent atrial fibrillation. She continues to be in sinus mechanism. September 10: The patient remains intubated and sedated, in sinus mechanism. Hemodynamically stable. She had an echocardiogram that showed an ejection fraction of 40 to 45% with moderate severe pulmonary hypertension and dilated right ventricle and mild to moderate tricuspid regurgitation. She remains unresponsive and is being evaluated by the neurology service Medications: Amiodarone 400 mg twice a day, insulin, metoprolol tartrate 50 mg twice a day, Solu-Medrol, thiamine Lasix 20 mg IV every 12 hours Entresto 24-26 mg twice a da y. Her anticoagulation is on hold for possible lumbar puncture PHYSICAL EXAMINATION: Blood pressure 120/60 heart rate 80, intubated LUNGS: Clear to auscultation anteriorly HEART: Regular rate and rhythm, S1, S2. No S3. Systolic ejection murmur ABDOMEN: Soft, positive bowel sounds, no organomegaly EXTREMETIES: No edema LAB: Hemoglobin 13, potassium 4.8, BUN 61, creatinine 0.70. WBC 24.3 IMPRESSION: 1. Respiratory failure with COPD exacerbation, influenza A and history of CHF with reduced ejection fraction 2. Chronic cardiomyopathy, nonischemic 3. Atrial fibrillation, maintaining sinus mechanism, status post cardioversion 4. Prior history of alcohol intake 5. Streptococcus pneumonia with leukocytosis 6. Prior history of hypertension PLAN: 1. Continue present therapy 2. Start Entresto and follow renal functions 3. Decrease amiodarone to 200 mg twice daily 4. Resume anticoagulation after lumbar puncture 5. Await input of neurology regarding mental status Objective - Vital Signs Vital signs: Vital Signs Temp 99.3 F 09/10/24 00:00 Pulse 84 09/10/24 08:16 Resp 22 09/10/24 07:00 BP 121/61 09/10/24 07:00 Pulse Ox 92 L 09/10/24 07:00 FiO2 40 09/10/24 08:11 Intake & Output 09/09/24 09/10/24 09/10/24 18:59 06:59 18:59 Intake Total 1636 3332 96 Output Total 1265 1815 100 Balance 371 1517 -4 Weight 74 kg Intake: IV 396 1972 36 0.9 3cc/ hr a-line 33 36 3 0.9 3cc/hr cvp 33 36 3 0.9 at KVO 110 60 10 Cefepime 2 gm In Sodium 100 Chloride 0.9% 100 ml @ 25 mls/hr IVPB Q12HR [facility] Rx #:[id number] Lactated Ringers 1,000 ml 220 240 20 @ 20 mls/hr IV .Q24H [facility] Rx#:[id number] Sodium Chloride 0.9% 1, 1000 000 ml @ 999 mls/hr IV . Q1H1M [facility] Rx#:[id number] Sodium Chloride 0.9% 500 500 ml 500 ml @ 999 mls/hr IV .Q31M [facility] Rx#:[id number] Intake, IV Titration 600 500 Amount Cefepime 2 gm In Sodium 100 Chloride 0.9% 100 ml @ 25 mls/hr IVPB Q12HR [facility] Rx #:[id number] Sodium Chloride 0.9% 500 500 ml 500 ml @ 999 mls/hr IV .Q31M [facility] Rx#:[id number] Vancomycin 1,500 mg In 500 Sodium Chloride 0.9% 500 ml 500 ml @ 167 mls/hr IVPB ONCE [facility] Rx#: [id number] Tube Feeding 550 710 60 Other 90 150 Output: Urine 1265 1815 100 Other: Voiding Method Indwelling Catheter Indwelling Catheter ABP, PAP, CO, CI - Last Documented Arterial Blood Pressure 126/42 - Labs CBC & Chem 7: 09/10/24 04:27 09/10/24 04:27 Labs: Abnormal Lab Results - Last 24 Hours (Table) 09/09/24 09/09/24 09/09/24 Range/Units 05:00 05:00 16:32 WBC (3.8-10.6) k/uL MCV (80.0-100.0) fL Neutrophils # 33.9 H (1.3-7.7) k/uL Lymphocytes # 0.2 L (1.0-4.8) k/uL ABG pCO2 (35-45) mmHg ABG pO2 (83-108) mmHg ABG HCO3 (21-25) mmol/L ABG Total CO2 (19-24) mmol/L ABG O2 Saturation (94-97) % Chloride 93 L (98-107) mmol/L Carbon Dioxide 41 H* (22-30) mmol/L BUN 65 H (7-17) mg/dL Glucose 163 H (74-99) mg/dL POC Glucose (mg/dL) 187 H (70-110) mg/dL Calcium (8.4-10.2) mg/dL 09/09/24 09/10/24 09/10/24 Range/Units 23:16 04:27 04:27 WBC 24.3 H (3.8-10.6) k/uL MCV 105.9 H (80.0-100.0) fL Neutrophils # (1.3-7.7) k/uL Lymphocytes # (1.0-4.8) k/uL ABG pCO2 (35-45) mmHg ABG pO2 (83-108) mmHg ABG HCO3 (21-25) mmol/L ABG Total CO2 (19-24) mmol/L ABG O2 Saturation (94-97) % Chloride (98-107) mmol/L Carbon Dioxide 36 H (22-30) mmol/L BUN 61 H (7-17) mg/dL Glucose 166 H (74-99) mg/dL POC Glucose (mg/dL) 199 H (70-110) mg/dL Calcium 8.3 L (8.4-10.2) mg/dL 09/10/24 09/10/24 Range/Units 05:09 05:10 WBC (3.8-10.6) k/uL MCV (80.0-100.0) fL Neutrophils # (1.3-7.7) k/uL Lymphocytes # (1.0-4.8) k/uL ABG pCO2 58 H (35-45) mmHg ABG pO2 72 L (83-108) mmHg ABG HCO3 39 H (21-25) mmol/L ABG Total CO2 40 H (19-24) mmol/L ABG O2 Saturation 93.8 L (94-97) % Chloride (98-107) mmol/L Carbon Dioxide (22-30) mmol/L BUN (7-17) mg/dL Glucose (74-99) mg/dL POC Glucose (mg/dL) 154 H (70-110) mg/dL Calcium (8.4-10.2) mg/dL Microbiology - Last 24 Hours (Table) 09/09/24 12:34 Gram Stain - Preliminary Sputum
--- NOTE | 2024-09-10 10:12 | CDI ---
Documentation Clarification Form Date: 09/10/2024 09:29:24 AM From: Nelida Huertas RN CCDS Phone: [phone] Admit Date: 08/28/2024 08:52:00 PM Patient Name: Emilia Woodward Visit Number: [id number] Discharge Date: ATTENTION: The Clinical Documentation Specialists (CDI) and [facility] Coding Staff appreciate your assistance in clarifying documentation. Please respond to the clarification below the line at the bottom and electronically sign. The CDI & [facility] Coding staff will review the response and follow-up if needed. Please note: Queries are made part of the Legal Health Record. If you have any questions, please contact the author of this message via ITS. Doctor: Jennifer Bello Conflicting documentation has been found in the medical record. As attending physician, please provide clarification. Sepsis, criteria met: Tachycardic, tachypneic, lactic acidosis on admission. 08/28, HP Patient met sepsis criteria, likely caused by acute on chronic respiratory distress, nonseptic. 08/29 & 08/30, Medicine note. Sepsis, undetermined source in the ventilated patient 09/09, Medicine note. History/Risk Factors: 74 year old female presents to the ED after having shortness of breath and worsening breathing with cough for one week. The patient wears 2 L of oxygen at night. Medical History: COPD, HTN, Atrial Fibrillation and CHF. 08/28, HP. Clinical Indicators: VSS, 08/28: B/P 142/82; HR 105; RR 45; Temp 101. F; SpO2 99% Bipap FiO2 100 LAB, 08/28: Wbc 10.2, Neutrophils 8.9, Lactic 3.5. Serology, 08/28: Influenza A Detected. CXR, 08/28: Cardiomegaly with prominent pulmonary vascular markings and increased lung markings. Treatment: 08/28 Tylenol po x 1; 08/28 Atrovent Inhalation x 1, 08/28 Soulmedrol IV x 1; 08/28 Motrin po x 1; 08/28 Magnesium IVPB Q1H x 2 bags, 08/29 Solumedrol IV Q6H, Duoneb inhalation QID CARLY, 08/29 09/02 Symbicort, 08/29 Spiriva Inhalatoin daily, 08/31 - Vibramycin po bid; 09/01 09/04 Doxycycline IVPB Q12h Please clarify which diagnosis is most appropriate: [ x ] Sepsis POA related to ___ventilator associated pneumonia, Gr negative bacteria in sputum [ ] Sepsis not POA related to [ ] Sepsis Ruled out [ ] Other (please specify) [ ] Unable to determine (Template Last Revised: September 2020) MTDD
[2024-09-10 11:49] LABS: Glucose,Whole Blood 139 mg/dL (70-110)
[2024-09-10] MEDS: AMIODARONE 200 MG TAB PO SCH (12:52)
--- NOTE | 2024-09-10 14:54 | P.PN ---
Subjective Progress Note Date: 09/10/24 Hospital Course: Patient is a 74-year-old female with past medical history significant for COPD, CHF, atrial fibrillation on Coumadin, and hypertension presents today for 1 week worsening of breathing as well as significant cough. She wears 2 L of oxygen at night but says that she has had to wear 2 L 24/7 for the past week. About 5 days ago she saw Dr. Lorenzo and he started her on spironolactone due to leg swelling and fluid retention. She states that the leg swelling has improved since. She has experienced COPD exacerbations like this before. Of note her granddaughter had the flu last week. Treated for management of acute on chronic hypoxic respiratory failure secondary to COPD exacerbation, influenza A, acute HFrEF exacerbation. Cardiology consulted. Started on IV Lasix, Coumadin continued, TTE ordered. Severe LV systolic dysfunction with EF 35%, severe pulmonary hypertension. Added Farxiga to her current medical regimen. Elevated LFTs, bilirubin, abdominal ultrasound was obtained and showed no acute finding, negative Underwood sign, adherent gallstone versus small polyp measuring 3 mm. Nonobstructing renal calculi on the right. 08/29 in the evening patient became progressively short of breath, started hallucinating. She was placed on BiPAP, given her history of alcohol drinking, she was started on CIWA with Ativan, transferred to ICU for close monitoring. Patient became obtunded and was intubated on 09/02. Went into A-Fib with RVR, successfully cardioverted on 09/03. Sedation holidays 09/05: Patient became tachypneic,reattempt 09/06-patient is off sedation since 09/06 10:30, AM on 09/07 patient is nonresponsive, no withdrawal to pain, verbal stimuli, horizontal nystagmus noted, pupils are reactive. Patient required 2 doses of Dilaudid 0.[address] brain ordered. No pressor support required 09/08: Patient is minimally responsive today, tries to open eyes, does not squeeze hands, does not move the toes. CT brain showed no acute abnormalities, EEG ordered, neurology consulted. EEG showed background slowing moderate to severe degree, CT head with no acute process. Plan for possible LP, patient is still minimally responsive, Eliquis on hold in anticipation of LP. 09/09Overnight started spiking fever, leukocytosis worsened, ordered repeat blood cultures, started patient on broad-spectrum antibiotics with vancomycin and cefepime SOT 09/09. 09/10, no changes in mental status, patient is minimally responsive to painful stimuli, no purposeful extremity movement, cannot open eyes, does not follow commands. Amiodarone decreased to 20 twice daily, continued on Entresto, Eliquis holding in anticipation of lumbar puncture. Afebrile since 09/09 2 p.m. Sputum cultures gram-negative bacilli Subjective: Patient is intubated Vitals Signs Reviewed. General: [Ill-appearing, intubated, Derm: [warm], [dry], multiple bruises Head: [atraumatic], [normocephalic], [symmetric] Eyes: [EOMI], [no lid lag], [anicteric sclera] Mouth: [no lip lesion], [mucus membranes moist] Cardiovascular: [S1S2 reg], [no murmur] Lungs diminished breath sounds bilaterally Abdominal: [soft], [ nontender to palpation], [no guarding], [no appreciable org anomegaly] Ext: [no gross muscle atrophy], [upper extremity swelling, improved], [no contractures] Neuro: Pupils reactive, patient reacts to verbal stimuli, turns head on voice, does not squeeze hands Psych: [Intubated, Data Reviewed Today: Pertinent Labs: Leukocytosis improving 24.3, normal and stable hemoglobin, platelet count, ABG with normal pH 7.43, pCO2 58, PaO2 72, sodium and potassium normal today, creatinine normal and stable, blood glucose is controlled. Chest x-ray: Multifocal interstitial opacities, prominent pulmonary vasculature Assessment and Plan: Atrial fibrillation with RVR and Supratherapeutic INR Status post cardioversion 09/03. Started on amiodarone 400 mg p.o. twice daily, dose decreased to 20 mg twice daily 09/10 Continue Entresto Continue Metoprolol 50 mg PO BID. Started on Eliquis 5 twice daily, currently on hold in anticipation of LP Acute on chronic hypoxic respiratory failure multifactorial, secondary to acute influenza A, bacterial pneumonia Klebsiella oxytoca Streptococcus pneumonia, acute COPD exacerbation, acute on chronic HFrEF requiring intubation Sepsis, ventilator associated pneumonia with gram-negative bacilli in sputum culture decreased level of consciousness Acute toxic metabolic encephalopathy secondary to the above Severe pulmonary hypertension Acute COPD exacerbation Anxiety Acute on chronic systolic heart failure Severe pulmonary hypertension Moderate mitral regurgitation -Laisx 20 IV twice daily, Aldactone, Losartan, Farxiga on hold., Started on Entresto - IV Solu-Medrol 40 mg every 12 hours. -Doxycycline switched to Rocephin 2g IV QD on 09/04/2024., Antibiotics broadened to cefepime 2 g twice daily and vancomycin pharmacy to dose due to spiking fever and worsening leukocytosis, blood cultures and sputum cultures ordered/18 -Continue with DuoNeb Q4H scheduled and Q2N PRN. -Continue Pulmicort 1 mg INH BID and Performist 20 mcg INH BID. -Cardiology on board. Cargo Services Coordinator on board -Discussed with RN, ICU team -CT brain for unresponsiveness was negative -EEG with moderate to severe background slowing, neurology following -poor prognosis Hyperkalemia, resolved: Recheck potassium ordered,, Lokelma given09/08 Constipation: Senna scheduled, added lactulose History of alcohol abuse Haldol 4 mg IV Q6H PRN agitation CIWA protocol with Ativan PRN IV thiamine 100 daily Hypertension not hypotensive anymore, Levophed stopped 09/06 814 DVT prophylaxis: Heparin drip Anticipated discharge pending Clinical course Objective - Vital Signs Vital signs: Vital Signs Temp 98.7 F 09/10/24 12:00 Pulse 79 09/10/24 14:00 Resp 18 09/10/24 14:00 BP 125/51 09/10/24 14:00 Pulse Ox 95 09/10/24 14:00 FiO2 40 09/10/24 14:00 Intake & Output 09/09/24 09/10/24 09/10/24 18:59 06:59 18:59 Intake Total 1636 3332 828 Output Total 1265 1815 985 Balance 371 1517 -157 Weight 74 kg Intake: IV 396 1972 288 0.9 3cc/ hr a-line 33 36 24 0.9 3cc/hr cvp 33 36 24 0.9 at KVO 110 60 80 Cefepime 2 gm In Sodium 100 Chloride 0.9% 100 ml @ 25 mls/hr IVPB Q12HR [facility] Rx #:[id number] Lactated Ringers 1,000 ml 220 240 160 @ 20 mls/hr IV .Q24H [facility] Rx#:[id number] Sodium Chloride 0.9% 1, 1000 000 ml @ 999 mls/hr IV . Q1H1M ONE Rx#:[id number] Sodium Chloride 0.9% 500 500 ml 500 ml @ 999 mls/hr IV .Q31M ONE Rx#:[id number] Intake, IV Titration 600 500 Amount Cefepime 2 gm In Sodium 100 Chloride 0.9% 100 ml @ 25 mls/hr IVPB Q12HR [facility] Rx #:[id number] Sodium Chloride 0.9% 500 500 ml 500 ml @ 999 mls/hr IV .Q31M ONE Rx#:[id number] Vancomycin 1,500 mg In 500 Sodium Chloride 0.9% 500 ml 500 ml @ 167 mls/hr IVPB ONCE ONE Rx#: [id number] Tube Feeding 550 710 480 Other 90 150 60 Output: Urine 1265 1815 985 Other: Voiding Method Indwelling Catheter Indwelling Catheter Indwelling Catheter ABP, PAP, CO, CI - Last Documented Arterial Blood Pressure 136/66 - Labs CBC & Chem 7: 09/10/24 04:27 09/10/24 04:27 Labs: Abnormal Lab Results - Last 24 Hours (Table) 09/09/24 09/09/24 09/10/24 Range/Units 16:32 23:16 04:27 WBC (3.8-10.6) k/uL MCV (80.0-100.0) fL ABG pCO2 (35-45) mmHg ABG pO2 (83-108) mmHg ABG HCO3 (21-25) mmol/L ABG Total CO2 (19-24) mmol/L ABG O2 Saturation (94-97) % Carbon Dioxide 36 H (22-30) mmol/L BUN 61 H (7-17) mg/dL Glucose 166 H (74-99) mg/dL POC Glucose (mg/dL) 187 H 199 H (70-110) mg/dL Calcium 8.3 L (8.4-10.2) mg/dL 09/10/24 09/10/24 09/10/24 Range/Units 04:27 05:09 05:10 WBC 24.3 H (3.8-10.6) k/uL MCV 105.9 H (80.0-100.0) fL ABG pCO2 58 H (35-45) mmHg ABG pO2 72 L (83-108) mmHg ABG HCO3 39 H (21-25) mmol/L ABG Total CO2 40 H (19-24) mmol/L ABG O2 Saturation 93.8 L (94-97) % Carbon Dioxide (22-30) mmol/L BUN (7-17) mg/dL Glucose (74-99) mg/dL POC Glucose (mg/dL) 154 H (70-110) mg/dL Calcium (8.4-10.2) mg/dL 09/10/24 Range/Units 11:47 WBC (3.8-10.6) k/uL MCV (80.0-100.0) fL ABG pCO2 (35-45) mmHg ABG pO2 (83-108) mmHg ABG HCO3 (21-25) mmol/L ABG Total CO2 (19-24) mmol/L ABG O2 Saturation (94-97) % Carbon Dioxide (22-30) mmol/L BUN (7-17) mg/dL Glucose (74-99) mg/dL POC Glucose (mg/dL) 139 H (70-110) mg/dL Calcium (8.4-10.2) mg/dL Microbiology - Last 24 Hours (Table) 09/09/24 12:34 Gram Stain - Preliminary Sputum Sputum Culture - Preliminary Gram Neg Bacilli
--- NOTE | 2024-09-10 15:51 | P.PN ---
Subjective Progress Note Date: 09/10/24 This is a 74-year-old female, familiar to my service, patient is known to have history of COPD, severe, history of chronic cor pulmonale, history of nonischemic cardiomyopathy and LV dysfunction as well as history of chronic atrial fibrillation maintained on Coumadin. Patient is also known to have histo ry of moderate mitral regurgitation. Patient is normally on oxygen at 2 L/min, she is normally on diuretics, and she was very seen about a week ago in my office with worsening swelling of her lower extremities, and patient was placed on Aldactone in addition to her Lasix. Her leg swelling improved, however patient came into the ER on 08/28/2024, came in mostly with worsening shortness of breath, cough, wheezing, apparently when she was brought in by EMS she was found to be in tripod position and she was breathing quite heavy. Patient was placed on BiPAP, that seemed to improve her pulmonary status significantly on BiPAP. In the ER, patient was noted to have positive screening for acute influenza A. Last night I was notified about this patient about her shortness of breath and being BiPAP dependent, patient is known to have history of alcohol drinking, and there was also a concern about the patient going into alcohol withdrawal. Patient required some Ativan, admitted to the ICU for close monitoring. I was asked to see her in consultation. In addition to her COPD, patient had positive screening for influenza A. Today I saw the patient in the ICU, she is still on BiPAP 12/5/40%, patient is receiving Lasix, she is also on Aldactone, patient is on Tamiflu, and she is on her usual bronchodilators and on Solu-Medrol. WBC count is 11.9 hemoglobin 12.3 INR is 3.1 electrolytes are normal renal profile is normal troponin is less than 0.012 Evaluated today on 08/31/2024, patient remains in the ICU, patient is on 4 L nasal cannula, last night she was on BiPAP 12/5/40%, patient remains on bronchodilators, Lasix, Coumadin, and she is also on doxycycline. Baseline FEV1 from my office chart is 42% at best. Clearly the patient has severe underlying COPD. Patient is now on nasal cannula, had to be on BiPAP yesterday. Chest x- ray today is suggestive of interstitial edema, underlying pneumonia is felt to be less likely but not entirely ruled out. WBC count is 11.4 hemoglobin is 14.3 INR is 3.3 electrolytes are normal bicarb is 4 0 BUN is 27 creatinine 0.66 The patient is seen today September 01, 2024 in follow-up in the intensive care unit. She is currently sitting up in bed. She is quite restless. Moving from [id number]. She was on BiPAP 12/5 and 40% FiO2. She is currently on 4 L nasal cannula. Her O2 saturation did drop into the 70s when she had her oxygen off. She did require Ativan throughout the night. Recent arterial blood gases revealed a PH of 69, pCO2 79 and a pH of 7.38. She is continued on DuoNeb inhalations, Symbicort, Solu-Medrol. Empiric antibiotics in the form of doxycycline. She remains on IV diuretics. Remains on the CIWV protocol. Anticoagulated with warfarin. White count 11.4. Hemoglobin 14.4. Platelets 169. INR 4.8. Sodium 150. Potassium 3.9. Bicarb 45. BUN 39. Creatinine 0.67. Chest x-ray reveals similar moderate interstitial opacities. The patient is seen today September 02, 2024 in follow-up in the intensive care unit. Throughout the night and early this morning she became more obtunded. She was maintained on BiPAP 12/5 and 50% FiO2. PaO2 of 90, pCO2 of 97 and a pH of 7.34. She subsequently had undergone intubation and mechanical ventilatory support. She is currently on assist-control mode at a rate of 20, tidal volume 350, FiO2 100% and a PEEP of 5. Follow-up blood gases revealed a PaO2 of 332, pCO2 75 and a pH of 7.43. The FiO2 was decreased to 40%. White count 11.4. Hemoglobin 14.7. Platelets 173. Sodium 150. Potassium 4.2. Bicarb 47. BUN 59. Creatinine 0.67. Glucose 378. AST 50. ALT 58. Amiodarone at 0.5 mg/h. Her INR was 7.2. She did receive vitamin K. She is requiring norepinephrine at 0.03 mcg/kg/min. Propofol at 15 mcg/kg/min. Continued on DuoNeb inhalations, S ymbicort, doxycycline. Chest x-ray shows evidence of COPD with superimposed pulmonary vascular congestion. Ongoing patchy left basilar and retrocardiac opacity. The patient is seen today September 03, 2024 in follow-up in the intensive care unit. She remains intubated on mechanical ventilator. Currently on assist- control mode with a rate of 20, tidal volume 350, FiO2 40% and a PEEP of 5. Morning blood gases revealed a PaO2 of 83, pCO2 of 80 and a pH of 7.38. She is still having issues with atrial fibrillation with rapid ventricular response. She is on a amiodarone drip at 1 mg/min. Remains on norepinephrine at 3.4 mcg/min. D5W at 125 mL/h. Propofol at 20 mcg/kg/min. Insulin drip at 6 units/h. She is being nourished with vital HP at 30 mL/h with a goal of 38. Chest x-ray reveals diffuse interstitial changes on a background of COPD. Small left pleural effusion. Retrocardiac consolidation/atelectasis. Blood culture reveals no growth. Sputum culture reveals no growth to date. 14.5. Platelets 222. INR 1.6. Sodium 136. Potassium 3.8. Bicarb 45. BUN 70. Creatinine 0 .91. Glucose 213. She remains on DuoNeb and elations, Pulmicort and Perforomist inhalations, IV Solu-Medrol. Remains on warfarin. Remains on Protonix. The patient is seen today September 04, 2024 in follow-up in the intensive care unit. She remains intubated on the mechanical ventilator. Currently on assist- control mode with a rate of 20, tidal volume 350, FiO2 40% and a PEEP of 5. Morning blood gases revealed a PaO2 of 76, pCO2 77 and a pH of 7.36. She remains in atrial fibrillation with a rapid ventricular response and an undergone cardioversion this a.m. with 200 J and is currently back in sinus rhythm. She remains on amiodarone drip at 0.5 mg/min. Heparin drip per weight- based protocol. Sedated with propofol at 30 mcg/kg/min. Norepinephrine at 1 mcg/min. Lactated Ringer's at 75 mL/h. She is being nourished with vital HP at 38 mL/h which is goal. She is continued on DuoNeb and elations, Pulmicort and Perforomist inhalations, IV Solu-Medrol. Protonix for GI prophylaxis. Remains on doxycycline. Sputum culture now revealing Streptococcus pneumoniae. White count 13.8. Hemoglobin 13.9. Platelets 157. INR 1.3. Sodium 132. Potassium 4.9. Bicarb 35. BUN 89. Creatinine 0.95. Glucose 178. The patient is seen today September 05, 2024 in follow-up in the intensive care unit. She remains intubated on the mechanical ventilator. Currently on assist- control mode with a rate of 20, tidal valve 350, FiO2 40% and a PEEP of 5. Morning blood gases revealed a PaO2 of 87, pCO2 of 73 and a pH of 7.38. Chest x-ray reveals cardiomegaly with small left pleural effusion. She is sedated on propofol at 30 mcg/kg/min. Remains on norepinephrine at 2 mcg/min. Continued on a heparin drip per weight-based protocol. Lactated Ringer's at 75 mL/h. She is being nourished with vital HP at 30 mL/h which is goal. She is continued on ceftriaxone. Sputum culture was positive for Klebsiella oxytoca and Streptococcus pneumoniae. Blood culture revealed no growth. Urine culture revealed no growth. White count 16.0. Hemoglobin 12.8. Platelets 147. Sodium 136. Potassium 4.7. Bicarb 40. BUN 84. Creatinine 0.94. Glucose 176. She is maintained on DuoNeb inhalations, Pulmicort and Perforomist inhalations, Solu-Medrol. Protonix for GI prophylaxis. The patient is seen today September 06, 2019 tidal valve 350, FiO2 40% and a PEEP of 5. Morning blood gases revealed a PaO2 of 79, pCO2 of 66 and a pH of 7.43. She is sedated with propofol 25 mcg/kg/min. Currently on norepinephrine at 2.1 mcg/min. Lactated Ringer's at 75 mL/h. Heparin drip per weight-based protocol. She is being nourished with vital HP 30 mL/h which is goal. She is currently in sinus rhythm. Yesterday's daily interruption of sedation the patient became quite hypertensive and tachycardic. Plan for DIS again today. Performance improved Pulmicort inhalations. IV Solu-Medrol. Continued on ceftriaxone. Sputum culture was positive for Klebsiella oxytoca and Streptococcus pneumoniae. Blood culture revealed no growth. Urine culture revealed no growth 0.2. Hemoglobin 12.2. Platelets 157. Sodium 140. Potassium 4.3. Bicarb 40. BUN 76. Creatinine 0.77. The patient is seen today September 07, 2024 in follow-up in the intensive care unit. She remains intubated on the mechanical ventilator and assist-control mode at a rate of 20, tidal valve 350, FiO2 40% and a PEEP of 5. Morning blood gases revealed a PaO2 of 82, pCO2 of 64 and a pH of 7.43. She is on a heparin drip per weight-based protocol. Lactated Ringer's at 75 mL/h. Vital HP at 30 mL/h which is goal. Her propofol has been off for over 24 hours. She remains unresponsive. Chest x-ray reveals similar multifocal interstitial opacities. Endotracheal nasogastric tubes in good position. Left triple-lumen catheter in position. Sputum culture was positive for Klebsiella oxytoca and Streptococcus pneumoniae. Blood and urine cultures revealed no growth. White count 16.8. Hemoglobin 13.7. Platelets 175. Sodium 141. Potassium 5.8. Bicarb 40. BUN 70. Creatinine 0.76. Glucose 100. He is continued on DuoNeb inhalations, Pulmicort and Perforomist inhalations, Solu-Medrol. Protonix for GI proph ylaxis. She remains on Levemir and NovoLog sliding scale. She remains on ceftriaxone. She remains in a positive balance of 1.3 L. On 09/08/2024, the patient is being seen for a follow-up. The patient remains intubated on mechanical ventilator. Noted the patient has been off sedation since 09/05/2024 and the patient is very sluggish in response. This was noted yesterday and a CAT scan of the brain was done that showed no acute abnormalities. On today's evaluation, the patient grimaces only to deep painful stimulation. She is able to give me a slight grab using her right hand. Otherwise, she is not following any commands and she is considerably encephalopathic still. She remains on mechanical ventilator assist-control mode with rate of 20, tidal volume of 350, FiO2 40% with a PEEP of 5. Blood gas from today shows a pH of 7.42 with a pCO2 of 68 and pO2 of 72. She has a left sub clavian triple-lumen catheter. Chest x-ray shows a small left-sided pleural effusion and there is diffuse interstitial changes bilaterally. The patient remains hemodynamically stable. The patient is on lactated Ringer at rate of 75 cc an hour. The patient remains on IV Rocephin. The patient remains on IV Solu-Medrol. Cardiac rhythm is sinus. The patient remains on vital high- protein at rate of 30 cc an hour. The blood work from today shows a WBC count of 17 with a heme of 12.3 and a platelet count of 149. Sodium is at 139, bicarb is at 42 with a BUN of 68 and a creatinine of 0.87. The fluid balance is +1.2 L over the past 24 hours and the patient was given a dose of Lasix yesterday with improvement in urine output. The patient remains on Levemir insulin 30 units daily along with a sign scale coverage. 09/09/2024, the patient is being seen for a follow-up. The patient remains neurologically unchanged. Noted the patient has been off sedation and there is no reasonable neurologic recovery. She grimaces only to deep painful stimulation. No seizure activity. EEG was done it was consistent with encephalopathy and diffuse slowing/metabolic encephalopathy. No seizure activ ity has been noted. The patient remains on mechanical ventilator. She is on assist-control mode with rate of 20, tidal volume of 350, FiO2 of 40% with a PEEP of 5. Blood gas showed a pH of 7.47 with a pCO2 of 61 and pO2 of 67. Chest x-ray remains essentially unchanged. IV fluids at KVO. The patient is a normal sinus rhythm. The patient is eating vital high-protein at rate of 40 cc an hour for enteral feeding nutrition support. The fluid balance is negative to 11 cc over the past 24 hours. She has a left subclavian triple-lumen catheter in place. The white cell count is currently up to 35, no clear source of infection. The patient is broad in terms of antibiotic coverage and she was placed on a combination of cefepime and vancomycin. As noted, the chest x-ray shows diffuse interstitial changes bilaterally with small bilateral pleural effusions and background COPD. Of concern, is her ongoing encephalopathy. In terms of her blood work, the white cell count is at 35 with a hemoglobin 12.5 and platelet count of 185. Sodium is at 140, BUN 65 with a creatinine of 0.9 and a sodium level is at 140 and a potassium level is at 5.0. Calcium level is at 8.4. Neurology consultation was obtained.The patient remains on Levemir insulin for blood sugar control and the patient is currently on Levemir insulin 30 units along with NovoLog 10 units 4 times a day and sliding scale coverage. Blood sugar control is adequate at this point in time. 09/10/2024, the patient is being seen for a follow-up. Remains intubated on mechanical ventilator. Neurologically, the patient grimaces only to the painful stimulation. Does not follow any commands. No adequate recovery in the patien t's mentation. The patient remains off sedation for more than 3 days. However, she has required Dilaudid and morphine overnight to maintain synchrony with a mechanical ventilator as the patient was biting on the orotracheal tube. For now, she is calm and comfortable. She is on assist-control mode of mechanical ventilation at rate of 20, tidal volume of 350, FiO2 40% with a PEEP of 5. Blood gas showed a pH of 7.43 with a pCO2 of 58 and pO2 of 72. The patient's cardiac rhythm is sinus. Follow-up chest x-ray from today shows diffuse interstitial markings bilaterally and this is more consistent with volume overload. There was a concern of a ongoing pneumonia and another sputum sample was obtained yesterday and showed positive for Klebsiella oxytoca. The patient remains on a combination of cefepime and vancomycin. The white cell count is improved compared to yesterday and currently down to 24. Hemoglobin 13 with a platelet count of 188. Sodium levels at 139 with a potassium level of 4.8, BUN 61 with a creatinine of 0.7. Calcium level is at 8.3. The patient is on vital high-protein at rate of 60 cc an hour. Procalcitonin level is at 0.2. Overall fluid balance over the past 24 hours is -1.2 L and the patient remains on Lasix 20 mg IV every 12 hours. She is on metoprolol. She is on Entresto. She is on oral amiodarone 200 mg p.o. twice a day. Objective - Vital Signs Vital signs: Vital Signs Temp 99.3 F 09/10/24 00:00 Pulse 82 09/10/24 08:32 Resp 22 09/10/24 07:00 BP 121/61 09/10/24 07:00 Pulse Ox 92 L 09/10/24 07:00 FiO2 40 09/10/24 08:11 Intake & Output 02/09/10/24 09/10/24 18:59 06:59 18:59 Intake Total 1636 3332 96 Output Total 1265 1815 100 Balance 371 1517 -4 Weight 74 kg Intake: IV 396 1972 36 0.9 3cc/ hr a-line 33 36 3 0.9 3cc/hr cvp 33 36 3 0.9 at KVO 110 60 10 Cefepime 2 gm In Sodium 100 Chloride 0.9% 100 ml @ 25 mls/hr IVPB Q12HR [facility] Rx #:[id number] Lactated Ringers 1,000 ml 220 240 20 @ 20 mls/hr IV .Q24H [facility] Rx#:[id number] Sodium Chloride 0.9% 1, 1000 000 ml @ 999 mls/hr IV . Q1H1M [facility] Rx#:[id number] Sodium Chloride 0.9% 500 500 ml 500 ml @ 999 mls/hr IV .Q31M [facility] Rx#:[id number] Intake, IV Titration 600 500 Amount Cefepime 2 gm In Sodium 100 Chloride 0.9% 100 ml @ 25 mls/hr IVPB Q12HR [facility] Rx #:[id number] Sodium Chloride 0.9% 500 500 ml 500 ml @ 999 mls/hr IV .Q31M [facility] Rx#:[id number] Vancomycin 1,500 mg In 500 Sodium Chloride 0.9% 500 ml 500 ml @ 167 mls/hr IVPB ONCE [facility] Rx#: [id number] Tube Feeding 550 710 60 Other 90 150 Output: Urine 1265 1815 100 Other: Voiding Method Indwelling Catheter Indwelling Catheter ABP, PAP, CO, CI - Last Documented Arterial Blood Pressure 126/42 - Exam GENERAL EXAM: Intubated, unresponsive, off sedation, 74-year-old female, on the ventilator, in no acute distress. Unable to follow commands. Unable to communicate. Grimaces only to deep painful stimulation. Neurologic function has been essentially unchanged. HEAD: Normocephalic. EYES: Sluggish reaction of pupils, equal size. NOSE: Clear with pink turbinates. THROAT: Oral endotracheal and gastric tube secured in place. No erythema or exudates. NECK: No masses, no JVD. CHEST: No chest wall deformity. Left subclavian triple-lumen catheter in place. LUNGS: Equal air entry with few scattered rhonchi. CVS: S1 and S2 normal with no audible murmur, regular rhythm. ABDOMEN: No hepatosplenomegaly, normal bowel sounds, no guarding or rigidity. SPINE: No scoliosis or deformity SKIN: Areas of ecchymosis and bruising. CENTRAL NERVOUS SYSTEM: Sedated, tone is normal in all 4 extremities. The patient remains encephalopathic. She grimaces to painful stimulation. She has been off sedation for more than 72 hours. EXTREMITIES: Right radial arterial line in place. There is no peripheral edema. Peripheral pulses are intact. - Labs CBC & Chem 7: 09/10/24 04:27 09/10/24 04:27 Labs: Abnormal Lab Results - Last 24 Hours (Table) 09/09/24 09/09/24 09/09/24 Range/Units 05:00 05:00 16:32 WBC (3.8-10.6) k/uL MCV (80.0-100.0) fL Neutrophils # 33.9 H (1.3-7.7) k/uL Lymphocytes # 0.2 L (1.0-4.8) k/uL ABG pCO2 (35-45) mmHg ABG pO2 (83-108) mmHg ABG HCO3 (21-25) mmol/L ABG Total CO2 (19-24) mmol/L ABG O2 Saturation (94-97) % Chloride 93 L (98-107) mmol/L Carbon Dioxide 41 H* (22-30) mmol/L BUN 65 H (7-17) mg/dL Glucose 163 H (74-99) mg/dL POC Glucose (mg/dL) 187 H (70-110) mg/dL Calcium (8.4-10.2) mg/dL 09/09/24 09/10/24 09/10/24 Range/Units 23:16 04:27 04:27 WBC 24.3 H (3.8-10.6) k/uL MCV 105.9 H (80.0-100.0) fL Neutrophils # (1.3-7.7) k/uL Lymphocytes # (1.0-4.8) k/uL ABG pCO2 (35-45) mmHg ABG pO2 (83-108) mmHg ABG HCO3 (21-25) mmol/L ABG Total CO2 (19-24) mmol/L ABG O2 Saturation (94-97) % Chloride (98-107) mmol/L Carbon Dioxide 36 H (22-30) mmol/L BUN 61 H (7-17) mg/dL Glucose 166 H (74-99) mg/dL POC Glucose (mg/dL) 199 H (70-110) mg/dL Calcium 8.3 L (8.4-10.2) mg/dL 09/10/24 09/10/24 Range/Units 05:09 05:10 WBC (3.8-10.6) k/uL MCV (80.0-100.0) fL Neutrophils # (1.3-7.7) k/uL Lymphocytes # (1.0-4.8) k/uL ABG pCO2 58 H (35-45) mmHg ABG pO2 72 L (83-108) mmHg ABG HCO3 39 H (21-25) mmol/L ABG Total CO2 40 H (19-24) mmol/L ABG O2 Saturation 93.8 L (94-97) % Chloride (98-107) mmol/L Carbon Dioxide (22-30) mmol/L BUN (7-17) mg/dL Glucose (74-99) mg/dL POC Glucose (mg/dL) 154 H (70-110) mg/dL Calcium (8.4-10.2) mg/dL Microbiology - Last 24 Hours (Table) 09/09/24 12:34 Gram Stain - Preliminary Sputum Assessment and Plan Plan: Acute on chronic hypoxic respiratory failure secondary to a COPD exacerbation, systolic CHF exacerbation, influenza A. The patient required intubation and mechanical ventilatory support on 09/02/2024. The patient remains intubated on mechanical ventilator. Chest x-ray shows diffuse interstitial pattern and small left-sided pleural effusion. Adequate oxygenation and ventilation. Neurologically, the patient has diminished level of consciousness and the patient has been off sedation since 09/05/2024. CAT scan of the brain done on 09/07/2024 showed no acute abnormalities. EEG was done and the patient is showing diffuse encephalopathy and diffuse slowing. No seizure activity has been noted. The patient's mental status remains unchanged over the past 48 hours. Obviously, with the diminished level of consciousness, she is not ready for any further weaning or extubation at this point in time. Acute influenza A, completed a course of Tamiflu Acute exacerbation of COPD, remains on bronchodilators and systemic steroids Acute on chronic systolic congestive heart failure. The patient has impairment of the LV function with an ejection fraction of 35%, nonischemic cardiomyopathy with moderate degree of mitral regurgitation. Bilateral pneumonia, likely superinfection following influenza A infection and the patient has positive cultures with Streptococcus pneumonia and Klebsiella ox ytoca. The patient remains on broad-spectrum antibiotics and the patient is currently on a combination of cefepime and vancomycin. Repeat sputum culture from 09/09/2024 was again positive for Klebsiella oxytoca. Leukocytosis, with further rise in the white cell count. The patient is currently on a combination of cefepime and vancomycin. White cell count is improved compared to yesterday. Atrial fibrillation with rapid ventricular response, the patient has received cardioversion on 09/07/2024 and the patient is back in normal sinus rhythm.The patient is currently on amiodarone 400 mg p.o. twice a day The patient is also on metoprolol 50 mg twice daily. Cardiac rhythm is sinus as stated. Hemodynamically stable and the patient is currently off pressors. Anticoagulation has been placed on hold in consideration for lumbar puncture specially if the patient's mental status remains unchanged. Alcoholism Acute metabolic encephalopathy secondary to above. The patient remains to have diminished level of consciousness. The patient has been off sedation since 09/05/2024 and the patient had a follow-up CAT scan of the brain done on 09/07/2024 that showed no acute abnormalities. EEG showed encephalopathy and diffuse slowing. Transaminitis, likely secondary to alcoholism Moderate mitral regurgitation Nonischemic cardiomyopathy, EF of 35% Hypertension Dyslipidemia Hypothyroidism Plan: Continue ventilator support The patient will be switched to a pressure support mode of mechanical ventilation. The patient was placed on pressure support of 10 and PEEP of 5 and she was quite comfortable and tolerated the pressure support mode of mechanical ventilation at this point. Avoid any form of sedation Monitor mental status Hold anticoagulation in anticipation for a lumbar puncture should the patient's mental status remain unchanged. Neurology input is appreciated IV fluids are currently at KVO Continue cefepime and discontinue the vancomycin Monitor the white cell count, white cell count is improving Repeat cultures are still pending continue diuresis with IV Lasix 40 mg every 12 hours Continue bronchodilators Discontinued IV Solu-Medrol Continue combination of amiodarone, metoprolol and anticoagulation will be placed on hold Continue vital HP for nutritional support We will continue to follow Condition remains quite critical and this evaluation was done in 35 minutes. Evaluation was done in the intensive care unit. Time with Patient: Greater than 30
[2024-09-10 17:59] LABS: Glucose,Whole Blood 234 mg/dL (70-110)
[2024-09-11] MEDS ORDERED: VANCOMYCIN 1,250 MG in SODIUM CHLORIDE 0.9% 250 ML IVPB SCH
[2024-09-11 00:02] LABS: Glucose,Whole Blood 148 mg/dL (70-110)
[2024-09-11 05:04] LABS: ABG Base Excess 12.2 mmol/L; ABG HCO3 39 mmol/L (21-25); ABG Oxygen Saturation 94.9 % (94-97); ABG PCO2 60 mmHg (35-45); ABG PH 7.42 (7.35-7.45); ABG PO2 77 mmHg (83-108); ABG TCO2 41 mmol/L (19-24)
[2024-09-11 05:06] LABS: Allen Test Performed? no
[2024-09-11 05:30] LABS: African American GFR (CKD) >90 (>60 ml/min/1.73 sqM); Anion Gap 1 mmol/L; Blood Urea Nitrogen 61 mg/dL (7-17); Calcium 8.3 mg/dL (8.4-10.2); Carbon Dioxide 40 mmol/L (22-30); Chloride 99 mmol/L (98-107); Glucose 139 mg/dL (74-99); Non-African American GFR(CKD) 83 (>60 ml/min/1.73 sqM); Potassium 4.6 mmol/L (3.5-5.1); Sodium 140 mmol/L (137-145)
[2024-09-11 05:35] LABS: Basophils % (A) 0 %; Eosinophils % (A) 0 %; HCT 43.6 % (34.0-46.0); HGB 13.8 gm/dL (11.4-16.0); Hypochromasia Slight; Lymphocytes # (A) 0.2 k/uL (1.0-4.8); Lymphocytes % (A) 1 %; MCH 33.7 pg (25.0-35.0); MCHC 31.6 g/dL (31.0-37.0); MCV 106.6 fL (80.0-100.0); Macrocytosis Moderate; Mean Platelet Volume 9.8; Monocytes # (A) 0.5 k/uL (0-1.0); Monocytes % (A) 2 %; Neutrophils # (A) 21.9 k/uL (1.3-7.7); Neutrophils % (A) 96 %; Platelet Count 210 k/uL (150-450); RBC 4.09 m/uL (3.80-5.40); RDW 14.1 % (11.5-15.5); WBC 22.7 k/uL (3.8-10.6)
[2024-09-11 06:52] LABS: Glucose,Whole Blood 130 mg/dL (70-110)
--- NOTE | 2024-09-11 07:40 | P.PN ---
Subjective Progress Note Date: 09/11/24 PROGRESS NOTE The patient is a 74-year-old female with known history of COPD, nonischemic cardiomyopathy, permanent atrial fibrillation with attempted cardioversion in May 2023 who presented with progressive dyspnea and worsening peripheral edema, was diagnosed with influenza A infection. She had worsening of her respiratory status requiring mechanical ventilation. She remains intubated, good urine output and tolerating feeding. She has no evidence of malignant arrhythmia. Her echocardiogram and admission showed an ejection fraction of 35% with mild to moderate tricuspid regurgitation and severe pulmonary hypertension that has been documented in the past. She is in sinus mechanism at this time. She underwent CT scan of the head that showed no evidence of acute events. September 09: The patient remains intubated, not following verbal command. She is in sinus mechanism on no vasopressors. Her urinary output has been good. She has been evaluated by the neurology service for her mental status and felt probably to have metabolic encephalopathy. There is no evidence of recurrent atrial fibrillation. She continues to be in sinus mechanism. September 10: The patient remains intubated and sedated, in sinus mechanism. Hemodynamically stable. She had an echocardiogram that showed an ejection fraction of 40 to 45% with moderate severe pulmonary hypertension and dilated right ventricle and mild to moderate tricuspid regurgitation. She remains unresponsive and is being evaluated by the neurology service September 11: The patient remains intubated, not following command clearly. She continues to be in sinus mechanism. She continues to be of anticoagulation because of possible lumbar puncture today. Hemodynamically she is stable. Her urinary output is stable. She had no evidence of ventricular tachyarrhythmia. Her chest x-ray shows no significant changes. Medications: Amiodarone 200 mg twice a day, insulin, metoprolol tartrate 50 mg twice a day, Solu-Medrol, thiamine Lasix 20 mg IV every 12 hours Entresto 24-26 mg twice a day. Her anticoagulation is on hold for possible lumbar puncture PHYSICAL EXAMINATION: Blood pressure 135/65 heart rate 84, intubated, not following command LUNGS: Clear to auscultation anteriorly HEART: Regular rate and rhythm, S1, S2. No S3. Systolic ejection murmur ABDOMEN: Soft, positive bowel sounds, no organomegaly EXTREMETIES: No edema LAB: Hemoglobin 13.8, WBC 22.7, potassium 4.6, BUN 61, creatinine 0.73 IMPRESSION: 1. Respiratory failure with COPD exacerbation, influenza A and history of CHF with reduced ejection fraction 2. Chronic cardiomyopathy, nonischemic, maintaining sinus mechanism 3. Atrial fibrillation, maintaining sinus mechanism, status post cardioversion 4. Prior history of alcohol intake 5. Streptococcus pneumonia with leukocytosis 6. Prior history of hypertension PLAN: 1. Continue present therapy 2. Neurowork-up for evaluation of mental status and possible LP today 3. Restart anticoagulation once LP is done 4. Follow blood pressure and adjust medication accordingly Objective - Vital Signs Vital signs: Vital Signs Temp 98.0 F 09/11/24 04:00 Pulse 84 09/11/24 07:00 Resp 24 09/11/24 07:00 BP 135/65 09/11/24 07:00 Pulse Ox 93 L 09/11/24 07:00 FiO2 40 09/11/24 04:55 Intake & Output 09/10/24 09/11/24 09/11/24 18:59 06:59 18:59 Intake Total 1212 1037 21 Output Total 1365 1595 95 Balance -153 -8 -74 Weight 73.4 kg Intake: IV 432 347 21 0.9 3cc/ hr a-line 36 36 3 0.9 3cc/hr cvp 36 36 3 0.9 at KVO 120 45 5 Cefepime 2 gm In Sodium 100 Chloride 0.9% 100 ml @ 25 mls/hr IVPB Q12HR [facility] Rx #:[id number] Lactated Ringers 1,000 ml 240 130 10 @ 20 mls/hr IV .Q24H [facility] Rx#:[id number] Tube Feeding 720 600 Other 60 90 Output: Urine 1365 1595 95 Other: Voiding Method Indwelling Catheter Indwelling Catheter ABP, PAP, CO, CI - Last Documented Arterial Blood Pressure 150/53 - Labs CBC & Chem 7: 09/11/24 04:30 09/11/24 04:30 Labs: Abnormal Lab Results - Last 24 Hours (Table) 09/10/24 09/10/24 09/11/24 Range/Units 11:47 17:58 00:01 WBC (3.8-10.6) k/uL MCV (80.0-100.0) fL Neutrophils # (1.3-7.7) k/uL Lymphocytes # (1.0-4.8) k/uL ABG pCO2 (35-45) mmHg ABG pO2 (83-108) mmHg ABG HCO3 (21-25) mmol/L ABG Total CO2 (19-24) mmol/L Carbon Dioxide (22-30) mmol/L BUN (7-17) mg/dL Glucose (74-99) mg/dL POC Glucose (mg/dL) 139 H 234 H 148 H (70-110) mg/dL Calcium (8.4-10.2) mg/dL 09/11/24 09/11/24 09/11/24 Range/Units 04:30 04:30 05:00 WBC 22.7 H (3.8-10.6) k/uL MCV 106.6 H (80.0-100.0) fL Neutrophils # 21.9 H (1.3-7.7) k/uL Lymphocytes # 0.2 L (1.0-4.8) k/uL ABG pCO2 60 H (35-45) mmHg ABG pO2 77 L (83-108) mmHg ABG HCO3 39 H (21-25) mmol/L ABG Total CO2 41 H (19-24) mmol/L Carbon Dioxide 40 H (22-30) mmol/L BUN 61 H (7-17) mg/dL Glucose 139 H (74-99) mg/dL POC Glucose (mg/dL) (70-110) mg/dL Calcium 8.3 L (8.4-10.2) mg/dL 09/11/24 Range/Units 06:50 WBC (3.8-10.6) k/uL MCV (80.0-100.0) fL Neutrophils # (1.3-7.7) k/uL Lymphocytes # (1.0-4.8) k/uL ABG pCO2 (35-45) mmHg ABG pO2 (83-108) mmHg ABG HCO3 (21-25) mmol/L ABG Total CO2 (19-24) mmol/L Carbon Dioxide (22-30) mmol/L BUN (7-17) mg/dL Glucose (74-99) mg/dL POC Glucose (mg/dL) 130 H (70-110) mg/dL Calcium (8.4-10.2) mg/dL Microbiology - Last 24 Hours (Table) 09/09/24 17:30 Blood Culture - Preliminary Blood 09/09/24 15:30 Urine Culture - Final Urine,Catheterized 09/09/24 12:34 Gram Stain - Preliminary Sputum Sputum Culture - Preliminary Klebsiella oxytoca
--- NOTE | 2024-09-11 08:30 | XR ---
EXAMINATION TYPE: XR chest 1V portable DATE OF EXAM: 09/11/2024 5:39 AM COMPARISON: Multiple radiographs, with the most recent on 09/10/2024 TECHNIQUE: XR chest 1V portable Portable AP radiograph of the chest. CLINICAL INDICATION:Female, 74 years old with history of mechanical ventilation; FINDINGS: Lungs/Pleura: No pneumothorax. Blunting of the right costophrenic angle. Persistent diffuse interstit ial opacities. Hyperinflation. Heart/mediastinum: Cardiomediastinal silhouette is prominent in size. Atherosclerotic calcifications are seen in the aorta. Musculoskeletal: No acute osseous pathology. Lines/Tubes: Endotracheal tube with distal tip 4.3 cm above the charles Nasogastric tube with its distal tip and side-port projecting under the diaphragm and projecting over the gastric lumen. Left subclavian approach central venous catheter with distal tip at the superior cavoatrial junction. IMPRESSION: 1. Similar diffuse interstitial changes with small right pleural effusion. 2. Stable support lines and tubes. 3. COPD changes. [facility], , 09/11/2024 8:27 AM
--- NOTE | 2024-09-11 10:22 | P.PN ---
Subjective Progress Note Date: 09/10/24 Patient was seen for a follow-up. Patient has been off sedation for last 48 hours. Prior to that, she has been sporadically on low-dose propofol 10 mcg/kg's per minute. Patient is currently on cefepime and vancomycin. She turns her head, nurse does not follow commands. Sometimes fluttering her eyes. Patient has Klebsiella and Streptococcus pneumonia in the sputum with elevated white cells. Patient on antibiotics. ID following. Patient has atrial fibrillation with RVR. Eliquis on hold because patient is undergoing LP tomorrow. Per nurse report, patient was admitted on 08/28/2024 for shortness of breath, blood pressure issues. She was admitted to 3 S. An A-team was called for patient with altered mental status, hallucinations and appeared patient has history of alcoholism. She was started on CIWA protocol. Patient was intubated on 09/02/2024. She is also influenza positive. Objective - Vital Signs Vital signs: Vital Signs Temp 99.6 F 09/10/24 17:00 Pulse 86 09/10/24 20:45 Resp 20 09/10/24 19:00 BP 124/67 09/10/24 19:00 Pulse Ox 94 L 09/10/24 19:00 FiO2 40 09/10/24 20:21 Intake & Output 09/10/24 09/10/24 09/11/24 06:59 18:59 06:59 Intake Total 3332 1212 96 Output Total 1815 1365 75 Balance 1517 -153 21 Weight 74 kg Intake: IV 1972 432 36 0.9 3cc/ hr a-line 36 36 3 0.9 3cc/hr cvp 36 36 3 0.9 at KVO 60 120 10 Cefepime 2 gm In Sodium 100 Chloride 0.9% 100 ml @ 25 mls/hr IVPB Q12HR [facility] Rx #:[id number] Lactated Ringers 1,000 ml 240 240 20 @ 20 mls/hr IV .Q24H [facility] Rx#:[id number] Sodium Chloride 0.9% 1, 1000 000 ml @ 999 mls/hr IV . Q1H1M ONE Rx#:[id number] Sodium Chloride 0.9% 500 500 ml 500 ml @ 999 mls/hr IV .Q31M ONE Rx#:[id number] Intake, IV Titration 500 Amount Sodium Chloride 0.9% 500 500 ml 500 ml @ 999 mls/hr IV .Q31M ONE Rx#:[id number] Tube Feeding 710 720 60 Other 150 60 Output: Urine 1815 1365 75 Other: Voiding Method Indwelling Catheter Indwelling Catheter ABP, PAP, CO, CI - Last Documented Arterial Blood Pressure 150/53 - Exam Patient is off sedation for last 48 hours. She sometimes moves her head [id number]. Patient grimaces with painful stimuli, equally with all 4 extremities. Does not follow commands otherwise. Her eyes are partly open, but she is very encephalopathic. Rest of the examination is unchanged. - Labs CBC & Chem 7: 09/11/24 04:30 09/11/24 04:30 Labs: Abnormal Lab Results - Last 24 Hours (Table) 09/09/24 09/10/24 09/10/24 Range/Units 23:16 04:27 04:27 WBC 24.3 H (3.8-10.6) k/uL MCV 105.9 H (80.0-100.0) fL ABG pCO2 (35-45) mmHg ABG pO2 (83-108) mmHg ABG HCO3 (21-25) mmol/L ABG Total CO2 (19-24) mmol/L ABG O2 Saturation (94-97) % Carbon Dioxide 36 H (22-30) mmol/L BUN 61 H (7-17) mg/dL Glucose 166 H (74-99) mg/dL POC Glucose (mg/dL) 199 H (70-110) mg/dL Calcium 8.3 L (8.4-10.2) mg/dL 09/10/24 09/10/24 09/10/24 Range/Units 05:09 05:10 11:47 WBC (3.8-10.6) k/uL MCV (80.0-100.0) fL ABG pCO2 58 H (35-45) mmHg ABG pO2 72 L (83-108) mmHg ABG HCO3 39 H (21-25) mmol/L ABG Total CO2 40 H (19-24) mmol/L ABG O2 Saturation 93.8 L (94-97) % Carbon Dioxide (22-30) mmol/L BUN (7-17) mg/dL Glucose (74-99) mg/dL POC Glucose (mg/dL) 154 H 139 H (70-110) mg/dL Calcium (8.4-10.2) mg/dL 09/10/24 Range/Units 17:58 WBC (3.8-10.6) k/uL MCV (80.0-100.0) fL ABG pCO2 (35-45) mmHg ABG pO2 (83-108) mmHg ABG HCO3 (21-25) mmol/L ABG Total CO2 (19-24) mmol/L ABG O2 Saturation (94-97) % Carbon Dioxide (22-30) mmol/L BUN (7-17) mg/dL Glucose (74-99) mg/dL POC Glucose (mg/dL) 234 H (70-110) mg/dL Calcium (8.4-10.2) mg/dL Microbiology - Last 24 Hours (Table) 09/09/24 15:30 Urine Culture - Final Urine,Catheterized 09/09/24 12:34 Gram Stain - Preliminary Sputum Sputum Culture - Preliminary Klebsiella oxytoca Assessment and Plan Assessment: Altered mental status, likely due to toxic metabolic encephalopathy. Reasons multifactorial as mentioned below Elevated pCO2, 65, now 58. Acute kidney injury, resolved Ventilatory dependent respiratory failure COPD exacerbation CHF exacerbation Acute influenza A, completed course of Tamiflu Bilateral pneumonia Leukocytosis Atrial fibrillation with rapid ventricular response History of alcoholism Moderate MR Nonischemic cardiomyopathy with EF 35% Hypertension Hyperlipidemia Hypothyroidism Plan: * EEG was performed, which was abnormal, due to background slowing of moderate to severe degree. This is suggestive of generalized cerebral dysfunction as can be seen with toxic metabolic encephalopathy or related to diffuse structural brain abnormality. Clinical correlation is recommended. No epileptiform activity was seen. * CT head showed no acute process. * Medical management as per IM, critical care and other specialties on board. * Patient to undergo lumbar puncture in the morning. * Hopefully patient's mentation will improve, once metabolic conditions comes under control. Addendum: I was informed by the nurse at 2:56 AM today that patient is awake now, following commands intermittently. Will squeeze right hand and wiggle right toes. She will very slightly wiggle toes on left side, noted to be weaker than right. Attempting to talk around ET tube. Patient will shake head no when asked to squeeze the left hand.
[2024-09-11 11:50] LABS: Glucose,Whole Blood 157 mg/dL (70-110)
--- NOTE | 2024-09-11 13:50 | P.PN ---
Subjective Progress Note Date: 09/11/24 Hospital Course: Patient is a 74-year-old female with past medical history significant for COPD, CHF, atrial fibrillation on Coumadin, and hypertension presents today for 1 week worsening of breathing as well as significant cough. She wears 2 L of oxygen at night but says that she has had to wear 2 L 24/7 for the past week. About 5 days ago she saw Dr. Lorenzo and he started her on spironolactone due to leg swelling and fluid retention. She states that the leg swelling has improved since. She has experienced COPD exacerbations like this before. Of note her granddaughter had the flu last week. Treated for management of acute on chronic hypoxic respiratory failure secondary to COPD exacerbation, influenza A, acute HFrEF exacerbation. Cardiology consulted. Started on IV Lasix, Coumadin continued, TTE ordered. Severe LV systolic dysfunction with EF 35%, severe pulmonary hypertension. Added Farxiga to her current medical regimen. Elevated LFTs, bilirubin, abdominal ultrasound was obtained and showed no acute finding, negative Underwood sign, adherent gallstone versus small polyp measuring 3 mm. Nonobstructing renal calculi on the right. 08/29 in the evening patient became progressively short of breath, started hallucinating. She was placed on BiPAP, given her history of alcohol drinking, she was started on CIWA with Ativan, transferred to ICU for close monitoring. Patient became obtunded and was intubated on 09/02. Went into A-Fib with RVR, successfully cardioverted on 09/03. Sedation holidays 09/05: Patient became tachypneic,reattempt 09/06-patient is off sedation since 09/06 10:30, AM on 09/07 patient is nonresponsive, no withdrawal to pain, verbal stimuli, horizontal nystagmus noted, pupils are reactive. Patient required 2 doses of Dilaudid 0.[address] brain ordered. No pressor support required 09/08: Patient is minimally responsive today, tries to open eyes, does not squeeze hands, does not move the toes. CT brain showed no acute abnormalities, EEG ordered, neurology consulted. EEG showed background slowing moderate to severe degree, CT head with no acute process. Plan for possible LP, patient is still minimally responsive, Eliquis on hold in anticipation of LP. 09/09Overnight started spiking fever, leukocytosis worsened, ordered repeat blood cultures, started patient on broad-spectrum antibiotics with vancomycin and cefepime SOT 09/09. 09/10, no changes in mental status, patient is minimally responsive to painful stimuli, no purposeful extremity movement, cannot open eyes, does not follow commands. Amiodarone decreased to 20 twice daily, continued on Entresto, Eliquis holding in anticipation of lumbar puncture. Sputum cultures gram- negative bacilli 09/11: Per neurology note, patient was noted to be awoke and following commands intermittently, slightly wiggling toes on the left side, attempting to talk. On my exam, patient turns head to voice, withdraws from pain, tries to open eyes, slight toe wiggling on request, on the left side. Does not squeeze hands. Continue to hold Eliquis for LP, vancomycin was discontinued, blood cultures from 09/09 negative, sputum cultures growing Klebsiella again. Spiked fever 09/11 midnight. Subjective: Patient is intubated Vitals Signs Reviewed. General: [Ill-appearing, intubated, Derm: [warm], [dry], multiple bruises Head: [atraumatic], [normocephalic], [symmetric] Eyes: [EOMI], [no lid lag], [anicteric sclera] Mouth: [no lip lesion], [mucus membranes moist] Cardiovascular: [S1S2 reg], [no murmur] Lungs diminished breath sounds bilaterally Abdominal: [soft], [ nontender to palpation], [no guarding], [no appreciable organomegaly] Ext: [no gross muscle atrophy], [upper extremity swelling, improved], [no contractures] Neuro: Pupils reactive, patient reacts to verbal stimuli, turns head on voice, does not squeeze hands, very little left toes movement on command, Psych: [Intubated, Data Reviewed Today: Pertinent Labs: Leukocytosis improving 22.7, hemoglobin normal stable, platelet count normal, ABG showed pH of 7.2, pCO2 82, pO2 176, normal sodium, potassium, creatinine, bicarb 40, blood glucose is controlled. Chest x-ray: Multifocal interstitial opacities, prominent pulmonary vasculature Assessment and Plan: Atrial fibrillation with RVR and Supratherapeutic INR Status post cardioversion 09/03. Started on amiodarone 400 mg p.o. twice daily, dose decreased to 200 mg twice daily 09/10 Continue Entresto Continue Metoprolol 50 mg PO BID. Started on Eliquis 5 twice daily, currently on hold in anticipation of LP Acute on chronic hypoxic respiratory failure multifactorial, secondary to acute influenza A, bacterial pneumonia Klebsiella oxytoca Streptococcus pneumonia, acute COPD exacerbation, acute on chronic HFrEF requiring intubation Septic shock, resolved Sepsis secondary to Klebsiella pneumonia decreased level of consciousness Acute toxic metabolic encephalopathy secondary to the above Severe pulmonary hypertension Acute COPD exacerbation Acute on chronic systolic heart failure Severe pulmonary hypertension Moderate mitral regurgitation -Laisx 20 IV twice daily, Aldactone, Losartan, Farxiga on hold., Started on Entresto - IV Solu-Medrol 40 mg every 12 hours. -Doxycycline switched to Rocephin 2g IV QD on 09/04/2024., Antibiotics broadened to cefepime 2 g twice daily and vancomycin pharmacy to dose due to spiking fever and worsening leukocytosis, blood cultures and sputum cultures ordered- again growing Klebsiella oxytoca, bloody urine cultures from 09/09 preliminary negative. Vancomycin discontinued -Continue with DuoNeb Q4H scheduled and Q2N PRN. -Continue Pulmicort 1 mg INH BID and Performist 20 mcg INH BID. -Cardiology on board. [employer] on board -Discussed with RN, ICU team -CT brain for unresponsiveness was negative -EEG with moderate to severe background slowing, neurology following -poor prognosis Hyperkalemia, resolved: Recheck potassium ordered,, Lokelma given09/08 Constipation: Senna scheduled, added lactulose History of alcohol abuse Haldol 4 mg IV Q6H PRN agitation CIWA protocol with Ativan PRN IV thiamine 100 daily Anxiety Hypertension not hypotensive anymore, Levophed stopped 09/06 814 DVT prophylaxis: on hold for LP Anticipated discharge pending Clinical course Objective - Vital Signs Vital signs: Vital Signs Temp 99.1 F 09/11/24 08:00 Pulse 80 09/11/24 11:52 Resp 21 09/11/24 08:00 BP 132/72 09/11/24 08:00 Pulse Ox 95 09/11/24 08:00 FiO2 40 09/11/24 12:00 Intake & Output 09/10/24 09/11/24 09/11/24 18:59 06:59 18:59 Intake Total 1212 1037 132 Output Total 1365 1595 155 Balance -153 -558 -23 Weight 73.4 kg Intake: IV 432 347 42 0.9 3cc/ hr a-line 36 36 6 0.9 3cc/hr cvp 36 36 6 0.9 at KVO 120 45 10 Cefepime 2 gm In Sodium 100 Chloride 0.9% 100 ml @ 25 mls/hr IVPB Q12HR [facility] Rx #:[id number] Lactated Ringers 1,000 ml 240 130 20 @ 20 mls/hr IV .Q24H [facility] Rx#:[id number] Tube Feeding 720 600 60 Other 60 90 30 Output: Urine 1365 1595 155 Other: Voiding Method Indwelling Catheter Indwelling Catheter Indwelling Catheter ABP, PAP, CO, CI - Last Documented Arterial Blood Pressure 152/52 - Labs CBC & Chem 7: 09/11/24 04:30 09/11/24 04:30 Labs: Abnormal Lab Results - Last 24 Hours (Table) 09/10/24 09/11/24 09/11/24 Range/Units 17:58 00:01 04:30 WBC (3.8-10.6) k/uL MCV (80.0-100.0) fL Neutrophils # (1.3-7.7) k/uL Lymphocytes # (1.0-4.8) k/uL ABG pH (7.35-7.45) ABG pCO2 (35-45) mmHg ABG pO2 (83-108) mmHg ABG HCO3 (21-25) mmol/L ABG Total CO2 (19-24) mmol/L ABG O2 Saturation (94-97) % Carbon Dioxide 40 H (22-30) mmol/L BUN 61 H (7-17) mg/dL Glucose 139 H (74-99) mg/dL POC Glucose (mg/dL) 234 H 148 H (70-110) mg/dL Calcium 8.3 L (8.4-10.2) mg/dL 09/11/24 09/11/24 09/11/24 Range/Units 04:30 05:00 06:50 WBC 22.7 H (3.8-10.6) k/uL MCV 106.6 H (80.0-100.0) fL Neutrophils # 21.9 H (1.3-7.7) k/uL Lymphocytes # 0.2 L (1.0-4.8) k/uL ABG pH (7.35-7.45) ABG pCO2 60 H (35-45) mmHg ABG pO2 77 L (83-108) mmHg ABG HCO3 39 H (21-25) mmol/L ABG Total CO2 41 H (19-24) mmol/L ABG O2 Saturation (94-97) % Carbon Dioxide (22-30) mmol/L BUN (7-17) mg/dL Glucose (74-99) mg/dL POC Glucose (mg/dL) 130 H (70-110) mg/dL Calcium (8.4-10.2) mg/dL 09/11/24 09/11/24 Range/Units 11:49 12:14 WBC (3.8-10.6) k/uL MCV (80.0-100.0) fL Neutrophils # (1.3-7.7) k/uL Lymphocytes # (1.0-4.8) k/uL ABG pH 7.20 L (7.35-7.45) ABG pCO2 82 H* (35-45) mmHg ABG pO2 176 H (83-108) mmHg ABG HCO3 32 H (21-25) mmol/L ABG Total CO2 35 H (19-24) mmol/L ABG O2 Saturation 99.3 H (94-97) % Carbon Dioxide (22-30) mmol/L BUN (7-17) mg/dL Glucose (74-99) mg/dL POC Glucose (mg/dL) 157 H (70-110) mg/dL Calcium (8.4-10.2) mg/dL Microbiology - Last 24 Hours (Table) 09/09/24 12:34 Gram Stain - Final Sputum Sputum Culture - Final Klebsiella oxytoca 09/09/24 17:30 Blood Culture - Preliminary Blood 09/09/24 15:30 Urine Culture - Final Urine,Catheterized
[2024-09-11] MEDS ORDERED: HEPARIN SODIUM,PORCINE 5,000 UNIT/ML 1 ML VIAL SQ SCH (16:00)
--- NOTE | 2024-09-11 16:05 | P.PN ---
Subjective Progress Note Date: 09/11/24 This is a 74-year-old female, familiar to my service, patient is known to have history of COPD, severe, history of chronic cor pulmonale, history of nonischemic cardiomyopathy and LV dysfunction as well as history of chronic atrial fibrillation maintained on Coumadin. Patient is also known to have histo ry of moderate mitral regurgitation. Patient is normally on oxygen at 2 L/min, she is normally on diuretics, and she was very seen about a week ago in my office with worsening swelling of her lower extremities, and patient was placed on Aldactone in addition to her Lasix. Her leg swelling improved, however patient came into the ER on 08/28/2024, came in mostly with worsening shortness of breath, cough, wheezing, apparently when she was brought in by EMS she was found to be in tripod position and she was breathing quite heavy. Patient was placed on BiPAP, that seemed to improve her pulmonary status significantly on BiPAP. In the ER, patient was noted to have positive screening for acute influenza A. Last night I was notified about this patient about her shortness of breath and being BiPAP dependent, patient is known to have history of alcohol drinking, and there was also a concern about the patient going into alcohol withdrawal. Patient required some Ativan, admitted to the ICU for close monitoring. I was asked to see her in consultation. In addition to her COPD, patient had positive screening for influenza A. Today I saw the patient in the ICU, she is still on BiPAP 12/5/40%, patient is receiving Lasix, she is also on Aldactone, patient is on Tamiflu, and she is on her usual bronchodilators and on Solu-Medrol. WBC count is 11.9 hemoglobin 12.3 INR is 3.1 electrolytes are normal renal profile is normal troponin is less than 0.012 Evaluated today on 08/31/2024, patient remains in the ICU, patient is on 4 L nasal cannula, last night she was on BiPAP 12/5/40%, patient remains on bronchodilators, Lasix, Coumadin, and she is also on doxycycline. Baseline FEV1 from my office chart is 42% at best. Clearly the patient has severe underlying COPD. Patient is now on nasal cannula, had to be on BiPAP yesterday. Chest x- ray today is suggestive of interstitial edema, underlying pneumonia is felt to be less likely but not entirely ruled out. WBC count is 11.4 hemoglobin is 14.3 INR is 3.3 electrolytes are normal bicarb is 4 0 BUN is 27 creatinine 0.66 The patient is seen today September 01, 2024 in follow-up in the intensive care unit. She is currently sitting up in bed. She is quite restless. Moving from [id number]. She was on BiPAP 12/5 and 40% FiO2. She is currently on 4 L nasal cannula. Her O2 saturation did drop into the 70s when she had her oxygen off. She did require Ativan throughout the night. Recent arterial blood gases revealed a PH of 69, pCO2 79 and a pH of 7.38. She is continued on DuoNeb inhalations, Symbicort, Solu-Medrol. Empiric antibiotics in the form of doxycycline. She remains on IV diuretics. Remains on the CIPR protocol. Anticoagulated with warfarin. White count 11.4. Hemoglobin 14.4. Platelets 169. INR 4.8. Sodium 150. Potassium 3.9. Bicarb 45. BUN 39. Creatinine 0.67. Chest x-ray reveals similar moderate interstitial opacities. The patient is seen today September 02, 2024 in follow-up in the intensive care unit. Throughout the night and early this morning she became more obtunded. She was maintained on BiPAP 12/5 and 50% FiO2. PaO2 of 90, pCO2 of 97 and a pH of 7.34. She subsequently had undergone intubation and mechanical ventilatory support. She is currently on assist-control mode at a rate of 20, tidal volume 350, FiO2 100% and a PEEP of 5. Follow-up blood gases revealed a PaO2 of 332, pCO2 75 and a pH of 7.43. The FiO2 was decreased to 40%. White count 11.4. Hemoglobin 14.7. Platelets 173. Sodium 150. Potassium 4.2. Bicarb 47. BUN 59. Creatinine 0.67. Glucose 378. AST 50. ALT 58. Amiodarone at 0.5 mg/h. Her INR was 7.2. She did receive vitamin K. She is requiring norepinephrine at 0.03 mcg/kg/min. Propofol at 15 mcg/kg/min. Continued on DuoNeb inhalations, S ymbicort, doxycycline. Chest x-ray shows evidence of COPD with superimposed pulmonary vascular congestion. Ongoing patchy left basilar and retrocardiac opacity. The patient is seen today September 03, 2024 in follow-up in the intensive care unit. She remains intubated on mechanical ventilator. Currently on assist- control mode with a rate of 20, tidal volume 350, FiO2 40% and a PEEP of 5. Morning blood gases revealed a PaO2 of 83, pCO2 of 80 and a pH of 7.38. She is still having issues with atrial fibrillation with rapid ventricular response. She is on a amiodarone drip at 1 mg/min. Remains on norepinephrine at 3.4 mcg/min. D5W at 125 mL/h. Propofol at 20 mcg/kg/min. Insulin drip at 6 units/h. She is being nourished with vital HP at 30 mL/h with a goal of 38. Chest x-ray reveals diffuse interstitial changes on a background of COPD. Small left pleural effusion. Retrocardiac consolidation/atelectasis. Blood culture reveals no growth. Sputum culture reveals no growth to date. 14.5. Platelets 222. INR 1.6. Sodium 136. Potassium 3.8. Bicarb 45. BUN 70. Creatinine 0 .91. Glucose 213. She remains on DuoNeb and elations, Pulmicort and Perforomist inhalations, IV Solu-Medrol. Remains on warfarin. Remains on Protonix. The patient is seen today September 04, 2024 in follow-up in the intensive care unit. She remains intubated on the mechanical ventilator. Currently on assist- control mode with a rate of 20, tidal volume 350, FiO2 40% and a PEEP of 5. Morning blood gases revealed a PaO2 of 76, pCO2 77 and a pH of 7.36. She remains in atrial fibrillation with a rapid ventricular response and an undergone cardioversion this a.m. with 200 J and is currently back in sinus rhythm. She remains on amiodarone drip at 0.5 mg/min. Heparin drip per weight- based protocol. Sedated with propofol at 30 mcg/kg/min. Norepinephrine at 1 mcg/min. Lactated Ringer's at 75 mL/h. She is being nourished with vital HP at 38 mL/h which is goal. She is continued on DuoNeb and elations, Pulmicort and Perforomist inhalations, IV Solu-Medrol. Protonix for GI prophylaxis. Remains on doxycycline. Sputum culture now revealing Streptococcus pneumoniae. White count 13.8. Hemoglobin 13.9. Platelets 157. INR 1.3. Sodium 132. Potassium 4.9. Bicarb 35. BUN 89. Creatinine 0.95. Glucose 178. The patient is seen today September 05, 2024 in follow-up in the intensive care unit. She remains intubated on the mechanical ventilator. Currently on assist- control mode with a rate of 20, tidal valve 350, FiO2 40% and a PEEP of 5. Morning blood gases revealed a PaO2 of 87, pCO2 of 73 and a pH of 7.38. Chest x-ray reveals cardiomegaly with small left pleural effusion. She is sedated on propofol at 30 mcg/kg/min. Remains on norepinephrine at 2 mcg/min. Continued on a heparin drip per weight-based protocol. Lactated Ringer's at 75 mL/h. She is being nourished with vital HP at 30 mL/h which is goal. She is continued on ceftriaxone. Sputum culture was positive for Klebsiella oxytoca and Streptococcus pneumoniae. Blood culture revealed no growth. Urine culture revealed no growth. White count 16.0. Hemoglobin 12.8. Platelets 147. Sodium 136. Potassium 4.7. Bicarb 40. BUN 84. Creatinine 0.94. Glucose 176. She is maintained on DuoNeb inhalations, Pulmicort and Perforomist inhalations, Solu-Medrol. Protonix for GI prophylaxis. The patient is seen today September 06, 2019 tidal valve 350, FiO2 40% and a PEEP of 5. Morning blood gases revealed a PaO2 of 79, pCO2 of 66 and a pH of 7.43. She is sedated with propofol 25 mcg/kg/min. Currently on norepinephrine at 2.1 mcg/min. Lactated Ringer's at 75 mL/h. Heparin drip per weight-based protocol. She is being nourished with vital HP 30 mL/h which is goal. She is currently in sinus rhythm. Yesterday's daily interruption of sedation the patient became quite hypertensive and tachycardic. Plan for DIS again today. Performance improved Pulmicort inhalations. IV Solu-Medrol. Continued on ceftriaxone. Sputum culture was positive for Klebsiella oxytoca and Streptococcus pneumoniae. Blood culture revealed no growth. Urine culture revealed no growth 0.2. Hemoglobin 12.2. Platelets 157. Sodium 140. Potassium 4.3. Bicarb 40. BUN 76. Creatinine 0.77. The patient is seen today September 07, 2024 in follow-up in the intensive care unit. She remains intubated on the mechanical ventilator and assist-control mode at a rate of 20, tidal valve 350, FiO2 40% and a PEEP of 5. Morning blood gases revealed a PaO2 of 82, pCO2 of 64 and a pH of 7.43. She is on a heparin drip per weight-based protocol. Lactated Ringer's at 75 mL/h. Vital HP at 30 mL/h which is goal. Her propofol has been off for over 24 hours. She remains unresponsive. Chest x-ray reveals similar multifocal interstitial opacities. Endotracheal nasogastric tubes in good position. Left triple-lumen catheter in position. Sputum culture was positive for Klebsiella oxytoca and Streptococcus pneumoniae. Blood and urine cultures revealed no growth. White count 16.8. Hemoglobin 13.7. Platelets 175. Sodium 141. Potassium 5.8. Bicarb 40. BUN 70. Creatinine 0.76. Glucose 100. He is continued on DuoNeb inhalations, Pulmicort and Perforomist inhalations, Solu-Medrol. Protonix for GI proph ylaxis. She remains on Levemir and NovoLog sliding scale. She remains on ceftriaxone. She remains in a positive balance of 1.3 L. On 09/08/2024, the patient is being seen for a follow-up. The patient remains intubated on mechanical ventilator. Noted the patient has been off sedation since 09/05/2024 and the patient is very sluggish in response. This was noted yesterday and a CAT scan of the brain was done that showed no acute abnormalities. On today's evaluation, the patient grimaces only to deep painful stimulation. She is able to give me a slight grab using her right hand. Otherwise, she is not following any commands and she is considerably encephalopathic still. She remains on mechanical ventilator assist-control mode with rate of 20, tidal volume of 350, FiO2 40% with a PEEP of 5. Blood gas from today shows a pH of 7.42 with a pCO2 of 68 and pO2 of 72. She has a left sub clavian triple-lumen catheter. Chest x-ray shows a small left-sided pleural effusion and there is diffuse interstitial changes bilaterally. The patient remains hemodynamically stable. The patient is on lactated Ringer at rate of 75 cc an hour. The patient remains on IV Rocephin. The patient remains on IV Solu-Medrol. Cardiac rhythm is sinus. The patient remains on vital high- protein at rate of 30 cc an hour. The blood work from today shows a WBC count of 17 with a heme of 12.3 and a platelet count of 149. Sodium is at 139, bicarb is at 42 with a BUN of 68 and a creatinine of 0.87. The fluid balance is +1.2 L over the past 24 hours and the patient was given a dose of Lasix yesterday with improvement in urine output. The patient remains on Levemir insulin 30 units daily along with a sign scale coverage. 09/09/2024, the patient is being seen for a follow-up. The patient remains neurologically unchanged. Noted the patient has been off sedation and there is no reasonable neurologic recovery. She grimaces only to deep painful stimulation. No seizure activity. EEG was done it was consistent with encephalopathy and diffuse slowing/metabolic encephalopathy. No seizure activ ity has been noted. The patient remains on mechanical ventilator. She is on assist-control mode with rate of 20, tidal volume of 350, FiO2 of 40% with a PEEP of 5. Blood gas showed a pH of 7.47 with a pCO2 of 61 and pO2 of 67. Chest x-ray remains essentially unchanged. IV fluids at KVO. The patient is a normal sinus rhythm. The patient is eating vital high-protein at rate of 40 cc an hour for enteral feeding nutrition support. The fluid balance is negative to 11 cc over the past 24 hours. She has a left subclavian triple-lumen catheter in place. The white cell count is currently up to 35, no clear source of infection. The patient is broad in terms of antibiotic coverage and she was placed on a combination of cefepime and vancomycin. As noted, the chest x-ray shows diffuse interstitial changes bilaterally with small bilateral pleural effusions and background COPD. Of concern, is her ongoing encephalopathy. In terms of her blood work, the white cell count is at 35 with a hemoglobin 12.5 and platelet count of 185. Sodium is at 140, BUN 65 with a creatinine of 0.9 and a sodium level is at 140 and a potassium level is at 5.0. Calcium level is at 8.4. Neurology consultation was obtained.The patient remains on Levemir insulin for blood sugar control and the patient is currently on Levemir insulin 30 units along with NovoLog 10 units 4 times a day and sliding scale coverage. Blood sugar control is adequate at this point in time. 09/10/2024, the patient is being seen for a follow-up. Remains intubated on mechanical ventilator. Neurologically, the patient grimaces only to the painful stimulation. Does not follow any commands. No adequate recovery in the patien t's mentation. The patient remains off sedation for more than 3 days. However, she has required Dilaudid and morphine overnight to maintain synchrony with a mechanical ventilator as the patient was biting on the orotracheal tube. For now, she is calm and comfortable. She is on assist-control mode of mechanical ventilation at rate of 20, tidal volume of 350, FiO2 40% with a PEEP of 5. Blood gas showed a pH of 7.43 with a pCO2 of 58 and pO2 of 72. The patient's cardiac rhythm is sinus. Follow-up chest x-ray from today shows diffuse interstitial markings bilaterally and this is more consistent with volume overload. There was a concern of a ongoing pneumonia and another sputum sample was obtained yesterday and showed positive for Klebsiella oxytoca. The patient remains on a combination of cefepime and vancomycin. The white cell count is improved compared to yesterday and currently down to 24. Hemoglobin 13 with a platelet count of 188. Sodium levels at 139 with a potassium level of 4.8, BUN 61 with a creatinine of 0.7. Calcium level is at 8.3. The patient is on vital high-protein at rate of 60 cc an hour. Procalcitonin level is at 0.2. Overall fluid balance over the past 24 hours is -1.2 L and the patient remains on Lasix 20 mg IV every 12 hours. She is on metoprolol. She is on Entresto. She is on oral amiodarone 200 mg p.o. twice a day. On today's evaluation of 09/11/2024, the patient seems to be more alert. Grimacing to painful stimulation and the patient was able to follow simple commands. Nevertheless, she remains profoundly weak. She remains lethargic. No spontaneous eye opening. She has to be repeatedly stimulated for any response. She remains on a mechanical ventilator. She is on assist-control mode with rate of 20, tidal volume of 300, FiO2 40% with a PEEP of 5. The blood gas showed a pH of 7.42 with a pCO2 of 60 and pO2 of 72. Fluid balance is -74 cc over the past 24 hours. The patient remains on IV Lasix 20 mg every 12 hours. On today's blood work, she has developed some metabolic alkalosis. Sodium levels at 140 with a potassium level of 4.6, chloride is 99 with a bicarb of 40. BUN 16 with a creatinine of 0.7. The white cell count is at 22 with a hemoglobin of 13.8 and a platelet count of 210. The white scale count remains elevated. The chest x-ray findings are essentially unchanged. The patient continues to have increased interstitial markings bilaterally. The lines and the tubes are all in good location. The most recent sputum sample was positive for Klebsiella oxytoca. The blood culture was negative. Hemodynamically stable and she is on no pressors. She is on vital HP at rate of 60 cc an hour. She is also on Levemir insulin and the dose will be modified for a tighter blood sugar control. She remains on oral amiodarone 12 mg p.o. twice a day and metoprolol 50 mg p.o. twice a day. She remains on Entresto. No anticoagulants yet. Objective - Vital Signs Vital signs: Vital Signs Temp 99.1 F 09/11/24 08:00 Pulse 88 09/11/24 08:10 Resp 21 09/11/24 08:00 BP 132/72 09/11/24 08:00 Pulse Ox 95 09/11/24 08:00 FiO2 40 09/11/24 08:00 Intake & Output 09/10/24 09/11/24 09/11/24 18:59 06:59 18:59 Intake Total 1212 1037 132 Output Total 1365 1595 155 Balance -153 -558 -23 Weight 73.4 kg Intake: IV 432 347 42 0.9 3cc/ hr a-line 36 36 6 0.9 3cc/hr cvp 36 36 6 0.9 at KVO 120 45 10 Cefepime 2 gm In Sodium 100 Chloride 0.9% 100 ml @ 25 mls/hr IVPB Q12HR [facility] Rx #:[id number] Lactated Ringers 1,000 ml 240 130 20 @ 20 mls/hr IV .Q24H [facility] Rx#:[id number] Tube Feeding 720 600 60 Other 60 90 30 Output: Urine 1365 1595 155 Other: Voiding Method Indwelling Catheter Indwelling Catheter ABP, PAP, CO, CI - Last Documented Arterial Blood Pressure 152/52 - Exam GENERAL EXAM: Intubated, no sedation for now. Diminished level of consciousness. Orogastric and orotracheal tube are both in place. HEAD: Normocephalic. EYES: Sluggish reaction of pupils, equal size. NOSE: Clear with pink turbinates. THROAT: Oral endotracheal and gastric tube secured in place. No erythema or exudates. NECK: No masses, no JVD. CHEST: No chest wall deformity. Left subclavian triple-lumen catheter in place. LUNGS: Equal air entry with few scattered rhonchi. CVS: S1 and S2 normal with no audible murmur, regular rhythm. ABDOMEN: No hepatosplenomegaly, normal bowel sounds, no guarding or rigidity. SPINE: No scoliosis or deformity SKIN: Areas of ecchymosis and bruising. CENTRAL NERVOUS SYSTEM: Sedated, tone is normal in all 4 extremities. The patient remains encephalopathic. She grimaces to painful stimulation. Some response to verbal stimulation. Remains profoundly weak. Remains lethargic. No spontaneous eye opening. She remains off sedation. EXTREMITIES: Right radial arterial line in place. There is no peripheral edema. Peripheral pulses are intact. - Labs CBC & Chem 7: 09/11/24 04:30 09/11/24 04:30 Labs: Abnormal Lab Results - Last 24 Hours (Table) 09/10/24 09/10/24 09/11/24 Range/Units 11:47 17:58 00:01 WBC (3.8-10.6) k/uL MCV (80.0-100.0) fL Neutrophils # (1.3-7.7) k/uL Lymphocytes # (1.0-4.8) k/uL ABG pCO2 (35-45) mmHg ABG pO2 (83-108) mmHg ABG HCO3 (21-25) mmol/L ABG Total CO2 (19-24) mmol/L Carbon Dioxide (22-30) mmol/L BUN (7-17) mg/dL Glucose (74-99) mg/dL POC Glucose (mg/dL) 139 H 234 H 148 H (70-110) mg/dL Calcium (8.4-10.2) mg/dL 09/11/24 09/11/24 09/11/24 Range/Units 04:30 04:30 05:00 WBC 22.7 H (3.8-10.6) k/uL MCV 106.6 H (80.0-100.0) fL Neutrophils # 21.9 H (1.3-7.7) k/uL Lymphocytes # 0.2 L (1.0-4.8) k/uL ABG pCO2 60 H (35-45) mmHg ABG pO2 77 L (83-108) mmHg ABG HCO3 39 H (21-25) mmol/L ABG Total CO2 41 H (19-24) mmol/L Carbon Dioxide 40 H (22-30) mmol/L BUN 61 H (7-17) mg/dL Glucose 139 H (74-99) mg/dL POC Glucose (mg/dL) (70-110) mg/dL Calcium 8.3 L (8.4-10.2) mg/dL 09/11/24 Range/Units 06:50 WBC (3.8-10.6) k/uL MCV (80.0-100.0) fL Neutrophils # (1.3-7.7) k/uL Lymphocytes # (1.0-4.8) k/uL ABG pCO2 (35-45) mmHg ABG pO2 (83-108) mmHg ABG HCO3 (21-25) mmol/L ABG Total CO2 (19-24) mmol/L Carbon Dioxide (22-30) mmol/L BUN (7-17) mg/dL Glucose (74-99) mg/dL POC Glucose (mg/dL) 130 H (70-110) mg/dL Calcium (8.4-10.2) mg/dL Microbiology - Last 24 Hours (Table) 09/09/24 17:30 Blood Culture - Preliminary Blood 09/09/24 15:30 Urine Culture - Final Urine,Catheterized 09/09/24 12:34 Gram Stain - Preliminary Sputum Sputum Culture - Preliminary Klebsiella oxytoca Assessment and Plan Plan: Acute on chronic hypoxic respiratory failure secondary to a COPD exacerbation, systolic CHF exacerbation, influenza A. The patient required intubation and mechanical ventilatory support on 09/02/2024. The patient remains intubated on mechanical ventilator. Chest x-ray shows diffuse interstitial pattern and small left-sided pleural effusion. Adequate oxygenation and ventilation. Neurologically, the patient has diminished level of consciousness and the patient has been off sedation since 09/05/2024. CAT scan of the brain done on 09/07/2024 showed no acute abnormalities. EEG was done and the patient is showing diffuse encephalopathy and diffuse slowing. No seizure activity has been noted. On today's evaluation, some improvement in level of consciousness and alertness. Nevertheless, this is minimal. The patient is profoundly weak. She occasionally follows simple commands. She remains encephalopathic. Acute influenza A, completed a course of Tamiflu Acute exacerbation of COPD, remains on bronchodilators and systemic steroids Acute on chronic systolic congestive heart failure. The patient has impairment of the LV function with an ejection fraction of 35%, nonischemic cardiomyopathy with moderate degree of mitral regurgitation. Bilateral pneumonia, likely superinfection following influenza A infection and the patient has positive cultures with Streptococcus pneumonia and Klebsiella oxytoca. The patient remains on broad-spectrum antibiotics and the patient is currently on a combination of cefepime and vancomycin. Repeat sputum culture from 09/09/2024 was again positive for Klebsiella oxytoca. Leukocytosis, with further rise in the white cell count. The patient is currently on IV cefepime. White cell count remains elevated Atrial fibrillation with rapid ventricular response, the patient has received cardioversion on 09/07/2024 and the patient is back in normal sinus rhythm.The patient is currently on amiodarone 400 mg p.o. twice a day The patient is also on metoprolol 50 mg twice daily. Cardiac rhythm is sinus as stated. Hemodynamically stable and the patient is currently off pressors. Anticoagulation has been placed on hold in consideration for lumbar puncture specially if the patient's mental status remains unchanged. Alcoholism Acute metabolic encephalopathy secondary to above. The patient remains to have diminished level of consciousness. The patient has been off sedation since 09/05/2024 and the patient had a follow-up CAT scan of the brain done on 09/07/2024 that showed no acute abnormalities. EEG showed encephalopathy and diffuse slowing. Transaminitis, likely secondary to alcoholism Moderate mitral regurgitation Nonischemic cardiomyopathy, EF of 35% Hypertension Dyslipidemia Hypothyroidism Plan: Continue ventilator support, increase the tidal volume to 450 Continue IV Lasix Give the patient Diamox to 50 mg IV push x 2 Change the Levemir dose to 30 units for a tighter blood sugar control in jyotsna tion to a sliding scale coverage. Avoid any form of sedation Monitor mental status Hold anticoagulation in anticipation for a lumbar puncture should the patient's mental status remain unchanged. She may have a component of viral encephalitis as the patient remains encephalopathic and no significant recovery in her mentation over the past 3 to 4 days. Neurology input is appreciated IV fluids are currently at KVO Continue cefepime Monitor the white cell count Repeat cultures are negative. Sputum cultures positive for Klebsiella oxytoca continue diuresis with IV Lasix 40 mg every 12 hours Continue bronchodilators Discontinued IV Solu-Medrol Continue combination of amiodarone, metoprolol and anticoagulation will be placed on hold Continue vital HP for nutritional support We will continue to follow Condition remains quite critical and this evaluation was done in 32 minutes. Evaluation was done in the intensive care unit. Time with Patient: Greater than 30
[2024-09-11 17:37] LABS: Glucose,Whole Blood 111 mg/dL (70-110)
[2024-09-11] MEDS ORDERED: INSULIN DETEMIR (LEVEMIR) 100 UNIT/ML SYR SQ SCH (21:00)
[2024-09-11] MEDS: INSULIN GLARGINE (LANTUS) 100 UNIT/ML SYR SQ SCH (22:57)
[2024-09-12 01:07] LABS: Glucose,Whole Blood 160 mg/dL (70-110)
[2024-09-12 05:01] LABS: Basophils % (A) 0 %; Eosinophils % (A) 0 %; HCT 39.7 % (34.0-46.0); HGB 12.9 gm/dL (11.4-16.0); Lymphocytes # (A) 0.5 k/uL (1.0-4.8); Lymphocytes % (A) 2 %; MCH 34.1 pg (25.0-35.0); MCHC 32.5 g/dL (31.0-37.0); Macrocytosis Moderate; Mean Platelet Volume 9.4; Monocytes % (A) 4 %; Neutrophils # (A) 20.8 k/uL (1.3-7.7); Neutrophils % (A) 93 %; Platelet Count 219 k/uL (150-450); RBC 3.78 m/uL (3.80-5.40); RDW 14.2 % (11.5-15.5); WBC 22.4 k/uL (3.8-10.6)
[2024-09-12 05:09] LABS: African American GFR (CKD) >90 (>60 ml/min/1.73 sqM); Anion Gap -1 mmol/L; Blood Urea Nitrogen 70 mg/dL (7-17); Calcium 8.4 mg/dL (8.4-10.2); Carbon Dioxide 40 mmol/L (22-30); Chloride 100 mmol/L (98-107); Glucose 59 mg/dL (74-99); Non-African American GFR(CKD) 86 (>60 ml/min/1.73 sqM); Potassium 4.2 mmol/L (3.5-5.1); Sodium 139 mmol/L (137-145)
[2024-09-12] MEDS: NOREPINEPHRINE 8 MG in SODIUM CHLORIDE 0.9% 250 ML IV SCH (05:34)
[2024-09-12 06:01] LABS: Glucose,Whole Blood 79 mg/dL (70-110)
[2024-09-12 06:02] LABS: ABG Base Excess 13.3 mmol/L; ABG HCO3 37 mmol/L (21-25); ABG Oxygen Saturation 98.3 % (94-97); ABG PCO2 44 mmHg (35-45); ABG PH 7.54 (7.35-7.45); ABG PO2 98 mmHg (83-108); ABG TCO2 39 mmol/L (19-24); Allen Test Performed? Yes
--- NOTE | 2024-09-12 07:46 | P.PN ---
Subjective Progress Note Date: 09/12/24 PROGRESS NOTE The patient is a 74-year-old female with known history of COPD, nonischemic cardiomyopathy, permanent atrial fibrillation with attempted cardioversion in May 2023 who presented with progressive dyspnea and worsening peripheral edema, was diagnosed with influenza A infection. She had worsening of her respiratory status requiring mechanical ventilation. She remains intubated, good urine output and tolerating feeding. She has no evidence of malignant arrhythmia. Her echocardiogram and admission showed an ejection fraction of 35% with mild to moderate tricuspid regurgitation and severe pulmonary hypertension that has been documented in the past. She is in sinus mechanism at this time. She underwent CT scan of the head that showed no evidence of acute events. September 09: The patient remains intubated, not following verbal command. She is in sinus mechanism on no vasopressors. Her urinary output has been good. She has been evaluated by the neurology service for her mental status and felt probably to have metabolic encephalopathy. There is no evidence of recurrent atrial fibrillation. She continues to be in sinus mechanism. September 10: The patient remains intubated and sedated, in sinus mechanism. Hemodynamically stable. She had an echocardiogram that showed an ejection fraction of 40 to 45% with moderate severe pulmonary hypertension and dilated right ventricle and mild to moderate tricuspid regurgitation. She remains unresponsive and is being evaluated by the neurology service September 11: The patient remains intubated, not following command clearly. She continues to be in sinus mechanism. She continues to be of anticoagulation because of possible lumbar puncture today. Hemodynamically she is stable. Her urinary output is stable. She had no evidence of ventricular tachyarrhythmia. Her chest x-ray shows no significant changes. September 12: The patient remains intubated but is opening her eyes to verbal stimulation. She continues to be in sinus mechanism, hemodynamically stable. There is no evidence of ventricular ectopic activity. Her chest x-ray shows evidence of right-sided effusion. She did not undergo a LP. She continues to be off anticoagulation. Medications: Amiodarone 200 mg twice a day, insulin, metoprolol tartrate 50 mg twice a day, Solu-Medrol, thiamine Lasix 20 mg IV every 12 hours Entresto 24-26 mg twice a day. Her anticoagulation is on hold for possible lumbar puncture PHYSICAL EXAMINATION: Blood pressure 123/55 heart rate 93, intubated, opening her eyes to verbal stimulation LUNGS: Clear to auscultation anteriorly HEART: Regular rate and rhythm, S1, S2. No S3. Systolic ejection murmur ABDOMEN: Soft, positive bowel sounds, no organomegaly EXTREMETIES: No edema LAB: Hemoglobin 12.9, WBC 22.4, potassium 4.2, BUN 70.71, creatinine 0.73 IMPRESSION: 1. Respiratory failure with COPD exacerbation, influenza A and history of CHF with reduced ejection fraction 2. Chronic cardiomyopathy, nonischemic, 3. Atrial fibrillation, maintaining sinus mechanism, status post cardioversion 4. Prior history of alcohol intake 5. Streptococcus pneumonia with leukocytosis 6. Prior history of hypertension 7. Metabolic encephalopathy. PLAN: 1. Continue present therapy 2. Neurowork-up for evaluation of mental status and possible LP today 3. Restart anticoagulation once LP is done 4. Follow blood pressure and adjust medication accordingly Objective - Vital Signs Vital signs: Vital Signs Temp 98.6 F 09/12/24 04:00 Pulse 93 09/12/24 07:00 Resp 22 09/12/24 07:00 BP 123/55 09/12/24 07:00 Pulse Ox 96 09/12/24 07:00 FiO2 40 09/12/24 04:00 Intake & Output 09/11/24 09/12/24 09/12/24 18:59 06:59 18:59 Intake Total 962 1052 76 Output Total 1000 873 85 Balance -38 179 -9 Weight 73.4 kg 72.393 kg Intake: IV 252 332 21 0.9 3cc/ hr a-line 36 36 3 0.9 3cc/hr cvp 36 36 3 0.9 at KVO 60 40 5 Cefepime 2 gm In Sodium 100 Chloride 0.9% 100 ml @ 25 mls/hr IVPB Q12HR [facility] Rx #:[id number] Lactated Ringers 1,000 ml 120 120 10 @ 20 mls/hr IV .Q24H [facility] Rx#:[id number] Tube Feeding 620 660 55 Other 90 60 Output: Urine 1000 873 85 Other: Voiding Method Indwelling Catheter Indwelling Catheter ABP, PAP, CO, CI - Last Documented Arterial Blood Pressure 121/51 - Labs CBC & Chem 7: 09/12/24 04:50 09/12/24 04:50 Labs: Abnormal Lab Results - Last 24 Hours (Table) 09/11/24 09/11/24 09/12/24 Range/Units 11:49 17:36 01:05 WBC (3.8-10.6) k/uL RBC (3.80-5.40) m/uL MCV (80.0-100.0) fL Neutrophils # (1.3-7.7) k/uL Lymphocytes # (1.0-4.8) k/uL ABG pH (7.35-7.45) ABG HCO3 (21-25) mmol/L ABG Total CO2 (19-24) mmol/L ABG O2 Saturation (94-97) % Carbon Dioxide (22-30) mmol/L BUN (7-17) mg/dL Glucose (74-99) mg/dL POC Glucose (mg/dL) 157 H 111 H 160 H (70-110) mg/dL 09/12/24 09/12/24 09/12/24 Range/Units 04:50 04:50 05:56 WBC 22.4 H (3.8-10.6) k/uL RBC 3.78 L (3.80-5.40) m/uL MCV 105.0 H (80.0-100.0) fL Neutrophils # 20.8 H (1.3-7.7) k/uL Lymphocytes # 0.5 L (1.0-4.8) k/uL ABG pH 7.54 H (7.35-7.45) ABG HCO3 37 H (21-25) mmol/L ABG Total CO2 39 H (19-24) mmol/L ABG O2 Saturation 98.3 H (94-97) % Carbon Dioxide 40 H (22-30) mmol/L BUN 70 H (7-17) mg/dL Glucose 59 L (74-99) mg/dL POC Glucose (mg/dL) (70-110) mg/dL Microbiology - Last 24 Hours (Table) 09/09/24 17:30 Blood Culture - Preliminary Blood 09/09/24 12:34 Gram Stain - Final Sputum Sputum Culture - Final Klebsiella oxytoca
--- NOTE | 2024-09-12 08:11 | XR ---
EXAMINATION TYPE: XR chest 1V portable DATE OF EXAM: 09/12/2024 5:00 AM COMPARISON: Multiple radiographs, with the most recent on 09/11/2024 TECHNIQUE: XR chest 1V portable Portable AP radiograph of the chest. CLINICAL INDICATION:Female, 74 years old with history of mechanical ventilation; FINDINGS: Lungs/Pleura: No pneumothorax. Increasing small right pleural effusion. Persistent diffuse interstiti al opacities. Hyperinflation. Left basilar linear atelectasis. Heart/mediastinum: Cardiomediastinal silhouette is prominent in size. Atherosclerotic calcifications are seen in the aorta. Musculoskeletal: No acute osseous pathology. Lines/Tubes: Endotracheal tube with distal tip 5.5 cm above the charles Nasogastric tube with its distal tip and side-port projecting under the diaphragm and projecting over the gastric lumen. Left subclavian approach central venous catheter with distal tip at the superior cavoatrial junction. IMPRESSION: 1. Similar diffuse interstitial changes with increasing small right pleural effusion. 2. Stable support lines and tubes. 3. COPD changes. [facility], , 09/12/2024 8:09 AM
[2024-09-12] MEDS: CEFEPIME 2 GM in SODIUM CHLORIDE 0.9% 100 ML IVPB SCH (09:45)
--- NOTE | 2024-09-12 10:51 | P.PN ---
Subjective Progress Note Date: 09/11/24 09/11/2024: Patient was seen for follow-up. Patient is in the bed. Patient is off sedation. Patient is on hold for Eliquis for possible lumbar puncture. 09/10/2024: Patient was seen for a follow-up. Patient has been off sedation for last 48 hours. Prior to that, she has been sporadically on low-dose propofol 10 mcg/kg's per minute. Patient is currently on cefepime and vancomycin. She turns her head, nurse does not follow commands. Sometimes fluttering her eyes. Patient has Klebsiella and Streptococcus pneumonia in the sputum with elevated white cells. Patient on antibiotics. ID following. Patient has atrial fibrillation with RVR. Eliquis on hold because patient is undergoing LP tomorrow. Per nurse report, patient was admitted on 08/28/2024 for shortness of breath, blood pressure issues. She was admitted to 3 . An A-team was called for patient with altered mental status, hallucinations and appeared patient has history of alcoholism. She was started on CIWA protocol. Patient was intubated on 09/02/2024. She is also influenza positive. Objective - Vital Signs Vital signs: Vital Signs Temp 98.6 F 09/12/24 04:00 Pulse 93 09/12/24 07:00 Resp 22 09/12/24 07:00 BP 123/55 09/12/24 07:00 Pulse Ox 96 09/12/24 07:00 FiO2 40 09/12/24 10:02 Intake & Output 09/11/24 09/12/24 09/12/24 18:59 06:59 18:59 Intake Total 962 1052 76 Output Total 1000 873 85 Balance -38 179 -9 Weight 73.4 kg 72.393 kg Intake: IV 252 332 21 0.9 3cc/ hr a-line 36 36 3 0.9 3cc/hr cvp 36 36 3 0.9 at KVO 60 40 5 Cefepime 2 gm In Sodium 100 Chloride 0.9% 100 ml @ 25 mls/hr IVPB Q12HR [facility] Rx #:[id number] Lactated Ringers 1,000 ml 120 120 10 @ 20 mls/hr IV .Q24H [facility] Rx#:[id number] Tube Feeding 620 660 55 Other 90 60 Output: Urine 1000 873 85 Other: Voiding Method Indwelling Catheter Indwelling Catheter ABP, PAP, CO, CI - Last Documented Arterial Blood Pressure 121/51 - Exam Patient is off sedation for last 72 hours. She sometimes moves her head [id number]. Patient grimaces with painful stimuli, equally with all 4 extremities. Does not follow commands otherwise. Her eyes are partly open, but she is very encephalopathic. Rest of the examination is unchanged. - Labs CBC & Chem 7: 09/12/24 04:50 09/12/24 04:50 Labs: Abnormal Lab Results - Last 24 Hours (Table) 09/11/24 09/11/24 09/12/24 Range/Units 11:49 17:36 01:05 WBC (3.8-10.6) k/uL RBC (3.80-5.40) m/uL MCV (80.0-100.0) fL Neutrophils # (1.3-7.7) k/uL Lymphocytes # (1.0-4.8) k/uL ABG pH (7.35-7.45) ABG HCO3 (21-25) mmol/L ABG Total CO2 (19-24) mmol/L ABG O2 Saturation (94-97) % Carbon Dioxide (22-30) mmol/L BUN (7-17) mg/dL Glucose (74-99) mg/dL POC Glucose (mg/dL) 157 H 111 H 160 H (70-110) mg/dL 09/12/24 09/12/24 09/12/24 Range/Units 04:50 04:50 05:56 WBC 22.4 H (3.8-10.6) k/uL RBC 3.78 L (3.80-5.40) m/uL MCV 105.0 H (80.0-100.0) fL Neutrophils # 20.8 H (1.3-7.7) k/uL Lymphocytes # 0.5 L (1.0-4.8) k/uL ABG pH 7.54 H (7.35-7.45) ABG HCO3 37 H (21-25) mmol/L ABG Total CO2 39 H (19-24) mmol/L ABG O2 Saturation 98.3 H (94-97) % Carbon Dioxide 40 H (22-30) mmol/L BUN 70 H (7-17) mg/dL Glucose 59 L (74-99) mg/dL POC Glucose (mg/dL) (70-110) mg/dL Microbiology - Last 24 Hours (Table) 09/09/24 17:30 Blood Culture - Preliminary Blood 09/09/24 12:34 Gram Stain - Final Sputum Sputum Culture - Final Klebsiella oxytoca Assessment and Plan Assessment: Altered mental status, likely due to toxic metabolic encephalopathy. Reasons multifactorial as mentioned below Elevated pCO2, 65, now 58. Acute kidney injury, resolved Ventilatory dependent respiratory failure COPD exacerbation CHF exacerbation Acute influenza A, completed course of Tamiflu Bilateral pneumonia Septic shock, due to Klebsiella pneumonia, resolved Leukocytosis Atrial fibrillation with rapid ventricular response History of alcoholism Moderate MR Nonischemic cardiomyopathy with EF 35% Hypertension Hyperlipidemia Hypothyroidism Plan: * Patient is not showing much improvement clinically. Continues to be severely encephalopathic. * EEG 09/08/2024 was abnormal, due to background slowing of moderate to severe degree. This is suggestive of generalized cerebral dysfunction as can be seen with toxic metabolic encephalopathy or related to diffuse structural brain abnormality. Clinical correlation is recommended. No epileptiform activity was seen. * CT head 09/07/2024 showed no acute process. * Medical management as per IM, critical care and other specialties on board. * Patient on Eliquis, currently on hold, for possible lumbar puncture. Recommend bridging with Lovenox while Eliquis is on hold. Discussed with ICU resident. * Hopefully patient's mentation will improve, once metabolic conditions comes under control.
[2024-09-12 11:58] LABS: Glucose,Whole Blood 116 mg/dL (70-110)
--- NOTE | 2024-09-12 13:19 | P.GSCN ---
History of Present Illness Consult date: 09/12/24 History of present illness: CHIEF COMPLAINT: Shortness of breath HISTORY OF PRESENT ILLNESS: This is a 74-year-old female presented with shortness of breath with respiratory failure. She was diagnosed with COPD exacerbation, CHF exacerbation EF 35% and influenza A. She is in the ICU intubated on mechanical ventilation. She was hospitalized since August 28. Patient was intubated on September 02, 2024. Patient has been unable to be weaned from the vent. Surgical service has been consulted for tracheostomy and PEG tube placement. Patient does remain on small dose of Levophed. PAST MEDICAL HISTORY: Atrial fibrillation, heart failure, COPD, hypertension PAST SURGICAL HISTORY: , hysterectomy MEDICATIONS: See below ALLERGIES: See below SOCIAL HISTORY: No illicit drug use. EtOH use daily REVIEW OF SYSTEMS: CONSTITUTIONAL: Denies fever or chills. HEENT: Denies blurred vision, vision changes, or eye pain. Denies hemoptysis CARDIOVASCULAR: Denies chest pain or pressure. RESPIRATORY: No shortness of breath. GASTROINTESTINAL: See HPI for pertinent findings HEMATOLOGIC: Denies bleeding disorders. GENITOURINARY: Denies any blood in urine or increased urinary frequency. SKIN: Denies pruitis. Denies rash. PHYSICAL EXAM: VITAL SIGNS: Reviewed GENERAL: no acute distress. HEENT: Neck supple ABDOMEN: Soft. Nondistended. Old midline surgical scar lower abdomen NEUROLOGIC: Intubated and sedated LABORATORY DATA: WBC 22.4 Hgb 12.9 platelets 219 Sodium 139 potassium 4.2 creatinine 0.71 Albumin 2.8 IMAGING: ASSESSMENT: 1. Acute hypoxic respiratory failure and unable to wean from the vent 2. Severe protein calorie malnutrition 3. COPD exacerbation, CHF exacerbation and influenza A PLAN: -Patient scheduled for tracheostomy and PEG tube placement on 09/15/[address] Tobin -Hold tube feeds after midnight on Sunday [employer] Program[employer] note has been reviewed by physician. Signing provider agrees with the documented findings, assessment, and plan of care. Past Medical History Past Medical History: Atrial Fibrillation, Heart Failure, COPD, Hypertension History of Any Multi-Drug Resistant Organisms: None Reported Past Surgical History: Section, Hysterectomy Additional Past Surgical History / Comment(s): cataracts Past Anesthesia/Blood Transfusion Reactions: No Reported Reaction Past Psychological History: No Psychological Hx Reported Smoking Status: Former smoker Past Alcohol Use History: Daily Additional Past Alcohol Use History / Comment(s): glass of wine or rum & coke daily Past Drug Use History: Marijuana - Past Family History Mother Additional Family Medical History / Comment(s): Wegeners disease Father Family Medical History: Congestive Heart Failure (CHF) Medications and Allergies Home Medications Medication Instructions Recorded Confirmed Type Furosemide [Lasix] 20 mg PO DAILY #90 tab 06/21/23 08/28/24 Rx Losartan [Cozaar] 12.5 mg PO DAILY #90 tab 06/21/23 08/28/24 Rx Metoprolol Tartrate [Lopressor] 50 mg PO BID #180 tab 06/21/23 08/28/24 Rx Albuterol Inhaler [Ventolin Hfa 2 puff INHALATION RT-Q4H 08/17/23 08/28/24 History Inhaler] Warfarin [Coumadin] 2.5 mg PO [id number] 08/17/23 08/28/24 History Warfarin [Coumadin] 5 mg PO MOTH 10/31/23 08/28/24 History Amiodarone [Cordarone] 100 mg PO DAILY 08/28/24 08/28/24 History Budesonide/Glycopyr/Formoterol 2 puff INHALATION RT-BID 08/28/24 08/28/24 History [Breztri Aerosphere Inhaler] Ipratropium-Albuterol Nebulize 3 ml INHALATION RT-QID 08/28/24 08/28/24 History [Duoneb 0.5 mg-3 mg/3 ml Soln] Levothyroxine Sodium [Synthroid] 100 mcg PO DAILY 08/28/24 08/28/24 History Spironolactone [Aldactone] 25 mg PO DAILY 08/28/24 08/28/24 History Allergies Allergy/AdvReac Type Severity Reaction Status Date / Time No Known Allergies Allergy Verified 08/28/24 18:46 Surgical - Exam Vital Signs Temp Pulse Resp BP Pulse Ox 101.2 F H 105 H 45 H 142/82 99 08/28/24 17:50 08/28/24 17:50 08/28/24 17:50 08/28/24 17:50 08/28/24 17:50 Results - Labs 09/12/24 04:50 09/12/24 04:50 Abnormal Lab Results - Last 24 Hours (Table) 09/11/24 09/12/24 09/12/24 Range/Units 17:36 01:05 04:50 WBC 22.4 H (3.8-10.6) k/uL RBC 3.78 L (3.80-5.40) m/uL MCV 105.0 H (80.0-100.0) fL Neutrophils # 20.8 H (1.3-7.7) k/uL Lymphocytes # 0.5 L (1.0-4.8) k/uL ABG pH (7.35-7.45) ABG HCO3 (21-25) mmol/L ABG Total CO2 (19-24) mmol/L ABG O2 Saturation (94-97) % Carbon Dioxide (22-30) mmol/L BUN (7-17) mg/dL Glucose (74-99) mg/dL POC Glucose (mg/dL) 111 H 160 H (70-110) mg/dL 09/12/24 09/12/24 09/12/24 Range/Units 04:50 05:56 11:57 WBC (3.8-10.6) k/uL RBC (3.80-5.40) m/uL MCV (80.0-100.0) fL Neutrophils # (1.3-7.7) k/uL Lymphocytes # (1.0-4.8) k/uL ABG pH 7.54 H (7.35-7.45) ABG HCO3 37 H (21-25) mmol/L ABG Total CO2 39 H (19-24) mmol/L ABG O2 Saturation 98.3 H (94-97) % Carbon Dioxide 40 H (22-30) mmol/L BUN 70 H (7-17) mg/dL Glucose 59 L (74-99) mg/dL POC Glucose (mg/dL) 116 H (70-110) mg/dL Microbiology - Last 24 Hours (Table) 09/09/24 17:30 Blood Culture - Preliminary Blood 09/09/24 12:34 Gram Stain - Final Sputum Sputum Culture - Final Klebsiella oxytoca Diabetes panel 09/12/24 Range/Units 04:50 Sodium 139 (137-145) mmol/L Potassium 4.2 (3.5-5.1) mmol/L Chloride 100 (98-107) mmol/L Carbon Dioxide 40 H (22-30) mmol/L BUN 70 H (7-17) mg/dL Creatinine 0.71 (0.52-1.04) mg/dL Glucose 59 L (74-99) mg/dL Calcium 8.4 (8.4-10.2) mg/dL Calcium panel 09/12/24 Range/Units 04:50 Calcium 8.4 (8.4-10.2) mg/dL Pituitary panel 09/12/24 Range/Units 04:50 Sodium 139 (137-145) mmol/L Potassium 4.2 (3.5-5.1) mmol/L Chloride 100 (98-107) mmol/L Carbon Dioxide 40 H (22-30) mmol/L BUN 70 H (7-17) mg/dL Creatinine 0.71 (0.52-1.04) mg/dL Glucose 59 L (74-99) mg/dL Calcium 8.4 (8.4-10.2) mg/dL Adrenal panel 09/12/24 Range/Units 04:50 Sodium 139 (137-145) mmol/L Potassium 4.2 (3.5-5.1) mmol/L Chloride 100 (98-107) mmol/L Carbon Dioxide 40 H (22-30) mmol/L BUN 70 H (7-17) mg/dL Creatinine 0.71 (0.52-1.04) mg/dL Glucose 59 L (74-99) mg/dL Calcium 8.4 (8.4-10.2) mg/dL
--- NOTE | 2024-09-12 14:39 | P.PN ---
Subjective Progress Note Date: 09/12/24 This is a 74-year-old female, familiar to my service, patient is known to have history of COPD, severe, history of chronic cor pulmonale, history of nonischemic cardiomyopathy and LV dysfunction as well as history of chronic atrial fibrillation maintained on Coumadin. Patient is also known to have histo ry of moderate mitral regurgitation. Patient is normally on oxygen at 2 L/min, she is normally on diuretics, and she was very seen about a week ago in my office with worsening swelling of her lower extremities, and patient was placed on Aldactone in addition to her Lasix. Her leg swelling improved, however patient came into the ER on 08/28/2024, came in mostly with worsening shortness of breath, cough, wheezing, apparently when she was brought in by EMS she was found to be in tripod position and she was breathing quite heavy. Patient was placed on BiPAP, that seemed to improve her pulmonary status significantly on BiPAP. In the ER, patient was noted to have positive screening for acute influenza A. Last night I was notified about this patient about her shortness of breath and being BiPAP dependent, patient is known to have history of alcohol drinking, and there was also a concern about the patient going into alcohol withdrawal. Patient required some Ativan, admitted to the ICU for close monitoring. I was asked to see her in consultation. In addition to her COPD, patient had positive screening for influenza A. Today I saw the patient in the ICU, she is still on BiPAP 12/5/40%, patient is receiving Lasix, she is also on Aldactone, patient is on Tamiflu, and she is on her usual bronchodilators and on Solu-Medrol. WBC count is 11.9 hemoglobin 12.3 INR is 3.1 electrolytes are normal renal profile is normal troponin is less than 0.012 Evaluated today on 08/31/2024, patient remains in the ICU, patient is on 4 L nasal cannula, last night she was on BiPAP 12/5/40%, patient remains on bronchodilators, Lasix, Coumadin, and she is also on doxycycline. Baseline FEV1 from my office chart is 42% at best. Clearly the patient has severe underlying COPD. Patient is now on nasal cannula, had to be on BiPAP yesterday. Chest x- ray today is suggestive of interstitial edema, underlying pneumonia is felt to be less likely but not entirely ruled out. WBC count is 11.4 hemoglobin is 14.3 INR is 3.3 electrolytes are normal bicarb is 4 0 BUN is 27 creatinine 0.66 The patient is seen today September 01, 2024 in follow-up in the intensive care unit. She is currently sitting up in bed. She is quite restless. Moving from [id number]. She was on BiPAP 12/5 and 40% FiO2. She is currently on 4 L nasal cannula. Her O2 saturation did drop into the 70s when she had her oxygen off. She did require Ativan throughout the night. Recent arterial blood gases revealed a PH of 69, pCO2 79 and a pH of 7.38. She is continued on DuoNeb inhalations, Symbicort, Solu-Medrol. Empiric antibiotics in the form of doxycycline. She remains on IV diuretics. Remains on the CIID protocol. Anticoagulated with warfarin. White count 11.4. Hemoglobin 14.4. Platelets 169. INR 4.8. Sodium 150. Potassium 3.9. Bicarb 45. BUN 39. Creatinine 0.67. Chest x-ray reveals similar moderate interstitial opacities. The patient is seen today September 02, 2024 in follow-up in the intensive care unit. Throughout the night and early this morning she became more obtunded. She was maintained on BiPAP 12/5 and 50% FiO2. PaO2 of 90, pCO2 of 97 and a pH of 7.34. She subsequently had undergone intubation and mechanical ventilatory support. She is currently on assist-control mode at a rate of 20, tidal volume 350, FiO2 100% and a PEEP of 5. Follow-up blood gases revealed a PaO2 of 332, pCO2 75 and a pH of 7.43. The FiO2 was decreased to 40%. White count 11.4. Hemoglobin 14.7. Platelets 173. Sodium 150. Potassium 4.2. Bicarb 47. BUN 59. Creatinine 0.67. Glucose 378. AST 50. ALT 58. Amiodarone at 0.5 mg/h. Her INR was 7.2. She did receive vitamin K. She is requiring norepinephrine at 0.03 mcg/kg/min. Propofol at 15 mcg/kg/min. Continued on DuoNeb inhalations, S ymbicort, doxycycline. Chest x-ray shows evidence of COPD with superimposed pulmonary vascular congestion. Ongoing patchy left basilar and retrocardiac opacity. The patient is seen today September 03, 2024 in follow-up in the intensive care unit. She remains intubated on mechanical ventilator. Currently on assist- control mode with a rate of 20, tidal volume 350, FiO2 40% and a PEEP of 5. Morning blood gases revealed a PaO2 of 83, pCO2 of 80 and a pH of 7.38. She is still having issues with atrial fibrillation with rapid ventricular response. She is on a amiodarone drip at 1 mg/min. Remains on norepinephrine at 3.4 mcg/min. D5W at 125 mL/h. Propofol at 20 mcg/kg/min. Insulin drip at 6 units/h. She is being nourished with vital HP at 30 mL/h with a goal of 38. Chest x-ray reveals diffuse interstitial changes on a background of COPD. Small left pleural effusion. Retrocardiac consolidation/atelectasis. Blood culture reveals no growth. Sputum culture reveals no growth to date. 14.5. Platelets 222. INR 1.6. Sodium 136. Potassium 3.8. Bicarb 45. BUN 70. Creatinine 0 .91. Glucose 213. She remains on DuoNeb and elations, Pulmicort and Perforomist inhalations, IV Solu-Medrol. Remains on warfarin. Remains on Protonix. The patient is seen today September 04, 2024 in follow-up in the intensive care unit. She remains intubated on the mechanical ventilator. Currently on assist- control mode with a rate of 20, tidal volume 350, FiO2 40% and a PEEP of 5. Morning blood gases revealed a PaO2 of 76, pCO2 77 and a pH of 7.36. She remains in atrial fibrillation with a rapid ventricular response and an undergone cardioversion this a.m. with 200 J and is currently back in sinus rhythm. She remains on amiodarone drip at 0.5 mg/min. Heparin drip per weight- based protocol. Sedated with propofol at 30 mcg/kg/min. Norepinephrine at 1 mcg/min. Lactated Ringer's at 75 mL/h. She is being nourished with vital HP at 38 mL/h which is goal. She is continued on DuoNeb and elations, Pulmicort and Perforomist inhalations, IV Solu-Medrol. Protonix for GI prophylaxis. Remains on doxycycline. Sputum culture now revealing Streptococcus pneumoniae. White count 13.8. Hemoglobin 13.9. Platelets 157. INR 1.3. Sodium 132. Potassium 4.9. Bicarb 35. BUN 89. Creatinine 0.95. Glucose 178. The patient is seen today September 05, 2024 in follow-up in the intensive care unit. She remains intubated on the mechanical ventilator. Currently on assist- control mode with a rate of 20, tidal valve 350, FiO2 40% and a PEEP of 5. Morning blood gases revealed a PaO2 of 87, pCO2 of 73 and a pH of 7.38. Chest x-ray reveals cardiomegaly with small left pleural effusion. She is sedated on propofol at 30 mcg/kg/min. Remains on norepinephrine at 2 mcg/min. Continued on a heparin drip per weight-based protocol. Lactated Ringer's at 75 mL/h. She is being nourished with vital HP at 30 mL/h which is goal. She is continued on ceftriaxone. Sputum culture was positive for Klebsiella oxytoca and Streptococcus pneumoniae. Blood culture revealed no growth. Urine culture revealed no growth. White count 16.0. Hemoglobin 12.8. Platelets 147. Sodium 136. Potassium 4.7. Bicarb 40. BUN 84. Creatinine 0.94. Glucose 176. She is maintained on DuoNeb inhalations, Pulmicort and Perforomist inhalations, Solu-Medrol. Protonix for GI prophylaxis. The patient is seen today September 06, 2019 tidal valve 350, FiO2 40% and a PEEP of 5. Morning blood gases revealed a PaO2 of 79, pCO2 of 66 and a pH of 7.43. She is sedated with propofol 25 mcg/kg/min. Currently on norepinephrine at 2.1 mcg/min. Lactated Ringer's at 75 mL/h. Heparin drip per weight-based protocol. She is being nourished with vital HP 30 mL/h which is goal. She is currently in sinus rhythm. Yesterday's daily interruption of sedation the patient became quite hypertensive and tachycardic. Plan for DIS again today. Performance improved Pulmicort inhalations. IV Solu-Medrol. Continued on ceftriaxone. Sputum culture was positive for Klebsiella oxytoca and Streptococcus pneumoniae. Blood culture revealed no growth. Urine culture revealed no growth 0.2. Hemoglobin 12.2. Platelets 157. Sodium 140. Potassium 4.3. Bicarb 40. BUN 76. Creatinine 0.77. The patient is seen today September 07, 2024 in follow-up in the intensive care unit. She remains intubated on the mechanical ventilator and assist-control mode at a rate of 20, tidal valve 350, FiO2 40% and a PEEP of 5. Morning blood gases revealed a PaO2 of 82, pCO2 of 64 and a pH of 7.43. She is on a heparin drip per weight-based protocol. Lactated Ringer's at 75 mL/h. Vital HP at 30 mL/h which is goal. Her propofol has been off for over 24 hours. She remains unresponsive. Chest x-ray reveals similar multifocal interstitial opacities. Endotracheal nasogastric tubes in good position. Left triple-lumen catheter in position. Sputum culture was positive for Klebsiella oxytoca and Streptococcus pneumoniae. Blood and urine cultures revealed no growth. White count 16.8. Hemoglobin 13.7. Platelets 175. Sodium 141. Potassium 5.8. Bicarb 40. BUN 70. Creatinine 0.76. Glucose 100. He is continued on DuoNeb inhalations, Pulmicort and Perforomist inhalations, Solu-Medrol. Protonix for GI proph ylaxis. She remains on Levemir and NovoLog sliding scale. She remains on ceftriaxone. She remains in a positive balance of 1.3 L. On 09/08/2024, the patient is being seen for a follow-up. The patient remains intubated on mechanical ventilator. Noted the patient has been off sedation since 09/05/2024 and the patient is very sluggish in response. This was noted yesterday and a CAT scan of the brain was done that showed no acute abnormalities. On today's evaluation, the patient grimaces only to deep painful stimulation. She is able to give me a slight grab using her right hand. Otherwise, she is not following any commands and she is considerably encephalopathic still. She remains on mechanical ventilator assist-control mode with rate of 20, tidal volume of 350, FiO2 40% with a PEEP of 5. Blood gas from today shows a pH of 7.42 with a pCO2 of 68 and pO2 of 72. She has a left sub clavian triple-lumen catheter. Chest x-ray shows a small left-sided pleural effusion and there is diffuse interstitial changes bilaterally. The patient remains hemodynamically stable. The patient is on lactated Ringer at rate of 75 cc an hour. The patient remains on IV Rocephin. The patient remains on IV Solu-Medrol. Cardiac rhythm is sinus. The patient remains on vital high- protein at rate of 30 cc an hour. The blood work from today shows a WBC count of 17 with a heme of 12.3 and a platelet count of 149. Sodium is at 139, bicarb is at 42 with a BUN of 68 and a creatinine of 0.87. The fluid balance is +1.2 L over the past 24 hours and the patient was given a dose of Lasix yesterday with improvement in urine output. The patient remains on Levemir insulin 30 units daily along with a sign scale coverage. 09/09/2024, the patient is being seen for a follow-up. The patient remains neurologically unchanged. Noted the patient has been off sedation and there is no reasonable neurologic recovery. She grimaces only to deep painful stimulation. No seizure activity. EEG was done it was consistent with encephalopathy and diffuse slowing/metabolic encephalopathy. No seizure activ ity has been noted. The patient remains on mechanical ventilator. She is on assist-control mode with rate of 20, tidal volume of 350, FiO2 of 40% with a PEEP of 5. Blood gas showed a pH of 7.47 with a pCO2 of 61 and pO2 of 67. Chest x-ray remains essentially unchanged. IV fluids at KVO. The patient is a normal sinus rhythm. The patient is eating vital high-protein at rate of 40 cc an hour for enteral feeding nutrition support. The fluid balance is negative to 11 cc over the past 24 hours. She has a left subclavian triple-lumen catheter in place. The white cell count is currently up to 35, no clear source of infection. The patient is broad in terms of antibiotic coverage and she was placed on a combination of cefepime and vancomycin. As noted, the chest x-ray shows diffuse interstitial changes bilaterally with small bilateral pleural effusions and background COPD. Of concern, is her ongoing encephalopathy. In terms of her blood work, the white cell count is at 35 with a hemoglobin 12.5 and platelet count of 185. Sodium is at 140, BUN 65 with a creatinine of 0.9 and a sodium level is at 140 and a potassium level is at 5.0. Calcium level is at 8.4. Neurology consultation was obtained.The patient remains on Levemir insulin for blood sugar control and the patient is currently on Levemir insulin 30 units along with NovoLog 10 units 4 times a day and sliding scale coverage. Blood sugar control is adequate at this point in time. 09/10/2024, the patient is being seen for a follow-up. Remains intubated on mechanical ventilator. Neurologically, the patient grimaces only to the painful stimulation. Does not follow any commands. No adequate recovery in the patien t's mentation. The patient remains off sedation for more than 3 days. However, she has required Dilaudid and morphine overnight to maintain synchrony with a mechanical ventilator as the patient was biting on the orotracheal tube. For now, she is calm and comfortable. She is on assist-control mode of mechanical ventilation at rate of 20, tidal volume of 350, FiO2 40% with a PEEP of 5. Blood gas showed a pH of 7.43 with a pCO2 of 58 and pO2 of 72. The patient's cardiac rhythm is sinus. Follow-up chest x-ray from today shows diffuse interstitial markings bilaterally and this is more consistent with volume overload. There was a concern of a ongoing pneumonia and another sputum sample was obtained yesterday and showed positive for Klebsiella oxytoca. The patient remains on a combination of cefepime and vancomycin. The white cell count is improved compared to yesterday and currently down to 24. Hemoglobin 13 with a platelet count of 188. Sodium levels at 139 with a potassium level of 4.8, BUN 61 with a creatinine of 0.7. Calcium level is at 8.3. The patient is on vital high-protein at rate of 60 cc an hour. Procalcitonin level is at 0.2. Overall fluid balance over the past 24 hours is -1.2 L and the patient remains on Lasix 20 mg IV every 12 hours. She is on metoprolol. She is on Entresto. She is on oral amiodarone 200 mg p.o. twice a day. On today's evaluation of 09/11/2024, the patient seems to be more alert. Grimacing to painful stimulation and the patient was able to follow simple commands. Nevertheless, she remains profoundly weak. She remains lethargic. No spontaneous eye opening. She has to be repeatedly stimulated for any response. She remains on a mechanical ventilator. She is on assist-control mode with rate of 20, tidal volume of 300, FiO2 40% with a PEEP of 5. The blood gas showed a pH of 7.42 with a pCO2 of 60 and pO2 of 72. Fluid balance is -74 cc over the past 24 hours. The patient remains on IV Lasix 20 mg every 12 hours. On today's blood work, she has developed some metabolic alkalosis. Sodium levels at 140 with a potassium level of 4.6, chloride is 99 with a bicarb of 40. BUN 16 with a creatinine of 0.7. The white cell count is at 22 with a hemoglobin of 13.8 and a platelet count of 210. The white scale count remains elevated. The chest x-ray findings are essentially unchanged. The patient continues to have increased interstitial markings bilaterally. The lines and the tubes are all in good location. The most recent sputum sample was positive for Klebsiella oxytoca. The blood culture was negative. Hemodynamically stable and she is on no pressors. She is on vital HP at rate of 60 cc an hour. She is also on Levemir insulin and the dose will be modified for a tighter blood sugar control. She remains on oral amiodarone 12 mg p.o. twice a day and metoprolol 50 mg p.o. twice a day. She remains on Entresto. No anticoagulants yet. On 09/12/2024, the patient is being seen for a follow-up. Some limited improvement in level of consciousness. She is opening her eyes and responding to simple questions. Nevertheless, profoundly weak, unable to move her extremities yet. She remains of sedation for more than 4 days. Noted the patient was intubated on 09/02/2024. She is on assist-control mode of mechanical ventilation at rate of 20, tidal volume of 400, FiO2 40% with a PEEP of 5. Blood gas showed a pH of 7.54 with a pCO2 of 44 and pO2 of 98. Noted the patient has been off propofol since 09/09/2024. Fluid balance is -711 cc. The patient remains on vital HP at a rate of 55 cc an hour. Cardiac rhythm is sinus. The white cell count is at 22 with a heme of 12.9 and a platelet count of 219. Sodium is at 139, potassium is 4.2, bicarb is at 40, BUN 70 with a creatinine of 0.7. Chest x-ray findings are essentially unchanged. The patient continues to have diffuse interstitial changes bilaterally with a small right- sided pleural effusion. I had a discussion with the family. Based on her ongoing slow recovery mentation and profound generalized weakness, she may be a good candidate for insertion of a tracheostomy and a PEG tube. No plans for lumbar puncture for today. Objective - Vital Signs Vital signs: Vital Signs Temp 98.6 F 09/12/24 04:00 Pulse 93 09/12/24 07:00 Resp 22 09/12/24 07:00 BP 123/55 09/12/24 07:00 Pulse Ox 96 09/12/24 07:00 FiO2 40 09/12/24 10:02 Intake & Output 09/11/24 09/12/24 09/12/24 18:59 06:59 18:59 Intake Total 962 1052 76 Output Total 1000 873 85 Balance -38 179 -9 Weight 73.4 kg 72.393 kg Intake: IV 252 332 21 0.9 3cc/ hr a-line 36 36 3 0.9 3cc/hr cvp 36 36 3 0.9 at KVO 60 40 5 Cefepime 2 gm In Sodium 100 Chloride 0.9% 100 ml @ 25 mls/hr IVPB Q12HR [facility] Rx #:[id number] Lactated Ringers 1,000 ml 120 120 10 @ 20 mls/hr IV .Q24H [facility] Rx#:[id number] Tube Feeding 620 660 55 Other 90 60 Output: Urine 1000 873 85 Other: Voiding Method Indwelling Catheter Indwelling Catheter ABP, PAP, CO, CI - Last Documented Arterial Blood Pressure 121/51 - Exam GENERAL EXAM: Intubated, no sedation for now. Diminished level of consciousness. Opening her eyes and grimacing to painful stimulation. Orogastric and orotracheal tube are both in place. HEAD: Normocephalic. EYES: Sluggish reaction of pupils, equal size. NOSE: Clear with pink turbinates. THROAT: Oral endotracheal and gastric tube secured in place. No erythema or exudates. NECK: No masses, no JVD. CHEST: No chest wall deformity. Left subclavian triple-lumen catheter in place. LUNGS: Equal air entry with few scattered rhonchi. CVS: S1 and S2 normal with no audible murmur, regular rhythm. ABDOMEN: No hepatosplenomegaly, normal bowel sounds, no guarding or rigidity. SPINE: No scoliosis or deformity SKIN: Areas of ecchymosis and bruising. CENTRAL NERVOUS SYSTEM: Sedated, tone is normal in all 4 extremities. The patient remains encephalopathic. She grimaces to painful stimulation. Some response to verbal stimulation. Remains profoundly weak. Remains lethargic. No spontaneous eye opening. She remains off sedation. EXTREMITIES: Right radial arterial line in place. There is no peripheral edema. Peripheral pulses are intact. - Labs CBC & Chem 7: 09/12/24 04:50 09/12/24 04:50 Labs: Abnormal Lab Results - Last 24 Hours (Table) 09/11/24 09/11/24 09/12/24 Range/Units 11:49 17:36 01:05 WBC (3.8-10.6) k/uL RBC (3.80-5.40) m/uL MCV (80.0-100.0) fL Neutrophils # (1.3-7.7) k/uL Lymphocytes # (1.0-4.8) k/uL ABG pH (7.35-7.45) ABG HCO3 (21-25) mmol/L ABG Total CO2 (19-24) mmol/L ABG O2 Saturation (94-97) % Carbon Dioxide (22-30) mmol/L BUN (7-17) mg/dL Glucose (74-99) mg/dL POC Glucose (mg/dL) 157 H 111 H 160 H (70-110) mg/dL 09/12/24 09/12/24 09/12/24 Range/Units 04:50 04:50 05:56 WBC 22.4 H (3.8-10.6) k/uL RBC 3.78 L (3.80-5.40) m/uL MCV 105.0 H (80.0-100.0) fL Neutrophils # 20.8 H (1.3-7.7) k/uL Lymphocytes # 0.5 L (1.0-4.8) k/uL ABG pH 7.54 H (7.35-7.45) ABG HCO3 37 H (21-25) mmol/L ABG Total CO2 39 H (19-24) mmol/L ABG O2 Saturation 98.3 H (94-97) % Carbon Dioxide 40 H (22-30) mmol/L BUN 70 H (7-17) mg/dL Glucose 59 L (74-99) mg/dL POC Glucose (mg/dL) (70-110) mg/dL Microbiology - Last 24 Hours (Table) 09/09/24 17:30 Blood Culture - Preliminary Blood 09/09/24 12:34 Gram Stain - Final Sputum Sputum Culture - Final Klebsiella oxytoca Assessment and Plan Plan: Acute on chronic hypoxic respiratory failure secondary to a COPD exacerbation, systolic CHF exacerbation, influenza A. The patient required intubation and mechanical ventilatory support on 09/02/2024. The patient remains intubated on mechanical ventilator. Chest x-ray shows diffuse interstitial pattern and small left-sided pleural effusion. Adequate oxygenation and ventilation. Neurologically, the patient has diminished level of consciousness and the patient has been off sedation since 09/05/2024. CAT scan of the brain done on 09/07/2024 showed no acute abnormalities. EEG was done and the patient is showing diffuse encephalopathy and diffuse slowing. No seizure activity has been noted. Continues to show and demonstrate slow but ongoing improvement in level of consciousness. Profound weakness in all 4 extremities. Acute influenza A, completed a course of Tamiflu Acute exacerbation of COPD, remains on bronchodilators Acute on chronic systolic congestive heart failure. The patient has impairment of the LV function with an ejection fraction of 35%, nonischemic cardiomyopathy with moderate degree of mitral regurgitation. Bilateral pneumonia, likely superinfection following influenza A infection and the patient has positive cultures with Streptococcus pneumonia and Klebsiella oxytoca. The patient remains on broad-spectrum antibiotics and the patient is currently on a combination of cefepime and vancomycin. Repeat sputum culture from 09/09/2024 was again positive for Klebsiella oxytoca. Leukocytosis, with further rise in the white cell count. The patient is currently on IV cefepime. White cell count remains elevated Atrial fibrillation with rapid ventricular response, the patient has received cardioversion on 09/07/2024 and the patient is back in normal sinus rhythm.The patient is currently on amiodarone 400 mg p.o. twice a day The patient is also on metoprolol 50 mg twice daily. Cardiac rhythm is sinus as stated. Hemodynamically stable and the patient is currently off pressors. Alcoholism Acute metabolic encephalopathy secondary to above. The patient remains to have diminished level of consciousness. The patient has been off sedation since 09/05/2024 and the patient had a follow-up CAT scan of the brain done on 09/07 that showed no acute abnormalities. EEG showed encephalopathy and diffuse slowing. Level of consciousness is gradually improving Transaminitis, likely secondary to alcoholism Moderate mitral regurgitation Nonischemic cardiomyopathy, EF of 35% Hypertension Dyslipidemia Hypothyroidism Plan: Continue ventilator support, no changes for today Discontinue Give the patient Diamox 250 mg IV push x 2 Change the Levemir dose to 30 units for a tighter blood sugar control in addition to a sliding scale coverage. Avoid any form of sedation Monitor mental status Hold anticoagulation in anticipation of possible PEG and trach insertion over the next 24 to 48 hours Neurology input is appreciated IV fluids are currently at KVO Continue cefepime Monitor the white cell count Repeat cultures are negative. Sputum cultures positive for Klebsiella oxytoca Continue bronchodilators Continue combination of amiodarone, metoprolol and anticoagulation will be placed on hold Continue vital HP for nutritional support We will continue to follow Condition remains quite critical and this evaluation was done in 32 minutes. Evaluation was done in the intensive care unit. Time with Patient: Greater than 30
--- NOTE | 2024-09-12 16:23 | P.PN ---
Subjective Progress Note Date: 09/12/24 Hospital Course: Patient is a 74-year-old female with past medical history significant for COPD, CHF, atrial fibrillation on Coumadin, and hypertension presents today for 1 week worsening of breathing as well as significant cough. She wears 2 L of oxygen at night but says that she has had to wear 2 L 24/7 for the past week. About 5 days ago she saw Dr. Lorenzo and he started her on spironolactone due to leg swelling and fluid retention. She states that the leg swelling has improved since. She has experienced COPD exacerbations like this before. Of note her granddaughter had the flu last week. Treated for management of acute on chronic hypoxic respiratory failure secondary to COPD exacerbation, influenza A, acute HFrEF exacerbation. Cardiology consulted. Started on IV Lasix, Coumadin continued, TTE ordered. Severe LV systolic dysfunction with EF 35%, severe pulmonary hypertension. Added Farxiga to her current medical regimen. Elevated LFTs, bilirubin, abdominal ultrasound was obtained and showed no acute finding, negative Underwood sign, adherent gallstone versus small polyp measuring 3 mm. Nonobstructing renal calculi on the right. 08/29 in the evening patient became progressively short of breath, started hallucinating. She was placed on BiPAP, given her history of alcohol drinking, she was started on CIWA with Ativan, transferred to ICU for close monitoring. Patient became obtunded and was intubated on 09/02. Went into A-Fib with RVR, successfully cardioverted on 09/03. Sedation holidays 09/05: Patient became tachypneic,reattempt 09/06-patient is off sedation since 09/06 10:30, AM on 09/07 patient is nonresponsive, no withdrawal to pain, verbal stimuli, horizontal nystagmus noted, pupils are reactive. Patient required 2 doses of Dilaudid 0.[address] brain ordered. No pressor support required 09/08: Patient is minimally responsive today, tries to open eyes, does not squeeze hands, does not move the toes. CT brain showed no acute abnormalities, EEG ordered, neurology consulted. EEG showed background slowing moderate to severe degree, CT head with no acute process. Plan for possible LP, patient is still minimally responsive, Eliquis on hold in anticipation of LP. 09/09Overnight started spiking fever, leukocytosis worsened, ordered repeat blood cultures, started patient on broad-spectrum antibiotics with vancomycin and cefepime SOT 09/09. 09/10, no changes in mental status, patient is minimally responsive to painful stimuli, no purposeful extremity movement, cannot open eyes, does not follow commands. Amiodarone decreased to 20 twice daily, continued on Entresto, Eliquis holding in anticipation of lumbar puncture. Sputum cultures gram- negative bacilli 09/11: Per neurology note, patient was noted to be awoke and following commands intermittently, slightly wiggling toes on the left side, attempting to talk. On my exam, patient turns head to voice, withdraws from pain, tries to open eyes, slight toe wiggling on request, on the left side. Does not squeeze hands. Continue to hold Eliquis for LP, vancomycin was discontinued, blood cultures from 09/09 negative, sputum cultures growing Klebsiella again. Spiked fever 09/11 midnight. Subjective: Patient is intubated Subjective: General surgery was consulted for insertion of trach/peg. LP is still pending per neuro note. Vitals Signs Reviewed. General: intubated, sedated HEENT: normocephalic, atraumatic, no tracheal deviation Respiratory: symmetric chest rise, no cyanosis, ventilator dependent CVS: perfusing all extremities, no distal gangrene, trace pitting edema GI: soft, ND : no SPT, no CVAT, stewart is present Neuro: sedated Assessment and Plan: Atrial fibrillation with RVR and Supratherapeutic INR Status post cardioversion 09/03. Started on amiodarone 400 mg p.o. twice daily, dose decreased to 200 mg twice daily 09/10 Continue Entresto Continue Metoprolol 50 mg PO BID. Started on Eliquis 5 twice daily, currently on hold in anticipation of LP Acute on chronic hypoxic respiratory failure multifactorial, secondary to acute influenza A, Bacterial pneumonia Klebsiella oxytoca Streptococcus pneumonia, Acute COPD exacerbation, Acute on chronic HFrEF requiring intubation Septic shock, resolved Sepsis secondary to Klebsiella pneumonia Acute toxic metabolic encephalopathy secondary to the above Severe pulmonary hypertension, WHO class II Moderate mitral regurgitation -Laisx 20 IV twice daily on hold for now; on acetazolamide 250mg BID -Aldactone, Losartan, Farxiga on hold., Started on Entresto - IV Solu-Medrol 40 mg every 12 hours discontinued on 09/11. -Continue cefepime 2 g q8h -Sputum Cx growing Klebsiella and Strep Pneumo -Continue with DuoNeb Q4H scheduled and Q2N PRN. -Continue Pulmicort 1 mg INH BID and Performist 20 mcg INH BID. -Cardiology on board. [employer] on board -Discussed with RN, ICU team -CT brain for unresponsiveness was negative -EEG with moderate to severe background slowing, neurology following -poor prognosis Hyperkalemia, resolved: Recheck potassium ordered,, Lokelma given09/08 Constipation: Senna scheduled, added lactulose History of alcohol abuse Haldol 4 mg IV Q6H PRN agitation CIWA protocol with Ativan PRN IV thiamine 100 daily Anxiety Hypertension not hypotensive anymore, Levophed stopped 09/06 814 DVT prophylaxis: on hold for LP Anticipated discharge pending Clinical course Objective - Vital Signs Vital signs: Vital Signs Temp 98.2 F 09/12/24 12:00 Pulse 82 09/12/24 15:35 Resp 22 09/12/24 07:00 BP 123/73 09/12/24 12:15 Pulse Ox 99 09/12/24 12:15 FiO2 40 09/12/24 15:21 Intake & Output 09/11/24 09/12/24 09/12/24 18:59 06:59 18:59 Intake Total 962 1052 131 Output Total 1000 873 385 Balance -38 179 -254 Weight 73.4 kg 72.393 kg Intake: IV 252 332 76 0.9 3cc/ hr a-line 36 36 18 0.9 3cc/hr cvp 36 36 18 0.9 at KVO 60 40 30 Cefepime 2 gm In Sodium 100 Chloride 0.9% 100 ml @ 25 mls/hr IVPB Q12HR [facility] Rx #:[id number] Lactated Ringers 1,000 ml 120 120 10 @ 20 mls/hr IV .Q24H [facility] Rx#:[id number] Tube Feeding 620 660 55 Other 90 60 Output: Urine 1000 873 385 Other: Voiding Method Indwelling Catheter Indwelling Catheter ABP, PAP, CO, CI - Last Documented Arterial Blood Pressure 169/68 - Labs CBC & Chem 7: 09/12/24 04:50 09/12/24 04:50 Labs: Abnormal Lab Results - Last 24 Hours (Table) 09/11/24 09/12/24 09/12/24 Range/Units 17:36 01:05 04:50 WBC 22.4 H (3.8-10.6) k/uL RBC 3.78 L (3.80-5.40) m/uL MCV 105.0 H (80.0-100.0) fL Neutrophils # 20.8 H (1.3-7.7) k/uL Lymphocytes # 0.5 L (1.0-4.8) k/uL ABG pH (7.35-7.45) ABG HCO3 (21-25) mmol/L ABG Total CO2 (19-24) mmol/L ABG O2 Saturation (94-97) % Carbon Dioxide (22-30) mmol/L BUN (7-17) mg/dL Glucose (74-99) mg/dL POC Glucose (mg/dL) 111 H 160 H (70-110) mg/dL 09/12/24 09/12/24 09/12/24 Range/Units 04:50 05:56 11:57 WBC (3.8-10.6) k/uL RBC (3.80-5.40) m/uL MCV (80.0-100.0) fL Neutrophils # (1.3-7.7) k/uL Lymphocytes # (1.0-4.8) k/uL ABG pH 7.54 H (7.35-7.45) ABG HCO3 37 H (21-25) mmol/L ABG Total CO2 39 H (19-24) mmol/L ABG O2 Saturation 98.3 H (94-97) % Carbon Dioxide 40 H (22-30) mmol/L BUN 70 H (7-17) mg/dL Glucose 59 L (74-99) mg/dL POC Glucose (mg/dL) 116 H (70-110) mg/dL Microbiology - Last 24 Hours (Table) 09/09/24 17:30 Blood Culture - Preliminary Blood
[2024-09-12 16:41] LABS: Glucose,Whole Blood 126 mg/dL (70-110)
[2024-09-12] MEDS: HEPARIN SODIUM,PORCINE 5,000 UNIT/ML 1 ML VIAL SQ SCH (16:54)
[2024-09-13 00:01] LABS: Glucose,Whole Blood 161 mg/dL (70-110)
[2024-09-13 04:46] LABS: ABG PCO2 46 mmHg (35-45); ABG PH 7.44 (7.35-7.45); ABG PO2 92 mmHg (83-108); Allen Test Performed? Yes
[2024-09-13 04:47] LABS: ABG Base Excess 5.6 mmol/L; ABG HCO3 31 mmol/L (21-25); ABG TCO2 32 mmol/L (19-24)
[2024-09-13 04:51] LABS: HCT 37.4 % (34.0-46.0); MCH 33.9 pg (25.0-35.0); MCHC 32.1 g/dL (31.0-37.0); MCV 105.7 fL (80.0-100.0); Macrocytosis Moderate; Platelet Count 187 k/uL (150-450); RBC 3.54 m/uL (3.80-5.40); RDW 14.6 % (11.5-15.5); WBC 20.6 k/uL (3.8-10.6)
[2024-09-13 05:21] LABS: African American GFR (CKD) 89 (>60 ml/min/1.73 sqM); Anion Gap 2 mmol/L; Blood Urea Nitrogen 65 mg/dL (7-17); Calcium 7.8 mg/dL (8.4-10.2); Carbon Dioxide 32 mmol/L (22-30); Chloride 105 mmol/L (98-107); Glucose 215 mg/dL (74-99); Non-African American GFR(CKD) 77 (>60 ml/min/1.73 sqM); Potassium 3.4 mmol/L (3.5-5.1); Sodium 139 mmol/L (137-145)
[2024-09-13 05:22] LABS: Glucose,Whole Blood 198 mg/dL (70-110)
[2024-09-13] MEDS: POTASSIUM BICARBONATE/CIT AC 20 MEQ TABLET.EFF NG-TUBE SCH (05:43)
--- NOTE | 2024-09-13 07:53 | XR ---
EXAMINATION TYPE: XR chest 1V portable DATE OF EXAM: 09/13/2024 5:45 AM COMPARISON: 09/12/2024 CLINICAL INDICATION: Female, 74 years old with history of pleural effusions, TECHNIQUE: XR chest 1V portable view(s) obtained. FINDINGS: The heart size is mildly prominent. The pulmonary vasculature is prominent. Some left lower lobe infiltrate is present. Correlate for atelectasis or pneumonia. Diffuse increased lung markings appears similar to comparison. There may be improvement of right lung base IMPRESSION: 1. Left lower lobe infiltrate. Correlate for atelectasis or pneumonia. 2. Cardiomegaly and prominent pulmonary vascular markings. Some volume overload may be present. 3. There may be slight improvement from comparison. [facility], , 09/13/2024 7:51 AM
[2024-09-13] MEDS: DEXMEDETOMIDINE/0.9% NACL(PMX) 400 MCG in EMPTY BAG 1 BAG IV SCH (08:58)
--- NOTE | 2024-09-13 09:50 | P.PN ---
Subjective Progress Note Date: 09/13/24 Principal diagnosis: Respiratory failure Patient remains on the ventilator. No weaning today. White blood cell count is 20. Oxygen requirement similar and stable. Objective - Vital Signs Vital signs: Vital Signs Temp 100.6 F H 09/13/24 04:00 Pulse 93 09/13/24 08:48 Resp 23 09/13/24 07:00 BP 118/56 09/13/24 07:00 Pulse Ox 99 09/13/24 07:00 FiO2 40 09/13/24 08:35 Intake & Output 09/12/24 09/13/24 09/13/24 18:59 06:59 18:59 Intake Total 1085.483 982 Output Total 755 1075 Balance 330.483 -93 Weight 74.653 kg Intake: IV 253 232 0.9 3cc/ hr a-line 39 36 0.9 3cc/hr cvp 39 36 0.9 at KVO 65 60 Cefepime 2 gm In Sodium 100 100 Chloride 0.9% 100 ml @ 25 mls/hr IVPB Q12HR [facility] Rx #:[id number] Lactated Ringers 1,000 ml 10 @ 20 mls/hr IV .Q24H [facility] Rx#:[id number] Intake, IV Titration 27.483 0 Amount Norepinephrine 8 mg In 27.483 0 Sodium Chloride 0.9% 250 ml @ 0.03 MCG/KG/MIN 4. 261 mls/hr IV .Q24H [facility] Rx#:[id number] Tube Feeding 715 660 Other 90 90 Output: Urine 755 1075 Other: Voiding Method Indwelling Catheter Indwelling Catheter # Bowel Movements 1 1 ABP, PAP, CO, CI - Last Documented Arterial Blood Pressure 130/49 - Exam Abdomen: Soft, nontender, nondistended - Labs CBC & Chem 7: 09/13/24 04:25 09/13/24 04:25 Labs: Abnormal Lab Results - Last 24 Hours (Table) 09/12/24 09/12/24 09/12/24 Range/Units 11:57 16:39 23:59 WBC (3.8-10.6) k/uL RBC (3.80-5.40) m/uL MCV (80.0-100.0) fL ABG pCO2 (35-45) mmHg ABG HCO3 (21-25) mmol/L ABG Total CO2 (19-24) mmol/L Potassium (3.5-5.1) mmol/L Carbon Dioxide (22-30) mmol/L BUN (7-17) mg/dL Glucose (74-99) mg/dL POC Glucose (mg/dL) 116 H 126 H 161 H (70-110) mg/dL Calcium (8.4-10.2) mg/dL 09/13/24 09/13/24 09/13/24 Range/Units 04:25 04:25 04:34 WBC 20.6 H (3.8-10.6) k/uL RBC 3.54 L (3.80-5.40) m/uL MCV 105.7 H (80.0-100.0) fL ABG pCO2 46 H (35-45) mmHg ABG HCO3 31 H (21-25) mmol/L ABG Total CO2 32 H (19-24) mmol/L Potassium 3.4 L (3.5-5.1) mmol/L Carbon Dioxide 32 H (22-30) mmol/L BUN 65 H (7-17) mg/dL Glucose 215 H (74-99) mg/dL POC Glucose (mg/dL) (70-110) mg/dL Calcium 7.8 L (8.4-10.2) mg/dL 09/13/24 Range/Units 05:20 WBC (3.8-10.6) k/uL RBC (3.80-5.40) m/uL MCV (80.0-100.0) fL ABG pCO2 (35-45) mmHg ABG HCO3 (21-25) mmol/L ABG Total CO2 (19-24) mmol/L Potassium (3.5-5.1) mmol/L Carbon Dioxide (22-30) mmol/L BUN (7-17) mg/dL Glucose (74-99) mg/dL POC Glucose (mg/dL) 198 H (70-110) mg/dL Calcium (8.4-10.2) mg/dL Microbiology - Last 24 Hours (Table) 09/09/24 17:30 Blood Culture - Preliminary Blood Assessment and Plan Plan: Continue ventilatory support. Plans for tracheostomy and PEG tube placement for Sunday. Will reassess tomorrow.
--- NOTE | 2024-09-13 09:51 | P.PN ---
Subjective Progress Note Date: 09/13/24 PROGRESS NOTE The patient is a 74-year-old female with known history of COPD, nonischemic cardiomyopathy, permanent atrial fibrillation with attempted cardioversion in May 2023 who presented with progressive dyspnea and worsening peripheral edema, was diagnosed with influenza A infection. She had worsening of her respiratory status requiring mechanical ventilation. She remains intubated, good urine output and tolerating feeding. She has no evidence of malignant arrhythmia. Her echocardiogram and admission showed an ejection fraction of 35% with mild to moderate tricuspid regurgitation and severe pulmonary hypertension that has been documented in the past. She is in sinus mechanism at this time. She underwent CT scan of the head that showed no evidence of acute events. September 09: The patient remains intubated, not following verbal command. She is in sinus mechanism on no vasopressors. Her urinary output has been good. She has been evaluated by the neurology service for her mental status and felt probably to have metabolic encephalopathy. There is no evidence of recurrent atrial fibrillation. She continues to be in sinus mechanism. September 10: The patient remains intubated and sedated, in sinus mechanism. Hemodynamically stable. She had an echocardiogram that showed an ejection fraction of 40 to 45% with moderate severe pulmonary hypertension and dilated right ventricle and mild to moderate tricuspid regurgitation. She remains unresponsive and is being evaluated by the neurology service September 11: The patient remains intubated, not following command clearly. She continues to be in sinus mechanism. She continues to be of anticoagulation because of possible lumbar puncture today. Hemodynamically she is stable. Her urinary output is stable. She had no evidence of ventricular tachyarrhythmia. Her chest x-ray shows no significant changes. September 12: The patient remains intubated but is opening her eyes to verbal stimulation. She continues to be in sinus mechanism, hemodynamically stable. There is no evidence of ventricular ectopic activity. Her chest x-ray shows evidence of right-sided effusion. She did not undergo a LP. She continues to be off anticoagulation. September 13: The patient remains intubated but more awake earlier, she has been sedated at this point. The plan is to proceed with PEG tube and tracheostomy on Sunday. She is on subcu heparin. Hemodynamically she is requiring low-dose norepinephrine. There is no evidence of atrial fibrillation. Her urinary output has been stable. Medications: Amiodarone 200 mg twice a day, insulin, metoprolol tartrate 50 mg twice a day, Solu-Medrol, thiamine Lasix 20 mg IV every 12 hours Entresto 24-26 mg twice a day. Her anticoagulation is on hold for possible lumbar puncture PHYSICAL EXAMINATION: Blood pressure 130/49 heart rate 93, intubated, LUNGS: Clear to auscultation anteriorly HEART: Regular rate and rhythm, S1, S2. No S3. Systolic ejection murmur ABDOMEN: Soft, positive bowel sounds, no organomegaly EXTREMETIES: No edema LAB: Hemoglobin 12.0, WBC 20.6, potassium 3.4, BUN 65, creatinine 0.77 IMPRESSION: 1. Respiratory failure with COPD exacerbation, influenza A and history of CHF with reduced ejection fraction 2. Chronic cardiomyopathy, nonischemic, 3. Atrial fibrillation, maintaining sinus mechanism, status post cardioversion 4. Prior history of alcohol intake 5. Streptococcus pneumonia with leukocytosis 6. Prior history of hypertension 7. Metabolic encephalopathy. PLAN: 1. Continue present therapy 2. Plan for tracheostomy and PEG tube placement on Sunday 3. Wean norepinephrine as tolerated 4. Monitor blood pressure and adjust treatment accordingly Objective - Vital Signs Vital signs: Vital Signs Temp 100.6 F H 09/13/24 04:00 Pulse 93 09/13/24 08:48 Resp 23 09/13/24 07:00 BP 118/56 09/13/24 07:00 Pulse Ox 99 09/13/24 07:00 FiO2 40 09/13/24 08:35 Intake & Output 09/12/24 09/13/24 09/13/24 18:59 06:59 18:59 Intake Total 1085.483 982 Output Total 755 1075 Balance 330.483 -93 Weight 74.653 kg Intake: IV 253 232 0.9 3cc/ hr a-line 39 36 0.9 3cc/hr cvp 39 36 0.9 at KVO 65 60 Cefepime 2 gm In Sodium 100 100 Chloride 0.9% 100 ml @ 25 mls/hr IVPB Q12HR [facility] Rx #:[id number] Lactated Ringers 1,000 ml 10 @ 20 mls/hr IV .Q24H [facility] Rx#:[id number] Intake, IV Titration 27.483 0 Amount Norepinephrine 8 mg In 27.483 0 Sodium Chloride 0.9% 250 ml @ 0.03 MCG/KG/MIN 4. 261 mls/hr IV .Q24H [facility] Rx#:[id number] Tube Feeding 715 660 Other 90 90 Output: Urine 275 1075 Other: Voiding Method Indwelling Catheter Indwelling Catheter # Bowel Movements 1 1 ABP, PAP, CO, CI - Last Documented Arterial Blood Pressure 130/49 - Labs CBC & Chem 7: 09/13/24 04:25 09/13/24 04:25 Labs: Abnormal Lab Results - Last 24 Hours (Table) 09/12/24 09/12/24 09/12/24 Range/Units 11:57 16:39 23:59 WBC (3.8-10.6) k/uL RBC (3.80-5.40) m/uL MCV (80.0-100.0) fL ABG pCO2 (35-45) mmHg ABG HCO3 (21-25) mmol/L ABG Total CO2 (19-24) mmol/L Potassium (3.5-5.1) mmol/L Carbon Dioxide (22-30) mmol/L BUN (7-17) mg/dL Glucose (74-99) mg/dL POC Glucose (mg/dL) 116 H 126 H 161 H (70-110) mg/dL Calcium (8.4-10.2) mg/dL 09/13/24 09/13/24 09/13/24 Range/Units 04:25 04:25 04:34 WBC 20.6 H (3.8-10.6) k/uL RBC 3.54 L (3.80-5.40) m/uL MCV 105.7 H (80.0-100.0) fL ABG pCO2 46 H (35-45) mmHg ABG HCO3 31 H (21-25) mmol/L ABG Total CO2 32 H (19-24) mmol/L Potassium 3.4 L (3.5-5.1) mmol/L Carbon Dioxide 32 H (22-30) mmol/L BUN 65 H (7-17) mg/dL Glucose 215 H (74-99) mg/dL POC Glucose (mg/dL) (70-110) mg/dL Calcium 7.8 L (8.4-10.2) mg/dL 09/13/24 Range/Units 05:20 WBC (3.8-10.6) k/uL RBC (3.80-5.40) m/uL MCV (80.0-100.0) fL ABG pCO2 (35-45) mmHg ABG HCO3 (21-25) mmol/L ABG Total CO2 (19-24) mmol/L Potassium (3.5-5.1) mmol/L Carbon Dioxide (22-30) mmol/L BUN (7-17) mg/dL Glucose (74-99) mg/dL POC Glucose (mg/dL) 198 H (70-110) mg/dL Calcium (8.4-10.2) mg/dL Microbiology - Last 24 Hours (Table) 09/09/24 17:30 Blood Culture - Preliminary Blood
--- NOTE | 2024-09-13 12:04 | P.PN ---
Subjective Progress Note Date: 09/12/24 08/11/2024: Patient was seen for a follow-up. Patient continues to be intubated. Off sedation. Not much improvement. No seizure-like activity. 09/11/2024: Patient was seen for follow-up. Patient is in the bed. Patient is off sedation. Patient is on hold for Eliquis for possible lumbar puncture. 09/10/2024: Patient was seen for a follow-up. Patient has been off sedation for last 48 hours. Prior to that, she has been sporadically on low-dose propofol 10 mcg/kg's per minute. Patient is currently on cefepime and vancomycin. She turns her head, nurse does not follow commands. Sometimes fluttering her eyes. Patient has Klebsiella and Streptococcus pneumonia in the sputum with elevated white cells. Patient on antibiotics. ID following. Patient has atrial fibrillation with RVR. Eliquis on hold because patient is undergoing LP tomorrow. Per nurse report, patient was admitted on 08/28/2024 for shortness of breath, blood pressure issues. She was admitted to 3 . An A-team was called for patient with altered mental status, hallucinations and appeared patient has history of alcoholism. She was started on CIWA protocol. Patient was intubated on 09/02/2024. She is also influenza positive. Objective - Vital Signs Vital signs: Vital Signs Temp 98.2 F 09/12/24 12:00 Pulse 96 09/12/24 12:15 Resp 22 09/12/24 07:00 BP 123/73 09/12/24 12:15 Pulse Ox 99 09/12/24 12:15 FiO2 40 09/12/24 11:41 Intake & Output 09/11/24 09/12/24 09/12/24 18:59 06:59 18:59 Intake Total 962 1052 131 Output Total 1000 873 385 Balance -38 179 -254 Weight 73.4 kg 72.393 kg Intake: IV 252 332 76 0.9 3cc/ hr a-line 36 36 18 0.9 3cc/hr cvp 36 36 18 0.9 at KVO 60 40 30 Cefepime 2 gm In Sodium 100 Chloride 0.9% 100 ml @ 25 mls/hr IVPB Q12HR [facility] Rx #:[id number] Lactated Ringers 1,000 ml 120 120 10 @ 20 mls/hr IV .Q24H [facility] Rx#:[id number] Tube Feeding 620 660 55 Other 90 60 Output: Urine 1000 873 385 Other: Voiding Method Indwelling Catheter Indwelling Catheter ABP, PAP, CO, CI - Last Documented Arterial Blood Pressure 169/68 - Exam Patient is off sedation for last 96 hours. She sometimes moves her head [id number]. Patient grimaces with painful stimuli, equally with all 4 extremities. Does not follow commands otherwise. Patient continues to be very encephalopathic. Rest of the examination is unchanged. - Labs CBC & Chem 7: 09/13/24 04:25 09/13/24 04:25 Labs: Abnormal Lab Results - Last 24 Hours (Table) 09/11/24 09/12/24 09/12/24 Range/Units 17:36 01:05 04:50 WBC 22.4 H (3.8-10.6) k/uL RBC 3.78 L (3.80-5.40) m/uL MCV 105.0 H (80.0-100.0) fL Neutrophils # 20.8 H (1.3-7.7) k/uL Lymphocytes # 0.5 L (1.0-4.8) k/uL ABG pH (7.35-7.45) ABG HCO3 (21-25) mmol/L ABG Total CO2 (19-24) mmol/L ABG O2 Saturation (94-97) % Carbon Dioxide (22-30) mmol/L BUN (7-17) mg/dL Glucose (74-99) mg/dL POC Glucose (mg/dL) 111 H 160 H (70-110) mg/dL 09/12/24 09/12/24 09/12/24 Range/Units 04:50 05:56 11:57 WBC (3.8-10.6) k/uL RBC (3.80-5.40) m/uL MCV (80.0-100.0) fL Neutrophils # (1.3-7.7) k/uL Lymphocytes # (1.0-4.8) k/uL ABG pH 7.54 H (7.35-7.45) ABG HCO3 37 H (21-25) mmol/L ABG Total CO2 39 H (19-24) mmol/L ABG O2 Saturation 98.3 H (94-97) % Carbon Dioxide 40 H (22-30) mmol/L BUN 70 H (7-17) mg/dL Glucose 59 L (74-99) mg/dL POC Glucose (mg/dL) 116 H (70-110) mg/dL Microbiology - Last 24 Hours (Table) 09/09/24 17:30 Blood Culture - Preliminary Blood 09/09/24 12:34 Gram Stain - Final Sputum Sputum Culture - Final Klebsiella oxytoca Assessment and Plan Assessment: Altered mental status, likely due to toxic metabolic encephalopathy. Reasons multifactorial as mentioned below Elevated pCO2, 65, now 58. Acute kidney injury Ventilatory dependent respiratory failure COPD exacerbation CHF exacerbation Acute influenza A, completed course of Tamiflu Bilateral pneumonia Septic shock, due to Klebsiella pneumonia, resolved Leukocytosis Atrial fibrillation with rapid ventricular response History of alcoholism Macrocytosis Moderate MR Nonischemic cardiomyopathy with EF 35% Hypertension Hyperlipidemia Hypothyroidism Plan: * Patient is not showing much improvement clinically. Continues to be severely encephalopathic. * EEG 09/08/2024 was abnormal, due to background slowing of moderate to severe degree. This is suggestive of generalized cerebral dysfunction as can be seen with toxic metabolic encephalopathy or related to diffuse structural brain abnormality. Clinical correlation is recommended. No epileptiform activity was seen. * CT head 09/07/2024 showed no acute process. * Medical management as per IM, critical care and other specialties on board. * Patient on Eliquis, currently on hold, for possible lumbar puncture. Recommend bridging with Lovenox while Eliquis is on hold. Discussed with ICU resident. * Hopefully patient's mentation will improve, once metabolic conditions comes under control. * Supportive care
[2024-09-13 12:20] LABS: Glucose,Whole Blood 170 mg/dL (70-110)
--- NOTE | 2024-09-13 13:02 | P.PN ---
Subjective Progress Note Date: 09/13/24 This is a 74-year-old female, familiar to my service, patient is known to have history of COPD, severe, history of chronic cor pulmonale, history of nonischemic cardiomyopathy and LV dysfunction as well as history of chronic atrial fibrillation maintained on Coumadin. Patient is also known to have histo ry of moderate mitral regurgitation. Patient is normally on oxygen at 2 L/min, she is normally on diuretics, and she was very seen about a week ago in my office with worsening swelling of her lower extremities, and patient was placed on Aldactone in addition to her Lasix. Her leg swelling improved, however patient came into the ER on 08/28/2024, came in mostly with worsening shortness of breath, cough, wheezing, apparently when she was brought in by EMS she was found to be in tripod position and she was breathing quite heavy. Patient was placed on BiPAP, that seemed to improve her pulmonary status significantly on BiPAP. In the ER, patient was noted to have positive screening for acute influenza A. Last night I was notified about this patient about her shortness of breath and being BiPAP dependent, patient is known to have history of alcohol drinking, and there was also a concern about the patient going into alcohol withdrawal. Patient required some Ativan, admitted to the ICU for close monitoring. I was asked to see her in consultation. In addition to her COPD, patient had positive screening for influenza A. Today I saw the patient in the ICU, she is still on BiPAP 12/5/40%, patient is receiving Lasix, she is also on Aldactone, patient is on Tamiflu, and she is on her usual bronchodilators and on Solu-Medrol. WBC count is 11.9 hemoglobin 12.3 INR is 3.1 electrolytes are normal renal profile is normal troponin is less than 0.012 Evaluated today on 08/31/2024, patient remains in the ICU, patient is on 4 L nasal cannula, last night she was on BiPAP 12/5/40%, patient remains on bronchodilators, Lasix, Coumadin, and she is also on doxycycline. Baseline FEV1 from my office chart is 42% at best. Clearly the patient has severe underlying COPD. Patient is now on nasal cannula, had to be on BiPAP yesterday. Chest x- ray today is suggestive of interstitial edema, underlying pneumonia is felt to be less likely but not entirely ruled out. WBC count is 11.4 hemoglobin is 14.3 INR is 3.3 electrolytes are normal bicarb is 4 0 BUN is 27 creatinine 0.66 The patient is seen today September 01, 2024 in follow-up in the intensive care unit. She is currently sitting up in bed. She is quite restless. Moving from [id number]. She was on BiPAP 12/5 and 40% FiO2. She is currently on 4 L nasal cannula. Her O2 saturation did drop into the 70s when she had her oxygen off. She did require Ativan throughout the night. Recent arterial blood gases revealed a PH of 69, pCO2 79 and a pH of 7.38. She is continued on DuoNeb inhalations, Symbicort, Solu-Medrol. Empiric antibiotics in the form of doxycycline. She remains on IV diuretics. Remains on the CIVT protocol. Anticoagulated with warfarin. White count 11.4. Hemoglobin 14.4. Platelets 169. INR 4.8. Sodium 150. Potassium 3.9. Bicarb 45. BUN 39. Creatinine 0.67. Chest x-ray reveals similar moderate interstitial opacities. The patient is seen today September 02, 2024 in follow-up in the intensive care unit. Throughout the night and early this morning she became more obtunded. She was maintained on BiPAP 12/5 and 50% FiO2. PaO2 of 90, pCO2 of 97 and a pH of 7.34. She subsequently had undergone intubation and mechanical ventilatory support. She is currently on assist-control mode at a rate of 20, tidal volume 350, FiO2 100% and a PEEP of 5. Follow-up blood gases revealed a PaO2 of 332, pCO2 75 and a pH of 7.43. The FiO2 was decreased to 40%. White count 11.4. Hemoglobin 14.7. Platelets 173. Sodium 150. Potassium 4.2. Bicarb 47. BUN 59. Creatinine 0.67. Glucose 378. AST 50. ALT 58. Amiodarone at 0.5 mg/h. Her INR was 7.2. She did receive vitamin K. She is requiring norepinephrine at 0.03 mcg/kg/min. Propofol at 15 mcg/kg/min. Continued on DuoNeb inhalations, S ymbicort, doxycycline. Chest x-ray shows evidence of COPD with superimposed pulmonary vascular congestion. Ongoing patchy left basilar and retrocardiac opacity. The patient is seen today September 03, 2024 in follow-up in the intensive care unit. She remains intubated on mechanical ventilator. Currently on assist- control mode with a rate of 20, tidal volume 350, FiO2 40% and a PEEP of 5. Morning blood gases revealed a PaO2 of 83, pCO2 of 80 and a pH of 7.38. She is still having issues with atrial fibrillation with rapid ventricular response. She is on a amiodarone drip at 1 mg/min. Remains on norepinephrine at 3.4 mcg/min. D5W at 125 mL/h. Propofol at 20 mcg/kg/min. Insulin drip at 6 units/h. She is being nourished with vital HP at 30 mL/h with a goal of 38. Chest x-ray reveals diffuse interstitial changes on a background of COPD. Small left pleural effusion. Retrocardiac consolidation/atelectasis. Blood culture reveals no growth. Sputum culture reveals no growth to date. 14.5. Platelets 222. INR 1.6. Sodium 136. Potassium 3.8. Bicarb 45. BUN 70. Creatinine 0 .91. Glucose 213. She remains on DuoNeb and elations, Pulmicort and Perforomist inhalations, IV Solu-Medrol. Remains on warfarin. Remains on Protonix. The patient is seen today September 04, 2024 in follow-up in the intensive care unit. She remains intubated on the mechanical ventilator. Currently on assist- control mode with a rate of 20, tidal volume 350, FiO2 40% and a PEEP of 5. Morning blood gases revealed a PaO2 of 76, pCO2 77 and a pH of 7.36. She remains in atrial fibrillation with a rapid ventricular response and an undergone cardioversion this a.m. with 200 J and is currently back in sinus rhythm. She remains on amiodarone drip at 0.5 mg/min. Heparin drip per weight- based protocol. Sedated with propofol at 30 mcg/kg/min. Norepinephrine at 1 mcg/min. Lactated Ringer's at 75 mL/h. She is being nourished with vital HP at 38 mL/h which is goal. She is continued on DuoNeb and elations, Pulmicort and Perforomist inhalations, IV Solu-Medrol. Protonix for GI prophylaxis. Remains on doxycycline. Sputum culture now revealing Streptococcus pneumoniae. White count 13.8. Hemoglobin 13.9. Platelets 157. INR 1.3. Sodium 132. Potassium 4.9. Bicarb 35. BUN 89. Creatinine 0.95. Glucose 178. The patient is seen today September 05, 2024 in follow-up in the intensive care unit. She remains intubated on the mechanical ventilator. Currently on assist- control mode with a rate of 20, tidal valve 350, FiO2 40% and a PEEP of 5. Morning blood gases revealed a PaO2 of 87, pCO2 of 73 and a pH of 7.38. Chest x-ray reveals cardiomegaly with small left pleural effusion. She is sedated on propofol at 30 mcg/kg/min. Remains on norepinephrine at 2 mcg/min. Continued on a heparin drip per weight-based protocol. Lactated Ringer's at 75 mL/h. She is being nourished with vital HP at 30 mL/h which is goal. She is continued on ceftriaxone. Sputum culture was positive for Klebsiella oxytoca and Streptococcus pneumoniae. Blood culture revealed no growth. Urine culture revealed no growth. White count 16.0. Hemoglobin 12.8. Platelets 147. Sodium 136. Potassium 4.7. Bicarb 40. BUN 84. Creatinine 0.94. Glucose 176. She is maintained on DuoNeb inhalations, Pulmicort and Perforomist inhalations, Solu-Medrol. Protonix for GI prophylaxis. The patient is seen today September 06, 2019 tidal valve 350, FiO2 40% and a PEEP of 5. Morning blood gases revealed a PaO2 of 79, pCO2 of 66 and a pH of 7.43. She is sedated with propofol 25 mcg/kg/min. Currently on norepinephrine at 2.1 mcg/min. Lactated Ringer's at 75 mL/h. Heparin drip per weight-based protocol. She is being nourished with vital HP 30 mL/h which is goal. She is currently in sinus rhythm. Yesterday's daily interruption of sedation the patient became quite hypertensive and tachycardic. Plan for DIS again today. Performance improved Pulmicort inhalations. IV Solu-Medrol. Continued on ceftriaxone. Sputum culture was positive for Klebsiella oxytoca and Streptococcus pneumoniae. Blood culture revealed no growth. Urine culture revealed no growth 0.2. Hemoglobin 12.2. Platelets 157. Sodium 140. Potassium 4.3. Bicarb 40. BUN 76. Creatinine 0.77. The patient is seen today September 07, 2024 in follow-up in the intensive care unit. She remains intubated on the mechanical ventilator and assist-control mode at a rate of 20, tidal valve 350, FiO2 40% and a PEEP of 5. Morning blood gases revealed a PaO2 of 82, pCO2 of 64 and a pH of 7.43. She is on a heparin drip per weight-based protocol. Lactated Ringer's at 75 mL/h. Vital HP at 30 mL/h which is goal. Her propofol has been off for over 24 hours. She remains unresponsive. Chest x-ray reveals similar multifocal interstitial opacities. Endotracheal nasogastric tubes in good position. Left triple-lumen catheter in position. Sputum culture was positive for Klebsiella oxytoca and Streptococcus pneumoniae. Blood and urine cultures revealed no growth. White count 16.8. Hemoglobin 13.7. Platelets 175. Sodium 141. Potassium 5.8. Bicarb 40. BUN 70. Creatinine 0.76. Glucose 100. He is continued on DuoNeb inhalations, Pulmicort and Perforomist inhalations, Solu-Medrol. Protonix for GI proph ylaxis. She remains on Levemir and NovoLog sliding scale. She remains on ceftriaxone. She remains in a positive balance of 1.3 L. On 09/08/2024, the patient is being seen for a follow-up. The patient remains intubated on mechanical ventilator. Noted the patient has been off sedation since 09/05/2024 and the patient is very sluggish in response. This was noted yesterday and a CAT scan of the brain was done that showed no acute abnormalities. On today's evaluation, the patient grimaces only to deep painful stimulation. She is able to give me a slight grab using her right hand. Otherwise, she is not following any commands and she is considerably encephalopathic still. She remains on mechanical ventilator assist-control mode with rate of 20, tidal volume of 350, FiO2 40% with a PEEP of 5. Blood gas from today shows a pH of 7.42 with a pCO2 of 68 and pO2 of 72. She has a left sub clavian triple-lumen catheter. Chest x-ray shows a small left-sided pleural effusion and there is diffuse interstitial changes bilaterally. The patient remains hemodynamically stable. The patient is on lactated Ringer at rate of 75 cc an hour. The patient remains on IV Rocephin. The patient remains on IV Solu-Medrol. Cardiac rhythm is sinus. The patient remains on vital high- protein at rate of 30 cc an hour. The blood work from today shows a WBC count of 17 with a heme of 12.3 and a platelet count of 149. Sodium is at 139, bicarb is at 42 with a BUN of 68 and a creatinine of 0.87. The fluid balance is +1.2 L over the past 24 hours and the patient was given a dose of Lasix yesterday with improvement in urine output. The patient remains on Levemir insulin 30 units daily along with a sign scale coverage. 09/09/2024, the patient is being seen for a follow-up. The patient remains neurologically unchanged. Noted the patient has been off sedation and there is no reasonable neurologic recovery. She grimaces only to deep painful stimulation. No seizure activity. EEG was done it was consistent with encephalopathy and diffuse slowing/metabolic encephalopathy. No seizure activ ity has been noted. The patient remains on mechanical ventilator. She is on assist-control mode with rate of 20, tidal volume of 350, FiO2 of 40% with a PEEP of 5. Blood gas showed a pH of 7.47 with a pCO2 of 61 and pO2 of 67. Chest x-ray remains essentially unchanged. IV fluids at KVO. The patient is a normal sinus rhythm. The patient is eating vital high-protein at rate of 40 cc an hour for enteral feeding nutrition support. The fluid balance is negative to 11 cc over the past 24 hours. She has a left subclavian triple-lumen catheter in place. The white cell count is currently up to 35, no clear source of infection. The patient is broad in terms of antibiotic coverage and she was placed on a combination of cefepime and vancomycin. As noted, the chest x-ray shows diffuse interstitial changes bilaterally with small bilateral pleural effusions and background COPD. Of concern, is her ongoing encephalopathy. In terms of her blood work, the white cell count is at 35 with a hemoglobin 12.5 and platelet count of 185. Sodium is at 140, BUN 65 with a creatinine of 0.9 and a sodium level is at 140 and a potassium level is at 5.0. Calcium level is at 8.4. Neurology consultation was obtained.The patient remains on Levemir insulin for blood sugar control and the patient is currently on Levemir insulin 30 units along with NovoLog 10 units 4 times a day and sliding scale coverage. Blood sugar control is adequate at this point in time. 09/10/2024, the patient is being seen for a follow-up. Remains intubated on mechanical ventilator. Neurologically, the patient grimaces only to the painful stimulation. Does not follow any commands. No adequate recovery in the patien t's mentation. The patient remains off sedation for more than 3 days. However, she has required Dilaudid and morphine overnight to maintain synchrony with a mechanical ventilator as the patient was biting on the orotracheal tube. For now, she is calm and comfortable. She is on assist-control mode of mechanical ventilation at rate of 20, tidal volume of 350, FiO2 40% with a PEEP of 5. Blood gas showed a pH of 7.43 with a pCO2 of 58 and pO2 of 72. The patient's cardiac rhythm is sinus. Follow-up chest x-ray from today shows diffuse interstitial markings bilaterally and this is more consistent with volume overload. There was a concern of a ongoing pneumonia and another sputum sample was obtained yesterday and showed positive for Klebsiella oxytoca. The patient remains on a combination of cefepime and vancomycin. The white cell count is improved compared to yesterday and currently down to 24. Hemoglobin 13 with a platelet count of 188. Sodium levels at 139 with a potassium level of 4.8, BUN 61 with a creatinine of 0.7. Calcium level is at 8.3. The patient is on vital high-protein at rate of 60 cc an hour. Procalcitonin level is at 0.2. Overall fluid balance over the past 24 hours is -1.2 L and the patient remains on Lasix 20 mg IV every 12 hours. She is on metoprolol. She is on Entresto. She is on oral amiodarone 200 mg p.o. twice a day. On today's evaluation of 09/11/2024, the patient seems to be more alert. Grimacing to painful stimulation and the patient was able to follow simple commands. Nevertheless, she remains profoundly weak. She remains lethargic. No spontaneous eye opening. She has to be repeatedly stimulated for any response. She remains on a mechanical ventilator. She is on assist-control mode with rate of 20, tidal volume of 300, FiO2 40% with a PEEP of 5. The blood gas showed a pH of 7.42 with a pCO2 of 60 and pO2 of 72. Fluid balance is -74 cc over the past 24 hours. The patient remains on IV Lasix 20 mg every 12 hours. On today's blood work, she has developed some metabolic alkalosis. Sodium levels at 140 with a potassium level of 4.6, chloride is 99 with a bicarb of 40. BUN 16 with a creatinine of 0.7. The white cell count is at 22 with a hemoglobin of 13.8 and a platelet count of 210. The white scale count remains elevated. The chest x-ray findings are essentially unchanged. The patient continues to have increased interstitial markings bilaterally. The lines and the tubes are all in good location. The most recent sputum sample was positive for Klebsiella oxytoca. The blood culture was negative. Hemodynamically stable and she is on no pressors. She is on vital HP at rate of 60 cc an hour. She is also on Levemir insulin and the dose will be modified for a tighter blood sugar control. She remains on oral amiodarone 12 mg p.o. twice a day and metoprolol 50 mg p.o. twice a day. She remains on Entresto. No anticoagulants yet. On 09/12/2024, the patient is being seen for a follow-up. Some limited improvement in level of consciousness. She is opening her eyes and responding to simple questions. Nevertheless, profoundly weak, unable to move her extremities yet. She remains of sedation for more than 4 days. Noted the patient was intubated on 09/02/2024. She is on assist-control mode of mechanical ventilation at rate of 20, tidal volume of 400, FiO2 40% with a PEEP of 5. Blood gas showed a pH of 7.54 with a pCO2 of 44 and pO2 of 98. Noted the patient has been off propofol since 09/09/2024. Fluid balance is -711 cc. The patient remains on vital HP at a rate of 55 cc an hour. Cardiac rhythm is sinus. The white cell count is at 22 with a heme of 12.9 and a platelet count of 219. Sodium is at 139, potassium is 4.2, bicarb is at 40, BUN 70 with a creatinine of 0.7. Chest x-ray findings are essentially unchanged. The patient continues to have diffuse interstitial changes bilaterally with a small right- sided pleural effusion. I had a discussion with the family. Based on her ongoing slow recovery mentation and profound generalized weakness, she may be a good candidate for insertion of a tracheostomy and a PEG tube. No plans for lumbar puncture for today. On 09/13/2024, patient is being seen for a follow-up. Opens her eyes spontaneously. Does not follow commands. Grimaces to painful stimulation. Motor functions are absent. Remains on mechanical ventilator assist-control mode rate of 20, tidal volume 450, FiO2 of 40% with a PEEP of 5. Blood gas showed pH of 7.46 with a pCO2 of 46 and pO2 of 92. Fluid balance is -711 cc over the past 24 hours. Follow-up chest x-ray from today shows stable findings. Some atelectatic change left lung base and cardiomegaly and pulm vessel congestion. Improvement in the volume status compared to earlier chest x-rays. White cell count is at 20, hemoglobin 12 and a platelet count of 187. The sodium levels at 139, potassium is at 3.4, BUN 65 with a creatinine of 0.7. Blood sugar is 170. Remains on IV cefepime. Remains on Lantus insulin for blood sugar control 30 units along with NovoLog 10 units with meals. The patient is also on a combination of metoprolol and amiodarone. Cardiac rhythm is sinus. No episodes of atrial fibrillation. She remains on low-dose norepinephrine running at 0.06 mcg/kg/min. Objective - Vital Signs Vital signs: Vital Signs Temp 100.6 F H 09/13/24 04:00 Pulse 94 09/13/24 08:40 Resp 23 09/13/24 07:00 BP 118/56 09/13/24 07:00 Pulse Ox 99 09/13/24 07:00 FiO2 40 09/13/24 08:35 Intake & Output 09/12/24 09/13/24 09/13/24 18:59 06:59 18:59 Intake Total 1085.483 982 Output Total 755 1075 Balance 330.483 -93 Weight 74.653 kg Intake: IV 253 232 0.9 3cc/ hr a-line 39 36 0.9 3cc/hr cvp 39 36 0.9 at KVO 65 60 Cefepime 2 gm In Sodium 100 100 Chloride 0.9% 100 ml @ 25 mls/hr IVPB Q12HR [facility] Rx #:[id number] Lactated Ringers 1,000 ml 10 @ 20 mls/hr IV .Q24H [facility] Rx#:[id number] Intake, IV Titration 27.483 0 Amount Norepinephrine 8 mg In 27.483 0 Sodium Chloride 0.9% 250 ml @ 0.03 MCG/KG/MIN 4. 261 mls/hr IV .Q24H [facility] Rx#:[id number] Tube Feeding 715 660 Other 90 90 Output: Urine 755 1075 Other: Voiding Method Indwelling Catheter Indwelling Catheter # Bowel Movements 1 1 ABP, PAP, CO, CI - Last Documented Arterial Blood Pressure 130/49 - Exam GENERAL EXAM: Intubated, no sedation for now. Diminished level of consciousness. Opening her eyes and grimacing to painful stimulation. Orogastric and orotracheal tube are both in place. HEAD: Normocephalic. EYES: Sluggish reaction of pupils, equal size. NOSE: Clear with pink turbinates. THROAT: Oral endotracheal and gastric tube secured in place. No erythema or exudates. NECK: No masses, no JVD. CHEST: No chest wall deformity. Left subclavian triple-lumen catheter in place. LUNGS: Equal air entry with few scattered rhonchi. CVS: S1 and S2 normal with no audible murmur, regular rhythm. ABDOMEN: No hepatosplenomegaly, normal bowel sounds, no guarding or rigidity. SPINE: No scoliosis or deformity SKIN: Areas of ecchymosis and bruising. CENTRAL NERVOUS SYSTEM: Sedated, tone is normal in all 4 extremities. The patient remains encephalopathic. She grimaces to painful stimulation. Some response to verbal stimulation. Remains profoundly weak. Remains lethargic. No spontaneous eye opening. She remains off sedation. EXTREMITIES: Right radial arterial line in place. There is no peripheral edema. Peripheral pulses are intact. - Labs CBC & Chem 7: 09/13/24 04:25 09/13/24 04:25 Labs: Abnormal Lab Results - Last 24 Hours (Table) 09/12/24 09/12/24 09/12/24 Range/Units 11:57 16:39 23:59 WBC (3.8-10.6) k/uL RBC (3.80-5.40) m/uL MCV (80.0-100.0) fL ABG pCO2 (35-45) mmHg ABG HCO3 (21-25) mmol/L ABG Total CO2 (19-24) mmol/L Potassium (3.5-5.1) mmol/L Carbon Dioxide (22-30) mmol/L BUN (7-17) mg/dL Glucose (74-99) mg/dL POC Glucose (mg/dL) 116 H 126 H 161 H (70-110) mg/dL Calcium (8.4-10.2) mg/dL 09/13/24 09/13/24 09/13/24 Range/Units 04:25 04:25 04:34 WBC 20.6 H (3.8-10.6) k/uL RBC 3.54 L (3.80-5.40) m/uL MCV 105.7 H (80.0-100.0) fL ABG pCO2 46 H (35-45) mmHg ABG HCO3 31 H (21-25) mmol/L ABG Total CO2 32 H (19-24) mmol/L Potassium 3.4 L (3.5-5.1) mmol/L Carbon Dioxide 32 H (22-30) mmol/L BUN 65 H (7-17) mg/dL Glucose 215 H (74-99) mg/dL POC Glucose (mg/dL) (70-110) mg/dL Calcium 7.8 L (8.4-10.2) mg/dL 09/13/24 Range/Units 05:20 WBC (3.8-10.6) k/uL RBC (3.80-5.40) m/uL MCV (80.0-100.0) fL ABG pCO2 (35-45) mmHg ABG HCO3 (21-25) mmol/L ABG Total CO2 (19-24) mmol/L Potassium (3.5-5.1) mmol/L Carbon Dioxide (22-30) mmol/L BUN (7-17) mg/dL Glucose (74-99) mg/dL POC Glucose (mg/dL) 198 H (70-110) mg/dL Calcium (8.4-10.2) mg/dL Microbiology - Last 24 Hours (Table) 09/09/24 17:30 Blood Culture - Preliminary Blood Assessment and Plan Plan: Acute on chronic hypoxic respiratory failure secondary to a COPD exacerbation, systolic CHF exacerbation, influenza A. The patient required intubation and mechanical ventilatory support on 09/02/2024. The patient remains intubated on m echanical ventilator. Chest x-ray shows diffuse interstitial pattern and small left-sided pleural effusion. Adequate oxygenation and ventilation. Neurologically, the patient has diminished level of consciousness and the patient has been off sedation since 09/05/2024. CAT scan of the brain done on 09/07/2024 showed no acute abnormalities. EEG was done and the patient is showing diffuse encephalopathy and diffuse slowing. No seizure activity has been noted. Unable to wean and extubate because of her profound generalized weakness and diminished level of consciousness. Acute influenza A, completed a course of Tamiflu Acute exacerbation of COPD, remains on bronchodilators Acute on chronic systolic congestive heart failure. The patient has impairment of the LV function with an ejection fraction of 35%, nonischemic cardiomyopathy with moderate degree of mitral regurgitation. Bilateral pneumonia, likely superinfection following influenza A infection and the patient has positive cultures with Streptococcus pneumonia and Klebsiella oxytoca. The patient remains on broad-spectrum antibiotics and the patient is currently on a combination of cefepime and vancomycin. Repeat sputum culture from 09/09/2024 was again positive for Klebsiella oxytoca. Leukocytosis, with further rise in the white cell count. The patient is currently on IV cefepime. White cell count remains elevated Atrial fibrillation with rapid ventricular response, the patient has received cardioversion on 09/07/2024 and the patient is back in normal sinus rhythm.The patient is currently on amiodarone 400 mg p.o. twice a day The patient is also on metoprolol 50 mg twice daily. Cardiac rhythm is sinus as stated. Hemodynamically stable and the patient is currently off pressors. Alcoholism Acute metabolic encephalopathy secondary to above. The patient remains to have diminished level of consciousness. The patient has been off sedation since 09/05/2024 and the patient had a follow-up CAT scan of the brain done on 09/07/2024 that showed no acute abnormalities. EEG showed encephalopathy and diffuse slowing. Level of consciousness is gradually improving Transaminitis, likely secondary to alcoholism Moderate mitral regurgitation Nonischemic cardiomyopathy, EF of 35% Hypertension Dyslipidemia Hypothyroidism Plan: Continue ventilator support, no changes for today Monitor mentation Wean off pressors and discontinue norepinephrine Continue IV cefepime Levemir dose to 30 units for a tighter blood sugar control in addition to a sliding scale coverage. Hold anticoagulation in anticipation of possible PEG and trach insertion over the next 24 to 48 hours Neurology input is appreciated IV fluids are currently at KVO Monitor the white cell count Repeat cultures are negative. Sputum cultures positive for Klebsiella oxytoca Continue bronchodilators Continue combination of amiodarone, metoprolol and anticoagulation will be placed on hold Continue vital HP for nutritional support We will continue to follow Condition remains quite critical and this evaluation was done in 32 minutes. Evaluation was done in the intensive care unit. Time with Patient: Greater than 30
--- NOTE | 2024-09-13 13:19 | P.PN ---
Subjective Progress Note Date: 09/13/24 No new complaints. Discussed with pulmonology at bedside. Pt has been improving in terms of ability to follow commands, but remains extremely quadriparetic. LP has been considered, but deferred due to improvement of mentation off sedation. Nursing at bedside tells me that she was a little agitated today and was started on precedex. BPs labile, and still on pressors. Still spiking fevers, low-grade. Still elevated WBC count. General: intubated HEENT: normocephalic, atraumatic, no tracheal deviation Respiratory: symmetric chest rise, no cyanosis, ventilator dependent CVS: perfusing all extremities, no distal gangrene, trace pitting edema GI: soft, ND : no SPT, no CVAT, stewart is present Neuro: wakes to voice, quadriparesis Hospital Course: Patient is a 74-year-old female with past medical history significant for COPD with chronic respiratory failure, CHF, atrial fibrillation on Coumadin, and hypertension presented for 1 week worsening of breathing as well as significant cough. Initially, treated for management of acute on chronic hypoxic respiratory failure secondary to COPD exacerbation, influenza A, acute HFrEF exacerbation. Cardiology consulted. Started on IV Lasix, Coumadin continued, TTE ordered. Severe LV systolic dysfunction with EF 35%, severe pulmonary hypertension. Added Farxiga to her current medical regimen. Pt became progressively dyspnea and hallucinations, warranting BiPAP. Encephalopathy was felt secondary to ETOH withdrawal, but pt became progressively obtunded and intubated on 09/02. Also went into A-Fib with RVR, successfully cardioverted on 09/03. Sedation holidays were failed on 09/05, and after reattempt at holiday on 09/06, pt was noted the following day to be non-responsive, no withdrawal to pain, verbal stimuli, and had horizontal nystagmus. Brain CT showed no evidence of acute intracranial pathology. Neurology was consulted on 09/08 who felt that neurological changes were secondary to toxic metabolic encephalopathy. EEG completed same day confirmed findings of generalized background slowing c/w metabolic encephalopathy vs diffuse structural brain abnormality. Considerations were made for LP and Eliquis was held. Pt continued spiking fevers again starting on 09/09, leukocytosis worsened, repeat blood cultures were ordered, and started patient on broad-spectrum antibiotics with vancomycin and cefepime. Sputum cultures ultimately grew klebsiella and strep pneumo. Between 09/10-09/13, patient did note having modest improvement in neurological exam, but still extremely quadriparetic. Assessment and Plan: Septic Shock with Acute on chronic hypoxic respiratory failure multifactorial, Influenza A Klebsiella and Strep Pneumo Community Acquired Pneumonia Acute COPD exacerbation, -Pulmonology consulted, following -IV Solu-Medrol 40 mg every 12 hours discontinued on 09/11. -Continue cefepime 2 g q8h -Continue with DuoNeb Q4H scheduled and Q2N PRN. -Continue Pulmicort 1 mg INH BID and Performist 20 mcg INH BID. Acute on chronic HFrEF requiring intubation Severe pulmonary hypertension, WHO class II Moderate mitral regurgitation -Laisx 20 IV twice daily on hold for now; s/p acetazolamide 250mg BID on 09/13 -Aldactone, Losartan, Farxiga on hold., Started on Entresto -strict I/Os, daily weights Acute toxic metabolic encephalopathy Quadriparesis History of alcohol abuse -Neurology on board, discussed with them, plan is to repeat LP tomorrow if UA doesn't grow fungus -CT brain for unresponsiveness was negative -EEG with moderate to severe background slowing -Consideration of LP -repeat stat head CT today -IV thiamine 100 daily Atrial fibrillation with RVR and Supratherapeutic INR Status post cardioversion 09/03. -Cardiology on board. -Started on amiodarone 400 mg p.o. twice daily, dose decreased to 200 mg twice daily 09/10 -Continue Entresto -Continue Metoprolol 50 mg PO BID. -Started on Eliquis 5 twice daily, currently on hold in anticipation of LP DVT prophylaxis: on hold for LP Anticipated discharge pending Clinical course Objective - Vital Signs Vital signs: Vital Signs Temp 100.6 F H 09/13/24 04:00 Pulse 93 09/13/24 08:48 Resp 23 09/13/24 07:00 BP 118/56 09/13/24 07:00 Pulse Ox 99 09/13/24 07:00 FiO2 40 09/13/24 08:35 Intake & Output 09/12/24 09/13/24 09/13/24 18:59 06:59 18:59 Intake Total 1085.483 982 Output Total 755 1075 Balance 330.483 -93 Weight 74.653 kg Intake: IV 253 232 0.9 3cc/ hr a-line 39 36 0.9 3cc/hr cvp 39 36 0.9 at KVO 65 60 Cefepime 2 gm In Sodium 100 100 Chloride 0.9% 100 ml @ 25 mls/hr IVPB Q12HR [facility] Rx #:[id number] Lactated Ringers 1,000 ml 10 @ 20 mls/hr IV .Q24H [facility] Rx#:[id number] Intake, IV Titration 27.483 0 Amount Norepinephrine 8 mg In 27.483 0 Sodium Chloride 0.9% 250 ml @ 0.03 MCG/KG/MIN 4. 261 mls/hr IV .Q24H [facility] Rx#:[id number] Tube Feeding 715 660 Other 90 90 Output: Urine 755 1075 Other: Voiding Method Indwelling Catheter Indwelling Catheter # Bowel Movements 1 1 ABP, PAP, CO, CI - Last Documented Arterial Blood Pressure 130/49 - Labs CBC & Chem 7: 09/13/24 04:25 09/13/24 04:25 Labs: Abnormal Lab Results - Last 24 Hours (Table) 09/12/24 09/12/24 09/12/24 Range/Units 11:57 16:39 23:59 WBC (3.8-10.6) k/uL RBC (3.80-5.40) m/uL MCV (80.0-100.0) fL ABG pCO2 (35-45) mmHg ABG HCO3 (21-25) mmol/L ABG Total CO2 (19-24) mmol/L Potassium (3.5-5.1) mmol/L Carbon Dioxide (22-30) mmol/L BUN (7-17) mg/dL Glucose (74-99) mg/dL POC Glucose (mg/dL) 116 H 126 H 161 H (70-110) mg/dL Calcium (8.4-10.2) mg/dL 09/13/24 09/13/24 09/13/24 Range/Units 04:25 04:25 04:34 WBC 20.6 H (3.8-10.6) k/uL RBC 3.54 L (3.80-5.40) m/uL MCV 105.7 H (80.0-100.0) fL ABG pCO2 46 H (35-45) mmHg ABG HCO3 31 H (21-25) mmol/L ABG Total CO2 32 H (19-24) mmol/L Potassium 3.4 L (3.5-5.1) mmol/L Carbon Dioxide 32 H (22-30) mmol/L BUN 65 H (7-17) mg/dL Glucose 215 H (74-99) mg/dL POC Glucose (mg/dL) (70-110) mg/dL Calcium 7.8 L (8.4-10.2) mg/dL 09/13/24 Range/Units 05:20 WBC (3.8-10.6) k/uL RBC (3.80-5.40) m/uL MCV (80.0-100.0) fL ABG pCO2 (35-45) mmHg ABG HCO3 (21-25) mmol/L ABG Total CO2 (19-24) mmol/L Potassium (3.5-5.1) mmol/L Carbon Dioxide (22-30) mmol/L BUN (7-17) mg/dL Glucose (74-99) mg/dL POC Glucose (mg/dL) 198 H (70-110) mg/dL Calcium (8.4-10.2) mg/dL Microbiology - Last 24 Hours (Table) 09/09/24 17:30 Blood Culture - Preliminary Blood
[2024-09-13] MEDS ORDERED: VANCOMYCIN IV PER PHARMACY 1 EACH MISC MISCELLANE PRN (14:51)
[2024-09-13] MEDS: VANCOMYCIN 1,250 MG in SODIUM CHLORIDE 0.9% 250 ML IVPB SCH (16:39)
[2024-09-13 16:50] LABS: Glucose,Whole Blood 160 mg/dL (70-110)
[2024-09-13 16:52] LABS: Appearance,Urine Cloudy (Clear); Bacteria,Urine Occasional /hpf; Bilirubin,Urine Negative (Negative); Blood,Urine Large (Negative); Color,Urine Yellow; Glucose,Urine (UA) Negative (Negative); Ketones,Urine Negative (Negative); Leukocyte Esterase,Urine Negative (Negative); Mucus,Urine Rare /hpf; Nitrite,Urine Negative (Negative); PH, Urine 7.5 (5.0-8.0); Protein,Urine 1+ (Negative); RBC,Urine 143 /hpf (0-5); Specific Gravity,Urine 1.019 (1.001-1.035); Squamous Epithelial Cell,Urine <1 /hpf (0-4); WBC,Urine 14 /hpf (0-5)
[2024-09-13] MEDS ORDERED: INSULIN LISPRO (HumaLOG) 100 UNIT/ML 10 mL VL SQ SCH (17:00)
[2024-09-13 17:07] LABS: T4, Free (Free Thyroxine) 2.94 ng/dL (0.78-2.19)
[2024-09-13] MEDS: INSULIN LISPRO (HumaLOG) 100 UNIT/ML 10 mL VL SQ SCH ×2 (17:45)
[2024-09-13 23:50] LABS: Glucose,Whole Blood 128 mg/dL (70-110)
--- NOTE | 2024-09-14 00:28 | CT ---
EXAMINATION TYPE: CT brain wo con CT DLP: 1162.8 mGycm, Automated exposure control for dose reduction was used. DATE OF EXAM: 09/13/2024 11:20 PM COMPARISON: CT brain 09/07/2024 CLINICAL INDICATION:Female, 74 years old with history of AMS, quadriparesis, AMS, quadriparesis TECHNIQUE: Brain: Multiple axial CT images of the brain were obtained without IV contrast. . Coronal and sagitta l reformats reviewed. FINDINGS: Brain: Extra-axial spaces: No abnormal extra-axial fluid collections. Ventricular system: Within normal limits Cerebral parenchyma: Cerebral atrophy. No acute intraparenchymal hemorrhage or mass effect. The pineda -white junction is well differentiated. Scattered hypoattenuating areas are seen within the periventr icular white matter. Remote lacunar infarct within the left basal ganglia inferiorly with CSF attenua tion. Cerebellum: Unremarkable. Mass effect: No evidence of midline shift. Intracranial vasculature: Atherosclerotic calcifications of the intracranial vessels. Soft tissues: Normal. Calvarium/osseous structures: No depressed skull fracture. Paranasal sinuses and mastoid air cells: There is opacification of bilateral mastoid air cells. Air-f luid level within the left sphenoid sinus. Minimal mucosal thickening with frothy appearance within t he right sphenoid sinus. Mild mucosal thickening in the left ethmoid sinus. Remaining paranasal sinus es are clear. Visualized orbits: Bilateral aphakia IMPRESSION: 1. No acute intracranial process. 2. Remote left basal ganglia lacunar injury along with nonspecific white matter changes likely second alyssa to chronic microangiopathy. 3. Mild paranasal sinus disease with air-fluid level within the left sphenoid sinus. Correlate for ac manolo sinusitis. 4. Bilateral mastoid effusions. [facility], , 09/14/2024 12:25 AM
[2024-09-14 04:47] LABS: Basophils % (A) 0 %; Eosinophils # (A) 0.1 k/uL (0-0.7); Eosinophils % (A) 1 %; HCT 34.7 % (34.0-46.0); HGB 11.1 gm/dL (11.4-16.0); Lymphocytes # (A) 0.4 k/uL (1.0-4.8); Lymphocytes % (A) 4 %; MCH 33.7 pg (25.0-35.0); MCHC 31.9 g/dL (31.0-37.0); MCV 105.5 fL (80.0-100.0); Macrocytosis Moderate; Mean Platelet Volume 10.7; Monocytes # (A) 0.6 k/uL (0-1.0); Monocytes % (A) 5 %; Neutrophils # (A) 10.3 k/uL (1.3-7.7); Neutrophils % (A) 89 %; Platelet Count 136 k/uL (150-450); RBC 3.29 m/uL (3.80-5.40); RDW 14.6 % (11.5-15.5); WBC 11.5 k/uL (3.8-10.6)
[2024-09-14 04:58] LABS: African American GFR (CKD) >90 (>60 ml/min/1.73 sqM); Anion Gap -1 mmol/L; Blood Urea Nitrogen 55 mg/dL (7-17); Calcium 7.7 mg/dL (8.4-10.2); Carbon Dioxide 34 mmol/L (22-30); Chloride 109 mmol/L (98-107); Glucose 82 mg/dL (74-99); Magnesium 1.8 mg/dL (1.6-2.3); Non-African American GFR(CKD) 86 (>60 ml/min/1.73 sqM); Potassium 3.7 mmol/L (3.5-5.1); Sodium 142 mmol/L (137-145)
[2024-09-14 05:39] LABS: Glucose,Whole Blood 109 mg/dL (70-110)
[2024-09-14 05:47] LABS: ABG Base Excess 5.4 mmol/L; ABG HCO3 30 mmol/L (21-25); ABG Oxygen Saturation 98.7 % (94-97); ABG PCO2 43 mmHg (35-45); ABG PH 7.45 (7.35-7.45); ABG PO2 109 mmHg (83-108); ABG TCO2 31 mmol/L (19-24)
[2024-09-14 06:04] LABS: Allen Test Performed? No
[2024-09-14] MEDS: POTASSIUM BICARBONATE/CIT AC 20 MEQ TABLET.EFF NG-TUBE SCH (06:09)
[2024-09-14] MEDS: MAGNESIUM SULFATE-D5W PMX 1 GM in DEXTROSE/WATER 1 100ML.BAG IVPB ONE (06:09)
--- NOTE | 2024-09-14 06:59 | P.CONS ---
History of Present Illness - Reason for Consult Consult date: 09/13/24 Fever Requesting physician: Damaso Jauregui - Chief Complaint Fever x few days - History of Present Illness Patient is a 74-year-old female with a past medical history significant for hypertension COPD heart failure, atrial fibrillation presenting to the hospital 16 days ago on 08/28/2024 for evaluation of increasing shortness of breath along with a cough patient did have a chest x-ray cardiomegaly with pulmonary vascular congestion and initially required to be on the BiPAP however the patient did have worsening of her respiratory status and impending intubated on 09/02/2024 and also have a left subclavian catheter placement as well as art line patient did have a sputum cultures obtained on 09/02/2024 did grew Klebsiella and Streptococcus pneumonia that was treated with Rocephin with subsequent sputum culture on 09/09/2024 did grow Klebsiella antibiotic was s witched over to cefepime patient on admission to the hospital on 08/28/2024 and continued to have a fever on daily basis until 09/02/2024 her fever subsequently improved however subsequently has been running a low-grade fever with a temperature of 100.6 this morning there was also concern about the patient having mental status changes not waking up despite discontinuation of the sedation however the nursing staff mention some response decision by the patient yesterday patient still requiring pressor support did not have any diarrhea or significant purulent secretion through the ET infectious disease was consulted today because of persistent fever and need for further workup Review of Systems Positive point and negatives has been mentioned in the HPI, complete review of systems was performed and all other systems are negative Past Medical History Past Medical History: Atrial Fibrillation, Heart Failure, COPD, Hypertension History of Any Multi-Drug Resistant Organisms: None Reported Past Surgical History: Section, Hysterectomy Additional Past Surgical History / Comment(s): cataracts Past Anesthesia/Blood Transfusion Reactions: No Reported Reaction Past Psychological History: No Psychological Hx Reported Smoking Status: Former smoker Past Alcohol Use History: Daily Additional Past Alcohol Use History / Comment(s): glass of wine or rum & coke daily Past Drug Use History: Marijuana - Past Family History Mother Additional Family Medical History / Comment(s): Wegeners disease Father Family Medical History: Congestive Heart Failure (CHF) Medications and Allergies Home Medications Medication Instructions Recorded Confirmed Type Furosemide [Lasix] 20 mg PO DAILY #90 tab 06/21/23 08/28/24 Rx Losartan [Cozaar] 12.5 mg PO DAILY #90 tab 06/21/23 08/28/24 Rx Metoprolol Tartrate [Lopressor] 50 mg PO BID #180 tab 06/21/23 08/28/24 Rx Albuterol Inhaler [Ventolin Hfa 2 puff INHALATION RT-Q4H 08/17/23 08/28/24 History Inhaler] Warfarin [Coumadin] 2.5 mg PO SUTUWEFRSA 08/17/23 08/28/24 History Warfarin [Coumadin] 5 mg PO MOTH 10/31/23 08/28/24 History Amiodarone [Cordarone] 100 mg PO DAILY 08/28/24 08/28/24 History Budesonide/Glycopyr/Formoterol 2 puff INHALATION RT-BID 08/28/24 08/28/24 History [Breztri Aerosphere Inhaler] Ipratropium-Albuterol Nebulize 3 ml INHALATION RT-QID 08/28/24 08/28/24 History [Duoneb 0.5 mg-3 mg/3 ml Soln] Levothyroxine Sodium [Synthroid] 100 mcg PO DAILY 08/28/24 08/28/24 History Spironolactone [Aldactone] 25 mg PO DAILY 08/28/24 08/28/24 History Allergies Allergy/AdvReac Type Severity Reaction Status Date / Time No Known Allergies Allergy Verified 08/28/24 18:46 Physical Exam Vitals: Vital Signs Temp Pulse Resp BP Pulse Ox FiO2 09/13/24 12:07 85 09/13/24 12:02 40 09/13/24 11:59 80 09/13/24 08:48 93 09/13/24 08:40 94 09/13/24 08:38 93 09/13/24 08:35 40 09/13/24 08:30 87 09/13/24 08:00 40 09/13/24 07:00 90 23 118/56 99 09/13/24 06:00 86 24 114/64 97 09/13/24 05:00 90 20 105/73 98 09/13/24 04:11 87 09/13/24 04:02 90 40 09/13/24 04:00 100.6 F H 90 21 126/55 99 40 09/13/24 03:00 89 19 100/47 98 09/13/24 02:00 87 13 103/55 94 L 09/13/24 01:00 82 11 L 100/64 96 09/13/24 00:13 88 20 122/47 98 09/13/24 00:00 100 F H 86 20 98 40 09/12/24 23:42 84 09/12/24 23:32 80 40 09/12/24 23:00 80 20 111/47 98 09/12/24 22:00 80 7 L 115/47 97 09/12/24 21:00 80 15 119/60 100 09/12/24 20:19 84 09/12/24 20:12 89 09/12/24 20:02 86 40 09/12/24 20:00 100.3 F H 87 8 L 103/44 97 40 09/12/24 19:00 86 21 123/56 99 09/12/24 18:00 86 24 121/54 97 40 09/12/24 17:00 80 22 116/43 97 40 09/12/24 16:45 80 97 09/12/24 16:30 80 96 09/12/24 16:15 80 96 09/12/24 16:00 98.2 F 80 24 108/48 97 40 09/12/24 15:45 80 97/44 97 09/12/24 15:35 82 09/12/24 15:30 80 113/44 99 09/12/24 15:22 80 09/12/24 15:21 40 09/12/24 15:15 78 116/79 97 09/12/24 15:00 80 24 114/51 97 40 09/12/24 14:45 82 107/90 96 09/12/24 14:30 81 104/51 96 09/12/24 14:15 82 104/46 96 Intake and Output 09/12/24 09/13/24 09/13/24 22:59 06:59 14:59 Intake Total 688 754 Output Total 595 750 Balance 93 4 Intake: IV 188 199 0.9 3cc/ hr a-line 24 27 0.9 3cc/hr cvp 24 27 0.9 at KVO 40 45 Cefepime 2 gm In Sodium 100 100 Chloride 0.9% 100 ml @ 25 mls/hr IVPB Q12HR [facility] Rx #:[id number] Intake, IV Titration 0 Amount Norepinephrine 8 mg In 0 Sodium Chloride 0.9% 250 ml @ 0.03 MCG/KG/MIN 4. 261 mls/hr IV .Q24H [facility] Rx#:[id number] Tube Feeding 440 495 Other 60 60 Output: Urine 595 750 Other: Voiding Method Indwelling Catheter Indwelling Catheter # Bowel Movements 1 Weight 74.653 kg ABP, PAP, CO, CI - Last 8 Hours Arterial Blood Pressure 130/49 GENERAL DESCRIPTION: Elderly female intubated on the vent HEENT: Shows Pallor , no scleral icterus. Oral mucous membrane is dry. NECK: Trachea central, no thyromegaly. LUNGS: Unlabored breathing. Decreased breath sounds at the base HEART: S1, S2, regular rate and rhythm. No loud murmur ABDOMEN: Soft, no tenderness , guarding or rigidity, no organomegaly EXTREMITIES: No edema of feet. SKIN: No rash, no masses palpable. NEUROLOGICAL: The patient is sedated on the vent Results CBC & Chem 7: 09/14/24 04:28 09/14/24 04:28 Labs: Abnormal Lab Results - Last 24 Hours (Table) 09/12/24 09/12/24 09/13/24 Range/Units 16:39 23:59 04:25 WBC 20.6 H (3.8-10.6) k/uL RBC 3.54 L (3.80-5.40) m/uL MCV 105.7 H (80.0-100.0) fL ABG pCO2 (35-45) mmHg ABG HCO3 (21-25) mmol/L ABG Total CO2 (19-24) mmol/L Potassium (3.5-5.1) mmol/L Carbon Dioxide (22-30) mmol/L BUN (7-17) mg/dL Glucose (74-99) mg/dL POC Glucose (mg/dL) 126 H 161 H (70-110) mg/dL Calcium (8.4-10.2) mg/dL 09/13/24 09/13/24 09/13/24 Range/Units 04:25 04:34 05:20 WBC (3.8-10.6) k/uL RBC (3.80-5.40) m/uL MCV (80.0-100.0) fL ABG pCO2 46 H (35-45) mmHg ABG HCO3 31 H (21-25) mmol/L ABG Total CO2 32 H (19-24) mmol/L Potassium 3.4 L (3.5-5.1) mmol/L Carbon Dioxide 32 H (22-30) mmol/L BUN 65 H (7-17) mg/dL Glucose 215 H (74-99) mg/dL POC Glucose (mg/dL) 198 H (70-110) mg/dL Calcium 7.8 L (8.4-10.2) mg/dL 09/13/24 Range/Units 12:19 WBC (3.8-10.6) k/uL RBC (3.80-5.40) m/uL MCV (80.0-100.0) fL ABG pCO2 (35-45) mmHg ABG HCO3 (21-25) mmol/L ABG Total CO2 (19-24) mmol/L Potassium (3.5-5.1) mmol/L Carbon Dioxide (22-30) mmol/L BUN (7-17) mg/dL Glucose (74-99) mg/dL POC Glucose (mg/dL) 170 H (70-110) mg/dL Calcium (8.4-10.2) mg/dL Microbiology - Last 24 Hours (Table) 09/09/24 17:30 Blood Culture - Preliminary Blood Assessment and Plan (1) Sepsis Current Visit: Yes Status: Acute Code(s): A41.9 - SEPSIS, UNSPECIFIED ORGANISM SNOMED Code(s): 32621726 (2) Pneumonia Current Visit: No Status: Acute Code(s): J18.9 - PNEUMONIA, UNSPECIFIED ORGANISM SNOMED Code(s): 026716712 Plan: 1patient with sepsis in this patient who did have fever elevated white count in this patient with acute respiratory failure requiring intubation and has been the hospital for almost 16 days before initial consultation source of the persistent fever could be related to the multiple lines the patient has including supplement as to outlines and will need to cover for the gram-positive skin yuliya to be the likely pathogen 2-we did request for blood culture CRP procalcitonin as well as UA and culture requested by admitting team 3-discussed with the nursing staff about possible change of the lines and sending the tip for the culture she will discussed with the cnc mill operator in the a.m. 4-we will empirically add vancomycin pharmacy to dose while waiting for the workup to be completed and continue with the cefepime We will follow on clinical condition and cultures to further adjust medication if needed Thank you for this consultation we will follow the patient along with you Dictation was produced using [employer] dictation software. please excuse any grammatical, word or spelling errors. Time with Patient: Greater than 30
--- NOTE | 2024-09-14 09:13 | XR ---
EXAMINATION TYPE: XR chest 1V portable DATE OF EXAM: 09/14/2024 3:15 AM COMPARISON: 09/13/2024 CLINICAL INDICATION: Female, 74 years old with history of pneumonia, TECHNIQUE: XR chest 1V portable view(s) obtained. FINDINGS: The heart size is normal. The pulmonary vasculature is normal. Some left basilar infiltrate is present likely atelectasis. Pneumonia could be considered. Some mild subsegmental atelectasis may be present at the right base.. IMPRESSION: 1. Bibasilar infiltrates. Correlate for atelectasis. Resolving pneumonia could be considered. Continu ed follow-up is recommended [facility], , 09/14/2024 9:11 AM
--- NOTE | 2024-09-14 09:30 | P.PN ---
Subjective Progress Note Date: 09/14/24 Principal diagnosis: Respiratory failure Patient remains on the ventilator. Patient was exhibiting weakness and a CAT scan was obtained showing a remote infarct. Nothing acute. Tolerating tube feeds. Objective - Vital Signs Vital signs: Vital Signs Temp 98.2 F 09/14/24 04:00 Pulse 72 09/14/24 09:13 Resp 20 09/14/24 07:00 BP 104/51 09/14/24 07:00 Pulse Ox 97 09/14/24 07:00 FiO2 40 09/14/24 09:09 Intake & Output 09/13/24 09/14/24 09/14/24 18:59 06:59 18:59 Intake Total 4778.591 4732.670 428 Output Total 970 1030 75 Balance 277.534 288.670 353 Weight 74.9 kg Intake: IV 498 276 373 0.9 3cc/ hr a-line 33 36 3 0.9 at KVO 115 240 20 Cefepime 2 gm In Sodium 100 Chloride 0.9% 100 ml @ 25 mls/hr IVPB Q8HR [facility] Rx# :[id number] Magnesium Sulfate-D5w Pmx 100 1 gm In Dextrose/Water 1 100ml.bag @ 100 mls/hr IVPB ONCE ONE Rx#: [id number] Vancomycin 1,250 mg In 250 250 Sodium Chloride 0.9% 250 ml @ 125 mls/hr IVPB Q16H [facility] Rx#:[id number] Intake, IV Titration 54.534 322.670 Amount Dexmedetomidine/0.9% NaCl 1.058 155.71 (Pmx) 400 mcg In Empty Bag 1 bag @ 0.2 MCG/KG/HR 3.733 mls/hr IV .Q24H [facility] Rx#:[id number] Norepinephrine 8 mg In 53.476 166.960 Sodium Chloride 0.9% 250 ml @ 0.03 MCG/KG/MIN 4. 261 mls/hr IV .Q24H [facility] Rx#:[id number] Tube Feeding 605 660 55 Other 90 60 Output: Urine 970 1030 75 Other: Voiding Method Indwelling Catheter Indwelling Catheter # Bowel Movements 0 0 ABP, PAP, CO, CI - Last Documented Arterial Blood Pressure 132/50 - Exam Abdomen: Soft, nontender, nondistended - Labs CBC & Chem 7: 09/14/24 04:28 09/14/24 04:28 Labs: Abnormal Lab Results - Last 24 Hours (Table) 09/13/24 09/13/24 09/13/24 Range/Units 12:19 14:40 14:40 WBC (3.8-10.6) k/uL RBC (3.80-5.40) m/uL Hgb (11.4-16.0) gm/dL MCV (80.0-100.0) fL Plt Count (150-450) k/uL Neutrophils # (1.3-7.7) k/uL Lymphocytes # (1.0-4.8) k/uL ABG pO2 (83-108) mmHg ABG HCO3 (21-25) mmol/L ABG Total CO2 (19-24) mmol/L ABG O2 Saturation (94-97) % Hemoglobin (11.4-16.0) gm/dL Chloride (98-107) mmol/L Carbon Dioxide (22-30) mmol/L BUN (7-17) mg/dL POC Glucose (mg/dL) 170 H (70-110) mg/dL Calcium (8.4-10.2) mg/dL C-Reactive Protein 14.8 H (<1.0) mg/dL Vitamin B12 1723.0 H (200.0-944.0) pg/mL TSH <0.015 L (0.465-4.680) mIU/L Free T4 2.94 H (0.78-2.19) ng/dL Urine Appearance (Clear) Urine Protein (Negative) Urine Blood (Negative) Urine RBC (0-5) /hpf Urine WBC (0-5) /hpf Urine Bacteria (None) /hpf Urine Mucus (None) /hpf 09/13/24 09/13/24 09/13/24 Range/Units 16:42 16:49 23:49 WBC (3.8-10.6) k/uL RBC (3.80-5.40) m/uL Hgb (11.4-16.0) gm/dL MCV (80.0-100.0) fL Plt Count (150-450) k/uL Neutrophils # (1.3-7.7) k/uL Lymphocytes # (1.0-4.8) k/uL ABG pO2 (83-108) mmHg ABG HCO3 (21-25) mmol/L ABG Total CO2 (19-24) mmol/L ABG O2 Saturation (94-97) % Hemoglobin (11.4-16.0) gm/dL Chloride (98-107) mmol/L Carbon Dioxide (22-30) mmol/L BUN (7-17) mg/dL POC Glucose (mg/dL) 160 H 128 H (70-110) mg/dL Calcium (8.4-10.2) mg/dL C-Reactive Protein (<1.0) mg/dL Vitamin B12 (200.0-944.0) pg/mL TSH (0.465-4.680) mIU/L Free T4 (0.78-2.19) ng/dL Urine Appearance Cloudy H (Clear) Urine Protein 1+ H (Negative) Urine Blood Large H (Negative) Urine RBC 143 H (0-5) /hpf Urine WBC 14 H (0-5) /hpf Urine Bacteria Occasional H (None) /hpf Urine Mucus Rare H (None) /hpf 09/14/24 09/14/24 09/14/24 Range/Units 04:28 04:28 05:35 WBC 11.5 H (3.8-10.6) k/uL RBC 3.29 L (3.80-5.40) m/uL Hgb 11.1 L (11.4-16.0) gm/dL MCV 105.5 H (80.0-100.0) fL Plt Count 136 L (150-450) k/uL Neutrophils # 10.3 H (1.3-7.7) k/uL Lymphocytes # 0.4 L (1.0-4.8) k/uL ABG pO2 109 H (83-108) mmHg ABG HCO3 30 H (21-25) mmol/L ABG Total CO2 31 H (19-24) mmol/L ABG O2 Saturation 98.7 H (94-97) % Hemoglobin 11.2 L (11.4-16.0) gm/dL Chloride 109 H (98-107) mmol/L Carbon Dioxide 34 H (22-30) mmol/L BUN 55 H (7-17) mg/dL POC Glucose (mg/dL) (70-110) mg/dL Calcium 7.7 L (8.4-10.2) mg/dL C-Reactive Protein (<1.0) mg/dL Vitamin B12 (200.0-944.0) pg/mL TSH (0.465-4.680) mIU/L Free T4 (0.78-2.19) ng/dL Urine Appearance (Clear) Urine Protein (Negative) Urine Blood (Negative) Urine RBC (0-5) /hpf Urine WBC (0-5) /hpf Urine Bacteria (None) /hpf Urine Mucus (None) /hpf Microbiology - Last 24 Hours (Table) 09/09/24 17:30 Blood Culture - Preliminary Blood Assessment and Plan Plan: Continue ventilatory support. Hold tube feeds at midnight. Tentatively plan to still proceed with trach and PEG tomorrow.
[2024-09-14 09:59] LABS: ALT 94 U/L (4-34); AST 43 U/L (14-36)
--- NOTE | 2024-09-14 10:01 | P.PN ---
Subjective Progress Note Date: 09/14/24 PROGRESS NOTE The patient is a 74-year-old female with known history of COPD, nonischemic cardiomyopathy, permanent atrial fibrillation with attempted cardioversion in May 2023 who presented with progressive dyspnea and worsening peripheral edema, was diagnosed with influenza A infection. She had worsening of her respiratory status requiring mechanical ventilation. She remains intubated, good urine output and tolerating feeding. She has no evidence of malignant arrhythmia. Her echocardiogram and admission showed an ejection fraction of 35% with mild to moderate tricuspid regurgitation and severe pulmonary hypertension that has been documented in the past. She is in sinus mechanism at this time. She underwent CT scan of the head that showed no evidence of acute events. September 09: The patient remains intubated, not following verbal command. She is in sinus mechanism on no vasopressors. Her urinary output has been good. She has been evaluated by the neurology service for her mental status and felt probably to have metabolic encephalopathy. There is no evidence of recurrent atrial fibrillation. She continues to be in sinus mechanism. September 10: The patient remains intubated and sedated, in sinus mechanism. Hemodynamically stable. She had an echocardiogram that showed an ejection fraction of 40 to 45% with moderate severe pulmonary hypertension and dilated right ventricle and mild to moderate tricuspid regurgitation. She remains unresponsive and is being evaluated by the neurology service September 11: The patient remains intubated, not following command clearly. She continues to be in sinus mechanism. She continues to be of anticoagulation because of possible lumbar puncture today. Hemodynamically she is stable. Her urinary output is stable. She had no evidence of ventricular tachyarrhythmia. Her chest x-ray shows no significant changes. September 12: The patient remains intubated but is opening her eyes to verbal stimulation. She continues to be in sinus mechanism, hemodynamically stable. There is no evidence of ventricular ectopic activity. Her chest x-ray shows evidence of right-sided effusion. She did not undergo a LP. She continues to be off anticoagulation. September 13: The patient remains intubated but more awake earlier, she has been sedated at this point. The plan is to proceed with PEG tube and tracheostomy on Sunday. She is on subcu heparin. Hemodynamically she is requiring low-dose norepinephrine. There is no evidence of atrial fibrillation. Her urinary output has been stable. : The patient is intubated but following verbal command, she continues to be in sinus mechanism, hemodynamically stable, urine output has been good. She is on the lower dose of norepinephrine. She is scheduled to undergo an LP today and a trach and a PEG tomorrow. Her anticoagulation remains on hold. Medications: Amiodarone 200 mg twice a day, insulin, metoprolol tartrate 50 mg twice a day, Solu-Medrol, thiamine Lasix 20 mg IV every 12 hours Entresto 24-26 mg twice a day. Her anticoagulation is on hold for possible lumbar puncture PHYSICAL EXAMINATION: Blood pressure 132/50 heart rate 68, intubated, following command LUNGS: Clear to auscultation anteriorly HEART: Regular rate and rhythm, S1, S2. No S3. Systolic ejection murmur ABDOMEN: Soft, positive bowel sounds, no organomegaly EXTREMETIES: No edema LAB: Hemoglobin 11.1, WBC 11.5 potassium 3.7, BUN 55, 0.71 creatinine 0.77 IMPRESSION: 1. Respiratory failure with COPD exacerbation, influenza A and history of CHF with reduced ejection fraction 2. Chronic cardiomyopathy, nonischemic, 3. Atrial fibrillation, maintaining sinus mechanism, status post cardioversion 4. Prior history of alcohol intake 5. Streptococcus pneumonia with leukocytosis, improving 6. Prior history of hypertension 7. Metabolic encephalopathy., Improving PLAN: 1. Continue present therapy 2. Plan for tracheostomy and PEG tube placement on Sunday and then resume anticoagulation 3. Wean norepinephrine as tolerated 4. Monitor blood pressure and adjust treatment accordingly Objective - Vital Signs Vital signs: Vital Signs Temp 98.2 F 09/14/24 04:00 Pulse 70 09/14/24 09:42 Resp 20 09/14/24 07:00 BP 104/51 09/14/24 07:00 Pulse Ox 97 09/14/24 07:00 FiO2 40 09/14/24 09:09 Intake & Output 09/13/24 09/14/24 09/14/24 18:59 06:59 18:59 Intake Total 2951.153 8042.670 428 Output Total 970 1030 75 Balance 277.534 288.670 353 Weight 74.9 kg Intake: IV 498 276 373 0.9 3cc/ hr a-line 33 36 3 0.9 at KVO 115 240 20 Cefepime 2 gm In Sodium 100 Chloride 0.9% 100 ml @ 25 mls/hr IVPB Q8HR [facility] Rx# :[id number] Magnesium Sulfate-D5w Pmx 100 1 gm In Dextrose/Water 1 100ml.bag @ 100 mls/hr IVPB ONCE ONE Rx#: [id number] Vancomycin 1,250 mg In 250 250 Sodium Chloride 0.9% 250 ml @ 125 mls/hr IVPB Q16H [facility] Rx#:[id number] Intake, IV Titration 54.534 322.670 Amount Dexmedetomidine/0.9% NaCl 1.058 155.71 (Pmx) 400 mcg In Empty Bag 1 bag @ 0.2 MCG/KG/HR 3.733 mls/hr IV .Q24H [facility] Rx#:[id number] Norepinephrine 8 mg In 53.476 166.960 Sodium Chloride 0.9% 250 ml @ 0.03 MCG/KG/MIN 4. 261 mls/hr IV .Q24H [facility] Rx#:[id number] Tube Feeding 605 660 55 Other 90 60 Output: Urine 970 1030 75 Other: Voiding Method Indwelling Catheter Indwelling Catheter # Bowel Movements 0 0 ABP, PAP, CO, CI - Last Documented Arterial Blood Pressure 132/50 - Labs CBC & Chem 7: 09/14/24 04:28 09/14/24 04:28 Labs: Abnormal Lab Results - Last 24 Hours (Table) 09/13/24 09/13/24 09/13/24 Range/Units 12:19 14:40 14:40 WBC (3.8-10.6) k/uL RBC (3.80-5.40) m/uL Hgb (11.4-16.0) gm/dL MCV (80.0-100.0) fL Plt Count (150-450) k/uL Neutrophils # (1.3-7.7) k/uL Lymphocytes # (1.0-4.8) k/uL ABG pO2 (83-108) mmHg ABG HCO3 (21-25) mmol/L ABG Total CO2 (19-24) mmol/L ABG O2 Saturation (94-97) % Hemoglobin (11.4-16.0) gm/dL Chloride (98-107) mmol/L Carbon Dioxide (22-30) mmol/L BUN (7-17) mg/dL POC Glucose (mg/dL) 170 H (70-110) mg/dL Calcium (8.4-10.2) mg/dL C-Reactive Protein 14.8 H (<1.0) mg/dL Vitamin B12 1723.0 H (200.0-944.0) pg/mL TSH <0.015 L (0.465-4.680) mIU/L Free T4 2.94 H (0.78-2.19) ng/dL Urine Appearance (Clear) Urine Protein (Negative) Urine Blood (Negative) Urine RBC (0-5) /hpf Urine WBC (0-5) /hpf Urine Bacteria (None) /hpf Urine Mucus (None) /hpf 09/13/24 09/13/24 09/13/24 Range/Units 16:42 16:49 23:49 WBC (3.8-10.6) k/uL RBC (3.80-5.40) m/uL Hgb (11.4-16.0) gm/dL MCV (80.0-100.0) fL Plt Count (150-450) k/uL Neutrophils # (1.3-7.7) k/uL Lymphocytes # (1.0-4.8) k/uL ABG pO2 (83-108) mmHg ABG HCO3 (21-25) mmol/L ABG Total CO2 (19-24) mmol/L ABG O2 Saturation (94-97) % Hemoglobin (11.4-16.0) gm/dL Chloride (98-107) mmol/L Carbon Dioxide (22-30) mmol/L BUN (7-17) mg/dL POC Glucose (mg/dL) 160 H 128 H (70-110) mg/dL Calcium (8.4-10.2) mg/dL C-Reactive Protein (<1.0) mg/dL Vitamin B12 (200.0-944.0) pg/mL TSH (0.465-4.680) mIU/L Free T4 (0.78-2.19) ng/dL Urine Appearance Cloudy H (Clear) Urine Protein 1+ H (Negative) Urine Blood Large H (Negative) Urine RBC 143 H (0-5) /hpf Urine WBC 14 H (0-5) /hpf Urine Bacteria Occasional H (None) /hpf Urine Mucus Rare H (None) /hpf 09/14/24 09/14/24 09/14/24 Range/Units 04:28 04:28 05:35 WBC 11.5 H (3.8-10.6) k/uL RBC 3.29 L (3.80-5.40) m/uL Hgb 11.1 L (11.4-16.0) gm/dL MCV 105.5 H (80.0-100.0) fL Plt Count 136 L (150-450) k/uL Neutrophils # 10.3 H (1.3-7.7) k/uL Lymphocytes # 0.4 L (1.0-4.8) k/uL ABG pO2 109 H (83-108) mmHg ABG HCO3 30 H (21-25) mmol/L ABG Total CO2 31 H (19-24) mmol/L ABG O2 Saturation 98.7 H (94-97) % Hemoglobin 11.2 L (11.4-16.0) gm/dL Chloride 109 H (98-107) mmol/L Carbon Dioxide 34 H (22-30) mmol/L BUN 55 H (7-17) mg/dL POC Glucose (mg/dL) (70-110) mg/dL Calcium 7.7 L (8.4-10.2) mg/dL C-Reactive Protein (<1.0) mg/dL Vitamin B12 (200.0-944.0) pg/mL TSH (0.465-4.680) mIU/L Free T4 (0.78-2.19) ng/dL Urine Appearance (Clear) Urine Protein (Negative) Urine Blood (Negative) Urine RBC (0-5) /hpf Urine WBC (0-5) /hpf Urine Bacteria (None) /hpf Urine Mucus (None) /hpf Microbiology - Last 24 Hours (Table) 09/09/24 17:30 Blood Culture - Preliminary Blood
--- NOTE | 2024-09-14 10:41 | P.PN ---
Subjective Progress Note Date: 09/13/24 08/12/2024: Patient was seen for follow-up. Completely unchanged. Still grimacing to painful stimuli with all 4 extremities. Not waking up. Not following directions. 08/11/2024: Patient was seen for a follow-up. Patient continues to be intubated. Off sedation. Not much improvement. No seizure-like activity. 09/11/2024: Patient was seen for follow-up. Patient is in the bed. Patient is off sedation. Patient is on hold for Eliquis for possible lumbar puncture. 09/10/2024: Patient was seen for a follow-up. Patient has been off sedation for last 48 hours. Prior to that, she has been sporadically on low-dose propofol 10 mcg/kg's per minute. Patient is currently on cefepime and vancomycin. She turns her head, nurse does not follow commands. Sometimes fluttering her eyes. Patient has Klebsiella and Streptococcus pneumonia in the sputum with elevated white cells. Patient on antibiotics. ID following. Patient has atrial fibrillation with RVR. Eliquis on hold because patient is undergoing LP tomorrow. Per nurse report, patient was admitted on 08/28/2024 for shortness of breath, blood pressure issues. She was admitted to 3 [address]. An A-team was called for patient with altered mental status, hallucinations and appeared patient has history of alcoholism. She was started on CIWA protocol. Patient was intubated on 09/02/2024. She is also influenza positive. Objective - Vital Signs Vital signs: Vital Signs Temp 100.6 F H 09/13/24 04:00 Pulse 86 09/13/24 15:36 Resp 23 09/13/24 07:00 BP 118/56 09/13/24 07:00 Pulse Ox 99 09/13/24 07:00 FiO2 40 09/13/24 15:29 Intake & Output 09/12/24 09/13/24 09/13/24 18:59 06:59 18:59 Intake Total 1085.483 982 502.058 Output Total 755 1075 160 Balance 330.483 -93 342.058 Weight 74.653 kg Intake: IV 253 232 56 0.9 3cc/ hr a-line 39 36 21 0.9 3cc/hr cvp 39 36 0.9 at KVO 65 60 35 Cefepime 2 gm In Sodium 100 100 Chloride 0.9% 100 ml @ 25 mls/hr IVPB Q12HR [facility] Rx #:[id number] Lactated Ringers 1,000 ml 10 @ 20 mls/hr IV .Q24H [facility] Rx#:[id number] Intake, IV Titration 27.483 0 1.058 Amount Dexmedetomidine/0.9% NaCl 1.058 (Pmx) 400 mcg In Empty Bag 1 bag @ 0.2 MCG/KG/HR 3.733 mls/hr IV .Q24H [facility] Rx#:[id number] Norepinephrine 8 mg In 27.483 0 Sodium Chloride 0.9% 250 ml @ 0.03 MCG/KG/MIN 4. 261 mls/hr IV .Q24H [facility] Rx#:[id number] Tube Feeding 715 660 385 Other 90 90 60 Output: Urine 755 1075 160 Other: Voiding Method Indwelling Catheter Indwelling Catheter Indwelling Catheter # Bowel Movements 1 1 ABP, PAP, CO, CI - Last Documented Arterial Blood Pressure 130/49 - Exam Patient is off sedation for last 120 hours. She sometimes moves her head [id number]. Patient grimaces with painful stimuli, equally with all 4 extremities. Does not follow commands otherwise. Patient continues to be very encephalopathic. Rest of the examination is unchanged. - Labs CBC & Chem 7: 09/14/24 04:28 09/14/24 04:28 Labs: Abnormal Lab Results - Last 24 Hours (Table) 09/12/24 09/12/24 09/13/24 Range/Units 16:39 23:59 04:25 WBC 20.6 H (3.8-10.6) k/uL RBC 3.54 L (3.80-5.40) m/uL MCV 105.7 H (80.0-100.0) fL ABG pCO2 (35-45) mmHg ABG HCO3 (21-25) mmol/L ABG Total CO2 (19-24) mmol/L Potassium (3.5-5.1) mmol/L Carbon Dioxide (22-30) mmol/L BUN (7-17) mg/dL Glucose (74-99) mg/dL POC Glucose (mg/dL) 126 H 161 H (70-110) mg/dL Calcium (8.4-10.2) mg/dL C-Reactive Protein (<1.0) mg/dL 09/13/24 09/13/24 09/13/24 Range/Units 04:25 04:34 05:20 WBC (3.8-10.6) k/uL RBC (3.80-5.40) m/uL MCV (80.0-100.0) fL ABG pCO2 46 H (35-45) mmHg ABG HCO3 31 H (21-25) mmol/L ABG Total CO2 32 H (19-24) mmol/L Potassium 3.4 L (3.5-5.1) mmol/L Carbon Dioxide 32 H (22-30) mmol/L BUN 65 H (7-17) mg/dL Glucose 215 H (74-99) mg/dL POC Glucose (mg/dL) 198 H (70-110) mg/dL Calcium 7.8 L (8.4-10.2) mg/dL C-Reactive Protein (<1.0) mg/dL 09/13/24 09/13/24 Range/Units 12:19 14:40 WBC (3.8-10.6) k/uL RBC (3.80-5.40) m/uL MCV (80.0-100.0) fL ABG pCO2 (35-45) mmHg ABG HCO3 (21-25) mmol/L ABG Total CO2 (19-24) mmol/L Potassium (3.5-5.1) mmol/L Carbon Dioxide (22-30) mmol/L BUN (7-17) mg/dL Glucose (74-99) mg/dL POC Glucose (mg/dL) 170 H (70-110) mg/dL Calcium (8.4-10.2) mg/dL C-Reactive Protein 14.8 H (<1.0) mg/dL Microbiology - Last 24 Hours (Table) 09/09/24 17:30 Blood Culture - Preliminary Blood Assessment and Plan Assessment: Altered mental status, likely due to toxic metabolic encephalopathy. Reasons multifactorial as mentioned below Rule out cephalosporin toxicity. Rule out intracranial infection. Patient is spiking temperatures again. Elevated pCO2, 65, now 46. Acute kidney injury, improving Ventilatory dependent respiratory failure COPD exacerbation CHF exacerbation Acute influenza A, completed course of Tamiflu Bilateral pneumonia, treated with cefepime Septic shock, due to Klebsiella pneumonia, resolved Leukocytosis Atrial fibrillation with rapid ventricular response History of alcoholism Macrocytosis Moderate MR Nonischemic cardiomyopathy with EF 35% Hypertension Hyperlipidemia Hypothyroidism Plan: * Patient is not showing much improvement clinically. Continues to be severely encephalopathic. * Patient is again spiking temperature. We will perform lumbar puncture. Tomorrow will be the 5 days after stopping Eliquis. Last dose was 8 AM on 09/08/2024. * Uncertain if patient has cephalosporin toxicity. Consider switching antibiotic. * EEG 09/08/2024 was abnormal, due to background slowing of moderate to severe degree. This is suggestive of generalized cerebral dysfunction as can be seen with toxic metabolic encephalopathy or related to diffuse structural brain abnormality. Clinical correlation is recommended. No epileptiform activity was seen. * Repeat CT head, rule out any mass lesion/CVA. * B12 1723, folate 9.7, TSH <0.015, with free T4 elevated 2.94. We will defer to IM to address abnormal thyroid functions. * Check ammonia level. * Consult ID for persistent altered mental status, and recurrent spiking temper ature * Discussed in detail with primary physician, ICU team and nursing staff. * Medical management as per IM, critical care and other specialties on board. * Hopefully patient's mentation will improve, once metabolic conditions comes under control. * Supportive care
[2024-09-14 12:53] LABS: Glucose,CSF 58 mg/dL (40-70); Total Protein,CSF 36 mg/dL (12-60)
--- NOTE | 2024-09-14 12:55 | P.PN ---
Subjective Progress Note Date: 09/14/24 This is a 74-year-old female, familiar to my service, patient is known to have history of COPD, severe, history of chronic cor pulmonale, history of nonischemic cardiomyopathy and LV dysfunction as well as history of chronic atrial fibrillation maintained on Coumadin. Patient is also known to have histo ry of moderate mitral regurgitation. Patient is normally on oxygen at 2 L/min, she is normally on diuretics, and she was very seen about a week ago in my office with worsening swelling of her lower extremities, and patient was placed on Aldactone in addition to her Lasix. Her leg swelling improved, however patient came into the ER on 08/28/2024, came in mostly with worsening shortness of breath, cough, wheezing, apparently when she was brought in by EMS she was found to be in tripod position and she was breathing quite heavy. Patient was placed on BiPAP, that seemed to improve her pulmonary status significantly on BiPAP. In the ER, patient was noted to have positive screening for acute influenza A. Last night I was notified about this patient about her shortness of breath and being BiPAP dependent, patient is known to have history of alcohol drinking, and there was also a concern about the patient going into alcohol withdrawal. Patient required some Ativan, admitted to the ICU for close monitoring. I was asked to see her in consultation. In addition to her COPD, patient had positive screening for influenza A. Today I saw the patient in the ICU, she is still on BiPAP 12/5/40%, patient is receiving Lasix, she is also on Aldactone, patient is on Tamiflu, and she is on her usual bronchodilators and on Solu-Medrol. WBC count is 11.9 hemoglobin 12.3 INR is 3.1 electrolytes are normal renal profile is normal troponin is less than 0.012 Evaluated today on 08/31/2024, patient remains in the ICU, patient is on 4 L nasal cannula, last night she was on BiPAP 12/5/40%, patient remains on bronchodilators, Lasix, Coumadin, and she is also on doxycycline. Baseline FEV1 from my office chart is 42% at best. Clearly the patient has severe underlying COPD. Patient is now on nasal cannula, had to be on BiPAP yesterday. Chest x- ray today is suggestive of interstitial edema, underlying pneumonia is felt to be less likely but not entirely ruled out. WBC count is 11.4 hemoglobin is 14.3 INR is 3.3 electrolytes are normal bicarb is 4 0 BUN is 27 creatinine 0.66 The patient is seen today September 01, 2024 in follow-up in the intensive care unit. She is currently sitting up in bed. She is quite restless. Moving from [id number]. She was on BiPAP 12/5 and 40% FiO2. She is currently on 4 L nasal cannula. Her O2 saturation did drop into the 70s when she had her oxygen off. She did require Ativan throughout the night. Recent arterial blood gases revealed a PH of 69, pCO2 79 and a pH of 7.38. She is continued on DuoNeb inhalations, Symbicort, Solu-Medrol. Empiric antibiotics in the form of doxycycline. She remains on IV diuretics. Remains on the CIOK protocol. Anticoagulated with warfarin. White count 11.4. Hemoglobin 14.4. Platelets 169. INR 4.8. Sodium 150. Potassium 3.9. Bicarb 45. BUN 39. Creatinine 0.67. Chest x-ray reveals similar moderate interstitial opacities. The patient is seen today September 02, 2024 in follow-up in the intensive care unit. Throughout the night and early this morning she became more obtunded. She was maintained on BiPAP 12/5 and 50% FiO2. PaO2 of 90, pCO2 of 97 and a pH of 7.34. She subsequently had undergone intubation and mechanical ventilatory support. She is currently on assist-control mode at a rate of 20, tidal volume 350, FiO2 100% and a PEEP of 5. Follow-up blood gases revealed a PaO2 of 332, pCO2 75 and a pH of 7.43. The FiO2 was decreased to 40%. White count 11.4. Hemoglobin 14.7. Platelets 173. Sodium 150. Potassium 4.2. Bicarb 47. BUN 59. Creatinine 0.67. Glucose 378. AST 50. ALT 58. Amiodarone at 0.5 mg/h. Her INR was 7.2. She did receive vitamin K. She is requiring norepinephrine at 0.03 mcg/kg/min. Propofol at 15 mcg/kg/min. Continued on DuoNeb inhalations, S ymbicort, doxycycline. Chest x-ray shows evidence of COPD with superimposed pulmonary vascular congestion. Ongoing patchy left basilar and retrocardiac opacity. The patient is seen today September 03, 2024 in follow-up in the intensive care unit. She remains intubated on mechanical ventilator. Currently on assist- control mode with a rate of 20, tidal volume 350, FiO2 40% and a PEEP of 5. Morning blood gases revealed a PaO2 of 83, pCO2 of 80 and a pH of 7.38. She is still having issues with atrial fibrillation with rapid ventricular response. She is on a amiodarone drip at 1 mg/min. Remains on norepinephrine at 3.4 mcg/min. D5W at 125 mL/h. Propofol at 20 mcg/kg/min. Insulin drip at 6 units/h. She is being nourished with vital HP at 30 mL/h with a goal of 38. Chest x-ray reveals diffuse interstitial changes on a background of COPD. Small left pleural effusion. Retrocardiac consolidation/atelectasis. Blood culture reveals no growth. Sputum culture reveals no growth to date. 14.5. Platelets 222. INR 1.6. Sodium 136. Potassium 3.8. Bicarb 45. BUN 70. Creatinine 0 .91. Glucose 213. She remains on DuoNeb and elations, Pulmicort and Perforomist inhalations, IV Solu-Medrol. Remains on warfarin. Remains on Protonix. The patient is seen today September 04, 2024 in follow-up in the intensive care unit. She remains intubated on the mechanical ventilator. Currently on assist- control mode with a rate of 20, tidal volume 350, FiO2 40% and a PEEP of 5. Morning blood gases revealed a PaO2 of 76, pCO2 77 and a pH of 7.36. She remains in atrial fibrillation with a rapid ventricular response and an undergone cardioversion this a.m. with 200 J and is currently back in sinus rhythm. She remains on amiodarone drip at 0.5 mg/min. Heparin drip per weight- based protocol. Sedated with propofol at 30 mcg/kg/min. Norepinephrine at 1 mcg/min. Lactated Ringer's at 75 mL/h. She is being nourished with vital HP at 38 mL/h which is goal. She is continued on DuoNeb and elations, Pulmicort and Perforomist inhalations, IV Solu-Medrol. Protonix for GI prophylaxis. Remains on doxycycline. Sputum culture now revealing Streptococcus pneumoniae. White count 13.8. Hemoglobin 13.9. Platelets 157. INR 1.3. Sodium 132. Potassium 4.9. Bicarb 35. BUN 89. Creatinine 0.95. Glucose 178. The patient is seen today September 05, 2024 in follow-up in the intensive care unit. She remains intubated on the mechanical ventilator. Currently on assist- control mode with a rate of 20, tidal valve 350, FiO2 40% and a PEEP of 5. Morning blood gases revealed a PaO2 of 87, pCO2 of 73 and a pH of 7.38. Chest x-ray reveals cardiomegaly with small left pleural effusion. She is sedated on propofol at 30 mcg/kg/min. Remains on norepinephrine at 2 mcg/min. Continued on a heparin drip per weight-based protocol. Lactated Ringer's at 75 mL/h. She is being nourished with vital HP at 30 mL/h which is goal. She is continued on ceftriaxone. Sputum culture was positive for Klebsiella oxytoca and Streptococcus pneumoniae. Blood culture revealed no growth. Urine culture revealed no growth. White count 16.0. Hemoglobin 12.8. Platelets 147. Sodium 136. Potassium 4.7. Bicarb 40. BUN 84. Creatinine 0.94. Glucose 176. She is maintained on DuoNeb inhalations, Pulmicort and Perforomist inhalations, Solu-Medrol. Protonix for GI prophylaxis. The patient is seen today September 06, 2019 tidal valve 350, FiO2 40% and a PEEP of 5. Morning blood gases revealed a PaO2 of 79, pCO2 of 66 and a pH of 7.43. She is sedated with propofol 25 mcg/kg/min. Currently on norepinephrine at 2.1 mcg/min. Lactated Ringer's at 75 mL/h. Heparin drip per weight-based protocol. She is being nourished with vital HP 30 mL/h which is goal. She is currently in sinus rhythm. Yesterday's daily interruption of sedation the patient became quite hypertensive and tachycardic. Plan for DIS again today. Performance improved Pulmicort inhalations. IV Solu-Medrol. Continued on ceftriaxone. Sputum culture was positive for Klebsiella oxytoca and Streptococcus pneumoniae. Blood culture revealed no growth. Urine culture revealed no growth 0.2. Hemoglobin 12.2. Platelets 157. Sodium 140. Potassium 4.3. Bicarb 40. BUN 76. Creatinine 0.77. The patient is seen today September 07, 2024 in follow-up in the intensive care unit. She remains intubated on the mechanical ventilator and assist-control mode at a rate of 20, tidal valve 350, FiO2 40% and a PEEP of 5. Morning blood gases revealed a PaO2 of 82, pCO2 of 64 and a pH of 7.43. She is on a heparin drip per weight-based protocol. Lactated Ringer's at 75 mL/h. Vital HP at 30 mL/h which is goal. Her propofol has been off for over 24 hours. She remains unresponsive. Chest x-ray reveals similar multifocal interstitial opacities. Endotracheal nasogastric tubes in good position. Left triple-lumen catheter in position. Sputum culture was positive for Klebsiella oxytoca and Streptococcus pneumoniae. Blood and urine cultures revealed no growth. White count 16.8. Hemoglobin 13.7. Platelets 175. Sodium 141. Potassium 5.8. Bicarb 40. BUN 70. Creatinine 0.76. Glucose 100. He is continued on DuoNeb inhalations, Pulmicort and Perforomist inhalations, Solu-Medrol. Protonix for GI proph ylaxis. She remains on Levemir and NovoLog sliding scale. She remains on ceftriaxone. She remains in a positive balance of 1.3 L. On 09/08/2024, the patient is being seen for a follow-up. The patient remains intubated on mechanical ventilator. Noted the patient has been off sedation since 09/05/2024 and the patient is very sluggish in response. This was noted yesterday and a CAT scan of the brain was done that showed no acute abnormalities. On today's evaluation, the patient grimaces only to deep painful stimulation. She is able to give me a slight grab using her right hand. Otherwise, she is not following any commands and she is considerably encephalopathic still. She remains on mechanical ventilator assist-control mode with rate of 20, tidal volume of 350, FiO2 40% with a PEEP of 5. Blood gas from today shows a pH of 7.42 with a pCO2 of 68 and pO2 of 72. She has a left sub clavian triple-lumen catheter. Chest x-ray shows a small left-sided pleural effusion and there is diffuse interstitial changes bilaterally. The patient remains hemodynamically stable. The patient is on lactated Ringer at rate of 75 cc an hour. The patient remains on IV Rocephin. The patient remains on IV Solu-Medrol. Cardiac rhythm is sinus. The patient remains on vital high- protein at rate of 30 cc an hour. The blood work from today shows a WBC count of 17 with a heme of 12.3 and a platelet count of 149. Sodium is at 139, bicarb is at 42 with a BUN of 68 and a creatinine of 0.87. The fluid balance is +1.2 L over the past 24 hours and the patient was given a dose of Lasix yesterday with improvement in urine output. The patient remains on Levemir insulin 30 units daily along with a sign scale coverage. 09/09/2024, the patient is being seen for a follow-up. The patient remains neurologically unchanged. Noted the patient has been off sedation and there is no reasonable neurologic recovery. She grimaces only to deep painful stimulation. No seizure activity. EEG was done it was consistent with encephalopathy and diffuse slowing/metabolic encephalopathy. No seizure activ ity has been noted. The patient remains on mechanical ventilator. She is on assist-control mode with rate of 20, tidal volume of 350, FiO2 of 40% with a PEEP of 5. Blood gas showed a pH of 7.47 with a pCO2 of 61 and pO2 of 67. Chest x-ray remains essentially unchanged. IV fluids at KVO. The patient is a normal sinus rhythm. The patient is eating vital high-protein at rate of 40 cc an hour for enteral feeding nutrition support. The fluid balance is negative to 11 cc over the past 24 hours. She has a left subclavian triple-lumen catheter in place. The white cell count is currently up to 35, no clear source of infection. The patient is broad in terms of antibiotic coverage and she was placed on a combination of cefepime and vancomycin. As noted, the chest x-ray shows diffuse interstitial changes bilaterally with small bilateral pleural effusions and background COPD. Of concern, is her ongoing encephalopathy. In terms of her blood work, the white cell count is at 35 with a hemoglobin 12.5 and platelet count of 185. Sodium is at 140, BUN 65 with a creatinine of 0.9 and a sodium level is at 140 and a potassium level is at 5.0. Calcium level is at 8.4. Neurology consultation was obtained.The patient remains on Levemir insulin for blood sugar control and the patient is currently on Levemir insulin 30 units along with NovoLog 10 units 4 times a day and sliding scale coverage. Blood sugar control is adequate at this point in time. 09/10/2024, the patient is being seen for a follow-up. Remains intubated on mechanical ventilator. Neurologically, the patient grimaces only to the painful stimulation. Does not follow any commands. No adequate recovery in the patien t's mentation. The patient remains off sedation for more than 3 days. However, she has required Dilaudid and morphine overnight to maintain synchrony with a mechanical ventilator as the patient was biting on the orotracheal tube. For now, she is calm and comfortable. She is on assist-control mode of mechanical ventilation at rate of 20, tidal volume of 350, FiO2 40% with a PEEP of 5. Blood gas showed a pH of 7.43 with a pCO2 of 58 and pO2 of 72. The patient's cardiac rhythm is sinus. Follow-up chest x-ray from today shows diffuse interstitial markings bilaterally and this is more consistent with volume overload. There was a concern of a ongoing pneumonia and another sputum sample was obtained yesterday and showed positive for Klebsiella oxytoca. The patient remains on a combination of cefepime and vancomycin. The white cell count is improved compared to yesterday and currently down to 24. Hemoglobin 13 with a platelet count of 188. Sodium levels at 139 with a potassium level of 4.8, BUN 61 with a creatinine of 0.7. Calcium level is at 8.3. The patient is on vital high-protein at rate of 60 cc an hour. Procalcitonin level is at 0.2. Overall fluid balance over the past 24 hours is -1.2 L and the patient remains on Lasix 20 mg IV every 12 hours. She is on metoprolol. She is on Entresto. She is on oral amiodarone 200 mg p.o. twice a day. On today's evaluation of 09/11/2024, the patient seems to be more alert. Grimacing to painful stimulation and the patient was able to follow simple commands. Nevertheless, she remains profoundly weak. She remains lethargic. No spontaneous eye opening. She has to be repeatedly stimulated for any response. She remains on a mechanical ventilator. She is on assist-control mode with rate of 20, tidal volume of 300, FiO2 40% with a PEEP of 5. The blood gas showed a pH of 7.42 with a pCO2 of 60 and pO2 of 72. Fluid balance is -74 cc over the past 24 hours. The patient remains on IV Lasix 20 mg every 12 hours. On today's blood work, she has developed some metabolic alkalosis. Sodium levels at 140 with a potassium level of 4.6, chloride is 99 with a bicarb of 40. BUN 16 with a creatinine of 0.7. The white cell count is at 22 with a hemoglobin of 13.8 and a platelet count of 210. The white scale count remains elevated. The chest x-ray findings are essentially unchanged. The patient continues to have increased interstitial markings bilaterally. The lines and the tubes are all in good location. The most recent sputum sample was positive for Klebsiella oxytoca. The blood culture was negative. Hemodynamically stable and she is on no pressors. She is on vital HP at rate of 60 cc an hour. She is also on Levemir insulin and the dose will be modified for a tighter blood sugar control. She remains on oral amiodarone 12 mg p.o. twice a day and metoprolol 50 mg p.o. twice a day. She remains on Entresto. No anticoagulants yet. On 09/12/2024, the patient is being seen for a follow-up. Some limited improvement in level of consciousness. She is opening her eyes and responding to simple questions. Nevertheless, profoundly weak, unable to move her extremities yet. She remains of sedation for more than 4 days. Noted the patient was intubated on 09/02/2024. She is on assist-control mode of mechanical ventilation at rate of 20, tidal volume of 400, FiO2 40% with a PEEP of 5. Blood gas showed a pH of 7.54 with a pCO2 of 44 and pO2 of 98. Noted the patient has been off propofol since 09/09/2024. Fluid balance is -711 cc. The patient remains on vital HP at a rate of 55 cc an hour. Cardiac rhythm is sinus. The white cell count is at 22 with a heme of 12.9 and a platelet count of 219. Sodium is at 139, potassium is 4.2, bicarb is at 40, BUN 70 with a creatinine of 0.7. Chest x-ray findings are essentially unchanged. The patient continues to have diffuse interstitial changes bilaterally with a small right- sided pleural effusion. I had a discussion with the family. Based on her ongoing slow recovery mentation and profound generalized weakness, she may be a good candidate for insertion of a tracheostomy and a PEG tube. No plans for lumbar puncture for today. On 09/13/2024, patient is being seen for a follow-up. Opens her eyes spontaneously. Does not follow commands. Grimaces to painful stimulation. Motor functions are absent. Remains on mechanical ventilator assist-control mode rate of 20, tidal volume 450, FiO2 of 40% with a PEEP of 5. Blood gas showed pH of 7.46 with a pCO2 of 46 and pO2 of 92. Fluid balance is -711 cc over the past 24 hours. Follow-up chest x-ray from today shows stable findings. Some atelectatic change left lung base and cardiomegaly and pulm vessel congestion. Improvement in the volume status compared to earlier chest x-rays. White cell count is at 20, hemoglobin 12 and a platelet count of 187. The sodium levels at 139, potassium is at 3.4, BUN 65 with a creatinine of 0.7. Blood sugar is 170. Remains on IV cefepime. Remains on Lantus insulin for blood sugar control 30 units along with NovoLog 10 units with meals. The patient is also on a combination of metoprolol and amiodarone. Cardiac rhythm is sinus. No episodes of atrial fibrillation. She remains on low-dose norepinephrine running at 0.06 mcg/kg/min. On 09/14/2024, neurologic functions are essentially unchanged. Remains unresponsive to verbal. She grimaces and she says it is painful stimulation. No significant motor function. Remains intubated on mechanical ventilator. She was running a low-grade fever and fever workup is in progress. Repeat cultures were sent. The patient was taken off IV cefepime and switched to vancomycin. She is on assist-control mode with rate of 20, tidal volume of 450, FiO2 40% with a PEEP of 5. pH is 7.45 with a pCO2 of 43 and pO2 of 107. Chest x-ray findings are essentially stable without any significant airspace disease or consolidation. The follow-up chest x-ray from today shows some mild pulm vascular congestion otherwise no other acute abnormalities noted. Fluid balance is +566 cc over the past 24 hours. The patient is on KVO IV fluids. The patient is on vital high-protein rate of 50 cc an hour. Remains on low-dose norepinephrine at 0.02 mcg/kg/min. The white cell count is at 11.5 with a he moglobin 11.1 and a platelet count of 136. The sodium is at 142, bicarb is at 34, BUN is 55 with a creatinine of 0.7. AST is 43, ALT is 94.Repeat CAT scan of the brain was done on 09/14/2024 and showed no acute intracranial process. There is remote left basal ganglia lacunar injury with some nonspecific white matter changes secondary to chronic microangiopathy and chronic sinus disease.The most recent procalcitonin level is at 0.27 Objective - Vital Signs Vital signs: Vital Signs Temp 98.2 F 09/14/24 04:00 Pulse 68 09/14/24 07:00 Resp 20 09/14/24 07:00 BP 104/51 09/14/24 07:00 Pulse Ox 97 09/14/24 07:00 FiO2 40 09/14/24 04:33 Intake & Output 09/13/24 09/14/24 09/14/24 18:59 06:59 18:59 Intake Total 0390.509 9219.670 428 Output Total 970 1030 75 Balance 277.534 288.670 353 Weight 74.9 kg Intake: IV 498 276 373 0.9 3cc/ hr a-line 33 36 3 0.9 at KVO 115 240 20 Cefepime 2 gm In Sodium 100 Chloride 0.9% 100 ml @ 25 mls/hr IVPB Q8HR [facility] Rx# :[id number] Magnesium Sulfate-D5w Pmx 100 1 gm In Dextrose/Water 1 100ml.bag @ 100 mls/hr IVPB ONCE ONE Rx#: [id number] Vancomycin 1,250 mg In 250 250 Sodium Chloride 0.9% 250 ml @ 125 mls/hr IVPB Q16H [facility] Rx#:[id number] Intake, IV Titration 54.534 322.670 Amount Dexmedetomidine/0.9% NaCl 1.058 155.71 (Pmx) 400 mcg In Empty Bag 1 bag @ 0.2 MCG/KG/HR 3.733 mls/hr IV .Q24H [facility] Rx#:[id number] Norepinephrine 8 mg In 53.476 166.960 Sodium Chloride 0.9% 250 ml @ 0.03 MCG/KG/MIN 4. 261 mls/hr IV .Q24H [facility] Rx#:[id number] Tube Feeding 605 660 55 Other 90 60 Output: Urine 970 1030 75 Other: Voiding Method Indwelling Catheter Indwelling Catheter # Bowel Movements 0 0 ABP, PAP, CO, CI - Last Documented Arterial Blood Pressure 132/50 - Exam GENERAL EXAM: Intubated, no sedation for now. Diminished level of consciousness. Opening her eyes and grimacing to painful stimulation. Orogastric and orotracheal tube are both in place. HEAD: Normocephalic. EYES: Sluggish reaction of pupils, equal size. NOSE: Clear with pink turbinates. THROAT: Oral endotracheal and gastric tube secured in place. No erythema or exudates. NECK: No masses, no JVD. CHEST: No chest wall deformity. Left subclavian triple-lumen catheter in place. LUNGS: Equal air entry with few scattered rhonchi. CVS: S1 and S2 normal with no audible murmur, regular rhythm. ABDOMEN: No hepatosplenomegaly, normal bowel sounds, no guarding or rigidity. SPINE: No scoliosis or deformity SKIN: Areas of ecchymosis and bruising. CENTRAL NERVOUS SYSTEM: Sedated, tone is normal in all 4 extremities. The patient remains encephalopathic. She grimaces to painful stimulation. Some response to verbal stimulation. Remains profoundly weak. Remains lethargic. No spontaneous eye opening. She remains off sedation. EXTREMITIES: Right radial arterial line in place. There is no peripheral edema. Peripheral pulses are intact. - Labs CBC & Chem 7: 09/14/24 04:28 09/14/24 04:28 Labs: Abnormal Lab Results - Last 24 Hours (Table) 09/13/24 09/13/24 09/13/24 Range/Units 12:19 14:40 14:40 WBC (3.8-10.6) k/uL RBC (3.80-5.40) m/uL Hgb (11.4-16.0) gm/dL MCV (80.0-100.0) fL Plt Count (150-450) k/uL Neutrophils # (1.3-7.7) k/uL Lymphocytes # (1.0-4.8) k/uL ABG pO2 (83-108) mmHg ABG HCO3 (21-25) mmol/L ABG Total CO2 (19-24) mmol/L ABG O2 Saturation (94-97) % Hemoglobin (11.4-16.0) gm/dL Chloride (98-107) mmol/L Carbon Dioxide (22-30) mmol/L BUN (7-17) mg/dL POC Glucose (mg/dL) 170 H (70-110) mg/dL Calcium (8.4-10.2) mg/dL C-Reactive Protein 14.8 H (<1.0) mg/dL Vitamin B12 1723.0 H (200.0-944.0) pg/mL TSH <0.015 L (0.465-4.680) mIU/L Free T4 2.94 H (0.78-2.19) ng/dL Urine Appearance (Clear) Urine Protein (Negative) Urine Blood (Negative) Urine RBC (0-5) /hpf Urine WBC (0-5) /hpf Urine Bacteria (None) /hpf Urine Mucus (None) /hpf 09/13/24 09/13/24 09/13/24 Range/Units 16:42 16:49 23:49 WBC (3.8-10.6) k/uL RBC (3.80-5.40) m/uL Hgb (11.4-16.0) gm/dL MCV (80.0-100.0) fL Plt Count (150-450) k/uL Neutrophils # (1.3-7.7) k/uL Lymphocytes # (1.0-4.8) k/uL ABG pO2 (83-108) mmHg ABG HCO3 (21-25) mmol/L ABG Total CO2 (19-24) mmol/L ABG O2 Saturation (94-97) % Hemoglobin (11.4-16.0) gm/dL Chloride (98-107) mmol/L Carbon Dioxide (22-30) mmol/L BUN (7-17) mg/dL POC Glucose (mg/dL) 160 H 128 H (70-110) mg/dL Calcium (8.4-10.2) mg/dL C-Reactive Protein (<1.0) mg/dL Vitamin B12 (200.0-944.0) pg/mL TSH (0.465-4.680) mIU/L Free T4 (0.78-2.19) ng/dL Urine Appearance Cloudy H (Clear) Urine Protein 1+ H (Negative) Urine Blood Large H (Negative) Urine RBC 143 H (0-5) /hpf Urine WBC 14 H (0-5) /hpf Urine Bacteria Occasional H (None) /hpf Urine Mucus Rare H (None) /hpf 09/14/24 09/14/24 09/14/24 Range/Units 04:28 04:28 05:35 WBC 11.5 H (3.8-10.6) k/uL RBC 3.29 L (3.80-5.40) m/uL Hgb 11.1 L (11.4-16.0) gm/dL MCV 105.5 H (80.0-100.0) fL Plt Count 136 L (150-450) k/uL Neutrophils # 10.3 H (1.3-7.7) k/uL Lymphocytes # 0.4 L (1.0-4.8) k/uL ABG pO2 109 H (83-108) mmHg ABG HCO3 30 H (21-25) mmol/L ABG Total CO2 31 H (19-24) mmol/L ABG O2 Saturation 98.7 H (94-97) % Hemoglobin 11.2 L (11.4-16.0) gm/dL Chloride 109 H (98-107) mmol/L Carbon Dioxide 34 H (22-30) mmol/L BUN 55 H (7-17) mg/dL POC Glucose (mg/dL) (70-110) mg/dL Calcium 7.7 L (8.4-10.2) mg/dL C-Reactive Protein (<1.0) mg/dL Vitamin B12 (200.0-944.0) pg/mL TSH (0.465-4.680) mIU/L Free T4 (0.78-2.19) ng/dL Urine Appearance (Clear) Urine Protein (Negative) Urine Blood (Negative) Urine RBC (0-5) /hpf Urine WBC (0-5) /hpf Urine Bacteria (None) /hpf Urine Mucus (None) /hpf Microbiology - Last 24 Hours (Table) 09/09/24 17:30 Blood Culture - Preliminary Blood Assessment and Plan Plan: Acute on chronic hypoxic respiratory failure secondary to a COPD exacerbation, systolic CHF exacerbation, influenza A. The patient required intubation and mechanical ventilatory support on 09/02/2024. The patient remains intubated on mechanical ventilator. Chest x-ray shows diffuse interstitial pattern and small left-sided pleural effusion. Adequate oxygenation and ventilation. Neurologically, the patient has diminished level of consciousness and the patient has been off sedation since 09/05/2024. CAT scan of the brain done on 09/07/2024 showed no acute abnormalities. EEG was done and the patient is showing diffuse encephalopathy and diffuse slowing. No seizure activity has been noted. Unable to wean and extubate because of her profound generalized wea kness and diminished level of consciousness. Acute influenza A, completed a course of Tamiflu Acute exacerbation of COPD, remains on bronchodilators Acute on chronic systolic congestive heart failure. The patient has impairment of the LV function with an ejection fraction of 35%, nonischemic cardiomyopathy with moderate degree of mitral regurgitation. Bilateral pneumonia, likely superinfection following influenza A infection and the patient has positive cultures with Streptococcus pneumonia and Klebsiella oxytoca. The patient remains on broad-spectrum antibiotics and the patient is currently off cefepime. Repeat sputum culture from 09/09/2024 was again positive for Klebsiella oxytoca. Leukocytosis, with further rise in the white cell count. The patient is currently on IV cefepime. White cell count remains elevated Atrial fibrillation with rapid ventricular response, the patient has received cardioversion on 09/07/2024 and the patient is back in normal sinus rhythm.The patient is currently on amiodarone 400 mg p.o. twice a day The patient is also on metoprolol 50 mg twice daily. Cardiac rhythm is sinus as stated. Hemodynamically stable and the patient is currently off pressors. Alcoholism Acute metabolic encephalopathy secondary to above. The patient remains to have diminished level of consciousness. The patient has been off sedation since 09/05/2024 and the patient had a follow-up CAT scan of the brain done on 09/07/2024 that showed no acute abnormalities. EEG showed encephalopathy and diffuse slowing. Level of consciousness is still impaired. Repeat CAT scan of the brain was done on 09/14/2024 and showed no acute intracranial process. There is remote left basal ganglia lacunar injury with some nonspecific white matter changes secondary to chronic microangiopathy and chronic sinus disease. Transaminitis, likely secondary to alcoholism Moderate mitral regurgitation Nonischemic cardiomyopathy, EF of 35% Hypertension Dyslipidemia Hypothyroidism, thyroid function tests were noted, free T4 is elevated Plan: Continue ventilator support, no changes for today Monitor mentation Consult anesthesia for lumbar puncture Wean off pressors and discontinue norepinephrine Cultures were recent Monitor fever pattern Levemir dose to 30 units for a tighter blood sugar control in addition to a sliding scale coverage. Hold anticoagulation in anticipation of possible PEG and trach insertion over the next 24 to 48 hours Neurology input is appreciated CAT scan of the brain was noted IV fluids are currently at KVO Monitor the white cell count Continue bronchodilators Stop the thyroid supplements for now and monitor the level within the next 24 to 48 hours Continue combination of amiodarone, metoprolol and anticoagulation will be placed on hold Continue vital HP for nutritional support We will continue to follow Condition remains quite critical and this evaluation was done in 32 minutes. Evaluation was done in the intensive care unit. Time with Patient: Greater than 30
--- NOTE | 2024-09-14 13:03 | P.PN ---
Subjective Progress Note Date: 09/14/24 No new complaints, still spiking low grade fevers. Discussed with pulmonology, neurology, will attempt LP. General: intubated HEENT: normocephalic, atraumatic, no tracheal deviation Respiratory: symmetric chest rise, no cyanosis, ventilator dependent CVS: perfusing all extremities, no distal gangrene, trace pitting edema GI: soft, ND : no SPT, no CVAT, stewart is present Neuro: wakes to voice, quadriparesis Hospital Course: Patient is a 74-year-old female with past medical history significant for COPD with chronic respiratory failure, CHF, atrial fibrillation on Coumadin, and hypertension presented for 1 week worsening of breathing as well as significant cough. Initially, treated for management of acute on chronic hypoxic respiratory failure secondary to COPD exacerbation, influenza A, acute HFrEF exacerbation. Cardiology consulted. Started on IV Lasix, Coumadin continued, TTE ordered. Severe LV systolic dysfunction with EF 35%, severe pulmonary hypertension. Added Farxiga to her current medical regimen. Pt became progressively dyspnea and hallucinations, warranting BiPAP. Encephalopathy was felt secondary to ETOH withdrawal, but pt became progressively obtunded and intubated on 09/02. Also went into A-Fib with RVR, successfully cardioverted on 09/03. Sedation holidays were failed on 09/05, and after reattempt at holiday on 09/06, pt was noted the following day to be non-responsive, no withdrawal to pain, verbal stimuli, and had horizontal nystagmus. Brain CT showed no evidence of acute intracranial pathology. Neurology was consulted on 09/08 who felt that neurological changes were secondary to toxic metabolic encephalopathy. EEG completed same day confirmed findings of generalized background slowing c/w metabolic encephalopathy vs diffuse structural brain abnormality. Considerations were made for LP and Eliquis was held. Pt continued spiking fevers again starting on 09/09, leukocytosis worsened, repeat blood cultures were ordered, and started patient on broad-spectrum antibiotics with vancomycin and cefepime. Sputum cultures ultimately grew klebsiella and strep pneumo. Between 09/10-09/13, patient did note having modest improvement in neurological exam, but still extremely quadriparetic. Assessment and Plan: Septic Shock with Acute on chronic hypoxic respiratory failure multifactorial, Influenza A Klebsiella and Strep Pneumo Community Acquired Pneumonia Acute COPD exacerbation, -Pulmonology consulted, following -IV Solu-Medrol 40 mg every 12 hours discontinued on 09/11. -Cefepime discontinued secondary to possible cefepime neurotoxicity; vancomycin initiated with ID consultation -Continue with DuoNeb Q4H scheduled and Q2N PRN. -Continue Pulmicort 1 mg INH BID and Performist 20 mcg INH BID. Acute on chronic HFrEF requiring intubation Severe pulmonary hypertension, WHO class II Moderate mitral regurgitation -Laisx 20 IV twice daily on hold for now; s/p acetazolamide 250mg BID on 09/13 -Aldactone, Losartan, Farxiga on hold., Started on Entresto -strict I/Os, daily weights Acute toxic metabolic encephalopathy Quadriparesis History of alcohol abuse -Neurology on board, appreciate recs -CT brain for unresponsiveness was negative -EEG with moderate to severe background slowing -LP challening in pt with this body habitus, consideration of anesthesia performing -repeat stat head CT 09/13 PM was negative -IV thiamine 100 daily Atrial fibrillation with RVR and Supratherapeutic INR Status post cardioversion 09/03. -Cardiology on board. -Started on amiodarone 400 mg p.o. twice daily, dose decreased to 200 mg twice daily 09/10; r/t hyperthyroidism below - AIT 1 and 2 are very unlikely given timing -Continue Entresto -Continue Metoprolol 50 mg PO BID. -Started on Eliquis 5 twice daily, currently on hold in anticipation of LP Hyperthyroidism -discontinue IV levothyroxine, repeat labs in 48-72 hours, if improved, can resume PO levothyroxine at 75% dose -AM cortisol ordered DVT prophylaxis: on hold for LP Anticipated discharge pending Clinical course Objective - Vital Signs Vital signs: Vital Signs Temp 98.2 F 09/14/24 04:00 Pulse 94 09/14/24 12:48 Resp 20 09/14/24 07:00 BP 104/51 09/14/24 07:00 Pulse Ox 97 09/14/24 07:00 FiO2 40 09/14/24 12:39 Intake & Output 09/13/24 09/14/24 09/14/24 18:59 06:59 18:59 Intake Total 8887.274 2261.670 428 Output Total 970 1030 75 Balance 277.534 288.670 353 Weight 74.9 kg Intake: IV 498 276 373 0.9 3cc/ hr a-line 33 36 3 0.9 at KVO 115 240 20 Cefepime 2 gm In Sodium 100 Chloride 0.9% 100 ml @ 25 mls/hr IVPB Q8HR [facility] Rx# :[id number] Magnesium Sulfate-D5w Pmx 100 1 gm In Dextrose/Water 1 100ml.bag @ 100 mls/hr IVPB ONCE ONE Rx#: [id number] Vancomycin 1,250 mg In 250 250 Sodium Chloride 0.9% 250 ml @ 125 mls/hr IVPB Q16H [facility] Rx#:[id number] Intake, IV Titration 54.534 322.670 Amount Dexmedetomidine/0.9% NaCl 1.058 155.71 (Pmx) 400 mcg In Empty Bag 1 bag @ 0.2 MCG/KG/HR 3.733 mls/hr IV .Q24H [facility] Rx#:[id number] Norepinephrine 8 mg In 53.476 166.960 Sodium Chloride 0.9% 250 ml @ 0.03 MCG/KG/MIN 4. 261 mls/hr IV .Q24H [facility] Rx#:[id number] Tube Feeding 605 660 55 Other 90 60 Output: Urine 970 1030 75 Other: Voiding Method Indwelling Catheter Indwelling Catheter # Bowel Movements 0 0 ABP, PAP, CO, CI - Last Documented Arterial Blood Pressure 132/50 - Labs CBC & Chem 7: 09/14/24 04:28 09/14/24 04:28 Labs: Abnormal Lab Results - Last 24 Hours (Table) 09/13/24 09/13/24 09/13/24 Range/Units 14:40 14:40 16:42 WBC (3.8-10.6) k/uL RBC (3.80-5.40) m/uL Hgb (11.4-16.0) gm/dL MCV (80.0-100.0) fL Plt Count (150-450) k/uL Neutrophils # (1.3-7.7) k/uL Lymphocytes # (1.0-4.8) k/uL ABG pO2 (83-108) mmHg ABG HCO3 (21-25) mmol/L ABG Total CO2 (19-24) mmol/L ABG O2 Saturation (94-97) % Hemoglobin (11.4-16.0) gm/dL Chloride (98-107) mmol/L Carbon Dioxide (22-30) mmol/L BUN (7-17) mg/dL POC Glucose (mg/dL) (70-110) mg/dL Calcium (8.4-10.2) mg/dL AST (14-36) U/L ALT (4-34) U/L C-Reactive Protein 14.8 H (<1.0) mg/dL Vitamin B12 1723.0 H (200.0-944.0) pg/mL TSH <0.015 L (0.465-4.680) mIU/L Free T4 2.94 H (0.78-2.19) ng/dL Urine Appearance Cloudy H (Clear) Urine Protein 1+ H (Negative) Urine Blood Large H (Negative) Urine RBC 143 H (0-5) /hpf Urine WBC 14 H (0-5) /hpf Urine Bacteria Occasional H (None) /hpf Urine Mucus Rare H (None) /hpf 09/13/24 09/13/24 09/14/24 Range/Units 16:49 23:49 04:28 WBC 11.5 H (3.8-10.6) k/uL RBC 3.29 L (3.80-5.40) m/uL Hgb 11.1 L (11.4-16.0) gm/dL MCV 105.5 H (80.0-100.0) fL Plt Count 136 L (150-450) k/uL Neutrophils # 10.3 H (1.3-7.7) k/uL Lymphocytes # 0.4 L (1.0-4.8) k/uL ABG pO2 (83-108) mmHg ABG HCO3 (21-25) mmol/L ABG Total CO2 (19-24) mmol/L ABG O2 Saturation (94-97) % Hemoglobin (11.4-16.0) gm/dL Chloride (98-107) mmol/L Carbon Dioxide (22-30) mmol/L BUN (7-17) mg/dL POC Glucose (mg/dL) 160 H 128 H (70-110) mg/dL Calcium (8.4-10.2) mg/dL AST (14-36) U/L ALT (4-34) U/L C-Reactive Protein (<1.0) mg/dL Vitamin B12 (200.0-944.0) pg/mL TSH (0.465-4.680) mIU/L Free T4 (0.78-2.19) ng/dL Urine Appearance (Clear) Urine Protein (Negative) Urine Blood (Negative) Urine RBC (0-5) /hpf Urine WBC (0-5) /hpf Urine Bacteria (None) /hpf Urine Mucus (None) /hpf 09/14/24 09/14/24 09/14/24 Range/Units 04:28 04:28 05:35 WBC (3.8-10.6) k/uL RBC (3.80-5.40) m/uL Hgb (11.4-16.0) gm/dL MCV (80.0-100.0) fL Plt Count (150-450) k/uL Neutrophils # (1.3-7.7) k/uL Lymphocytes # (1.0-4.8) k/uL ABG pO2 109 H (83-108) mmHg ABG HCO3 30 H (21-25) mmol/L ABG Total CO2 31 H (19-24) mmol/L ABG O2 Saturation 98.7 H (94-97) % Hemoglobin 11.2 L (11.4-16.0) gm/dL Chloride 109 H (98-107) mmol/L Carbon Dioxide 34 H (22-30) mmol/L BUN 55 H (7-17) mg/dL POC Glucose (mg/dL) (70-110) mg/dL Calcium 7.7 L (8.4-10.2) mg/dL AST 43 H (14-36) U/L ALT 94 H (4-34) U/L C-Reactive Protein (<1.0) mg/dL Vitamin B12 (200.0-944.0) pg/mL TSH (0.465-4.680) mIU/L Free T4 (0.78-2.19) ng/dL Urine Appearance (Clear) Urine Protein (Negative) Urine Blood (Negative) Urine RBC (0-5) /hpf Urine WBC (0-5) /hpf Urine Bacteria (None) /hpf Urine Mucus (None) /hpf
[2024-09-14 13:25] LABS: Appearance,CSF Blood Tinged; CSF Tube Number 4; CSF Tube Volume 1.5
[2024-09-14 13:26] LABS: Red Blood Cell,CSF 4444 u/L (0-10)
[2024-09-14 13:44] LABS: Nucleated Cells, CSF 16 u/L (0-5)
[2024-09-14 13:46] LABS: Glucose,Whole Blood 100 mg/dL (70-110)
[2024-09-14 13:47] LABS: Diff, Total Cells Cnt, CSF 100; Mononuclear WBC,CSF 4 %; Polynuclear WBC,CSF 96 %
[2024-09-14 13:48] LABS: Red Blood Cell, CSF Crenated 2 %; Red Blood Cell, CSF Fresh 98 %
--- NOTE | 2024-09-14 14:43 | P.PCN ---
Date of Procedure: 09/14/24 Procedure(s) Performed: Preoperative diagnosis: 1-altered mental status Post operative diagnoses:1-altered mental status Procedure= lumbar puncture Anesthesia= adequate 1% 3 mL only Condition: stable Complication: none. Description of the procedure: consent signed. In the intensive care unite, lateral position, back prepped with chlorhexidine 3 times been local infiltration of the skin and subcutaneous tissue with lidocaine 1% 3 mL for skin and subcu interstitial frustrations at L4 5 levels then 22-gauge Quincke-type needle advanced slowly at L4- 5 interlaminar space there was positive cerebrospinal fluid which was clear, no heme, no paresthesia ,total of 8 ML of clear cerebrospinal fluid collected in 4 different tubes 2-2-1/2 mL in each, then the needle removed and a Band-Aid applied and patient tolerated the procedure well without any complications.
--- NOTE | 2024-09-14 15:30 | P.PN ---
Subjective Progress Note Date: 09/14/24 Principal diagnosis: Reason for follow-up fever pneumonia Patient is a 74-year-old female with a past medical history significant for hypertension COPD heart failure, atrial fibrillation presenting to the hospital on 08/28/2024 for evaluation of increasing shortness of breath, patient did require intubation during this hospital stay and sputum culture have been positive initially for strep pneumo subsequently Klebsiella infectious he consulted because of persistent fever. On today's evaluation that is 09/14/2024, Patient did have resolution of her fever and is afebrile this morning patient remains to be intubated on the vent FiO2 is currently 40% patient is hemodynamically stable and is off the pressor support today no other changes reported. Patient white count is down to 11.5 creatinine 0.71 patient did have an LP CSF and was traumatic tissue 16 WBC but 4444 RBC glucose and protein has been normal Objective - Vital Signs Vital signs: Vital Signs Temp 98.2 F 09/14/24 04:00 Pulse 65 09/14/24 12:37 Resp 20 09/14/24 07:00 BP 104/51 09/14/24 07:00 Pulse Ox 97 09/14/24 07:00 FiO2 40 09/14/24 09:09 Intake & Output 09/13/24 09/14/24 09/14/24 18:59 06:59 18:59 Intake Total 0502.088 7022.670 428 Output Total 970 1030 75 Balance 277.534 288.670 353 Weight 74.9 kg Intake: IV 498 276 373 0.9 3cc/ hr a-line 33 36 3 0.9 at KVO 115 240 20 Cefepime 2 gm In Sodium 100 Chloride 0.9% 100 ml @ 25 mls/hr IVPB Q8HR [facility] Rx# :[id number] Magnesium Sulfate-D5w Pmx 100 1 gm In Dextrose/Water 1 100ml.bag @ 100 mls/hr IVPB ONCE ONE Rx#: [id number] Vancomycin 1,250 mg In 250 250 Sodium Chloride 0.9% 250 ml @ 125 mls/hr IVPB Q16H [facility] Rx#:[id number] Intake, IV Titration 54.534 322.670 Amount Dexmedetomidine/0.9% NaCl 1.058 155.71 (Pmx) 400 mcg In Empty Bag 1 bag @ 0.2 MCG/KG/HR 3.733 mls/hr IV .Q24H [facility] Rx#:[id number] Norepinephrine 8 mg In 53.476 166.960 Sodium Chloride 0.9% 250 ml @ 0.03 MCG/KG/MIN 4. 261 mls/hr IV .Q24H [facility] Rx#:[id number] Tube Feeding 605 660 55 Other 90 60 Output: Urine 970 1030 75 Other: Voiding Method Indwelling Catheter Indwelling Catheter # Bowel Movements 0 0 ABP, PAP, CO, CI - Last Documented Arterial Blood Pressure 132/50 - Exam GENERAL DESCRIPTION: An elderly female intubated on the vent RESPIRATORY SYSTEM: Unlabored breathing , decreased breath sounds at bases HEART: S1 S2 regular rate and rhythm , ABDOMEN: Soft , no tenderness EXTREMITIES: No edema feet - Labs CBC & Chem 7: 09/14/24 04:28 09/14/24 04:28 Labs: Abnormal Lab Results - Last 24 Hours (Table) 09/13/24 09/13/24 09/13/24 Range/Units 14:40 14:40 16:42 WBC (3.8-10.6) k/uL RBC (3.80-5.40) m/uL Hgb (11.4-16.0) gm/dL MCV (80.0-100.0) fL Plt Count (150-450) k/uL Neutrophils # (1.3-7.7) k/uL Lymphocytes # (1.0-4.8) k/uL ABG pO2 (83-108) mmHg ABG HCO3 (21-25) mmol/L ABG Total CO2 (19-24) mmol/L ABG O2 Saturation (94-97) % Hemoglobin (11.4-16.0) gm/dL Chloride (98-107) mmol/L Carbon Dioxide (22-30) mmol/L BUN (7-17) mg/dL POC Glucose (mg/dL) (70-110) mg/dL Calcium (8.4-10.2) mg/dL AST (14-36) U/L ALT (4-34) U/L C-Reactive Protein 14.8 H (<1.0) mg/dL Vitamin B12 1723.0 H (200.0-944.0) pg/mL TSH <0.015 L (0.465-4.680) mIU/L Free T4 2.94 H (0.78-2.19) ng/dL Urine Appearance Cloudy H (Clear) Urine Protein 1+ H (Negative) Urine Blood Large H (Negative) Urine RBC 143 H (0-5) /hpf Urine WBC 14 H (0-5) /hpf Urine Bacteria Occasional H (None) /hpf Urine Mucus Rare H (None) /hpf 09/13/24 09/13/24 09/14/24 Range/Units 16:49 23:49 04:28 WBC 11.5 H (3.8-10.6) k/uL RBC 3.29 L (3.80-5.40) m/uL Hgb 11.1 L (11.4-16.0) gm/dL MCV 105.5 H (80.0-100.0) fL Plt Count 136 L (150-450) k/uL Neutrophils # 10.3 H (1.3-7.7) k/uL Lymphocytes # 0.4 L (1.0-4.8) k/uL ABG pO2 (83-108) mmHg ABG HCO3 (21-25) mmol/L ABG Total CO2 (19-24) mmol/L ABG O2 Saturation (94-97) % Hemoglobin (11.4-16.0) gm/dL Chloride (98-107) mmol/L Carbon Dioxide (22-30) mmol/L BUN (7-17) mg/dL POC Glucose (mg/dL) 160 H 128 H (70-110) mg/dL Calcium (8.4-10.2) mg/dL AST (14-36) U/L ALT (4-34) U/L C-Reactive Protein (<1.0) mg/dL Vitamin B12 (200.0-944.0) pg/mL TSH (0.465-4.680) mIU/L Free T4 (0.78-2.19) ng/dL Urine Appearance (Clear) Urine Protein (Negative) Urine Blood (Negative) Urine RBC (0-5) /hpf Urine WBC (0-5) /hpf Urine Bacteria (None) /hpf Urine Mucus (None) /hpf 09/14/24 09/14/24 09/14/24 Range/Units 04:28 04:28 05:35 WBC (3.8-10.6) k/uL RBC (3.80-5.40) m/uL Hgb (11.4-16.0) gm/dL MCV (80.0-100.0) fL Plt Count (150-450) k/uL Neutrophils # (1.3-7.7) k/uL Lymphocytes # (1.0-4.8) k/uL ABG pO2 109 H (83-108) mmHg ABG HCO3 30 H (21-25) mmol/L ABG Total CO2 31 H (19-24) mmol/L ABG O2 Saturation 98.7 H (94-97) % Hemoglobin 11.2 L (11.4-16.0) gm/dL Chloride 109 H (98-107) mmol/L Carbon Dioxide 34 H (22-30) mmol/L BUN 55 H (7-17) mg/dL POC Glucose (mg/dL) (70-110) mg/dL Calcium 7.7 L (8.4-10.2) mg/dL AST 43 H (14-36) U/L ALT 94 H (4-34) U/L C-Reactive Protein (<1.0) mg/dL Vitamin B12 (200.0-944.0) pg/mL TSH (0.465-4.680) mIU/L Free T4 (0.78-2.19) ng/dL Urine Appearance (Clear) Urine Protein (Negative) Urine Blood (Negative) Urine RBC (0-5) /hpf Urine WBC (0-5) /hpf Urine Bacteria (None) /hpf Urine Mucus (None) /hpf Assessment and Plan (1) Sepsis Current Visit: Yes Status: Acute Code(s): A41.9 - SEPSIS, UNSPECIFIED ORGANISM SNOMED Code(s): 77236618 (2) Pneumonia Current Visit: No Status: Acute Code(s): J18.9 - PNEUMONIA, UNSPECIFIED OR GANISM SNOMED Code(s): 565258413 Plan: 1patient with sepsis in this patient who did have fever elevated white count in this patient with acute respiratory failure requiring intubation and has been the hospital for almost 16 days before initial consultation source of the persistent fever could be related to the multiple lines the patient has including supplement as to outlines and will need to cover for the gram-positive skin yuliya to be the likely pathogen 2-blood culture has been obtained results are currently pending 3-patient did have resolution of her fever white count down with addition of vancomycin pharmacy to dose to continue will add Rocephin for gram-negative coverage as cefepime has been discontinued Dictation was produced using [employer] dictation software. please excuse any grammatical, word or spelling errors. Time with Patient: Less than 30
[2024-09-14 16:46] LABS: Glucose,Whole Blood 142 mg/dL (70-110)
[2024-09-14 20:12] LABS: Glucose,Whole Blood 92 mg/dL (70-110)
[2024-09-14 23:05] LABS: Glucose,Whole Blood 130 mg/dL (70-110)
[2024-09-15 05:24] LABS: ABG Base Excess 4.3 mmol/L; ABG HCO3 29 mmol/L (21-25); ABG Oxygen Saturation 98.2 % (94-97); ABG PCO2 41 mmHg (35-45); ABG PH 7.45 (7.35-7.45); ABG PO2 100 mmHg (83-108); ABG TCO2 30 mmol/L (19-24)
[2024-09-15 05:25] LABS: Allen Test Performed? No
[2024-09-15 05:44] LABS: HCT 33.9 % (34.0-46.0); HGB 10.9 gm/dL (11.4-16.0); MCH 33.9 pg (25.0-35.0); MCV 105.8 fL (80.0-100.0); Macrocytosis Moderate; Mean Platelet Volume 11.5; Platelet Count 123 k/uL (150-450); RDW 14.5 % (11.5-15.5); WBC 10.5 k/uL (3.8-10.6)
[2024-09-15 05:49] LABS: African American GFR (CKD) >90 (>60 ml/min/1.73 sqM); Anion Gap 4 mmol/L; Blood Urea Nitrogen 52 mg/dL (7-17); Carbon Dioxide 29 mmol/L (22-30); Chloride 110 mmol/L (98-107); Glucose 128 mg/dL (74-99); Non-African American GFR(CKD) 90 (>60 ml/min/1.73 sqM); Potassium 3.7 mmol/L (3.5-5.1); Sodium 143 mmol/L (137-145)
[2024-09-15 05:59] LABS: Glucose,Whole Blood 139 mg/dL (70-110)
[2024-09-15] MEDS: POTASSIUM CHLORIDE 10 MEQ in WATER FOR INJECTION 1 100ML.BAG IVPB SCH (06:01)
--- NOTE | 2024-09-15 08:06 | XR ---
EXAMINATION TYPE: XR chest 1V portable DATE OF EXAM: 09/15/2024 5:33 AM COMPARISON: 09/14/2024 CLINICAL INDICATION: Female, 74 years old with history of intubated, difficulty breathing TECHNIQUE: XR chest 1V portable view(s) obtained. FINDINGS: The heart size is normal. The pulmonary vasculature is somewhat prominent. Small right pleural effusion is present. Minimal left pleural effusion is present. Retrocardiac infil trate may be present. Endotracheal tube tip is 4.8 cm above the charles. Nasogastric tube transverses the thorax tip in the left upper quadrant of the abdomen. Left central venous catheter tip is within the proximal right atr ium IMPRESSION: 1. Correlate for volume overload. 2. Mild bibasilar infiltrates. Correlate for atelectasis. This is greater on left. 3. Small bilateral pleural effusions [facility], , 09/15/2024 8:04 AM
[2024-09-15 10:54] VITALS: BMI 30.6
--- NOTE | 2024-09-15 11:30 | P.PN ---
Subjective Progress Note Date: 09/15/24 No new complaints, s/p LP yesterday. General: intubated HEENT: normocephalic, atraumatic, no tracheal deviation Respiratory: symmetric chest rise, no cyanosis, ventilator dependent CVS: perfusing all extremities, no distal gangrene, trace pitting edema GI: soft, ND : no SPT, no CVAT, stewart is present Neuro: wakes to voice, quadriparesis Hospital Course: Patient is a 74-year-old female with past medical history significant for COPD with chronic respiratory failure, CHF, atrial fibrillation on Coumadin, and hypertension presented for 1 week worsening of breathing as well as significant cough. Initially, treated for management of acute on chronic hypoxic respiratory failure secondary to COPD exacerbation, influenza A, acute HFrEF exacerbation. Cardiology consulted. Started on IV Lasix, Coumadin continued, TTE ordered. Severe LV systolic dysfunction with EF 35%, severe pulmonary hypertension. Added Farxiga to her current medical regimen. Pt became progressively dyspnea and hallucinations, warranting BiPAP. Encephalopathy was felt secondary to ETOH withdrawal, but pt became progressively obtunded and intubated on 09/02. Also went into A-Fib with RVR, successfully cardioverted on 09/03. Sedation holidays were failed on 09/05, and after reattempt at holiday on 09/06, pt was noted the following day to be non-responsive, no withdrawal to pain, verbal stimuli, and had horizontal nystagmus. Brain CT showed no evidence of acute intracranial pathology. Neurology was consulted on 09/08 who felt that neurological changes were secondary to toxic metabolic encephalopathy. EEG co mpleted same day confirmed findings of generalized background slowing c/w metabolic encephalopathy vs diffuse structural brain abnormality. Considerations were made for LP and Eliquis was held. Pt continued spiking fevers again starting on 09/09, leukocytosis worsened, repeat blood cultures were ordered, and started patient on broad-spectrum antibiotics with vancomycin and cefepime. Sputum cultures ultimately grew klebsiella and strep pneumo. Between 09/10-09/13, patient did note having modest improvement in neurological exam, but still extremely quadriparetic. Assessment and Plan: Septic Shock with Acute on chronic hypoxic respiratory failure multifactorial, Influenza A Klebsiella and Strep Pneumo Community Acquired Pneumonia Acute COPD exacerbation, -Pulmonology consulted, following -IV Solu-Medrol 40 mg every 12 hours discontinued on 09/11. -Cefepime discontinued secondary to possible cefepime neurotoxicity; vancomycin initiated with ID consultation; ceftriaxone initiated with ID consultation -Continue with DuoNeb Q4H scheduled and Q2N PRN. -Continue Pulmicort 1 mg INH BID and Performist 20 mcg INH BID. 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 -Cardiology on board. -Started on amiodarone 400 mg p.o. twice daily, dose decreased to 200 mg twice daily 09/10; r/t hyperthyroidism below - AIT 1 and 2 are very unlikely given timing -Continue Entresto -Continue Metoprolol 50 mg PO BID. -Started on Eliquis 5 twice daily, currently on hold in anticipation of LP Hyperthyroidism -discontinue IV levothyroxine, repeat labs in tomorrow, if improved, can resume PO levothyroxine at 75% dose -FT3 is low; this could be r/t critical systemic illness and these labs are difficult to interpret in this pt - repeat tomorrow as above, and likely resume levothyroxine. -AM cortisol ordered, and normal DVT prophylaxis: heparin TID Anticipated discharge pending Clinical course Objective - Vital Signs Vital signs: Vital Signs Temp 97.9 F 09/15/24 08:00 Pulse 63 09/15/24 11:00 Resp 20 09/15/24 11:00 BP 110/47 09/15/24 11:00 Pulse Ox 97 09/15/24 11:00 FiO2 40 09/15/24 08:18 Intake & Output 09/14/24 09/15/24 09/15/24 18:59 06:59 18:59 Intake Total 1416.392 626.047 260.340 Output Total 860 815 300 Balance 556.392 -188.953 -39.660 Weight 78.4 kg 78.4 kg Intake: IV 466 136 172 .9NS 60 0.9 3cc/ hr a-line 36 36 12 0.9 at KVO 80 Magnesium Sulfate-D5w Pmx 100 1 gm In Dextrose/Water 1 100ml.bag @ 100 mls/hr IVPB ONCE ONE Rx#: [id number] Potassium Chloride 10 meq 100 100 In Water For Injection 1 100ml.bag @ 100 mls/hr IVPB Q1H [facility] Rx#: [id number] Vancomycin 1,250 mg In 250 Sodium Chloride 0.9% 250 ml @ 125 mls/hr IVPB Q16H [facility] Rx#:[id number] Intake, IV Titration 200.392 185.047 88.340 Amount Dexmedetomidine/0.9% NaCl 188.744 185.047 88.340 (Pmx) 400 mcg In Empty Bag 1 bag @ 0.2 MCG/KG/HR 3.733 mls/hr IV .Q24H [facility] Rx#:[id number] Norepinephrine 8 mg In 11.648 Sodium Chloride 0.9% 250 ml @ 0.03 MCG/KG/MIN 4. 261 mls/hr IV .Q24H [facility] Rx#:[id number] Tube Feeding 660 275 Other 90 30 Output: Urine 860 815 300 Other: Voiding Method Indwelling Catheter Indwelling Catheter Indwelling Catheter # Bowel Movements 0 0 ABP, PAP, CO, CI - Last Documented Arterial Blood Pressure 127/43 - Labs CBC & Chem 7: 09/15/24 05:05 09/15/24 05:05 Labs: Abnormal Lab Results - Last 24 Hours (Table) 09/14/24 09/14/24 09/14/24 Range/Units 04:28 11:50 13:41 RBC (3.80-5.40) m/uL Hgb (11.4-16.0) gm/dL Hct (34.0-46.0) % MCV (80.0-100.0) fL Plt Count (150-450) k/uL ABG HCO3 (21-25) mmol/L ABG Total CO2 (19-24) mmol/L ABG O2 Saturation (94-97) % Chloride (98-107) mmol/L BUN (7-17) mg/dL Glucose (74-99) mg/dL POC Glucose (mg/dL) (70-110) mg/dL Calcium (8.4-10.2) mg/dL Ammonia 34 H (<30) umol/L Free T3 pg/mL 0.90 L (2.30-4.20) pg/mL CSF RBC 4444 H (0-10) u/L CSF Tot Nucleated Cells 16 H* (0-5) u/L 09/14/24 09/14/24 09/15/24 Range/Units 16:43 23:03 05:05 RBC 3.20 L (3.80-5.40) m/uL Hgb 10.9 L (11.4-16.0) gm/dL Hct 33.9 L (34.0-46.0) % MCV 105.8 H (80.0-100.0) fL Plt Count 123 L (150-450) k/uL ABG HCO3 (21-25) mmol/L ABG Total CO2 (19-24) mmol/L ABG O2 Saturation (94-97) % Chloride (98-107) mmol/L BUN (7-17) mg/dL Glucose (74-99) mg/dL POC Glucose (mg/dL) 142 H 130 H (70-110) mg/dL Calcium (8.4-10.2) mg/dL Ammonia (<30) umol/L Free T3 pg/mL (2.30-4.20) pg/mL CSF RBC (0-10) u/L CSF Tot Nucleated Cells (0-5) u/L 09/15/24 09/15/24 09/15/24 Range/Units 05:05 05:16 05:58 RBC (3.80-5.40) m/uL Hgb (11.4-16.0) gm/dL Hct (34.0-46.0) % MCV (80.0-100.0) fL Plt Count (150-450) k/uL ABG HCO3 29 H (21-25) mmol/L ABG Total CO2 30 H (19-24) mmol/L ABG O2 Saturation 98.2 H (94-97) % Chloride 110 H (98-107) mmol/L BUN 52 H (7-17) mg/dL Glucose 128 H (74-99) mg/dL POC Glucose (mg/dL) 139 H (70-110) mg/dL Calcium 8.0 L (8.4-10.2) mg/dL Ammonia (<30) umol/L Free T3 pg/mL (2.30-4.20) pg/mL CSF RBC (0-10) u/L CSF Tot Nucleated Cells (0-5) u/L Microbiology - Last 24 Hours (Table) 09/13/24 16:42 Urine Culture - Final Urine,Voided 09/14/24 11:50 CSF Gram Stain - Preliminary Cerebral Spinal Fluid 09/09/24 17:30 Blood Culture - Final Blood 09/13/24 14:40 Blood Culture - Preliminary Blood
[2024-09-15 11:59] LABS: Glucose,Whole Blood 127 mg/dL (70-110)
[2024-09-15 12:59] LABS: HSV I IgG Interp Positive (Negative); HSV II IgG Interp Positive (Negative)
--- NOTE | 2024-09-15 13:33 | P.PN ---
Subjective Progress Note Date: 09/15/24 SURGICAL PROGRESS NOTE CHIEF COMPLAINT: Respiratory failure HISTORY OF PRESENT ILLNESS: Patient remains in the ICU intubated and on mechanical ventilation. Afebrile. Vital stable. WBC 10.5 PHYSICAL EXAM: VITAL SIGNS: Reviewed. GENERAL: Well-developed in no acute distress. HEENT: No sclera icterus. Extraocular movements grossly intact. Moist buccal mucosa. Head is atraumatic, normocephalic. ABDOMEN: Soft. Nondistended. Nontender. NEUROLOGIC: Alert and oriented. Cranial nerves II through XII grossly intact. ASSESSMENT: 1. Acute hypoxic respiratory failure and unable to wean from the vent 2. Severe protein calorie malnutrition 3. COPD exacerbation, CHF exacerbation and influenza A PLAN: -Patient scheduled for tracheostomy and PEG tube placement today with Dr. Tobin -Tube feeds currently on hold Physician Manufacturing Associate note has been reviewed by physician. Signing provider agrees with the documented findings, assessment, and plan of care. Objective - Vital Signs Vital signs: Vital Signs Temp 97.9 F 09/15/24 12:00 Pulse 64 09/15/24 13:00 Resp 10 L 09/15/24 13:00 BP 112/48 09/15/24 13:00 Pulse Ox 97 09/15/24 13:00 FiO2 40 09/15/24 12:44 Intake & Output 09/14/24 09/15/24 09/15/24 18:59 06:59 18:59 Intake Total 1416.392 626.047 368.000 Output Total 860 815 435 Balance 556.392 -188.953 -67.000 Weight 78.4 kg 78.4 kg Intake: IV 466 136 218 .9NS 100 0.9 3cc/ hr a-line 36 36 18 0.9 at KVO 80 Magnesium Sulfate-D5w Pmx 100 1 gm In Dextrose/Water 1 100ml.bag @ 100 mls/hr IVPB ONCE ONE Rx#: [id number] Potassium Chloride 10 meq 100 100 In Water For Injection 1 100ml.bag @ 100 mls/hr IVPB Q1H [facility] Rx#: [id number] Vancomycin 1,250 mg In 250 Sodium Chloride 0.9% 250 ml @ 125 mls/hr IVPB Q16H [facility] Rx#:[id number] Intake, IV Titration 200.392 185.047 150.000 Amount Dexmedetomidine/0.9% NaCl 188.744 185.047 100.000 (Pmx) 400 mcg In Empty Bag 1 bag @ 0.2 MCG/KG/HR 3.733 mls/hr IV .Q24H [facility] Rx#:[id number] Norepinephrine 8 mg In 11.648 Sodium Chloride 0.9% 250 ml @ 0.03 MCG/KG/MIN 4. 261 mls/hr IV .Q24H [facility] Rx#:[id number] cefTRIAXone 2 gm In 50 Sodium Chloride 0.9% 50 ml @ 100 mls/hr IVPB Q24HR [facility] Rx#:[id number] Tube Feeding 660 275 0 Other 90 30 0 Output: Urine 860 815 435 Other: Voiding Method Indwelling Catheter Indwelling Catheter Indwelling Catheter # Bowel Movements 0 0 ABP, PAP, CO, CI - Last Documented Arterial Blood Pressure 82/66 - Labs CBC & Chem 7: 09/15/24 05:05 09/15/24 05:05 Labs: Abnormal Lab Results - Last 24 Hours (Table) 09/14/24 09/14/24 09/14/24 Range/Units 04:28 11:50 13:41 RBC (3.80-5.40) m/uL Hgb (11.4-16.0) gm/dL Hct (34.0-46.0) % MCV (80.0-100.0) fL Plt Count (150-450) k/uL ABG HCO3 (21-25) mmol/L ABG Total CO2 (19-24) mmol/L ABG O2 Saturation (94-97) % Chloride (98-107) mmol/L BUN (7-17) mg/dL Glucose (74-99) mg/dL POC Glucose (mg/dL) (70-110) mg/dL Calcium (8.4-10.2) mg/dL Ammonia 34 H (<30) umol/L Free T3 pg/mL 0.90 L (2.30-4.20) pg/mL CSF RBC 4444 H (0-10) u/L CSF Tot Nucleated Cells 16 H* (0-5) u/L HSV I IgG Interpret (Negative) HSV II IgG Interpret (Negative) VZV IgG Interpret (Negative) 09/14/24 09/14/24 09/14/24 Range/Units 16:43 20:32 23:03 RBC (3.80-5.40) m/uL Hgb (11.4-16.0) gm/dL Hct (34.0-46.0) % MCV (80.0-100.0) fL Plt Count (150-450) k/uL ABG HCO3 (21-25) mmol/L ABG Total CO2 (19-24) mmol/L ABG O2 Saturation (94-97) % Chloride (98-107) mmol/L BUN (7-17) mg/dL Glucose (74-99) mg/dL POC Glucose (mg/dL) 142 H 130 H (70-110) mg/dL Calcium (8.4-10.2) mg/dL Ammonia (<30) umol/L Free T3 pg/mL (2.30-4.20) pg/mL CSF RBC (0-10) u/L CSF Tot Nucleated Cells (0-5) u/L HSV I IgG Interpret Positive A (Negative) HSV II IgG Interpret Positive A (Negative) VZV IgG Interpret Positive A (Negative) 09/15/24 09/15/24 09/15/24 Range/Units 05:05 05:05 05:16 RBC 3.20 L (3.80-5.40) m/uL Hgb 10.9 L (11.4-16.0) gm/dL Hct 33.9 L (34.0-46.0) % MCV 105.8 H (80.0-100.0) fL Plt Count 123 L (150-450) k/uL ABG HCO3 29 H (21-25) mmol/L ABG Total CO2 30 H (19-24) mmol/L ABG O2 Saturation 98.2 H (94-97) % Chloride 110 H (98-107) mmol/L BUN 52 H (7-17) mg/dL Glucose 128 H (74-99) mg/dL POC Glucose (mg/dL) (70-110) mg/dL Calcium 8.0 L (8.4-10.2) mg/dL Ammonia (<30) umol/L Free T3 pg/mL (2.30-4.20) pg/mL CSF RBC (0-10) u/L CSF Tot Nucleated Cells (0-5) u/L HSV I IgG Interpret (Negative) HSV II IgG Interpret (Negative) VZV IgG Interpret (Negative) 09/15/24 09/15/24 Range/Units 05:58 11:57 RBC (3.80-5.40) m/uL Hgb (11.4-16.0) gm/dL Hct (34.0-46.0) % MCV (80.0-100.0) fL Plt Count (150-450) k/uL ABG HCO3 (21-25) mmol/L ABG Total CO2 (19-24) mmol/L ABG O2 Saturation (94-97) % Chloride (98-107) mmol/L BUN (7-17) mg/dL Glucose (74-99) mg/dL POC Glucose (mg/dL) 139 H 127 H (70-110) mg/dL Calcium (8.4-10.2) mg/dL Ammonia (<30) umol/L Free T3 pg/mL (2.30-4.20) pg/mL CSF RBC (0-10) u/L CSF Tot Nucleated Cells (0-5) u/L HSV I IgG Interpret (Negative) HSV II IgG Interpret (Negative) VZV IgG Interpret (Negative) Microbiology - Last 24 Hours (Table) 09/13/24 16:42 Urine Culture - Final Urine,Voided 09/14/24 11:50 CSF Gram Stain - Preliminary Cerebral Spinal Fluid 09/09/24 17:30 Blood Culture - Final Blood 09/13/24 14:40 Blood Culture - Preliminary Blood
--- NOTE | 2024-09-15 13:41 | P.PN ---
Subjective Progress Note Date: 08/26/24 I am seeing the patient for the first time during this admission. Please refer to Dr. Jauregui's notes for further details. The patient had Lumbar Puncture and is traumatic. Per the nurse, patient is following few simple commands to her. She squeezed her hand. The patient continues to be intubated on a ventilator. Objective - Vital Signs Vital signs: Vital Signs Temp 97.9 F 09/15/24 12:00 Pulse 64 09/15/24 13:00 Resp 10 L 09/15/24 13:00 BP 112/48 09/15/24 13:00 Pulse Ox 97 09/15/24 13:00 FiO2 40 09/15/24 12:44 Intake & Output 09/14/24 09/15/24 09/15/24 18:59 06:59 18:59 Intake Total 1416.392 626.047 368.000 Output Total 860 815 435 Balance 556.392 -188.953 -67.000 Weight 78.4 kg 78.4 kg Intake: IV 466 136 218 .9NS 100 0.9 3cc/ hr a-line 36 36 18 0.9 at KVO 80 Magnesium Sulfate-D5w Pmx 100 1 gm In Dextrose/Water 1 100ml.bag @ 100 mls/hr IVPB ONCE ONE Rx#: [id number] Potassium Chloride 10 meq 100 100 In Water For Injection 1 100ml.bag @ 100 mls/hr IVPB Q1H [facility] Rx#: [id number] Vancomycin 1,250 mg In 250 Sodium Chloride 0.9% 250 ml @ 125 mls/hr IVPB Q16H [facility] Rx#:[id number] Intake, IV Titration 200.392 185.047 150.000 Amount Dexmedetomidine/0.9% NaCl 188.744 185.047 100.000 (Pmx) 400 mcg In Empty Bag 1 bag @ 0.2 MCG/KG/HR 3.733 mls/hr IV .Q24H [facility] Rx#:[id number] Norepinephrine 8 mg In 11.648 Sodium Chloride 0.9% 250 ml @ 0.03 MCG/KG/MIN 4. 261 mls/hr IV .Q24H [facility] Rx#:[id number] cefTRIAXone 2 gm In 50 Sodium Chloride 0.9% 50 ml @ 100 mls/hr IVPB Q24HR [facility] Rx#:[id number] Tube Feeding 660 275 0 Other 90 30 0 Output: Urine 860 815 435 Other: Voiding Method Indwelling Catheter Indwelling Catheter Indwelling Catheter # Bowel Movements 0 0 ABP, PAP, CO, CI - Last Documented Arterial Blood Pressure 82/66 - Exam General: Lying in bed and does not appear in acute distress. Lung: Intubated on a ventilator. Neuro: Is drowsy. But is awakeable to voice. Open eyes to voice. Is following few simple commands such as wiggling toes and attempts to move uppers. - Labs CBC & Chem 7: 09/15/24 05:05 09/15/24 05:05 Labs: Abnormal Lab Results - Last 24 Hours (Table) 09/14/24 09/14/24 09/14/24 Range/Units 04:28 11:50 13:41 RBC (3.80-5.40) m/uL Hgb (11.4-16.0) gm/dL Hct (34.0-46.0) % MCV (80.0-100.0) fL Plt Count (150-450) k/uL ABG HCO3 (21-25) mmol/L ABG Total CO2 (19-24) mmol/L ABG O2 Saturation (94-97) % Chloride (98-107) mmol/L BUN (7-17) mg/dL Glucose (74-99) mg/dL POC Glucose (mg/dL) (70-110) mg/dL Calcium (8.4-10.2) mg/dL Ammonia 34 H (<30) umol/L Free T3 pg/mL 0.90 L (2.30-4.20) pg/mL CSF RBC 4444 H (0-10) u/L CSF Tot Nucleated Cells 16 H* (0-5) u/L HSV I IgG Interpret (Negative) HSV II IgG Interpret (Negative) VZV IgG Interpret (Negative) 09/14/24 09/14/24 09/14/24 Range/Units 16:43 20:32 23:03 RBC (3.80-5.40) m/uL Hgb (11.4-16.0) gm/dL Hct (34.0-46.0) % MCV (80.0-100.0) fL Plt Count (150-450) k/uL ABG HCO3 (21-25) mmol/L ABG Total CO2 (19-24) mmol/L ABG O2 Saturation (94-97) % Chloride (98-107) mmol/L BUN (7-17) mg/dL Glucose (74-99) mg/dL POC Glucose (mg/dL) 142 H 130 H (70-110) mg/dL Calcium (8.4-10.2) mg/dL Ammonia (<30) umol/L Free T3 pg/mL (2.30-4.20) pg/mL CSF RBC (0-10) u/L CSF Tot Nucleated Cells (0-5) u/L HSV I IgG Interpret Positive A (Negative) HSV II IgG Interpret Positive A (Negative) VZV IgG Interpret Positive A (Negative) 09/15/24 09/15/24 09/15/24 Range/Units 05:05 05:05 05:16 RBC 3.20 L (3.80-5.40) m/uL Hgb 10.9 L (11.4-16.0) gm/dL Hct 33.9 L (34.0-46.0) % MCV 105.8 H (80.0-100.0) fL Plt Count 123 L (150-450) k/uL ABG HCO3 29 H (21-25) mmol/L ABG Total CO2 30 H (19-24) mmol/L ABG O2 Saturation 98.2 H (94-97) % Chloride 110 H (98-107) mmol/L BUN 52 H (7-17) mg/dL Glucose 128 H (74-99) mg/dL POC Glucose (mg/dL) (70-110) mg/dL Calcium 8.0 L (8.4-10.2) mg/dL Ammonia (<30) umol/L Free T3 pg/mL (2.30-4.20) pg/mL CSF RBC (0-10) u/L CSF Tot Nucleated Cells (0-5) u/L HSV I IgG Interpret (Negative) HSV II IgG Interpret (Negative) VZV IgG Interpret (Negative) 09/15/24 09/15/24 Range/Units 05:58 11:57 RBC (3.80-5.40) m/uL Hgb (11.4-16.0) gm/dL Hct (34.0-46.0) % MCV (80.0-100.0) fL Plt Count (150-450) k/uL ABG HCO3 (21-25) mmol/L ABG Total CO2 (19-24) mmol/L ABG O2 Saturation (94-97) % Chloride (98-107) mmol/L BUN (7-17) mg/dL Glucose (74-99) mg/dL POC Glucose (mg/dL) 139 H 127 H (70-110) mg/dL Calcium (8.4-10.2) mg/dL Ammonia (<30) umol/L Free T3 pg/mL (2.30-4.20) pg/mL CSF RBC (0-10) u/L CSF Tot Nucleated Cells (0-5) u/L HSV I IgG Interpret (Negative) HSV II IgG Interpret (Negative) VZV IgG Interpret (Negative) Microbiology - Last 24 Hours (Table) 09/13/24 16:42 Urine Culture - Final Urine,Voided 09/14/24 11:50 CSF Gram Stain - Preliminary Cerebral Spinal Fluid 09/09/24 17:30 Blood Culture - Final Blood 09/13/24 14:40 Blood Culture - Preliminary Blood Assessment and Plan Assessment: Altered mental status, likely due to toxic metabolic encephalopathy. Reasons multifactorial as mentioned below Possible cephalosporin toxicity. CSF is traumatic and has close to 4500 rbc and 16 nucleated and with correction nucleated cells are normal--mentation is slightly improving, following simple commands. Elevated pCO2, 65, now 46. Acute kidney injury, improving Slightly elevated ammonia Ventilatory dependent respiratory failure COPD exacerbation CHF exacerbation Acute influenza A, completed course of Tamiflu Bilateral pneumonia, treated with cefepime Septic shock, due to Klebsiella pneumonia, resolved Leukocytosis Atrial fibrillation with rapid ventricular response History of alcoholism Macrocytosis Moderate MR Nonischemic cardiomyopathy with EF 35% Hypertension Hyperlipidemia Hypothyroidism Plan: * EEG 09/08/2024 was abnormal, due to background slowing of moderate to severe degree. This is suggestive of generalized cerebral dysfunction as can be seen with toxic metabolic encephalopathy or related to diffuse structural brain abnormality. Clinical correlation is recommended. No epileptiform activity was seen. * Repeat CT head, rule out any mass lesion/CVA. * B12 1723, folate 9.7, TSH <0.015, with free T4 elevated 2.94. We will defer to IM to address abnormal thyroid functions. * Ammonia level: 34. Is slightly elevated. Will defer management to primary/ICU team. * Repeat EEG: Preliminary is negative for seizure. * Consult ID for persistent altered mental status, and recurrent spiking temperature * Medical management as per IM, critical care and other specialties on board. The plan is discussed with the ICU nurse. Will follow-up sporadically. Time with Patient: Less than 30
--- NOTE | 2024-09-15 13:49 | P.PN ---
Subjective Progress Note Date: 09/15/24 Principal diagnosis: Acute hypoxic respiratory failure, multifactorial acute influenza A infection with acute exacerbation of COPD This is a 74-year-old female, familiar to my service, patient is known to have history of COPD, severe, history of chronic cor pulmonale, history of nonischemic cardiomyopathy and LV dysfunction as well as history of chronic atrial fibrillation maintained on Coumadin. Patient is also known to have history of moderate mitral regurgitation. Patient is normally on oxygen at 2 L/min, she is normally on diuretics, and she was very seen about a week ago in my office with worsening swelling of her lower extremities, and patient was placed on Aldactone in addition to her Lasix. Her leg swelling improved, however patient came into the ER on 08/28/2024, came in mostly with worsening shortness of breath, cough, wheezing, apparently when she was brought in by EMS she was found to be in tripod position and she was breathing quite heavy. Patient was placed on BiPAP, that seemed to improve her pulmonary status significantly on BiPAP. In the ER, patient was noted to have positive screening for acute influenza A. Last night I was notified about this patient about her shortness of breath and being BiPAP dependent, patient is known to have history of alcohol drinking, and there was also a concern about the patient going into alcohol withdrawal. Patient required some Ativan, admitted to the ICU for close monitoring. I was asked to see her in consultation. In addition to her COPD, patient had positive screening for influenza A. Today I saw the patient in the ICU, she is still on BiPAP 12/5/40%, patient is receiving Lasix, she is also on Aldactone, patient is on Tamiflu, and she is on her usual bronchodilators and on Solu-Medrol. WBC count is 11.9 hemoglobin 12.3 INR is 3.1 electrolytes are normal renal profile is normal troponin is less than 0.012 Evaluated today on 08/31/2024, patient remains in the ICU, patient is on 4 L nasal cannula, last night she was on BiPAP 12/5/40%, patient remains on bronchodilators, Lasix, Coumadin, and she is also on doxycycline. Baseline FEV1 from my office chart is 42% at best. Clearly the patient has severe underlying COPD. Patient is now on nasal cannula, had to be on BiPAP yesterday. Chest x- ray today is suggestive of interstitial edema, underlying pneumonia is felt to be less likely but not entirely ruled out. WBC count is 11.4 hemoglobin is 14.3 INR is 3.3 electrolytes are normal bicarb is 4 0 BUN is 27 creatinine 0.66 On 09/12/2024, the patient is being seen for a follow-up. Some limited improvement in level of consciousness. She is opening her eyes and responding to simple questions. Nevertheless, profoundly weak, unable to move her extremities yet. She remains of sedation for more than 4 days. Noted the patient was intubated on 09/02/2024. She is on assist-control mode of mechanical ventilation at rate of 20, tidal volume of 400, FiO2 40% with a PEEP of 5. Blo od gas showed a pH of 7.54 with a pCO2 of 44 and pO2 of 98. Noted the patient has been off propofol since 09/09/2024. Fluid balance is -711 cc. The patient remains on vital HP at a rate of 55 cc an hour. Cardiac rhythm is sinus. The white cell count is at 22 with a heme of 12.9 and a platelet count of 219. Sodium is at 139, potassium is 4.2, bicarb is at 40, BUN 70 with a creatinine of 0.7. Chest x-ray findings are essentially unchanged. The patient continues to have diffuse interstitial changes bilaterally with a small right-sided pleural effusion. I had a discussion with the family. Based on her ongoing slow recovery mentation and profound generalized weakness, she may be a good c andidate for insertion of a tracheostomy and a PEG tube. No plans for lumbar puncture for today. On 09/13/2024, patient is being seen for a follow-up. Opens her eyes spontaneously. Does not follow commands. Grimaces to painful stimulation. Motor functions are absent. Remains on mechanical ventilator assist-control mode rate of 20, tidal volume 450, FiO2 of 40% with a PEEP of 5. Blood gas sh owed pH of 7.46 with a pCO2 of 46 and pO2 of 92. Fluid balance is -711 cc over the past 24 hours. Follow-up chest x-ray from today shows stable findings. Some atelectatic change left lung base and cardiomegaly and pulm vessel congestion. Improvement in the volume status compared to earlier chest x-rays. White cell count is at 20, hemoglobin 12 and a platelet count of 187. The sodium levels at 139, potassium is at 3.4, BUN 65 with a creatinine of 0.7. Blood sugar is 170. Remains on IV cefepime. Remains on Lantus insulin for blood sugar control 30 units along with NovoLog 10 units with meals. The patient is also on a combination of metoprolol and amiodarone. Cardiac rhythm is sinus. No episodes of atrial fibrillation. She remains on low-dose norepinephrine running at 0.06 mcg/kg/min. On 09/14/2024, neurologic functions are essentially unchanged. Remains unresponsive to verbal. She grimaces and she says it is painful stimulation. No significant motor function. Remains intubated on mechanical ventilator. She was running a low-grade fever and fever workup is in progress. Repeat cultures were sent. The patient was taken off IV cefepime and switched to vancomycin. She is on assist-control mode with rate of 20, tidal volume of 450, FiO2 40% with a PEEP of 5. pH is 7.45 with a pCO2 of 43 and pO2 of 107. Chest x-ray findings are essentially stable without any significant airspace disease or consolidation. The follow-up chest x-ray from today shows some mild pulm vascular congestion otherwise no other acute abnormalities noted. Fluid balance is +566 cc over the past 24 hours. The patient is on KVO IV fluids. The patient is on vital high-protein rate of 50 cc an hour. Remains on low-dose norepinephrine at 0.02 mcg/kg/min. The white cell count is at 11.5 with a hemoglobin 11.1 and a platelet count of 136. The sodium is at 142, bicarb is at 34, BUN is 55 with a creatinine of 0.7. AST is 43, ALT is 94.Repeat CAT scan of the brain was done on 09/14/2024 and showed no acute intracranial process. There is remote left basal ganglia lacunar injury with some nonspecific white matter changes secondary to chronic microangiopathy and chronic sinus disease.The most recent procalcitonin level is at 0.27 Patient was seen today on 09/15/2024, patient remains in the ICU intubated and mechanically ventilated, apparently multiple trials for weaning failed, patient is now scheduled for tracheostomy PEG tube placement today. She will also need a PICC line. Patient is on assist-control rate of 20 tidal volume 450 FiO2 40% PEEP of 5 ABG showed a pO2 of 100 pCO2 41 pH of 7.45 hence no changes were made in her vent settings. Patient remains on Precedex at 0.8 mcg/kg/h she is on LR at 20 cc/h vital HP at goal presently on hold she is also on Rocephin and vancomycin. Urine output has been about 50 cc/h. Chest x-ray is suggestive of fluid overload with mild basilar infiltrate/atelectasis greater on the left. There is also small pleural effusions. Her WBC count today is 10.5 hemoglobin 10.9 hematocrit 33.9 electrolytes are normal BUN is 52 creatinine 0.63. Again patient is scheduled to have a PEG tube and a tracheostomy done today as she has been intubated for almost 2 weeks, and she is not ready to be weaned or extubated. Objective - Vital Signs Vital signs: Vital Signs Temp 97.9 F 09/15/24 12:00 Pulse 64 09/15/24 13:00 Resp 10 L 09/15/24 13:00 BP 112/48 09/15/24 13:00 Pulse Ox 97 09/15/24 13:00 FiO2 40 09/15/24 12:44 Intake & Output 09/14/24 09/15/24 09/15/24 18:59 06:59 18:59 Intake Total 1416.392 626.047 368.000 Output Total 860 815 435 Balance 556.392 -188.953 -67.000 Weight 78.4 kg 78.4 kg Intake: IV 466 136 218 .9NS 100 0.9 3cc/ hr a-line 36 36 18 0.9 at KVO 80 Magnesium Sulfate-D5w Pmx 100 1 gm In Dextrose/Water 1 100ml.bag @ 100 mls/hr IVPB ONCE ONE Rx#: [id number] Potassium Chloride 10 meq 100 100 In Water For Injection 1 100ml.bag @ 100 mls/hr IVPB Q1H [facility] Rx#: [id number] Vancomycin 1,250 mg In 250 Sodium Chloride 0.9% 250 ml @ 125 mls/hr IVPB Q16H [facility] Rx#:[id number] Intake, IV Titration 200.392 185.047 150.000 Amount Dexmedetomidine/0.9% NaCl 188.744 185.047 100.000 (Pmx) 400 mcg In Empty Bag 1 bag @ 0.2 MCG/KG/HR 3.733 mls/hr IV .Q24H [facility] Rx#:[id number] Norepinephrine 8 mg In 11.648 Sodium Chloride 0.9% 250 ml @ 0.03 MCG/KG/MIN 4. 261 mls/hr IV .Q24H [facility] Rx#:[id number] cefTRIAXone 2 gm In 50 Sodium Chloride 0.9% 50 ml @ 100 mls/hr IVPB Q24HR [facility] Rx#:[id number] Tube Feeding 660 275 0 Other 90 30 0 Output: Urine 860 815 435 Other: Voiding Method Indwelling Catheter Indwelling Catheter Indwelling Catheter # Bowel Movements 0 0 ABP, PAP, CO, CI - Last Documented Arterial Blood Pressure 82/66 - Exam GENERAL EXAM: Revealed 72-year-old female intubated, lethargic, arousable, but does not follow instructions HEAD: Normocephalic. EYES: PERRLA, EOMI, NOSE: Clear with pink turbinates. THROAT: Oral endotracheal and gastric tube secured in place. No erythema or exudates. Endotracheal tube and orogastric tube are intact NECK: No masses, no JVD. CHEST: No chest wall deformity. Left subclavian triple-lumen catheter in place. LUNGS: Equal air entry with few scattered rhonchi. CVS: S1 and S2 normal with no audible murmur, regular rhythm. ABDOMEN: No hepatosplenomegaly, normal bowel sounds, no guarding or rigidity. SKIN: Areas of ecchymosis and bruising. Weeping skin noted mostly on the forearms specially right forearm area CENTRAL NERVOUS SYSTEM: Sedated, tone is normal in all 4 extremities. encephalopathic, off sedation EXTREMITIES: Right radial arterial line in place. Trace of bipedal edema - Labs CBC & Chem 7: 09/15/24 05:05 09/15/24 05:05 Labs: Abnormal Lab Results - Last 24 Hours (Table) 09/14/24 09/14/24 09/14/24 Range/Units 04:28 11:50 13:41 RBC (3.80-5.40) m/uL Hgb (11.4-16.0) gm/dL Hct (34.0-46.0) % MCV (80.0-100.0) fL Plt Count (150-450) k/uL ABG HCO3 (21-25) mmol/L ABG Total CO2 (19-24) mmol/L ABG O2 Saturation (94-97) % Chloride (98-107) mmol/L BUN (7-17) mg/dL Glucose (74-99) mg/dL POC Glucose (mg/dL) (70-110) mg/dL Calcium (8.4-10.2) mg/dL Ammonia 34 H (<30) umol/L Free T3 pg/mL 0.90 L (2.30-4.20) pg/mL CSF RBC 4444 H (0-10) u/L CSF Tot Nucleated Cells 16 H* (0-5) u/L HSV I IgG Interpret (Negative) HSV II IgG Interpret (Negative) VZV IgG Interpret (Negative) 09/14/24 09/14/24 09/14/24 Range/Units 16:43 20:32 23:03 RBC (3.80-5.40) m/uL Hgb (11.4-16.0) gm/dL Hct (34.0-46.0) % MCV (80.0-100.0) fL Plt Count (150-450) k/uL ABG HCO3 (21-25) mmol/L ABG Total CO2 (19-24) mmol/L ABG O2 Saturation (94-97) % Chloride (98-107) mmol/L BUN (7-17) mg/dL Glucose (74-99) mg/dL POC Glucose (mg/dL) 142 H 130 H (70-110) mg/dL Calcium (8.4-10.2) mg/dL Ammonia (<30) umol/L Free T3 pg/mL (2.30-4.20) pg/mL CSF RBC (0-10) u/L CSF Tot Nucleated Cells (0-5) u/L HSV I IgG Interpret Positive A (Negative) HSV II IgG Interpret Positive A (Negative) VZV IgG Interpret Positive A (Negative) 09/15/24 09/15/24 09/15/24 Range/Units 05:05 05:05 05:16 RBC 3.20 L (3.80-5.40) m/uL Hgb 10.9 L (11.4-16.0) gm/dL Hct 33.9 L (34.0-46.0) % MCV 105.8 H (80.0-100.0) fL Plt Count 123 L (150-450) k/uL ABG HCO3 29 H (21-25) mmol/L ABG Total CO2 30 H (19-24) mmol/L ABG O2 Saturation 98.2 H (94-97) % Chloride 110 H (98-107) mmol/L BUN 52 H (7-17) mg/dL Glucose 128 H (74-99) mg/dL POC Glucose (mg/dL) (70-110) mg/dL Calcium 8.0 L (8.4-10.2) mg/dL Ammonia (<30) umol/L Free T3 pg/mL (2.30-4.20) pg/mL CSF RBC (0-10) u/L CSF Tot Nucleated Cells (0-5) u/L HSV I IgG Interpret (Negative) HSV II IgG Interpret (Negative) VZV IgG Interpret (Negative) 09/15/24 09/15/24 Range/Units 05:58 11:57 RBC (3.80-5.40) m/uL Hgb (11.4-16.0) gm/dL Hct (34.0-46.0) % MCV (80.0-100.0) fL Plt Count (150-450) k/uL ABG HCO3 (21-25) mmol/L ABG Total CO2 (19-24) mmol/L ABG O2 Saturation (94-97) % Chloride (98-107) mmol/L BUN (7-17) mg/dL Glucose (74-99) mg/dL POC Glucose (mg/dL) 139 H 127 H (70-110) mg/dL Calcium (8.4-10.2) mg/dL Ammonia (<30) umol/L Free T3 pg/mL (2.30-4.20) pg/mL CSF RBC (0-10) u/L CSF Tot Nucleated Cells (0-5) u/L HSV I IgG Interpret (Negative) HSV II IgG Interpret (Negative) VZV IgG Interpret (Negative) Microbiology - Last 24 Hours (Table) 09/13/24 16:42 Urine Culture - Final Urine,Voided 09/14/24 11:50 CSF Gram Stain - Preliminary Cerebral Spinal Fluid 09/09/24 17:30 Blood Culture - Final Blood 09/13/24 14:40 Blood Culture - Preliminary Blood Assessment and Plan Assessment: Impression: Acute on chronic hypoxic respiratory failure secondary to a COPD exacerbation, systolic CHF exacerbation, influenza A. Acute exacerbation of COPD, remains on bronchodilators Acute on chronic systolic congestive heart failure. The patient has impairment of the LV function with an ejection fraction of 35%, nonischemic cardiomyopathy with moderate degree of mitral regurgitation. Bilateral pneumonia, likely superinfection following influenza A infection and the patient has positive cultures with Streptococcus pneumonia and Klebsiella oxytoca. Leukocytosis, secondary to above Atrial fibrillation with rapid ventricular response, presently in normal sinus rhythm, patient received cardioversion on 09/07 and she is on amiodarone Alcoholism Acute metabolic encephalopathy secondary to above. Moderate mitral regurgitation Nonischemic cardiomyopathy, EF of 35% Hypertension Dyslipidemia Hypothyroidism, thyroid function tests were noted, free T4 is elevated Recommendation: Continue ventilatory support Continue antibiotics Continue to hold sedation hoping to have more improvement in her mental status Patient is now off pressors/norepinephrine but blood pressure remains marginal Continue to hold anticoagulation as the patient is scheduled for PEG and tracheostomy today Continue GI and DVT prophylaxis Continue to monitor mentation Continue Levemir insulin and sliding scale insulin CT of the brain was noted Continue bronchodilators Patient finished full course of Tamiflu Continue diuretics Continue amiodarone Continue nutritional support/enteral feeding, this will be restarted tomorrow now is on hold for PEG tube placement Patient remains critically ill Time with Patient: Greater than 30
[2024-09-15] MEDS ORDERED: fentaNYL (PF) 50 MCG/ML 2 ML AMP ONE (15:25)
[2024-09-15] MEDS ORDERED: PROPOFOL 10 MG/ML 20 ML VIAL IV ONE (15:25)
[2024-09-15] MEDS ORDERED: ROCURONIUM 10 MG/ML (5 ML VIAL) IV ONE (15:25)
--- NOTE | 2024-09-15 16:47 | P.PN ---
Subjective PROGRESS NOTE The patient is a 74-year-old female with known history of COPD, nonischemic cardiomyopathy, permanent atrial fibrillation with attempted cardioversion in May 2023 who presented with progressive dyspnea and worsening peripheral ed viktoriya, was diagnosed with influenza A infection. She had worsening of her respiratory status requiring mechanical ventilation. She remains intubated, good urine output and tolerating feeding. She has no evidence of malignant arrhythmia. Her echocardiogram and admission showed an ejection fraction of 35% with mild to moderate tricuspid regurgitation and severe pulmonary hypertension that has been documented in the past. She is in sinus mechanism at this time. She underwent CT scan of the head that showed no evidence of acute events. September 09: The patient remains intubated, not following verbal command. She is in sinus mechanism on no vasopressors. Her urinary output has been good. She has been evaluated by the neurology service for her mental status and felt probably to have metabolic encephalopathy. There is no evidence of recurrent atrial fibrillation. She continues to be in sinus mechanism. September 10: The patient remains intubated and sedated, in sinus mechanism. Hemodynamically stable. She had an echocardiogram that showed an ejection fraction of 40 to 45% with moderate severe pulmonary hypertension and dilated right ventricle and mild to moderate tricuspid regurgitation. She remains unresponsive and is being evaluated by the neurology service September 11: The patient remains intubated, not following command clearly. She continues to be in sinus mechanism. She continues to be of anticoagulation because of possible lumbar puncture today. Hemodynamically she is stable. Her urinary output is stable. She had no evidence of ventricular tachyarrhythmia. Her chest x-ray shows no significant changes. September 12: The patient remains intubated but is opening her eyes to verbal stimulation. She continues to be in sinus mechanism, hemodynamically stable. There is no evidence of ventricular ectopic activity. Her chest x-ray shows evidence of right-sided effusion. She did not undergo a LP. She continues to be off anticoagulation. September 13: The patient remains intubated but more awake earlier, she has been sedated at this point. The plan is to proceed with PEG tube and tracheostomy on Sunday. She is on subcu heparin. Hemodynamically she is requiring low-dose norepinephrine. There is no evidence of atrial fibrillation. Her urinary outpu t has been stable. : The patient is intubated but following verbal command, she continues to be in sinus mechanism, hemodynamically stable, urine output has been good. She is on the lower dose of norepinephrine. She is scheduled to undergo an LP today and a trach and a PEG tomorrow. Her anticoagulation remains on hold. 09/15 Patient seen and examined. Patient remains on ventilator with FiO2 40% and PEEP of 5. Patient on Precedex as well as IV fluids at 20 mL per hour. Normal sinus rhythm. Hemoglobin 10.9, BUN 52, creatinine 0.6. PHYSICAL EXAMINATION: Blood pressure 132/50 heart rate 68, intubated, following command LUNGS: Clear to auscultation anteriorly HEART: Regular rate and rhythm, S1, S2. No S3. Systolic ejection murmur ABDOMEN: Soft, positive bowel sounds, no organomegaly EXTREMETIES: No edema IMPRESSION: 1. Respiratory failure with COPD exacerbation, influenza A and history of CHF with reduced ejection fraction 2. Chronic cardiomyopathy, nonischemic, 3. Atrial fibrillation, maintaining sinus mechanism, status post cardioversion 4. Prior history of alcohol intake 5. Streptococcus pneumonia with leukocytosis, improving 6. Prior history of hypertension 7. Metabolic encephalopathy., Improving PLAN: 1. Continue present therapy 2. Resume anticoagulation when cleared by surgery 3. Monitor blood pressure and adjust treatment accordingly Objective - Vital Signs Vital signs: Vital Signs Temp 97.9 F 09/15/24 12:00 Pulse 74 09/15/24 16:42 Resp 10 L 09/15/24 15:00 BP 116/46 09/15/24 15:00 Pulse Ox 97 09/15/24 15:00 FiO2 40 09/15/24 16:31 Intake & Output 09/14/24 09/15/24 09/15/24 18:59 06:59 18:59 Intake Total 1416.392 626.047 414.000 Output Total 860 815 595 Balance 556.392 -188.953 -181.000 Weight 78.4 kg 78.4 kg Intake: IV 466 136 264 .9NS 140 0.9 3cc/ hr a-line 36 36 24 0.9 at KVO 80 Magnesium Sulfate-D5w Pmx 100 1 gm In Dextrose/Water 1 100ml.bag @ 100 mls/hr IVPB ONCE ONE Rx#: [id number] Potassium Chloride 10 meq 100 100 In Water For Injection 1 100ml.bag @ 100 mls/hr IVPB Q1H [facility] Rx#: [id number] Vancomycin 1,250 mg In 250 Sodium Chloride 0.9% 250 ml @ 125 mls/hr IVPB Q16H [facility] Rx#:[id number] Intake, IV Titration 200.392 185.047 150.000 Amount Dexmedetomidine/0.9% NaCl 188.744 185.047 100.000 (Pmx) 400 mcg In Empty Bag 1 bag @ 0.2 MCG/KG/HR 3.733 mls/hr IV .Q24H [facility] Rx#:[id number] Norepinephrine 8 mg In 11.648 Sodium Chloride 0.9% 250 ml @ 0.03 MCG/KG/MIN 4. 261 mls/hr IV .Q24H [facility] Rx#:[id number] cefTRIAXone 2 gm In 50 Sodium Chloride 0.9% 50 ml @ 100 mls/hr IVPB Q24HR [facility] Rx#:[id number] Tube Feeding 660 275 0 Other 90 30 0 Output: Urine 860 815 595 Other: Voiding Method Indwelling Catheter Indwelling Catheter Indwelling Catheter # Bowel Movements 0 0 ABP, PAP, CO, CI - Last Documented Arterial Blood Pressure 159/63 - Labs CBC & Chem 7: 09/15/24 05:05 09/15/24 05:05 Labs: Abnormal Lab Results - Last 24 Hours (Table) 09/14/24 09/14/24 09/14/24 Range/Units 04:28 16:43 20:32 RBC (3.80-5.40) m/uL Hgb (11.4-16.0) gm/dL Hct (34.0-46.0) % MCV (80.0-100.0) fL Plt Count (150-450) k/uL ABG HCO3 (21-25) mmol/L ABG Total CO2 (19-24) mmol/L ABG O2 Saturation (94-97) % Chloride (98-107) mmol/L BUN (7-17) mg/dL Glucose (74-99) mg/dL POC Glucose (mg/dL) 142 H (70-110) mg/dL Calcium (8.4-10.2) mg/dL Free T3 pg/mL 0.90 L (2.30-4.20) pg/mL HSV I IgG Interpret Positive A (Negative) HSV II IgG Interpret Positive A (Negative) VZV IgG Interpret Positive A (Negative) 09/14/24 09/15/24 09/15/24 Range/Units 23:03 05:05 05:05 RBC 3.20 L (3.80-5.40) m/uL Hgb 10.9 L (11.4-16.0) gm/dL Hct 33.9 L (34.0-46.0) % MCV 105.8 H (80.0-100.0) fL Plt Count 123 L (150-450) k/uL ABG HCO3 (21-25) mmol/L ABG Total CO2 (19-24) mmol/L ABG O2 Saturation (94-97) % Chloride 110 H (98-107) mmol/L BUN 52 H (7-17) mg/dL Glucose 128 H (74-99) mg/dL POC Glucose (mg/dL) 130 H (70-110) mg/dL Calcium 8.0 L (8.4-10.2) mg/dL Free T3 pg/mL (2.30-4.20) pg/mL HSV I IgG Interpret (Negative) HSV II IgG Interpret (Negative) VZV IgG Interpret (Negative) 09/15/24 09/15/24 09/15/24 Range/Units 05:16 05:58 11:57 RBC (3.80-5.40) m/uL Hgb (11.4-16.0) gm/dL Hct (34.0-46.0) % MCV (80.0-100.0) fL Plt Count (150-450) k/uL ABG HCO3 29 H (21-25) mmol/L ABG Total CO2 30 H (19-24) mmol/L ABG O2 Saturation 98.2 H (94-97) % Chloride (98-107) mmol/L BUN (7-17) mg/dL Glucose (74-99) mg/dL POC Glucose (mg/dL) 139 H 127 H (70-110) mg/dL Calcium (8.4-10.2) mg/dL Free T3 pg/mL (2.30-4.20) pg/mL HSV I IgG Interpret (Negative) HSV II IgG Interpret (Negative) VZV IgG Interpret (Negative) Microbiology - Last 24 Hours (Table) 09/14/24 11:50 CSF Gram Stain - Preliminary Cerebral Spinal Fluid CSF Culture - Preliminary 09/13/24 16:42 Urine Culture - Final Urine,Voided 09/09/24 17:30 Blood Culture - Final Blood 09/13/24 14:40 Blood Culture - Preliminary Blood
[2024-09-15] MEDS: VANCOMYCIN TROUGH DUE 1 EACH MISC MISCELLANE ONE (17:26)
[2024-09-15 17:45] LABS: Glucose,Whole Blood 123 mg/dL (70-110)
[2024-09-15 23:17] LABS: Glucose,Whole Blood 102 mg/dL (70-110)
--- NOTE | 2024-09-16 01:41 | EEG ---
ELECTROENCEPHALOGRAM REPORT CLINICAL HISTORY: This is a 74-year-old woman with altered mental status. The video EEG is obtained to evaluate for seizure epileptiform activity. RELEVANT MEDICATION: The patient is not on any antiseizure medication. EEG TYPE: This is a routine 21-channel EEG with video using the 10/20 electrode placement system. DESCRIPTION: The patient is intubated on ventilator. The background consists of [id number] voltage of 7 to 8 hertz activity. There is no physiological stage 2 sleep architecture. There is no focal slowing. Interictal and ictal is none. ACTIVATION PROCEDURE: Photic stimulation did not evoke a posterior driving response. There is no abnormality during the photic stimulation. Hyperventilation is not performed. CLINICAL INTERPRETATION: This is an abnormal routine EEG. The background slowing is suggestive of mild encephalopathy. There is no focal slowing, epileptiform discharge, or seizure on the EEG. Lack of epileptiform discharges does not rule out underlying epilepsy. Clinical correlation is recommended. DENIZ / KAREN: [id number] / [email or web address]
[2024-09-16 04:47] LABS: Allen Test Performed? Yes
[2024-09-16 05:09] LABS: Glucose,Whole Blood 70 mg/dL (70-110)
[2024-09-16] MEDS: DEXTROSE 50% SYRINGE 50 ML IVP PRN (05:19)
[2024-09-16 05:21] LABS: ABG HCO3 29 mmol/L (21-25); ABG PCO2 40 mmHg (35-45); ABG PH 7.47 (7.35-7.45); ABG PO2 82 mmHg (83-108)
[2024-09-16 05:22] LABS: ABG Base Excess 4.7 mmol/L; ABG TCO2 30 mmol/L (19-24)
[2024-09-16 05:40] LABS: Glucose,Whole Blood 149 mg/dL (70-110)
[2024-09-16 06:20] LABS: Basophils % (A) 0 %; Eosinophils # (A) 0.1 k/uL (0-0.7); Eosinophils % (A) 0 %; HCT 37.5 % (34.0-46.0); HGB 11.6 gm/dL (11.4-16.0); Hypochromasia Moderate; Lymphocytes # (A) 0.3 k/uL (1.0-4.8); Lymphocytes % (A) 2 %; MCH 33.3 pg (25.0-35.0); MCHC 30.9 g/dL (31.0-37.0); MCV 107.8 fL (80.0-100.0); Macrocytosis Moderate; Mean Platelet Volume 11.4; Monocytes # (A) 0.4 k/uL (0-1.0); Monocytes % (A) 3 %; Neutrophils # (A) 13.5 k/uL (1.3-7.7); Neutrophils % (A) 93 %; Platelet Count 134 k/uL (150-450); RBC 3.48 m/uL (3.80-5.40); RDW 14.1 % (11.5-15.5); WBC 14.5 k/uL (3.8-10.6)
[2024-09-16 06:58] LABS: ALT 75 U/L (4-34); AST 35 U/L (14-36); African American GFR (CKD) >90 (>60 ml/min/1.73 sqM); Alkaline Phosphatase 141 U/L (38-126); Anion Gap 5 mmol/L; Bilirubin,Unconjugated 0.7 mg/dL (0.0-1.1); Blood Urea Nitrogen 45 mg/dL (7-17); Carbon Dioxide 29 mmol/L (22-30); Chloride 111 mmol/L (98-107); Glucose 68 mg/dL (74-99); Non-African American GFR(CKD) 87 (>60 ml/min/1.73 sqM); Potassium 3.5 mmol/L (3.5-5.1); Sodium 145 mmol/L (137-145); Total Bilirubin 1.7 mg/dL (0.2-1.3); Total Protein 4.9 g/dL (6.3-8.2)
--- NOTE | 2024-09-16 08:03 | P.PN ---
Subjective Progress Note Date: 09/15/24 Principal diagnosis: Reason for follow-up fever pneumonia Patient is a 74-year-old female with a past medical history significant for hypertension COPD heart failure, atrial fibrillation presenting to the hospital on 08/28/2024 for evaluation of increasing shortness of breath, patient did require intubation during this hospital stay and sputum culture have been positive initially for strep pneumo subsequently Klebsiella infectious he consulted because of persistent fever. On today's evaluation that is 09/15/2024, patient has been afebrile, patient is on the ventilator FiO2 currently stable at 40% no significant purulent secretion through the ET diarrhea any changes reported by nursing staff. Patient white count normalized to 10.5 creatinine is 0.63 Objective - Vital Signs Vital signs: Vital Signs Temp 97.9 F 09/15/24 12:00 Pulse 61 09/15/24 12:00 Resp 20 09/15/24 12:00 BP 113/50 09/15/24 12:00 Pulse Ox 98 09/15/24 12:00 FiO2 40 09/15/24 12:00 Intake & Output 09/14/24 09/15/24 09/15/24 18:59 06:59 18:59 Intake Total 1416.392 626.047 368.000 Output Total 860 815 435 Balance 556.392 -188.953 -67.000 Weight 78.4 kg 78.4 kg Intake: IV 466 136 218 .9NS 100 0.9 3cc/ hr a-line 36 36 18 0.9 at KVO 80 Magnesium Sulfate-D5w Pmx 100 1 gm In Dextrose/Water 1 100ml.bag @ 100 mls/hr IVPB ONCE ONE Rx#: [id number] Potassium Chloride 10 meq 100 100 In Water For Injection 1 100ml.bag @ 100 mls/hr IVPB Q1H [facility] Rx#: [id number] Vancomycin 1,250 mg In 250 Sodium Chloride 0.9% 250 ml @ 125 mls/hr IVPB Q16H [facility] Rx#:[id number] Intake, IV Titration 200.392 185.047 150.000 Amount Dexmedetomidine/0.9% NaCl 188.744 185.047 100.000 (Pmx) 400 mcg In Empty Bag 1 bag @ 0.2 MCG/KG/HR 3.733 mls/hr IV .Q24H [facility] Rx#:[id number] Norepinephrine 8 mg In 11.648 Sodium Chloride 0.9% 250 ml @ 0.03 MCG/KG/MIN 4. 261 mls/hr IV .Q24H [facility] Rx#:[id number] cefTRIAXone 2 gm In 50 Sodium Chloride 0.9% 50 ml @ 100 mls/hr IVPB Q24HR [facility] Rx#:[id number] Tube Feeding 660 275 0 Other 90 30 0 Output: Urine 860 815 435 Other: Voiding Method Indwelling Catheter Indwelling Catheter Indwelling Catheter # Bowel Movements 0 0 ABP, PAP, CO, CI - Last Documented Arterial Blood Pressure 74/49 - Exam GENERAL DESCRIPTION: An elderly female intubated on the vent RESPIRATORY SYSTEM: Unlabored breathing , decreased breath sounds at bases HEART: S1 S2 regular rate and rhythm , ABDOMEN: Soft , no tenderness EXTREMITIES: No edema feet - Labs CBC & Chem 7: 09/16/24 05:00 09/16/24 05:00 Labs: Abnormal Lab Results - Last 24 Hours (Table) 09/14/24 09/14/24 09/14/24 Range/Units 04:28 11:50 13:41 RBC (3.80-5.40) m/uL Hgb (11.4-16.0) gm/dL Hct (34.0-46.0) % MCV (80.0-100.0) fL Plt Count (150-450) k/uL ABG HCO3 (21-25) mmol/L ABG Total CO2 (19-24) mmol/L ABG O2 Saturation (94-97) % Chloride (98-107) mmol/L BUN (7-17) mg/dL Glucose (74-99) mg/dL POC Glucose (mg/dL) (70-110) mg/dL Calcium (8.4-10.2) mg/dL Ammonia 34 H (<30) umol/L Free T3 pg/mL 0.90 L (2.30-4.20) pg/mL CSF RBC 4444 H (0-10) u/L CSF Tot Nucleated Cells 16 H* (0-5) u/L 09/14/24 09/14/24 09/15/24 Range/Units 16:43 23:03 05:05 RBC 3.20 L (3.80-5.40) m/uL Hgb 10.9 L (11.4-16.0) gm/dL Hct 33.9 L (34.0-46.0) % MCV 105.8 H (80.0-100.0) fL Plt Count 123 L (150-450) k/uL ABG HCO3 (21-25) mmol/L ABG Total CO2 (19-24) mmol/L ABG O2 Saturation (94-97) % Chloride (98-107) mmol/L BUN (7-17) mg/dL Glucose (74-99) mg/dL POC Glucose (mg/dL) 142 H 130 H (70-110) mg/dL Calcium (8.4-10.2) mg/dL Ammonia (<30) umol/L Free T3 pg/mL (2.30-4.20) pg/mL CSF RBC (0-10) u/L CSF Tot Nucleated Cells (0-5) u/L 09/15/24 09/15/24 09/15/24 Range/Units 05:05 05:16 05:58 RBC (3.80-5.40) m/uL Hgb (11.4-16.0) gm/dL Hct (34.0-46.0) % MCV (80.0-100.0) fL Plt Count (150-450) k/uL ABG HCO3 29 H (21-25) mmol/L ABG Total CO2 30 H (19-24) mmol/L ABG O2 Saturation 98.2 H (94-97) % Chloride 110 H (98-107) mmol/L BUN 52 H (7-17) mg/dL Glucose 128 H (74-99) mg/dL POC Glucose (mg/dL) 139 H (70-110) mg/dL Calcium 8.0 L (8.4-10.2) mg/dL Ammonia (<30) umol/L Free T3 pg/mL (2.30-4.20) pg/mL CSF RBC (0-10) u/L CSF Tot Nucleated Cells (0-5) u/L 09/15/24 Range/Units 11:57 RBC (3.80-5.40) m/uL Hgb (11.4-16.0) gm/dL Hct (34.0-46.0) % MCV (80.0-100.0) fL Plt Count (150-450) k/uL ABG HCO3 (21-25) mmol/L ABG Total CO2 (19-24) mmol/L ABG O2 Saturation (94-97) % Chloride (98-107) mmol/L BUN (7-17) mg/dL Glucose (74-99) mg/dL POC Glucose (mg/dL) 127 H (70-110) mg/dL Calcium (8.4-10.2) mg/dL Ammonia (<30) umol/L Free T3 pg/mL (2.30-4.20) pg/mL CSF RBC (0-10) u/L CSF Tot Nucleated Cells (0-5) u/L Microbiology - Last 24 Hours (Table) 09/13/24 16:42 Urine Culture - Final Urine,Voided 09/14/24 11:50 CSF Gram Stain - Preliminary Cerebral Spinal Fluid 09/09/24 17:30 Blood Culture - Final Blood 09/13/24 14:40 Blood Culture - Preliminary Blood Assessment and Plan (1) Sepsis Current Visit: Yes Status: Acute Code(s): A41.9 - SEPSIS, UNSPECIFIED ORGANISM SNOMED Code(s): 93055370 (2) Pneumonia Current Visit: No Status: Acute Code(s): J18.9 - PNEUMONIA, UNSPECIFIED ORGANISM SNOMED Code(s): 333807556 Plan: 1patient with sepsis in this patient who did have fever elevated white count in this patient with acute respiratory failure requiring intubation and has been the hospital for almost 16 days before initial consultation source of the persistent fever could be related to the multiple lines the patient has including supplement as to outlines and will need to cover for the gram-positive skin yuliya to be the likely pathogen 2-blood culture has been obtained results are currently pending 3-patient did have resolution of her fever white count down has normalized 4patient to continue with vancomycin pharmacy to dose and Rocephin, monitor clinical course closely Dictation was produced using [employer] dictation software. please excuse any grammatical, word or spelling errors. Time with Patient: Less than 30
--- NOTE | 2024-09-16 08:14 | XR ---
EXAMINATION TYPE: XR chest 1V portable DATE OF EXAM: 09/16/2024 5:06 AM COMPARISON: 09/15/2024 CLINICAL INDICATION: Female, 74 years old with history of intubated, TECHNIQUE: XR chest 1V portable view(s) obtained. FINDINGS: The heart size is normal. The pulmonary vasculature is normal. Mild infiltrates at the left costophrenic angle. Minimal effusion and/or atelectasis present. Tracheostomy tube is been placed. PICC line enters on the right with the tip in the superior vena cav a region IMPRESSION: 1. Small left pleural effusion and/or atelectasis [facility], , 09/16/2024 8:11 AM
[2024-09-16] MEDS: POTASSIUM CHLORIDE 20 MEQ in WATER FOR INJECTION 1 100ML.BAG IVPB SCH (10:07)
--- NOTE | 2024-09-16 10:10 | P.PN ---
Subjective Progress Note Date: 09/16/24 No new complaints, pending viral PCRs, comp viral panel, MS panel from LP. TFTs elevated but with high FT4, low FT3, on last check, still elevated FT4 today, and pending FT3, but this is most likely secondary to critical illness rather than primary, secondary, or iatrogenic hyperthyroidism. General: intubated HEENT: normocephalic, atraumatic, no tracheal deviation Respiratory: symmetric chest rise, no cyanosis, ventilator dependent CVS: perfusing all extremities, no distal gangrene, trace pitting edema GI: soft, ND : no SPT, no CVAT, stewart is present Neuro: wakes to voice, quadriparesis Hospital Course: Patient is a 74-year-old female with past medical history significant for COPD with chronic respiratory failure, CHF, atrial fibrillation on Coumadin, and hypertension presented for 1 week worsening of breathing as well as significant cough. Initially, treated for management of acute on chronic hypoxic respiratory failure secondary to COPD exacerbation, influenza A, acute HFrEF exacerbation. Cardiology consulted. Started on IV Lasix, Coumadin continued, TTE ordered. Severe LV systolic dysfunction with EF 35%, severe pulmonary hypertension. Added Farxiga to her current medical regimen. Pt became progressively dyspnea and hallucinations, warranting BiPAP. Encephalopathy was felt secondary to ETOH withdrawal, but pt became progressively obtunded and intubated on 09/02. Also went into A-Fib with RVR, successfully cardioverted on 09/03. Sedation holidays were failed on 09/05, and after reattempt at holiday on 09/06, pt was noted the following day to be non-responsive, no withdrawal to pain, verbal stimuli, and had horizontal nystagmus. Brain CT showed no evidence of a cute intracranial pathology. Neurology was consulted on 09/08 who felt that neurological changes were secondary to toxic metabolic encephalopathy. EEG completed same day confirmed findings of generalized background slowing c/w metabolic encephalopathy vs diffuse structural brain abnormality. Consi derations were made for LP and Eliquis was held. Pt continued spiking fevers again starting on 09/09, leukocytosis worsened, repeat blood cultures were ordered, and started patient on broad-spectrum antibiotics with vancomycin and cefepime. Sputum cultures ultimately grew klebsiella and strep pneumo. Between 09/10-09/13, patient did note having modest improvement in neurological exam, but still extremely quadriparetic. Assessment and Plan: Septic Shock with Acute on chronic hypoxic respiratory failure multifactorial, Influenza A Klebsiella and Strep Pneumo Community Acquired Pneumonia Acute COPD exacerbation, -Pulmonology consulted, following -IV Solu-Medrol 40 mg every 12 hours discontinued on 09/11. -Cefepime discontinued secondary to possible cefepime neurotoxicity; vancomycin initiated with ID consultation; ceftriaxone initiated with ID consultation -Continue with DuoNeb Q4H scheduled and Q2N PRN. -Continue Pulmicort 1 mg INH BID and Performist 20 mcg INH BID. 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 -Cardiology on board. -Started on amiodarone 400 mg p.o. twice daily, dose decreased to 200 mg twice daily 09/10; r/t hyperthyroidism below - AIT 1 and 2 are very unlikely given timing -Continue Entresto -Continue Metoprolol 50 mg PO BID. -Started on Eliquis 5 twice daily, currently on hold in anticipation of LP Hyperthyroidism -discontinue IV levothyroxine -FT3 is low; this could be r/t critical systemic illness and these labs are difficult to interpret in this pt - pending FT3 on 09/16, if still low will resume levothyroxine at 50% dose by mouth. -AM cortisol ordered, and normal DVT prophylaxis: heparin TID Anticipated discharge pending Clinical course Objective - Vital Signs Vital signs: Vital Signs Temp 99.6 F 09/16/24 08:00 Pulse 87 09/16/24 09:00 Resp 17 09/16/24 09:00 BP 109/47 09/16/24 09:00 Pulse Ox 95 09/16/24 09:00 FiO2 40 09/16/24 09:16 Intake & Output 09/15/24 09/16/24 09/16/24 18:59 06:59 18:59 Intake Total 506.000 254.220 403.811 Output Total 780 740 230 Balance -274.000 -485.780 173.811 Weight 78.4 kg 78.6 kg Intake: IV 356 20 40 .9NS 220 20 40 0.9 3cc/ hr a-line 36 Potassium Chloride 10 meq 100 In Water For Injection 1 100ml.bag @ 100 mls/hr IVPB Q1H [facility] Rx#: [id number] Intake, IV Titration 150.000 234.220 363.811 Amount Dexmedetomidine/0.9% NaCl 100.000 234.220 13.811 (Pmx) 400 mcg In Empty Bag 1 bag @ 0.2 MCG/KG/HR 3.733 mls/hr IV .Q24H [facility] Rx#:[id number] Potassium Chloride 20 meq 100 In Water For Injection 1 100ml.bag @ 50 mls/hr IVPB Q2H [facility] Rx#: [id number] Vancomycin 1,250 mg In 250 Sodium Chloride 0.9% 250 ml @ 125 mls/hr IVPB Q16H [facility] Rx#:[id number] cefTRIAXone 2 gm In 50 Sodium Chloride 0.9% 50 ml @ 100 mls/hr IVPB Q24HR [facility] Rx#:[id number] Tube Feeding 0 0 0 Other 0 Output: Urine 780 740 230 Other: Voiding Method Indwelling Catheter Indwelling Catheter Indwelling Catheter ABP, PAP, CO, CI - Last Documented Arterial Blood Pressure 166/47 - Labs CBC & Chem 7: 09/16/24 05:00 09/16/24 05:00 Labs: Abnormal Lab Results - Last 24 Hours (Table) 09/13/24 09/14/24 09/14/24 Range/Units 14:40 04:28 20:32 WBC (3.8-10.6) k/uL RBC (3.80-5.40) m/uL MCV (80.0-100.0) fL MCHC (31.0-37.0) g/dL Plt Count (150-450) k/uL Neutrophils # (1.3-7.7) k/uL Lymphocytes # (1.0-4.8) k/uL ABG pH (7.35-7.45) ABG pO2 (83-108) mmHg ABG HCO3 (21-25) mmol/L ABG Total CO2 (19-24) mmol/L Chloride (98-107) mmol/L BUN (7-17) mg/dL Glucose (74-99) mg/dL POC Glucose (mg/dL) (70-110) mg/dL Calcium (8.4-10.2) mg/dL Total Bilirubin (0.2-1.3) mg/dL Delta Bilirubin (0.0-0.2) mg/dL ALT (4-34) U/L Alkaline Phosphatase (38-126) U/L Total Protein (6.3-8.2) g/dL Albumin (3.5-5.0) g/dL Methylmalonic Acid 0.79 H (<0.40) umol/L TSH (0.465-4.680) mIU/L Free T4 (0.78-2.19) ng/dL Free T3 pg/mL 0.90 L (2.30-4.20) pg/mL HSV I IgG Interpret Positive A (Negative) HSV II IgG Interpret Positive A (Negative) VZV IgG Interpret Positive A (Negative) 09/15/24 09/15/24 09/16/24 Range/Units 11:57 17:44 04:45 WBC (3.8-10.6) k/uL RBC (3.80-5.40) m/uL MCV (80.0-100.0) fL MCHC (31.0-37.0) g/dL Plt Count (150-450) k/uL Neutrophils # (1.3-7.7) k/uL Lymphocytes # (1.0-4.8) k/uL ABG pH 7.47 H (7.35-7.45) ABG pO2 82 L (83-108) mmHg ABG HCO3 29 H (21-25) mmol/L ABG Total CO2 30 H (19-24) mmol/L Chloride (98-107) mmol/L BUN (7-17) mg/dL Glucose (74-99) mg/dL POC Glucose (mg/dL) 127 H 123 H (70-110) mg/dL Calcium (8.4-10.2) mg/dL Total Bilirubin (0.2-1.3) mg/dL Delta Bilirubin (0.0-0.2) mg/dL ALT (4-34) U/L Alkaline Phosphatase (38-126) U/L Total Protein (6.3-8.2) g/dL Albumin (3.5-5.0) g/dL Methylmalonic Acid (<0.40) umol/L TSH (0.465-4.680) mIU/L Free T4 (0.78-2.19) ng/dL Free T3 pg/mL (2.30-4.20) pg/mL HSV I IgG Interpret (Negative) HSV II IgG Interpret (Negative) VZV IgG Interpret (Negative) 09/16/24 09/16/24 09/16/24 Range/Units 05:00 05:00 05:39 WBC 14.5 H (3.8-10.6) k/uL RBC 3.48 L (3.80-5.40) m/uL MCV 107.8 H (80.0-100.0) fL MCHC 30.9 L (31.0-37.0) g/dL Plt Count 134 L (150-450) k/uL Neutrophils # 13.5 H (1.3-7.7) k/uL Lymphocytes # 0.3 L (1.0-4.8) k/uL ABG pH (7.35-7.45) ABG pO2 (83-108) mmHg ABG HCO3 (21-25) mmol/L ABG Total CO2 (19-24) mmol/L Chloride 111 H (98-107) mmol/L BUN 45 H (7-17) mg/dL Glucose 68 L (74-99) mg/dL POC Glucose (mg/dL) 149 H (70-110) mg/dL Calcium 8.0 L (8.4-10.2) mg/dL Total Bilirubin 1.7 H (0.2-1.3) mg/dL Delta Bilirubin 1.0 H (0.0-0.2) mg/dL ALT 75 H (4-34) U/L Alkaline Phosphatase 141 H (38-126) U/L Total Protein 4.9 L (6.3-8.2) g/dL Albumin 2.0 L (3.5-5.0) g/dL Methylmalonic Acid (<0.40) umol/L TSH 0.028 L (0.465-4.680) mIU/L Free T4 3.00 H (0.78-2.19) ng/dL Free T3 pg/mL (2.30-4.20) pg/mL HSV I IgG Interpret (Negative) HSV II IgG Interpret (Negative) VZV IgG Interpret (Negative) Microbiology - Last 24 Hours (Table) 09/13/24 16:42 Urine Culture - Final Urine,Voided Cyndi albicans 09/13/24 14:40 Blood Culture - Preliminary Blood 09/14/24 11:50 CSF Gram Stain - Preliminary Cerebral Spinal Fluid CSF Culture - Preliminary
--- NOTE | 2024-09-16 10:27 | P.OP ---
Date of Procedure: 09/16/24 Preoperative Diagnosis: Respiratory failure Malnutrition Postoperative Diagnosis: Same Procedure(s) Performed: Tracheostomy PEG tube Anesthesia: BONIFACIO Surgeon: Jaime Tobin Estimated Blood Loss (ml): 10 Pathology: none sent Condition: stable Disposition: PACU Operative Findings: Shiley fenestrated tracheostomy tube placed #8 Description of Procedure: The patient's placed on the bed in the supine position. The patient received general anesthesia. The neck was prepped and draped in usual sterile fashion. A standard transverse skin incision was made approximately 2 cm above the sternal notch. Using electrocautery the subcutaneous tissues were divided. The platysma was divided. A Wheatlander retractor was placed in the wound. Next the strap muscles were divided in the midline. Another weatlander retractor was placed the wound. The pretracheal fat was then divided with left cautery. The trachea was exposed. At this point the REFRIGERATION INSULATOR advance the and the tracheal tube into the right mainstem bronchus. The balloon was inflated. A tracheotomy was then performed between the second and third tracheal rings. The perivascular tissues a gracilis the trachea. The endotracheal tube was brought back under direct vision. And then the #8 Portex tracheostomy tube was placed into the trachea. End-tidal CO2 was confirmed. The patient had been connected to the ventilator. The patient was ventilated satisfactory. The skin incision site was then closed with 3-0 nylon after the retractors were withdrawn. An umbilical tie was used to secure the tracheostomy tube. Next the gastroscope placed oropharynx passed in the esophagus and stomach. There is no evidence of any outlet obstruction. Stomach was insufflated with air. The light reflux seen the anterior abdominal wall. The abdomen was prepped and draped usual fashion. The skin was incised. And the needles placed and stomach under direct visualization. The needle was snared. And the wires placed through the needle and the wire was snared and brought the oropharynx. T he PEG tube was placed over top the wire brought down to the stomach. The PEG tube was secured. At the 3 cm yamilet. The one-piece bolster was used. Patient tolerated procedure well.
--- NOTE | 2024-09-16 11:15 | P.PN ---
Subjective Progress Note Date: 09/16/24 SURGICAL PROGRESS NOTE CHIEF COMPLAINT: Respiratory failure HISTORY OF PRESENT ILLNESS: Patient is postop day #1 status post tracheostomy and PEG tube placement. Vital stable. WBC 14.5. Patient does have a small trach leak but holding volumes. PHYSICAL EXAM: VITAL SIGNS: Reviewed. GENERAL: Well-developed in no acute distress. HEENT: Tracheostomy site clean dry and intact. ABDOMEN: Soft. Nondistended. Nontender. PEG tube site clean dry and intact NEUROLOGIC: Alert and oriented. Cranial nerves II through XII grossly intact. ASSESSMENT: 1. Acute hypoxic respiratory failure and unable to wean from the vent 2. Severe protein calorie malnutrition 3. COPD exacerbation, CHF exacerbation and influenza A PLAN: -Patient is to start PEG tube feedings this afternoon -Consult placed for dietitian to initiate tube feedings Physician Weather Teacher note has been reviewed by physician. Signing provider agrees with the documented findings, assessment, and plan of care. Objective - Vital Signs Vital signs: Vital Signs Temp 99.6 F 09/16/24 08:00 Pulse 90 09/16/24 11:00 Resp 16 09/16/24 11:00 BP 118/76 09/16/24 11:00 Pulse Ox 96 09/16/24 11:00 FiO2 40 09/16/24 10:56 Intake & Output 09/15/24 09/16/24 09/16/24 18:59 06:59 18:59 Intake Total 506.000 254.220 599.224 Output Total 780 740 310 Balance -274.000 -485.780 289.224 Weight 78.4 kg 78.6 kg Intake: IV 356 20 80 .9NS 220 20 80 0.9 3cc/ hr a-line 36 Potassium Chloride 10 meq 100 In Water For Injection 1 100ml.bag @ 100 mls/hr IVPB Q1H [facility] Rx#: [id number] Intake, IV Titration 150.000 234.220 519.224 Amount Dexmedetomidine/0.9% NaCl 100.000 234.220 19.224 (Pmx) 400 mcg In Empty Bag 1 bag @ 0.2 MCG/KG/HR 3.733 mls/hr IV .Q24H [facility] Rx#:[id number] Potassium Chloride 20 meq 200 In Water For Injection 1 100ml.bag @ 50 mls/hr IVPB Q2H [facility] Rx#: [id number] Vancomycin 1,250 mg In 250 Sodium Chloride 0.9% 250 ml @ 125 mls/hr IVPB Q16H [facility] Rx#:[id number] cefTRIAXone 2 gm In 50 50 Sodium Chloride 0.9% 50 ml @ 100 mls/hr IVPB Q24HR [facility] Rx#:[id number] Tube Feeding 0 0 0 Other 0 Output: Urine 780 740 310 Other: Voiding Method Indwelling Catheter Indwelling Catheter Indwelling Catheter ABP, PAP, CO, CI - Last Documented Arterial Blood Pressure 166/47 - Labs CBC & Chem 7: 09/16/24 05:00 09/16/24 05:00 Labs: Abnormal Lab Results - Last 24 Hours (Table) 09/13/24 09/14/24 09/15/24 Range/Units 14:40 20:32 11:57 WBC (3.8-10.6) k/uL RBC (3.80-5.40) m/uL MCV (80.0-100.0) fL MCHC (31.0-37.0) g/dL Plt Count (150-450) k/uL Neutrophils # (1.3-7.7) k/uL Lymphocytes # (1.0-4.8) k/uL ABG pH (7.35-7.45) ABG pO2 (83-108) mmHg ABG HCO3 (21-25) mmol/L ABG Total CO2 (19-24) mmol/L Chloride (98-107) mmol/L BUN (7-17) mg/dL Glucose (74-99) mg/dL POC Glucose (mg/dL) 127 H (70-110) mg/dL Calcium (8.4-10.2) mg/dL Total Bilirubin (0.2-1.3) mg/dL Delta Bilirubin (0.0-0.2) mg/dL ALT (4-34) U/L Alkaline Phosphatase (38-126) U/L Total Protein (6.3-8.2) g/dL Albumin (3.5-5.0) g/dL Methylmalonic Acid 0.79 H (<0.40) umol/L TSH (0.465-4.680) mIU/L Free T4 (0.78-2.19) ng/dL HSV I IgG Interpret Positive A (Negative) HSV II IgG Interpret Positive A (Negative) VZV IgG Interpret Positive A (Negative) 02/24/25 02/25/25 02/25/25 Range/Units 17:44 04:45 05:00 WBC 14.5 H (3.8-10.6) k/uL RBC 3.48 L (3.80-5.40) m/uL MCV 107.8 H (80.0-100.0) fL MCHC 30.9 L (31.0-37.0) g/dL Plt Count 134 L (150-450) k/uL Neutrophils # 13.5 H (1.3-7.7) k/uL Lymphocytes # 0.3 L (1.0-4.8) k/uL ABG pH 7.47 H (7.35-7.45) ABG pO2 82 L (83-108) mmHg ABG HCO3 29 H (21-25) mmol/L ABG Total CO2 30 H (19-24) mmol/L Chloride (98-107) mmol/L BUN (7-17) mg/dL Glucose (74-99) mg/dL POC Glucose (mg/dL) 123 H (70-110) mg/dL Calcium (8.4-10.2) mg/dL Total Bilirubin (0.2-1.3) mg/dL Delta Bilirubin (0.0-0.2) mg/dL ALT (4-34) U/L Alkaline Phosphatase (38-126) U/L Total Protein (6.3-8.2) g/dL Albumin (3.5-5.0) g/dL Methylmalonic Acid (<0.40) umol/L TSH (0.465-4.680) mIU/L Free T4 (0.78-2.19) ng/dL HSV I IgG Interpret (Negative) HSV II IgG Interpret (Negative) VZV IgG Interpret (Negative) 09/16/24 09/16/24 Range/Units 05:00 05:39 WBC (3.8-10.6) k/uL RBC (3.80-5.40) m/uL MCV (80.0-100.0) fL MCHC (31.0-37.0) g/dL Plt Count (150-450) k/uL Neutrophils # (1.3-7.7) k/uL Lymphocytes # (1.0-4.8) k/uL ABG pH (7.35-7.45) ABG pO2 (83-108) mmHg ABG HCO3 (21-25) mmol/L ABG Total CO2 (19-24) mmol/L Chloride 111 H (98-107) mmol/L BUN 45 H (7-17) mg/dL Glucose 68 L (74-99) mg/dL POC Glucose (mg/dL) 149 H (70-110) mg/dL Calcium 8.0 L (8.4-10.2) mg/dL Total Bilirubin 1.7 H (0.2-1.3) mg/dL Delta Bilirubin 1.0 H (0.0-0.2) mg/dL ALT 75 H (4-34) U/L Alkaline Phosphatase 141 H (38-126) U/L Total Protein 4.9 L (6.3-8.2) g/dL Albumin 2.0 L (3.5-5.0) g/dL Methylmalonic Acid (<0.40) umol/L TSH 0.028 L (0.465-4.680) mIU/L Free T4 3.00 H (0.78-2.19) ng/dL HSV I IgG Interpret (Negative) HSV II IgG Interpret (Negative) VZV IgG Interpret (Negative) Microbiology - Last 24 Hours (Table) 09/13/24 16:42 Urine Culture - Final Urine,Voided Cyndi albicans 09/13/24 14:40 Blood Culture - Preliminary Blood 09/14/24 11:50 CSF Gram Stain - Preliminary Cerebral Spinal Fluid CSF Culture - Preliminary
[2024-09-16 11:24] LABS: Varicella zoster Virus by PCR Not detected (Not detected)
[2024-09-16 12:13] LABS: Glucose,Whole Blood 73 mg/dL (70-110)
[2024-09-16 12:57] LABS: Glucose,Whole Blood 96 mg/dL (70-110)
[2024-09-16 13:03] LABS: IgG/Albumin Index (CSF) 0.45 (0.00 - 0.77); Immunoglobulin G 986 mg/dL (700 - 1600)
--- NOTE | 2024-09-16 13:03 | P.PN ---
Subjective Progress Note Date: 09/16/24 Principal diagnosis: Acute hypoxic respiratory failure, multifactorial acute influenza A infection with acute exacerbation of COPD This is a 74-year-old female, familiar to my service, patient is known to have history of COPD, severe, history of chronic cor pulmonale, history of nonischemic cardiomyopathy and LV dysfunction as well as history of chronic atrial fibrillation maintained on Coumadin. Patient is also known to have history of moderate mitral regurgitation. Patient is normally on oxygen at 2 L/min, she is normally on diuretics, and she was very seen about a week ago in my office with worsening swelling of her lower extremities, and patient was placed on Aldactone in addition to her Lasix. Her leg swelling improved, however patient came into the ER on 08/28/2024, came in mostly with worsening shortness of breath, cough, wheezing, apparently when she was brought in by EMS she was found to be in tripod position and she was breathing quite heavy. Patient was placed on BiPAP, that seemed to improve her pulmonary status significantly on BiPAP. In the ER, patient was noted to have positive screening for acute influenza A. Last night I was notified about this patient about her shortness of breath and being BiPAP dependent, patient is known to have history of alcohol drinking, and there was also a concern about the patient going into alcohol withdrawal. Patient required some Ativan, admitted to the ICU for close monitoring. I was asked to see her in consultation. In addition to her COPD, patient had positive screening for influenza A. Today I saw the patient in the ICU, she is still on BiPAP 12/5/40%, patient is receiving Lasix, she is also on Aldactone, patient is on Tamiflu, and she is on her usual bronchodilators and on Solu-Medrol. WBC count is 11.9 hemoglobin 12.3 INR is 3.1 electrolytes are normal renal profile is normal troponin is less than 0.012 Evaluated today on 08/31/2024, patient remains in the ICU, patient is on 4 L nasal cannula, last night she was on BiPAP 12/5/40%, patient remains on bronchodilators, Lasix, Coumadin, and she is also on doxycycline. Baseline FEV1 from my office chart is 42% at best. Clearly the patient has severe underlying COPD. Patient is now on nasal cannula, had to be on BiPAP yesterday. Chest x- ray today is suggestive of interstitial edema, underlying pneumonia is felt to be less likely but not entirely ruled out. WBC count is 11.4 hemoglobin is 14.3 INR is 3.3 electrolytes are normal bicarb is 4 0 BUN is 27 creatinine 0.66 On 09/12/2024, the patient is being seen for a follow-up. Some limited improvement in level of consciousness. She is opening her eyes and responding to simple questions. Nevertheless, profoundly weak, unable to move her extremities yet. She remains of sedation for more than 4 days. Noted the patient was intubated on 09/02/2024. She is on assist-control mode of mechanical ventilation at rate of 20, tidal volume of 400, FiO2 40% with a PEEP of 5. Blo od gas showed a pH of 7.54 with a pCO2 of 44 and pO2 of 98. Noted the patient has been off propofol since 09/09/2024. Fluid balance is -711 cc. The patient remains on vital HP at a rate of 55 cc an hour. Cardiac rhythm is sinus. The white cell count is at 22 with a heme of 12.9 and a platelet count of 219. Sodium is at 139, potassium is 4.2, bicarb is at 40, BUN 70 with a creatinine of 0.7. Chest x-ray findings are essentially unchanged. The patient continues to have diffuse interstitial changes bilaterally with a small right-sided pleural effusion. I had a discussion with the family. Based on her ongoing slow recovery mentation and profound generalized weakness, she may be a good c andidate for insertion of a tracheostomy and a PEG tube. No plans for lumbar puncture for today. On 09/13/2024, patient is being seen for a follow-up. Opens her eyes spontaneously. Does not follow commands. Grimaces to painful stimulation. Motor functions are absent. Remains on mechanical ventilator assist-control mode rate of 20, tidal volume 450, FiO2 of 40% with a PEEP of 5. Blood gas sh owed pH of 7.46 with a pCO2 of 46 and pO2 of 92. Fluid balance is -711 cc over the past 24 hours. Follow-up chest x-ray from today shows stable findings. Some atelectatic change left lung base and cardiomegaly and pulm vessel congestion. Improvement in the volume status compared to earlier chest x-rays. White cell count is at 20, hemoglobin 12 and a platelet count of 187. The sodium levels at 139, potassium is at 3.4, BUN 65 with a creatinine of 0.7. Blood sugar is 170. Remains on IV cefepime. Remains on Lantus insulin for blood sugar control 30 units along with NovoLog 10 units with meals. The patient is also on a combination of metoprolol and amiodarone. Cardiac rhythm is sinus. No episodes of atrial fibrillation. She remains on low-dose norepinephrine running at 0.06 mcg/kg/min. On 09/14/2024, neurologic functions are essentially unchanged. Remains unresponsive to verbal. She grimaces and she says it is painful stimulation. No significant motor function. Remains intubated on mechanical ventilator. She was running a low-grade fever and fever workup is in progress. Repeat cultures were sent. The patient was taken off IV cefepime and switched to vancomycin. She is on assist-control mode with rate of 20, tidal volume of 450, FiO2 40% with a PEEP of 5. pH is 7.45 with a pCO2 of 43 and pO2 of 107. Chest x-ray findings are essentially stable without any significant airspace disease or consolidation. The follow-up chest x-ray from today shows some mild pulm vascular congestion otherwise no other acute abnormalities noted. Fluid balance is +566 cc over the past 24 hours. The patient is on KVO IV fluids. The patient is on vital high-protein rate of 50 cc an hour. Remains on low-dose norepinephrine at 0.02 mcg/kg/min. The white cell count is at 11.5 with a hemoglobin 11.1 and a platelet count of 136. The sodium is at 142, bicarb is at 34, BUN is 55 with a creatinine of 0.7. AST is 43, ALT is 94.Repeat CAT scan of the brain was done on 09/14/2024 and showed no acute intracranial process. There is remote left basal ganglia lacunar injury with some nonspecific white matter changes secondary to chronic microangiopathy and chronic sinus disease.The most recent procalcitonin level is at 0.27 Patient was seen today on 09/15/2024, patient remains in the ICU intubated and mechanically ventilated, apparently multiple trials for weaning failed, patient is now scheduled for tracheostomy PEG tube placement today. She will also need a PICC line. Patient is on assist-control rate of 20 tidal volume 450 FiO2 40% PEEP of 5 ABG showed a pO2 of 100 pCO2 41 pH of 7.45 hence no changes were made in her vent settings. Patient remains on Precedex at 0.8 mcg/kg/h she is on LR at 20 cc/h vital HP at goal presently on hold she is also on Rocephin and vancomycin. Urine output has been about 50 cc/h. Chest x-ray is suggestive of fluid overload with mild basilar infiltrate/atelectasis greater on the left. There is also small pleural effusions. Her WBC count today is 10.5 hemoglobin 10.9 hematocrit 33.9 electrolytes are normal BUN is 52 creatinine 0.63. Again patient is scheduled to have a PEG tube and a tracheostomy done today as she has been intubated for almost 2 weeks, and she is not ready to be weaned or extubated. Patient was seen today on 09/16/2024, remains in the ICU, intubated and mechanically ventilated. Yesterday the patient underwent uneventful tracheostomy and PEG tube placement. And has been on Precedex at 0.3 mcg/kg/h, patient is about the same overall, her mentation seems to be slightly improving and she is following simple instructions today. Ventilator almeida she is on assist-control rate of 20 tidal volume of 450 FiO2 40% and PEEP of 5. ABG today showed a pO2 of 82 pCO2 4 0 pH of 7.47. Chest x-ray is showing small left pleural effusion and atelectasis. WBC count is 14.5 hemoglobin 11.6, basic metabolic profile is normal BUN is 45 creatinine 0.7 Objective - Vital Signs Vital signs: Vital Signs Temp 99.6 F 09/16/24 08:00 Pulse 88 09/16/24 11:46 Resp 16 09/16/24 11:00 BP 118/76 09/16/24 11:00 Pulse Ox 96 09/16/24 11:00 FiO2 40 09/16/24 12:00 Intake & Output 09/15/24 09/16/24 09/16/24 18:59 06:59 18:59 Intake Total 506.000 254.220 619.224 Output Total 780 740 340 Balance -274.000 -485.780 279.224 Weight 78.4 kg 78.6 kg Intake: IV 356 20 100 .9NS 220 20 100 0.9 3cc/ hr a-line 36 Potassium Chloride 10 meq 100 In Water For Injection 1 100ml.bag @ 100 mls/hr IVPB Q1H [facility] Rx#: [id number] Intake, IV Titration 150.000 234.220 519.224 Amount Dexmedetomidine/0.9% NaCl 100.000 234.220 19.224 (Pmx) 400 mcg In Empty Bag 1 bag @ 0.2 MCG/KG/HR 3.733 mls/hr IV .Q24H [facility] Rx#:[id number] Potassium Chloride 20 meq 200 In Water For Injection 1 100ml.bag @ 50 mls/hr IVPB Q2H [facility] Rx#: [id number] Vancomycin 1,250 mg In 250 Sodium Chloride 0.9% 250 ml @ 125 mls/hr IVPB Q16H [facility] Rx#:[id number] cefTRIAXone 2 gm In 50 50 Sodium Chloride 0.9% 50 ml @ 100 mls/hr IVPB Q24HR [facility] Rx#:[id number] Tube Feeding 0 0 0 Other 0 Output: Urine 780 740 340 Other: Voiding Method Indwelling Catheter Indwelling Catheter Indwelling Catheter ABP, PAP, CO, CI - Last Documented Arterial Blood Pressure 166/47 - Exam GENERAL EXAM: Revealed 72-year-old female intubated, arousable, follows simple instructions HEAD: Normocephalic. EYES: PERRLA, EOMI, NOSE: Clear with pink turbinates. THROAT: Tracheostomy seems to be intact moist mucous membranes NECK: No masses, no JVD. CHEST: No chest wall deformity. LUNGS: Equal air entry with few, no rhonchi no wheezes CVS: S1 and S2 normal with no audible murmur, regular rhythm. ABDOMEN: No hepatosplenomegaly, normal bowel sounds, no guarding or rigidity. SKIN: Areas of ecchymosis and bruising. Weeping skin noted mostly on the forearms specially right forearm area CENTRAL NERVOUS SYSTEM: Arousable, off sedation, follows very simple instructions but seems to be generally weak EXTREMITIES: Right radial arterial line in place. Trace of bipedal edema - Labs CBC & Chem 7: 09/16/24 05:00 09/16/24 05:00 Labs: Abnormal Lab Results - Last 24 Hours (Table) 09/13/24 09/14/24 09/15/24 Range/Units 14:40 20:32 05:07 WBC (3.8-10.6) k/uL RBC (3.80-5.40) m/uL MCV (80.0-100.0) fL MCHC (31.0-37.0) g/dL Plt Count (150-450) k/uL Neutrophils # (1.3-7.7) k/uL Lymphocytes # (1.0-4.8) k/uL ABG pH (7.35-7.45) ABG pO2 (83-108) mmHg ABG HCO3 (21-25) mmol/L ABG Total CO2 (19-24) mmol/L Chloride (98-107) mmol/L BUN (7-17) mg/dL Glucose (74-99) mg/dL POC Glucose (mg/dL) (70-110) mg/dL Calcium (8.4-10.2) mg/dL Total Bilirubin (0.2-1.3) mg/dL Delta Bilirubin (0.0-0.2) mg/dL ALT (4-34) U/L Alkaline Phosphatase (38-126) U/L Total Protein (6.3-8.2) g/dL Albumin (3.5-5.0) g/dL Methylmalonic Acid 0.79 H (<0.40) umol/L TSH (0.465-4.680) mIU/L Free T4 (0.78-2.19) ng/dL HSV I IgG Interpret Positive A (Negative) HSV II IgG Interpret Positive A (Negative) HSV I DNA PCR DETECTED A (Not detected) VZV IgG Interpret Positive A (Negative) 09/15/24 09/16/24 09/16/24 Range/Units 17:44 04:45 05:00 WBC 14.5 H (3.8-10.6) k/uL RBC 3.48 L (3.80-5.40) m/uL MCV 107.8 H (80.0-100.0) fL MCHC 30.9 L (31.0-37.0) g/dL Plt Count 134 L (150-450) k/uL Neutrophils # 13.5 H (1.3-7.7) k/uL Lymphocytes # 0.3 L (1.0-4.8) k/uL ABG pH 7.47 H (7.35-7.45) ABG pO2 82 L (83-108) mmHg ABG HCO3 29 H (21-25) mmol/L ABG Total CO2 30 H (19-24) mmol/L Chloride (98-107) mmol/L BUN (7-17) mg/dL Glucose (74-99) mg/dL POC Glucose (mg/dL) 123 H (70-110) mg/dL Calcium (8.4-10.2) mg/dL Total Bilirubin (0.2-1.3) mg/dL Delta Bilirubin (0.0-0.2) mg/dL ALT (4-34) U/L Alkaline Phosphatase (38-126) U/L Total Protein (6.3-8.2) g/dL Albumin (3.5-5.0) g/dL Methylmalonic Acid (<0.40) umol/L TSH (0.465-4.680) mIU/L Free T4 (0.78-2.19) ng/dL HSV I IgG Interpret (Negative) HSV II IgG Interpret (Negative) HSV I DNA PCR (Not detected) VZV IgG Interpret (Negative) 09/16/24 09/16/24 Range/Units 05:00 05:39 WBC (3.8-10.6) k/uL RBC (3.80-5.40) m/uL MCV (80.0-100.0) fL MCHC (31.0-37.0) g/dL Plt Count (150-450) k/uL Neutrophils # (1.3-7.7) k/uL Lymphocytes # (1.0-4.8) k/uL ABG pH (7.35-7.45) ABG pO2 (83-108) mmHg ABG HCO3 (21-25) mmol/L ABG Total CO2 (19-24) mmol/L Chloride 111 H (98-107) mmol/L BUN 45 H (7-17) mg/dL Glucose 68 L (74-99) mg/dL POC Glucose (mg/dL) 149 H (70-110) mg/dL Calcium 8.0 L (8.4-10.2) mg/dL Total Bilirubin 1.7 H (0.2-1.3) mg/dL Delta Bilirubin 1.0 H (0.0-0.2) mg/dL ALT 75 H (4-34) U/L Alkaline Phosphatase 141 H (38-126) U/L Total Protein 4.9 L (6.3-8.2) g/dL Albumin 2.0 L (3.5-5.0) g/dL Methylmalonic Acid (<0.40) umol/L TSH 0.028 L (0.465-4.680) mIU/L Free T4 3.00 H (0.78-2.19) ng/dL HSV I IgG Interpret (Negative) HSV II IgG Interpret (Negative) HSV I DNA PCR (Not detected) VZV IgG Interpret (Negative) Microbiology - Last 24 Hours (Table) 09/13/24 16:42 Urine Culture - Final Urine,Voided Cyndi albicans 09/13/24 14:40 Blood Culture - Preliminary Blood 09/14/24 11:50 CSF Gram Stain - Preliminary Cerebral Spinal Fluid CSF Culture - Preliminary Assessment and Plan Assessment: Impression:Acute on chronic hypoxic respiratory failure secondary to a COPD exacerbation, systolic CHF exacerbation, influenza A. Acute exacerbation of COPD, remains on bronchodilators Acute on chronic systolic congestive heart failure. The patient has impairment of the LV function with an ejection fraction of 35%, nonischemic cardiomyopathy with moderate degree of mitral regurgitation. Bilateral pneumonia, likely superinfection following influenza A infection and t he patient has positive cultures with Streptococcus pneumonia and Klebsiella oxytoca. Leukocytosis, secondary to above Atrial fibrillation with rapid ventricular response, presently in normal sinus rhythm, patient received cardioversion on 09/07 and she is on amiodarone History of alcoholism Acute metabolic encephalopathy, improving Moderate mitral regurgitation Nonischemic cardiomyopathy, EF of 35% Hypertension Dyslipidemia Hypothyroidism, thyroid function tests were noted, free T4 is elevated Status post tracheostomy and PEG tube placement on 09/15/2024 Recommendation: Continue ventilatory support, however the patient may be given a trial of pressure support and CPAP today, started with a pressure support of 12 Continue antibiotics Continue Precedex and avoid sedatives and narcotics Could resume her anticoagulation therapy now that she had her PEG and tracheostomy done. Continue GI and DVT prophylaxis Continue to monitor mentation Continue Levemir insulin and sliding scale insulin Continue bronchodilators Patient finished full course of Tamiflu Continue diuretics Continue amiodarone Restart nutritional support via PEG tube today Patient remains critically ill Critical care time is 33 minutes Time with Patient: Greater than 30
[2024-09-16] MEDS: ACETAMINOPHEN IV (For NPO) 1,000 MG in EMPTY BAG 1 BAG IVPB ONE (13:16)
--- NOTE | 2024-09-16 13:55 | P.PN ---
Subjective PROGRESS NOTE The patient is a 74-year-old female with known history of COPD, nonischemic cardiomyopathy, permanent atrial fibrillation with attempted cardioversion in May 2023 who presented with progressive dyspnea and worsening peripheral ed viktoriya, was diagnosed with influenza A infection. She had worsening of her respiratory status requiring mechanical ventilation. She remains intubated, good urine output and tolerating feeding. She has no evidence of malignant arrhythmia. Her echocardiogram and admission showed an ejection fraction of 35% with mild to moderate tricuspid regurgitation and severe pulmonary hypertension that has been documented in the past. She is in sinus mechanism at this time. She underwent CT scan of the head that showed no evidence of acute events. September 09: The patient remains intubated, not following verbal command. She is in sinus mechanism on no vasopressors. Her urinary output has been good. She has been evaluated by the neurology service for her mental status and felt probably to have metabolic encephalopathy. There is no evidence of recurrent atrial fibrillation. She continues to be in sinus mechanism. September 10: The patient remains intubated and sedated, in sinus mechanism. Hemodynamically stable. She had an echocardiogram that showed an ejection fraction of 40 to 45% with moderate severe pulmonary hypertension and dilated right ventricle and mild to moderate tricuspid regurgitation. She remains unresponsive and is being evaluated by the neurology service September 11: The patient remains intubated, not following command clearly. She continues to be in sinus mechanism. She continues to be of anticoagulation because of possible lumbar puncture today. Hemodynamically she is stable. Her urinary output is stable. She had no evidence of ventricular tachyarrhythmia. Her chest x-ray shows no significant changes. September 12: The patient remains intubated but is opening her eyes to verbal stimulation. She continues to be in sinus mechanism, hemodynamically stable. There is no evidence of ventricular ectopic activity. Her chest x-ray shows evidence of right-sided effusion. She did not undergo a LP. She continues to be off anticoagulation. September 13: The patient remains intubated but more awake earlier, she has been sedated at this point. The plan is to proceed with PEG tube and tracheostomy on Sunday. She is on subcu heparin. Hemodynamically she is requiring low-dose norepinephrine. There is no evidence of atrial fibrillation. Her urinary outpu t has been stable. : The patient is intubated but following verbal command, she continues to be in sinus mechanism, hemodynamically stable, urine output has been good. She is on the lower dose of norepinephrine. She is scheduled to undergo an LP today and a trach and a PEG tomorrow. Her anticoagulation remains on hold. 09/15 Patient seen and examined. Patient remains on ventilator with FiO2 40% and PEEP of 5. Patient on Precedex as well as IV fluids at 20 mL per hour. Normal sinus rhythm. Hemoglobin 10.9, BUN 52, creatinine 0.6. 09/16 patient seen and examined. Remains intubated and sedated. Underwent successful tracheostomy and PEG tube placement yesterday. White blood cell count 14.5, hemoglobin 11.6, creatinine 0.7. PHYSICAL EXAMINATION: Blood pressure 132/50 heart rate 68, intubated, following command LUNGS: Clear to auscultation anteriorly HEART: Regular rate and rhythm, S1, S2. No S3. Systolic ejection murmur ABDOMEN: Soft, positive bowel sounds, no organomegaly EXTREMETIES: No edema IMPRESSION: 1. Respiratory failure with COPD exacerbation, influenza A and history of CHF with reduced ejection fraction 2. Chronic cardiomyopathy, nonischemic, 3. Atrial fibrillation, maintaining sinus mechanism, status post cardioversion 4. Prior history of alcohol intake 5. Streptococcus pneumonia with leukocytosis, improving 6. Prior history of hypertension 7. Metabolic encephalopathy., Improving PLAN: Continue with amiodarone as well as heart failure regimen as tolerated. Add anticoagulation when able currently on heparin subcu. Continue current s upportive care. Further recommendations to follow. Objective - Vital Signs Vital signs: Vital Signs Temp 100.9 F H 09/16/24 13:00 Pulse 92 09/16/24 13:00 Resp 26 H 09/16/24 13:00 BP 133/58 09/16/24 13:00 Pulse Ox 96 09/16/24 13:00 FiO2 40 09/16/24 12:00 Intake & Output 09/15/24 09/16/24 09/16/24 18:59 06:59 18:59 Intake Total 506.000 254.220 639.224 Output Total 780 740 370 Balance -274.000 -485.780 269.224 Weight 78.4 kg 78.6 kg Intake: IV 356 20 120 .9NS 220 20 120 0.9 3cc/ hr a-line 36 Potassium Chloride 10 meq 100 In Water For Injection 1 100ml.bag @ 100 mls/hr IVPB Q1H [facility] Rx#: [id number] Intake, IV Titration 150.000 234.220 519.224 Amount Dexmedetomidine/0.9% NaCl 100.000 234.220 19.224 (Pmx) 400 mcg In Empty Bag 1 bag @ 0.2 MCG/KG/HR 3.733 mls/hr IV .Q24H [facility] Rx#:[id number] Potassium Chloride 20 meq 200 In Water For Injection 1 100ml.bag @ 50 mls/hr IVPB Q2H [facility] Rx#: [id number] Vancomycin 1,250 mg In 250 Sodium Chloride 0.9% 250 ml @ 125 mls/hr IVPB Q16H [facility] Rx#:[id number] cefTRIAXone 2 gm In 50 50 Sodium Chloride 0.9% 50 ml @ 100 mls/hr IVPB Q24HR [facility] Rx#:[id number] Tube Feeding 0 0 0 Other 0 Output: Urine 780 740 370 Other: Voiding Method Indwelling Catheter Indwelling Catheter Indwelling Catheter ABP, PAP, CO, CI - Last Documented Arterial Blood Pressure 166/47 - Labs CBC & Chem 7: 09/16/24 05:00 09/16/24 05:00 Labs: Abnormal Lab Results - Last 24 Hours (Table) 09/13/24 09/14/24 09/15/24 Range/Units 14:40 11:50 05:07 WBC (3.8-10.6) k/uL RBC (3.80-5.40) m/uL MCV (80.0-100.0) fL MCHC (31.0-37.0) g/dL Plt Count (150-450) k/uL Neutrophils # (1.3-7.7) k/uL Lymphocytes # (1.0-4.8) k/uL ABG pH (7.35-7.45) ABG pO2 (83-108) mmHg ABG HCO3 (21-25) mmol/L ABG Total CO2 (19-24) mmol/L Chloride (98-107) mmol/L BUN (7-17) mg/dL Glucose (74-99) mg/dL POC Glucose (mg/dL) (70-110) mg/dL Calcium (8.4-10.2) mg/dL Total Bilirubin (0.2-1.3) mg/dL Delta Bilirubin (0.0-0.2) mg/dL ALT (4-34) U/L Alkaline Phosphatase (38-126) U/L Total Protein (6.3-8.2) g/dL Albumin (3.5-5.0) g/dL Methylmalonic Acid 0.79 H (<0.40) umol/L TSH (0.465-4.680) mIU/L Free T4 (0.78-2.19) ng/dL Serum Albumin 1,570 L (3500 - 5200) mg/dL HSV I DNA PCR DETECTED A (Not detected) 09/15/24 09/16/24 09/16/24 Range/Units 17:44 04:45 05:00 WBC 14.5 H (3.8-10.6) k/uL RBC 3.48 L (3.80-5.40) m/uL MCV 107.8 H (80.0-100.0) fL MCHC 30.9 L (31.0-37.0) g/dL Plt Count 134 L (150-450) k/uL Neutrophils # 13.5 H (1.3-7.7) k/uL Lymphocytes # 0.3 L (1.0-4.8) k/uL ABG pH 7.47 H (7.35-7.45) ABG pO2 82 L (83-108) mmHg ABG HCO3 29 H (21-25) mmol/L ABG Total CO2 30 H (19-24) mmol/L Chloride (98-107) mmol/L BUN (7-17) mg/dL Glucose (74-99) mg/dL POC Glucose (mg/dL) 123 H (70-110) mg/dL Calcium (8.4-10.2) mg/dL Total Bilirubin (0.2-1.3) mg/dL Delta Bilirubin (0.0-0.2) mg/dL ALT (4-34) U/L Alkaline Phosphatase (38-126) U/L Total Protein (6.3-8.2) g/dL Albumin (3.5-5.0) g/dL Methylmalonic Acid (<0.40) umol/L TSH (0.465-4.680) mIU/L Free T4 (0.78-2.19) ng/dL Serum Albumin (3500 - 5200) mg/dL HSV I DNA PCR (Not detected) 09/16/24 09/16/24 Range/Units 05:00 05:39 WBC (3.8-10.6) k/uL RBC (3.80-5.40) m/uL MCV (80.0-100.0) fL MCHC (31.0-37.0) g/dL Plt Count (150-450) k/uL Neutrophils # (1.3-7.7) k/uL Lymphocytes # (1.0-4.8) k/uL ABG pH (7.35-7.45) ABG pO2 (83-108) mmHg ABG HCO3 (21-25) mmol/L ABG Total CO2 (19-24) mmol/L Chloride 111 H (98-107) mmol/L BUN 45 H (7-17) mg/dL Glucose 68 L (74-99) mg/dL POC Glucose (mg/dL) 149 H (70-110) mg/dL Calcium 8.0 L (8.4-10.2) mg/dL Total Bilirubin 1.7 H (0.2-1.3) mg/dL Delta Bilirubin 1.0 H (0.0-0.2) mg/dL ALT 75 H (4-34) U/L Alkaline Phosphatase 141 H (38-126) U/L Total Protein 4.9 L (6.3-8.2) g/dL Albumin 2.0 L (3.5-5.0) g/dL Methylmalonic Acid (<0.40) umol/L TSH 0.028 L (0.465-4.680) mIU/L Free T4 3.00 H (0.78-2.19) ng/dL Serum Albumin (3500 - 5200) mg/dL HSV I DNA PCR (Not detected) Microbiology - Last 24 Hours (Table) 09/13/24 16:42 Urine Culture - Final Urine,Voided Cyndi albicans 09/13/24 14:40 Blood Culture - Preliminary Blood 09/14/24 11:50 CSF Gram Stain - Preliminary Cerebral Spinal Fluid CSF Culture - Preliminary
--- NOTE | 2024-09-16 15:16 | P.PN ---
Subjective Progress Note Date: 09/16/24 Principal diagnosis: Reason for follow-up fever pneumonia Patient is a 74-year-old female with a past medical history significant for hypertension COPD heart failure, atrial fibrillation presenting to the hospital on 08/28/2024 for evaluation of increasing shortness of breath, patient did require intubation during this hospital stay and sputum culture have been positive initially for strep pneumo subsequently Klebsiella infectious he consulted because of persistent fever. Patient did have a trach and PEG procedure completed on 09/15/2024. On today's evaluation that is 09/16/2024, Patient did have a low-grade fever 100.9 this afternoon patient is currently hemodynamically stable not requiring any pressor support remains to be on the vent with 40% FiO2. Patient white count is 14.5 creatinine 0.70 urine culture with Cyndi albicans Objective - Vital Signs Vital signs: Vital Signs Temp 100.9 F H 09/16/24 13:00 Pulse 94 09/16/24 15:00 Resp 25 H 09/16/24 15:00 BP 114/64 09/16/24 15:00 Pulse Ox 95 09/16/24 15:00 FiO2 40 09/16/24 10:56 Intake & Output 09/15/24 09/16/24 09/16/24 18:59 06:59 18:59 Intake Total 506.000 254.220 684.915 Output Total 780 740 470 Balance -274.000 -485.780 214.915 Weight 78.4 kg 78.6 kg Intake: IV 356 20 160 .9NS 220 20 160 0.9 3cc/ hr a-line 36 Potassium Chloride 10 meq 100 In Water For Injection 1 100ml.bag @ 100 mls/hr IVPB Q1H [facility] Rx#: [id number] Intake, IV Titration 150.000 234.220 524.915 Amount Dexmedetomidine/0.9% NaCl 100.000 234.220 24.915 (Pmx) 400 mcg In Empty Bag 1 bag @ 0.2 MCG/KG/HR 3.733 mls/hr IV .Q24H [facility] Rx#:[id number] Potassium Chloride 20 meq 200 In Water For Injection 1 100ml.bag @ 50 mls/hr IVPB Q2H [facility] Rx#: [id number] Vancomycin 1,250 mg In 250 Sodium Chloride 0.9% 250 ml @ 125 mls/hr IVPB Q16H [facility] Rx#:[id number] cefTRIAXone 2 gm In 50 50 Sodium Chloride 0.9% 50 ml @ 100 mls/hr IVPB Q24HR [facility] Rx#:[id number] Tube Feeding 0 0 0 Other 0 Output: Urine 780 740 470 Other: Voiding Method Indwelling Catheter Indwelling Catheter Indwelling Catheter ABP, PAP, CO, CI - Last Documented Arterial Blood Pressure 166/47 - Exam GENERAL DESCRIPTION: An elderly female intubated through the trach on the vent RESPIRATORY SYSTEM: Unlabored breathing , decreased breath sounds at bases HEART: S1 S2 regular rate and rhythm , ABDOMEN: Soft , no tenderness EXTREMITIES: No edema feet - Labs CBC & Chem 7: 09/16/24 05:00 09/16/24 05:00 Labs: Abnormal Lab Results - Last 24 Hours (Table) 09/13/24 09/14/24 09/15/24 Range/Units 14:40 11:50 05:07 WBC (3.8-10.6) k/uL RBC (3.80-5.40) m/uL MCV (80.0-100.0) fL MCHC (31.0-37.0) g/dL Plt Count (150-450) k/uL Neutrophils # (1.3-7.7) k/uL Lymphocytes # (1.0-4.8) k/uL ABG pH (7.35-7.45) ABG pO2 (83-108) mmHg ABG HCO3 (21-25) mmol/L ABG Total CO2 (19-24) mmol/L Chloride (98-107) mmol/L BUN (7-17) mg/dL Glucose (74-99) mg/dL POC Glucose (mg/dL) (70-110) mg/dL Calcium (8.4-10.2) mg/dL Total Bilirubin (0.2-1.3) mg/dL Delta Bilirubin (0.0-0.2) mg/dL ALT (4-34) U/L Alkaline Phosphatase (38-126) U/L Total Protein (6.3-8.2) g/dL Albumin (3.5-5.0) g/dL Methylmalonic Acid 0.79 H (<0.40) umol/L TSH (0.465-4.680) mIU/L Free T4 (0.78-2.19) ng/dL Serum Albumin 1,570 L (3500 - 5200) mg/dL HSV I DNA PCR DETECTED A (Not detected) 09/15/24 09/16/24 09/16/24 Range/Units 17:44 04:45 05:00 WBC 14.5 H (3.8-10.6) k/uL RBC 3.48 L (3.80-5.40) m/uL MCV 107.8 H (80.0-100.0) fL MCHC 30.9 L (31.0-37.0) g/dL Plt Count 134 L (150-450) k/uL Neutrophils # 13.5 H (1.3-7.7) k/uL Lymphocytes # 0.3 L (1.0-4.8) k/uL ABG pH 7.47 H (7.35-7.45) ABG pO2 82 L (83-108) mmHg ABG HCO3 29 H (21-25) mmol/L ABG Total CO2 30 H (19-24) mmol/L Chloride (98-107) mmol/L BUN (7-17) mg/dL Glucose (74-99) mg/dL POC Glucose (mg/dL) 123 H (70-110) mg/dL Calcium (8.4-10.2) mg/dL Total Bilirubin (0.2-1.3) mg/dL Delta Bilirubin (0.0-0.2) mg/dL ALT (4-34) U/L Alkaline Phosphatase (38-126) U/L Total Protein (6.3-8.2) g/dL Albumin (3.5-5.0) g/dL Methylmalonic Acid (<0.40) umol/L TSH (0.465-4.680) mIU/L Free T4 (0.78-2.19) ng/dL Serum Albumin (3500 - 5200) mg/dL HSV I DNA PCR (Not detected) 09/16/24 09/16/24 Range/Units 05:00 05:39 WBC (3.8-10.6) k/uL RBC (3.80-5.40) m/uL MCV (80.0-100.0) fL MCHC (31.0-37.0) g/dL Plt Count (150-450) k/uL Neutrophils # (1.3-7.7) k/uL Lymphocytes # (1.0-4.8) k/uL ABG pH (7.35-7.45) ABG pO2 (83-108) mmHg ABG HCO3 (21-25) mmol/L ABG Total CO2 (19-24) mmol/L Chloride 111 H (98-107) mmol/L BUN 45 H (7-17) mg/dL Glucose 68 L (74-99) mg/dL POC Glucose (mg/dL) 149 H (70-110) mg/dL Calcium 8.0 L (8.4-10.2) mg/dL Total Bilirubin 1.7 H (0.2-1.3) mg/dL Delta Bilirubin 1.0 H (0.0-0.2) mg/dL ALT 75 H (4-34) U/L Alkaline Phosphatase 141 H (38-126) U/L Total Protein 4.9 L (6.3-8.2) g/dL Albumin 2.0 L (3.5-5.0) g/dL Methylmalonic Acid (<0.40) umol/L TSH 0.028 L (0.465-4.680) mIU/L Free T4 3.00 H (0.78-2.19) ng/dL Serum Albumin (3500 - 5200) mg/dL HSV I DNA PCR (Not detected) Microbiology - Last 24 Hours (Table) 09/13/24 16:42 Urine Culture - Final Urine,Voided Cyndi albicans 09/13/24 14:40 Blood Culture - Preliminary Blood 09/14/24 11:50 CSF Gram Stain - Preliminary Cerebral Spinal Fluid CSF Culture - Preliminary Assessment and Plan (1) Sepsis Current Visit: Yes Status: Acute Code(s): A41.9 - SEPSIS, UNSPECIFIED ORGANISM SNOMED Code(s): 89589298 (2) Pneumonia Current Visit: No Status: Acute Code(s): J18.9 - PNEUMONIA, UNSPECIFIED ORGANISM SNOMED Code(s): 327471761 (3) UTI (urinary tract infection) Current Visit: Yes Status: Acute Code(s): N39.0 - URINARY TRACT INFECTION, SITE NOT SPECIFIED SNOMED Code(s): 94590350 Plan: 1patient with sepsis in this patient who did have fever elevated white count in this patient with acute respiratory failure requiring intubation and has been the hospital for almost 16 days before initial consultation source of the persistent fever could be related to the multiple lines the patient has including supplement as to outlines and will need to cover for the gram-positive skin yuliya to be the likely pathogen 2-blood culture has been negative so far urine is growing Cyndi 3-patient did have low-grade fever and white count slightly up we will add Dif lucan to cover for the UTI and see clinical response continue with the vancomycin and Rocephin Dictation was produced using [employer] dictation software. please excuse any grammatical, word or spelling errors. Time with Patient: Less than 30
[2024-09-16] MEDS: FLUCONAZOLE 100 MG TAB PO SCH (16:21)
[2024-09-16] MEDS: valACYclovir HCL 1,000 MG TABLET PO SCH (16:21)
[2024-09-16 17:08] LABS: Glucose,Whole Blood 72 mg/dL (70-110)
[2024-09-16 20:28] LABS: Glucose,Whole Blood 84 mg/dL (70-110)
[2024-09-16 23:29] LABS: Glucose,Whole Blood 83 mg/dL (70-110)
[2024-09-17 05:39] LABS: ABG Base Excess 3.1 mmol/L; ABG HCO3 28 mmol/L (21-25); ABG PCO2 41 mmHg (35-45); ABG PH 7.44 (7.35-7.45); ABG PO2 79 mmHg (83-108); ABG TCO2 29 mmol/L (19-24); Allen Test Performed? Yes
[2024-09-17 05:42] LABS: Glucose,Whole Blood 102 mg/dL (70-110)
[2024-09-17 06:13] LABS: African American GFR (CKD) >90 (>60 ml/min/1.73 sqM); Anion Gap 4 mmol/L; Blood Urea Nitrogen 43 mg/dL (7-17); Calcium 8.1 mg/dL (8.4-10.2); Carbon Dioxide 30 mmol/L (22-30); Chloride 114 mmol/L (98-107); Glucose 101 mg/dL (74-99); Non-African American GFR(CKD) 89 (>60 ml/min/1.73 sqM); Potassium 3.4 mmol/L (3.5-5.1); Sodium 148 mmol/L (137-145)
[2024-09-17] MEDS: LEVOTHYROXINE 50 MCG TAB PO SCH (06:37)
[2024-09-17] MEDS: POTASSIUM BICARBONATE/CIT AC 20 MEQ TABLET.EFF NG-TUBE SCH (06:37)
--- NOTE | 2024-09-17 06:54 | XR ---
EXAMINATION TYPE: XR chest 1V portable DATE OF EXAM: 09/17/2024 5:14 AM COMPARISON: 09/16/2024 CLINICAL INDICATION: Female, 74 years old with history of mechanical ventilation, TECHNIQUE: XR chest 1V portable view(s) obtained. FINDINGS: The heart size is mildly prominent . The pulmonary vasculature is prominent. Diffuse mild increased lung markings are present. Correlate for pulmonary edema and congestive heart failure. Small left pleural effusion and left basilar infiltrate present Tracheostomy tube is in the midline. Right-sided PICC line present with the tip in the proximal right atrium. IMPRESSION: 1. Clinical correlation recommended for mild congestive heart failure. 2. Small left pleural effusion. 3. Lines and catheters discussed above. [facility], , 09/17/2024 6:52 AM
[2024-09-17 07:08] LABS: Basophils % (A) 0 %; Eosinophils # (A) 0.2 k/uL (0-0.7); Eosinophils % (A) 1 %; HCT 34.6 % (34.0-46.0); HGB 10.8 gm/dL (11.4-16.0); Hypochromasia Slight; Lymphocytes # (A) 0.5 k/uL (1.0-4.8); Lymphocytes % (A) 4 %; MCH 33.6 pg (25.0-35.0); MCHC 31.1 g/dL (31.0-37.0); MCV 107.9 fL (80.0-100.0); Macrocytosis Marked; Monocytes # (A) 0.5 k/uL (0-1.0); Monocytes % (A) 4 %; Neutrophils # (A) 10.4 k/uL (1.3-7.7); Neutrophils % (A) 89 %; RDW 14.6 % (11.5-15.5); WBC 11.8 k/uL (3.8-10.6)
[2024-09-17 07:12] LABS: Platelet Count 115 k/uL (150-450)
[2024-09-17 08:31] VITALS: TEMP 98.4
[2024-09-17 11:34] LABS: Glucose,Whole Blood 143 mg/dL (70-110)
[2024-09-17] MEDS: DEXTROSE 5% IN WATER 1,000 ML IV SCH (11:43)
--- NOTE | 2024-09-17 12:07 | P.DS ---
Providers Date of admission: 08/28/24 20:52 Attending physician: Kameron Hernandez MD Consults: 08/28/24 20:49 Consult Physician Routine Consulting Provider: [facility] Consult Reason/Comments: Pulmonary edema Do you want consulting provider notified?: Yes 08/29/24 21:52 Consult Physician Urgent Consulting Provider: Anderson Mix Consult Reason/Comments: COPD Do you want consulting provider notified?: Yes 08/29/24 23:47 Consult Physician Stat Consulting Provider: Anderson Mix Consult Reason/Comments: CHF, FLU A Do you want consulting provider notified?: Already Contacted 09/08/24 09:28 Consult Physician Routine Consulting Provider: Jethro Fox Consult Reason/Comments: enceph. Do you want consulting provider notified?: Yes 09/12/24 10:37 Consult Physician Routine Consulting Provider: Jaime Tobin Consult Reason/Comments: Tracheostomy and peg tube placement Do you want consulting provider notified?: Yes 09/13/24 13:53 Consult Physician Routine Consulting Provider: Hosea Vegas Consult Reason/Comments: AMS, spiking temps Do you want consulting provider notified?: Yes 09/14/24 11:21 Consult Physician Routine Consulting Provider: Randi Desouza Consult Reason/Comments: LP Do you want consulting provider notified?: Yes Primary care physician: Dusty Dumas Hospital Course: Discharge Diagnosis: Septic Shock with Acute on chronic hypoxic respiratory failure multifactorial, Influenza A Klebsiella and Strep Pneumo Community Acquired Pneumonia Acute COPD exacerbation Acute on chronic HFrEF requiring intubation Status post tracheostomy and PEG tube placement on 09/15/2024 Severe pulmonary hypertension, WHO class II Moderate mitral regurgitation Acute toxic metabolic encephalopathy 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 Initially, treated for management of acute on chronic hypoxic respiratory failure secondary to COPD exacerbation, influenza A, acute HFrEF exacerbation. Cardiology consulted. Started on IV Lasix, Coumadin continued, TTE ordered. Severe LV systolic dysfunction with EF 35%, severe pulmonary hypertension. Added Farxiga to her current medical regimen. Pt became progressively dyspnea and hallucinations, warranting BiPAP. Encephalopathy was felt secondary to ETOH withdrawal, but pt became progressively obtunded and intubated on 09/02. Also went into A-Fib with RVR, successfully cardioverted on 09/03.Started on amiodarone 400 mg p.o. twice daily, dose decreased to 200 mg twice daily 09/10; r/t hyperthyroidism below - AIT 1 and 2 are very unlikely given timing, repeat in 6 weeks recommended. Started on Eliquis 5 twice daily. Sedation holidays were failed on 09/05, and after reattempt at holiday on 09/06, pt was noted the following day to be non-responsive, no withdrawal to pain, verbal stimuli, and had horizontal nystagmus. Brain CT showed no evidence of acute intracranial pathology. Neurology was consulted on 09/08 who felt that neurological changes were secondary to toxic metabolic encephalopathy. EEG completed same day confirmed findings of generalized background slowing c/w metabolic encephalopathy vs diffuse structural brain abnormality. Considerations were made for LP and Eliquis was held. Pt continued spiking fevers again starting on 09/09, leukocytosis worsened, repeat blood cultures were ordered, and started patient on broad-spectrum antibiotics with vancomycin and cefepime. Sputum cultures ultimately grew klebsiella and strep pneumo. Between 09/10-09/13, patient did note having modest improvement in neurological exam, but still extremely quadriparetic. Cefepime discontinued secondary to possible cefepime neurotoxicity; vancomycin initiated with ID consultation; ceftriaxone initiated with ID consultation. Diflucan added, for UTI, urine culture growing Yarelis HSV/Varicella IgG/IgM are +/pending and +/pending; PCR is pending. LP: 4000+ RBCs, 16 WBCs, 90+% PMNs; glucose 58, total protein 36 gram stain shows PMNs, but no organisms, and cx is NGTD, pending comp viral panel, MS panel. Tracheostomy and PEG placement 09/15/2024, nutritions started, patient tolerated. Patient will be disharged to LT[facility]. Fani eiluqis on hold after tracheostmy. Can resume 09/18 if no bleeding. VTE profilaxis with sq heparin. Patient seen and examined at bedside, patient denied abdominal pain, shortness of breath, chest pain, she communicates by nodding yes or no Vital signs reviewed and stable. General: [Chronically ill-appearing Derm: [warm], [dry] Head: [atraumatic], [normocephalic], [symmetric] tracheostomy tube in place Eyes: [EOMI], [no lid lag], [anicteric sclera] Mouth: [Mucous membranes Cardiovascular: [S1S2 reg], Lungs: [CTA bilateral], [no rhonchi, no rales] , [no accessory muscle use] Abdominal: [soft], [ nontender to palpation], [no guarding], [no appreciable organomegaly] Ext: [no gross muscle atrophy], [lower extremity edema, improving], trace bilateral pedal edema [no contractures] Neuro: [ CN II-XI grossly intact], [no focal neuro deficits], quadriparesis Psych: [Alert], [follows simple commands Harris Catheter in place A total of 50 minutes of time were spent preparing this complex discharge summary. Patient was discharged on 09/17. Plan - Discharge Summary Discharge Rx Participant: Yes New Discharge Prescriptions: No Action Furosemide [Lasix] 20 mg PO DAILY #90 tab Metoprolol Tartrate [Lopressor] 50 mg PO BID #180 tab Warfarin [Coumadin] 5 mg PO MOTH Amiodarone [Cordarone] 100 mg PO DAILY Levothyroxine Sodium [Synthroid] 100 mcg PO DAILY Losartan [Cozaar] 12.5 mg PO DAILY #90 tab Albuterol Inhaler [Ventolin Hfa Inhaler] 2 puff INHALATION RT-Q4H Warfarin [Coumadin] 2.5 mg PO SUTUWEFRSA Budesonide/Glycopyr/Formoterol [Breztri Aerosphere Inhaler] 2 puff INHALATION RT-BID Spironolactone [Aldactone] 25 mg PO DAILY Ipratropium-Albuterol Nebulize [Duoneb 0.5 mg-3 mg/3 ml Soln] 3 ml INHALATION RT-QID Discharge Medication List Furosemide [Lasix] 20 mg PO DAILY #90 tab 06/21/23 [Rx] Losartan [Cozaar] 12.5 mg PO DAILY #90 tab 06/21/23 [Rx] Metoprolol Tartrate [Lopressor] 50 mg PO BID #180 tab 06/21/23 [Rx] Albuterol Inhaler [Ventolin Hfa Inhaler] 2 puff INHALATION RT-Q4H 08/17/23 [History] Warfarin [Coumadin] 2.5 mg PO SUTUWEFRSA 08/17/23 [History] Warfarin [Coumadin] 5 mg PO MOTH 10/31/23 [History] Amiodarone [Cordarone] 100 mg PO DAILY 08/28/24 [History] Budesonide/Glycopyr/Formoterol [Breztri Aerosphere Inhaler] 2 puff INHALATION RT-BID 08/28/24 [History] Ipratropium-Albuterol Nebulize [Duoneb 0.5 mg-3 mg/3 ml Soln] 3 ml INHALATION RT-QID 08/28/24 [History] Levothyroxine Sodium [Synthroid] 100 mcg PO DAILY 08/28/24 [History] Spironolactone [Aldactone] 25 mg PO DAILY 08/28/24 [History] Follow up Appointment(s)/Referral(s): Dusty Dumas DO [Primary Care Provider] - 1-2 days
--- NOTE | 2024-09-17 12:49 | P.PN ---
Subjective Progress Note Date: 09/17/24 I am following-up with patient and it seems she is doing better. She had a trach. Objective - Vital Signs Vital signs: Vital Signs Temp 98.4 F 09/17/24 12:00 Pulse 96 09/17/24 12:00 Resp 23 09/17/24 12:00 BP 114/54 09/17/24 12:00 Pulse Ox 95 09/17/24 12:00 FiO2 40 09/17/24 12:00 Intake & Output 09/16/24 09/17/24 09/17/24 18:59 06:59 18:59 Intake Total 804.915 970 507 Output Total 680 1100 515 Balance 124.915 -130 -8 Weight 78.3 kg Intake: IV 220 240 145 .9NS 220 240 20 Dextrose 5% in Water 1, 75 000 ml @ 75 mls/hr IV . [id number] [facility] Rx#:[id number] cefTRIAXone 2 gm In 50 Sodium Chloride 0.9% 50 ml @ 100 mls/hr IVPB Q24HR [facility] Rx#:[id number] Intake, IV Titration 524.915 250 Amount Dexmedetomidine/0.9% NaCl 24.915 (Pmx) 400 mcg In Empty Bag 1 bag @ 0.2 MCG/KG/HR 3.733 mls/hr IV .Q24H [facility] Rx#:[id number] Potassium Chloride 20 meq 200 In Water For Injection 1 100ml.bag @ 50 mls/hr IVPB Q2H [facility] Rx#: [id number] Vancomycin 1,250 mg In 250 250 Sodium Chloride 0.9% 250 ml @ 125 mls/hr IVPB Q16H [facility] Rx#:[id number] cefTRIAXone 2 gm In 50 Sodium Chloride 0.9% 50 ml @ 100 mls/hr IVPB Q24HR [facility] Rx#:[id number] Tube Feeding 30 360 272 Other 30 120 90 Output: Urine 680 1100 515 Other: Voiding Method Indwelling Catheter Indwelling Catheter Indwelling Catheter # Bowel Movements 0 ABP, PAP, CO, CI - Last Documented Arterial Blood Pressure 166/47 - Exam General: Lying in bed and does not appear in acute distress. Lung: Trach on a ventilator. Neuro: Is drowsy. But is awakeable to voice. Open eyes to voice. Is following few simple commands such as opening and closing eyes, smiling wiggling toes. No facial weakness. - Labs CBC & Chem 7: 09/17/24 05:05 09/17/24 05:05 Labs: Abnormal Lab Results - Last 24 Hours (Table) 09/14/24 09/16/24 09/17/24 Range/Units 11:50 05:00 05:05 WBC (3.8-10.6) k/uL RBC (3.80-5.40) m/uL Hgb (11.4-16.0) gm/dL MCV (80.0-100.0) fL Plt Count (150-450) k/uL Neutrophils # (1.3-7.7) k/uL Lymphocytes # (1.0-4.8) k/uL Macrocytosis ABG pO2 (83-108) mmHg ABG HCO3 (21-25) mmol/L ABG Total CO2 (19-24) mmol/L Hemoglobin (11.4-16.0) gm/dL Sodium 148 H (137-145) mmol/L Potassium 3.4 L (3.5-5.1) mmol/L Chloride 114 H (98-107) mmol/L BUN 43 H (7-17) mg/dL Glucose 101 H (74-99) mg/dL POC Glucose (mg/dL) (70-110) mg/dL Calcium 8.1 L (8.4-10.2) mg/dL Free T3 pg/mL 1.40 L (2.30-4.20) pg/mL Serum Albumin 1,570 L (3500 - 5200) mg/dL 09/17/24 09/17/24 09/17/24 Range/Units 05:05 05:36 11:33 WBC 11.8 H (3.8-10.6) k/uL RBC 3.20 L (3.80-5.40) m/uL Hgb 10.8 L (11.4-16.0) gm/dL MCV 107.9 H (80.0-100.0) fL Plt Count 115 L (150-450) k/uL Neutrophils # 10.4 H (1.3-7.7) k/uL Lymphocytes # 0.5 L (1.0-4.8) k/uL Macrocytosis Marked A ABG pO2 79 L (83-108) mmHg ABG HCO3 28 H (21-25) mmol/L ABG Total CO2 29 H (19-24) mmol/L Hemoglobin 10.6 L (11.4-16.0) gm/dL Sodium (137-145) mmol/L Potassium (3.5-5.1) mmol/L Chloride (98-107) mmol/L BUN (7-17) mg/dL Glucose (74-99) mg/dL POC Glucose (mg/dL) 143 H (70-110) mg/dL Calcium (8.4-10.2) mg/dL Free T3 pg/mL (2.30-4.20) pg/mL Serum Albumin (3500 - 5200) mg/dL Microbiology - Last 24 Hours (Table) 09/13/24 14:40 Blood Culture - Preliminary Blood 09/14/24 11:50 CSF Gram Stain - Preliminary Cerebral Spinal Fluid CSF Culture - Preliminary 09/13/24 16:42 Urine Culture - Final Urine,Voided Cyndi albicans Assessment and Plan Assessment: Altered mental status, likely due to toxic metabolic encephalopathy. Reasons multifactorial as mentioned below Possible cephalosporin toxicity. CSF is traumatic and has close to 4500 rbc and 16 nucleated and with correction nucleated cells are normal--mentation is is improving, following simple commands. Elevated pCO2, 65, now 46. Acute kidney injury, improving Slightly elevated ammonia Ventilatory dependent respiratory failure COPD exacerbation CHF exacerbation Acute influenza A, completed course of Tamiflu Bilateral pneumonia, treated with cefepime Septic shock, due to Klebsiella pneumonia, resolved Leukocytosis Atrial fibrillation with rapid ventricular response History of alcoholism Macrocytosis Moderate MR Nonischemic cardiomyopathy with EF 35% Hypertension Hyperlipidemia Hypothyroidism Plan: * EEG 09/08/2024 was abnormal, due to background slowing of moderate to severe degree. This is suggestive of generalized cerebral dysfunction as can be seen with toxic metabolic encephalopathy or related to diffuse structural brain abnormality. Clinical correlation is recommended. No epileptiform activity was seen. * Repeat CT head, rule out any mass lesion/CVA. * B12 1723, folate 9.7, TSH <0.015, with free T4 elevated 2.94. We will defer to IM to address abnormal thyroid functions. * Ammonia level: 34. Is slightly elevated. Will defer management to primary/ ICU team. * Repeat EEG: Preliminary is negative for seizure. * Consult ID for persistent altered mental status, and recurrent spiking temperature * Medical management as per IM, critical care and other specialties on board. The plan is discussed with the ICU nurse. Will follow-up sporadically. Time with Patient: Less than 30
--- NOTE | 2024-09-17 13:00 | P.PN ---
Subjective Progress Note Date: 09/17/24 SURGICAL PROGRESS NOTE CHIEF COMPLAINT: Respiratory failure HISTORY OF PRESENT ILLNESS: Patient is postop day #2 status post tracheostomy and PEG tube placement. Patient tolerating tube feeds. Tube feeds currently at 47 mL/h. PHYSICAL EXAM: VITAL SIGNS: Reviewed. GENERAL: Well-developed in no acute distress. HEENT: Tracheostomy site clean dry and intact. ABDOMEN: Soft. Nondistended. Nontender. PEG tube site clean dry and intact ASSESSMENT: 1. Acute hypoxic respiratory failure and unable to wean from the vent 2. Severe protein calorie malnutrition 3. COPD exacerbation, CHF exacerbation and influenza A PLAN: -They are working on transferring patient to select specialty possibly today pending insurance authorization -Continue to titrate tube feeds per dietitian recommendations Physician S[employer] Portal Consultant note has been reviewed by physician. Signing provider agrees with the documented findings, assessment, and plan of care. Objective - Vital Signs Vital signs: Vital Signs Temp 98.4 F 09/17/24 12:00 Pulse 96 09/17/24 12:00 Resp 23 09/17/24 12:00 BP 114/54 09/17/24 12:00 Pulse Ox 95 09/17/24 12:00 FiO2 40 09/17/24 12:00 Intake & Output 09/16/24 09/17/24 09/17/24 18:59 06:59 18:59 Intake Total 804.915 970 507 Output Total 680 1100 515 Balance 124.915 -130 -8 Weight 78.3 kg Intake: IV 220 240 145 .9NS 220 240 20 Dextrose 5% in Water 1, 75 000 ml @ 75 mls/hr IV . [id number] [facility] Rx#:[id number] cefTRIAXone 2 gm In 50 Sodium Chloride 0.9% 50 ml @ 100 mls/hr IVPB Q24HR [facility] Rx#:[id number] Intake, IV Titration 524.915 250 Amount Dexmedetomidine/0.9% NaCl 24.915 (Pmx) 400 mcg In Empty Bag 1 bag @ 0.2 MCG/KG/HR 3.733 mls/hr IV .Q24H [facility] Rx#:[id number] Potassium Chloride 20 meq 200 In Water For Injection 1 100ml.bag @ 50 mls/hr IVPB Q2H [facility] Rx#: [id number] Vancomycin 1,250 mg In 250 250 Sodium Chloride 0.9% 250 ml @ 125 mls/hr IVPB Q16H [facility] Rx#:[id number] cefTRIAXone 2 gm In 50 Sodium Chloride 0.9% 50 ml @ 100 mls/hr IVPB Q24HR [facility] Rx#:[id number] Tube Feeding 30 360 272 Other 30 120 90 Output: Urine 680 1100 515 Other: Voiding Method Indwelling Catheter Indwelling Catheter Indwelling Catheter # Bowel Movements 0 ABP, PAP, CO, CI - Last Documented Arterial Blood Pressure 166/47 - Labs CBC & Chem 7: 09/17/24 05:05 09/17/24 05:05 Labs: Abnormal Lab Results - Last 24 Hours (Table) 09/14/24 09/16/24 09/17/24 Range/Units 11:50 05:00 05:05 WBC (3.8-10.6) k/uL RBC (3.80-5.40) m/uL Hgb (11.4-16.0) gm/dL MCV (80.0-100.0) fL Plt Count (150-450) k/uL Neutrophils # (1.3-7.7) k/uL Lymphocytes # (1.0-4.8) k/uL Macrocytosis ABG pO2 (83-108) mmHg ABG HCO3 (21-25) mmol/L ABG Total CO2 (19-24) mmol/L Hemoglobin (11.4-16.0) gm/dL Sodium 148 H (137-145) mmol/L Potassium 3.4 L (3.5-5.1) mmol/L Chloride 114 H (98-107) mmol/L BUN 43 H (7-17) mg/dL Glucose 101 H (74-99) mg/dL POC Glucose (mg/dL) (70-110) mg/dL Calcium 8.1 L (8.4-10.2) mg/dL Free T3 pg/mL 1.40 L (2.30-4.20) pg/mL Serum Albumin 1,570 L (3500 - 5200) mg/dL 09/17/24 09/17/24 09/17/24 Range/Units 05:05 05:36 11:33 WBC 11.8 H (3.8-10.6) k/uL RBC 3.20 L (3.80-5.40) m/uL Hgb 10.8 L (11.4-16.0) gm/dL MCV 107.9 H (80.0-100.0) fL Plt Count 115 L (150-450) k/uL Neutrophils # 10.4 H (1.3-7.7) k/uL Lymphocytes # 0.5 L (1.0-4.8) k/uL Macrocytosis Marked A ABG pO2 79 L (83-108) mmHg ABG HCO3 28 H (21-25) mmol/L ABG Total CO2 29 H (19-24) mmol/L Hemoglobin 10.6 L (11.4-16.0) gm/dL Sodium (137-145) mmol/L Potassium (3.5-5.1) mmol/L Chloride (98-107) mmol/L BUN (7-17) mg/dL Glucose (74-99) mg/dL POC Glucose (mg/dL) 143 H (70-110) mg/dL Calcium (8.4-10.2) mg/dL Free T3 pg/mL (2.30-4.20) pg/mL Serum Albumin (3500 - 5200) mg/dL Microbiology - Last 24 Hours (Table) 09/13/24 14:40 Blood Culture - Preliminary Blood 09/14/24 11:50 CSF Gram Stain - Preliminary Cerebral Spinal Fluid CSF Culture - Preliminary 09/13/24 16:42 Urine Culture - Final Urine,Voided Cyndi albicans
[2024-09-17 13:08] VITALS: BP 97/69; PULSE 84; RESP 20
--- NOTE | 2024-09-17 14:14 | P.PN ---
Subjective Progress Note Date: 09/17/24 Principal diagnosis: Acute hypoxic respiratory failure, multifactorial acute influenza A infection with acute exacerbation of COPD This is a 74-year-old female, familiar to my service, patient is known to have history of COPD, severe, history of chronic cor pulmonale, history of nonischemic cardiomyopathy and LV dysfunction as well as history of chronic atrial fibrillation maintained on Coumadin. Patient is also known to have history of moderate mitral regurgitation. Patient is normally on oxygen at 2 L/min, she is normally on diuretics, and she was very seen about a week ago in my office with worsening swelling of her lower extremities, and patient was placed on Aldactone in addition to her Lasix. Her leg swelling improved, however patient came into the ER on 08/28/2024, came in mostly with worsening shortness of breath, cough, wheezing, apparently when she was brought in by EMS she was found to be in tripod position and she was breathing quite heavy. Patient was placed on BiPAP, that seemed to improve her pulmonary status significantly on BiPAP. In the ER, patient was noted to have positive screening for acute influenza A. Last night I was notified about this patient about her shortness of breath and being BiPAP dependent, patient is known to have history of alcohol drinking, and there was also a concern about the patient going into alcohol withdrawal. Patient required some Ativan, admitted to the ICU for close monitoring. I was asked to see her in consultation. In addition to her COPD, patient had positive screening for influenza A. Today I saw the patient in the ICU, she is still on BiPAP 12/5/40%, patient is receiving Lasix, she is also on Aldactone, patient is on Tamiflu, and she is on her usual bronchodilators and on Solu-Medrol. WBC count is 11.9 hemoglobin 12.3 INR is 3.1 electrolytes are normal renal profile is normal troponin is less than 0.012 Evaluated today on 08/31/2024, patient remains in the ICU, patient is on 4 L nasal cannula, last night she was on BiPAP 12/5/40%, patient remains on bronchodilators, Lasix, Coumadin, and she is also on doxycycline. Baseline FEV1 from my office chart is 42% at best. Clearly the patient has severe underlying COPD. Patient is now on nasal cannula, had to be on BiPAP yesterday. Chest x- ray today is suggestive of interstitial edema, underlying pneumonia is felt to be less likely but not entirely ruled out. WBC count is 11.4 hemoglobin is 14.3 INR is 3.3 electrolytes are normal bicarb is 4 0 BUN is 27 creatinine 0.66 On 09/12/2024, the patient is being seen for a follow-up. Some limited improvement in level of consciousness. She is opening her eyes and responding to simple questions. Nevertheless, profoundly weak, unable to move her extremities yet. She remains of sedation for more than 4 days. Noted the patient was intubated on 09/02/2024. She is on assist-control mode of mechanical ventilation at rate of 20, tidal volume of 400, FiO2 40% with a PEEP of 5. Blo od gas showed a pH of 7.54 with a pCO2 of 44 and pO2 of 98. Noted the patient has been off propofol since 09/09/2024. Fluid balance is -711 cc. The patient remains on vital HP at a rate of 55 cc an hour. Cardiac rhythm is sinus. The white cell count is at 22 with a heme of 12.9 and a platelet count of 219. Sodium is at 139, potassium is 4.2, bicarb is at 40, BUN 70 with a creatinine of 0.7. Chest x-ray findings are essentially unchanged. The patient continues to have diffuse interstitial changes bilaterally with a small right-sided pleural effusion. I had a discussion with the family. Based on her ongoing slow recovery mentation and profound generalized weakness, she may be a good c andidate for insertion of a tracheostomy and a PEG tube. No plans for lumbar puncture for today. On 09/13/2024, patient is being seen for a follow-up. Opens her eyes spontaneously. Does not follow commands. Grimaces to painful stimulation. Motor functions are absent. Remains on mechanical ventilator assist-control mode rate of 20, tidal volume 450, FiO2 of 40% with a PEEP of 5. Blood gas sh owed pH of 7.46 with a pCO2 of 46 and pO2 of 92. Fluid balance is -711 cc over the past 24 hours. Follow-up chest x-ray from today shows stable findings. Some atelectatic change left lung base and cardiomegaly and pulm vessel congestion. Improvement in the volume status compared to earlier chest x-rays. White cell count is at 20, hemoglobin 12 and a platelet count of 187. The sodium levels at 139, potassium is at 3.4, BUN 65 with a creatinine of 0.7. Blood sugar is 170. Remains on IV cefepime. Remains on Lantus insulin for blood sugar control 30 units along with NovoLog 10 units with meals. The patient is also on a combination of metoprolol and amiodarone. Cardiac rhythm is sinus. No episodes of atrial fibrillation. She remains on low-dose norepinephrine running at 0.06 mcg/kg/min. On 09/14/2024, neurologic functions are essentially unchanged. Remains unresponsive to verbal. She grimaces and she says it is painful stimulation. No significant motor function. Remains intubated on mechanical ventilator. She was running a low-grade fever and fever workup is in progress. Repeat cultures were sent. The patient was taken off IV cefepime and switched to vancomycin. She is on assist-control mode with rate of 20, tidal volume of 450, FiO2 40% with a PEEP of 5. pH is 7.45 with a pCO2 of 43 and pO2 of 107. Chest x-ray findings are essentially stable without any significant airspace disease or consolidation. The follow-up chest x-ray from today shows some mild pulm vascular congestion otherwise no other acute abnormalities noted. Fluid balance is +566 cc over the past 24 hours. The patient is on KVO IV fluids. The patient is on vital high-protein rate of 50 cc an hour. Remains on low-dose norepinephrine at 0.02 mcg/kg/min. The white cell count is at 11.5 with a hemoglobin 11.1 and a platelet count of 136. The sodium is at 142, bicarb is at 34, BUN is 55 with a creatinine of 0.7. AST is 43, ALT is 94.Repeat CAT scan of the brain was done on 09/14/2024 and showed no acute intracranial process. There is remote left basal ganglia lacunar injury with some nonspecific white matter changes secondary to chronic microangiopathy and chronic sinus disease.The most recent procalcitonin level is at 0.27 Patient was seen today on 09/15/2024, patient remains in the ICU intubated and mechanically ventilated, apparently multiple trials for weaning failed, patient is now scheduled for tracheostomy PEG tube placement today. She will also need a PICC line. Patient is on assist-control rate of 20 tidal volume 450 FiO2 40% PEEP of 5 ABG showed a pO2 of 100 pCO2 41 pH of 7.45 hence no changes were made in her vent settings. Patient remains on Precedex at 0.8 mcg/kg/h she is on LR at 20 cc/h vital HP at goal presently on hold she is also on Rocephin and vancomycin. Urine output has been about 50 cc/h. Chest x-ray is suggestive of fluid overload with mild basilar infiltrate/atelectasis greater on the left. There is also small pleural effusions. Her WBC count today is 10.5 hemoglobin 10.9 hematocrit 33.9 electrolytes are normal BUN is 52 creatinine 0.63. Again patient is scheduled to have a PEG tube and a tracheostomy done today as she has been intubated for almost 2 weeks, and she is not ready to be weaned or extubated. Patient was seen today on 09/16/2024, remains in the ICU, intubated and mechanically ventilated. Yesterday the patient underwent uneventful tracheostomy and PEG tube placement. And has been on Precedex at 0.3 mcg/kg/h, patient is about the same overall, her mentation seems to be slightly improving and she is following simple instructions today. Ventilator almeida she is on assist-control rate of 20 tidal volume of 450 FiO2 40% and PEEP of 5. ABG today showed a pO2 of 82 pCO2 4 0 pH of 7.47. Chest x-ray is showing small left pleural effusion and atelectasis. WBC count is 14.5 hemoglobin 11.6, basic metabolic profile is normal BUN is 45 creatinine 0.7 Patient was seen today on 09/17/2024, patient remains in the ICU, intubated and mechanically ventilated. Patient the patient was given a trial of pressure amaro pport and CPAP, she was also given a trial of trach collar, tolerated the whole process for about 4 hours. Today she is back on mechanical ventilation, she is on assist-control rate of 20 tidal volume 450 FiO2 40% and PEEP of 5 patient is arousable, follows simple instructions, hence went ahead and recommended again a trial of pressure support 12 and CPAP. [facility] and this process is pending. Patient is on enteral feeding, she is on D5W at 75 cc/h her sodium today is 148. Chest x-ray showed nonspecific bibasilar atelectasis. Objective - Vital Signs Vital signs: Vital Signs Temp 98.4 F 09/17/24 12:00 Pulse 84 09/17/24 13:00 Resp 20 09/17/24 13:00 BP 97/69 09/17/24 13:00 Pulse Ox 96 09/17/24 13:00 FiO2 40 09/17/24 13:00 Intake & Output 09/16/24 09/17/24 09/17/24 18:59 06:59 18:59 Intake Total 804.915 970 629 Output Total 680 1100 570 Balance 124.915 -130 59 Weight 78.3 kg Intake: IV 220 240 220 .9NS 220 240 20 Dextrose 5% in Water 1, 150 000 ml @ 75 mls/hr IV . [id number] [facility] Rx#:[id number] cefTRIAXone 2 gm In 50 Sodium Chloride 0.9% 50 ml @ 100 mls/hr IVPB Q24HR [facility]LY Rx#:[id number] Intake, IV Titration 524.915 250 Amount Dexmedetomidine/0.9% NaCl 24.915 (Pmx) 400 mcg In Empty Bag 1 bag @ 0.2 MCG/KG/HR 3.733 mls/hr IV .Q24H [facility]LY Rx#:[id number] Potassium Chloride 20 meq 200 In Water For Injection 1 100ml.bag @ 50 mls/hr IVPB Q2H CARLY Rx#: [id number] Vancomycin 1,250 mg In 250 250 Sodium Chloride 0.9% 250 ml @ 125 mls/hr IVPB Q16H [facility] Rx#:[id number] cefTRIAXone 2 gm In 50 Sodium Chloride 0.9% 50 ml @ 100 mls/hr IVPB Q24HR [facility]LY Rx#:[id number] Tube Feeding 30 360 319 Other 30 120 90 Output: Urine 680 1100 570 Other: Voiding Method Indwelling Catheter Indwelling Catheter Indwelling Catheter # Bowel Movements 0 ABP, PAP, CO, CI - Last Documented Arterial Blood Pressure 166/47 - Exam GENERAL EXAM: Revealed 72-year-old female intubated HEAD: Normocephalic. EYES: PERRLA, EOMI, NOSE: Clear with pink turbinates. THROAT: Tracheostomy seems to be intact moist mucous membranes NECK: No masses, no JVD. CHEST: No chest wall deformity. LUNGS: Equal air entry with few, no rhonchi no wheezes CVS: S1 and S2 normal with no audible murmur, regular rhythm. ABDOMEN: No hepatosplenomegaly, normal bowel sounds, no guarding or rigidity. SKIN: Areas of ecchymosis and bruising. Weeping skin noted mostly on the forearms specially right forearm area CENTRAL NERVOUS SYSTEM: Arousable, off sedation, follows very simple instructions but seems to be generally weak EXTREMITIES: Right radial arterial line in place. Trace of bipedal edema - Labs CBC & Chem 7: 09/17/24 05:05 09/17/24 05:05 Labs: Abnormal Lab Results - Last 24 Hours (Table) 09/16/24 09/17/24 09/17/24 Range/Units 05:00 05:05 05:05 WBC 11.8 H (3.8-10.6) k/uL RBC 3.20 L (3.80-5.40) m/uL Hgb 10.8 L (11.4-16.0) gm/dL MCV 107.9 H (80.0-100.0) fL Plt Count 115 L (150-450) k/uL Neutrophils # 10.4 H (1.3-7.7) k/uL Lymphocytes # 0.5 L (1.0-4.8) k/uL Macrocytosis Marked A ABG pO2 (83-108) mmHg ABG HCO3 (21-25) mmol/L ABG Total CO2 (19-24) mmol/L Hemoglobin (11.4-16.0) gm/dL Sodium 148 H (137-145) mmol/L Potassium 3.4 L (3.5-5.1) mmol/L Chloride 114 H (98-107) mmol/L BUN 43 H (7-17) mg/dL Glucose 101 H (74-99) mg/dL POC Glucose (mg/dL) (70-110) mg/dL Calcium 8.1 L (8.4-10.2) mg/dL Free T3 pg/mL 1.40 L (2.30-4.20) pg/mL 09/17/24 09/17/24 Range/Units 05:36 11:33 WBC (3.8-10.6) k/uL RBC (3.80-5.40) m/uL Hgb (11.4-16.0) gm/dL MCV (80.0-100.0) fL Plt Count (150-450) k/uL Neutrophils # (1.3-7.7) k/uL Lymphocytes # (1.0-4.8) k/uL Macrocytosis ABG pO2 79 L (83-108) mmHg ABG HCO3 28 H (21-25) mmol/L ABG Total CO2 29 H (19-24) mmol/L Hemoglobin 10.6 L (11.4-16.0) gm/dL Sodium (137-145) mmol/L Potassium (3.5-5.1) mmol/L Chloride (98-107) mmol/L BUN (7-17) mg/dL Glucose (74-99) mg/dL POC Glucose (mg/dL) 143 H (70-110) mg/dL Calcium (8.4-10.2) mg/dL Free T3 pg/mL (2.30-4.20) pg/mL Microbiology - Last 24 Hours (Table) 09/13/24 14:40 Blood Culture - Preliminary Blood 09/14/24 11:50 CSF Gram Stain - Preliminary Cerebral Spinal Fluid CSF Culture - Preliminary Assessment and Plan Assessment: Impression:Acute on chronic hypoxic respiratory failure secondary to a COPD exacerbation, systolic CHF exacerbation, influenza A. Acute exacerbation of COPD, remains on bronchodilators Acute on chronic systolic congestive heart failure. The patient has impairment of the LV function with an ejection fraction of 35%, nonischemic cardiomyopathy with moderate degree of mitral regurgitation. Bilateral pneumonia, likely superinfection following influenza A infection and the patient has positive cultures with Streptococcus pneumonia and Klebsiella oxytoca. Leukocytosis, secondary to above Atrial fibrillation with rapid ventricular response, presently in normal sinus rhythm, patient received cardioversion on 09/07 and she is on amiodarone History of alcoholism Acute metabolic encephalopathy, improving Moderate mitral regurgitation Nonischemic cardiomyopathy, EF of 35% Hypertension Dyslipidemia Hypothyroidism, thyroid function tests were noted, free T4 is elevated Status post tracheostomy and PEG tube placement on 09/15/2024 Recommendation: Will place the patient today on pressure support and CPAP, this will be a pressure support of 12 and CPAP Continue antibiotics Patient is now off Precedex Continue GI and DVT prophylaxis Continue present meds, and I will clear the patient for [facility] for further trials of weaning from mechanical ventilation. Patient is now stable enough for transfer. Time with Patient: Less than 30
--- NOTE | 2024-09-17 15:27 | P.PN ---
Subjective Progress Note Date: 09/17/24 Principal diagnosis: Reason for follow-up fever pneumonia Patient is a 74-year-old female with a past medical history significant for hypertension COPD heart failure, atrial fibrillation presenting to the hospital on 08/28/2024 for evaluation of increasing shortness of breath, patient did require intubation during this hospital stay and sputum culture have been positive initially for strep pneumo subsequently Klebsiella infectious he consulted because of persistent fever. Patient did have a trach and PEG procedure completed on 09/15/2024. On today's evaluation that is 09/17/2024,the patient remains to be afebrile patient remains to be intubated on the vent through the trach FiO2 stable at 40% hemodynamically stable not requiring any pressor support no diarrhea and the changes reported by the nursing staff. The patient white count is down to 11.8, creatinine is 0.65 Objective - Vital Signs Vital signs: Vital Signs Temp 98.4 F 09/17/24 12:00 Pulse 96 09/17/24 12:00 Resp 23 09/17/24 12:00 BP 114/54 09/17/24 12:00 Pulse Ox 95 09/17/24 12:00 FiO2 40 09/17/24 12:00 Intake & Output 09/16/24 09/17/24 09/17/24 18:59 06:59 18:59 Intake Total 804.915 970 507 Output Total 680 1100 515 Balance 124.915 -130 -8 Weight 78.3 kg Intake: IV 220 240 145 .9NS 220 240 20 Dextrose 5% in Water 1, 75 000 ml @ 75 mls/hr IV . [id number] [facility] Rx#:[id number] cefTRIAXone 2 gm In 50 Sodium Chloride 0.9% 50 ml @ 100 mls/hr IVPB Q24HR [facility] Rx#:[id number] Intake, IV Titration 524.915 250 Amount Dexmedetomidine/0.9% NaCl 24.915 (Pmx) 400 mcg In Empty Bag 1 bag @ 0.2 MCG/KG/HR 3.733 mls/hr IV .Q24H [facility] Rx#:[id number] Potassium Chloride 20 meq 200 In Water For Injection 1 100ml.bag @ 50 mls/hr IVPB Q2H [facility] Rx#: [id number] Vancomycin 1,250 mg In 250 250 Sodium Chloride 0.9% 250 ml @ 125 mls/hr IVPB Q16H [facility] Rx#:[id number] cefTRIAXone 2 gm In 50 Sodium Chloride 0.9% 50 ml @ 100 mls/hr IVPB Q24HR [facility] Rx#:[id number] Tube Feeding 30 360 272 Other 30 120 90 Output: Urine 680 1100 515 Other: Voiding Method Indwelling Catheter Indwelling Catheter # Bowel Movements 0 ABP, PAP, CO, CI - Last Documented Arterial Blood Pressure 166/47 - Exam GENERAL DESCRIPTION: An elderly female intubated through the trach on the vent RESPIRATORY SYSTEM: Unlabored breathing , decreased breath sounds at bases HEART: S1 S2 regular rate and rhythm , ABDOMEN: Soft , no tenderness EXTREMITIES: No edema feet - Labs CBC & Chem 7: 09/17/24 05:05 09/17/24 05:05 Labs: Abnormal Lab Results - Last 24 Hours (Table) 09/14/24 09/16/24 09/17/24 Range/Units 11:50 05:00 05:05 WBC (3.8-10.6) k/uL RBC (3.80-5.40) m/uL Hgb (11.4-16.0) gm/dL MCV (80.0-100.0) fL Plt Count (150-450) k/uL Neutrophils # (1.3-7.7) k/uL Lymphocytes # (1.0-4.8) k/uL Macrocytosis ABG pO2 (83-108) mmHg ABG HCO3 (21-25) mmol/L ABG Total CO2 (19-24) mmol/L Hemoglobin (11.4-16.0) gm/dL Sodium 148 H (137-145) mmol/L Potassium 3.4 L (3.5-5.1) mmol/L Chloride 114 H (98-107) mmol/L BUN 43 H (7-17) mg/dL Glucose 101 H (74-99) mg/dL POC Glucose (mg/dL) (70-110) mg/dL Calcium 8.1 L (8.4-10.2) mg/dL Free T3 pg/mL 1.40 L (2.30-4.20) pg/mL Serum Albumin 1,570 L (3500 - 5200) mg/dL 09/17/24 09/17/24 09/17/24 Range/Units 05:05 05:36 11:33 WBC 11.8 H (3.8-10.6) k/uL RBC 3.20 L (3.80-5.40) m/uL Hgb 10.8 L (11.4-16.0) gm/dL MCV 107.9 H (80.0-100.0) fL Plt Count 115 L (150-450) k/uL Neutrophils # 10.4 H (1.3-7.7) k/uL Lymphocytes # 0.5 L (1.0-4.8) k/uL Macrocytosis Marked A ABG pO2 79 L (83-108) mmHg ABG HCO3 28 H (21-25) mmol/L ABG Total CO2 29 H (19-24) mmol/L Hemoglobin 10.6 L (11.4-16.0) gm/dL Sodium (137-145) mmol/L Potassium (3.5-5.1) mmol/L Chloride (98-107) mmol/L BUN (7-17) mg/dL Glucose (74-99) mg/dL POC Glucose (mg/dL) 143 H (70-110) mg/dL Calcium (8.4-10.2) mg/dL Free T3 pg/mL (2.30-4.20) pg/mL Serum Albumin (3500 - 5200) mg/dL Microbiology - Last 24 Hours (Table) 09/13/24 14:40 Blood Culture - Preliminary Blood 09/14/24 11:50 CSF Gram Stain - Preliminary Cerebral Spinal Fluid CSF Culture - Preliminary 09/13/24 16:42 Urine Culture - Final Urine,Voided Cyndi albicans Assessment and Plan (1) Sepsis Status: Acute Code(s): A41.9 - SEPSIS, UNSPECIFIED ORGANISM SNOMED Code(s): 67732425 (2) Pneumonia Status: Acute Code(s): J18.9 - PNEUMONIA, UNSPECIFIED ORGANISM SNOMED Code(s): 638884286 (3) UTI (urinary tract infection) Status: Acute Code(s): N39.0 - URINARY TRACT INFECTION, SITE NOT SPECIFIED SNOMED Code(s): 88229975 Plan: 1patient with sepsis in this patient who did have fever elevated white count in this patient with acute respiratory failure requiring intubation and has been the hospital for almost 16 days before initial consultation source of the persis tent fever could be related to the multiple lines the patient has including supplement as to outlines and will need to cover for the gram-positive skin yuliya to be the likely pathogen 2-blood culture has been negative so far urine is growing Cyndi 3-patient did have resolution of the fever the patient white count is trending down plan is to continue Diflucan, vancomycin and Rocephin another 5 to 7 days Dictation was produced using [employer] dictation software. please excuse any grammatical, word or spelling errors. Time with Patient: Less than 30
--- NOTE | 2024-09-18 11:28 | CDI ---
Documentation Clarification Form Date: 09/18/2024 11:08:03 AM From: Sarah Meyer Phone: Admit Date: 08/28/2024 08:52:00 PM Patient Name: Emilia Woodward Visit Number: [id number] Discharge Date: 09/17/2024 01:20:00 PM ATTENTION: The Clinical Documentation Specialists (CDI) and [facility] Coding Staff appreciate your assistance in clarifying documentation. Please respond to the clarification below the line at the bottom and electronically sign. The CDI & [facility] Coding staff will review the response and follow-up if needed. Please note: Queries are made part of the Legal Health Record. If you have any questions, please contact the author of this message via ITS. Doctor/Provider: Debi Fisher Conflicting documentation has been found in the medical record. As attending physician, please provide clarification. Hyperthyroidism per 09/14- 09/16 Progress Note and DCS d/c IV levothyroxine, repeat labs in 48-72 hours, if improved, can; resume PO levothyroxine at 75% dose; AM cortisol ordered Hypothyroidism per H&P, Progress Notes 08/29-09/08 09/10-09/13, 09/15-09/17 Levothyroxine 100 mcgdaily History/Risk Factors: 74yo F, Septic Shock, ACHRF, InfluenzaA, KlebsiellaandStrepPNA CAP, AECOPD, ACHFrEFrequiring ET & trach & PEG, PHTN, MR/TR, TME, quadriparesis d/tcritical illness myopathy, ETOH dependence, perm A Fib, UTI, yarelis Clinical Indicators: AM cortisol ordered, and normal Started on amiodarone 400 mg p.o. twice daily, dose decreased to 200 mg twice daily 09/10; r/t hyperthyroidism below - AIT 1 and 2 are very unlikely given timing, repeat in 6 weeks recommended. Treatment: see above- listed w each Dx Please clarify which diagnosis is most appropriate: [ ] Hyperthyroidism [ ] Due to levothyroxine [ ] Due to (please specify) [ ] Present on Admission [ ] Not Present on Admission [ x] Hypothyroidism [ ] Other (please specify) [ ] Unable to determine (Template Last Revised: September 2020) MTDD
== END 2024-09-17 13:20 | DRG 4 ==
LOC: EC 17:48 → 3SCARD 20:52 → 1SOBS 21:02 → 3SCARD 21:06 → 2SICU 08-29 22:30
PROVIDERS: ADMIT Internal Medicine; ATTEND Internal Medicine
PROC: 5A09357 Assistance with Respiratory Ventilation, Less than 24 Consecutive Hours, Continuous Positive Airway Pressure (ICD-10-PCS; principal; 2024-08-28)
PROC: 5A1955Z Respiratory Ventilation, Greater than 96 Consecutive Hours (ICD-10-PCS; 2024-09-02)
PROC: 03HY32Z Insertion of Monitoring Device into Upper Artery, Percutaneous Approach (ICD-10-PCS; 2024-09-02)
PROC: 4A133B1 Monitoring of Arterial Pressure, Peripheral, Percutaneous Approach (ICD-10-PCS; 2024-09-02)
PROC: 4A133J1 Monitoring of Arterial Pulse, Peripheral, Percutaneous Approach (ICD-10-PCS; 2024-09-02)
PROC: 0BH18EZ Insertion of Endotracheal Airway into Trachea, Via Natural or Artificial Opening Endoscopic (ICD-10-PCS; 2024-09-02)
PROC: 02HV33Z Insertion of Infusion Device into Superior Vena Cava, Percutaneous Approach (ICD-10-PCS; 2024-09-02)
PROC: 3E043XZ Introduction of Vasopressor into Central Vein, Percutaneous Approach (ICD-10-PCS; 2024-09-02)
PROC: 3E0G76Z Introduction of Nutritional Substance into Upper GI, Via Natural or Artificial Opening (ICD-10-PCS; 2024-09-03)
PROC: 5A2204Z Restoration of Cardiac Rhythm, Single (ICD-10-PCS; 2024-09-03)
PROC: 009U3ZX Drainage of Spinal Canal, Percutaneous Approach, Diagnostic (ICD-10-PCS; 2024-09-14)
PROC: 0DH63UZ Insertion of Feeding Device into Stomach, Percutaneous Approach (ICD-10-PCS; 2024-09-15)
PROC: 0B110F4 Bypass Trachea to Cutaneous with Tracheostomy Device, Open Approach (ICD-10-PCS; 2024-09-15 07:30)
DX: A41.59 Other Gram-negative sepsis (principal); R65.21 Severe sepsis with septic shock; J15.0 Pneumonia due to Klebsiella pneumoniae; R57.8 Other shock; G92.8 Other toxic encephalopathy; J10.08 Influenza due to other identified influenza virus with other specified pneumonia; G82.50 Quadriplegia, unspecified; I50.23 Acute on chronic systolic (congestive) heart failure; E43 Unspecified severe protein-calorie malnutrition; J13 Pneumonia due to Streptococcus pneumoniae; J96.21 Acute and chronic respiratory failure with hypoxia; J96.22 Acute and chronic respiratory failure with hypercapnia; G72.81 Critical illness myopathy; D68.318 Other hemorrhagic disorder due to intrinsic circulating anticoagulants, antibodies, or inhibitors; J44.1 Chronic obstructive pulmonary disease with (acute) exacerbation; I27.29 Other secondary pulmonary hypertension; I11.0 Hypertensive heart disease with heart failure; E03.9 Hypothyroidism, unspecified; Z68.30 Body mass index [BMI] 30.0-30.9, adult; I08.1 Rheumatic disorders of both mitral and tricuspid valves; J44.0 Chronic obstructive pulmonary disease with (acute) lower respiratory infection; I42.8 Other cardiomyopathies; I48.21 Permanent atrial fibrillation; F10.939 Alcohol use, unspecified with withdrawal, unspecified; N17.9 Acute kidney failure, unspecified; E87.3 Alkalosis; B37.49 Other urogenital candidiasis; I27.81 Cor pulmonale (chronic); E83.42 Hypomagnesemia; R74.01 Elevation of levels of liver transaminase levels; E80.6 Other disorders of bilirubin metabolism; E78.5 Hyperlipidemia, unspecified; N20.0 Calculus of kidney; E87.5 Hyperkalemia; F41.9 Anxiety disorder, unspecified; R73.9 Hyperglycemia, unspecified; R53.81 Other malaise; D75.89 Other specified diseases of blood and blood-forming organs; H55.09 Other forms of nystagmus; R31.9 Hematuria, unspecified; K59.00 Constipation, unspecified; E07.81 Sick-euthyroid syndrome; Z99.81 Dependence on supplemental oxygen; Z87.891 Personal history of nicotine dependence; Z79.01 Long term (current) use of anticoagulants; Z79.899 Other long term (current) drug therapy; Z79.51 Long term (current) use of inhaled steroids; Z79.890 Hormone replacement therapy
CPT/HCPCS: 36415; 36573; 36600; 43246; 70450; 71045; 76705; 80048; 80053; 80076; 80202; 81001; 82040; 82042; 82140; 82164; 82533; 82550; 82607; 82746; 82784; 82805; 82945; 83036; 83605; 83735; 83880; 83916; 83921; 84132; 84145; 84157; 84439; 84443; 84450; 84460; 84481; 84484; 85025; 85027; 85610; 85730; 86140; 86695; 86696; 86787; 87040; 87070; 87077; 87086; 87186; 87205; 87496; 87498; 87529; 87636; 87798; 89050; 93005; 93306; 93308; 94002; 94003; 94640; 94660; 95822; 96365; 96366; 96375; 96376; 99291